=== PATIENT | male | born 1940 | race Hispanic/Latino ===

== ENCOUNTER 2017-11-06 16:53 | Inpatient (IN) | payer MEDICARE ==
[2017-11-06 16:53] VITALS: BMI 19.8
--- NOTE | 2017-11-06 17:52 | ED PDOC ---
Arrival/HPI - General Chief Complaint: Abnormal Labs Time Seen by Provider: 11/06/17 17:22 Historian: Patient - History of Present Illness Narrative History of Present Illness (Text): 11/06/17 17:43 77yo male with PMHx of hypertension referred to ED by Dr. Thomas for admission. Patient had elevated Cr today during a pre testing lab. Per Dr. thomas he discussed case with both Dr. Holder and Dr. Pedraza and pt will be admitted for the new finding. In ED patient complained of his right great toe pain x months. He was scheduled for angiogram secondary to the foot pain/ discoloration. Denies chest pain, fever, any other complaint. Past Medical History - Provider Review Nursing Documentation Reviewed: Yes - Cardiac Hx Pacemaker: No - Neurological Hx Paralysis: No - Hematological/Oncological Hx Blood Transfusions: No - Musculoskeletal/Rheumatological Hx Musculoskeletal Disorders: No - Psychiatric Hx Emotional Abuse: No Hx Physical Abuse: No Hx Substance Use: No - Past Surgical History Past Surgical History: No Previous - Anesthesia Hx Anesthesia Reactions: No Hx Malignant Hyperthermia: No - Suicidal Assessment Feels Threatened In Home Enviroment: No Family/Social History - Physician Review Nursing Documentation Reviewed: Yes Family/Social History: Unknown Family HX Smoking Status: Current Some Days Smoker Hx Alcohol Use: No Hx Substance Use: No Hx Substance Use Treatment: No Allergies/Home Meds Allergies/Adverse Reactions: Allergies No Known Allergies Allergy (Verified 01/06/13 13:45) Home Medications: Home Meds Medication Instructions Recorded Confirmed Ciprofloxacin [Cipro] 500 mg PO BID 11/05/17 11/06/17 Lisinopril/Hydrochlorothiazide 1 tab PO DAILY 11/05/17 11/06/17 [Lisinopril-Hctz 20-25 mg Tab] Oxycodone HCl/Acetaminophen 1 tab PO Q8H PRN 11/05/17 11/06/17 [Endocet 5-325 Tablet] amLODIPine [Norvasc] 5 mg PO DAILY 11/05/17 11/06/17 Review of Systems - Physician Review All systems were reviewed & negative as marked: Yes - Review of Systems Constitutional: Normal Eyes: Normal ENT: Normal Respiratory: Normal Cardiovascular: Normal Gastrointestinal: Normal Genitourinary Male: Normal Musculoskeletal: Arthralgias (Right great toe pain/redness) Skin: Normal Neurological: Normal Endocrine: Normal Hemo/Lymphatic: Normal Psychiatric: Normal Physical Exam Vital Signs Reviewed: Yes Vital Signs Temp Pulse Resp BP Pulse Ox 11/06/17 21:52 78 18 147/81 100 11/06/17 19:50 61 12 127/64 100 11/06/17 16:59 97.6 F 60 18 131/71 100 Temperature: Afebrile Blood Pressure: Normal Pulse: Regular Respiratory Rate: Normal Appearance: Positive for: Well-Appearing, Non-Toxic, Comfortable Pain Distress: None Mental Status: Positive for: Alert and Oriented X 3 - Systems Exam Head: Present: Atraumatic, Normocephalic Pupils: Present: PERRL Extroacular Muscles: Present: EOMI Conjunctiva: Present: Normal Mouth: Present: Moist Mucous Membranes Neck: Present: Normal Range of Motion Respiratory/Chest: Present: Clear to Auscultation, Good Air Exchange. No: Respiratory Distress, Accessory Muscle Use Cardiovascular: Present: Regular Rate and Rhythm, Normal S1, S2. No: Murmurs Abdomen: Present: Normal Bowel Sounds. No: Tenderness, Distention, Peritoneal Signs Back: Present: Normal Inspection Upper Extremity: Present: Normal Inspection. No: Cyanosis, Edema Lower Extremity: Present: NORMAL PULSES (Decreased right pedis pulse), Erythema (Right great toe). No: Edema, CALF TENDERNESS, Tenderness, Swelling Neurological: Present: GCS=15, CN II-XII Intact, Speech Normal Skin: Present: Warm, Dry, Normal Color. No: Rashes Psychiatric: Present: Alert, Oriented x 3, Normal Insight, Normal Concentration Medical Decision Making ED Course and Treatment: 11/06/17 23:46 Pt referred to ED by Dr. Thomas for admission into Dr. Pedraza service. He DC with Dr. Olivera. Pt was seen in ED and admitted to Dr. Pedraza's service. He was treated for Hyperkalemeia. He had no EKG changes. - Medication Orders Current Medication Orders: Discontinued Medications Calcium Gluconate (Calcium Gluconate Iv) 1,000 mg IVP STAT STA Stop: 11/06/17 20:04 Last Admin: 11/06/17 21:02 Dose: 1,000 mg IVP Administration Document 11/06/17 21:02 YP (Rec: 11/06/17 21:03 YP [id number]) Charges for Administration # of IVP Administrations 1 Dextrose (Dextrose 50% Inj) 50 ml IVP STAT STA Stop: 11/06/17 20:04 Last Admin: 11/06/17 21:03 Dose: 50 ml IVP Administration Document 11/06/17 21:03 YP (Rec: 11/06/17 21:03 YP [id number]) Charges for Administration # of IVP Administrations 1 Insulin Human Regular (Humulin R) 8 units IV STAT STA Stop: 11/06/17 20:04 Last Admin: 11/06/17 21:03 Dose: 8 units eMAR Start Stop Document 11/06/17 21:03 YP (Rec: 11/06/17 21:03 YP [id number]) Intravenous Solution Start Date 11/06/17 Start Time 21:03 MAR Blood Glucose Document 11/06/17 21:03 YP (Rec: 11/06/17 21:03 YP [id number]) Blood Glucose Finger Stick Blood Glucose (70-120) 105 Sodium Bicarbonate (Sodium Bicarbonate 8.4% (50 Meq) Syringe) 50 meq IVP STAT STA Stop: 11/06/17 20:06 Last Admin: 11/06/17 21:03 Dose: 50 meq IVP Administration Document 11/06/17 21:03 YP (Rec: 11/06/17 21:03 YP [id number]) Charges for Administration # of IVP Administrations 1 Disposition/Present on Arrival - Present on Arrival Any Indicators Present on Arrival: No History of DVT/PE: No History of Uncontrolled Diabetes: No Urinary Catheter: No History of Decub. Ulcer: No History Surgical Site Infection Following: None - Disposition Have Diagnosis and Disposition been Completed?: Yes Diagnosis: Renal failure, Hyperkalemia Disposition: HOSPITALIZED Disposition Time: 17:55 Patient Plan: Admission Patient Problems: Current Active Problems Problem Status Onset Renal failure Acute Condition: FAIR
[2017-11-06 19:32] LABS: BASO # 0.04 K/mm3 (0.0-2.0); BASO % 0.3 % (0.0-3.0); EOS # 0.6 (0.0-0.7); EOS % 4.7 % (1.5-5.0); GRAN # 7.54 (1.4-6.5); HEMOGLOBIN 10.8 g/dL (14.0-18.0); LYMPH # 1.9 (1.2-3.4); LYMPH % 15.8 % (22.0-35.0); MEAN CELL VOLUME 94.4 fl (80.0-105.0); MEAN CORPUSCULAR HEMOGLOBIN 30.5 pg (25.0-35.0); MEAN CORPUSCULAR HGB CONC 32.3 g/dl (31.0-37.0); MEAN PLATELET VOLUME 9.6 fl (7.0-11.0); MONO # 1.8 (0.1-0.6); MONO % 15.2 % (1.0-6.0); RBC 3.54 10^6/uL (3.5-6.1); RED CELL DISTRIBUTION WIDTH 14.2 % (11.5-14.5); WHITE BLOOD COUNT 11.8 10^3/ul (4.5-11.0)
[2017-11-06 19:53] LABS: INR 0.9 (0.93-1.08); PROTHROMBIN TIME 10.2 SECONDS (9.4-12.5)
[2017-11-06 19:54] LABS: PARTIAL THROMBOPLASTIN TIME 28.9 Seconds (25.1-36.5)
[2017-11-06 19:56] LABS: ALB/GLOB RATIO 1.1 (1.1-1.8); ALBUMIN 3.9 g/dL (3.0-4.8); CALCIUM 9.2 mg/dL (8.4-10.5)
[2017-11-06 20:02] LABS: TROPONIN I 0.05 ng/mL
[2017-11-06] MEDS ORDERED: Dextrose 50% SYRINGE Inj (50 ml) IVP STA (20:03)
[2017-11-06] MEDS ORDERED: Insulin Regular 1 UNITS/0.01 ML ML IV STA (20:03)
[2017-11-06] MEDS ORDERED: Sodium Bicarbonate (8.4%) 50 Meq Syringe IVP STA (20:05)
[2017-11-07 07:04] LABS: BASO # 0.05 K/mm3 (0.0-2.0); BASO % 0.4 % (0.0-3.0); EOS # 0.4 (0.0-0.7); EOS % 3.2 % (1.5-5.0); GRAN # 8.03 (1.4-6.5); GRAN % 66.9 % (50.0-68.0); HEMOGLOBIN 10.7 g/dL (14.0-18.0); LYMPH # 1.8 (1.2-3.4); LYMPH % 15.3 % (22.0-35.0); MEAN CELL VOLUME 93.6 fl (80.0-105.0); MEAN CORPUSCULAR HEMOGLOBIN 29.9 pg (25.0-35.0); MEAN CORPUSCULAR HGB CONC 31.9 g/dl (31.0-37.0); MEAN PLATELET VOLUME 9.8 fl (7.0-11.0); MONO # 1.7 (0.1-0.6); MONO % 14.2 % (1.0-6.0); RBC 3.58 10^6/uL (3.5-6.1); RED CELL DISTRIBUTION WIDTH 14.1 % (11.5-14.5)
[2017-11-07 07:22] LABS: ALBUMIN 3.7 g/dL (3.0-4.8); CALCIUM 9.3 mg/dL (8.4-10.5)
[2017-11-07] MEDS ORDERED: Dextrose 5%/0.45% NS 1,000 ML IV SCH (10:15)
--- NOTE | 2017-11-07 12:19 | HP ---
LOCATION: The patient currently in room 363, bed 3. HISTORY OF PRESENT ILLNESS: The patient is a 77-year-old male with a previous history of hypertension, was referred by Dr. Rolle to the emergency room for admission. The patient has cyanosis with a small area of dry gangrene on the left great toe. It was noted that the patient had elevated BUN and creatinine and other abnormal labs and was therefore sent to the emergency room. As previously noted, the patient had complaints of pain of his right great toe for a number of months. He was scheduled for an angiogram, but was sent to the emergency room due to the noted irregularities in his lab work. PAST MEDICAL HISTORY: As per HPI. HOME MEDICATIONS: Oxycodone 5/325, lisinopril/hydrochlorothiazide 20/25 and ciprofloxacin 500 p.o. twice a day as well as Norvasc 5 mg p.o. daily. SOCIAL HISTORY: The patient is a smoker for 60 years, who quit 3 weeks ago. He does not use alcohol beverages. PHYSICAL EXAMINATION: VITAL SIGNS: Temperature of 97.8, pulse of 66, blood pressure of 117/78, respiratory rate of 20, O2 saturation of 98. HEENT: Unremarkable. NECK: Supple with a full range of motion. There are no bruits or adenopathy present. LUNGS: Clear to auscultation and percussion. HEART: Regular rate and rhythm. No murmurs, rubs or gallops. ABDOMEN: Soft. It is nontender. There is no organomegaly. EXTREMITIES: Show cyanosis with a small area of dry gangrene at the lateral tip of the right great toe. NEUROLOGICAL: There are no focal motor deficits. LABORATORY DATA: Lab values are a white blood count of 12.0, hemoglobin and hematocrit of 10.7 and 33.5. PTT and INR are normal. Chemistry shows a potassium of 5.1, BUN of 69 with a creatinine of 6.3 with the rest being normal. CURRENT DIAGNOSES: 1. Cellulitis with gangrene of the right great toe. 2. Renal failure. 3. Hypertension. PLAN: We will consult Dr. Irvin. Give the patient IV fluids. Continue treatment based on the outcome of the above. Ruddy Pedraza MD [facility] # [id number]
--- NOTE | 2017-11-07 14:39 | US ---
PROCEDURE: Ultrasound of the Kidneys HISTORY: RENAL ARTERY STENOSIS COMPARISON: None available. TECHNIQUE: Sonogram of the kidneys. FINDINGS: RIGHT KIDNEY: Measures: 9.4 x 4.3 x 4.2 cm. Right kidney appears normal in size and contour and there is no perinephric fluid collection related, urolithiasis or obstructive uropathy identified. No definitive parenchymal cyst or mass is appreciable. However, the cortical echogenicity is increased as well as there being cortical atrophy. Consider potential intrinsic medical renal disease. LEFT KIDNEY: Measures: 9.4 x 4.8 x 3.9 cm. Left kidney appears normal in size and contour and there is no perinephric fluid collection related, urolithiasis or obstructive uropathy identified. No definitive parenchymal cyst or mass is appreciable. However, the cortical echogenicity is increased as well as there being cortical atrophy. Consider potential intrinsic medical renal disease. OTHER FINDINGS: None. IMPRESSION: No obstructive uropathy is identified bilaterally. Increased cortical echogenicity suggests possible intrinsic medical renal disease. Bilateral renal cortical atrophy is appreciated.
--- NOTE | 2017-11-07 18:34 | US ---
PROCEDURE: Bilateral renal artery duplex ultrasound. CLINICAL HISTORY: Renal artery stenosis. End-stage renal disease. Evaluate for ischemic nephropathy PHYSICIAN(S): Renaldo Rolle M.D. TECHNIQUE: Duplex sonography with color-flow Doppler was used to evaluate the visualized segments of the main renal arteries. The patient was evaluated in a fasting state. Imaging in a supine and decubitus position was performed. Limited evaluation of the arcuate waveforms and resistive indices were performed. FINDINGS: The exam is somewhat limited The kidneys are normal in size, shape, and location. Renal parenchyma is somewhat echogenic. The right kidney measures 9.4cm in length and the left kidney measures 9.6cm in length. No solid renal masses, abnormal calcifications, or hydronephrosis is seen. The main right renal artery is fairly well visualized. The peak systolic velocity in the right main renal artery is 206 cm/sec. This is consistent with a 0 to 49% stenosis in the main right renal artery. The arcuate waveforms are normal. The resistive index is slightly elevated The main left renal artery is only seen in segments.. The peak systolic velocity in the main left renal artery is 244cm/sec. This is borderline elevated. IMPRESSION: 1. The main renal arteries are not well seen.. 2. Borderline elevation in the proximal left renal artery is noted. 3. The kidneys are relatively normal in size. However, the renal parenchyma is somewhat echogenic, more noticeable on the left than the right. No solid renal masses or hydronephrosis is seen.
--- NOTE | 2017-11-07 23:49 | CARD ---
APPROVED REPORT EKG Measurement Heart [id number] <Conclusion> Sinus rhythm with marked sinus arrhythmia with 1st degree AV block Left axis deviation Right bundle branch block Abnormal ECG
--- NOTE | 2017-11-08 00:57 | CON ---
DATE: 11/07/2017 REASON FOR CONSULTATION: Acute kidney injury, hyperkalemia, cold right foot. HISTORY OF PRESENTING ILLNESS: This is a 77-year-old male previously unknown to me, was sent to the emergency room by Dr. Renaldo Rolle. Patient had presented to Dr. Rolle with complaints of pain and discoloration of his right great toe and multiple toes. Patient was found to have no pulses. Patient was scheduled for an angiogram. Preadmission blood showed creatinine of 7. Hence, procedure was canceled and patient was sent to the emergency room. Patient denies any knowledge of any kidney disease. He denies any history of any diabetes. He does report that he has hypertension. He denies any heart disease. Patient is a poor historian. He admits to smoking at least two packs per day. He denies any chest tightness, palpitations. He denies any urinary complaints. He admits to some weight loss. He reports that his appetite is poor. PAST MEDICAL AND SURGICAL HISTORY: Patient is a poor historian, he gives a history of hypertension. FAMILY HISTORY: Noncontributory. SOCIAL HISTORY: Smokes two packs per day, no alcohol use, no IV drug abuse. ALLERGIES: NO KNOWN DRUG ALLERGIES. MEDICATIONS AT HOME: Amlodipine 5 mg daily, Percocet, lisinopril and hydrochlorothiazide 20/25. REVIEW OF SYSTEMS: Patient denies any chest pain, palpitations. He denies any shortness of breath. He denies any abdominal pain. He denies any nausea, vomiting. All other symptoms are reviewed and unremarkable except for pain in his right foot and right lower leg. PHYSICAL EXAMINATION: GENERAL: Thinly built elderly male lying in bed. VITAL SIGNS: Blood pressure 117/78, heart rate 66, respiratory rate 20, temperature 97.8. HEENT: Normocephalic, atraumatic, positive pallor. NECK: Supple, no JVD. LUNGS: Bilateral equal air entry, bilateral equal expansion, no rales. CARDIAC: S1 and S2, regular rate and rhythm, no murmur, no rub. ABDOMEN: Soft, nondistended, nontender, bowel sounds present. EXTREMITIES: No lower extremity edema, cyanosis of the right great toe, purple discoloration of multiple tips of all toes. Peripheral pulses not palpable. LABORATORY DATA AND IMAGING: WBC 12, hemoglobin 10.7, hematocrit 34, platelets 305. Sodium 144, potassium 5.1, chloride 107, CO2 of 24, BUN 69, creatinine 6.3, glucose 110, calcium 9.3. AST 34, ALT 32, albumin 3.7. INR 0.9. Renal ultrasound: Right kidney 9 cm, increased cortical echogenicity; left kidney 9.4 cm, no obstructive uropathy. ASSESSMENT: 1. Acute kidney injury superimposed on chronic kidney disease, stage IV, although patient denies any knowledge of any chronic kidney disease. Review of records from PMD's office shows that his creatinine was 2.8 in 04/2017. 2. Hypertension. 3. Peripheral vascular disease. 4. Heavy smoking. PLAN: 1. Etiology of his acute kidney injury could be atheroembolic disease, it could be ischemic nephropathy, prerenal azotemia. It appears that the patient is prerenal. He has not been eating very well, plus he was on ELOY inhibitor, plus diuretic. 2. Check urine eosinophils. 3. Check C3, C4. 4. Follow up renal artery Dopplers. 5. Avoid nephrotoxins. 6. Monitor urine output. Thank you for the courtesy of this consultation. We will follow this patient closely with you. Latrice Holder MD
[2017-11-08] MEDS: Dextrose 5%/0.9% NS 1,000 ML IV SCH ×2 (04:00→18:02)
[2017-11-08 04:44] LABS: URINE APPEARANCE SLIGHT-CLOUDY (CLEAR); URINE BILIRUBIN NEGATIVE (NEGATIVE); URINE BLOOD TRACE-LYSED (NEGATIVE); URINE COLOR YELLOW (YELLOW); URINE GLUCOSE (UA) NEGATIVE (NEGATIVE); URINE LEUKOCYTE ESTERASE NEGATIVE Leu/uL (NEGATIVE); URINE NITRATE NEGATIVE (NEGATIVE); URINE PROTEIN 30 mg/dL (<30 mg/dL); URINE UROBILINOGEN 0.2 E.U./dL (<1 E.U./dL)
[2017-11-08 04:48] LABS: URINE AMORPHOUS SEDIMENT SMALL; URINE BACTERIA TRACE (NEG)
[2017-11-08 09:05] LABS: BASO # 0.05 K/mm3 (0.0-2.0); BASO % 0.5 % (0.0-3.0); EOS # 0.8 (0.0-0.7); EOS % 7.8 % (1.5-5.0); GRAN # 5.82 (1.4-6.5); HEMOGLOBIN 10.2 g/dL (14.0-18.0); LYMPH % 19.4 % (22.0-35.0); MEAN CELL VOLUME 94.1 fl (80.0-105.0); MEAN CORPUSCULAR HGB CONC 31.9 g/dl (31.0-37.0); MEAN PLATELET VOLUME 9.9 fl (7.0-11.0); MONO # 1.4 (0.1-0.6); MONO % 14.3 % (1.0-6.0); RBC 3.4 10^6/uL (3.5-6.1); RED CELL DISTRIBUTION WIDTH 14.1 % (11.5-14.5)
[2017-11-08 09:42] LABS: ALB/GLOB RATIO 1.1 (1.1-1.8); ALBUMIN 3.6 g/dL (3.0-4.8); CALCIUM 9.2 mg/dL (8.4-10.5)
--- NOTE | 2017-11-08 10:11 | PN ---
DATE: SUBJECTIVE: The patient is currently seen sitting up in bed, eating breakfast. IV fluids are infusing. Creatinine has dropped from 7.4 down to 6.3. His previous baseline was 2.8 back in 2017. The patient continues to complain of pain in his right big toe secondary to what appears to be peripheral vascular disease, possibly embolic in nature. MEDICATIONS: Medication list reviewed. The patient is currently on IV fluid hydration alone. Lisinopril/hydrochlorothiazide had been discontinued. OBJECTIVE: INTAKE/OUTPUT: Intake 1620, output 400. VITAL SIGNS: Off blood pressure medications, systolic blood pressure 133, diastolic 84. Pulse 59, temperature 98.8, respiratory rate 18 with a pulse ox of 100%. HEENT: Shows him to be normocephalic, atraumatic. Conjunctivae are pink. Sclerae are nonicteric. NECK: Supple. No neck vein distention. CHEST: Clear to auscultation and percussion. No rales. No rhonchi or wheezing. CARDIOVASCULAR: Shows a regular rate and rhythm with no murmurs, rubs or gallops noted. ABDOMEN: Soft. Bowel sounds normal. No rebound. No guarding or masses. EXTREMITIES: Show a painful to touch right big toe, cyanotic at the tip with purple discoloration. Significantly reduced peripheral pulses in his lower extremity. There is no edema of the lower extremity. NEURO: Shows him to be alert, oriented with no gross focal motor or sensory deficits. No asterixis. LABORATORY DATA AND IMAGING: CBC: White blood cell count 12.0, hemoglobin 10.7 with a platelet count of 305,000. Coags are normal. Chemistry showed a potassium, which is now down to 5.1. Sodium 144. BUN 69 with a creatinine of 6.3, down from a BUN of 74. Creatinine is down from a high of 7.4. These were yesterday's chemistries. Glucose is 110. Calcium is 9.3. Phosphorus level is pending. Albumin level was 3.7. Urine showed trace protein. 5-10 red blood cells and 2-5 white blood cells and trace bacteria. Urine eosinophil stain was negative. Urine random creatinine was 127 with a urine sodium of 66. Fractional secretion of sodium is greater than 1%. Ultrasound studies: The patient's renal ultrasound study showed right and left kidneys 9.4 cm. He had bilateral cortical thinning on the formal renal ultrasound. No evidence for hydronephrosis. Increased echogenicity. The renal artery Doppler study was limited. No evidence for significant renal artery stenosis noted. ASSESSMENT: Acute renal failure superimposed on chronic kidney disease stage IV. The patient has been a heavy cigarette smoker. He likely has significant peripheral vascular disease. Whether or not this is embolic in nature is unclear. The patient does not appear to be in atrial fibrillation. He appears to be in a normal sinus rhythm. The patient is mildly symptomatic. He had a.m. nausea. Otherwise, no gonzález uremic symptoms. I am concerned if with discontinuation of the angiotensin-converting enzyme inhibitor, diuretic and continued intravenous fluid hydration, he creatinine does not return back to his baseline range. I did discuss with the patient the possibility of him requiring renal replacement therapy. I will obtain a 24-hour urine for creatinine clearance and protein. It is unlikely that a renal biopsy would be helpful in this setting as he appears to have increased echogenicity and cortical scarring, likely consistent with longstanding chronic kidney disease. There is no evidence for acute interstitial nephritis. 1. Hypertension. The patient can receive calcium channel gi therapy. Avoid angiotensin-converting enzyme inhibitor and diuretic therapy. 2. History of significant peripheral vascular disease, likely secondary to years of cigarette smoking. Unclear whether there is any component of atheroembolic disease, though discoloration of the big toe of the right foot and diminished pulses would suggest severe peripheral vascular disease. 3. Rule out secondary hyperparathyroidism. Obtain a phosphorus level. Start the patient on binder therapy and the patient should be on a renal diet. PLAN: 1. Lengthy discussion with the patient about the possibility of the need to consider renal replacement therapy. This will be entertained if there is no reversal in his chronic kidney disease and his clearances are indeed going to be low. 2. Calcium channel gi therapy for blood pressure control. 3. Renal diet. 4. Continue IV fluid hydration. 5. Discussed with the patient that in all likelihood his history of heavy cigarette smoking had got him to this point in time. 6. We will order an echocardiogram to evaluate LV function. 7. Continue the evaluation by [facility] for peripheral vascular disease. 8. Continue pain medication for his painful right toe. 9. ID consult requested. This is pending at this time. Mendez Mack MD
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
[2017-11-08 11:41] LABS: COMPLEMENT C4 38.1 mg/dL (14.0-44.0)
--- NOTE | 2017-11-08 12:22 | PN ---
SUBJECTIVE: The patient was seen and examined at bedside on the general medical henson. No acute events overnight. He remains afebrile and hemodynamically stable. This morning he complains of pain to his right first toe but otherwise offers no complaints. OBJECTIVE: VITAL SIGNS: temperature 98.8, pulse 59, blood pressure 133/84, respiratory rate 18, oxygen saturation 100% on room air. GENERAL: No apparent distress. HEENT: PERRL. EOMI. No scleral icterus. Mild conjunctival pallor is noted. NECK: No JVD. LUNGS: Clear to auscultation. CARDIOVASCULAR: Regular rate and rhythm. Normal S1 and S2. ABDOMEN: Normoactive bowel sounds. Soft, nontender, nondistended. EXTREMITIES: No edema. Multiple toes with purple discoloration and cool to touch. Distal pulses nonpalpable. NEUROLOGIC: Awake, alert and oriented x3. No focal motor deficits. LABORATORY DATA: WBC 12 with 67% neutrophils, hemoglobin 10.7, hematocrit 33, platelets 305. Sodium 144, potassium 5.1, chloride 107, bicarb 24, BUN 69, creatinine 6.3, glucose 110. IMAGING STUDIES: 1. Renal artery ultrasound demonstrated echogenic parenchyma with no solid masses or hydronephrosis. 2. Renal ultrasound demonstrated no obstructive uropathy and increased cortical echogenicity bilaterally suggestive of intrinsic medical renal disease. 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 RADHA on CKD, stage IV. Input from Dr. Holder noted and greatly appreciated. Etiology of acute kidney injury may be secondary to atheroembolic disease versus prerenal azotemia superimposed on underlying CKD. Continue with care per Dr. Holder. 2. PVD Input from Dr. Renaldo Rolle noted and appreciated. We will check a lipid panel prior to initiating statin therapy. We will start Aspirin 81 mg p.o. daily. 3. Cellulitis of the right first toe. Patient had an x-ray performed approximately 3 weeks ago that was negative for osteomyelitis. We will consult Dr. Pollard of Podiatry for continued local wound care and defer further imaging studies to Dr. Pollard. We will also consult Dr. Barber of Infectious Disease for antimicrobial recommendations. 4. Hypertension. Blood pressure remains stable, off antihypertensives. We will continue to monitor and initiate antihypertensives as needed. 5. Prophylaxis. GI prophylaxis not indicated as patient is eating. DVT prophylaxis not indicated as patient is ambulatory. CODE STATUS: Full code. Tommie Pedraza MD MTDD
[2017-11-09] MEDS: Dextrose 5%/0.9% NS 1,000 ML IV SCH ×2 (04:57)
[2017-11-09 06:35] LABS: BASO # 0.06 K/mm3 (0.0-2.0); BASO % 0.6 % (0.0-3.0); EOS % 10.3 % (1.5-5.0); GRAN # 5.32 (1.4-6.5); GRAN % 56.3 % (50.0-68.0); HEMOGLOBIN 10.2 g/dL (14.0-18.0); LYMPH % 20.9 % (22.0-35.0); MEAN CELL VOLUME 94.2 fl (80.0-105.0); MEAN CORPUSCULAR HEMOGLOBIN 29.7 pg (25.0-35.0); MEAN CORPUSCULAR HGB CONC 31.6 g/dl (31.0-37.0); MEAN PLATELET VOLUME 9.8 fl (7.0-11.0); MONO # 1.1 (0.1-0.6); MONO % 11.9 % (1.0-6.0); RBC 3.43 10^6/uL (3.5-6.1); WHITE BLOOD COUNT 9.5 10^3/ul (4.5-11.0)
[2017-11-09 06:45] LABS: ALB/GLOB RATIO 0.9 (1.1-1.8); ALBUMIN 3.3 g/dL (3.0-4.8); CALCIUM 8.8 mg/dL (8.4-10.5); MAGNESIUM 1.8 mg/dL (1.7-2.2); URIC ACID 9.4 mg/dL (3.5-8.5)
[2017-11-09] MEDS: Dextrose 5%/0.45% NS 1,000 ML IV SCH (10:37)
--- NOTE | 2017-11-09 11:11 | PN ---
DATE: SUBJECTIVE: The patient is currently seen lying in bed. He is complaining of pain in his right big toe. He is awaiting pain medication. With IV fluid hydration and positive fluid balance, his BUN and creatinine have fallen to 41 and 3.4. Of note, his creatinine was in the upper 2 range back in 2017 on outpatient blood work. MEDICATIONS: Medication list reviewed. The patient is on D5 normal saline 80 mL an hour and aspirin. OBJECTIVE INTAKE/OUTPUT: Intake 2640, output only charted at 100 mL, which is not accurate as the patient states he has been using the toilet. VITAL SIGNS: Blood pressure 157/57, pulse 58, temperature 98.1, respiratory rate 18. HEENT: Exam shows him to be normocephalic, atraumatic. Conjunctivae are pink. Sclerae nonicteric. NECK: Supple. No neck vein distention. CHEST: Clear to auscultation and percussion. No rales. No rhonchi or wheezing. CARDIOVASCULAR: Regular rate and rhythm without murmurs, rubs, or gallops. ABDOMEN: Soft. Bowel sounds normal. No rebound, no guarding. No masses. EXTREMITIES: Now, has a dressing over his right lower foot. His toes were not examined. Previously, he had a painful to touch cyanotic right big toe with purple discoloration of the toes of the right foot. There is no lower extremity edema. LABORATORY DATA AND IMAGING: CBC: White blood cell count today 9.5, hemoglobin 10.2 and stable. Platelet count is 318,000. Chemistries showed a sodium of 144, potassium 4.5, chloride 111. CO2 was 24. BUN is down to 41 from a high of 74. Creatinine is down to 3.4 from a high of 6.8. Again, his outpatient creatinine levels have been in the upper 2 range in 2017. Glucose is 109. Uric acid is elevated at 9.4. Calcium, phosphorus, magnesium levels are all normal. Liver enzymes are normal. Albumin level is stable at 3.5. C3 and C4 levels are normal. His renal ultrasound done at the time of admission showed right and left kidneys are 9.4 cm. He had bilateral cortical thinning and increased echogenicity consistent with chronic medical renal disease. His renal artery Dopplers were nondiagnostic, but showed no evidence for significant renal artery stenosis. ASSESSMENT 1. Acute renal failure superimposed on chronic kidney disease stage IV. The patient has what appears to be significant peripheral vascular disease, perhaps atheroembolic disease. As evidenced by his cyanotic right big toe, he also could quite possibly have had atheroembolic disease to the kidney. Echocardiogram is pending. Renal ultrasounds are as noted above. No evidence for acute interstitial nephritis. Complement levels are normal, which would be against embolic disease to the kidney. It is encouraging to see improvement in his BUN and creatinine. The patient will be doing a 24-hour urine today. He needs to have a accurate Is and Os monitored. The patient will continue on IV fluid hydration. 2. History of hypertension. Blood pressure is trending higher. The patient will be started back on amlodipine. 3. History of significant peripheral vascular disease with cigarette smoking. 4. Possible secondary hyperparathyroidism. Phosphorus levels remained normal. Vitamin D level, PTH level are pending. PLAN 1. Discussed with the patient, I am encouraged by the improvement in his renal parameters as he appears to be returning back to baseline levels. 2. Start calcium channel gi therapy for hypertension. 3. Continue renal diet. 4. Continue IV fluid hydration as long as a BUN and creatinine continue to drop. I will switch the patient over to D5 half-normal saline in light of his sodium level of 145 and chloride level of 111, which are at the upper range of normal to mildly elevated. 5. Continued followup by Vascular Surgery for his peripheral vascular disease. 6. The patient will request pain medication for his painful right big toe. 7. Close monitoring of his daily labs and accurate Is and Os. 8. Discussed with staff on 3R. Mendez Mack MD
--- NOTE | 2017-11-09 12:09 | CP.PCM.PN ---
<Kentrell Hadley - Last Filed: 11/09/17 12:04> Subjective - Date & Time of Evaluation Date of Evaluation: 11/09/17 Time of Evaluation: 12:04 - Subjective Subjective: Podiatry Progress Note- Dr. Pollard 77 y.o male with PMH of HTN seen and examined for right foot ischemic changes with severe pain. Patient is seen resting comfortably in bed, in NAD, and AA0x3. Patient reports that he has pain to the RLE at the big toe and now as well as the 5th toe. He reports color changes noted to his big toe for a couple of weeks now. He denies n/v/sob/cp/chills or fever. No calf tenderness Objective - Vital Signs/Intake and Output Vital Signs (last 24 hours): Temp Pulse Resp BP Pulse Ox 98.1 F 71 18 133/80 100 11/09/17 07:50 11/09/17 10:33 11/09/17 07:50 11/09/17 10:33 11/09/17 07:50 Intake and Output: 11/09/17 11/09/17 06:59 18:59 Intake Total 1920 Balance 1920 - Medications Medications: Current Medications Amlodipine Besylate (Norvasc) 5 mg PO DAILY [facility] Last Admin: 11/09/17 10:33 Dose: 5 mg Aspirin (Aspirin Chewable) 81 mg PO DAILY [facility] Last Admin: 11/09/17 09:30 Dose: 81 mg Dextrose/Sodium Chloride (Dextrose 5%/0.45% Ns 1000 Ml) 1,000 mls @ 80 mls/hr IV .[id number] [facility] Last Admin: 11/09/17 10:37 Dose: 80 mls/hr Ceftaroline Fosamil 200 mg/ (Sodium Chloride) 100 mls @ 100 mls/hr IVPB Q12 [facility] PRN Reason: Protocol Stop: 11/18/17 22:01 Tramadol HCl (Ultram) 50 mg PO Q6H [facility] Last Admin: 11/09/17 10:32 Dose: 50 mg - Labs Labs: 11/09/17 05:00 11/09/17 05:00 PT 10.2 SECONDS (9.4-12.5) 11/06/17 17:50 INR 0.90 (0.93-1.08) L 11/06/17 17:50 APTT 28.9 Seconds (25.1-36.5) 11/06/17 17:50 - Constitutional Appears: Well, Non-toxic, No Acute Distress - Extremities Exam Extremities Exam: absent: Calf Tenderness Additional comments: Vasc: DP and PT nonpalpable, temperature gradient cool to cool, no edema noted to the LE, CFT delayed to the digits Ortho: severe pain noted with light palpation to the right hallux and and 5th digit, moderate pain with palpation to the forefoot starting at the level of MPJ and distally. Neuro: gross and protective sensation intact Derm: ischemic changes noted to the digits, most ischemic changes noted to the hallux and 5th digit: blue-shawnee erythematous discoloration; superficial skin breakdown noted to the medial aspect of the hallux, no calor, no erythema, no fluctanance, no abscess, no clinical signs of infection - Neurological Exam Neurological Exam: Alert, Awake, Oriented x3 - Psychiatric Exam Psychiatric exam: Normal Affect, Normal Mood Assessment and Plan - Assessment and Plan (Free Text) Assessment: 77 y.o male with PMH of HTN with 1) ischemic pain 2) ischemic changes to the forefoot, most prominent hallux and 5th digit 3) superficial skin breakdown to medial hallux all on RIGHT foot Plan: Patient examined and evaluated Discussed plan in detail with attending Dr. Pollard Labs, vitals, chart reviewed (afebrile, absent leukocytosis) Right hallux cleansed with saline solution and dressed with xeroform, dsd, and kerlix No surgical intervention by podiatry at this time Will continue to monitor while in house <Jason Pollard - Last Filed: 11/11/17 10:59> Objective - Vital Signs/Intake and Output Vital Signs (last 24 hours): Temp Pulse Resp BP Pulse Ox 97.9 F 72 20 136/83 99 11/11/17 08:36 11/11/17 10:49 11/11/17 08:36 11/11/17 10:49 11/11/17 08:36 Intake and Output: 11/11/17 11/11/17 06:59 18:59 Intake Total 300 240 Output Total 500 500 Balance -200 -260 - Medications Medications: Current Medications Amlodipine Besylate (Norvasc) 5 mg PO DAILY [facility] Last Admin: 11/11/17 10:49 Dose: 5 mg Aspirin (Aspirin Chewable) 81 mg PO DAILY [facility] Last Admin: 11/11/17 10:47 Dose: 81 mg Atorvastatin Calcium (Lipitor) 20 mg PO DIN [facility] Last Admin: 11/10/17 18:23 Dose: 20 mg Enoxaparin Sodium (Lovenox) 30 mg SC DAILY [facility] PRN Reason: Protocol Last Admin: 11/11/17 10:48 Dose: 30 mg Dextrose/Sodium Chloride (Dextrose 5%/0.45% Ns 1000 Ml) 1,000 mls @ 80 mls/hr IV .[id number] [facility] Last Admin: 11/11/17 10:49 Dose: 80 mls/hr Ceftaroline Fosamil 200 mg/ (Sodium Chloride) 100 mls @ 100 mls/hr IVPB Q12 [facility] PRN Reason: Protocol Stop: 11/18/17 22:01 Last Admin: 11/11/17 10:48 Dose: 100 mls/hr Ondansetron HCl (Zofran Inj) 4 mg IVP Q6H [facility]N PRN Reason: Nausea/Vomiting Last Admin: 11/11/17 08:06 Dose: 4 mg Tramadol HCl (Ultram) 50 mg PO Q6H [facility] Last Admin: 11/11/17 10:47 Dose: 50 mg - Labs Labs: 11/11/17 05:30 11/11/17 05:30 PT 10.2 SECONDS (9.4-12.5) 11/06/17 17:50 INR 0.90 (0.93-1.08) L 11/06/17 17:50 APTT 28.9 Seconds (25.1-36.5) 11/06/17 17:50 Attending/Attestation - Attestation I have personally seen and examined this patient.: Yes I have fully participated in the care of the patient.: Yes I have reviewed all pertinent clinical information, including history, physical exam and plan: Yes
--- NOTE | 2017-11-09 18:37 | PN ---
SUBJECTIVE: The patient was seen and examined at bedside on the remote telemetry henson. Overnight he was noted to complain of persistent pain to his right first toe which has responded nicely to Tramadol. Otherwise he states he feels well and offers no complaints. OBJECTIVE: VITAL SIGNS: Temperature 98.1, pulse 71, blood pressure 133/80, respiratory rate 20, oxygen saturation 100% on room air. GENERAL: No apparent distress. HEENT: PERRL. EOMI. No scleral icterus. Mild conjunctival pallor is noted. NECK: No JVD. LUNGS: Clear to auscultation. CARDIOVASCULAR: Regular rate and rhythm. Normal S1 and S2. ABDOMEN: Normoactive bowel sounds. Soft, nontender, nondistended. EXTREMITIES: No edema. Multiple toes with purple discoloration (improving) and slightly cool to touch. Distal pulses nonpalpable. NEUROLOGIC: Awake, alert and oriented x3. No focal motor deficits. LABORATORY DATA: WBC 9.5 with 56% neutrophils, hemoglobin 10, hematocrit 32, platelets 318. Sodium 144, potassium 4.7, chloride 111, bicarb 24, BUN 41, creatinine 3.4, glucose 109. Cholesterol 147, triglycerides 190, HDL 33, LDL 73. ASSESSMENT: The patient is a 77 year old man with a past medical history of hypertension who was sent to the ED for evaluation acute kidney injury on chronic kidney disease and management of chronic right foot first digit cellulitis/gangrene secondary to peripheral vascular disease. PLAN: 1. RADHA on CKD. Input for Dr. Mack noted and greatly appreciated. Labs demonstrate a favorably trending renal function. Continue with care as per Dr. Mack. Continue to renally dose medications and avoid nephrotoxins. 2. PVD. Input from Dr. Rolle noted and appreciated. Lipid panel reviewed. Continue aspirin 81 mg p.o. daily and we will start Lipitor 20 mg p.o. daily. 3. Cellulitis of the right first toe. Continue with local care as per Dr. Pollard of Podiatry. Input from Dr. Barber noted and appreciated, and the patient has been started on Ceftaroline 200 mg IV q. 12 hours. We will continue to monitor for fever and leukocytosis. 4. Hypertension. Blood pressure remains stable. Continue with Amlodipine 5 mg p.o. daily. 5. Prophylaxis. GI prophylaxis not indicated as patient is eating. Start Lovenox 30 mg subcutaneously daily for DVT prophylaxis. CODE STATUS: Full code. Tommie Pedraza MD MTDCecilia
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
[2017-11-10 06:41] LABS: BASO # 0.05 K/mm3 (0.0-2.0); BASO % 0.6 % (0.0-3.0); EOS % 10.8 % (1.5-5.0); GRAN # 5.39 (1.4-6.5); HEMOGLOBIN 9.5 g/dL (14.0-18.0); LYMPH # 1.5 (1.2-3.4); LYMPH % 16.4 % (22.0-35.0); MEAN CELL VOLUME 93.8 fl (80.0-105.0); MEAN CORPUSCULAR HEMOGLOBIN 29.6 pg (25.0-35.0); MEAN CORPUSCULAR HGB CONC 31.6 g/dl (31.0-37.0); MEAN PLATELET VOLUME 9.8 fl (7.0-11.0); MONO # 1.1 (0.1-0.6); MONO % 12.2 % (1.0-6.0); RBC 3.21 10^6/uL (3.5-6.1); RED CELL DISTRIBUTION WIDTH 13.9 % (11.5-14.5)
[2017-11-10 06:58] LABS: ALBUMIN 3.1 g/dL (3.0-4.8); CALCIUM 8.7 mg/dL (8.4-10.5); MAGNESIUM 1.5 mg/dL (1.7-2.2)
[2017-11-10] MEDS: Enoxaparin 30 mg Syringe SC SCH (09:45)
[2017-11-10 10:59] LABS: URINE CREATININE 51.6 mg/dL
[2017-11-10 11:10] LABS: URINE 24 HOUR TOTAL PROTEIN 389 mg/24HR (42-225); URINE COLLECTION TIME 24 HOURS; URINE TOTAL VOLUME 1050 mL (800-1400)
--- NOTE | 2017-11-10 12:11 | MRI ---
PROCEDURE: MRI Right Foot HISTORY: Pain. COMPARISON: 10/20/2017 TECHNIQUE: Multiecho multiplanar sequences were performed through the right foot without the use of intravenous contrast. FINDINGS: BONES: No fracture. Normal marrow signal. Susceptibility artifact is noted along the dorsal aspect of the 2nd DIP joint and medial soft tissues of the 1st distal phalanx. MUSCLES: Normal. SOFT TISSUES: Normal. LISFRANC LIGAMENT: Normal. PLANTAR PLATE: Normal. EXTENSOR TENDONS: Normal. FLEXOR TENDONS: Normal. OTHER FINDINGS: None. IMPRESSION: Susceptibility artifact is noted along the dorsal aspect of the 2nd DIP joint and medial soft tissues of the 1st distal phalanx. This could be secondary to metallic foreign body though previous x-ray is unremarkable. No evidence of osteomyelitis.
--- NOTE | 2017-11-10 12:23 | PN ---
SUBJECTIVE: The patient was seen and examined at bedside on the remote telemetry henson. No acute events overnight. He remains afebrile and hemodynamically stable. He states that his pain at his right foot is adequately controlled with his tramadol and overall offers no complaints. OBJECTIVE: VITAL SIGNS: Temperature 98.8, pulse 66, blood pressure 123/80, respiratory rate 20, oxygen saturation 98% on room air. GENERAL: No apparent distress. HEENT: PERRL. EOMI. No scleral icterus. Mild conjunctival pallor is noted. NECK: No JVD. LUNGS: Clear to auscultation. CARDIOVASCULAR: Regular rate and rhythm. Normal S1 and S2. ABDOMEN: Normoactive bowel sounds, soft, nontender, and nondistended. EXTREMITIES: No edema. Multiple toes with purple discoloration (improving) and slightly cool to touch. Distal pulses nonpalpable. NEUROLOGIC: Awake, alert, and oriented x3. No focal or motor deficits. LABORATORY DATA: WBC 9 with 60% neutrophils, hemoglobin 9.5, hematocrit 30, and platelets 317. Sodium 140, potassium 4.5, chloride 109, bicarb 23, BUN 29, creatinine 3. Glucose 92. ASSESSMENT: The patient is a 77 year old man with a past medical history of hypertension who was sent to the ED for evaluation of acute kidney injury on chronic kidney disease and management of chronic right foot first digit cellulitis/gangrene secondary to peripheral vascular disease. PLAN: 1. RADHA on CKD. Input from Dr. Mack noted and greatly appreciated. Labs demonstrate a favorably trending renal function. Continue with care as per Dr. Mack. Continue to renally dose medications and avoid nephrotoxins. 2. PVD. Input from Dr. Rolle noted and appreciated. Continue Lipitor 20 mg p.o. daily and Aspirin 81 mg p.o. daily. 3. Cellulitis of the right first toe. Input from Dr. Barber greatly appreciated and the patient has been started on Ceftaroline 200 mg IV q. 12 hours. Continue with local wound care as per Dr. Pollard in the podiatry team. We will obtain an MRI to rule out osteomyelitis. 4. Hypertension. Blood pressure remains stable. Continue Amlodipine 5 mg p.o. daily. 5. Normocytic anemia. Lab demonstrates stable H/H. We will arrange for outpatient workup of this anemia with GI evaluation. 6. Prophylaxis. GI prophylaxis not indicated as patient is eating. Continue Lovenox for DVT prophylaxis. CODE STATUS: Full code. Tommie Pedraza MD MTDD
--- NOTE | 2017-11-10 13:56 | CP.PCM.PN ---
<Harinder Ocasio - Last Filed: 11/10/17 13:52> Subjective - Date & Time of Evaluation Date of Evaluation: 11/10/17 Time of Evaluation: 13:52 - Subjective Subjective: Podiatry Progress Note- Dr. Irvin 77 year old0 male patient with PMHx of HTN seen and examined for right foot ischemic changes with severe pain. Patient is seen resting comfortably in bed, in NAD, and AA0x3. Patient reports that he has severe pain to the RLE at the big toe. Patient reports that he has a little bruise on the 5th toe but does not have a lot of pain. He denies n/v/sob/cp/chills or fever. No calf tenderness Objective - Vital Signs/Intake and Output Vital Signs (last 24 hours): Temp Pulse Resp BP Pulse Ox 98.8 F 66 20 123/80 98 11/10/17 08:50 11/10/17 09:45 11/10/17 08:50 11/10/17 09:45 11/10/17 08:50 Intake and Output: 11/10/17 11/10/17 06:59 18:59 Intake Total 1840 360 Output Total 550 1650 Balance 1290 -1290 - Medications Medications: Current Medications Amlodipine Besylate (Norvasc) 5 mg PO DAILY [facility] Last Admin: 11/10/17 09:45 Dose: 5 mg Aspirin (Aspirin Chewable) 81 mg PO DAILY [facility] Last Admin: 11/10/17 09:45 Dose: 81 mg Atorvastatin Calcium (Lipitor) 20 mg PO DIN [facility] Last Admin: 11/09/17 16:19 Dose: 20 mg Enoxaparin Sodium (Lovenox) 30 mg SC DAILY [facility] PRN Reason: Protocol Last Admin: 11/10/17 09:45 Dose: 30 mg Dextrose/Sodium Chloride (Dextrose 5%/0.45% Ns 1000 Ml) 1,000 mls @ 80 mls/hr IV .[id number] [facility] Last Admin: 11/09/17 10:37 Dose: 80 mls/hr Ceftaroline Fosamil 200 mg/ (Sodium Chloride) 100 mls @ 100 mls/hr IVPB Q12 [facility] PRN Reason: Protocol Stop: 11/18/17 22:01 Last Admin: 11/10/17 09:46 Dose: 100 mls/hr Tramadol HCl (Ultram) 50 mg PO Q6H [facility] Last Admin: 11/10/17 05:33 Dose: 50 mg - Labs Labs: 11/10/17 06:00 11/10/17 10:20 PT 10.2 SECONDS (9.4-12.5) 11/06/17 17:50 INR 0.90 (0.93-1.08) L 11/06/17 17:50 APTT 28.9 Seconds (25.1-36.5) 11/06/17 17:50 - Constitutional Appears: Well, Non-toxic, No Acute Distress - Extremities Exam Additional comments: Vasc: DP/PT pulses are nonpalpable, temperature gradient cool to cool, no edema noted to the LE, CFT delayed to the digits Derm: ischemic changes noted to the digits, most ischemic changes noted to the hallux and 5th digit: blue-shawnee erythematous discoloration; superficial skin breakdown noted to the medial aspect of the hallux, no calor, no erythema, no fluctanance, no abscess, no clinical signs of infection Neuro: Protective sensation grossly intact Ortho: severe pain noted with light palpation to the right hallux and and 5th digit, moderate pain with palpation to the forefoot starting at the level of MPJ and distally. - Neurological Exam Neurological Exam: Alert, Awake, Oriented x3 - Psychiatric Exam Psychiatric exam: Normal Affect, Normal Mood Assessment and Plan - Assessment and Plan (Free Text) Assessment: 77 y.o male with PMHx of HTN with 1) ischemic pain 2) ischemic changes to the forefoot, most prominent hallux and 5th digit 3) superficial skin breakdown to medial hallux all on RIGHT foot Plan: Patient examined and evaluated with attending Dr. Irvin Labs, vitals, chart reviewed (afebrile, absent leukocytosis) Right hallux cleansed with saline solution and dressed with betadine, DSD X-rays and MRI reviewed of the right foot - no acute pathology noted on the x-ray. Suspicious artifact on the medial aspect of the right hallux Pain possibly secondary to ingrowing hallux nail on the medial border and ischemic changes - due to poor blood flow, will wait on performing partial nail avulsion and treat conservatively No surgical intervention by podiatry at this time Will continue to monitor while in house <Sylwia Irvin - Last Filed: 11/10/17 15:00> Objective - Vital Signs/Intake and Output Vital Signs (last 24 hours): Temp Pulse Resp BP Pulse Ox 98.8 F 66 20 123/80 98 11/10/17 08:50 11/10/17 09:45 11/10/17 08:50 11/10/17 09:45 11/10/17 08:50 Intake and Output: 11/10/17 11/10/17 06:59 18:59 Intake Total 1840 360 Output Total 550 1650 Balance 1290 -1290 - Medications Medications: Current Medications Amlodipine Besylate (Norvasc) 5 mg PO DAILY [facility] Last Admin: 11/10/17 09:45 Dose: 5 mg Aspirin (Aspirin Chewable) 81 mg PO DAILY [facility] Last Admin: 11/10/17 09:45 Dose: 81 mg Atorvastatin Calcium (Lipitor) 20 mg PO DIN [facility] Last Admin: 11/09/17 16:19 Dose: 20 mg Enoxaparin Sodium (Lovenox) 30 mg SC DAILY [facility] PRN Reason: Protocol Last Admin: 11/10/17 09:45 Dose: 30 mg Dextrose/Sodium Chloride (Dextrose 5%/0.45% Ns 1000 Ml) 1,000 mls @ 80 mls/hr IV .[id number] [facility] Last Admin: 11/09/17 10:37 Dose: 80 mls/hr Ceftaroline Fosamil 200 mg/ (Sodium Chloride) 100 mls @ 100 mls/hr IVPB Q12 [facility] PRN Reason: Protocol Stop: 11/18/17 22:01 Last Admin: 11/10/17 09:46 Dose: 100 mls/hr Tramadol HCl (Ultram) 50 mg PO Q6H [facility] Last Admin: 11/10/17 13:50 Dose: 50 mg - Labs Labs: 11/10/17 06:00 11/10/17 10:20 PT 10.2 SECONDS (9.4-12.5) 11/06/17 17:50 INR 0.90 (0.93-1.08) L 11/06/17 17:50 APTT 28.9 Seconds (25.1-36.5) 11/06/17 17:50 Attending/Attestation - Attestation I have personally seen and examined this patient.: Yes I have fully participated in the care of the patient.: Yes I have reviewed all pertinent clinical information, including history, physical exam and plan: Yes
--- NOTE | 2017-11-10 16:42 | CP.PCM.PN ---
Subjective - Date & Time of Evaluation Date of Evaluation: 11/10/17 Time of Evaluation: 09:40 - Subjective Subjective: Comfortable, no fevers. Objective - Vital Signs/Intake and Output Vital Signs (last 24 hours): Temp Pulse Resp BP Pulse Ox 98.8 F 66 20 123/80 98 11/10/17 08:50 11/10/17 09:45 11/10/17 08:50 11/10/17 09:45 11/10/17 08:50 Intake and Output: 11/10/17 11/10/17 06:59 18:59 Intake Total 1840 900 Output Total 550 1750 Balance 1290 -850 - Medications Medications: Current Medications Amlodipine Besylate (Norvasc) 5 mg PO DAILY [facility] Last Admin: 11/10/17 09:45 Dose: 5 mg Aspirin (Aspirin Chewable) 81 mg PO DAILY [facility] Last Admin: 11/10/17 09:45 Dose: 81 mg Atorvastatin Calcium (Lipitor) 20 mg PO DIN [facility] Last Admin: 11/09/17 16:19 Dose: 20 mg Enoxaparin Sodium (Lovenox) 30 mg SC DAILY [facility] PRN Reason: Protocol Last Admin: 11/10/17 09:45 Dose: 30 mg Dextrose/Sodium Chloride (Dextrose 5%/0.45% Ns 1000 Ml) 1,000 mls @ 80 mls/hr IV .[id number] [facility] Last Admin: 11/09/17 10:37 Dose: 80 mls/hr Ceftaroline Fosamil 200 mg/ (Sodium Chloride) 100 mls @ 100 mls/hr IVPB Q12 [facility] PRN Reason: Protocol Stop: 11/18/17 22:01 Last Admin: 11/10/17 09:46 Dose: 100 mls/hr Tramadol HCl (Ultram) 50 mg PO Q6H [facility] Last Admin: 11/10/17 13:50 Dose: 50 mg - Labs Labs: 11/10/17 06:00 11/10/17 10:20 PT 10.2 SECONDS (9.4-12.5) 11/06/17 17:50 INR 0.90 (0.93-1.08) L 11/06/17 17:50 APTT 28.9 Seconds (25.1-36.5) 11/06/17 17:50 - Constitutional Appears: Non-toxic - Head Exam Head Exam: NORMAL INSPECTION - Respiratory Exam Respiratory Exam: Decreased Breath Sounds - Cardiovascular Exam Cardiovascular Exam: +S1, +S2 - GI/Abdominal Exam GI & Abdominal Exam: Soft. absent: Tenderness - Extremities Exam Additional comments: right foot with dressings in place Assessment and Plan - Assessment and Plan (Free Text) Plan: Assessment Right foot cellulitis with right hallux gangrene R/O osteomyelitis Peripheral vascular disease HTN Plan Continue Teflaro day 2 pending wound cx; follow up MRI results and vascular work up will monitor clinically
[2017-11-11 06:35] LABS: BASO # 0.08 K/mm3 (0.0-2.0); EOS # 0.6 (0.0-0.7); EOS % 7.7 % (1.5-5.0); GRAN # 4.45 (1.4-6.5); GRAN % 54.8 % (50.0-68.0); HEMOGLOBIN 9.8 g/dL (14.0-18.0); LYMPH # 1.6 (1.2-3.4); MEAN CELL VOLUME 93.1 fl (80.0-105.0); MEAN CORPUSCULAR HEMOGLOBIN 29.6 pg (25.0-35.0); MEAN CORPUSCULAR HGB CONC 31.8 g/dl (31.0-37.0); MEAN PLATELET VOLUME 9.7 fl (7.0-11.0); MONO # 1.3 (0.1-0.6); MONO % 16.5 % (1.0-6.0); RBC 3.31 10^6/uL (3.5-6.1); RED CELL DISTRIBUTION WIDTH 13.5 % (11.5-14.5); WHITE BLOOD COUNT 8.1 10^3/ul (4.5-11.0)
[2017-11-11 07:19] LABS: ALBUMIN 3.1 g/dL (3.0-4.8); CALCIUM 8.4 mg/dL (8.4-10.5)
--- NOTE | 2017-11-11 08:24 | PN ---
DATE: 11/10/2017 SUBJECTIVE: The patient is seen lying in bed. He is awake, he is alert, he is complaining of pain in his right foot. PHYSICAL EXAMINATION: GENERAL: Thinly built elderly male lying in bed. VITAL SIGNS: Blood pressure 123/80, heart rate 66, respiratory rate 20, temperature 98.8. HEENT: Normocephalic, atraumatic. NECK: Supple, no JVD. LUNGS: Bilateral equal entry, no rales. CARDIAC: S1 and S2, regular rate and rhythm, no murmur, no rub. ABDOMEN: Soft, nondistended, nontender, bowel sounds present. EXTREMITIES: No lower extremity edema, improved cyanosis of the right four toes, dressing of the right great toe. INTAKE AND OUTPUT: 900/1750. LABORATORY DATA: WBC 9, hemoglobin 9.5, hematocrit 30, platelets 317. Sodium 40, potassium 4.5, chloride 109, CO2 of 23, BUN 29, creatinine 3.0, glucose 92, calcium 8.7, phosphorus 3.1, magnesium 1.5, albumin 3.1. A 24-hour urine creatinine clearance 12. Urine protein 389, complements normal. Rheumatoid factor less than 14. Urine eosinophils negative. CURRENT MEDICATIONS: Aspirin, ceftaroline, D5 half-normal saline at 80, Lipitor, Lovenox, amlodipine, and Ultram. Latrice Holder MD
--- NOTE | 2017-11-11 08:24 | PN ---
DATE: 11/10/2017 ADDENDUM MRI of the foot, no evidence of osteomyelitis. ASSESSMENT: 1. Acute kidney injury superimposed on chronic kidney disease, stage IV, baseline creatinine 2.18 in 04/2017. 2. Hypertension. 3. 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 4. Peripheral vascular disease. 5. Pre-gangrene of the right great toe. PLAN: 1. Continue IV fluids. 2. Avoid nephrotoxins. 3. Blood pressure is well controlled on amlodipine. 4. Plan for MRA with gadolinium as per Dr. Renaldo Rolle. Latrice Holder MD
[2017-11-11] MEDS ORDERED: Gadodiamide 287 MG/ML VIAL (20ML) IV ONE (09:47)
--- NOTE | 2017-11-11 09:49 | CARD ---
APPROVED REPORT EXAM: Two-dimensional and M-mode echocardiogram with Doppler and color Doppler. Other Information Quality : AverageRhythm : INDICATION HTN,CKD,ARF, ATHEROEMBLIC PVD,R/O THROMBUS 2D DIMENSIONS Left Atrium (2D)3.8 (1.6-4.0cm)IVSd1.1 (0.7-1.1cm) LVDd4.2 (3.9-5.9cm)PWd0.9 (0.7-1.1cm) LVDs2.9 (2.5-4.0cm)FS (%) 32.2 % LVEF (%)61.0 (>50%) M-Mode DIMENSIONS Aortic Root3.60 (2.2-3.7cm)Aortic Cusp Exc.1.80 (1.5-2.0cm) Aortic Valve AoV Peak Taxwulep795.0cm/s Mitral Valve MV E Nwpprghi94.3cm/sMV A Vwvvfeli97.2cm/sE/A ratio0.8 TDI Lateral E' Peak V8.87cm/sMedial E' Peak V7.12cm/sE/Lateral E'7.0 E/Medial E'8.8 Pulmonary Valve PV Peak Tjutbqyn19.9cm/sPV Peak Grad.2mmHg Tricuspid Valve TR Peak Bzsungwc300jq/sRAP TAFKOHIC00soGcWJ Peak Gr.40mmHg EWVJ42icEn LEFT VENTRICLE The left ventricle is normal size. There is normal left ventricular wall thickness. The left ventricular function is normal. The left ventricular ejection fraction is within the normal range. There is normal LV segmental wall motion. RIGHT VENTRICLE The right ventricle is normal size. ATRIA The left atrium size is normal. The right atrium size is normal. The interatrial septum is intact with no evidence for an atrial septal defect. AORTIC VALVE The aortic valve is normal in structure. MITRAL VALVE The mitral valve is normal in structure. Mitral regurgitation is trace to mild. TRICUSPID VALVE The tricuspid valve is normal in structure. There is mild tricuspid regurgitation. There is moderate pulmonary hypertension. PULMONIC VALVE The pulmonic valve is not well visualized. GREAT VESSELS The aortic root is normal in size. PERICARDIAL EFFUSION There is no pericardial effusion. <Conclusion> The left ventricle is normal size. There is normal left ventricular wall thickness. The left ventricular function is normal. Mitral regurgitation is trace to mild. There is mild tricuspid regurgitation. There is moderate pulmonary hypertension.
[2017-11-11] MEDS: Enoxaparin 30 mg Syringe SC SCH (10:48)
[2017-11-11] MEDS: Dextrose 5%/0.45% NS 1,000 ML IV SCH (10:49)
--- NOTE | 2017-11-11 12:06 | CP.PCM.PN ---
<Ceferino Ocasiogiusepperandall - Last Filed: 11/11/17 12:01> Subjective - Date & Time of Evaluation Date of Evaluation: 11/11/17 Time of Evaluation: 12:01 - Subjective Subjective: Podiatry Progress Note- Dr. Pollard 77 year old0 male patient with PMHx of HTN seen and examined for right foot ischemic changes with severe pain. Patient is seen resting comfortably in bed, in NAD, and AA0x3. Patient reports that he has severe pain to the RLE at the big toe and now to the 4th and 5th digit.He denies n/v/sob/cp/chills or fever. No calf tenderness. Patient reports that he had the LE MRA done yesterday. Objective - Vital Signs/Intake and Output Vital Signs (last 24 hours): Temp Pulse Resp BP Pulse Ox 97.9 F 72 20 136/83 99 11/11/17 08:36 11/11/17 10:49 11/11/17 08:36 11/11/17 10:49 11/11/17 08:36 Intake and Output: 11/11/17 11/11/17 06:59 18:59 Intake Total 300 240 Output Total 500 500 Balance -200 -260 - Medications Medications: Current Medications Amlodipine Besylate (Norvasc) 5 mg PO DAILY [facility] Last Admin: 11/11/17 10:49 Dose: 5 mg Aspirin (Aspirin Chewable) 81 mg PO DAILY [facility] Last Admin: 11/11/17 10:47 Dose: 81 mg Atorvastatin Calcium (Lipitor) 20 mg PO DIN [facility] Last Admin: 11/10/17 18:23 Dose: 20 mg Enoxaparin Sodium (Lovenox) 30 mg SC DAILY [facility] PRN Reason: Protocol Last Admin: 11/11/17 10:48 Dose: 30 mg Dextrose/Sodium Chloride (Dextrose 5%/0.45% Ns 1000 Ml) 1,000 mls @ 80 mls/hr IV .[id number] [facility] Last Admin: 11/11/17 10:49 Dose: 80 mls/hr Ceftaroline Fosamil 200 mg/ (Sodium Chloride) 100 mls @ 100 mls/hr IVPB Q12 [facility] PRN Reason: Protocol Stop: 11/18/17 22:01 Last Admin: 11/11/17 10:48 Dose: 100 mls/hr Ondansetron HCl (Zofran Inj) 4 mg IVP Q6H PRN PRN Reason: Nausea/Vomiting Last Admin: 11/11/17 08:06 Dose: 4 mg Tramadol HCl (Ultram) 50 mg PO Q6H [facility] Last Admin: 11/11/17 10:47 Dose: 50 mg - Labs Labs: 11/11/17 05:30 11/11/17 05:30 PT 10.2 SECONDS (9.4-12.5) 11/06/17 17:50 INR 0.90 (0.93-1.08) L 11/06/17 17:50 APTT 28.9 Seconds (25.1-36.5) 11/06/17 17:50 - Constitutional Appears: Well, Non-toxic, No Acute Distress - Extremities Exam Additional comments: Vasc: DP/PT pulses are nonpalpable, temperature gradient cool to cool, no edema noted to the LE, CFT delayed to the digits Derm: ischemic changes noted to the 4th and the 5th digits at the distal aspect , most ischemic changes noted to the hallux on the medial aspect: blue-shawnee erythematous discoloration; superficial skin breakdown noted to the medial aspect of the hallux, no calor, no erythema, no fluctanance, no abscess, no clinical signs of infection Neuro: Protective sensation grossly intact Ortho: severe pain noted with light palpation to the right hallux and and 4th and 5th digit, moderate pain with palpation to the forefoot starting at the level of MPJ and distally. - Neurological Exam Neurological Exam: Alert, Awake, Oriented x3 - Psychiatric Exam Psychiatric exam: Normal Affect, Normal Mood Assessment and Plan - Assessment and Plan (Free Text) Assessment: 77 y.o male with PMHx of HTN with 1) ischemic pain 2) ischemic changes to the forefoot, most prominent hallux, 4th and 5th digit 3) superficial skin breakdown to medial hallux all on RIGHT foot Plan: Patient examined and evaluated with attending Dr. Pollard Labs, vitals, chart reviewed (afebrile, absent leukocytosis) Right hallux cleansed with saline solution and dressed with betadine, DSD X-rays and MRI reviewed of the right foot - no acute pathology noted on the x-ray. Suspicious artifact on the medial aspect of the right hallux Pain possibly secondary to ingrowing hallux nail on the medial border and ischemic changes to the hallux as well as 4th and 5th digit - due to poor blood flow, will wait on performing partial nail avulsion and treat conservatively Possible emboli occlusion to the distal foot circulation Vascular team on board - await recommendation No surgical intervention by podiatry at this time Will continue to monitor while in house <Jason Pollard - Last Filed: 11/11/17 14:18> Objective - Vital Signs/Intake and Output Vital Signs (last 24 hours): Temp Pulse Resp BP Pulse Ox 97.9 F 72 20 136/83 99 11/11/17 08:36 11/11/17 10:49 11/11/17 08:36 11/11/17 10:49 11/11/17 08:36 Intake and Output: 11/11/17 11/11/17 06:59 18:59 Intake Total 300 480 Output Total 500 1000 Balance -200 -520 - Medications Medications: Current Medications Amlodipine Besylate (Norvasc) 5 mg PO DAILY [facility] Last Admin: 11/11/17 10:49 Dose: 5 mg Aspirin (Aspirin Chewable) 81 mg PO DAILY [facility] Last Admin: 11/11/17 10:47 Dose: 81 mg Atorvastatin Calcium (Lipitor) 20 mg PO DIN [facility] Last Admin: 11/10/17 18:23 Dose: 20 mg Enoxaparin Sodium (Lovenox) 30 mg SC DAILY [facility] PRN Reason: Protocol Last Admin: 11/11/17 10:48 Dose: 30 mg Ergocalciferol (Drisdol 50,000 Intl Units Cap) 1 cap PO Q7D [facility] Dextrose/Sodium Chloride (Dextrose 5%/0.45% Ns 1000 Ml) 1,000 mls @ 80 mls/hr IV .[id number] [facility] Last Admin: 11/11/17 10:49 Dose: 80 mls/hr Ceftaroline Fosamil 200 mg/ (Sodium Chloride) 100 mls @ 100 mls/hr IVPB Q12 [facility] PRN Reason: Protocol Stop: 11/18/17 22:01 Last Admin: 11/11/17 10:48 Dose: 100 mls/hr Magnesium Oxide (Mag-Ox) 400 mg PO BID [facility] Stop: 11/13/17 10:01 Ondansetron HCl (Zofran Inj) 4 mg IVP Q6H PRN PRN Reason: Nausea/Vomiting Last Admin: 11/11/17 08:06 Dose: 4 mg Tramadol HCl (Ultram) 50 mg PO Q6H [facility] Last Admin: 11/11/17 10:47 Dose: 50 mg - Labs Labs: 11/11/17 05:30 11/11/17 05:30 PT 10.2 SECONDS (9.4-12.5) 11/06/17 17:50 INR 0.90 (0.93-1.08) L 11/06/17 17:50 APTT 28.9 Seconds (25.1-36.5) 11/06/17 17:50 Attending/Attestation - Attestation I have personally seen and examined this patient.: Yes I have fully participated in the care of the patient.: Yes I have reviewed all pertinent clinical information, including history, physical exam and plan: Yes
--- NOTE | 2017-11-11 13:25 | PN ---
SUBJECTIVE: The patient was seen and examined at bedside on the remote telemetry henson. No acute events overnight. He remains afebrile and hemodynamically stable. He reports his pain is adequately controlled with his current analgesic regimen and his sole complaint is that of mild nausea and two episodes of nonbloody, nonbilious vomiting. PHYSICAL EXAMINATION: VITAL SIGNS: Temperature 97.6, pulse 65, blood pressure 124/73, respiratory rate 19, oxygen saturation 99% on room air. GENERAL: No apparent distress. HEENT: PERRL. EOMI. No scleral icterus. Mild conjunctival pallor is noted. NECK: No JVD. LUNGS: Clear to auscultation. CARDIOVASCULAR: Regular rate and rhythm. Normal S1 and S2. ABDOMEN: Normoactive bowel sounds, soft, nontender, and nondistended. EXTREMITIES: No edema. Right foot with wrapping in place. Distal pulses nonpalpable. NEUROLOGIC: Awake, alert, and oriented x3. No focal or motor deficits. LABORATORY DATA: WBC 8.1 with 55% neutrophils, hemoglobin 9.8, hematocrit 31, platelets 300. Sodium 139, potassium pending, chloride 106, bicarb 24, BUN 23, creatinine 2.9, and glucose 96. IMAGING STUDIES: MRI of the right foot without contrast demonstrates no evidence of osteomyelitis. ASSESSMENT: The patient is a 77 year old man with a past medical history of hypertension who was sent to the ED for evaluation of acute kidney injury on chronic kidney disease and management of chronic right foot first digit cellulitis/gangrene secondary to severe peripheral vascular disease. PLAN: 1. RADHA on CKD. Input from Dr. Mack noted and greatly appreciated. Labs continue to demonstrate a favorably trending renal function towards the patient' s baseline. Continue with care as per Dr. Mack. Continue to renally dose medications and avoid nephrotoxins. 2. PVD. Input from Dr. Rolle noted and appreciated. Continue Lipitor 20 mg p.o. daily and Aspirin 81 mg p.o. daily. The patient is pending an MRA of the bilateral lower extremities. 3. Cellulitis of the right first toe. MRI reviewed and demonstrates no evidence of osteomyelitis. Continue with local wound care as per Dr. Irvin and the Podiatry team. Continue with Ceftaroline 200 mg IV q. [address] Barber and Dr. Perkins. Today is day #3 of antibiotics. 4. Hypertension, blood pressure remains stable. Continue Amlodipine 5 mg p.o. daily. 5. Normocytic anemia. Labs demonstrates stable H/H. We will arrange for outpatient workup of this anemia with a GI evaluation. 6. Prophylaxis. GI prophylaxis not indicated as the patient is eating. Continue Lovenox for DVT prophylaxis. CODE STATUS: Full code. Tommie Pedraza MD MTDD
[2017-11-11] MEDS ORDERED: Ergocalciferol 50,000 Intl Units Cap PO SCH (14:00)
[2017-11-11] MEDS: Magnesium Oxide 400 mg Tab UD PO SCH (17:02)
--- NOTE | 2017-11-11 19:36 | PN ---
DATE: SUBJECTIVE: The patient is currently seen lying in bed. He still continues to complain of significant pain upon any touch or pressure of his right great toe. The patient is status post an MRA of his lower extremity. Results are pending. He had an MRI yesterday, which showed no evidence for osteomyelitis. The patient's creatinine continues to trend downward. He is at or near his baseline levels. MEDICATIONS: Medication list reviewed. The patient is currently on aspirin, ceftaroline, D5 half-normal saline 80 an hour, Lipitor, Lovenox, Norvasc, Ultram, and Zofran p.r.n. OBJECTIVE: INTAKE/OUTPUT: Intake 1250, output 2250. VITAL SIGNS: Blood pressure 136/83, pulse of 72, temperature 97.9, respiratory rate 20. HEENT: Normocephalic, atraumatic. Conjunctivae are pink. Sclerae nonicteric. NECK: Supple. No neck vein distention. CHEST: Clear to auscultation and percussion. No rales, rhonchi or wheezing. CARDIOVASCULAR: Shows a regular rate and rhythm. Mitral regurgitation, tricuspid regurgitation, moderate pulmonary hypertension. Left ventricle is normal in size. Left atria is normal in size. No evidence for thrombus. ABDOMEN: Soft. Bowel Sounds normal. No rebound, no guarding or masses. EXTREMITIES: Dressing over his right big toe. Right toes 2 through 5 show areas of purplish discoloration and cyanosis. No lower extremity edema. The right big toe was tender to touch. LABORATORY DATA AND IMAGING: CBC: White blood cell count 8.1, hemoglobin 9.8, platelet count is 300,000. Chemistries are normal. BUN down to 23 from a high of 74 with hydration. Creatinine down from a high of 6.8 to 2.9, approaching his baseline range, again with IV fluid hydration. Vitamin D level was low at less than 12.8. PTH level is mildly elevated at 84, consistent with secondary hyperparathyroidism. The patient to be started on ergocalciferol 50,000 units a week. ASSESSMENT: 1. 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 The patient appears to have significant peripheral vascular disease, perhaps atheroembolic in nature. He has cyanosis and purplish discoloration of toes of the right lower extremity. Echocardiogram showed no evidence for thrombus. Renal ultrasounds as noted above showed bilateral cortical thinning, increased echogenicity consistent with chronic medical renal disease. Renal artery Doppler studies were not diagnostic for renal artery stenosis. No evidence for acute interstitial nephritis. A 24-hour urine was done, which showed a creatinine clearance of 12 mL per minute with 389 mg of protein in the urine. Perhaps this is a slight under collection of urine. 2. History of hypertension. Blood pressure control is acceptable on calcium channel gi therapy. No plans for ELOY inhibition or angiotensin receptor gi therapy. 3. History of significant peripheral vascular disease with history of cigarette smoking. 4. Secondary hyperparathyroidism and vitamin D deficiency. The patient will be started on ergocalciferol. PLAN: 1. For right now, continue IV fluid hydration as BUN and creatinine are slowly trending back to his baseline. 2. Continue calcium channel gi therapy for hypertension. 3. Start vitamin D therapy as noted above. 4. Await results of vascular evaluation and MRA of his lower extremity. 5. IV antibiotic therapy as per Infectious Disease. 6. Continue pain medications for his painful right big toe. 7. Discussed with patient in detail. I did explain to him that he has advanced chronic kidney disease and will need close renal followup in the outpatient setting. We did not discuss the possible need for dialysis in the near future. Mendez Mack MD
--- NOTE | 2017-11-11 22:35 | MRI ---
EXAM: MR Angiography Left Extremity Lower With/Without Without And With Intravenous Contrast MR Angiography Right Extremity Lower With/Without Without And With Intravenous Contrast CLINICAL HISTORY: The patient age is 77 years old and is male; Pain; Foot pain; Bilateral; Additional info: Pvd. Ischemic rt great toe/pain Facility exam id and description: Mri mra loexbe mra low ext abd w/wo bi bundle TECHNIQUE: Magnetic resonance angiography images of the left extremity lower with/without without and with intravenous contrast. MIP reconstructed images were created and reviewed. CONTRAST: 20 mL of omni scan administered intravenously. COMPARISON: No relevant prior studies available. FINDINGS: Stenoses are visualized of the left common iliac artery, the degree of stenosis being approximately 50%. There is decreased signal intensity within the proximal right common iliac artery, and stenosis cannot be excluded. The bilateral internal iliac arteries are incompletely visualized, and patency of these vessels cannot be confirmed. There is a segment of the mid left femoral artery which is not visualized, consistent with occlusion. There is reconstitution of flow with collateral vessels. Additional stenoses are identified of the bilateral femoral arteries. The bilateral popliteal arteries are patent, without significant stenosis or occlusion. There is significant decreased flow within the right posterior tibial artery on the noncontrast images. Hemodynamically significant stenoses are visualized on the postcontrast MRA. This vessel is poorly visualized distally, consistent with severe stenosis or occlusion. Stenoses are visualized of the anterior tibial and peroneal arteries on the right side. There is significant decreased flow within the left posterior tibial and peroneal arteries. Focal flow voids are identified within these vessels on the postcontrast MRA, consistent with severe stenoses or occlusions with reconstitution. The left peroneal artery is patent. IMPRESSION: 1. Stenoses are visualized of the left common iliac artery, the degree of stenosis being approximately 50%. There is decreased signal intensity within the proximal right common iliac artery, and stenosis cannot be excluded. The bilateral internal iliac arteries are incompletely visualized, and patency of these vessels cannot be confirmed. 2. There is a segment of the mid left femoral artery which is not visualized, consistent with occlusion. There is reconstitution of flow with collateral vessels. Additional stenoses are identified of the bilateral femoral arteries. 3. There is significant decreased flow within the right posterior tibial artery on the noncontrast images. Hemodynamically significant stenoses are visualized on the postcontrast MRA. This vessel is poorly visualized distally, consistent with severe stenosis or occlusion. 4. Stenoses are visualized of the anterior tibial and peroneal arteries on the right side. 5. There is significant decreased flow within the left posterior tibial and peroneal arteries. Focal flow voids are identified within these vessels on the postcontrast MRA, consistent with severe stenoses or occlusions with reconstitution. EXAM: MR Angiography Abdomen With Intravenous Contrast EXAM DATE/TIME: 11/11/2017 8:00 AM CLINICAL HISTORY: The patient age is 77 years old and is male; Pain; Foot pain; Bilateral; Additional info: Pvd. Ischemic rt great toe/pain Facility exam id and description: Mri mra loexbe mra low ext abd w/wo bi bundle TECHNIQUE: Magnetic resonance angiography images of the abdomen with intravenous contrast. MIP reconstructed images were created and reviewed. CONTRAST: 20 mL of omni scan administered intravenously. COMPARISON: MR - FOOT W/O CONTRAST RIGHT 2017-11-10 10:44 FINDINGS: A flow void is visualized within the proximal right renal artery, consistent with severe stenosis or occlusion with reconstitution. There is stenosis of the proximal left renal artery. There is a limited evaluation/visualization of the bilateral distal renal arteries. There is stenosis of the infrarenal abdominal aorta. The degree of stenosis is approximately 62%. Irregularity of the abdominal aorta is visualized, consistent with atherosclerosis. Additional areas of mild stenoses are seen within the aorta. There is mild stenosis of the proximal superior mesenteric artery. The celiac artery is incompletely visualized, consistent with severe stenoses or occlusion. The inferior mesenteric artery is identified with a focal flow void consistent with severe stenosis or occlusion with reconstitution. For discussion of findings involving the iliac arteries, refer to the lower extremity MRA from the same day. This evaluation is limited by the absence of source images. IMPRESSION: 1. A flow void is visualized within the proximal right renal artery, consistent with severe stenosis or occlusion with reconstitution. There is stenosis of the proximal left renal artery. There is a limited evaluation/visualization of the bilateral distal renal arteries. 2. There is stenosis of the infrarenal abdominal aorta. The degree of stenosis is approximately 62%. 3. There is mild stenosis of the proximal superior mesenteric artery. The celiac artery is incompletely visualized, consistent with severe stenoses or occlusion. The inferior mesenteric artery is identified, with a focal flow void consistent with severe stenosis or occlusion with reconstitution. 4. Additional findings described above.
[2017-11-12] MEDS: Dextrose 5%/0.45% NS 1,000 ML IV SCH ×2 (01:19→09:28)
--- NOTE | 2017-11-12 04:42 | PN ---
DATE: SUBJECTIVE: The patient was seen earlier this morning, in room 363, bed 2. No fevers and chills. PHYSICAL EXAMINATION: VITAL SIGNS: On exam, temperature is 97, blood pressure is 140/80, respiratory rate of 20, heart rate of 53. HEENT: Unremarkable. NECK: Supple. LUNGS: Have decreased breath sounds. HEART: Normal S1 and S2. ABDOMEN: Soft, nontender. LABORATORY DATA: Reveals a white count of 8100, hemoglobin of 9, platelets of 300. Chemistries reveals a BUN of 23, creatinine of 2.9. Urinalysis is noted, and microbiology is noted. ASSESSMENT AND PLAN: This is a 77-year-old with right foot cellulitis and right hallux gangrene, peripheral vascular disease, on Teflaro day #3, with patient having foot MRI which has no evidence of osteomyelitis. We will discuss with Dr. Pollard. The patient also had an MRA, which is noted and reviewed. Microbiology is not available. Review of orders reveals the patient to be on ceftaroline. We will follow with you. Popeye Barber MD
[2017-11-12 07:30] LABS: BASO # 0.05 K/mm3 (0.0-2.0); BASO % 0.6 % (0.0-3.0); EOS # 0.6 (0.0-0.7); EOS % 7.4 % (1.5-5.0); GRAN # 4.48 (1.4-6.5); GRAN % 56.3 % (50.0-68.0); HEMOGLOBIN 9.5 g/dL (14.0-18.0); LYMPH # 1.7 (1.2-3.4); LYMPH % 21.9 % (22.0-35.0); MEAN CELL VOLUME 92.7 fl (80.0-105.0); MEAN CORPUSCULAR HGB CONC 32.3 g/dl (31.0-37.0); MEAN PLATELET VOLUME 9.4 fl (7.0-11.0); MONO # 1.1 (0.1-0.6); MONO % 13.8 % (1.0-6.0); RBC 3.17 10^6/uL (3.5-6.1); RED CELL DISTRIBUTION WIDTH 13.4 % (11.5-14.5)
[2017-11-12 07:52] LABS: ALBUMIN 3.1 g/dL (3.0-4.8); CALCIUM 8.3 mg/dL (8.4-10.5); MAGNESIUM 1.4 mg/dL (1.7-2.2)
[2017-11-12] MEDS: Magnesium Oxide 400 mg Tab UD PO SCH ×2 (09:27→17:06)
[2017-11-12] MEDS: Enoxaparin 30 mg Syringe SC SCH (09:29)
--- NOTE | 2017-11-12 10:14 | CP.PCM.PN ---
<Harinder Ocasio - Last Filed: 11/12/17 10:09> Subjective - Date & Time of Evaluation Date of Evaluation: 11/12/17 Time of Evaluation: 10:09 - Subjective Subjective: Podiatry Progress Note- Dr. Irvin 77 year old0 male patient with PMHx of HTN seen and examined for right foot ischemic changes with severe pain. Patient is seen resting comfortably in bed, in NAD, and AA0x3. Patient reports that he has severe pain to the RLE at the big toe and now to the 4th and 5th digit.He denies of having F/N/V/C/SOB/CP. No calf tenderness. Objective - Vital Signs/Intake and Output Vital Signs (last 24 hours): Temp Pulse Resp BP Pulse Ox 97 F L 64 20 130/68 99 11/11/17 16:54 11/12/17 09:27 11/11/17 16:54 11/12/17 09:27 11/11/17 16:54 Intake and Output: 11/12/17 11/12/17 06:59 18:59 Intake Total 0 Output Total 325 Balance -325 - Medications Medications: Current Medications Amlodipine Besylate (Norvasc) 5 mg PO DAILY [facility] Last Admin: 11/12/17 09:27 Dose: 5 mg Aspirin (Aspirin Chewable) 81 mg PO DAILY [facility] Last Admin: 11/12/17 09:28 Dose: 81 mg Atorvastatin Calcium (Lipitor) 20 mg PO DIN [facility] Last Admin: 11/11/17 17:02 Dose: 20 mg Enoxaparin Sodium (Lovenox) 30 mg SC DAILY [facility] PRN Reason: Protocol Last Admin: 11/12/17 09:29 Dose: 30 mg Ergocalciferol (Drisdol 50,000 Intl Units Cap) 1 cap PO Q7D [facility] Last Admin: 11/11/17 14:43 Dose: 1 cap Dextrose/Sodium Chloride (Dextrose 5%/0.45% Ns 1000 Ml) 1,000 mls @ 80 mls/hr IV .[id number] [facility] Last Admin: 11/12/17 09:28 Dose: 80 mls/hr Ceftaroline Fosamil 200 mg/ (Sodium Chloride) 100 mls @ 100 mls/hr IVPB Q12 [facility] PRN Reason: Protocol Stop: 11/18/17 22:01 Last Admin: 11/12/17 09:22 Dose: 100 mls/hr Magnesium Oxide (Mag-Ox) 400 mg PO BID [facility] Stop: 11/13/17 10:01 Last Admin: 11/12/17 09:27 Dose: 400 mg Ondansetron HCl (Zofran Inj) 4 mg IVP Q6H PRN PRN Reason: Nausea/Vomiting Last Admin: 11/11/17 16:54 Dose: 4 mg Tramadol HCl (Ultram) 50 mg PO Q6H [facility] Last Admin: 11/12/17 09:25 Dose: 50 mg - Labs Labs: 11/12/17 07:00 11/12/17 07:00 PT 10.2 SECONDS (9.4-12.5) 11/06/17 17:50 INR 0.90 (0.93-1.08) L 11/06/17 17:50 APTT 28.9 Seconds (25.1-36.5) 11/06/17 17:50 - Constitutional Appears: Well, Non-toxic, No Acute Distress - Extremities Exam Additional comments: Vasc: DP/PT pulses are nonpalpable, Cap refill time: > 3 sec to all digits, Temperature gradient cool to cool from proximal to distal no pitting or non- pitting edema noted to the LE Derm: ischemic changes noted to the 4th and the 5th digits at the distal aspect , most ischemic changes noted to the hallux on the medial aspect: blue-shawnee erythematous discoloration; superficial skin breakdown noted to the medial aspect of the hallux, no calor, no erythema, no fluctanance, no abscess, no clinical signs of infection Neuro: Protective sensation grossly intact Ortho: severe pain noted with light palpation to the right hallux and and 4th and 5th digit, moderate pain with palpation to the forefoot starting at the level of MPJ and distally. - Neurological Exam Neurological Exam: Alert, Awake, Oriented x3 - Psychiatric Exam Psychiatric exam: Normal Affect, Normal Mood Assessment and Plan - Assessment and Plan (Free Text) Assessment: 77 y.o male with PMHx of HTN with 1) ischemic pain 2) ischemic changes to the forefoot, most prominent hallux, 4th and 5th digit 3) superficial skin breakdown to medial hallux all on RIGHT foot Plan: Patient examined and evaluated with attending Dr. Irvin Labs, vitals, chart reviewed (afebrile, absent leukocytosis) Right hallux cleansed with saline solution and dressed with betadine, DSD X-rays and MRI reviewed of the right foot - no acute pathology noted on the x-ray. Suspicious artifact on the medial aspect of the right hallux Pain possibly secondary to ingrowing hallux nail on the medial border and ischemic changes to the hallux as well as 4th and 5th digit - due to poor blood flow, will wait on performing partial nail avulsion and will treat conservatively Possible emboli occlusion to the distal foot circulation MRA of the bilateral LE reviewed Vascular team on board - await recommendation No surgical intervention by podiatry at this time Will continue to monitor while in house <Sylwia Irvin - Last Filed: 11/16/17 15:27> Objective - Vital Signs/Intake and Output Vital Signs (last 24 hours): Temp Pulse Resp BP Pulse Ox 98.5 F 62 20 140/78 99 11/16/17 06:00 11/16/17 09:46 11/16/17 06:00 11/16/17 09:46 11/16/17 06:00 Intake and Output: 11/16/17 11/16/17 06:59 18:59 Intake Total 240 Balance 240 - Medications Medications: Current Medications Amlodipine Besylate (Norvasc) 5 mg PO DAILY [facility] Last Admin: 11/16/17 09:46 Dose: 5 mg Amoxicillin/Clavulanate Potassium (Augmentin 875 Mg-125 Mg Tab) 1 tab PO Q12 [facility] PRN Reason: Protocol Stop: 11/18/17 22:01 Last Admin: 11/16/17 09:46 Dose: 1 tab Aspirin (Aspirin Chewable) 81 mg PO DAILY [facility] Last Admin: 11/16/17 09:46 Dose: 81 mg Atorvastatin Calcium (Lipitor) 20 mg PO DIN [facility] Last Admin: 11/15/17 16:18 Dose: 20 mg Doxycycline Hyclate (Doryx) 100 mg PO Q12 [facility] PRN Reason: Protocol Stop: 11/18/17 22:01 Last Admin: 11/16/17 09:45 Dose: 100 mg Enoxaparin Sodium (Lovenox) 30 mg SC DAILY [facility] PRN Reason: Protocol Last Admin: 11/16/17 09:47 Dose: 30 mg Ergocalciferol (Drisdol 50,000 Intl Units Cap) 1 cap PO Q7D [facility] Last Admin: 11/11/17 14:43 Dose: 1 cap Dextrose/Sodium Chloride (Dextrose 5%/0.45% Ns 1000 Ml) 1,000 mls @ 80 mls/hr IV .[id number] [facility] Last Admin: 11/16/17 04:18 Dose: 80 mls/hr Iron Sucrose 200 mg/ Sodium (Chloride) 110 mls @ 110 mls/hr IVPB DAILY [facility] Stop: 11/19/17 10:59 Last Admin: 11/16/17 09:47 Dose: 110 mls/hr Ondansetron HCl (Zofran Inj) 4 mg IVP Q6H PRN PRN Reason: Nausea/Vomiting Last Admin: 11/16/17 05:16 Dose: 4 mg Tramadol HCl (Ultram) 50 mg PO Q6H [facility] Last Admin: 11/16/17 09:46 Dose: 50 mg - Labs Labs: 11/16/17 07:00 11/16/17 07:00 PT 10.2 SECONDS (9.4-12.5) 11/06/17 17:50 INR 0.90 (0.93-1.08) L 11/06/17 17:50 APTT 28.9 Seconds (25.1-36.5) 11/06/17 17:50 Attending/Attestation - Attestation I have personally seen and examined this patient.: Yes I have fully participated in the care of the patient.: Yes I have reviewed all pertinent clinical information, including history, physical exam and plan: Yes
[2017-11-12] MEDS: Acetylcysteine 20% Inhal Soln (4ml) PO SCH ×2 (12:39→17:07)
--- NOTE | 2017-11-12 12:48 | PN ---
SUBJECTIVE: The patient was seen and examined at the bedside on the remote telemetry henson. No acute events overnight. He remains afebrile and hemodynamically stable. This morning he feels okay but is frustrated that he remains in the hospital and just wants to go home. Otherwise he reports resolution of his nausea and vomiting with Zofran and offers no complaints. PHYSICAL EXAMINATION: VITAL SIGNS: Temperature 97, pulse 53, blood pressure 148/82, respiratory rate 20, oxygen saturation 99% on room air. GENERAL: No apparent distress. HEENT: PERRL. EOMI. No scleral icterus. Mild conjunctival pallor is noted. NECK: No JVD. LUNGS: Clear to auscultation. CARDIOVASCULAR: Regular rate and rhythm. Normal S1 and S2. ABDOMEN: Normoactive bowel sounds, soft, nontender, and nondistended. EXTREMITIES: No edema. Right foot with surgical dressing in place. Distal pulses nonpalpable. NEUROLOGIC: Awake, alert, and oriented x3. No focal or motor deficits. LABORATORY DATA: WBC 8, hemoglobin 9.5, hematocrit 29, platelets 296. Sodium 137, potassium 4.2, chloride 105, bicarb 25, BUN 29, creatinine 2.8, glucose 93, magnesium 1.4. IMAGING STUDIES: MRA of the abdomen and lower extremities bilaterally demonstrates multiple abnormalities suggestive of occlusion to the mid left femoral artery with reconstitution of flow with collateral vessels and multiple stenoses to the anterior tibial and peroneal arteries bilaterally. ASSESSMENT: The patient is a 77 year old man with past medical history of hypertension who was sent to the ED for the evaluation of RADHA on CKD and management of chronic right foot first digit cellulitis/gangrene with workup demonstrating significant PVD. PLAN: 1. RADHA on CKD. Input from Dr. Mack noted and greatly appreciated. Labs demonstrate a renal function trending towards baseline. Continue with care as per Dr. Mack. Continue to renally dose medications and avoid nephrotoxins. 2. PVD, severe. MRA reviewed and demonstrates significant underlying PVD. Continue Lipitor 20 mg p.o. daily and ASA 81 mg p.o. daily. We will discuss with Dr. Renaldo Rolle the optimal approach to address the patient's underlying PVD and possible need for vascular surgery evaluation. 3. Cellulitis of the right first toe. MRI demonstrates no evidence of osteomyelitis. Continue with local wound care as per Dr. Irvin and the Podiatry team. Continue with Ceftaroline 200 mg IV q. [address] Barber. Today is day #4 of antibiotics. 4. Hypertension, blood pressure remains stable. Continue Amlodipine 5 mg p.o. daily. 5. Normocytic anemia. Labs demonstrates stable H/H. We will arrange for outpatient workup of his anemia. 6. Prophylaxis. GI prophylaxis is not indicated as the patient is eating. Continue Lovenox for DVT prophylaxis. CODE STATUS: Full code. Tommie Pedraza MD MTDD
--- NOTE | 2017-11-12 16:36 | PN ---
DATE: 11/12/2017 SUBJECTIVE: The patient is seen lying in bed. is at bedside. He is awake. He is alert. He is complaining of pain in his right foot. He denies any chest pain. He denies any shortness of breath. Past medical and surgical history/family history/social history/review of systems all reviewed and unchanged unless documented. PHYSICAL EXAMINATION: GENERAL: Thinly built elderly male lying in bed. VITAL SIGNS: Blood pressure 130/68, heart rate 64, respiratory rate 18, temperature 98.2. HEENT: Normocephalic, atraumatic, positive pallor. NECK: Supple. No JVD. LUNGS: Bilateral equal air entry, bilateral equal expansion, no rales. CARDIAC: S1 and S2, regular rate and rhythm, no murmur, no rub. ABDOMEN: Soft, nondistended, nontender, bowel sounds present. EXTREMITIES: Dressing of the right great toe. No edema. INTAKE AND OUTPUT: 480/1325? LABORATORY DATA: WBC 8, hemoglobin 9.5, hematocrit 29, platelets 296. Sodium 137, potassium 4.2, chloride 105, CO2 of 25, BUN 19, creatinine 2.8, glucose 93, calcium 8.3, phosphorus 3.2, magnesium 1.4, albumin 3.1. CURRENT MEDICATIONS: Mucomyst, aspirin, ceftaroline, D5 half-normal saline at 80, Drisdol, Lipitor, Lovenox, mag oxide, amlodipine 5, tramadol, Zofran. ASSESSMENT: 1. Resolved acute kidney injury, creatinine is at baseline. 2. Hypertension. 3. Peripheral arterial disease. 4. Pre gangrene of right great toe. 5. Chronic anemia. PLAN: 1. Case is discussed at length with Dr. Renaldo Rolle and the patient and . The patient has stenosis of the left common iliac artery, segment of the left mid femoral artery is also occluded. He has high-grade stenosis of the right renal artery. Plan is for limited angiogram and possible left iliac stent placement. 2. The patient will continue to be an IV fluids. 3. Agree with Mucomyst. 4. I have discussed with the patient even with all the measures, there is a possibility of worsening renal function/acute kidney injury with dye exposure. Latrice Holder MD [facility] # [id number]
--- NOTE | 2017-11-12 22:18 | PN ---
DATE: SUBJECTIVE: The patient was seen in room 363, bed 2. Patient is in no acute distress, nontoxic. PHYSICAL EXAMINATION: VITAL SIGNS: On exam, temperature is 97, blood pressure is 120/70, respiratory rate of 16. HEENT: Unremarkable. NECK: Supple. LUNGS: Have decreased breath sounds. HEART: Normal S1 and S2. ABDOMEN: Soft, nontender. LABORATORY EXAMINATION: Reveals a white count of 8000, hemoglobin of 9, platelets of 296. Chemistries reveal a BUN of 19, creatinine of 2.9. Urinalysis is noted reviewed, and microbiology is reviewed. Review of orders reveals the patient to be on ceftaroline. Dr. Tommie Pedraza's note is reviewed. ASSESSMENT AND PLAN: This is a 77-year-old male, with right foot cellulitis and right hallux gangrene, peripheral vascular disease, on day #4 of Teflaro; negative MRI for osteomyelitis; significant peripheral vascular disease; acute kidney injury which appears to be on top of chronic kidney injury and appears to be improving. Upon discharge, maybe able to switch to p.o. antibiotics, maybe able to use p.o. doxycycline 100 mg p.o. b.i.d. and p.o. Augmentin 875 mg p.o. b.i.d. for a total of 5 to 7 days, since the MRI is negative for osteomyelitis. Popeye Barber MD
[2017-11-13] MEDS: Dextrose 5%/0.45% NS 1,000 ML IV SCH ×2 (05:32→17:35)
[2017-11-13] MEDS: Acetylcysteine 20% Inhal Soln (4ml) PO SCH ×3 (06:47→21:47)
[2017-11-13] MEDS ORDERED: Iodixanol 320 mg/ml 150 ml Bottle IV ONE (06:49)
[2017-11-13] MEDS ORDERED: Iodixanol 320 MG/ML 200 ML BOTTLE IV ONE (06:49)
[2017-11-13] MEDS ORDERED: Lidocaine 2% Inj (20ml) ONE (07:12)
[2017-11-13] MEDS ORDERED: Nitroglycerin 50mg in D5W 50 MG/250 ML BOTTLE IV ONE (07:13)
[2017-11-13] MEDS ORDERED: Iodixanol 320 MG/ML 100 ML BOTTLE IV ONE (07:13)
[2017-11-13] MEDS ORDERED: Iohexol 350mgl/ml 50 ML ONE (07:13)
[2017-11-13] MEDS ORDERED: HEPARIN SODIUM/NS 2,000 ML IV ONE (07:13)
[2017-11-13] MEDS ORDERED: Midazolam 2 MG/2 ML VIAL ONE ×2 (07:49→08:37)
[2017-11-13] MEDS ORDERED: HEPARIN SODIUM/NS 1,000 ML IV ONE (08:29)
--- NOTE | 2017-11-13 09:38 | PN ---
SUBJECTIVE: The patient was seen and examined at bedside on the remote telemetry henson. No acute events overnight. He remains afebrile and hemodynamically stable. This morning he is pending attempted IR revascularization with Dr. Renaldo Rolle given his extensive underlying PVD. The patient has been pretreated with Mucomyst so as to minimize the risk of contrast nephropathy in the setting of underlying CKD. OBJECTIVE: VITAL SIGNS: Temperature 97.7, pulse 61, blood pressure 130/68, respiratory rate 18, oxygen saturation 98% on room air. GENERAL: No apparent distress. HEENT: PERRL, EOMI. No scleral icterus. Mild conjunctival pallor is noted. NECK: No JVD. LUNGS: Clear to auscultation. CARDIOVASCULAR: Regular rate and rhythm. Normal S1 and S2. ABDOMEN: Normoactive bowel sounds. Soft, nontender and nondistended. EXTREMITIES: No edema. Right foot with dressing in place. Distal pulses nonpalpable. NEUROLOGIC: Awake, alert and oriented x 3. No focal motor deficits. LABORATORY DATA: Morning labs are pending. ASSESSMENT: The patient is a 77 year old man with past medical history of hypertension who was sent to the ED for evaluation of RADHA on CKD and management of chronic right foot first digit cellulitis with workup demonstrating significant underlying PVD. PLAN: 1. RADHA on CKD, resolved. Labs demonstrate renal function at the patient's baseline. Input from Dr. Mack and Dr. Holder greatly appreciated. Continue with care as per the Nephrology team. Continue to renally dose medications and avoid nephrotoxins. 2. PVD, severe. Continue Lipitor 20 mg p.o. daily and ASA 81 mg p.o. daily. The patient is being taken to the IR suite with Dr. Renaldo Rolle for attempted revascularization. He has been pretreated with Mucomyst so as to minimize the risk of contrast nephropathy. We will need to monitor his renal function closely for any signs of deterioration after his procedure. 3. Cellulitis of the right first toe. MRI demonstrates no evidence of osteomyelitis. Continue with local care as per Dr. Irvin and the Podiatric team. Input from Dr. Barber greatly appreciated and the patient remains on Ceftaroline 200 mg IV q. 12 hours (today is day #5 of antibiotics). Recommendations have been made for oral antibiotics consisting of Doxycycline 100 mg p.o. b.i.d. and Augmentin 875 mg p.o. b.i.d. for a total of 5-7 days. 4. Hypertension. Blood pressure remained stable. Continue Amlodipine 5 mg p.o. daily. 5. Normocytic anemia. Labs demonstrate stable H/H. We will arrange for outpatient workup of his anemia. 6. Prophylaxis. GI prophylaxis is not indicated as the patient is eating. Continue Lovenox for DVT prophylaxis. CODE STATUS: Full code. Tommie Pedraza MD [facility]
[2017-11-13] MEDS: Magnesium Oxide 400 mg Tab UD PO SCH (11:02)
--- NOTE | 2017-11-13 16:53 | VASCULAR ---
PROCEDURE: 1. Abdominal aortogram with selective right lower extremity angiogram 2. Right SFA drug-eluting balloon angioplasty 3. Right external iliac artery angioplasty and stent placement 4. Selective right renal arteriogram with pressure measurement HISTORY: Severe peripheral vascular disease. Right rest pain with digital gangrene. Acute on chronic renal failure. Renal artery stenosis by MRA PHYSICIAN(S): Renaldo Rolle M.D. TECHNIQUE: The relative risks and indications of the procedure were explained to the patient and consent obtained. The patient was hydrated prior to the procedure and the appropriate labs drawn. The patient was placed supine on the arteriogram table and the left groin prepped and draped in the usual sterile fashion. Conscious sedation and monitoring were provided throughout the procedure by a nurse. Via a left common femoral artery approach, a 5 Nigerian sheath was placed in the left groin. Through the sheath and over a guidewire, a 5 Nigerian flush catheter was placed in the abdominal aorta at the level of the bifurcation and bilateral oblique DSA pelvic arteriograms performed. The catheter was advanced over the bifurcation and placed in the proximal right SFA. An overlapping DSA right lower extremity arteriogram was performed. The multi focal disease in the right SFA was crossed with a 5 Nigerian catheter and angled Glidewire. A 0.035 Santana wire was placed in the right popliteal artery. Initially the right SFA was dilated with a 5 mm x 250 mm balloon. In addition the mid right SFA was dilated with a 6 mm x 150 mm drug-eluting balloon. A much improved angiographic result was obtained. No stent was placed. Pull-back pressures were obtained across the right iliac system. This revealed 50 mm gradient across the right external iliac artery and a borderline 7-10 mm gradient across the right common iliac artery. The right external iliac artery was dilated with a 7 mm balloon. An 8 mm by 60 self expanding stent was placed the right external iliac artery. A 7 mm x 40 mm self expanding stent extended to the inguinal ligament. These were dilated with an 8 mm balloon. An excellent angiographic result was obtained. Some difficulty the right renal artery was cannulated. This revealed 60-70 percent proximal right renal artery stenosis. However pull-back pressures demonstrated only a 10 mm systolic gradient. Subsequently no intervention was performed. The sheath was removed hemostasis obtained with a Mynx device. A Gaming catheter was placed. The patient urine output and renal function will be carefully monitored. FINDINGS: There is diffuse atherosclerotic disease and tortuosity the infrarenal abdominal aorta. Aortic bifurcation demonstrates tortuous and patent common iliac arteries bilaterally. Bilateral significant multi focal external iliac artery disease is seen. This is a high-grade stenosis of the left internal iliac artery. There is a moderate severe stenosis of the proximal right internal iliac artery. Right lower extremity: The right common femoral artery is patent. The right profunda femoral artery origin has a 60 percent stenosis. The right SFA is patent with multi focal moderate severe stenoses, most notable in its proximal to mid 3rd. The right popliteal artery is patent and continuous. There is 2 vessel runoff via the dominant right peroneal artery and a smaller right posterior tibial artery. There is a significant focal stenosis of the right tibioperoneal trunk and proximal right posterior tibial artery. There is poor filling of the pedal vessels. The plantar arch is eventually opacified. The right dorsalis pedis artery is not opacified. There is a 60-70 percent stenosis of the proximal right renal artery. As mentioned previously, there is only a 7-10 mm gradient. No intervention was performed. IMPRESSION: 1.Successful diffuse right SFA drug-eluting balloon angioplasty. 2. Right external iliac artery angioplasty and stent placement. 3. 60-70 percent proximal right renal artery stenosis. A borderline gradient was demonstrated and no intervention was performed.
[2017-11-13 16:55] LABS: IRON 33 ug/dL (45-180)
[2017-11-13 17:05] LABS: % IRON SATURATION 19 % (20-55); TOTAL IRON BINDING CAPACITY 172 ug/dL (261-462)
--- NOTE | 2017-11-14 03:26 | PN ---
DATE: 11/13/2017 SUBJECTIVE: The patient is in bed, in no acute distress, was seen early this morning in room 363, bed 2. PHYSICAL EXAMINATION: VITAL SIGNS: Temperature is 98, blood pressure is 120/60, respiratory rate 18. HEENT: Unremarkable. NECK: Supple. LUNGS: Have decreased breath sounds. HEART: Normal S1 and S2. ABDOMEN: Soft, nontender. LABORATORY EXAMINATION: Reveals a white count of 8000, hemoglobin of 9, platelets of 296. Chemistries reveal a BUN of 19, creatinine of 2.8. Urinalysis is noted. Immunology is noted. ASSESSMENT AND PLAN: This is a 77-year-old male with right foot cellulitis and right hallux gangrene, peripheral vascular disease, day #5 of Teflaro. MRI is negative for osteomyelitis. May be able to switch to p.o. Augmentin and p.o. doxycycline to complete therapy when the patient is ready for discharge. Popeye Barber MD
[2017-11-14] MEDS: Dextrose 5%/0.45% NS 1,000 ML IV SCH (05:07)
--- NOTE | 2017-11-14 09:20 | PN ---
DATE: 11/13/2017 SUBJECTIVE: The patient is seen lying in bed. He is awake. He is alert. He is comfortable. He denies any chest pain, shortness of breath. PHYSICAL EXAMINATION: GENERAL: Elderly male lying in bed. VITAL SIGNS: Blood pressure 122/64, heart rate 66, respiratory rate 18, temperature 98. HEENT: Normocephalic, atraumatic, positive pallor. NECK: Supple, no JVD. LUNGS: Bilateral equal air entry, rales. EXTREMITIES: Dressing of the great toe. INTAKE AND OUTPUT: 1175/900. LABORATORY DATA: WBC 8, hemoglobin 9.5, hematocrit 29.4, platelets 296. Sodium 137, potassium 4.2, chloride 105, CO2 25, BUN 19, creatinine 2.8, glucose 93, calcium 8.3, phosphorus 3.2, magnesium 1.4, albumin 3.1. CURRENT MEDICATIONS: Mucomyst, D5 half-normal saline at 80, Zofran, tramadol, amlodipine 5, Lovenox 30 subcu, Lipitor, vitamin D, aspirin. ASSESSMENT: 1. Coronary artery disease, status post angiogram, right iliac stent, angioplasty of right superficial femoral artery. 2. Resolved acute kidney injury. 3. Chronic kidney disease, stage IV. 5. Hypertension. 6. Anemia of chronic kidney disease. PLAN 1. Continue IV fluids. 2. Continue Mucomyst. 3. Monitor urine output. 4. Monitor labs tomorrow. 5. Check iron TIBC, ferritin with next blood work, check intact PTH, phosphorus. 6. Continue current antihypertensives. Latrice Holder MD
[2017-11-14 13:12] LABS: HEMOGLOBIN 9.2 g/dL (14.0-18.0); MEAN CELL VOLUME 90.2 fl (80.0-105.0); MEAN CORPUSCULAR HEMOGLOBIN 30.1 pg (25.0-35.0); MEAN CORPUSCULAR HGB CONC 33.3 g/dl (31.0-37.0); MEAN PLATELET VOLUME 9.7 fl (7.0-11.0); RBC 3.06 10^6/uL (3.5-6.1); RED CELL DISTRIBUTION WIDTH 13.4 % (11.5-14.5); WHITE BLOOD COUNT 12.1 10^3/ul (4.5-11.0)
[2017-11-14 13:25] LABS: CALCIUM 8.1 mg/dL (8.4-10.5)
--- NOTE | 2017-11-14 15:51 | PN ---
DATE: 11/14/2017 LOCATION: Patient is in room 363, bed 2. SUBJECTIVE: The patient has no complaints at this time. There have been no acute events overnight. PHYSICAL EXAMINATION: VITAL SIGNS: Temperature of 98.5, pulse rate 62, blood pressure 119/73, respiratory rate of 20 with an O2 saturation of 97% on room air. HEENT: Unremarkable. NECK: Supple with a full range of motion. No jugular venous distention present. LUNGS: Clear bilaterally. HEART: Regular rate and rhythm. No murmurs, rubs or gallops. ABDOMEN: Benign. EXTREMITIES: The right great toe is less cyanotic. NEUROLOGICAL: No focal motor deficits are present. LABORATORY DATA: Hemoglobin and hematocrit of 9.5 and 29.4, which is maintaining. Chemistry: BUN is 19, creatinine is 2.8. IMPRESSION: At this time, the patient underwent an arteriogram with angioplasty of the leg. DIAGNOSES: At this time are cellulitis with gangrene of the right great toe, peripheral vascular disease, renal failure and hypertension. We will continue to monitor patient's renal function. Ruddy Pedraza MD
--- NOTE | 2017-11-14 15:51 | PN ---
DATE: 11/14/2017 SUBJECTIVE: This is a 77-year-old male seen at bedside for ischemic ulcerations to his right foot. The patient is status post interventional vascular procedure, which he has successful balloon angioplasty and right iliac angioplasty with stent. He also has proximal right renal artery stenosis with no intervention. The patient states that his groin is swollen. His foot feels a little better although it still hurts. The patient's vital signs were noted. His temperature is 98.5, his pulse is 62, the blood pressure is 119/73, his respiratory rate is 20. LABORATORY DATA: Show white blood cell count of 8, the H and H are 9.5 and 29.4 and the platelets are 296. The patient's chemistry was noted to have a BUN and creatinine of 19 and 2.8 and the glucose is 93. The patient's lower extremity was examined. His right foot is slightly improved. I did not feel the pulse, although there is an on the foot where Doppler signals were taken. The patient's 4th and 5th toes on the right foot had ischemic cyanosis. They do appear a little better today. Instead of cyanosis, there is some petechiae in the toe, but no longer the purple cyanosis that he had pre-procedure. The hallux wound is stabilized. There is a small wound on the medial aspect of the nail plate, it does not involve the nail groove. It measures approximately 4 cm x 3 cm x 0.1 cm. It is relatively dry with no cellulitis and no signs of infection. ASSESSMENT: Ischemia, status post angioplasty with ischemic lesions to the right foot. PLAN OF TREATMENT: The hallux was dressed today with Xeroform and a dry sterile dressing and the toes were left open to air. We are going to order him a wedge shoe to help him walk on his heel so that his digital wounds can go on to heal. Sylwia Irvin DPM
--- NOTE | 2017-11-14 16:55 | PN ---
DATE: 11/14/2017 SUBJECTIVE: The patient is seen lying in bed. He is awake. He is alert. He reports the pain in his right foot is a little bit better. He denies any nausea or vomiting. He denies any shortness of breath. PHYSICAL EXAMINATION: GENERAL: Thinly built elderly male, lying in bed. VITAL SIGNS: Blood pressure 119/73, heart rate 62, respiratory rate 20, temperature 98.5. HEENT: Normocephalic, atraumatic, positive pallor. NECK: Supple, no JVD. LUNGS: Bilateral equal air entry, bilateral rhonchi, bilateral equal expansion. CARDIAC: S1 and S2, regular rate and rhythm, no murmur, no rub. ABDOMEN: Soft, nondistended, nontender, bowel sounds present. EXTREMITIES: No lower extremity edema, dressing of the right great toe, no palpable pulse. INTAKE AND OUTPUT: 300/1100. LABORATORY DATA: WBC is 12, hemoglobin is 9, hematocrit 27.6, platelets 230. Sodium 136, potassium 3.7, chloride 98, CO2 of 24, BUN 20, creatinine 3.4, glucose 106, calcium 8.1, AST 63, ALT 32. CURRENT MEDICATIONS: Mucomyst discontinued, aspirin, ceftaroline, D5 half-normal saline at 80, Drisdol, Lipitor, Lovenox, amlodipine, tramadol, Zofran, Lasix 40 mg given this morning. ASSESSMENT: 1. Acute kidney injury superimposed on chronic kidney disease stage 4. 2. Suspect contrast acute tubular necrosis. 3. Need to consider atheroembolic disease. 4. Peripheral artery disease, status post angiogram, status post right iliac stent, right superficial femoral artery angioplasty, postoperative day #1. PLAN: 1. Continue IV fluids. 2. Check urinalysis and urine eosinophils. 3. Monitor urine output closely. 4. Monitor daily labs. 5. Avoid nephrotoxins. 6. Check pulses in foot. Latrice Holder MD
--- NOTE | 2017-11-14 21:42 | PN ---
DATE: SUBJECTIVE: The patient is in bed, in no acute distress, nontoxic. PHYSICAL EXAMINATION: VITAL SIGNS: Temperature is 98, blood pressure is 119/70, respiratory rate of 18, heart rate of 66. HEENT: Unremarkable. NECK: Supple. LUNGS: Have decreased breath sounds. HEART: Normal S1 and S2. ABDOMEN: Soft, nontender, no organomegaly, no rebound, no guarding, no masses. LABORATORY DATA: Reveals a white count of 12,100, hemoglobin of 9, platelets of 230. BUN of 20, creatinine of 3.4. ASSESSMENT AND PLAN: This is a 77-year-old male with a right foot cellulitis, right hallux gangrene, peripheral vascular disease. Day #6 of Teflaro. MRI is negative for osteomyelitis. Dr. Ruddy Pedraza's note is reviewed. Upon discharge, maybe able to switch to p.o. antibiotics. Popeye Barber MD
[2017-11-15] MEDS: Dextrose 5%/0.45% NS 1,000 ML IV SCH ×3 (03:40→16:18)
--- NOTE | 2017-11-15 10:36 | PN ---
SUBJECTIVE: The patient was seen and examined at bedside on the remote telemetry henson. No acute events overnight. He remains afebrile and hemodynamically stable. The patient is doing well s/p IR revascularization of his right lower extremity secondary to severe underlying PVD and remains hospitalized for close monitoring of renal function given concern for contrast nephropathy in the setting of underlying CKD. This morning he feels well overall and offers no complaints. OBJECTIVE VITAL SIGNS: Temperature 98.2, pulse 60, blood pressure 103/59, respiratory rate 18, oxygen saturation 98% on room air. GENERAL: No apparent distress. HEENT: PERRL, EOMI. No scleral icterus. Mild conjunctival pallor is noted. NECK: No JVD. LUNGS: Clear to auscultation. CARDIOVASCULAR: Regular rate and rhythm. Normal S1 and S2. ABDOMEN: Normoactive bowel sounds. Soft, nontender, nondistended. EXTREMITIES: No edema. Right foot with dressing in place. DP/PT pulse palpable to the right lower extremity. NEUROLOGIC: Awake, alert and oriented x 3. No focal motor deficits. LABORATORY DATA: Morning labs are pending. ASSESSMENT: The patient is a 77 year old man with a past medical history of hypertension who was sent to the ED for evaluation of RADHA on CKD and management of chronic right foot first digit cellulitis with subsequent workup demonstrating significant underlying PVD who is now s/p IR revascularization. PLAN 1. PVD s/p IR revascularization. Input from Dr. Rolle appreciated. Continue Lipitor 20 mg p.o. daily and ASA 81 mg p.o. daily. 2. RADHA on CKD. Labs demonstrated an increase in the patient's creatinine after his IR procedure likely secondary to contrast nephropathy. Input from Dr. Holder and Dr. Mack is noted and greatly appreciated. Continue with IV fluids. Continue to monitor renal function daily. Continue with care as per the Nephrology team. 3. Cellulitis of the right first toe. MRI demonstrated no evidence of osteomyelitis. Input from Dr. Barber is noted and greatly appreciated. The patient remains on Ceftaroline 200 mg IV q. 12 hours (today is day #7 of antibiotics) and recommendations have been made for oral antibiotics consisting of Doxycycline 100 mg p.o. b.i.d. and Augmentin 875 mg p.o. b.i.d. for a total of 7 days. 4. Hypertension, blood pressure remained stable. Continue Amlodipine 5 mg p.o. daily. 5. Normocytic anemia. Morning labs are pending to reassess H/H. We will arrange for outpatient workup of the patient's anemia. 6. Prophylaxis. GI prophylaxis is not indicated as the patient is eating. Continue Lovenox for DVT prophylaxis. CODE STATUS: Full code. Tommie Pedraza MD [facility]
--- NOTE | 2017-11-15 11:10 | CP.PCM.PN ---
<Brigido Villa - Last Filed: 11/15/17 11:31> Subjective - Date & Time of Evaluation Date of Evaluation: 11/15/17 Time of Evaluation: 11:10 - Subjective Subjective: 77 year old male patient seen and evaluated at bedside for right foor ischemic ulceration great toe and ischemic changes to 4th and 5th digits. Patient hemodynamically stable and NAD. No acute events overnight. Patient reports continued pain to his right foot, however slightly improved s/p interventional vascular procedure. No other pedal complaints. Denies N/V/F/D/C/SOB. Objective - Vital Signs/Intake and Output Vital Signs (last 24 hours): Temp Pulse Resp BP Pulse Ox 98.2 F 61 98 H 103/59 L 97 11/14/17 16:00 11/14/17 16:00 11/14/17 16:00 11/14/17 16:00 11/14/17 06:00 Intake and Output: 11/15/17 11/15/17 06:59 18:59 Intake Total 500 Output Total 550 Balance -50 - Medications Medications: Current Medications Amlodipine Besylate (Norvasc) 5 mg PO DAILY [facility] Last Admin: 11/14/17 10:32 Dose: Not Given Aspirin (Aspirin Chewable) 81 mg PO DAILY [facility] Last Admin: 11/14/17 10:31 Dose: 81 mg Atorvastatin Calcium (Lipitor) 20 mg PO DIN [facility] Last Admin: 11/14/17 17:51 Dose: 20 mg Enoxaparin Sodium (Lovenox) 30 mg SC DAILY [facility] PRN Reason: Protocol Last Admin: 11/12/17 09:29 Dose: 30 mg Ergocalciferol (Drisdol 50,000 Intl Units Cap) 1 cap PO Q7D [facility] Last Admin: 11/11/17 14:43 Dose: 1 cap Dextrose/Sodium Chloride (Dextrose 5%/0.45% Ns 1000 Ml) 1,000 mls @ 80 mls/hr IV .[id number] [facility] Last Admin: 11/15/17 05:24 Dose: 80 mls/hr Ceftaroline Fosamil 200 mg/ (Sodium Chloride) 100 mls @ 100 mls/hr IVPB Q12 [facility] PRN Reason: Protocol Stop: 11/18/17 22:01 Last Admin: 11/14/17 22:30 Dose: 100 mls/hr Iron Sucrose 200 mg/ Sodium (Chloride) 110 mls @ 110 mls/hr IVPB DAILY [facility] Stop: 11/19/17 10:59 Ondansetron HCl (Zofran Inj) 4 mg IVP Q6H PRN PRN Reason: Nausea/Vomiting Last Admin: 11/11/17 16:54 Dose: 4 mg Tramadol HCl (Ultram) 50 mg PO Q6H [facility] Last Admin: 11/15/17 04:30 Dose: 50 mg - Labs Labs: 11/14/17 13:00 11/14/17 12:00 PT 10.2 SECONDS (9.4-12.5) 11/06/17 17:50 INR 0.90 (0.93-1.08) L 11/06/17 17:50 APTT 28.9 Seconds (25.1-36.5) 11/06/17 17:50 - Constitutional Appears: Well, Non-toxic, No Acute Distress - Extremities Exam Additional comments: RLE focused physical exam: Vasc: DP/PT pulses are nonpalpable however noted to have markings on foot where Doppler signals were taken, Cap refill time: > 3 sec to all digits, Temperature gradient cool to cool from proximal to distal no edema noted to the LE. Derm: Ischemic cyanosis noted to distal 4th and 5th digits, improving with cyanosis resolving. Wound noted to medial aspect of hallucal nail plate measuring approximately 4 x 3 x 0.1cm, no involvement with nail groove; periwound erythema noted. No calor, malodor, drainage, purlence, ascending cellulitis, or clinical signs of infection noted. Neuro: Protective sensation grossly intact Ortho: severe pain noted with light palpation to the right hallux and and 4th and 5th digit, moderate pain with palpation to the forefoot starting at the level of MPJ and distally. - Neurological Exam Neurological Exam: Alert, Awake, Oriented x3 Assessment and Plan - Assessment and Plan (Free Text) Assessment: 77 year old male with ischemia s/p angioplasty with ischemic lesions to right foot 1st/4th/5th digits Plan: Patient seen and evaluated Discussed with attending, Dr. Irvin Afebrile, WBC increasing 12.1 X-rays and MRI reviewed of the right foot -No acute pathology noted on the x-ray. Suspicious artifact on the medial aspect of the right hallux MRA of the bilateral LE reviewed S/p vascular intervention -Right SFA drug-eluting balloon angioplasty -Right external iliac a. angioplasty and stent placement -60-70% proximal right renal a. stenosis; borderline gradient was demonstrated and no intervention was performed Continue QD wound care - xeroform, DSD to hallux F/u forefoot wedge shoe Pain control - Tramadol 50mg PO q6 Podiatry will continue to follow patient while in house <Sylwia Irvin - Last Filed: 11/16/17 15:36> Objective - Vital Signs/Intake and Output Vital Signs (last 24 hours): Temp Pulse Resp BP Pulse Ox 98.5 F 62 20 140/78 99 11/16/17 06:00 11/16/17 09:46 11/16/17 06:00 11/16/17 09:46 11/16/17 06:00 Intake and Output: 11/16/17 11/16/17 06:59 18:59 Intake Total 240 Balance 240 - Medications Medications: Current Medications Amlodipine Besylate (Norvasc) 5 mg PO DAILY [facility] Last Admin: 11/16/17 09:46 Dose: 5 mg Amoxicillin/Clavulanate Potassium (Augmentin 875 Mg-125 Mg Tab) 1 tab PO Q12 [facility] PRN Reason: Protocol Stop: 11/18/17 22:01 Last Admin: 11/16/17 09:46 Dose: 1 tab Aspirin (Aspirin Chewable) 81 mg PO DAILY [facility] Last Admin: 11/16/17 09:46 Dose: 81 mg Atorvastatin Calcium (Lipitor) 20 mg PO DIN [facility] Last Admin: 11/15/17 16:18 Dose: 20 mg Doxycycline Hyclate (Doryx) 100 mg PO Q12 [facility] PRN Reason: Protocol Stop: 11/18/17 22:01 Last Admin: 11/16/17 09:45 Dose: 100 mg Enoxaparin Sodium (Lovenox) 30 mg SC DAILY [facility] PRN Reason: Protocol Last Admin: 11/16/17 09:47 Dose: 30 mg Ergocalciferol (Drisdol 50,000 Intl Units Cap) 1 cap PO Q7D [facility] Last Admin: 11/11/17 14:43 Dose: 1 cap Dextrose/Sodium Chloride (Dextrose 5%/0.45% Ns 1000 Ml) 1,000 mls @ 80 mls/hr IV .[id number] [facility] Last Admin: 11/16/17 04:18 Dose: 80 mls/hr Iron Sucrose 200 mg/ Sodium (Chloride) 110 mls @ 110 mls/hr IVPB DAILY [facility] Stop: 11/19/17 10:59 Last Admin: 11/16/17 09:47 Dose: 110 mls/hr Ondansetron HCl (Zofran Inj) 4 mg IVP Q6H PRN PRN Reason: Nausea/Vomiting Last Admin: 11/16/17 05:16 Dose: 4 mg Tramadol HCl (Ultram) 50 mg PO Q6H [facility] Last Admin: 11/16/17 09:46 Dose: 50 mg - Labs Labs: 11/16/17 07:00 11/16/17 07:00 PT 10.2 SECONDS (9.4-12.5) 11/06/17 17:50 INR 0.90 (0.93-1.08) L 11/06/17 17:50 APTT 28.9 Seconds (25.1-36.5) 11/06/17 17:50 Attending/Attestation - Attestation I have personally seen and examined this patient.: Yes I have fully participated in the care of the patient.: Yes I have reviewed all pertinent clinical information, including history, physical exam and plan: Yes
[2017-11-15] MEDS: Enoxaparin 30 mg Syringe SC SCH (11:43)
[2017-11-15 11:53] LABS: BASO # 0.04 K/mm3 (0.0-2.0); BASO % 0.3 % (0.0-3.0); EOS # 0.7 (0.0-0.7); EOS % 4.8 % (1.5-5.0); GRAN # 8.42 (1.4-6.5); GRAN % 62.6 % (50.0-68.0); LYMPH # 2.2 (1.2-3.4); LYMPH % 16.6 % (22.0-35.0); MEAN CELL VOLUME 91.7 fl (80.0-105.0); MEAN CORPUSCULAR HEMOGLOBIN 29.8 pg (25.0-35.0); MEAN CORPUSCULAR HGB CONC 32.5 g/dl (31.0-37.0); MEAN PLATELET VOLUME 10.1 fl (7.0-11.0); MONO # 2.1 (0.1-0.6); MONO % 15.7 % (1.0-6.0); RBC 3.02 10^6/uL (3.5-6.1); RED CELL DISTRIBUTION WIDTH 13.5 % (11.5-14.5); WHITE BLOOD COUNT 13.5 10^3/ul (4.5-11.0)
[2017-11-15 11:54] LABS: CALCIUM 8.1 mg/dL (8.4-10.5)
--- NOTE | 2017-11-15 13:06 | PN ---
DATE: 11/15/2017 SUBJECTIVE: The patient is seen lying in bed. He is awake, he is alert. He is complaining of pain in his foot. He did refuse to blood work this morning. PHYSICAL EXAMINATION GENERAL: Elderly male lying in bed. VITAL SIGNS: Blood pressure 103/59, heart rate 61, respiratory rate 18, temperature 98.2. HEENT: Normocephalic, atraumatic, positive pallor. NECK: Supple, no JVD. LUNGS: Bilateral equal air entry, bilateral equal expansion. CARDIAC: S1 and S2, regular rate and rhythm, no murmur, no rub. ABDOMEN: Soft, nondistended, nontender, bowel sounds present. EXTREMITIES: No lower extremity edema, dressing of the right great toe, no dorsalis pedis pulse palpable, positive PT pulse. INTAKE AND OUTPUT: 1117/1700. LABORATORY DATA: No new labs. MEDICATIONS: List reviewed. ASSESSMENT: 1. Acute kidney injury, superimposed on chronic kidney disease, stage IV. 2. Contrast acute tubular necrosis. 3. Hypertension. 4. Peripheral arterial disease, status post right iliac stent, right superficial femoral artery angioplasty. 5. Anemia of chronic kidney disease. PLAN: 1. The patient is counseled that he needs to have blood work done because he has acute kidney injury, we will need to see progression. 2. Continue IV fluids. 3. Avoid nephrotoxins. 4. Venofer 200 mg IV piggyback daily x5 doses. Latrice Holder MD
[2017-11-15 15:33] VITALS: RESP 20
--- NOTE | 2017-11-15 21:33 | PN ---
DATE: 11/15/2017 SUBJECTIVE: Patient is in bed, in room 363, bed 2. Patient has no fevers and chills, doing well. PHYSICAL EXAMINATION: VITAL SIGNS: Temperature is 98, blood pressure is 113/60, respiratory rate of 20, heart rate of 54. HEENT: Unremarkable. NECK: Supple. LUNGS: Have decreased breath sounds. HEART: Normal S1, S2. ABDOMEN: Soft, nontender. LABORATORY EXAMINATION: Reveals a white count of 13,500, hemoglobin of 9. Chemistries revel a BUN of 22, creatinine of 3.7. Urinalysis is noted. Dr. Tommie Pedraza's note is reviewed. ASSESSMENT AND PLAN: This is a 77-year-old male who was seen earlier this morning in room 363, bed 2, with right foot cellulitis and right hallux gangrene, peripheral vascular disease, day number of Teflaro. MRI is negative. May be able to complete with p.o. doxycycline and p.o. Augmentin upon discharge. We will discontinue the Teflaro and complete with doxycycline 100 mg p.o. and Augmentin 875 mg p.o., both b.i.d. x3 days. Popeye Barber MD
[2017-11-15] MEDS: Amoxicillin-Clav 875-125 mg Tab PO SCH (22:44)
[2017-11-16] MEDS: Dextrose 5%/0.45% NS 1,000 ML IV SCH ×2 (04:18→16:24)
[2017-11-16 07:55] LABS: BASO # 0.03 K/mm3 (0.0-2.0); BASO % 0.2 % (0.0-3.0); EOS # 0.4 (0.0-0.7); EOS % 2.8 % (1.5-5.0); GRAN # 9.72 (1.4-6.5); GRAN % 70.1 % (50.0-68.0); HEMOGLOBIN 8.7 g/dL (14.0-18.0); LYMPH # 1.5 (1.2-3.4); MEAN CELL VOLUME 91.1 fl (80.0-105.0); MEAN CORPUSCULAR HEMOGLOBIN 29.7 pg (25.0-35.0); MEAN CORPUSCULAR HGB CONC 32.6 g/dl (31.0-37.0); MEAN PLATELET VOLUME 10.4 fl (7.0-11.0); MONO # 2.2 (0.1-0.6); MONO % 15.9 % (1.0-6.0); RBC 2.93 10^6/uL (3.5-6.1); RED CELL DISTRIBUTION WIDTH 13.5 % (11.5-14.5); WHITE BLOOD COUNT 13.9 10^3/ul (4.5-11.0)
[2017-11-16 08:23] LABS: ALBUMIN 2.9 g/dL (3.0-4.8); CALCIUM 8.5 mg/dL (8.4-10.5)
[2017-11-16] MEDS: Amoxicillin-Clav 875-125 mg Tab PO SCH ×2 (09:46→22:32)
[2017-11-16] MEDS: Enoxaparin 30 mg Syringe SC SCH (09:47)
--- NOTE | 2017-11-16 11:11 | CP.PCM.PN ---
Subjective - Date & Time of Evaluation Date of Evaluation: 11/16/17 Time of Evaluation: 11:11 - Subjective Subjective: Podiatry Progress Note - Dr. Irvin 77 year old male patient seen and evaluated at bedside for right foot ischemic ulceration great toe and ischemic changes to 4th and 5th digits. Patient hemodynamically stable and NAD. No acute events overnight. Patient endorses that his pain to his digits is slowly starting to decrease, but they are still sensitive to touch. No other pedal complaints. Denies N/V/F/D/C/SOB. Objective - Vital Signs/Intake and Output Vital Signs (last 24 hours): Temp Pulse Resp BP Pulse Ox 98.5 F 62 20 140/78 99 11/16/17 06:00 11/16/17 09:46 11/16/17 06:00 11/16/17 09:46 11/16/17 06:00 Intake and Output: 11/16/17 11/16/17 06:59 18:59 Intake Total 240 Balance 240 - Medications Medications: Current Medications Amlodipine Besylate (Norvasc) 5 mg PO DAILY [facility] Last Admin: 11/16/17 09:46 Dose: 5 mg Amoxicillin/Clavulanate Potassium (Augmentin 875 Mg-125 Mg Tab) 1 tab PO Q12 [facility] PRN Reason: Protocol Stop: 11/18/17 22:01 Last Admin: 11/16/17 09:46 Dose: 1 tab Aspirin (Aspirin Chewable) 81 mg PO DAILY [facility] Last Admin: 11/16/17 09:46 Dose: 81 mg Atorvastatin Calcium (Lipitor) 20 mg PO DIN [facility] Last Admin: 11/15/17 16:18 Dose: 20 mg Doxycycline Hyclate (Doryx) 100 mg PO Q12 [facility] PRN Reason: Protocol Stop: 11/18/17 22:01 Last Admin: 11/16/17 09:45 Dose: 100 mg Enoxaparin Sodium (Lovenox) 30 mg SC DAILY [facility] PRN Reason: Protocol Last Admin: 11/16/17 09:47 Dose: 30 mg Ergocalciferol (Drisdol 50,000 Intl Units Cap) 1 cap PO Q7D [facility] Last Admin: 11/11/17 14:43 Dose: 1 cap Dextrose/Sodium Chloride (Dextrose 5%/0.45% Ns 1000 Ml) 1,000 mls @ 80 mls/hr IV .[id number] [facility] Last Admin: 11/16/17 04:18 Dose: 80 mls/hr Iron Sucrose 200 mg/ Sodium (Chloride) 110 mls @ 110 mls/hr IVPB DAILY [facility] Stop: 11/19/17 10:59 Last Admin: 11/16/17 09:47 Dose: 110 mls/hr Ondansetron HCl (Zofran Inj) 4 mg IVP Q6H PRN PRN Reason: Nausea/Vomiting Last Admin: 11/16/17 05:16 Dose: 4 mg Tramadol HCl (Ultram) 50 mg PO Q6H [facility] Last Admin: 11/16/17 09:46 Dose: 50 mg - Labs Labs: 11/16/17 07:00 11/16/17 07:00 PT 10.2 SECONDS (9.4-12.5) 11/06/17 17:50 INR 0.90 (0.93-1.08) L 11/06/17 17:50 APTT 28.9 Seconds (25.1-36.5) 11/06/17 17:50 - Constitutional Appears: Well, Non-toxic, No Acute Distress - Extremities Exam Additional comments: RLE focused physical exam: Vasc: DP pulse nonpalpable however noted to have markings on foot where Doppler signals were taken. PT pulse 1/4. Cap refill time: > 3 sec to all digits, Temperature gradient cool to cool from proximal to distal no edema noted to the LE. Derm: Ischemic cyanosis noted to distal 4th and 5th digits, improving. Wound noted to medial aspect of hallucal nail plate measuring approximately 4 x 3 x 0.1cm no involvement with nail groove; periwound erythema noted. No calor, malodor, drainage, purlence, ascending cellulitis, or clinical signs of infection noted. Neuro: Protective sensation grossly intact Ortho: Severe pain noted with light palpation to the right hallux and and 4th and 5th digit. No pain on palpation proximal to digits. - Neurological Exam Neurological Exam: Alert, Awake, Oriented x3 - Psychiatric Exam Psychiatric exam: Normal Affect, Normal Mood Assessment and Plan - Assessment and Plan (Free Text) Assessment: 77 year old male PMHx severe PVD s/p interventional radiology revascularization with ischemic lesions to right foot 1st/4th/5th digits Plan: Patient seen and evaluated Discussed with attending, Dr. Irvin Afebrile, WBC increasing 13.9 X-rays and MRI reviewed of the right foot -No acute pathology noted on the x-ray. Suspicious artifact on the medial aspect of the right hallux MRA of the bilateral LE reviewed S/p vascular intervention -Right SFA drug-eluting balloon angioplasty -Right external iliac a. angioplasty and stent placement -60-70% proximal right renal a. stenosis; borderline gradient was demonstrated and no intervention was performed Continue QD wound care - xeroform, DSD to hallux F/u forefoot wedge shoe Pain control - Tramadol 50mg PO q6 Podiatry will continue to follow patient while in house
--- NOTE | 2017-11-16 12:54 | CP.PCM.PN ---
Subjective - Date & Time of Evaluation Date of Evaluation: 11/16/17 Time of Evaluation: 08:00 - Subjective Subjective: Subjective: Patient seen and examined at bedside on the remote telemetry henson. No acute events. Doing well s/p IR revascularization of RLE. Antibiotics changed to oral Doxycycline and Augmentin. Renal function elevated from baseline s/p contrast but remains stable. Objective: VS: T 97.8, P 78, BP 110/66, RR 18, O2 98% RA Gen: NAD HEENT: PERRL, EOMI, no scleral icterus Neck: no JVD Lungs: CTA CV: RRR, normal S1, S2 Abd: benign Ext: RLE with dressing in place, cellulitis improving Neuro: no deficits Labs: CBC reviewed, CMP with Cr 3.5 Assessment: The patient is a 77 yo man with HTN and CKD who presented for evaluation of non- healing RLE 1st digit cellulitis and subsequently found to have severe PVD who is now s/p IR revascularization and remains hospitalized for close monitoring of renal function given concern for contrast nephropathy in the setting of CKD. Plan: 1. PVD s/p IR revascularization. Continue ASA and Lipitor. 2. RADHA on CKD, resolving. Labs previously demonstrated return of renal function to baseline however s/p his IR procedure the patient had a slight deterioration in renal function which is now again trending favorably. Continue with care as per the Nephrology team. Continue to monitor renal function daily, avoid nephrotoxins and renally dose medications. 3. Cellulitis of right 1st toe, resolving. Teflaro has been changed to oral Doxycycline and Augmentin to complete 3 more days of therapy. 4. HTN. BP remains controlled, continue Norvasc 5mg PO daily. 5. Normocytic anemia. Patient has been ordered Venofer. Will arrange for outpatient workup of anemia with GI eval. Code Status: Full Code Objective - Vital Signs/Intake and Output Vital Signs (last 24 hours): Temp Pulse Resp BP Pulse Ox 98.5 F 62 20 140/78 99 11/16/17 06:00 11/16/17 09:46 11/16/17 06:00 11/16/17 09:46 11/16/17 06:00 Intake and Output: 11/16/17 11/16/17 06:59 18:59 Intake Total 240 Balance 240 - Medications Medications: Current Medications Amlodipine Besylate (Norvasc) 5 mg PO DAILY [facility] Last Admin: 11/16/17 09:46 Dose: 5 mg Amoxicillin/Clavulanate Potassium (Augmentin 875 Mg-125 Mg Tab) 1 tab PO Q12 [facility] PRN Reason: Protocol Stop: 11/18/17 22:01 Last Admin: 11/16/17 09:46 Dose: 1 tab Aspirin (Aspirin Chewable) 81 mg PO DAILY [facility] Last Admin: 11/16/17 09:46 Dose: 81 mg Atorvastatin Calcium (Lipitor) 20 mg PO DIN [facility] Last Admin: 11/15/17 16:18 Dose: 20 mg Doxycycline Hyclate (Doryx) 100 mg PO Q12 [facility] PRN Reason: Protocol Stop: 11/18/17 22:01 Last Admin: 11/16/17 09:45 Dose: 100 mg Enoxaparin Sodium (Lovenox) 30 mg SC DAILY [facility] PRN Reason: Protocol Last Admin: 11/16/17 09:47 Dose: 30 mg Ergocalciferol (Drisdol 50,000 Intl Units Cap) 1 cap PO Q7D [facility] Last Admin: 11/11/17 14:43 Dose: 1 cap Dextrose/Sodium Chloride (Dextrose 5%/0.45% Ns 1000 Ml) 1,000 mls @ 80 mls/hr IV .[id number] [facility] Last Admin: 11/16/17 04:18 Dose: 80 mls/hr Iron Sucrose 200 mg/ Sodium (Chloride) 110 mls @ 110 mls/hr IVPB DAILY [facility] Stop: 11/19/17 10:59 Last Admin: 11/16/17 09:47 Dose: 110 mls/hr Ondansetron HCl (Zofran Inj) 4 mg IVP Q6H [facility] PRN Reason: Nausea/Vomiting Last Admin: 11/16/17 05:16 Dose: 4 mg Tramadol HCl (Ultram) 50 mg PO Q6H [facility] Last Admin: 11/16/17 09:46 Dose: 50 mg - Labs Labs: 11/16/17 07:00 11/16/17 07:00 PT 10.2 SECONDS (9.4-12.5) 11/06/17 17:50 INR 0.90 (0.93-1.08) L 11/06/17 17:50 APTT 28.9 Seconds (25.1-36.5) 11/06/17 17:50
[2017-11-16 16:32] VITALS: O2SAT 100
--- NOTE | 2017-11-16 19:08 | PN ---
DATE: 11/16/2017 SUBJECTIVE: Patient is in bed, in no acute distress, nontoxic. PHYSICAL EXAMINATION: VITAL SIGNS: Temperature is 98, blood pressure is 140/70, respiratory rate of 20, heart rate of 65. HEENT: Unremarkable. NECK: Supple. LUNGS: Have decreased breath sounds. HEART: Normal S1, S2. ABDOMEN: Soft, nontender. LABORATORY EXAMINATION: Reveals a white count of 13,900, hemoglobin of 8, platelets of 257. Coagulation is noted. Chemistries reveal a BUN of 21, creatinine of 3.5, and urinalysis is noted. Immunology is reviewed. Microbiology is reviewed. REVIEW OF ORDERS: Reveals the patient to be on p.o. Augmentin and p.o. doxycycline. Dr. Tommie Pedraza's progress note is noted today. ASSESSMENT AND PLAN: This is a 77-year-old male who was seen earlier today with a right foot cellulitis and a right helix gangrene and peripheral vascular disease and completed therapy with Teflaro. MRI is negative for osteomyelitis. Currently on p.o. Augmentin and p.o. doxycycline for two more days with renal function improving. We will follow with you. Popeye Barber MD
[2017-11-17] MEDS: Dextrose 5%/0.45% NS 1,000 ML IV SCH (06:25)
[2017-11-17 06:49] LABS: BASO # 0.03 K/mm3 (0.0-2.0); BASO % 0.2 % (0.0-3.0); EOS # 0.5 (0.0-0.7); EOS % 3.8 % (1.5-5.0); GRAN # 8.76 (1.4-6.5); GRAN % 64.3 % (50.0-68.0); HEMOGLOBIN 8.2 g/dL (14.0-18.0); LYMPH # 1.9 (1.2-3.4); LYMPH % 13.7 % (22.0-35.0); MEAN CELL VOLUME 91.3 fl (80.0-105.0); MEAN CORPUSCULAR HEMOGLOBIN 29.7 pg (25.0-35.0); MEAN CORPUSCULAR HGB CONC 32.5 g/dl (31.0-37.0); MEAN PLATELET VOLUME 10.3 fl (7.0-11.0); MONO # 2.5 (0.1-0.6); RBC 2.76 10^6/uL (3.5-6.1); RED CELL DISTRIBUTION WIDTH 13.7 % (11.5-14.5); WHITE BLOOD COUNT 13.6 10^3/ul (4.5-11.0)
[2017-11-17 09:12] VITALS: BP 130/70; PULSE 60; TEMP 97.6
--- NOTE | 2017-11-17 09:26 | PN ---
SUBJECTIVE: The patient was seen and examined at bedside on the remote telemetry henson. No acute events overnight. He remains afebrile and hemodynamically stable and continues to do well s/p IR revascularization of the RLE secondary to severe PVD. OBJECTIVE VITAL SIGNS: Temperature 98.2, pulse 56, blood pressure 111/66, respiratory rate 20, oxygen saturation 100% on room air. GENERAL: No apparent distress. HEENT: PERRL, EOMI. No scleral icterus. Conjunctival pallor is noted. NECK: No JVD. LUNGS: Clear to auscultation. CARDIOVASCULAR: Regular rate and rhythm. Normal S1 and S2. ABDOMEN: Normoactive bowel sounds. Soft, nontender, nondistended. EXTREMITIES: No edema. Right foot with dressing in place. Distal pulse is palpable in right lower extremity. NEUROLOGIC: Awake, alert and oriented x 3. No focal motor deficits. LABORATORY DATA: Morning labs are pending. ASSESSMENT: The patient is a 77 year old man with a past medical history of hypertension who was sent to the ED for evaluation of RADHA on CKD and management of chronic right foot first digit cellulitis with subsequent workup demonstrating significant underlying PVD who is now s/p IR revascularization. PLAN 1. PVD s/p IR revascularization. Input from Dr. Rolle appreciated. Continue Lipitor 20 mg p.o. daily and Aspirin 81 mg p.o. daily. 2. RADHA on CKD. Labs initially demonstrated a slight deterioration of the patient's renal function s/p IR procedure likely secondary to IV contrast however are now trending favorably with IV fluids. Input from Dr. Holder and Dr. Mack appreciated. Continue to monitor renal function daily. 3. Cellulitis of the right first toe. MRI negative for osteomyelitis. Antibiotics have been changed to oral Doxycycline and Augmentin as per Dr. Barber with recommendations to complete a 3 day course. 4. Hypertension. Blood pressure remains stable. Continue Amlodipine 5 mg p.o. daily. 5. Normocytic anemia. The patient is s/p Venofer infusion. Continue to monitor CBC daily. We will arrange for an outpatient workup of the patient's anemia. 6. Prophylaxis. GI prophylaxis is not indicated as the patient is eating. Continue Lovenox for DVT prophylaxis. 7. Disposition. The patient may possibly be discharged to [facility] today as per PT recommendations. CODE STATUS: Full code. Tommie Pedraza MD [facility] # [id number] [facility]
[2017-11-17] MEDS: Amoxicillin-Clav 875-125 mg Tab PO SCH (10:09)
[2017-11-17] MEDS: Enoxaparin 30 mg Syringe SC SCH (10:10)
[2017-11-17 10:19] LABS: ALB/GLOB RATIO 0.9 (1.1-1.8); CALCIUM 8.4 mg/dL (8.4-10.5)
--- NOTE | 2017-11-17 12:25 | CP.PCM.PN ---
Subjective - Date & Time of Evaluation Date of Evaluation: 11/17/17 Time of Evaluation: 12:25 - Subjective Subjective: Podiatry Progress Note - Dr. Irvin 77 year old male patient seen and evaluated at bedside for right foot ischemic ulceration great toe and ischemic changes to 4th and 5th digits. Patient hemodynamically stable and NAD. No acute events overnight. Patient reports continued improvement in pain to digits on right foot. No other pedal complaints. Patient is aware he is to follow up with Dr. Irvin in the wound care center this upon discharge. Denies N/V/F/D/C/SOB. Objective - Vital Signs/Intake and Output Vital Signs (last 24 hours): Temp Pulse Resp BP Pulse Ox 97.6 F 60 20 130/70 100 11/17/17 09:11 11/17/17 10:09 11/17/17 09:11 11/17/17 10:09 11/17/17 09:11 Intake and Output: 11/17/17 11/17/17 06:59 18:59 Intake Total 360 Output Total 600 Balance -240 - Medications Medications: Current Medications Amlodipine Besylate (Norvasc) 5 mg PO DAILY [facility] Last Admin: 11/17/17 10:09 Dose: 5 mg Amoxicillin/Clavulanate Potassium (Augmentin 875 Mg-125 Mg Tab) 1 tab PO Q12 [facility] PRN Reason: Protocol Stop: 11/18/17 22:01 Last Admin: 11/17/17 10:09 Dose: 1 tab Aspirin (Aspirin Chewable) 81 mg PO DAILY [facility] Last Admin: 11/17/17 10:09 Dose: 81 mg Atorvastatin Calcium (Lipitor) 20 mg PO DIN [facility] Last Admin: 11/16/17 16:28 Dose: 20 mg Darbepoetin Matt (Aranesp) 60 mcg SC ONCE ONE Stop: 11/18/17 05:01 Doxycycline Hyclate (Doryx) 100 mg PO Q12 [facility] PRN Reason: Protocol Stop: 11/18/17 22:01 Last Admin: 11/17/17 10:09 Dose: 100 mg Enoxaparin Sodium (Lovenox) 30 mg SC DAILY [facility] PRN Reason: Protocol Last Admin: 11/17/17 10:10 Dose: 30 mg Ergocalciferol (Drisdol 50,000 Intl Units Cap) 1 cap PO Q7D [facility] Last Admin: 11/11/17 14:43 Dose: 1 cap Dextrose/Sodium Chloride (Dextrose 5%/0.45% Ns 1000 Ml) 1,000 mls @ 80 mls/hr IV .[id number] [facility] Last Admin: 11/17/17 06:25 Dose: 80 mls/hr Iron Sucrose 200 mg/ Sodium (Chloride) 110 mls @ 110 mls/hr IVPB DAILY [facility] Stop: 11/19/17 10:59 Last Admin: 11/17/17 10:10 Dose: 110 mls/hr Ondansetron HCl (Zofran Inj) 4 mg IVP Q6H PRN PRN Reason: Nausea/Vomiting Last Admin: 11/16/17 05:16 Dose: 4 mg Tramadol HCl (Ultram) 50 mg PO Q6H [facility] Last Admin: 11/17/17 10:08 Dose: 50 mg - Labs Labs: 11/17/17 05:40 11/17/17 07:30 PT 10.2 SECONDS (9.4-12.5) 11/06/17 17:50 INR 0.90 (0.93-1.08) L 11/06/17 17:50 APTT 28.9 Seconds (25.1-36.5) 11/06/17 17:50 - Constitutional Appears: Well, Non-toxic, No Acute Distress - Extremities Exam Additional comments: RLE focused physical exam: Vasc: DP pulse nonpalpable however noted to have markings on foot where Doppler signals were taken. PT pulse palpable 2/4. Cap refill time: > 3 sec to all digits, Temperature gradient cool to cool from proximal to distal. No edema noted. Derm: Ischemic cyanosis noted to distal 4th and 5th digits, improving. Wound noted to medial aspect of hallucal nail plate measuring approximately 4 x 3 x 0.1cm no involvement with nail groove; periwound erythema noted. No calor, malodor, drainage, purlence, ascending cellulitis, or clinical signs of infection noted. Neuro: Protective sensation grossly intact Ortho: Severe pain noted with light palpation to the right hallux and and 4th and 5th digit. No pain on palpation proximal to digits. - Neurological Exam Neurological Exam: Alert, Awake, Oriented x3 - Psychiatric Exam Psychiatric exam: Normal Affect, Normal Mood Assessment and Plan - Assessment and Plan (Free Text) Assessment: 77 year old male PMHx severe PVD s/p interventional radiology revascularization with ischemic lesions to right foot 1st/4th/5th digits Plan: Patient seen and evaluated Discussed with attending, Dr. Irvin Afebrile, WBC 13.6 X-rays and MRI reviewed of the right foot -No acute pathology noted on the x-ray. Suspicious artifact on the medial aspect of the right hallux MRA of the bilateral LE reviewed S/p vascular intervention -Right SFA drug-eluting balloon angioplasty -Right external iliac a. angioplasty and stent placement -60-70% proximal right renal a. stenosis; borderline gradient was demonstrated and no intervention was performed Right hallux dressed wit RAOUL Mendoza. Patient to keep dressing clean/dry/ intact until wound care appointment this Pain control - Tramadol 50mg PO q6 Patient to follow up with Dr. Irvin in the wound care center this , @ 8:45 Podiatry will continue to follow patient while in house
[2017-11-17] MEDS ORDERED: Darbepoetin Alfa 60 mcg/ml Inj SC ONE (13:03)
--- NOTE | 2017-11-17 14:20 | PN ---
DATE: SUBJECTIVE: The patient is currently seen with some nausea and vomiting. He is receiving IV Venofer. The patient had a successful angioplasty and stent placement of his right lower extremity. He still continues to complain of pain in his right big toe and less pain in the remainder of the toes on the right foot. The patient was also noted to have right renal artery stenosis. No intervention was done for that. MEDICATIONS: Medication list reviewed. The patient is currently on aspirin, Augmentin, D5 half-normal saline 80 mL/hour, doxycycline, ergocalciferol, IV iron, Lipitor, Lovenox, Norvasc, Ultram, and Zofran p.r.n. OBJECTIVE: INTAKE/OUTPUT: Intake 480, output 1475. VITAL SIGNS: Blood pressure 130/70, temperature 97.6, respiratory rate is 20 with a pulse of 60. HEENT: Shows him to be normocephalic, atraumatic. Conjunctivae are pale. Sclerae are nonicteric. NECK: Supple. No neck vein distention. CHEST: Clear to auscultation and percussion. No rales, rhonchi, or wheezing. CARDIOVASCULAR: Shows a regular rate and rhythm with MR/TR/pulmonary hypertension. ABDOMEN: Soft. Bowel sounds are normal. No rebound, guarding, or masses. EXTREMITIES: Show a sock over his right big toe. He asked me to please not remove the sock. His toes are tender to touch, especially the right big toe. He did have purplish discoloration and cyanosis. No lower extremity edema. LABORATORY DATA AND IMAGING: CBC: White blood cell count today is 13.6, hemoglobin down to 8.2 with a platelet count of 257,000. Chemistry showed normal electrolytes. Potassium is now normal at 3.6. BUN is down to 18, creatinine remains elevated at 3.3. Glucose is 86. Calcium is 8.4. Liver enzymes are normal. ASSESSMENT: 1. Acute renal failure superimposed on chronic kidney disease stage 4 likely. The patient's BUN has returned to normal with IV fluid hydration. Creatinine remains in the mid 3 range. The patient is noted to have right-sided renal artery stenosis. Perhaps the patient had atheroembolic disease to the kidneys as well. Complement values were normal. Renal ultrasounds did show bilateral cortical thinning and increased echogenicity consistent with chronic medical renal disease. His renal artery Doppler studies were not diagnostic for renal artery stenosis. However, the angiogram did show right-sided renal artery stenosis, 60% 70% narrowing. A 24-hour urine done earlier during the hospitalization showed a creatinine clearance of 12 mL/min with 369 mg of protein. This is felt to possibly be an under collection of urine. 2. History of hypertension. Blood pressure remains controlled on present medical therapy. No change in current medication. We will not use ELOY inhibitors, angiotensin receptor blockers in light of his renal artery stenosis. 3. History of significant peripheral vascular disease as noted on his lower extremity angiogram. He is status post angioplasty of the right SFA and status post angioplasty and stent of the right external iliac artery. 4. History of secondary hyperparathyroidism with vitamin D deficiency. Patient is continuing on ergocalciferol. We will recheck his phosphorus levels. 5. History of anemia in part secondary to chronic kidney disease. Patient continues on iron therapy and patient will be dosed with Aranesp. PLAN: 1. Continue IV fluid hydration until his BUN and creatinine fall back to normal. He did have a slight bump in his creatinine likely secondary to contrast from the angioplasty. 2. Continue vitamin D therapy, continue renal diet. 3. Continue calcium channel gi therapy. 4. Continue oral antibiotic therapy as per Infectious Disease. Discussed with the patient in detail. He will likely need outpatient renal followup in light of the fact that his kidney clearances are 25% to 30% of normal. Mendez Mack MD
--- NOTE | 2017-11-17 16:39 | CP.PCM.PN ---
Subjective - Date & Time of Evaluation Date of Evaluation: 11/17/17 Time of Evaluation: 10:55 - Subjective Subjective: Comfortable, foot feels better, no fevers. Objective - Vital Signs/Intake and Output Vital Signs (last 24 hours): Temp Pulse Resp BP Pulse Ox 97.6 F 60 20 130/70 100 11/17/17 09:11 11/17/17 10:09 11/17/17 09:11 11/17/17 10:09 11/17/17 09:11 Intake and Output: 11/17/17 11/17/17 06:59 18:59 Intake Total 360 720 Output Total 600 Balance -240 720 - Medications Medications: Current Medications Amlodipine Besylate (Norvasc) 5 mg PO DAILY [facility] Last Admin: 11/17/17 10:09 Dose: 5 mg Amoxicillin/Clavulanate Potassium (Augmentin 875 Mg-125 Mg Tab) 1 tab PO Q12 [facility] PRN Reason: Protocol Stop: 11/18/17 22:01 Last Admin: 11/17/17 10:09 Dose: 1 tab Aspirin (Aspirin Chewable) 81 mg PO DAILY [facility] Last Admin: 11/17/17 10:09 Dose: 81 mg Atorvastatin Calcium (Lipitor) 20 mg PO DIN [facility] Last Admin: 11/16/17 16:28 Dose: 20 mg Doxycycline Hyclate (Doryx) 100 mg PO Q12 [facility] PRN Reason: Protocol Stop: 11/18/17 22:01 Last Admin: 11/17/17 10:09 Dose: 100 mg Enoxaparin Sodium (Lovenox) 30 mg SC DAILY [facility] PRN Reason: Protocol Last Admin: 11/17/17 10:10 Dose: 30 mg Ergocalciferol (Drisdol 50,000 Intl Units Cap) 1 cap PO Q7D [facility] Last Admin: 11/11/17 14:43 Dose: 1 cap Dextrose/Sodium Chloride (Dextrose 5%/0.45% Ns 1000 Ml) 1,000 mls @ 80 mls/hr IV .[id number] [facility] Last Admin: 11/17/17 06:25 Dose: 80 mls/hr Iron Sucrose 200 mg/ Sodium (Chloride) 110 mls @ 110 mls/hr IVPB DAILY [facility] Stop: 11/19/17 10:59 Last Admin: 11/17/17 10:10 Dose: 110 mls/hr Ondansetron HCl (Zofran Inj) 4 mg IVP Q6H PRN PRN Reason: Nausea/Vomiting Last Admin: 11/17/17 15:12 Dose: 4 mg Oseltamivir Phosphate (Tamiflu Susp) 30 mg PO 1800 [facility] PRN Reason: Protocol Stop: 11/21/17 18:01 Last Admin: 11/17/17 16:12 Dose: 30 mg Tramadol HCl (Ultram) 50 mg PO Q6H [facility] Last Admin: 11/17/17 16:31 Dose: 50 mg - Labs Labs: 11/17/17 05:40 11/17/17 07:30 PT 10.2 SECONDS (9.4-12.5) 11/06/17 17:50 INR 0.90 (0.93-1.08) L 11/06/17 17:50 APTT 28.9 Seconds (25.1-36.5) 11/06/17 17:50 - Constitutional Appears: Chronically Ill - Head Exam Head Exam: NORMAL INSPECTION - ENT Exam ENT Exam: Mucous Membranes Moist - Neck Exam Neck Exam: absent: Meningismus - Respiratory Exam Respiratory Exam: Decreased Breath Sounds - Cardiovascular Exam Cardiovascular Exam: +S1, +S2 - GI/Abdominal Exam GI & Abdominal Exam: Soft. 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
[2017-11-17] MEDS ORDERED: Oseltamivir 6 MG/ML PO SCH (18:00)
[2017-11-18] MEDS ORDERED: Darbepoetin Alfa 60 mcg/ml Inj SC ONE (05:00)
--- NOTE | 2017-11-19 06:40 | DS ---
ADMITTING DIAGNOSES: Cellulitis of the right first toe, RADHA on CKD stage IV. DISCHARGE DIAGNOSES: Cellulitis of the right first toe (resolved), severe PVD s/p IR revascularization, CKD stage IV. SECONDARY DIAGNOSES: Hypertension, normocytic anemia, COPD and tobacco dependence. CONSULTATIONS: Dr. Pollard (Podiatry), Dr. Barber (Infectious Disease), Dr. Mack ( Nephrology), Dr. Rolle (Interventional Radiology). IMAGING STUDIES: 1. Renal artery ultrasound demonstrated mildly echogenic renal parenchyma with no evidence of hydronephrosis or solid masses. 2. MRI of the right foot without contrast demonstrated no evidence of osteomyelitis. 3. MRA of the lower extremities and abdomen with and without contrast demonstrated bilateral stenoses to the iliac arteries and mid femoral arteries with occlusion of the right posterior tibial artery and left posterior tibial and peroneal arteries. DIAGNOSTIC STUDIES: TTE demonstrated normal LV size and function with mild mitral regurgitation, mild tricuspid regurgitation, and moderate pulmonary hypertension. PROCEDURES: Abdominal aortogram with placement of drug-eluting stent to the right SFA and right external iliac artery. HISTORY OF PRESENT ILLNESS: The patient is a 77 year old man with a past medical history of extensive tobacco dependence and hypertension who was sent to [facility] ED for evaluation of RADHA on CKD and continued management of chronic right foot first digit cellulitis. The patient was closely followed by Dr. Pollard of Podiatry on an outpatient basis for chronic right foot first digit cellulitis. Given multiple attempts to treat with antibiotic therapy and local wound care with no improvement, the patient was sent to Dr. Renaldo Rolle to evaluate for underlying PVD. The patient underwent ABIs which were grossly abnormal and as such was scheduled for an arteriogram. Prior to performing the planned arteriogram, the patient had preoperative labs which demonstrated a creatinine of 7 (baseline 2.5-3). He was then sent to the ED for further workup and management of RADHA on CKD stage IV and chronic right foot first digit cellulitis. Upon arrival to the ED, he was noted to be afebrile and hemodynamically stable. Laboratory studies confirmed RADHA on CKD with a creatinine of 6.8. The patient was started on IV fluids, IV antibiotics, and admitted to the remote telemetry [facility] for continued management. HOSPITAL COURSE: Upon admission to the remote telemetry [facility] the patient was evaluated by Dr. Mack of Nephrology. An extensive workup of the patient's underlying acute kidney injury and found that the etiology was likely secondary to prerenal azotemia secondary to poor p.o. intake in the setting of concurrent diuretic use consisting of Lisinopril and HCTZ for blood pressure control. The patient was started on IV fluids and sodium bicarbonate and over the next several days was noted to have a gradual return in his creatine towards the baseline. Regarding his chronic right foot first digit cellulitis, he was continued to be followed Dr. Pollard and the Podiatry Team during his hospital stay and underwent daily local wound care. An outpatient x-ray performed approximately 10 days prior to admission was negative for osteomyelitis and an MRI performed in the hospital demonstrated no evidence of osteomyelitis. He was followed since admission by Dr. Barber of Infectious Disease and was maintained on Ceftaroline 200 mg IV q. 12 hours. The patient progressed nicely during his hospital stay and when his renal function returned to his baseline, he was taken to the IR suite with Dr. Renaldo Rolle for attempted IR revascularization which was performed successfully. Given his CKD, there was certainly concern for contrast nephropathy and the patient was premedicated with Mucomyst. Post- procedure he was maintained on IV fluids and his renal function was closely monitored for contrast nephropathy. He did have an elevation in his creatinine from his baseline of 2.8 to 3.4 postprocedure but over the following 72 hours his renal function was trending favorably. On the day of discharge it was down to 3.3. His antimicrobials were adjusted by Dr. Barber to Doxycycline 100 mg p.o. b.i.d. and Augmentin 875 mg p.o. b.i.d. Due to his prolonged bedrest during his lengthy hospital stay, PT had recommended subacute rehab and by hospital day #10 he was accepted to [facility] for subacute rehab. After discussion with the Infectious Disease Team, the Nephrology team and the Podiatry team, the patient was cleared for discharge to subacute rehab on hospital day #10. CONDITION: Fair, improved. DISPOSITION: [facility]. DISCHARGE MEDICATIONS: Aspirin 81 mg p.o. daily, Lipitor 20 mg p.o. daily, Norvasc 5 mg p.o. daily, Doxycycline 100 mg p.o. b.i.d. (for an additional 3 days) and Augmentin 875 mg p.o. b.i.d. (for an additional 3 days). DISCHARGE INSTRUCTIONS: The patient was advised that if he develops any significant right lower extremity pain, claudication, paresthesias, anesthesia, cyanosis or coolness to touch to notify the staff at the rehab facility immediately. FOLLOWUP: The patient to follow up with his PMD within 1 week of discharge from subacute rehab. The patient to follow up with Dr. Pollard as scheduled. The patient to follow up with Dr. Mack as scheduled. The patient to follow up with Dr. Renaldo Rolle as scheduled. Tommie Pedraza MD MTDD
== END 2017-11-17 22:07 | DRG 674 ==
LOC: ED 16:53 → ERH 17:42 → 3RNO 22:24 → 2RSO 11-13 11:58 → 2RNO 11-13 14:44 → 3RNO 11-13 17:00
PROVIDERS: ADMIT Student in an Organized Health Care Education/Training Program; ATTEND Student in an Organized Health Care Education/Training Program
PROC: 047K34Z Dilation of Right Femoral Artery with Drug-eluting Intraluminal Device, Percutaneous Approach (ICD-10-PCS; principal; 2017-11-13)
PROC: 047H3DZ Dilation of Right External Iliac Artery with Intraluminal Device, Percutaneous Approach (ICD-10-PCS; 2017-11-13)
PROC: B41DYZZ Fluoroscopy of Aorta and Bilateral Lower Extremity Arteries using Other Contrast (ICD-10-PCS; 2017-11-13)
PROC: B416YZZ Fluoroscopy of Right Renal Artery using Other Contrast (ICD-10-PCS; 2017-11-13)
DX: N17.9 Acute kidney failure, unspecified (principal); I70.261 Atherosclerosis of native arteries of extremities with gangrene, right leg; L03.115 Cellulitis of right lower limb; L03.031 Cellulitis of right toe; E87.5 Hyperkalemia; L97.519 Non-pressure chronic ulcer of other part of right foot with unspecified severity; I70.1 Atherosclerosis of renal artery; N17.0 Acute kidney failure with tubular necrosis; N14.1 Nephropathy induced by other drugs, medicaments and biological substances; T50.8X5A Adverse effect of diagnostic agents, initial encounter; N18.4 Chronic kidney disease, stage 4 (severe); N25.81 Secondary hyperparathyroidism of renal origin; D63.1 Anemia in chronic kidney disease; I12.9 Hypertensive chronic kidney disease with stage 1 through stage 4 chronic kidney disease, or unspecified chronic kidney disease; I25.10 Atherosclerotic heart disease of native coronary artery without angina pectoris; F17.210 Nicotine dependence, cigarettes, uncomplicated; E55.9 Vitamin D deficiency, unspecified

== ENCOUNTER 2017-12-25 19:10 | Inpatient (IN) | payer MEDICARE ==
[2017-12-25 19:38] VITALS: BMI 19.2
--- NOTE | 2017-12-25 20:05 | ED PDOC ---
Arrival/HPI - General Chief Complaint: Lower Extremity Problem/Injury Time Seen by Provider: 12/25/17 19:29 Historian: Patient - History of Present Illness Narrative History of Present Illness (Text): 12/25/17 19:53 A 77 year old male presents to the emergency department complaining of right foot pain. Patient recently had a vascular procedure done to place in a shunt in his groin, with no improvement of circulation to foot. Patient has not been compliant with his medications due to difficulty ambulating on his own. Patient denies any fever, chills, nausea, vomiting, abdominal pain, chest pain, shortness of breath or any other complaints. PMD: Dr. Davenport Past Medical History - Provider Review Nursing Documentation Reviewed: Yes - Infectious Disease Hx of Infectious Diseases: None - Cardiac Hx Hypertension: Yes - Neurological Hx Paralysis: No - Hematological/Oncological Hx Blood Transfusions: No - Musculoskeletal/Rheumatological Hx Musculoskeletal Disorders: No - Psychiatric Hx Emotional Abuse: No Hx Physical Abuse: No Hx Substance Use: No - Past Surgical History Past Surgical History: No Previous - Anesthesia Hx Anesthesia Reactions: No Hx Malignant Hyperthermia: No - Suicidal Assessment Feels Threatened In Home Enviroment: No Family/Social History - Physician Review Nursing Documentation Reviewed: Yes Family/Social History: No Known Family HX Smoking Status: Former Smoker Hx Alcohol Use: No Hx Substance Use: No Hx Substance Use Treatment: No Allergies/Home Meds Allergies/Adverse Reactions: Allergies No Known Allergies Allergy (Verified 12/25/17 21:36) Home Medications: Home Meds Medication Instructions Recorded Confirmed Lisinopril/Hydrochlorothiazide 1 tab PO DAILY 11/05/17 12/25/17 [Lisinopril-Hctz 20-25 mg Tab] Oxycodone HCl/Acetaminophen 1 tab PO Q8H PRN 11/05/17 12/25/17 [Endocet 5-325 Tablet] Review of Systems - Physician Review All systems were reviewed & negative as marked: Yes - Review of Systems Constitutional: absent: Fevers, Night Sweats Respiratory: absent: SOB Cardiovascular: absent: Chest Pain Gastrointestinal: absent: Abdominal Pain, Nausea, Vomiting Musculoskeletal: Other (right foot pain) Physical Exam Vital Signs Reviewed: Yes Vital Signs Temp Pulse Resp BP Pulse Ox 12/25/17 22:04 98.1 F 97 H 18 176/114 H 98 12/25/17 21:21 97 H 144/111 H 03/29/18 20:00 196/128 H 12/25/17 19:53 98 F 96 H 18 196/125 H 98 Temperature: Afebrile Blood Pressure: Hypertensive Pulse: Tachycardic Respiratory Rate: Normal Appearance: Positive for: Non-Toxic, Comfortable, Cachectic Pain Distress: None Mental Status: Positive for: Alert and Oriented X 3 - Systems Exam Head: Present: Atraumatic, Normocephalic Pupils: Present: PERRL Extroacular Muscles: Present: EOMI Conjunctiva: Present: Normal Mouth: Present: Moist Mucous Membranes Neck: Present: Normal Range of Motion Respiratory/Chest: Present: Clear to Auscultation, Good Air Exchange. No: Respiratory Distress, Accessory Muscle Use Cardiovascular: Present: Regular Rate and Rhythm, Normal S1, S2. No: Murmurs Abdomen: Present: Normal Bowel Sounds. No: Tenderness, Distention, Peritoneal Signs Back: Present: Normal Inspection Upper Extremity: Present: Normal Inspection. No: Cyanosis, Edema Lower Extremity: Present: Normal Inspection, Other (Necrotic tissue noted to 2nd , 3rd and 5th toes of right foot). No: Edema Neurological: Present: GCS=15, CN II-XII Intact, Speech Normal Skin: Present: Warm, Dry, Normal Color. No: Rashes Psychiatric: Present: Alert, Oriented x 3, Normal Insight, Normal Concentration Medical Decision Making ED Course and Treatment: 12/25/17 19:53 Impression: A 77 year old male with right foot pain Plan: -- Right foot xray -- Chest xray -- EKG -- Labs -- Blood culture -- Reassess and disposition Progress Notes: 12/25/17 21:[address] Pedraza, states to admit patient to regular floor for retirement placement since patient is unable to care for himself. Request Dr. Irvin for consult. 12/25/17 22:16 EKG: Ordered, reviewed, and independently interpreted the EKG. Rate : 97 BPM Rhythm : NSR Interpretation : RBBB, Left anterior fasicular block, bifasicular block, voltage criteria for left ventricular hypertrophy. - Lab Interpretations Lab Results: 12/25/17 21:05 12/25/17 21:05 Lab Results 12/25/17 21:05: Sodium 137, Chloride 98, Potassium 3.2 L, Carbon Dioxide 23, Anion Gap 19, BUN 59 H, Creatinine 4.5 H, Est GFR ( Amer) 15, Est GFR ( Non-Af Amer) 13, Random Glucose 134 H, Calcium 9.7, Total Bilirubin 1.0, AST 17 D, ALT 9, Alkaline Phosphatase 142 H D, Total Protein 7.8, Albumin 3.8, Globulin 4.0, Albumin/Globulin Ratio 1.0 L 12/25/17 21:05: pO2 37, VBG pH 7.40, VBG pCO2 39.0 L, VBG HCO3 24.2, VBG Total CO2 25.4, VBG O2 Sat (Calc) 76.1 H, VBG Base Excess -0.5 L, VBG Potassium 3.2 L , Sodium 136.0, Chloride 102.0, Glucose 136 H, Lactate 2.0, FiO2 21.0, Venous Blood Potassium 3.2 L 12/25/17 21:05: PT 11.4, INR 1.00 12/25/17 21:05: WBC 15.7 H, RBC 2.92 L, Hgb 8.6 L, Hct 25.6 L, MCV 87.7 D, MCH 29.5, MCHC 33.6, RDW 14.3, Plt Count 289, MPV 9.6, Gran % 84.8 H, Lymph % (Auto ) 8.2 L, [place] % (Auto) 7.0 H, Eos % (Auto) 0.0 L, Baso % (Auto) 0.0, Gran # 13.32 H, Lymph # (Auto) 1.3, [place] # (Auto) 1.1 H, Eos # (Auto) 0.0, Baso # (Auto ) 0.00, ESR Pending I have reviewed the lab results: Yes - RAD Interpretation Radiology Orders: 12/25/17 19:48 FOOT RIGHT 3 VIEWS ROUTINE [RAD] Stat 12/25/17 19:54 CXR [CHEST ONE VIEW] [RAD] Stat - Medication Orders Current Medication Orders: Hydralazine HCl (Apresoline) 10 mg IVP STAT [facility] Last Admin: 12/25/17 21:04 Dose: 10 mg IVP Administration Document 12/25/17 21:04 (Rec: 12/25/17 21:[id number] Charges for Administration # of IVP Administrations 1 Hydralazine HCl (Apresoline) 10 mg IVP STAT [facility] Last Admin: 12/25/17 21:21 Dose: 10 mg IVP Administration Document 12/25/17 21:21 RG (Rec: 12/25/17 21:41 RG [id number]) Charges for Administration # of IVP Administrations 1 MAR Pulse and Blood Pressure Document 12/25/17 21:21 RG (Rec: 12/25/17 21:41 RG [id number]) Pulse Pulse Rate (60-90) 97 Blood Pressure Blood Pressure (100/60-150/90) 144/111 - PA / MANAGER ETHICS / Resident Statement MD/DO has reviewed & agrees with the documentation as recorded. Disposition/Present on Arrival - Present on Arrival Any Indicators Present on Arrival: No History of DVT/PE: No History of Uncontrolled Diabetes: No Urinary Catheter: No History of Decub. Ulcer: No History Surgical Site Infection Following: None - Disposition Have Diagnosis and Disposition been Completed?: Yes Diagnosis: Necrotic toes, Unable to ambulate, Uncontrolled hypertension, Requires daily assistance for activities of daily living (ADL) and comfort needs Disposition: HOSPITALIZED Disposition Time: 21:37 Patient Plan: Admission Patient Problems: Current Active Problems Problem Status Onset Necrotic toes Acute Unable to ambulate Acute Uncontrolled hypertension Acute Requires daily assistance for activities of daily living (ADL) and comfort needs Acute Condition: FAIR
[2017-12-25 21:09] LABS: VENOUS BLOOD GAS BASE EXCESS -0.5 mmol/L (0.0-2.0); VENOUS BLOOD GAS PO2 37 mm/Hg (30-55)
[2017-12-25 21:12] LABS: GRAN # 13.32 (1.4-6.5); GRAN % 84.8 % (50.0-68.0); HEMOGLOBIN 8.6 g/dL (14.0-18.0); LYMPH # 1.3 (1.2-3.4); LYMPH % 8.2 % (22.0-35.0); MEAN CELL VOLUME 87.7 fl (80.0-105.0); MEAN CORPUSCULAR HEMOGLOBIN 29.5 pg (25.0-35.0); MEAN CORPUSCULAR HGB CONC 33.6 g/dl (31.0-37.0); MEAN PLATELET VOLUME 9.6 fl (7.0-11.0); MONO # 1.1 (0.1-0.6); RBC 2.92 10^6/uL (3.5-6.1); RED CELL DISTRIBUTION WIDTH 14.3 % (11.5-14.5); WHITE BLOOD COUNT 15.7 10^3/ul (4.5-11.0)
[2017-12-25 21:17] LABS: PROTHROMBIN TIME 11.4 SECONDS (9.4-12.5)
[2017-12-25 21:18] LABS: ALBUMIN 3.8 g/dL (3.0-4.8); CALCIUM 9.7 mg/dL (8.4-10.5)
[2017-12-25] MEDS ORDERED: Morphine 4 mg/ml ISec IVP STA (22:51)
[2017-12-26 01:41] LABS: VENOUS BLOOD GAS BASE EXCESS -1.3 mmol/L (0.0-2.0); VENOUS BLOOD GAS PO2 68 mm/Hg (30-55); VENOUS BLOOD PH 7.42 (7.32-7.43)
--- NOTE | 2017-12-26 05:28 | CP.PCM.PN ---
Subjective - Date & Time of Evaluation Date of Evaluation: 12/26/17 Time of Evaluation: 05:20 - Subjective Subjective: Nurse calls and tells that his BP was 168/126-->157/99 @ about 2:30 am. Lisinopril 20 mg PO and Norvasc 10 mg PO were ordered. Patient seen(5:20AM) He is asleep. Medical record was reviewed. This 77 year old male was admitted with increasing right foot pain,hypokalemia. Has PMH of HTN, PVD, intermittent claudication, right great toe gangrene, non compliance. Objective - Vital Signs/Intake and Output Vital Signs (last 24 hours): Temp Pulse Resp BP Pulse Ox 97.8 F 86 18 157/99 H 97 12/26/17 00:01 12/26/17 01:42 12/26/17 00:01 12/26/17 01:42 12/25/17 22:46 Intake and Output: 12/25/17 12/26/17 18:59 06:59 Intake Total 180 Output Total 0 Balance 180 - Medications Medications: Current Medications Amlodipine Besylate (Norvasc) 5 mg PO DAILY [facility] Aspirin (Aspirin Chewable) 81 mg PO DAILY [facility] Atorvastatin Calcium (Lipitor) 20 mg PO DIN [facility] Hydralazine HCl (Apresoline) 10 mg IVP STAT [facility] Last Admin: 12/25/17 21:04 Dose: 10 mg Hydralazine HCl (Apresoline) 10 mg IVP STAT [facility] Last Admin: 12/25/17 21:21 Dose: 10 mg Lisinopril (Zestril) 10 mg PO DAILY [facility] - Labs Labs: PT 11.4 SECONDS (9.4-12.5) 12/25/17 21:05 INR 1.00 (0.93-1.08) 12/25/17 21:05 - Constitutional Appears: Well, No Acute Distress - Head Exam Head Exam: ATRAUMATIC, NORMAL INSPECTION, NORMOCEPHALIC Additional comments: Asleep. - Eye Exam Eye Exam: Normal appearance - ENT Exam ENT Exam: Normal External Ear Exam - Neck Exam Neck Exam: Normal Inspection - Respiratory Exam Respiratory Exam: NORMAL BREATHING PATTERN - Cardiovascular Exam Cardiovascular Exam: absent: JVD - GI/Abdominal Exam GI & Abdominal Exam: absent: Distended - Rectal Exam Rectal Exam: Deferred - Exam Additional comments: Deferred. - Extremities Exam Extremities Exam: Normal Inspection - Back Exam Back Exam: NORMAL INSPECTION - Neurological Exam Additional comments: Asleep. - Psychiatric Exam Additional comments: Asleep. - Skin Skin Exam: Normal Color Assessment and Plan - Assessment and Plan (Free Text) Assessment: Elevated blood pressure reading. PVD. Intermittent claudication. Right foot pain. Plan: Lisinopril 20 mg PO x1. Norvasc 10 mg PO x 1. At 6am ,BP was 113/78. Continue present management as per PMD.
--- NOTE | 2017-12-26 08:19 | RAD ---
PROCEDURE: CHEST RADIOGRAPH, 1 VIEW HISTORY: pre-op COMPARISON: 01/06/2013 FINDINGS: LUNGS: Clear. PLEURA: No pneumothorax or pleural fluid seen. CARDIOVASCULAR: No radiographic findings to suggest acute or significant cardiovascular disease. OSSEOUS STRUCTURES: No significant abnormalities. VISUALIZED UPPER ABDOMEN: Normal. OTHER FINDINGS: None. IMPRESSION: No active disease. No acute/significant interval changes.
--- NOTE | 2017-12-26 08:34 | RAD ---
PROCEDURE: Right Foot Radiographs. HISTORY: necrotic toes COMPARISON: None. FINDINGS: BONES: No evidence of osteomyelitis or acute pathologic process. Juxta-articular osteopenia. JOINTS: Degenerative changes interphalangeal joint distribution. SOFT TISSUES: Normal. OTHER FINDINGS: None. IMPRESSION: No acute findings related to/accounting for the clinical presentation.
[2017-12-26] MEDS: Sodium Chloride 0.45% 1,000 ML IV SCH (13:55)
[2017-12-26] MEDS: Morphine 4 mg/ml ISec IVP PRN (14:08)
[2017-12-26] MEDS: Piperacillin/Tazobact 2.25gm 2.25 GM/100 ML BAG IVPB SCH (17:14)
[2017-12-26] MEDS: Oxycodone/Acetaminophen 5/325 mg Tab PO PRN ×2 (17:15→22:07)
--- NOTE | 2017-12-26 20:12 | CON ---
DATE: HISTORY OF PRESENT ILLNESS: A 77-year-old male known to the [facility] wound care team, seen at bedside for consultation, evaluation and management of painful right foot secondary to acute to ischemic changes. The patient is also complaining pain in the left foot, however, is not as severe as the right foot. The patient had angioplasty done with stent placement on 11/13/[address] Rolle and upon discharge from the hospital never followed up at the wound center for his right toe ulceration. He is seen today with impending ischemia of the right foot with arterial ulcerations on the fourth and fifth digits as well as on the hallux. His left foot also presents with discoloration consistent with impending ischemia. The patient's medical history is significant for peripheral arterial disease, essential hypertension and osteoarthritis. PAST SURGICAL HISTORY: Includes angioplasty on 11/13/2017. ALLERGIES: THE PATIENT HAS NO KNOWN DRUG ALLERGIES. MEDICATIONS: All medications are noted in MAR. SOCIAL HISTORY The patient was a lifetime smoker, stopped approximately 2-3 months ago when he developed foot ulcerations. Denies illicit drug use. Denies alcohol abuse. FAMILY HISTORY: Unremarkable. Foot x-rays taken on 12/25/2017 revealed no radiographic evidence to suggest osteomyelitis or other acute pathological process occurring. There is no arterial Dopplers taken since his last admission in October. PHYSICAL EXAMINATION: VITAL SIGNS: Reveal a temperature of 99, pulse rate of 79, blood pressure of 113/78, respiratory rate of 18. EXTREMITIES: Nonpalpable pedal pulses noted bilaterally. Nonpalpable popliteal pulse noted bilaterally. Both lower extremity present with bluish purplish discoloration of the forefoot indicative of impending ischemia. Reverse temperature gradient noted bilaterally. Absent pedal hair growth noted bilaterally. There is noted to be no lower extremity edema. There are superficial arterial ulcerations located on the dorsal aspect of the right great toe as well as on the plantar aspects of the right fourth and fifth digits. The ulcerations measure approximately 0.5 x 0.5 x 0.2 cm. They present with a fibrotic necrotic gangrenous base. There is no purulence, there is no drainage, and the ulcers probe to tendon or bone and there is no signs of abscess formation. Laboratory findings reveal a white count of 15.7, hemoglobin of 8.6, hematocrit of 25.6, platelet count of 289 and his ESR is elevated at 123. There is no microbiology report noted. ASSESSMENT: Arterial ulcerations to the right first, fourth and fifth toes secondary to severe peripheral arterial disease. Clinical signs of impending ischemia present. PLAN The patient's foot was cleansed as it was filthy since he states he was not able to walk and has not showered in many weeks. The wounds were covered with Xeroform and a dry sterile dressing. We will order arterial Dopplers to ascertain lower extremity perfusion since last admission consult for Dr. Renaldo Rolle advised to review arterial Doppler results. Infectious disease consult recommended as his white count is 15.7. However, the etiology does not appear to be from his feet. The patient will be seen and followed daily. We will order foam multi-podus boots to offload both heels. We will await vascular input. Jason Pollard DPM ELL[facility]
--- NOTE | 2017-12-26 20:28 | CARD ---
APPROVED REPORT EKG Measurement Heart [id number] NE 146P [id number] <Conclusion> Normal sinus rhythm Right bundle branch block Left anterior fascicular block Bifascicular block Voltage criteria for left ventricular hypertrophy T wave abnormality, consider inferior ischemia Abnormal ECG
[2017-12-26] MEDS: Linezolid 600 mg in D5W 300 ml 600 MG/300 ML BAG IVPB SCH (22:06)
[2017-12-27] MEDS: Piperacillin/Tazobact 2.25gm 2.25 GM/100 ML BAG IVPB SCH ×5 (00:19→23:14)
[2017-12-27 08:02] LABS: BASO # 0.03 K/mm3 (0.0-2.0); BASO % 0.2 % (0.0-3.0); EOS # 0.7 (0.0-0.7); EOS % 5.7 % (1.5-5.0); GRAN # 8.47 (1.4-6.5); HEMOGLOBIN 7.4 g/dL (14.0-18.0); LYMPH # 1.8 (1.2-3.4); LYMPH % 14.5 % (22.0-35.0); MEAN CELL VOLUME 90.3 fl (80.0-105.0); MEAN CORPUSCULAR HEMOGLOBIN 28.8 pg (25.0-35.0); MEAN CORPUSCULAR HGB CONC 31.9 g/dl (31.0-37.0); MEAN PLATELET VOLUME 9.2 fl (7.0-11.0); MONO # 1.4 (0.1-0.6); MONO % 11.6 % (1.0-6.0); RBC 2.57 10^6/uL (3.5-6.1); RED CELL DISTRIBUTION WIDTH 14.5 % (11.5-14.5); WHITE BLOOD COUNT 12.5 10^3/ul (4.5-11.0)
[2017-12-27 08:11] LABS: ALB/GLOB RATIO 0.9 (1.1-1.8); ALBUMIN 2.8 g/dL (3.0-4.8); CALCIUM 8.1 mg/dL (8.4-10.5)
[2017-12-27] MEDS: Sodium Chloride 0.45% 1,000 ML IV SCH (08:13)
[2017-12-27] MEDS ORDERED: Potassium Chloride 20 mEq ER Tab PO ONE (08:23)
[2017-12-27] MEDS: Linezolid 600 mg in D5W 300 ml 600 MG/300 ML BAG IVPB SCH ×2 (10:00→21:15)
[2017-12-27] MEDS: Potassium Chloride 10 mEq ER Tab PO SCH (10:00)
--- NOTE | 2017-12-27 12:15 | PN ---
SUBJECTIVE: The patient was seen and examined at the bedside on the general medical henson. No acute events overnight. He remains afebrile and hemodynamically stable. This morning he complains of persistent pain to his right foot but states that it is adequately controlled with his current analgesic regimen and otherwise offers no complaints. OBJECTIVE: VITAL SIGNS: Temperature 97.4, pulse 72, blood pressure 91/61, respiratory rate 18, oxygen saturation 97% on room air. GENERAL: No apparent distress. HEENT: PERRL. EOMI. No scleral icterus. Conjunctival pallor is noted. NECK: No JVD. LUNGS: Clear to auscultation. CARDIOVASCULAR: Regular rate and rhythm. Normal S1 and S2. ABDOMEN: Normoactive bowel sounds. Soft, nontender and nondistended. EXTREMITIES: No edema. Lower extremities with cyanotic appearance and absent distal pulses. Ulcerations are noted to the right first digit with necrosis and surrounding erythema. NEUROLOGIC: Awake, alert and oriented x3. No focal motor deficits. LABORATORY DATA: WBC 12.5 with 68% neutrophils, hemoglobin 7.4, hematocrit 23, platelets 289. Sodium 133, potassium 3.2, chloride 99, bicarbonate 25, BUN 68, creatinine 5.1, glucose 90. Blood cultures with no growth to date. ASSESSMENT: The patient is a 77 year old man with a past medical history of hypertension, severe PVD s/p IR revascularization, CKD stage IV and anemia of chronic disease who was recently discharged from [facility] after admission for cellulitis of the right first toe who presented for increasing pain at the right first toe and was admitted for continued management of cellulitis and dry gangrene. PLAN: 1. Cellulitis with dry gangrene of the right first toe. Input from Dr. Pollard noted and greatly appreciated. Continue with local wound care as per the Podiatric team. Input from Dr. Perkins also greatly appreciated and the patient remains on Zosyn 2.25 g IV every 6 hours and Linezolid 600 mg IV every [address]. [address] Rolle also greatly appreciated and vascular imaging studies have been obtained to assess for patency of prior stents. We will await results. 2. Severe PVD s/p IR revascularization. As above input from Dr. Rolle noted and appreciated and repeat vascular studies are pending. Continue Lipitor 20 mg p.o. daily and aspirin 81 mg p.o. daily. 3. RADHA on CKD stage IV. Lab demonstrates slight increase in patient's renal function and this may be secondary to contrast nephropathy. Continue with IV fluid hydration consisting of half NS at 100 mL per hour. Continue to monitor renal function daily. Avoid nephrotoxins and renally dose medications. Continue to monitor strict I & O's. 4. Hypertension. Continue Amlodipine 5 mg p.o. daily. 5. Anemia of chronic disease. Baseline Hb 8-9. We will transfuse 1 unit of PRBCs in the setting of severe PVD in an attempt to augment perfusion of his lower extremities. 6. Prophylaxis. GI prophylaxis is not indicated as the patient is eating. Continue SCDs for DVT prophylaxis. CODE STATUS: Full code. Tommie Pedraza MD [facility]
--- NOTE | 2017-12-27 13:51 | PN ---
SUBJECTIVE: A 77-year-old male seen at bedside for continued evaluation and management of ischemic changes to the right foot with accompanying right foot pain. The patient states that his pain has decreased considerably in both lower extremities. The patient had angioplasty with placement on 11/[address] Rolle and upon discharge from the hospital, he never followed up for his right foot in ulcerations. OBJECTIVE VITAL SIGNS: The patient has temperature of 97.4, pulse rate of 72, blood pressure of 91/61, respiratory rate of 16. EXTREMITIES: Nonpalpable pedal pulses noted bilaterally. Nonpalpable popliteal pulses noted bilaterally. There is a more normal return to skin color as the purplish discoloration of impending forefoot ischemia has decreased considerably. However, there is still ischemic changes noted to the distal digits on the right foot. There are noted to be superficial ulcerations located on the dorsal aspect of the right hallux as well as on the plantar aspects of the distal right fourth and fifth digits. The ulcerations measure approximately 0.5 x 0.5 x 0.2 cm. The base of the ulcerations have fibrotic, , gangrenous bases. There is no drainage. There is no purulence. None of the wounds probe to tendon or bone. There is no abscess formation noted. Left foot presents with no ulcerations and temperature gradient is within normal limits at this time. DATA: Laboratory findings reveal a white count of 12.5 down from 15.7 yesterday. Hemoglobin of 7.4, hematocrit of 23.2, platelet count of 289,000 and ESR of 123. X-ray reports reveal no radiographic evidence of cortical destruction to suggest osteomyelitis. Duplex scanning and ultrasound testing was done yesterday, results are pending. ASSESSMENT: Arterial ulcerations to the right first, fourth and fifth toes secondary to severe peripheral arterial disease. PLAN: The patient was examined. His feet have returned to a more normal baseline today. However, he still has ischemic changes noted to the distal aspects of the digits on the right foot. The ulcers were cleansed with normal sterile saline and we will apply Xeroform gauze and a dry sterile dressing daily. We are waiting Duplex scanning results as well as ultrasound results. Spoke with Dr. Rolle yesterday and possibly spoke with Dr. Rolle yesterday. After much discussion, it was agreed that the patient would not benefit from any additional vascular intervention at this time and we will continue with local aggressive wound care. Spoke with Geovanan today about the need for followup once he is discharged; however, it appears the patient is unable to care for himself and would benefit going to a long-term facility. He states he is unable to walk and has trouble feeding and bathing himself. The patient will be seen and followed while in-house and we will await vascular testing results. However, there is no podiatric surgical intervention needed at this time. Jason Pollard DPM
[2017-12-27] MEDS: Oxycodone/Acetaminophen 5/325 mg Tab PO PRN (21:16)
[2017-12-27] MEDS: Morphine 4 mg/ml ISec IVP PRN (22:44)
--- NOTE | 2017-12-27 23:34 | US ---
PROCEDURE: Lower extremity CAMILA exam HISTORY: Peripheral vascular disease with right digital ischemia. Recent right iliac FLORICULTURIST/stent and rt SFA FLORICULTURIST. PHYSICIAN(S): Renaldo Rolle MD. FINDINGS: The right CAMILA is borderline normal, 0.89. The left CAMILA is moderately abnormal 0.67 The brachial systolic pressures are symmetric. The high thigh pressures and waveforms are relatively normal. There is a 40 mm gradient across the right knee. This is consistent with right popliteal, trifurcation and/or tibial disease. There is left SFA and tibial disease. IMPRESSION: 1. Borderline abnormal right CAMILA. Improved from previous study 2. Left SFA and tibial disease.
--- NOTE | 2017-12-27 23:38 | US ---
PROCEDURE: Duplex RLE arterial US HISTORY: PVD. 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 TECHNIQUE: FINDINGS: The right external iliac stent is patent. Normal velocities are noted in the right SFA. No significant stenoses were noted. IMPRESSION: Patent right external iliac stent and SFA.
[2017-12-28] MEDS: Sodium Chloride 0.45% 1,000 ML IV SCH ×2 (04:00→23:04)
[2017-12-28] MEDS: Piperacillin/Tazobact 2.25gm 2.25 GM/100 ML BAG IVPB SCH ×4 (05:37→23:05)
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
[2017-12-28 08:10] LABS: BASO # 0.02 K/mm3 (0.0-2.0); BASO % 0.1 % (0.0-3.0); EOS # 1.1 (0.0-0.7); EOS % 7.9 % (1.5-5.0); GRAN # 9.44 (1.4-6.5); GRAN % 69.3 % (50.0-68.0); HEMOGLOBIN 8.8 g/dL (14.0-18.0); LYMPH # 1.9 (1.2-3.4); LYMPH % 13.9 % (22.0-35.0); MEAN CELL VOLUME 88.6 fl (80.0-105.0); MEAN CORPUSCULAR HEMOGLOBIN 29.4 pg (25.0-35.0); MEAN CORPUSCULAR HGB CONC 33.2 g/dl (31.0-37.0); MEAN PLATELET VOLUME 9.9 fl (7.0-11.0); MONO # 1.2 (0.1-0.6); MONO % 8.8 % (1.0-6.0); RBC 2.99 10^6/uL (3.5-6.1); RED CELL DISTRIBUTION WIDTH 14.1 % (11.5-14.5); WHITE BLOOD COUNT 13.6 10^3/ul (4.5-11.0)
[2017-12-28] MEDS: Potassium Chloride 10 mEq ER Tab PO SCH (08:10)
[2017-12-28 08:32] LABS: ALB/GLOB RATIO 0.9 (1.1-1.8); ALBUMIN 2.7 g/dL (3.0-4.8); CALCIUM 8.1 mg/dL (8.4-10.5)
[2017-12-28] MEDS: Linezolid 600 mg in D5W 300 ml 600 MG/300 ML BAG IVPB SCH ×2 (10:32→21:32)
--- NOTE | 2017-12-28 13:53 | CP.PCM.PN ---
<Kentrell Hadley - Last Filed: 12/28/17 13:50> Subjective - Date & Time of Evaluation Date of Evaluation: 12/28/17 Time of Evaluation: 13:50 - Subjective Subjective: odiatry Progress Note - Dr. Irvin 77 year old male patient seen and evaluated at bedside for bilateral ischemic changes R foot > L foot. Patient is seen resting and enjoying breakfast during bedside visitation. Patient reports that he does not feel well. Reports constant pain to the right lower extremity while in bed and pain to touch to right and left foot. Reports no acute events overnight. Denies N/V/F/D/C/SOB. Objective - Vital Signs/Intake and Output Vital Signs (last 24 hours): Temp Pulse Resp BP Pulse Ox 97.5 F L 71 18 121/76 98 12/27/17 22:00 12/27/17 22:00 12/27/17 22:00 12/27/17 22:00 12/27/17 22:00 Intake and Output: 12/28/17 12/28/17 06:59 18:59 Intake Total 3125 Output Total 475 Balance 2650 - Medications Medications: Current Medications Amlodipine Besylate (Norvasc) 5 mg PO DAILY [facility] Last Admin: 12/28/17 10:32 Dose: 5 mg Aspirin (Aspirin Chewable) 81 mg PO DAILY [facility] Last Admin: 12/28/17 10:32 Dose: 81 mg Atorvastatin Calcium (Lipitor) 20 mg PO DIN [facility] Last Admin: 12/27/17 18:35 Dose: 20 mg Sodium Chloride (Sodium Chloride 0.45%) 1,000 mls @ 100 mls/hr IV .Q10H [facility] Last Admin: 12/28/17 04:00 Dose: 100 mls/hr Piperacillin Sod/Tazobactam Sod (Zosyn 2.25 Gm In 0.9% 100 Ml) 2.25 gm in 100 mls @ 100 mls/hr IVPB Q6 [facility] PRN Reason: Protocol Stop: 01/02/18 18:01 Last Admin: 12/28/17 12:58 Dose: 100 mls/hr Linezolid (Zyvox 600mg/300ml D5w) 600 mg in 300 mls @ 200 mls/hr IVPB Q12 [facility] PRN Reason: Protocol Stop: 04/06/18 22:01 Last Admin: 12/28/17 10:32 Dose: 200 mls/hr Morphine Sulfate (Morphine) 2 mg IVP Q6H PRN PRN Reason: Pain, severe (8-10) Last Admin: 12/27/17 22:44 Dose: 2 mg Oxycodone/Acetaminophen (Percocet 5/325 Mg Tab) 1 tab PO Q6H PRN PRN Reason: Pain, moderate (4-7) Stop: 12/29/17 13:55 Last Admin: 12/27/17 21:16 Dose: 1 tab Potassium Chloride (Klor-Con 10) 10 meq PO BRK [facility] Last Admin: 12/28/17 08:10 Dose: 10 meq - Labs Labs: 12/28/17 07:00 12/28/17 07:00 PT 11.4 SECONDS (9.4-12.5) 12/25/17 21:05 INR 1.00 (0.93-1.08) 12/25/17 21:05 - Constitutional Appears: Well, Non-toxic, No Acute Distress - Extremities Exam Extremities Exam: absent: Calf Tenderness Additional comments: RLE focused physical exam: Vasc: DP and PT nonpalpable. Cap refill time: > 3 sec to all digits, Temperature gradient cool to cool from proximal to distal. No edema noted. Derm: Ischemic cyanosis noted to right distal 1st, 4th, and 5th digits. Superficial ulceration noted to the dorsum of the right hallux and plantar aspect of digits 4th and 5th digits. The ulcerations measures approximately .5 x .5 x 0.1cm each; periwound erythema noted. Wound bas is mixture of fibrotic and gangrenous bases. No calor, malodor, drainage, purlence, ascending cellulitis, or clinical signs of infection noted. No probe to bone, no abscess. Left foot with no ulcerations with appearance of ischemic, blueish changes noted to distal digits 3,4,5 Neuro: Protective sensation grossly intact Ortho: Severe pain noted with light palpation to digits of the right foot > left foot. No calf pain or tenderness with palpation - Neurological Exam Neurological Exam: Alert, Awake, Oriented x3 Assessment and Plan - Assessment and Plan (Free Text) Assessment: 77 year old male patient with bilateral ischemic changes R foot > L foot and right foot superficial ulcerations. Plan: Patient examined and evaluated Discussed plan in detail with attending Dr. Irvin Leukocytosis WBC=13.6, afebrile Duplex RLE arterial US- Normal velocities are noted in the right SFA. No significant stenoses were noted IMPRESSION: Patent right external iliac stent and SFA R CAMILA IMPRESSION: 1. Borderline abnormal right CAMILA. Improved from previous study 2. Left SFA and tibial disease Vascular- no additional vascular intervention during this time No podiatric surgical intervention at this time Podiatry will provide aggressive local wound care Multipodus boots must be worn at all times while in bed. Patient will benefit to a long-term facility Podiatry will continue to follow in house <Sylwia Irvin - Last Filed: 12/29/17 13:06> Objective - Vital Signs/Intake and Output Vital Signs (last 24 hours): Temp Pulse Resp BP Pulse Ox 97.8 F 73 18 155/99 H 96 12/29/17 08:47 12/29/17 10:49 12/29/17 08:47 12/29/17 10:49 12/29/17 08:47 Intake and Output: 12/29/17 12/29/17 06:59 18:59 Intake Total 2640 Output Total 400 Balance 2240 - Medications Medications: Current Medications Amlodipine Besylate (Norvasc) 5 mg PO DAILY [facility] Last Admin: 12/29/17 10:49 Dose: 5 mg Aspirin (Aspirin Chewable) 81 mg PO DAILY [facility] Last Admin: 12/29/17 10:49 Dose: 81 mg Atorvastatin Calcium (Lipitor) 20 mg PO DIN [facility] Last Admin: 12/28/17 18:23 Dose: 20 mg Sodium Chloride (Sodium Chloride 0.45%) 1,000 mls @ 100 mls/hr IV .Q10H [facility] Last Admin: 12/28/17 23:04 Dose: 100 mls/hr Piperacillin Sod/Tazobactam Sod (Zosyn 2.25 Gm In 0.9% 100 Ml) 2.25 gm in 100 mls @ 100 mls/hr IVPB Q6 [facility] PRN Reason: Protocol Stop: 01/02/18 18:01 Last Admin: 12/29/17 05:43 Dose: 100 mls/hr Linezolid (Zyvox 600mg/300ml D5w) 600 mg in 300 mls @ 200 mls/hr IVPB Q12 [facility] PRN Reason: Protocol Stop: 01/02/18 22:01 Last Admin: 12/29/17 10:47 Dose: 200 mls/hr Morphine Sulfate (Morphine) 2 mg IVP Q6H PRN PRN Reason: Pain, severe (8-10) Oxycodone/Acetaminophen (Percocet 5/325 Mg Tab) 1 tab PO Q6H PRN PRN Reason: Pain, moderate (4-7) Stop: 12/29/17 13:55 Last Admin: 12/29/17 05:44 Dose: 1 tab Potassium Chloride (Klor-Con 10) 10 meq PO BRK [facility] Last Admin: 12/29/17 08:22 Dose: 10 meq - Labs Labs: 12/29/17 06:30 12/29/17 06:30 PT 11.4 SECONDS (9.4-12.5) 12/25/17 21:05 INR 1.00 (0.93-1.08) 12/25/17 21:05 Attending/Attestation - Attestation I have personally seen and examined this patient.: Yes I have fully participated in the care of the patient.: Yes I have reviewed all pertinent clinical information, including history, physical exam and plan: Yes
--- NOTE | 2017-12-28 14:08 | PN ---
DATE: 12/28/2017 SUBJECTIVE: The patient is in bed, in no acute distress, nontoxic on. PHYSICAL EXAMINATION: VITAL SIGNS: Temperature is 97, blood pressure is 120/70, respiratory rate of 18, heart rate of 71. HEENT: Unremarkable. NECK: Supple. LUNGS: Decreased breath sounds. HEART: Normal S1, S2. ABDOMEN: Soft, nontender. LABORATORY EXAMINATION: Reveals a white count of 13,600, hemoglobin of 8, and platelets of 296. Chemistries are noted. BUN of 63, creatinine of 4.9. Procalcitonin is 1. Microbiology reveals the blood cultures are no growth. Review of orders reveals the patient is on Zyvox and Zosyn. ASSESSMENT AND PLAN: This is a 77-year-old male who was seen early this morning in 576, bed 2, with peripheral vascular disease, hypertension, long-term tobacco use, kidney disease stage 4, admitted with tachycardia, leukocytosis, foot pain with #1 sepsis with a right foot gangrene, cellulitis, and end-stage peripheral vascular disease with poor pulses. Vascular Surgery, Podiatry, and Vascular involvement. On Zyvox and Zosyn. Awaiting for cultures and definitive plan. Popeye Barber MD
--- NOTE | 2017-12-28 16:50 | PN ---
SUBJECTIVE: The patient was seen and examined at bedside on the general medical henson. No acute events overnight. He is s/p transfusion of 1 unit of PRBC's with no complications noted and an appropriate response in hemoglobin. This morning he feels well and states his pain is adequately controlled with his current analgesic regimen and overall offers no complaints. OBJECTIVE: VITAL SIGNS: Temperature 97.5, pulse 71, blood pressure 121/76, respiratory rate 18, oxygen saturation 98% on room air. GENERAL: No apparent distress. HEENT: No icterus. Conjunctival pallor is noted. NECK: No JVD. LUNGS: Clear to auscultation. CARDIOVASCULAR: Regular rate and rhythm. Normal S1 and S2. ABDOMEN: Normoactive bowel sounds. Soft, nontender, nondistended. EXTREMITIES: No edema. Lower extremities with cyanotic/mottled appearance and ulcerations to the right first digit with necrosis and surrounding erythema. NEUROLOGIC: Awake, alert, and oriented x3. No focal motor deficits. LABORATORY DATA: WBC 13.6 with 69% neutrophils, hemoglobin 8.8, hematocrit 26, and platelets 296. Sodium 133, potassium 3.9, chloride 101, bicarbonate 22, BUN 63, creatinine 4.9 , glucose 83. ASSESSMENT: The patient is a 77 year old man with a past medical history of hypertension, severe PVD s/p IR revascularization, CKD stage IV and anemia of chronic disease who was recently discharged from [facility] after admission for cellulitis of the right first toe who presented for increasing pain at the right first toe and was admitted for continued management of cellulitis and dry gangrene. PLAN: 1. Cellulitis with dry gangrene of the right first toe. Input from Dr. Pollard noted and appreciated and no plans for surgical intervention at present. Continue with local wound care. Input from Dr. Barber noted, continue Linezolid 600 mg IV q. 12 hours and Zosyn 2.25 g IV q. [address] Rolle appreciated and vascular studies reviewed and demonstrate patent stents. As above there are no plans for acute, invasive intervention. 2. Severe PVD s/p IR revascularization. As above, vascular studies demonstrate patent stents. Continue with medical therapy consisting of Lipitor 20 mg p.o. daily and Aspirin 81 mg p.o. daily. 3. RADHA on CKD stage 4. Labs demonstrate favorably trending renal function towards baseline. Continue with gentle IV fluid hydration consisting of normal saline at 100 mL per hour. 4. Hypertension. Continue Amlodipine 5 mg p.o. daily. 5. Anemia of chronic disease s/p transfusion of 1 unit PRBCs. Hb at baseline of 8-9. Monitor CBC daily. 6. Prophylaxis. GI prophylaxis is not indicated as the patient is eating. Continue SCDs for DVT prophylaxis. CODE STATUS: Full code. Tommie Pedraza MD [facility]
[2017-12-28] MEDS: Oxycodone/Acetaminophen 5/325 mg Tab PO PRN (21:36)
[2017-12-29] MEDS: Piperacillin/Tazobact 2.25gm 2.25 GM/100 ML BAG IVPB SCH ×4 (05:43→23:28)
[2017-12-29] MEDS: Oxycodone/Acetaminophen 5/325 mg Tab PO PRN (05:44)
[2017-12-29 07:08] LABS: BASO # 0.03 K/mm3 (0.0-2.0); BASO % 0.2 % (0.0-3.0); EOS # 1.4 (0.0-0.7); EOS % 8.6 % (1.5-5.0); GRAN # 11.8 (1.4-6.5); GRAN % 72.1 % (50.0-68.0); HEMOGLOBIN 8.9 g/dL (14.0-18.0); LYMPH # 1.8 (1.2-3.4); LYMPH % 11.2 % (22.0-35.0); MEAN CELL VOLUME 88.5 fl (80.0-105.0); MEAN CORPUSCULAR HEMOGLOBIN 29.2 pg (25.0-35.0); MEAN PLATELET VOLUME 9.5 fl (7.0-11.0); MONO # 1.3 (0.1-0.6); MONO % 7.9 % (1.0-6.0); RBC 3.05 10^6/uL (3.5-6.1); RED CELL DISTRIBUTION WIDTH 14.6 % (11.5-14.5); WHITE BLOOD COUNT 16.4 10^3/ul (4.5-11.0)
[2017-12-29 07:21] LABS: ALB/GLOB RATIO 0.8 (1.1-1.8); ALBUMIN 2.7 g/dL (3.0-4.8)
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
[2017-12-29] MEDS: Potassium Chloride 10 mEq ER Tab PO SCH (08:22)
[2017-12-29] MEDS: Morphine 4 mg/ml ISec IVP PRN (08:26)
[2017-12-29] MEDS: Linezolid 600 mg in D5W 300 ml 600 MG/300 ML BAG IVPB SCH ×2 (10:47→21:10)
--- NOTE | 2017-12-29 13:02 | PN ---
SUBJECTIVE: The patient was seen and examined at bedside on the general medical henson. No acute events overnight. He remains afebrile and hemodynamically stable. The patient was evaluated by PT yesterday and participated with them to the best of his ability. This morning he reports persistent right foot discomfort but does endorse slight improvement and overall offers no complaints. PHYSICAL EXAMINATION VITAL SIGNS: Temperature is 97.7, pulse 71, blood pressure 150/80, respiratory rate 20, oxygen saturation 97% on room air. GENERAL: No apparent distress. HEENT: PERRL. EOMI. No scleral icterus. Conjunctival pallor is noted. NECK: No JVD. LUNGS: Clear to auscultation. CARDIOVASCULAR: Regular rate and rhythm. Normal S1 and S2. ABDOMEN: Normoactive bowel sounds. Soft, nontender, nondistended. EXTREMITIES: No edema. Lower extremities with cyanotic/mottled appearance and ulcerations to the right first digit with necrosis and surrounding erythema. NEUROLOGIC: Awake, alert, and oriented x3. No focal motor deficits. LABORATORY DATA: WBC 16 with 72% neutrophils, hemoglobin 8.9, hematocrit 27, platelets 317. Sodium 135, potassium 4.1, chloride 105, bicarb 19, BUN 56, creatinine 4.9, glucose 89. Blood cultures with no growth to date. ASSESSMENT: The patient is a 77 year old man with a past medical history of hypertension, severe PVD s/p IR revascularization, CKD stage IV and anemia of chronic disease who presented for evaluation of increasing pain at the right first toe and who was admitted for continued management of cellulitis and dry gangrene of the right first toe. PLAN: 1. Cellulitis with dry gangrene of the right first toe. Input from Dr. Pollard were noted and appreciated. No plans for surgery. Continue with local wound care. Input from Dr. Barber noted. Continue Linezolid 600 mg IV every 12 hours and Zosyn 2.25 g IV every 6 hours. 2. Severe PVD s/p IR revascularization. Vascular studies reviewed and demonstrated patent stents. Continue medical therapy consisting of Lipitor 20 mg p.o. daily and Aspirin 81 mg p.o. daily. 3. RADHA on CKD stage IV, resolved. Labs demonstrated renal function at the patient's baseline. Continue to encourage p.o. intake. We will continue with gentle IV fluid hydration for an additional 24 hours. 4. Hypertension. Continue Amlodipine 5 mg p.o. daily. 5. Anemia of chronic disease s/p transfusion of 1 unit PRBC. Hb at baseline of 8-9. Monitor CBC daily. 6. Prophylaxis. GI prophylaxis is not indicated as the patient is eating. Continue SCDs for DVT prophylaxis. CODE STATUS: Full code. Tommie Pedraza MD [facility]
--- NOTE | 2017-12-29 16:10 | CP.PCM.PN ---
<Brigido Villa - Last Filed: 12/29/17 16:05> Subjective - Date & Time of Evaluation Date of Evaluation: 12/29/17 Time of Evaluation: 16:05 - Subjective Subjective: Podiatry Progress Note - Dr. Irvin 77 year old male patient seen and evaluated at bedside for bilateral ischemic changes R foot > L foot. Patient sleeping at time of visit, states he feels "lousy" and has no appetite. Patient reports continued pain to both feet, R>L. Multipodus boots not present to bilateral LE, states they cause him too much discomfort and continues to refuse to wear them. Offers no other pedal complaints. Denies N/V/F/D/C/SOB/calf pain. Objective - Vital Signs/Intake and Output Vital Signs (last 24 hours): Temp Pulse Resp BP Pulse Ox 97.8 F 73 18 155/99 H 96 12/29/17 08:47 12/29/17 10:49 12/29/17 08:47 12/29/17 10:49 12/29/17 08:47 Intake and Output: 12/29/17 12/29/17 06:59 18:59 Intake Total 2640 240 Output Total 400 200 Balance 2240 40 - Medications Medications: Current Medications Amlodipine Besylate (Norvasc) 5 mg PO DAILY [facility] Last Admin: 12/29/17 10:49 Dose: 5 mg Aspirin (Aspirin Chewable) 81 mg PO DAILY [facility] Last Admin: 12/29/17 10:49 Dose: 81 mg Atorvastatin Calcium (Lipitor) 20 mg PO DIN [facility] Last Admin: 12/28/17 18:23 Dose: 20 mg Piperacillin Sod/Tazobactam Sod (Zosyn 2.25 Gm In 0.9% 100 Ml) 2.25 gm in 100 mls @ 100 mls/hr IVPB Q6 [facility] PRN Reason: Protocol Stop: 01/02/18 18:01 Last Admin: 12/29/17 05:43 Dose: 100 mls/hr Linezolid (Zyvox 600mg/300ml D5w) 600 mg in 300 mls @ 200 mls/hr IVPB Q12 [facility] PRN Reason: Protocol Stop: 01/02/18 22:01 Last Admin: 12/29/17 10:47 Dose: 200 mls/hr Morphine Sulfate (Morphine) 2 mg IVP Q6H PRN PRN Reason: Pain, severe (8-10) Potassium Chloride (Klor-Con 10) 10 meq PO BRK [facility] Last Admin: 12/29/17 08:22 Dose: 10 meq - Labs Labs: 12/29/17 06:30 12/29/17 06:30 PT 11.4 SECONDS (9.4-12.5) 12/25/17 21:05 INR 1.00 (0.93-1.08) 12/25/17 21:05 - Constitutional Appears: Well, Non-toxic, No Acute Distress - Extremities Exam Additional comments: RLE focused physical exam: Vasc: DP and PT nonpalpable. Cap refill time: > 3 sec to all digits, Temperature gradient cool to cool from proximal to distal. No edema noted. Derm: Ischemic cyanosis noted to right distal 1st, 4th, and 5th digits. Superficial ulceration noted to the dorsum of the right hallux and plantar aspect of digits 4th and 5th digits. The ulcerations measures approximately .5 x .5 x 0.1cm each; periwound erythema noted. Wound base is mixture of fibrotic and necrotic. No calor, malodor, drainage, purlence, ascending cellulitis, or clinical signs of infection noted. No probe to bone, no abscess. Left foot noted to have appearance of ischemic, blueish changes noted to distal digits 3,4 ,5 Neuro: Protective sensation grossly intact Ortho: Severe pain noted with light palpation to digits of the right foot > left foot. No calf pain or tenderness with palpation - Neurological Exam Neurological Exam: Alert, Awake, Oriented x3 - Psychiatric Exam Psychiatric exam: Normal Affect, Normal Mood Assessment and Plan - Assessment and Plan (Free Text) Assessment: 77 year old male patient with bilateral ischemic changes R foot > L foot and right foot superficial ulcerations. Plan: Patient examined and evaluated alongside attending, Dr. Irvin WBC increasing @ 16.4, afebrile Duplex RLE arterial US- Normal velocities are noted in the right SFA. No significant stenoses were noted IMPRESSION: Patent right external iliac stent and SFA R CAMILA IMPRESSION: 1. Borderline abnormal right CAMILA. Improved from previous study 2. Left SFA and tibial disease Vascular- no additional vascular intervention during this time No podiatric surgical intervention at this time Continue local wound care - hydrocolloid dressing to right hallux to remove eschar to medial hallux Multipodus boots must be worn at all times while in bed to prevent decubitus ulcer formation - patient continues to refuse AMA despite maximal education and encouragement Patient will benefit to a long-term facility Podiatry will continue to follow in house <Sylwia Irvin - Last Filed: 12/31/17 07:51> Objective - Vital Signs/Intake and Output Vital Signs (last 24 hours): Temp Pulse Resp BP Pulse Ox 97.6 F 65 18 153/88 H 97 12/30/17 22:00 12/30/17 22:00 12/30/17 22:00 12/30/17 22:00 12/30/17 22:00 Intake and Output: 12/31/17 12/31/17 06:59 18:59 Intake Total 760 Output Total 400 Balance 360 - Medications Medications: Current Medications Amlodipine Besylate (Norvasc) 10 mg PO DAILY [facility] Last Admin: 12/30/17 09:26 Dose: 10 mg Aspirin (Aspirin Chewable) 81 mg PO DAILY [facility] Last Admin: 12/30/17 09:19 Dose: 81 mg Atorvastatin Calcium (Lipitor) 20 mg PO DIN [facility] Last Admin: 12/30/17 17:15 Dose: 20 mg Piperacillin Sod/Tazobactam Sod (Zosyn 2.25 Gm In 0.9% 100 Ml) 2.25 gm in 100 mls @ 100 mls/hr IVPB Q6 [facility] PRN Reason: Protocol Stop: 01/02/18 18:01 Last Admin: 12/31/17 05:54 Dose: 100 mls/hr Linezolid (Zyvox 600mg/300ml D5w) 600 mg in 300 mls @ 200 mls/hr IVPB Q12 [facility] PRN Reason: Protocol Stop: 01/02/18 22:01 Last Admin: 12/30/17 21:18 Dose: 200 mls/hr Morphine Sulfate (Morphine) 2 mg IVP Q6H PRN PRN Reason: Pain, severe (8-10) Last Admin: 12/30/17 12:57 Dose: 2 mg Oxycodone/Acetaminophen (Percocet 5/325 Mg Tab) 1 tab PO Q4H PRN PRN Reason: Pain, moderate (4-7) Stop: 01/02/18 07:28 Last Admin: 12/30/17 17:16 Dose: 1 tab - Labs Labs: 12/31/17 06:40 12/31/17 06:40 PT 11.4 SECONDS (9.4-12.5) 12/25/17 21:05 INR 1.00 (0.93-1.08) 12/25/17 21:05 Attending/Attestation - Attestation I have personally seen and examined this patient.: Yes I have fully participated in the care of the patient.: Yes I have reviewed all pertinent clinical information, including history, physical exam and plan: Yes Notes (Text): 12/31/17 07:50 I have seen and evaluated this patient -- pt with historyof gangrene to the right foot with some denentia; pt had revascularization at last visit; the ischemic changes on the feet are present but less than previously; reorder CAMILA to assess recent revascularization
--- NOTE | 2017-12-29 16:19 | CP.PCM.PN ---
Subjective - Date & Time of Evaluation Date of Evaluation: 12/29/17 Time of Evaluation: 10:15 - Subjective Subjective: No fevers, not in distress. Objective - Vital Signs/Intake and Output Vital Signs (last 24 hours): Temp Pulse Resp BP Pulse Ox 97.8 F 73 18 155/99 H 96 12/29/17 08:47 12/29/17 10:49 12/29/17 08:47 12/29/17 10:49 12/29/17 08:47 Intake and Output: 12/29/17 12/29/17 06:59 18:59 Intake Total 2640 240 Output Total 400 200 Balance 2240 40 - Medications Medications: Current Medications Amlodipine Besylate (Norvasc) 5 mg PO DAILY [facility] Last Admin: 12/29/17 10:49 Dose: 5 mg Aspirin (Aspirin Chewable) 81 mg PO DAILY [facility] Last Admin: 12/29/17 10:49 Dose: 81 mg Atorvastatin Calcium (Lipitor) 20 mg PO DIN [facility] Last Admin: 12/28/17 18:23 Dose: 20 mg Piperacillin Sod/Tazobactam Sod (Zosyn 2.25 Gm In 0.9% 100 Ml) 2.25 gm in 100 mls @ 100 mls/hr IVPB Q6 [facility] PRN Reason: Protocol Stop: 01/02/18 18:01 Last Admin: 12/29/17 05:43 Dose: 100 mls/hr Linezolid (Zyvox 600mg/300ml D5w) 600 mg in 300 mls @ 200 mls/hr IVPB Q12 [facility] PRN Reason: Protocol Stop: 01/02/18 22:01 Last Admin: 12/29/17 10:47 Dose: 200 mls/hr Morphine Sulfate (Morphine) 2 mg IVP Q6H PRN PRN Reason: Pain, severe (8-10) Potassium Chloride (Klor-Con 10) 10 meq PO BRK [facility] Last Admin: 12/29/17 08:22 Dose: 10 meq - Labs Labs: 12/29/17 06:30 12/29/17 06:30 PT 11.4 SECONDS (9.4-12.5) 12/25/17 21:05 INR 1.00 (0.93-1.08) 12/25/17 21:05 - Constitutional Appears: Chronically Ill - Neck Exam Neck Exam: absent: Meningismus - Respiratory Exam Respiratory Exam: Decreased Breath Sounds - Cardiovascular Exam Cardiovascular Exam: +S1, +S2 - GI/Abdominal Exam GI & Abdominal Exam: Soft. absent: Tenderness - Extremities Exam Additional comments: both feet with dressings in place Assessment and Plan - Assessment and Plan (Free Text) Plan: Assessment peripheral vascular disease with necrotic toes and ulceration bilaterally history of Right foot cellulitis with right hallux gangrene Peripheral vascular disease HTN Plancycline continue Zyvox and Zosyn pending further plans of Podiatry will monitor clinically
[2017-12-29] MEDS: Morphine 2 mg/2 mL syringe IVP PRN (17:12)
[2017-12-30] MEDS: Morphine 2 mg/2 mL syringe IVP PRN ×3 (00:42→12:57)
[2017-12-30] MEDS: Piperacillin/Tazobact 2.25gm 2.25 GM/100 ML BAG IVPB SCH ×5 (05:36→23:37)
[2017-12-30 07:26] LABS: BASO # 0.01 K/mm3 (0.0-2.0); BASO % 0.1 % (0.0-3.0); EOS # 1.7 (0.0-0.7); GRAN # 13.58 (1.4-6.5); GRAN % 73.9 % (50.0-68.0); HEMOGLOBIN 9.1 g/dL (14.0-18.0); LYMPH # 1.6 (1.2-3.4); LYMPH % 8.4 % (22.0-35.0); MEAN CELL VOLUME 88.8 fl (80.0-105.0); MEAN CORPUSCULAR HEMOGLOBIN 29.1 pg (25.0-35.0); MEAN CORPUSCULAR HGB CONC 32.7 g/dl (31.0-37.0); MEAN PLATELET VOLUME 9.4 fl (7.0-11.0); MONO # 1.6 (0.1-0.6); MONO % 8.6 % (1.0-6.0); RBC 3.13 10^6/uL (3.5-6.1); RED CELL DISTRIBUTION WIDTH 14.7 % (11.5-14.5); WHITE BLOOD COUNT 18.4 10^3/ul (4.5-11.0)
[2017-12-30 07:35] LABS: ALB/GLOB RATIO 0.9 (1.1-1.8); ALBUMIN 2.8 g/dL (3.0-4.8); CALCIUM 8.4 mg/dL (8.4-10.5)
[2017-12-30] MEDS: Potassium Chloride 10 mEq ER Tab PO SCH (08:04)
[2017-12-30] MEDS: Oxycodone/Acetaminophen 5/325 mg Tab PO PRN ×2 (09:24→17:16)
[2017-12-30] MEDS: Linezolid 600 mg in D5W 300 ml 600 MG/300 ML BAG IVPB SCH ×2 (09:27→21:18)
--- NOTE | 2017-12-30 11:12 | PN ---
SUBJECTIVE: The patient was seen and examined at bedside on the general medical henson. No acute events overnight. He remains afebrile and hemodynamically stable. This morning he offers no complaints and reports that his pain is adequately controlled with his current analgesic regimen. He is pending placement to subacute rehab. OBJECTIVE VITAL SIGNS: Temperature 97.6, pulse 74, blood pressure 167/99, respiratory rate 18, oxygen saturation 95% on room air. GENERAL: No apparent distress. HEENT: PERRL. EOMI. No scleral icterus. Conjunctival pallor is noted. NECK: No JVD. LUNGS: Clear to auscultation. CARDIOVASCULAR: Regular rate and rhythm. Normal S1 and S2. ABDOMEN: Normoactive bowel sounds. Soft, nontender, and nondistended. EXTREMITIES: No edema. Lower extremities with cyanotic/mottled appearance with ulcerations to the right first digit with necrosis and surrounding erythema. NEUROLOGIC: Awake, alert and oriented x3. No focal or motor deficits. LABORATORY DATA: WBC 18.4 with 74% neutrophils, hemoglobin 9, hematocrit 28, platelets 314. Sodium 138, potassium 4.3, chloride 107, bicarbonate 21, BUN 49, creatinine 4.5 and glucose 87. Blood cultures with no growth to date. ASSESSMENT: The patient is a 77 year old man with a past medical history of hypertension, severe PVD s/p IR revascularization, CKD stage IV and anemia of chronic disease who presented for evaluation of increasing pain at the right first toe and was admitted for management of cellulitis and dry gangrene of the right first toe. PLAN 1. Cellulitis with dry gangrene of the right first toe. Input from Dr. Irvin appreciated. No plans for surgery. Continue with local wound care. Input from Dr. Perkins appreciated. Continue with current antimicrobials. 2. Severe PVD s/p IR revascularization. Vascular studies reviewed and demonstrated patent stents. Continue medical therapy consisting of Lipitor 20 mg p.o. daily and Aspirin 81 mg p.o. daily. 3. RADHA on CKD stage IV, resolved. Renal function at the patient's baseline. Continue to monitor CMP daily. 4. Hypertension. BP uncontrolled, will increase Amlodipine to 10 mg p.o. daily. 5. Anemia of chronic disease. Hb at baseline of 8-9. Continue to monitor CBC daily. 6. Prophylaxis. GI prophylaxis is not indicated as the patient is eating. Continue SCDs for DVT prophylaxis. CODE STATUS: Full code. Tommie Pedraza MD [facility]
--- NOTE | 2017-12-30 12:49 | CP.PCM.PN ---
Subjective - Date & Time of Evaluation Date of Evaluation: 12/30/17 Time of Evaluation: 11:45 - Subjective Subjective: No fevers, not in distress, pain in his feet controlled with medications. Objective - Vital Signs/Intake and Output Vital Signs (last 24 hours): Temp Pulse Resp BP Pulse Ox 97.6 F 74 18 140/80 95 12/30/17 07:58 12/30/17 07:58 12/30/17 07:58 12/30/17 09:26 12/30/17 07:58 Intake and Output: 12/30/17 12/30/17 06:59 18:59 Intake Total 480 Output Total 750 Balance -270 - Medications Medications: Current Medications Amlodipine Besylate (Norvasc) 10 mg PO DAILY [facility] Last Admin: 12/30/17 09:26 Dose: 10 mg Aspirin (Aspirin Chewable) 81 mg PO DAILY [facility] Last Admin: 12/30/17 09:19 Dose: 81 mg Atorvastatin Calcium (Lipitor) 20 mg PO DIN [facility] Last Admin: 12/29/17 17:08 Dose: 20 mg Piperacillin Sod/Tazobactam Sod (Zosyn 2.25 Gm In 0.9% 100 Ml) 2.25 gm in 100 mls @ 100 mls/hr IVPB Q6 [facility] PRN Reason: Protocol Stop: 01/02/18 18:01 Last Admin: 12/30/17 05:36 Dose: 100 mls/hr Linezolid (Zyvox 600mg/300ml D5w) 600 mg in 300 mls @ 200 mls/hr IVPB Q12 [facility] PRN Reason: Protocol Stop: 01/02/18 22:01 Last Admin: 12/30/17 09:27 Dose: 200 mls/hr Morphine Sulfate (Morphine) 2 mg IVP Q6H PRN PRN Reason: Pain, severe (8-10) Last Admin: 12/30/17 06:27 Dose: 2 mg Oxycodone/Acetaminophen (Percocet 5/325 Mg Tab) 1 tab PO Q4H PRN PRN Reason: Pain, moderate (4-7) Stop: 01/02/18 07:28 Last Admin: 12/30/17 09:24 Dose: 1 tab Potassium Chloride (Klor-Con 10) 10 meq PO BRK [facility] Last Admin: 12/30/17 08:04 Dose: 10 meq - Labs Labs: 12/30/17 07:22 12/30/17 07:22 PT 11.4 SECONDS (9.4-12.5) 12/25/17 21:05 INR 1.00 (0.93-1.08) 12/25/17 21:05 - Constitutional Appears: Chronically Ill - Head Exam Head Exam: NORMAL INSPECTION - ENT Exam ENT Exam: Mucous Membranes Moist - Neck Exam Neck Exam: absent: Meningismus - Respiratory Exam Respiratory Exam: Decreased Breath Sounds - Cardiovascular Exam Cardiovascular Exam: +S1, +S2 - GI/Abdominal Exam GI & Abdominal Exam: Soft. absent: Tenderness - Extremities Exam Additional comments: both feet with dressings in place Assessment and Plan - Assessment and Plan (Free Text) Plan: Assessment peripheral vascular disease with necrotic toes and ulceration bilaterally, S/P revascularization history of Right foot cellulitis with right hallux gangrene Peripheral vascular disease HTN Plancycline continue Zyvox and Zosyn (day 5); as per Podiatry, no plans for surgery; would recommend 10-14 days of antibiotics will continue to monitor clinically
--- NOTE | 2017-12-30 16:01 | CP.PCM.PN ---
<Brigido Villa - Last Filed: 12/30/17 15:56> Subjective - Date & Time of Evaluation Date of Evaluation: 12/30/17 Time of Evaluation: 15:56 - Subjective Subjective: Podiatry Progress Note - Dr. Irvin/Atul 77 year old male patient seen and evaluated at bedside for bilateral ischemic changes R foot > L foot. Patient more awake and alert today, NAD. States appetite is improving. Multipodus boot present to LLE, absent to RLE. Reports continued pain to both feet, R>L. Offers no other complaints. Denies N/V/F/D/C/ SOB/calf pain. Objective - Vital Signs/Intake and Output Vital Signs (last 24 hours): Temp Pulse Resp BP Pulse Ox 97.6 F 74 18 140/80 95 12/30/17 07:58 12/30/17 07:58 12/30/17 07:58 12/30/17 09:26 12/30/17 07:58 Intake and Output: 12/30/17 12/30/17 06:59 18:59 Intake Total 480 120 Output Total 750 150 Balance -270 -30 - Medications Medications: Current Medications Amlodipine Besylate (Norvasc) 10 mg PO DAILY [facility] Last Admin: 12/30/17 09:26 Dose: 10 mg Aspirin (Aspirin Chewable) 81 mg PO DAILY [facility] Last Admin: 12/30/17 09:19 Dose: 81 mg Atorvastatin Calcium (Lipitor) 20 mg PO DIN [facility] Last Admin: 12/29/17 17:08 Dose: 20 mg Piperacillin Sod/Tazobactam Sod (Zosyn 2.25 Gm In 0.9% 100 Ml) 2.25 gm in 100 mls @ 100 mls/hr IVPB Q6 MARGOTH PRN Reason: Protocol Stop: 01/02/18 18:01 Last Admin: 12/30/17 12:57 Dose: 100 mls/hr Linezolid (Zyvox 600mg/300ml D5w) 600 mg in 300 mls @ 200 mls/hr IVPB Q12 MARGOTH PRN Reason: Protocol Stop: 01/02/18 22:01 Last Admin: 12/30/17 09:27 Dose: 200 mls/hr Morphine Sulfate (Morphine) 2 mg IVP Q6H PRN PRN Reason: Pain, severe (8-10) Last Admin: 12/30/17 12:57 Dose: 2 mg Oxycodone/Acetaminophen (Percocet 5/325 Mg Tab) 1 tab PO Q4H PRN PRN Reason: Pain, moderate (4-7) Stop: 01/02/18 07:28 Last Admin: 12/30/17 09:24 Dose: 1 tab - Labs Labs: 12/30/17 07:22 12/30/17 07:22 PT 11.4 SECONDS (9.4-12.5) 12/25/17 21:05 INR 1.00 (0.93-1.08) 12/25/17 21:05 - Constitutional Appears: Well, Non-toxic, No Acute Distress - Extremities Exam Additional comments: RLE focused physical exam: Vasc: DP and PT nonpalpable. Cap refill time: > 3 sec to all digits, Temperature gradient cool to cool from proximal to distal. No edema noted. Derm: Ischemic cyanosis noted to right distal 1st, 4th, and 5th digits. Superficial ulceration noted to the dorsum of the right hallux and plantar aspect of digits 4th and 5th digits. The ulcerations measures approximately .5 x .5 x 0.1cm each; periwound erythema noted. Wound base is mixture of fibrotic and necrotic. No calor, malodor, drainage, purlence, ascending cellulitis, or clinical signs of infection noted. No probe to bone, no abscess. Left foot noted to have appearance of ischemic, blueish changes noted to distal digits 3,4 ,5 Neuro: Protective sensation grossly intact Ortho: Severe pain noted with light palpation to digits of the right foot > left foot. No calf pain or tenderness with palpation - Neurological Exam Neurological Exam: Alert, Awake, Oriented x3 - Psychiatric Exam Psychiatric exam: Normal Affect, Normal Mood Assessment and Plan - Assessment and Plan (Free Text) Assessment: 77 year old male patient with bilateral ischemic changes R foot > L foot and right foot superficial ulcerations. Plan: Patient examined and evaluated alongside attending, Dr. Pollard WBC increasing @ 18.4, afebrile Duplex RLE arterial US- Normal velocities are noted in the right SFA. No significant stenoses were noted IMPRESSION: Patent right external iliac stent and SFA R CAMILA IMPRESSION: 1. Borderline abnormal right CAMILA. Improved from previous study 2. Left SFA and tibial disease Vascular- no additional vascular intervention during this time No podiatric surgical intervention at this time Continue local wound care - eschar removed to medial hallux, and dressed with xeroform, DSD Multipodus boots must be worn at all times while in bed to prevent decubitus ulcer formation - patient continues to refuse AMA despite maximal education and encouragement Patient will benefit to a long-term facility Podiatry will continue to follow in house <Jason Pollard - Last Filed: 12/30/17 16:20> Objective - Vital Signs/Intake and Output Vital Signs (last 24 hours): Temp Pulse Resp BP Pulse Ox 97.6 F 74 18 140/80 95 12/30/17 07:58 12/30/17 07:58 12/30/17 07:58 12/30/17 09:26 12/30/17 07:58 Intake and Output: 12/30/17 12/30/17 06:59 18:59 Intake Total 480 120 Output Total 750 150 Balance -270 -30 - Medications Medications: Current Medications Amlodipine Besylate (Norvasc) 10 mg PO DAILY [facility] Last Admin: 12/30/17 09:26 Dose: 10 mg Aspirin (Aspirin Chewable) 81 mg PO DAILY [facility] Last Admin: 12/30/17 09:19 Dose: 81 mg Atorvastatin Calcium (Lipitor) 20 mg PO DIN [facility] Last Admin: 12/29/17 17:08 Dose: 20 mg Piperacillin Sod/Tazobactam Sod (Zosyn 2.25 Gm In 0.9% 100 Ml) 2.25 gm in 100 mls @ 100 mls/hr IVPB Q6 MARGOTH PRN Reason: Protocol Stop: 01/02/18 18:01 Last Admin: 12/30/17 12:57 Dose: 100 mls/hr Linezolid (Zyvox 600mg/300ml D5w) 600 mg in 300 mls @ 200 mls/hr IVPB Q12 MARGOTH PRN Reason: Protocol Stop: 01/02/18 22:01 Last Admin: 12/30/17 09:27 Dose: 200 mls/hr Morphine Sulfate (Morphine) 2 mg IVP Q6H PRN PRN Reason: Pain, severe (8-10) Last Admin: 12/30/17 12:57 Dose: 2 mg Oxycodone/Acetaminophen (Percocet 5/325 Mg Tab) 1 tab PO Q4H PRN PRN Reason: Pain, moderate (4-7) Stop: 01/02/18 07:28 Last Admin: 12/30/17 09:24 Dose: 1 tab - Labs Labs: 12/30/17 07:22 12/30/17 07:22 PT 11.4 SECONDS (9.4-12.5) 12/25/17 21:05 INR 1.00 (0.93-1.08) 12/25/17 21:05 Attending/Attestation - Attestation I have personally seen and examined this patient.: Yes I have fully participated in the care of the patient.: Yes I have reviewed all pertinent clinical information, including history, physical exam and plan: Yes
[2017-12-31] MEDS: Piperacillin/Tazobact 2.25gm 2.25 GM/100 ML BAG IVPB SCH ×3 (05:54→18:33)
[2017-12-31 07:12] LABS: BASO # 0.03 K/mm3 (0.0-2.0); BASO % 0.2 % (0.0-3.0); EOS # 1.6 (0.0-0.7); GRAN # 11.21 (1.4-6.5); GRAN % 70.4 % (50.0-68.0); HEMOGLOBIN 9.1 g/dL (14.0-18.0); LYMPH # 1.8 (1.2-3.4); LYMPH % 11.4 % (22.0-35.0); MEAN CELL VOLUME 89.2 fl (80.0-105.0); MEAN CORPUSCULAR HEMOGLOBIN 28.9 pg (25.0-35.0); MEAN CORPUSCULAR HGB CONC 32.4 g/dl (31.0-37.0); MEAN PLATELET VOLUME 9.5 fl (7.0-11.0); MONO # 1.3 (0.1-0.6); RBC 3.15 10^6/uL (3.5-6.1); WHITE BLOOD COUNT 15.9 10^3/ul (4.5-11.0)
[2017-12-31 07:25] LABS: ALB/GLOB RATIO 0.8 (1.1-1.8); ALBUMIN 2.8 g/dL (3.0-4.8); CALCIUM 8.3 mg/dL (8.4-10.5)
--- NOTE | 2017-12-31 09:50 | PN ---
SUBJECTIVE: The patient was seen and examined at bedside on the general medical henson. No acute events overnight. He remains afebrile and hemodynamically stable and is pending placement to subacute rehab. This morning he states he feels well and offers no complaints. OBJECTIVE VITAL SIGNS: Temperature 98.2, pulse 75, blood pressure 163/96, respiratory rate 20, oxygen saturation 98% on room air. GENERAL: No apparent distress. HEENT: PERRL. EOMI. No scleral icterus. Conjunctival pallor is noted. NECK: No JVD. LUNGS: Clear to auscultation. CARDIOVASCULAR: Regular rate and rhythm. Normal S1 and S2. ABDOMEN: Normoactive bowel sounds. Soft, nontender, nondistended. EXTREMITIES: No edema. Lower extremities with ulcerations to the right first digit with necrosis and surrounding erythema. NEUROLOGIC: Awake, alert, and oriented x3. No focal motor deficits. LABORATORY DATA: WBC 15.9 with 70% neutrophils, hemoglobin 9, hematocrit 28, platelets 315. Sodium 139, potassium 4.6, chloride 108, bicarbonate 22, BUN 44, creatinine 4.5 , glucose 85. Blood cultures with no growth to date. ASSESSMENT: The patient is a 77 year old man with a past medical history of HTN, severe PVD s/p IR revascularization, CKD stage IV and anemia of chronic disease who presented for evaluation of increasing pain at the right first toe and was admitted for management of cellulitis and dry gangrene of the right first toe who is pending placement to subacute rehab. PLAN 1. Cellulitis with dry gangrene of the right first toe. Input from Dr. Irvin appreciated. No plans for surgery. Continue with local wound care. Input from Dr. Perkins appreciated. Continue with current antimicrobials. 2. Severe PVD s/p IR revascularization. Vascular studies reviewed and demonstrate patent stents. Continue medical therapy consisting of Lipitor 20 mg p.o. daily and Aspirin 81 mg p.o. daily. 3. CKD stage IV. Renal function remains at the patient's baseline. 4. Hypertension. Blood pressure is slightly elevated however his Amlodipine was just increased yesterday. We will continue to monitor hemodynamics and adjust antihypertensives as needed. 5. Anemia of chronic disease. Hb at baseline of 8-9. Continue to monitor CBC daily. 6. Prophylaxis. GI prophylaxis is not indicated as the patient is eating. DVT prophylaxis is not indicated as this patient is ambulatory. 7. Disposition. The patient pending placement to subacute rehab and is medically cleared for transfer. CODE STATUS: Full code. Tommie Pedraza MD ELLEN
[2017-12-31] MEDS: Linezolid 600 mg in D5W 300 ml 600 MG/300 ML BAG IVPB SCH (10:26)
--- NOTE | 2017-12-31 16:56 | CP.PCM.PN ---
Subjective - Date & Time of Evaluation Date of Evaluation: 12/31/17 Time of Evaluation: 11:30 - Subjective Subjective: Comfortable, no fevers, not in distress. Objective - Vital Signs/Intake and Output Vital Signs (last 24 hours): Temp Pulse Resp BP Pulse Ox 98.2 F 75 20 163/96 H 98 12/31/17 08:02 12/31/17 08:02 12/31/17 08:02 12/31/17 08:02 12/31/17 08:02 Intake and Output: 12/31/17 12/31/17 06:59 18:59 Intake Total 760 Output Total 400 Balance 360 - Medications Medications: Current Medications Amlodipine Besylate (Norvasc) 10 mg PO DAILY [facility] Last Admin: 12/30/17 09:26 Dose: 10 mg Aspirin (Aspirin Chewable) 81 mg PO DAILY [facility] Last Admin: 12/30/17 09:19 Dose: 81 mg Atorvastatin Calcium (Lipitor) 20 mg PO DIN [facility] Last Admin: 12/30/17 17:15 Dose: 20 mg Piperacillin Sod/Tazobactam Sod (Zosyn 2.25 Gm In 0.9% 100 Ml) 2.25 gm in 100 mls @ 100 mls/hr IVPB Q6 MARGOTH PRN Reason: Protocol Stop: 01/02/18 18:01 Last Admin: 12/31/17 05:54 Dose: 100 mls/hr Linezolid (Zyvox 600mg/300ml D5w) 600 mg in 300 mls @ 200 mls/hr IVPB Q12 MARGOTH PRN Reason: Protocol Stop: 01/02/18 22:01 Last Admin: 12/30/17 21:18 Dose: 200 mls/hr Morphine Sulfate (Morphine) 2 mg IVP Q6H PRN PRN Reason: Pain, severe (8-10) Last Admin: 12/30/17 12:57 Dose: 2 mg Oxycodone/Acetaminophen (Percocet 5/325 Mg Tab) 1 tab PO Q4H PRN PRN Reason: Pain, moderate (4-7) Stop: 01/02/18 07:28 Last Admin: 12/30/17 17:16 Dose: 1 tab - Labs Labs: 12/31/17 06:40 12/31/17 06:40 PT 11.4 SECONDS (9.4-12.5) 12/25/17 21:05 INR 1.00 (0.93-1.08) 12/25/17 21:05 - Constitutional Appears: Chronically Ill - Head Exam Head Exam: NORMAL INSPECTION - Respiratory Exam Respiratory Exam: Decreased Breath Sounds - Cardiovascular Exam Cardiovascular Exam: +S1, +S2 - GI/Abdominal Exam GI & Abdominal Exam: Soft. absent: Tenderness Assessment and Plan - Assessment and Plan (Free Text) Plan: Assessment peripheral vascular disease with necrotic toes and ulceration bilaterally, S/P revascularization history of Right foot cellulitis with right hallux gangrene Peripheral vascular disease HTN Plancycline continue Zyvox and Zosyn (day 6); as per Podiatry, no plans for surgery; would recommend 10-14 days of antibiotics - can use Doxycycline IV instead of Zyvox will continue to monitor clinically while the patient is in the hospital
[2017-12-31] MEDS: Morphine 2 mg/2 mL syringe IVP PRN (21:06)
--- NOTE | 2017-12-31 22:21 | PN ---
DATE: 12/31/2017 SUBJECTIVE: This is a 77-year-old male seen for ischemic feet and pain, right greater than left. Patient is seen at bedside. Patient is much more alert than previously seen. He states he feels better, but his feet do bother him. He states that he signed out at [facility] when he was sent there on his last hospital admission because they were not doing anything for him. He did state that he was walking while he was in [facility]; however, since he has been in home, he has not walked. OBJECTIVE: VITAL SIGNS: Reviewed. His temperature is 97.7, blood pressure is 147/89, respiratory rate 20, and the oxygen sat was 98%. LABORATORY DATA: Reviewed. His white blood cell count is 15.9, his H and H 9.1 and 28.1, and his platelets are 315. His chemistry shows BUN and creatinine of 44 and 4.5. Patient's lower extremities were evaluated. He does have resolving gangrene to the toe when he was first admitted. The toes on the right foot were gangrenous and necrotic. He now has on the fourth and fifth toes resolving gangrene that you could see some pink tissue underneath some of the overlying skin. However, patient is still painful that you cannot touch the toes without causing him pain. His hallux has a small ulcer at the distal medial portion. Because of this ulceration, I am going to order an MRI to rule out osteo, but clinically the foot does not present infected. There is no ascending cellulitis. There is no color noted to the foot and besides the small amount of drainage coming from the hallux wound, there is no fluctuance noted. His left foot is relatively asymptomatic. He states he does get some pain, but this is nothing like the right foot. I did repeat the extremity ultrasound and the flow to the right foot is much improved since his revascularization of the iliac arteries with Dr. Rolle on his last admission and he has good flow to the ankle and the foot. His left foot, however, is the foot where the waveforms are fairly flat, but with patient being asymptomatic at this time. I am not going to suggest any treatment and I will have Dr. Rolle take a look at him again. In the meantime, MRI will be ordered to rule out osteo as a portion of the white blood cell count and we will continue with local care. I did discuss with patient about going into a subacute rehab. Since he is not walking, he cannot go home alone, he cannot get out of bed. He is home alone, his is in rehab because she is not walking. He did agree to go to [facility] where his is. I did speak to social media specialist about the same. Sylwia Irvin DPM
[2018-01-01] MEDS: Piperacillin/Tazobact 2.25gm 2.25 GM/100 ML BAG IVPB SCH ×5 (00:09→23:25)
[2018-01-01] MEDS: Oxycodone/Acetaminophen 5/325 mg Tab PO PRN ×2 (01:09→05:40)
[2018-01-01] MEDS: Morphine 2 mg/2 mL syringe IVP PRN (03:38)
[2018-01-01 07:12] LABS: BASO # 0.04 K/mm3 (0.0-2.0); BASO % 0.3 % (0.0-3.0); EOS # 1.5 (0.0-0.7); EOS % 10.8 % (1.5-5.0); GRAN # 8.77 (1.4-6.5); GRAN % 64.8 % (50.0-68.0); HEMOGLOBIN 9.4 g/dL (14.0-18.0); LYMPH # 2.1 (1.2-3.4); LYMPH % 15.7 % (22.0-35.0); MEAN CELL VOLUME 89.4 fl (80.0-105.0); MEAN CORPUSCULAR HEMOGLOBIN 28.6 pg (25.0-35.0); MEAN PLATELET VOLUME 9.8 fl (7.0-11.0); MONO # 1.1 (0.1-0.6); MONO % 8.4 % (1.0-6.0); RBC 3.29 10^6/uL (3.5-6.1); RED CELL DISTRIBUTION WIDTH 14.8 % (11.5-14.5); WHITE BLOOD COUNT 13.5 10^3/ul (4.5-11.0)
[2018-01-01 07:13] LABS: ALB/GLOB RATIO 0.8 (1.1-1.8); ALBUMIN 2.8 g/dL (3.0-4.8); CALCIUM 8.5 mg/dL (8.4-10.5)
--- NOTE | 2018-01-01 08:17 | PCM.RRT ---
NAIL WELTER Nurse Assessment - Situation Date: 01/01/18 Time NAIL WELTER was called: 08:05 NAIL WELTER Responder Arrival Time: 08:05 NAIL WELTER Location:: [facility] NAIL WELTER Called By: RN - IV IV Inserted during NAIL WELTER?: No - Respiratory Received Nebulizer Treatments:: No Was the Patient Ventilated with Bag/Mask 100% O2?: No Secretions Suctioned?: No Was the Patient Intubated?: No Was the Patient Placed on a Ventilator?: No - Diagnostic Test Ordered EKG: No Chest X-Ray: No CT Scan: No CPR started during NAIL WELTER?: No - Vital Signs Vital Sign: HR: 77 BP: 159/77 RR: 18 T: 98.7 97% O2 - [place] Coma Scale Coma Scale Eye Opening: Spontaneous Coma Scale Motor: Obeys Commands Movement - Time NAIL WELTER Ended Time NAIL WELTER Ended: 08:11 - Recommendations 5) NAIL WELTER Level of Care Recommendations: Remain in current setting Notifications: Attending Physician I.Reason for NAIL WELTER - A) Acute Change in Patient: Subjective: Patient was in the restroom, tripped on feces and fell on one knee. Patient denies dizziness before falling, denies any head trauma, and denies any loss of consciousness, biting his tongue, or loss of bowel bladder. - Neurological Status (Select all that apply): Alert, Responsive, Oriented, Verbal, Follows Commands - Respiratory Oxygen Delivery Method: Room Air - Constitutional Appears: Non-toxic, No Acute Distress, Chronically Ill - Head Head Exam: ATRAUMATIC, NORMAL INSPECTION, NORMOCEPHALIC - Eyes Eye Exam: EOMI, Normal appearance, PERRL - Respiratory Exam Respiratory Exam: Clear to Ausculation Bilateral, NORMAL BREATHING PATTERN - Cardiovascular Exam Cardiovascular Exam: REGULAR RHYTHM, +S1, +S2. absent: Gallop - GI/Abdominal Exam GI & Abdominal Exam: Soft, Normal Bowel Sounds - Neurological Exam Neurological Exam: Alert, Awake, CN II-XII Intact, Normal Gait, Oriented x3 - Extremities Exam Extremities Exam: Full ROM, Normal Capillary Refill, Normal Inspection Plan - Assessment of Findings&Treatment Plan 77 year old male presenting status post fall to one knee. No subjective or witnessed head trauma. No evidence of seizure activity or syncope. Plan: - Bacitracin cream - PMD at bedside, no xray necessary
--- NOTE | 2018-01-01 09:14 | MRI ---
PROCEDURE: MRI of the right foot without contrast HISTORY: infection, right big toe COMPARISON: TECHNIQUE: MRI of the right foot was performed in multiple planes using multiple pulse sequences. FINDINGS: There is subcutaneous edema over the dorsum of the foot consistent with cellulitis versus passive edema. There is no marrow edema to suggest osteomyelitis. There is no evidence of a focal abscess. IMPRESSION: No evidence of osteomyelitis
--- NOTE | 2018-01-01 12:16 | PN ---
SUBJECTIVE: The patient seen and examined at bedside on the general medical henson. No acute events overnight. He remains afebrile, hemodynamically stable and clinically unchanged. This morning the patient was found on the ground in the bathroom after he attempted to ambulate without assistance despite being asked multiple times to call for assistance with ambulation due to his underlying right foot issues. There was no major trauma noted and the patient denies loss of consciousness stating it was strictly a mechanical fall. OBJECTIVE: VITAL SIGNS: Temperature 97.9, pulse 69, blood pressure 153/87, respiratory rate 18, oxygen saturation 97% on room air. GENERAL: No apparent distress. HEENT: PERRL. EOMI. No scleral icterus. Conjunctival pallor is noted. NECK: No JVD. LUNGS: Clear to auscultation. CARDIOVASCULAR: Regular rate and rhythm. Normal S1 and S2. ABDOMEN: Normoactive bowel sounds. Soft, nontender and nondistended. EXTREMITIES: No edema. Lower extremity with ulceration to the right first digit with necrosis and surrounding erythema. NEUROLOGIC: Awake, alert and oriented x3. No focal motor deficits. LABORATORY DATA: WBC 13.5 with 65% neutrophils, hemoglobin 9, hematocrit 29, platelets 337. Sodium 140, potassium 4.3, chloride 108, bicarbonate 22, BUN 39, creatinine 4.3 , glucose 90. Blood cultures negative. ASSESSMENT: The patient is a 77 year old man with a past medical history of hypertension, severe PVD s/p IR revascularization, CKD stage IV and anemia of chronic disease who presented for evaluation of increasing pain at the right first toe and was admitted for management of cellulitis and dry gangrene of the right first toe and who is presently pending placement to subacute rehab. PLAN: 1. Cellulitis with dry gangrene of the right first toe. Input from Dr. Irvin greatly appreciated. No plans for surgery. Continue with local wound care. Input from Dr. Perkins appreciated and antimicrobials have been adjusted. MRI negative for osteomyelitis. 2. Severe PVD s/p IR revascularization. Vascular studies reviewed and demonstrate patent stents. Continue medical therapy consisting of Lipitor 20 mg p.o. daily and Aspirin 81 mg p.o. daily. 3. CKD stage IV. Renal function remains at the patient's baseline. 4. Hypertension. Continue Amlodipine 10 mg p.o. daily. 5. Anemia of chronic disease. Hb at baseline of 8-9. 6. Prophylaxis. GI prophylaxis is not indicated as the patient is eating. DVT prophylaxis is not indicated as this patient is ambulatory. 7. Disposition. The patient is pending placement to subacute rehab and is medically cleared for transfer. CODE STATUS: Full code. Tommie Pedraza MD MTDD
--- NOTE | 2018-01-01 12:40 | CP.PCM.PN ---
Subjective - Date & Time of Evaluation Date of Evaluation: 01/01/18 Time of Evaluation: 11:50 - Subjective Subjective: Comfortable in bed, no fevers. Objective - Vital Signs/Intake and Output Vital Signs (last 24 hours): Temp Pulse Resp BP Pulse Ox 97.9 F 69 18 157/79 H 97 01/01/18 06:00 01/01/18 06:00 01/01/18 06:00 01/01/18 10:10 01/01/18 06:00 Intake and Output: 01/01/18 01/01/18 06:59 18:59 Intake Total 240 Output Total 700 Balance -460 - Medications Medications: Current Medications Amlodipine Besylate (Norvasc) 10 mg PO DAILY [facility] Last Admin: 01/01/18 10:10 Dose: 10 mg Aspirin (Aspirin Chewable) 81 mg PO DAILY [facility] Last Admin: 01/01/18 10:10 Dose: 81 mg Atorvastatin Calcium (Lipitor) 20 mg PO DIN [facility] Last Admin: 12/31/17 18:33 Dose: 20 mg Doxycycline Hyclate (Doryx) 100 mg PO Q12 [facility] PRN Reason: Protocol Last Admin: 01/01/18 10:10 Dose: 100 mg Piperacillin Sod/Tazobactam Sod (Zosyn 2.25 Gm In 0.9% 100 Ml) 2.25 gm in 100 mls @ 100 mls/hr IVPB Q6 [facility] PRN Reason: Protocol Stop: 01/02/18 18:01 Last Admin: 01/01/18 05:41 Dose: 100 mls/hr Morphine Sulfate (Morphine) 2 mg IVP Q6H PRN PRN Reason: Pain, severe (8-10) Last Admin: 01/01/18 03:38 Dose: 2 mg Oxycodone/Acetaminophen (Percocet 5/325 Mg Tab) 1 tab PO Q4H PRN PRN Reason: Pain, moderate (4-7) Stop: 01/02/18 07:28 Last Admin: 01/01/18 05:40 Dose: 1 tab - Labs Labs: 01/01/18 06:30 01/01/18 06:30 PT 11.4 SECONDS (9.4-12.5) 12/25/17 21:05 INR 1.00 (0.93-1.08) 12/25/17 21:05 - Constitutional Appears: Chronically Ill - Head Exam Head Exam: NORMAL INSPECTION - ENT Exam ENT Exam: Mucous Membranes Moist - Neck Exam Neck Exam: absent: Meningismus - Respiratory Exam Respiratory Exam: Decreased Breath Sounds - Cardiovascular Exam Cardiovascular Exam: +S1, +S2 - GI/Abdominal Exam GI & Abdominal Exam: Soft. absent: Tenderness - Extremities Exam Additional comments: left foot with dressings in place Assessment and Plan - Assessment and Plan (Free Text) Plan: Assessment peripheral vascular disease with necrotic toes and ulceration bilaterally, S/P revascularization history of Right foot cellulitis with right hallux gangrene Peripheral vascular disease HTN Plancycline continue Zyvox and Zosyn (day 8); as per Podiatry, no plans for surgery; would recommend 10-14 days of antibiotics - can use Doxycycline IV instead of Zyvox discussed with Dr. Pedraza will continue to monitor clinically while the patient is in the hospital
--- NOTE | 2018-01-01 14:22 | CT ---
PROCEDURE: CT HEAD WITHOUT CONTRAST. HISTORY: ams COMPARISON: None available. TECHNIQUE: Axial computed tomography images were obtained through the head/brain without intravenous contrast. Radiation dose: Total exam DLP = 853 mGy-cm. This CT exam was performed using one or more of the following dose reduction techniques: Automated exposure control, adjustment of the mA and/or kV according to patient size, and/or use of iterative reconstruction technique. FINDINGS: HEMORRHAGE: No intracranial hemorrhage. BRAIN: No mass effect or edema. Chronic microvascular changes in the periventricular white matter and basal ganglia VENTRICLES: Unremarkable. No hydrocephalus. CALVARIUM: Unremarkable. PARANASAL SINUSES: Unremarkable as visualized. No significant inflammatory changes. MASTOID AIR CELLS: Unremarkable as visualized. No inflammatory changes. OTHER FINDINGS: None. IMPRESSION: No acute findings
[2018-01-01] MEDS ORDERED: Naloxone 0.4 mg/ml Inj (Adult) IVP ONE ×2 (15:03→20:39)
[2018-01-01] MEDS ORDERED: Sodium Chloride 0.9% 1,000 ML IV STA (17:34)
--- NOTE | 2018-01-01 18:59 | CT ---
PROCEDURE: CT HEAD WITHOUT CONTRAST. HISTORY: unwitnessed fall COMPARISON: January 01, 2018. CT head study performed 13:50. TECHNIQUE: Axial computed tomography images were obtained through the head/brain without intravenous contrast. Radiation dose: Total exam DLP = 1139.78 mGy-cm. This CT exam was performed using one or more of the following dose reduction techniques: Automated exposure control, adjustment of the mA and/or kV according to patient size, and/or use of iterative reconstruction technique. FINDINGS: HEMORRHAGE: No intracranial hemorrhage. BRAIN: No mass effect or edema. Cortical atrophy, periventricular small vessel disease. VENTRICLES: Unremarkable. No hydrocephalus. CALVARIUM: Unremarkable. PARANASAL SINUSES: Unremarkable as visualized. No significant inflammatory changes. MASTOID AIR CELLS: Unremarkable as visualized. No inflammatory changes. OTHER FINDINGS: None. IMPRESSION: No acute intracranial abnormalities. No significant findings to account for the clinical presentation. No significant interval change compared to the prior examination(s).
--- NOTE | 2018-01-01 19:00 | CARD ---
APPROVED REPORT EKG Measurement Heart [id number] <Conclusion> Normal sinus rhythm with sinus arrhythmia Right bundle branch block Left anterior fascicular block Bifascicular block T wave abnormality, consider inferolateral ischemia Abnormal ECG
--- NOTE | 2018-01-01 20:39 | CP.PCM.PN ---
Subjective - Date & Time of Evaluation Date of Evaluation: 01/01/18 Time of Evaluation: 09:00 - Subjective Subjective: pt seen at bedside for f/u ischemic digits - pt had a fall in bathroom today; pt is in no acute distress Objective - Vital Signs/Intake and Output Vital Signs (last 24 hours): Temp Pulse Resp BP Pulse Ox 98.4 F 93 H 18 193/103 H 99 01/01/18 14:00 01/01/18 14:00 01/01/18 14:00 01/01/18 14:00 01/01/18 14:00 Intake and Output: 01/01/18 01/02/18 18:59 06:59 Intake Total 360 Output Total 300 Balance 60 - Medications Medications: Current Medications Amlodipine Besylate (Norvasc) 10 mg PO DAILY [facility] Last Admin: 01/01/18 10:10 Dose: 10 mg Aspirin (Aspirin Chewable) 81 mg PO DAILY [facility] Last Admin: 01/01/18 10:10 Dose: 81 mg Atorvastatin Calcium (Lipitor) 20 mg PO DIN [facility] Last Admin: 01/01/18 18:00 Dose: Not Given Doxycycline Hyclate (Doryx) 100 mg PO Q12 [facility] PRN Reason: Protocol Last Admin: 01/01/18 10:10 Dose: 100 mg Hydralazine HCl (Apresoline) 50 mg PO BID [facility] Last Admin: 01/01/18 18:00 Dose: Not Given Piperacillin Sod/Tazobactam Sod (Zosyn 2.25 Gm In 0.9% 100 Ml) 2.25 gm in 100 mls @ 100 mls/hr IVPB Q6 [facility] PRN Reason: Protocol Stop: 01/02/18 18:01 Last Admin: 01/01/18 18:00 Dose: Not Given Oxycodone/Acetaminophen (Percocet 5/325 Mg Tab) 1 tab PO Q4H PRN PRN Reason: Pain, moderate (4-7) Stop: 01/02/18 07:28 Last Admin: 01/01/18 05:40 Dose: 1 tab - Labs Labs: 01/01/18 06:30 01/01/18 06:30 PT 11.4 SECONDS (9.4-12.5) 12/25/17 21:05 INR 1.00 (0.93-1.08) 12/25/17 21:05 - Constitutional Appears: No Acute Distress - Extremities Exam Additional comments: right foot is warm decreased capillary refill - wound on hallux small with no sinus tract or undermining; minimal drainage; 4th and 5th toes with resolving gangrene the remainder of the toes have some discoloration of toes but no gonzález gangrene is noted; the left foot is cool but less painful than the right no open wounds noted on the left Assessment and Plan - Assessment and Plan (Free Text) Assessment: PVD s/p successful vascular intervention Plan: A&D ointment to feet bilateral daily pt to go to subacute for PT to start ambulation
--- NOTE | 2018-01-01 20:44 | PCM.RRT ---
REFINING ENGINEER Nurse Assessment - Situation Date: 01/01/18 Time REFINING ENGINEER was called: 08:05 REFINING ENGINEER Responder Arrival Time: 08:05 REFINING ENGINEER Location:: [facility] REFINING ENGINEER Called By: RN - IV IV Inserted during REFINING ENGINEER?: No - Respiratory Oxygen Delivery Method: Room Air Received Nebulizer Treatments:: No Was the Patient Ventilated with Bag/Mask 100% O2?: No Secretions Suctioned?: No Was the Patient Intubated?: No Was the Patient Placed on a Ventilator?: No - Diagnostic Test Ordered EKG: No Chest X-Ray: No CT Scan: No CPR started during REFINING ENGINEER?: No - [place] Coma Scale Coma Scale Eye Opening: Spontaneous Coma Scale Motor: Obeys Commands Movement - Time REFINING ENGINEER Ended Time REFINING ENGINEER Ended: 08:11 - Recommendations 5) REFINING ENGINEER Level of Care Recommendations: Remain in current setting Notifications: Attending Physician I.Reason for REFINING ENGINEER - A) Acute Change in Patient: Subjective: Patient was standing, had an unwitnessed fall. Feces was on the floor and in the bed Patient denies dizziness before falling, denies any head trauma, and denies any loss of consciousness, biting his tongue, or loss of bladder. Sputum was found in his weiner - Neurological Status (Select all that apply): Alert, Responsive, Verbal, Follows Commands, Disoriented, Confused - Respiratory Oxygen Delivery Method: Room Air - Constitutional Appears: Unkempt, Confused, Chronically Ill - Head Head Exam: ATRAUMATIC, NORMAL INSPECTION, NORMOCEPHALIC - Eyes Eye Exam: EOMI, Normal appearance, PERRL - Respiratory Exam Respiratory Exam: Clear to Ausculation Bilateral, NORMAL BREATHING PATTERN - Cardiovascular Exam Cardiovascular Exam: REGULAR RHYTHM - GI/Abdominal Exam GI & Abdominal Exam: Normal Bowel Sounds - Neurological Exam Neurological Exam: Alert, Altered, Awake, CN II-XII Intact - Extremities Exam Extremities Exam: Full ROM, Normal Capillary Refill, Normal Inspection Plan - Assessment of Findings&Treatment Plan 77 year old male s/p second fall. Plan: EKG, Chest Xray to rule out aspiration, Head CT, Blood glucose (normal), Fluid bolus, Orthostatics.
[2018-01-01 20:56] LABS: HEPATITIS B SURFACE AG Negative (NEGATIVE)
[2018-01-01 20:58] LABS: ARTERIAL BLOOD GAS HCO3 19.2 mmol/L (21-28); ARTERIAL BLOOD GAS HEMOGLOBIN 10.1 g/dL (11.7-17.4); ARTERIAL BLOOD GAS O2 CONTENT 13.9 ML/dl (15-23); ARTERIAL BLOOD GAS O2 SAT 99.6 % (95-98); ARTERIAL BLOOD GAS PCO2 31 mm/Hg (35-45); ARTERIAL BLOOD GAS TCO2 20.2 mmol.L (22-28)
[2018-01-01 21:02] LABS: HEPATITIS A IGM NEGATIVE (NEGATIVE); HEPATITIS B CORE AB NEGATIVE (NEGATIVE)
--- NOTE | 2018-01-01 21:05 | PCM.RRT ---
PREPARATION OPERATOR Nurse Assessment - Situation Date: 01/01/18 Time PREPARATION OPERATOR was called: 08:05 PREPARATION OPERATOR Responder Arrival Time: 08:05 PREPARATION OPERATOR Location:: [facility] PREPARATION OPERATOR Called By: RN - IV IV Inserted during PREPARATION OPERATOR?: No - Respiratory Oxygen Delivery Method: Room Air Received Nebulizer Treatments:: No Was the Patient Ventilated with Bag/Mask 100% O2?: No Secretions Suctioned?: No Was the Patient Intubated?: No Was the Patient Placed on a Ventilator?: No - Diagnostic Test Ordered EKG: No Chest X-Ray: No CT Scan: No CPR started during PREPARATION OPERATOR?: No - Ch[place]ita Coma Scale Coma Scale Eye Opening: Spontaneous Coma Scale Motor: Obeys Commands Movement - Time PREPARATION OPERATOR Ended Time PREPARATION OPERATOR Ended: 08:11 - Recommendations 5) PREPARATION OPERATOR Level of Care Recommendations: Remain in current setting Notifications: Attending Physician I.Reason for PREPARATION OPERATOR - A) Acute Change in Patient: Subjective: Pt is a 77 yo M was found unresponsive by nurse. PREPARATION OPERATOR was called at 8:05 pm. Earlier today, 2 code stars were called. Work up afterwards was negative. Pt was given Morphine around 3 am. During, code star, patient was given Narcan around 3 pm. No contributing medications have been administered since. Pt BP was slightly hypertensive. Blood glucose was in the 130s. On my exam, patient was found to be only arousable through pain stimuli. Eyes closed and would not open to command. Pt only makes moaning sounds and does not respond to verbal commands. - Neurological Status (Select all that apply): Disoriented, Confused, Lethargic. absent: Alert, Responsive, Oriented, Verbal, Follows Commands, Aggressive, Weakness - Respiratory Oxygen Delivery Method: Room Air - Constitutional Appears: In Acute Distress, Cachectic - Head Head Exam: NORMAL INSPECTION - Eyes Additional Comments: B/l miosis 2-3 mm - Respiratory Exam Respiratory Exam: Clear to Ausculation Bilateral. absent: Rales, Rhonchi, Wheezes - Cardiovascular Exam Cardiovascular Exam: RRR, +S1, +S2. absent: Gallop, Rubs, Murmur - GI/Abdominal Exam GI & Abdominal Exam: Soft. absent: Distended, Guarding, Tenderness, Rebound - Neurological Exam Neurological Exam: Altered. absent: Alert, Awake, Oriented x3 Plan - Assessment of Findings&Treatment Plan 77 yo M found unresponsive. - CT head from earlier in the day were reviewed and showed no active process. - CBC - CMP - ABG shock panel - EKG - Troponin - Narcan 0.8 mg
[2018-01-01 21:09] LABS: BASO # 0.01 K/mm3 (0.0-2.0); BASO % 0.1 % (0.0-3.0); EOS % 0.1 % (1.5-5.0); GRAN # 15.42 (1.4-6.5); GRAN % 87.5 % (50.0-68.0); HEMOGLOBIN 11.1 g/dL (14.0-18.0); LYMPH # 1.2 (1.2-3.4); LYMPH % 6.5 % (22.0-35.0); MEAN CELL VOLUME 89.8 fl (80.0-105.0); MEAN CORPUSCULAR HEMOGLOBIN 29.1 pg (25.0-35.0); MEAN CORPUSCULAR HGB CONC 32.5 g/dl (31.0-37.0); MEAN PLATELET VOLUME 9.5 fl (7.0-11.0); MONO % 5.8 % (1.0-6.0); RBC 3.81 10^6/uL (3.5-6.1); WHITE BLOOD COUNT 17.6 10^3/ul (4.5-11.0)
[2018-01-01 21:14] LABS: HEPATITIS C ANTIBODY NEGATIVE (NEGATIVE)
[2018-01-01 21:17] LABS: VENOUS BLOOD GAS BASE EXCESS -4.9 mmol/L (0.0-2.0); VENOUS BLOOD GAS PO2 40 mm/Hg (30-55); VENOUS BLOOD PH 7.36 (7.32-7.43)
[2018-01-01 21:30] LABS: TROPONIN I 0.03 ng/mL
[2018-01-01 21:32] LABS: ALB/GLOB RATIO 0.9 (1.1-1.8); ALBUMIN 3.5 g/dL (3.0-4.8); CALCIUM 9.1 mg/dL (8.4-10.5)
[2018-01-01] MEDS ORDERED: Vitamin A/D oint 60G TP SCH (22:00)
[2018-01-01] MEDS: Vitamins A & D Oint UD Foilpak TOP SCH (22:54)
[2018-01-02 00:32] LABS: VENOUS BLOOD GAS BASE EXCESS -5.1 mmol/L (0.0-2.0); VENOUS BLOOD GAS PO2 50 mm/Hg (30-55); VENOUS BLOOD PH 7.35 (7.32-7.43)
--- NOTE | 2018-01-02 01:06 | CT ---
EXAM: CT Chest Without Intravenous Contrast EXAM DATE/TIME: 01/01/2018 10:38 PM CLINICAL HISTORY: 77 years old, male; Signs and symptoms; Shortness of breath; Additional info: SOB TECHNIQUE: Axial computed tomography images of the chest without intravenous contrast. All CT scans at this facility use one or more dose reduction techniques, viz.: automated exposure control; ma/kV adjustment per patient size (including targeted exams where dose is matched to indication; i.e. head); or iterative reconstruction technique. Coronal and sagittal reformatted images were created and reviewed. COMPARISON: Recent chest radiographs. FINDINGS: LIMITATIONS: Moderate streak/motion artifact. Streak artifact from the patient's arms. LUNGS: Multiple scattered nodular densities with ill-defined margins and adjacent hazy groundglass density are seen in the lungs bilaterally, varying in size. These are greatest in the superior segment of the left lower lobe, where multiple clustered nodules are seen. Patchy areas of consolidation in the superior segment of the left lower lobe. Scarring in the lung apices bilaterally. No evidence of diffuse pulmonary vascular congestion. High resolution images do not demonstrate any definite evidence of chronic interstitial lung disease, but evaluation is limited by the bilateral pleural effusions PLEURAL SPACE: Moderate bilateral pleural effusions. No pneumothorax is seen. HEART: Coronary artery calcification. No evidence of significant pericardial effusion. BONES/JOINTS: No acute fractures or other acute bony abnormality noted. SOFT TISSUES: No acute abnormality of the visualized soft tissues is seen. VASCULATURE: Ascending thoracic aorta is ectatic, without gonzález aneurysmal dilatation, measuring 4 cm (greater than 5 cm is considered aneurysmal dilatation). Exam is nondiagnostic for the detection of aortic dissection because of suboptimal enhancement of the aorta. LYMPH NODES: No evidence of diffuse lymphadenopathy. GALLBLADDER AND BILE DUCTS: Small gallstones. No CT evidence of acute cholecystitis. IMPRESSION: - Multiple nodular densities with ill-defined margins in the lungs bilaterally, greatest in the left lower lobe. Findings are suspicious for a multinodular type pneumonia/infectious process. Followup is recommended to document clearing, however. There is also patchy consolidation in the left lower lobe. - Moderate bilateral pleural effusions. - See above for remaining findings.
[2018-01-02] MEDS ORDERED: Sodium Chloride 0.45% 500 ML IV SCH (01:15)
[2018-01-02] MEDS: Levalbuterol 0.63 MG/3 ML Inhal Soln UD IH SCH ×4 (01:40→21:53)
[2018-01-02] MEDS ORDERED: Azithromycin 500MG/NS 250ml 500 MG/250 ML BAG IVPB STA (02:28)
[2018-01-02] MEDS ORDERED: Vancomycin 1gm in NS 250ml 1 GM/250 ML BAG IVPB STA (02:29)
[2018-01-02] MEDS: Piperacillin/Tazobact 2.25gm 2.25 GM/100 ML BAG IVPB SCH ×3 (05:32→17:18)
[2018-01-02] MEDS: Vitamins A & D Oint UD Foilpak TOP SCH ×3 (05:32→22:00)
[2018-01-02 06:22] LABS: BASO # 0.03 K/mm3 (0.0-2.0); BASO % 0.2 % (0.0-3.0); EOS # 0.1 (0.0-0.7); EOS % 0.5 % (1.5-5.0); GRAN # 10.55 (1.4-6.5); HEMOGLOBIN 10.1 g/dL (14.0-18.0); LYMPH # 1.6 (1.2-3.4); LYMPH % 12.3 % (22.0-35.0); MEAN CORPUSCULAR HEMOGLOBIN 28.8 pg (25.0-35.0); MEAN PLATELET VOLUME 9.8 fl (7.0-11.0); MONO # 0.9 (0.1-0.6); RBC 3.51 10^6/uL (3.5-6.1); RED CELL DISTRIBUTION WIDTH 15.1 % (11.5-14.5); WHITE BLOOD COUNT 13.2 10^3/ul (4.5-11.0)
[2018-01-02 07:17] LABS: ALB/GLOB RATIO 0.8 (1.1-1.8); ALBUMIN 2.9 g/dL (3.0-4.8); CALCIUM 8.6 mg/dL (8.4-10.5)
--- NOTE | 2018-01-02 09:27 | CP.PCM.PN ---
<Brigido Villa - Last Filed: 01/02/18 09:22> Subjective - Date & Time of Evaluation Date of Evaluation: 01/02/18 Time of Evaluation: 09:22 - Subjective Subjective: Podiatry Progress Note - Dr. Irvin/Atul 77 year old male patient seen and evaluated at bedside for bilateral ischemic changes R foot > L foot. Patient lethargic, not communicative today, only making moaning sounds. Two communication spec called yesterday. Multipodus boot present to bilateral LE. Unable to obtain HPI this visit however is withdrawing from pain when both feet are touched. Objective - Vital Signs/Intake and Output Vital Signs (last 24 hours): Temp Pulse Resp BP Pulse Ox 97.2 F L 84 20 163/91 H 98 01/02/18 06:00 01/02/18 06:00 01/02/18 06:00 01/02/18 06:00 01/02/18 06:00 Intake and Output: 01/02/18 01/02/18 06:59 18:59 Intake Total 120 Output Total 0 Balance 120 - Medications Medications: Current Medications Amlodipine Besylate (Norvasc) 10 mg PO DAILY [facility] Last Admin: 01/01/18 10:10 Dose: 10 mg Aspirin (Aspirin Chewable) 81 mg PO DAILY [facility] Last Admin: 01/01/18 10:10 Dose: 81 mg Atorvastatin Calcium (Lipitor) 20 mg PO DIN [facility] Last Admin: 01/01/18 18:00 Dose: Not Given Doxycycline Hyclate (Doryx) 100 mg PO Q12 [facility] PRN Reason: Protocol Last Admin: 01/01/18 22:54 Dose: Not Given Hydralazine HCl (Apresoline) 50 mg PO BID [facility] Last Admin: 01/01/18 18:00 Dose: Not Given Hydralazine HCl (Apresoline) 10 mg IVP Q6 [facility] Last Admin: 01/02/18 05:36 Dose: 10 mg Piperacillin Sod/Tazobactam Sod (Zosyn 2.25 Gm In 0.9% 100 Ml) 2.25 gm in 100 mls @ 100 mls/hr IVPB Q6 [facility] PRN Reason: Protocol Stop: 01/02/18 18:01 Last Admin: 01/02/18 05:32 Dose: 100 mls/hr Levalbuterol HCl (Xopenex) 0.63 mg IH [id number] [facility] Last Admin: 01/02/18 07:30 Dose: 0.63 mg Ondansetron HCl (Zofran Inj) 4 mg IVP Q6H PRN PRN Reason: Nausea/Vomiting Last Admin: 01/01/18 23:25 Dose: 4 mg Vitamin A (Vitamin A & D Oint Ud Foilpak) 1 ea TOP Q8H [facility] Last Admin: 01/02/18 05:32 Dose: 1 ea - Labs Labs: 01/02/18 05:30 01/02/18 05:30 PT 11.4 SECONDS (9.4-12.5) 12/25/17 21:05 INR 1.00 (0.93-1.08) 12/25/17 21:05 - Constitutional Appears: No Acute Distress - Extremities Exam Additional comments: right foot is warm decreased capillary refill - wound on hallux small with no sinus tract or undermining; minimal drainage; 4th and 5th toes with resolving gangrene the remainder of the toes have some discoloration of toes but no gonzález gangrene is noted; the left foot is cool but less painful than the right no open wounds noted on the left - Neurological Exam Neurological Exam: Awake Assessment and Plan - Assessment and Plan (Free Text) Assessment: 77 year old male with PVD s/p successful vascular intervention Plan: Patient examined and evaluated alongside attending, Dr. Pollard Afebrile, WBC 13.2 Duplex RLE arterial US- Normal velocities are noted in the right SFA. No significant stenoses were noted IMPRESSION: Patent right external iliac stent and SFA R CAMILA IMPRESSION: 1. Borderline abnormal right CAMILA. Improved from previous study 2. Left SFA and tibial disease Vascular- no additional vascular intervention during this time No podiatric surgical intervention at this time Continue local wound care - xeroform, DSD; A&D ointment to feet daily Multipodus boots must be worn at all times while in bed Patient will benefit to a long-term facility for physical therapy Podiatry will continue to follow in house <Jason Pollard - Last Filed: 01/03/18 07:15> Objective - Vital Signs/Intake and Output Vital Signs (last 24 hours): Temp Pulse Resp BP Pulse Ox 98.0 F 99 H 20 164/86 H 97 01/03/18 00:00 01/03/18 02:00 01/03/18 00:00 01/03/18 06:45 01/03/18 00:00 Intake and Output: 01/03/18 01/03/18 06:59 18:59 Intake Total 120 Output Total 800 Balance -680 - Medications Medications: Current Medications Amlodipine Besylate (Norvasc) 10 mg PO DAILY [facility] Last Admin: 01/02/18 10:53 Dose: Not Given Aspirin (Aspirin Chewable) 81 mg PO DAILY [facility] Last Admin: 01/02/18 10:53 Dose: Not Given Atorvastatin Calcium (Lipitor) 20 mg PO DIN [facility] Last Admin: 01/02/18 16:14 Dose: Not Given Doxycycline Hyclate (Doryx) 100 mg PO Q12 [facility] PRN Reason: Protocol Last Admin: 01/02/18 22:00 Dose: Not Given Hydralazine HCl (Apresoline) 50 mg PO BID [facility] Last Admin: 01/02/18 17:23 Dose: Not Given Hydralazine HCl (Apresoline) 10 mg IVP Q6 [facility] Last Admin: 01/03/18 06:45 Dose: 10 mg Levalbuterol HCl (Xopenex) 0.63 mg IH [id number] [facility] Last Admin: 01/03/18 03:15 Dose: 0.63 mg Ondansetron HCl (Zofran Inj) 4 mg IVP Q6H PRN PRN Reason: Nausea/Vomiting Last Admin: 01/01/18 23:25 Dose: 4 mg Vitamin A (Vitamin A & D Oint Ud Foilpak) 1 ea TOP Q8H [facility] Last Admin: 01/03/18 06:45 Dose: 1 ea - Labs Labs: 01/02/18 05:30 01/02/18 05:30 PT 11.4 SECONDS (9.4-12.5) 12/25/17 21:05 INR 1.00 (0.93-1.08) 12/25/17 21:05 Attending/Attestation - Attestation I have personally seen and examined this patient.: Yes I have fully participated in the care of the patient.: Yes I have reviewed all pertinent clinical information, including history, physical exam and plan: Yes
--- NOTE | 2018-01-02 09:51 | RAD ---
PROCEDURE: CHEST RADIOGRAPH, 1 VIEW HISTORY: unwitnessed fall COMPARISON: 12/25/2017 FINDINGS: LUNGS: Clear. PLEURA: No pneumothorax or pleural fluid seen. CARDIOVASCULAR: Normal. OSSEOUS STRUCTURES: No significant abnormalities. VISUALIZED UPPER ABDOMEN: Normal. OTHER FINDINGS: None. IMPRESSION: No active disease.
--- NOTE | 2018-01-02 10:03 | PN ---
DATE: LOCATION: The patient is in room 362, bed 1. SUBJECTIVE: The patient had 2 falls yesterday evening. CAT scans were done at that point. They were negative. Blood gases were also unremarkable. He then had a second CAT scan performed yesterday, which was also read as normal. He responds to verbal stimuli. PHYSICAL EXAMINATION: VITAL SIGNS: Showed a temperature of 97.2, pulse rate of 84, blood pressure 163/91, respiratory rate of 20 with an O2 saturation of 98% on room air. HEENT: PEERLA, EOMI. NECK: Supple with no bruits are present. LUNGS: Clear bilaterally with some few rhonchi in the right lung field. HEART: Shows a regular rate and rhythm. ABDOMEN: Benign. EXTREMITIES: He has a Unna boots on both feet. NEUROLOGIC: There is a left-sided weakness, otherwise there are no focal deficits. I will reorder a CAT scan this morning and we will have Dr. Wright see the patient. LABORATORY DATA: Lab values today are a WBC of 13.2, which is down from 17.6; hemoglobin and hematocrit of 10.1 and 31.6 with 80% granulocytes. Chemistry: The abnormals are chloride of 111; carbon dioxide of 19, which is up from 18 yesterday evening; BUN of 39; creatinine of 4.0. ASSESSMENT AND PLAN: At this time, the impression is that the patient may have had a stroke yesterday, which provoked the falls. Further management as per Dr. Wright. Rudyd Pedraza MD
--- NOTE | 2018-01-02 10:15 | CT ---
PROCEDURE: CT HEAD WITHOUT CONTRAST. HISTORY: Cva COMPARISON: 01/01/2018 CT TECHNIQUE: Axial computed tomography images were obtained through the head/brain without intravenous contrast. Radiation dose: Total exam DLP = 01/01/2018 mGy-cm. This CT exam was performed using one or more of the following dose reduction techniques: Automated exposure control, adjustment of the mA and/or kV according to patient size, and/or use of iterative reconstruction technique. FINDINGS: HEMORRHAGE: No intracranial hemorrhage. BRAIN: No mass effect or edema. Severe chronic microvascular changes are seen in the periventricular white matter and basal ganglia VENTRICLES: Unremarkable. No hydrocephalus. CALVARIUM: Unremarkable. PARANASAL SINUSES: Unremarkable as visualized. No significant inflammatory changes. MASTOID AIR CELLS: Unremarkable as visualized. No inflammatory changes. OTHER FINDINGS: None. IMPRESSION: No acute findings
--- NOTE | 2018-01-02 10:34 | MRI ---
PROCEDURE: MRI BRAIN WITHOUT CONTRAST HISTORY: r/o CVA COMPARISON: None. TECHNIQUE: Multiplanar, multisequence MR images of the brain were obtained without intravenous contrast enhancement. FINDINGS: HEMORRHAGE: None DWI: No evidence of an acute or early subacute infarction. BRAIN PARENCHYMA: No mass effect or edema. Severe chronic microvascular changes are seen in the periventricular white matter. VENTRICLES: Unremarkable. No hydrocephalus. CRANIUM: Unremarkable. ORBITS: Grossly unremarkable. PARANASAL SINUSES/MASTOIDS: Clear VASCULAR SYSTEM: Skull base flow voids intact. OTHER FINDINGS: None. IMPRESSION: No acute findings
--- NOTE | 2018-01-02 10:41 | CP.PCM.PCO ---
NIHSS Scale ([place]) Time Performed: 10:50 - How Severe is the Stoke Baseline Level of Consciousness: 1=Drowsy LOC to Questions: 2=Neither correct LOC to commands: 1=Obeys one correctly Best Gaze: 0=Normal Visual: 0=No visual loss Facial: 0=Normal Motor Arm - Left: 2=Falls before 10 sec Motor Arm - Right: 2=Falls before 10 sec Motor Leg - Left: 3=No effort against gravity (falls immediately) Motor Leg - Right: 3=No effort against gravity (falls immediately) Limb Ataxia: 0=Absent Sensory: 1=Mild to moderate loss Best Language: 1=Mild to moderate aphasia Dysarthia: 1=Mild to moderate slurring Extinction & Inattention (Neglect): 0=Normal, no object Score: 17 Risk Level: Mod/Sev Stroke Risk - Notes Notes: House Doc Evaluation For initial NIHSS stroke scale Patient lethargic on examination so full exam difficult to obtain. Head CT and MRI of brain noted to be negative. Asif Lam PGY2
--- NOTE | 2018-01-02 10:48 | CP.PCM.PN ---
Subjective - Date & Time of Evaluation Date of Evaluation: 01/02/18 Time of Evaluation: 08:30 - Subjective Subjective: Noted events overnight, where the patient was noted to have fallen on the floor of his room, currently patient is lethargic, arousable but only grunts, localizes to pain, no fevers noted. Objective - Vital Signs/Intake and Output Vital Signs (last 24 hours): Temp Pulse Resp BP Pulse Ox 97.9 F 84 20 163/91 H 99 01/02/18 00:00 01/02/18 05:36 01/02/18 01:33 01/02/18 05:36 01/01/18 14:00 Intake and Output: 01/01/18 01/02/18 18:59 06:59 Intake Total 360 120 Output Total 300 0 Balance 60 120 - Medications Medications: Current Medications Amlodipine Besylate (Norvasc) 10 mg PO DAILY [facility] Last Admin: 01/01/18 10:10 Dose: 10 mg Aspirin (Aspirin Chewable) 81 mg PO DAILY [facility] Last Admin: 01/01/18 10:10 Dose: 81 mg Atorvastatin Calcium (Lipitor) 20 mg PO DIN [facility] Last Admin: 01/01/18 18:00 Dose: Not Given Doxycycline Hyclate (Doryx) 100 mg PO Q12 [facility] PRN Reason: Protocol Last Admin: 01/01/18 22:54 Dose: Not Given Hydralazine HCl (Apresoline) 50 mg PO BID [facility] Last Admin: 01/01/18 18:00 Dose: Not Given Hydralazine HCl (Apresoline) 10 mg IVP Q6 [facility] Last Admin: 01/02/18 05:36 Dose: 10 mg Piperacillin Sod/Tazobactam Sod (Zosyn 2.25 Gm In 0.9% 100 Ml) 2.25 gm in 100 mls @ 100 mls/hr IVPB Q6 [facility] PRN Reason: Protocol Stop: 01/02/18 18:01 Last Admin: 01/02/18 05:32 Dose: 100 mls/hr Levalbuterol HCl (Xopenex) 0.63 mg IH [id number] [facility] Last Admin: 01/02/18 01:40 Dose: 0.63 mg Ondansetron HCl (Zofran Inj) 4 mg IVP Q6H PRN PRN Reason: Nausea/Vomiting Last Admin: 01/01/18 23:25 Dose: 4 mg Oxycodone/Acetaminophen (Percocet 5/325 Mg Tab) 1 tab PO Q4H PRN PRN Reason: Pain, moderate (4-7) Stop: 01/02/18 07:28 Last Admin: 01/01/18 05:40 Dose: 1 tab Vitamin A (Vitamin A & D Oint Ud Foilpak) 1 ea TOP Q8H [facility] Last Admin: 01/02/18 05:32 Dose: 1 ea - Labs Labs: 01/01/18 21:06 01/01/18 21:06 PT 11.4 SECONDS (9.4-12.5) 12/25/17 21:05 INR 1.00 (0.93-1.08) 12/25/17 21:05 - Constitutional Appears: Chronically Ill, Other (lethargic) - Head Exam Head Exam: NORMAL INSPECTION - Neck Exam Neck Exam: absent: Lymphadenopathy, Meningismus - Respiratory Exam Respiratory Exam: Decreased Breath Sounds - Cardiovascular Exam Cardiovascular Exam: +S1, +S2 - GI/Abdominal Exam GI & Abdominal Exam: Soft. absent: Tenderness Assessment and Plan - Assessment and Plan (Free Text) Plan: Assessment peripheral vascular disease with necrotic toes and ulceration bilaterally, S/P revascularization acute encephalopathy, etiology to be determined history of Right foot cellulitis with right hallux gangrene Peripheral vascular disease HTN Plancycline continue doxycycline and Zosyn (day 9); as per Podiatry, no plans for surgery; would recommend 10-14 days of antibiotics reviewed CT chest which is suggesting pneumonia - current antibiotics should be covering it and patient has not developed fevers reviewed brain MRI which is not showing acute CVA - follow up Neurology evaluation follow up repeat blood cx, will check urine cx and urinalysis will continue to monitor clinically
[2018-01-02 11:57] LABS: ARTERIAL BLOOD GAS HCO3 15.3 mmol/L (21-28); ARTERIAL BLOOD GAS O2 CAPACITY 13.7 mL/dl (16-24); ARTERIAL BLOOD GAS O2 CONTENT 13.6 ML/dl (15-23); ARTERIAL BLOOD GAS O2 SAT 99.5 % (95-98); ARTERIAL BLOOD GAS PCO2 27 mm/Hg (35-45); ARTERIAL BLOOD GAS PH 7.36 (7.35-7.45); ARTERIAL BLOOD GAS TCO2 16.1 mmol.L (22-28)
--- NOTE | 2018-01-02 14:15 | CON ---
DATE: 01/02/2018 NEUROLOGY CONSULT CHIEF COMPLAINT: Altered mental status. HISTORY OF PRESENT ILLNESS: This is a 77-year-old man with history of hypertension; severe peripheral vascular disease, status post IR revascularization; chronic kidney disease stage 4; anemia of chronic disease; who presented for increasing pain of his first toe, was admitted for management of cellulitis and dry gangrene of his right first toe and was consulted for change in mental status. He was currently given also morphine and his systolic and diastolic blood pressure was also elevated in that particular time of change in his mental status. In addition, he had frequent falls, unable to ambulate without assistance. His MRI of the brain showed no acute intracranial abnormalities, chronic ischemic changes. His ABG is unremarkable. His CT scan of his chest shows some features of multinodular densities consistent with possible multinodular type of pneumonia in the left lower lobe. He is very deconditioned. He follow simple commands, but he is very drowsy and lethargic. PAST MEDICAL HISTORY: History of hypertension; severe peripheral vascular disease, status post revascularization; chronic kidney disease stage 4 and anemia of chronic disease. REVIEW OF SYSTEMS: Fourteen-point review of systems negative except as per the HPI. ALLERGIES: NO KNOWN DRUG ALLERGIES. FAMILY HISTORY: Noncontributory. SOCIAL HISTORY: No illicit drug use, smoking or EtOH abuse at this time. PHYSICAL EXAMINATION: VITAL SIGNS: Temperature 97.2, pulse rate of 84, blood pressure 163/91, respiratory rate of 20, oxygen saturation 98% by room air. GENERAL: The patient is lethargic, in no acute distress. HEENT: Atraumatic, normocephalic. PERRLA. Extraocular muscles intact. NECK: Supple. No JVD. No adenopathy noted. LUNGS: Clear to auscultation. No adventitious sounds. HEART: S1 and S2. Normal rate and rhythm. No murmurs, rubs or gallops. ABDOMEN: Soft, nontender and nondistended. Bowel sounds are present. EXTREMITIES: No edema. Lower extremity with ulceration to the right first digit with necrosis and surrounding erythema. NEUROLOGIC: The patient is alert and oriented to person, but not place. Recall after 5 minutes 0/3. He is very lethargic. Poor attention span. Slow thought process. Cranial nerves II through XII are intact. Motor exam: Slight increased tone throughout. No pronator drift seen. Sensory exam: Withdraws on localized and noxious stimulus. Decreased light touch in his lower extremities. DTRs are 2+ throughout and 1 and both knees and ankles. Coordination and gait deferred for now since he is lethargic. LABORATORY DATA: Sodium 143, potassium 4.1, chloride 111, carbon dioxide of 19, BUN of 39, creatinine of 4, random glucose of 104. ASSESSMENT AND PLAN: This is a 77-year-old man with past medical history of hypertension, severe peripheral vascular disease, status post IR revascularization, chronic kidney disease stage 4, anemia of chronic disease, presented initially to the hospital with increasing pain of the right first toe and was admitted for management of cellulitis and dry gangrene of the right first toe, who has had multiple falls as well as found to be lethargic. He has history of morphine use while in the hospital for pain control, hypertensive urgency with elevated systolic and diastolic blood pressures. In addition, became very lethargic. His MRI of the brain showed no acute intracranial abnormalities. His altered mental status could be secondary to underlying toxic metabolic and medication effect in addition to hypertensive urgency. At this time, I recommend, 1. Thiamine 100 mg IV q. 12 for neuronal activation. 2. Avoid sedative medications. 3. 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 4. Avoid nighttime interruptions and delirium precautions. 5. Physical therapy, occupational therapy once stable and continue with current present medical management. Thank you for this consult. Roshan Wright MD
[2018-01-03] MEDS: Levalbuterol 0.63 MG/3 ML Inhal Soln UD IH SCH ×4 (03:15→19:19)
[2018-01-03] MEDS: Vitamins A & D Oint UD Foilpak TOP SCH ×3 (06:45→21:35)
[2018-01-03 07:34] LABS: BASO # 0.02 K/mm3 (0.0-2.0); BASO % 0.2 % (0.0-3.0); EOS % 0.2 % (1.5-5.0); GRAN # 10.2 (1.4-6.5); GRAN % 79.8 % (50.0-68.0); HEMOGLOBIN 9.7 g/dL (14.0-18.0); LYMPH # 1.4 (1.2-3.4); LYMPH % 10.7 % (22.0-35.0); MEAN CELL VOLUME 90.8 fl (80.0-105.0); MEAN CORPUSCULAR HEMOGLOBIN 28.8 pg (25.0-35.0); MEAN CORPUSCULAR HGB CONC 31.7 g/dl (31.0-37.0); MEAN PLATELET VOLUME 9.4 fl (7.0-11.0); MONO # 1.2 (0.1-0.6); MONO % 9.1 % (1.0-6.0); RBC 3.37 10^6/uL (3.5-6.1); RED CELL DISTRIBUTION WIDTH 15.7 % (11.5-14.5); WHITE BLOOD COUNT 12.8 10^3/ul (4.5-11.0)
[2018-01-03 08:00] LABS: ALB/GLOB RATIO 0.9 (1.1-1.8)
--- NOTE | 2018-01-03 08:41 | CP.PCM.PN ---
<Harinder Ocasio - Last Filed: 01/03/18 08:38> Subjective - Date & Time of Evaluation Date of Evaluation: 01/03/18 Time of Evaluation: 08:38 - Subjective Subjective: Podiatry Progress Note - Dr. Irvin/Atul 77 year old male patient seen and evaluated at bedside for bilateral ischemic changes R foot > L foot. Patient appears to be resting comfortably in his bed. Multipodus boot present to bilateral LE. Complains of pain when right foot is touched. Objective - Vital Signs/Intake and Output Vital Signs (last 24 hours): Temp Pulse Resp BP Pulse Ox 98.5 F 101 H 20 164/86 H 96 01/03/18 07:57 01/03/18 07:57 01/03/18 07:57 01/03/18 07:57 01/03/18 07:57 Intake and Output: 01/03/18 01/03/18 06:59 18:59 Intake Total 120 Output Total 800 Balance -680 - Medications Medications: Current Medications Amlodipine Besylate (Norvasc) 10 mg PO DAILY [facility] Last Admin: 01/02/18 10:53 Dose: Not Given Aspirin (Aspirin Chewable) 81 mg PO DAILY [facility] Last Admin: 01/02/18 10:53 Dose: Not Given Atorvastatin Calcium (Lipitor) 20 mg PO DIN [facility] Last Admin: 01/02/18 16:14 Dose: Not Given Doxycycline Hyclate (Doryx) 100 mg PO Q12 [facility] PRN Reason: Protocol Last Admin: 01/02/18 22:00 Dose: Not Given Hydralazine HCl (Apresoline) 50 mg PO BID [facility] Last Admin: 01/02/18 17:23 Dose: Not Given Hydralazine HCl (Apresoline) 10 mg IVP Q6 [facility] Last Admin: 01/03/18 06:45 Dose: 10 mg Meropenem 500 mg/ Sodium (Chloride) 50 mls @ 100 mls/hr IVPB Q12 [facility] PRN Reason: Protocol Stop: 01/10/18 10:01 Linezolid (Zyvox 600mg/300ml D5w) 600 mg in 300 mls @ 200 mls/hr IVPB Q12 [facility] PRN Reason: Protocol Stop: 01/10/18 10:01 Levalbuterol HCl (Xopenex) 0.63 mg IH [id number] [facility] Last Admin: 01/03/18 08:07 Dose: 0.63 mg Ondansetron HCl (Zofran Inj) 4 mg IVP Q6H PRN PRN Reason: Nausea/Vomiting Last Admin: 01/01/18 23:25 Dose: 4 mg Vitamin A (Vitamin A & D Oint Ud Foilpak) 1 ea TOP Q8H [facility] Last Admin: 01/03/18 06:45 Dose: 1 ea - Labs Labs: 01/03/18 07:00 01/03/18 07:00 PT 11.4 SECONDS (9.4-12.5) 12/25/17 21:05 INR 1.00 (0.93-1.08) 12/25/17 21:05 - Constitutional Appears: Well, Non-toxic, No Acute Distress - Extremities Exam Additional comments: right foot is warm decreased capillary refill - wound on hallux small with no sinus tract or undermining; minimal drainage; 4th and 5th toes with resolving gangrene the remainder of the toes have some discoloration of toes but no gonzález gangrene is noted; the left foot is cool but less painful than the right no open wounds noted on the left - Neurological Exam Neurological Exam: Alert, Awake - Psychiatric Exam Psychiatric exam: Normal Affect, Normal Mood Assessment and Plan - Assessment and Plan (Free Text) Assessment: 77 year old male with PVD s/p successful vascular intervention Plan: Patient examined and evaluated alongside attending, Dr. Pollard Afebrile, WBC 12.8 Duplex RLE arterial US- Normal velocities are noted in the right SFA. No significant stenoses were noted IMPRESSION: Patent right external iliac stent and SFA R CAMILA IMPRESSION: 1. Borderline abnormal right CAMILA. Improved from previous study 2. Left SFA and tibial disease Vascular- no additional vascular intervention during this time No podiatric surgical intervention at this time Continue local wound care - xeroform, DSD; A&D ointment to feet daily Multipodus boots must be worn at all times while in bed Patient will benefit to a long-term facility for physical therapy Podiatry will continue to follow in house <Jason Pollard - Last Filed: 01/04/18 08:21> Objective - Vital Signs/Intake and Output Vital Signs (last 24 hours): Temp Pulse Resp BP Pulse Ox 98.2 F 90 20 162/94 H 97 01/04/18 07:24 01/04/18 07:24 01/04/18 07:24 01/04/18 07:24 01/04/18 07:24 Intake and Output: 01/04/18 01/04/18 06:59 18:59 Intake Total 840 Balance 840 - Medications Medications: Current Medications Amlodipine Besylate (Norvasc) 10 mg PO DAILY [facility] Last Admin: 01/03/18 09:24 Dose: 10 mg Aspirin (Aspirin Chewable) 81 mg PO DAILY [facility] Last Admin: 01/03/18 09:24 Dose: 81 mg Atorvastatin Calcium (Lipitor) 20 mg PO DIN [facility] Last Admin: 01/03/18 18:00 Dose: 20 mg Doxycycline Hyclate (Doryx) 100 mg PO Q12 [facility] PRN Reason: Protocol Last Admin: 01/03/18 21:34 Dose: 100 mg Heparin Sodium (Porcine) (Heparin) 5,000 units SC Q8 [facility] PRN Reason: Protocol Last Admin: 01/04/18 06:01 Dose: 5,000 units Hydralazine HCl (Apresoline) 50 mg PO BID [facility] Last Admin: 01/03/18 18:00 Dose: 50 mg Hydralazine HCl (Apresoline) 10 mg IVP Q6 [facility] Last Admin: 01/04/18 06:39 Dose: 10 mg Meropenem 500 mg/ Sodium (Chloride) 50 mls @ 100 mls/hr IVPB Q12 [facility] PRN Reason: Protocol Stop: 01/10/18 10:01 Last Admin: 01/03/18 21:34 Dose: 100 mls/hr Linezolid (Zyvox 600mg/300ml D5w) 600 mg in 300 mls @ 200 mls/hr IVPB Q12 [facility] PRN Reason: Protocol Stop: 01/10/18 10:01 Last Admin: 01/03/18 21:34 Dose: 200 mls/hr Sodium Chloride (Sodium Chloride 0.9%) 1,000 mls @ 60 mls/hr IV .[id number] [facility] Last Admin: 01/03/18 10:05 Dose: 60 mls/hr Levalbuterol HCl (Xopenex) 0.63 mg IH [id number] [facility] Last Admin: 01/04/18 08:15 Dose: 0.63 mg Ondansetron HCl (Zofran Inj) 4 mg IVP Q6H PRN PRN Reason: Nausea/Vomiting Last Admin: 01/01/18 23:25 Dose: 4 mg Vitamin A (Vitamin A & D Oint Ud Foilpak) 1 ea TOP Q8H [facility] Last Admin: 01/04/18 06:40 Dose: 1 ea - Labs Labs: 01/04/18 06:00 01/04/18 06:00 PT 11.4 SECONDS (9.4-12.5) 12/25/17 21:05 INR 1.00 (0.93-1.08) 12/25/17 21:05 Attending/Attestation - Attestation I have personally seen and examined this patient.: Yes I have fully participated in the care of the patient.: Yes I have reviewed all pertinent clinical information, including history, physical exam and plan: Yes
[2018-01-03] MEDS: Meropenem 500 MG in Sodium Chloride 0.9% 50 ML IVPB SCH ×2 (09:26→21:34)
[2018-01-03] MEDS ORDERED: Sodium Chloride 0.9% 1,000 ML IV SCH (09:45)
[2018-01-03] MEDS: Linezolid 600 mg in D5W 300 ml 600 MG/300 ML BAG IVPB SCH ×2 (10:05→21:34)
--- NOTE | 2018-01-03 12:16 | CP.PCM.PN ---
Subjective - Date & Time of Evaluation Date of Evaluation: 01/03/18 Time of Evaluation: 10:35 - Subjective Subjective: Patient is now more awake, no fevers, not in distress. Comfortable in bed. Objective - Vital Signs/Intake and Output Vital Signs (last 24 hours): Temp Pulse Resp BP Pulse Ox 98.0 F 99 H 20 164/86 H 97 01/03/18 00:00 01/03/18 02:00 01/03/18 00:00 01/03/18 06:45 01/03/18 00:00 Intake and Output: 01/03/18 01/03/18 06:59 18:59 Intake Total 120 Output Total 800 Balance -680 - Medications Medications: Current Medications Amlodipine Besylate (Norvasc) 10 mg PO DAILY [facility] Last Admin: 01/02/18 10:53 Dose: Not Given Aspirin (Aspirin Chewable) 81 mg PO DAILY [facility] Last Admin: 01/02/18 10:53 Dose: Not Given Atorvastatin Calcium (Lipitor) 20 mg PO DIN [facility] Last Admin: 01/02/18 16:14 Dose: Not Given Doxycycline Hyclate (Doryx) 100 mg PO Q12 [facility] PRN Reason: Protocol Last Admin: 01/02/18 22:00 Dose: Not Given Hydralazine HCl (Apresoline) 50 mg PO BID [facility] Last Admin: 01/02/18 17:23 Dose: Not Given Hydralazine HCl (Apresoline) 10 mg IVP Q6 [facility] Last Admin: 01/03/18 06:45 Dose: 10 mg Levalbuterol HCl (Xopenex) 0.63 mg IH [id number] [facility] Last Admin: 01/03/18 03:15 Dose: 0.63 mg Ondansetron HCl (Zofran Inj) 4 mg IVP Q6H PRN PRN Reason: Nausea/Vomiting Last Admin: 01/01/18 23:25 Dose: 4 mg Vitamin A (Vitamin A & D Oint Ud Foilpak) 1 ea TOP Q8H [facility] Last Admin: 01/03/18 06:45 Dose: 1 ea - Labs Labs: 01/03/18 07:00 01/02/18 05:30 PT 11.4 SECONDS (9.4-12.5) 12/25/17 21:05 INR 1.00 (0.93-1.08) 12/25/17 21:05 - Constitutional Appears: Chronically Ill - Head Exam Head Exam: NORMAL INSPECTION - ENT Exam ENT Exam: Mucous Membranes Moist - Neck Exam Neck Exam: absent: Meningismus - Respiratory Exam Respiratory Exam: Decreased Breath Sounds - Cardiovascular Exam Cardiovascular Exam: +S1, +S2 - GI/Abdominal Exam GI & Abdominal Exam: Soft. absent: Tenderness Assessment and Plan - Assessment and Plan (Free Text) Plan: Assessment peripheral vascular disease with necrotic toes and ulceration bilaterally, S/P revascularization acute encephalopathy, etiology to be determined, now resolved history of Right foot cellulitis with right hallux gangrene Peripheral vascular disease HTN Plancycline continue doxycycline and changed Zosyn to Merrem and added Zyvox (day 10); as per Podiatry, no plans for surgery; would recommend 10-14 days of antibiotics for the foot, 5-7 days of antibiotics for the pneumonia (day 2 today) reviewed CT chest which is suggesting pneumonia - current antibiotics should be covering it and patient has not developed fevers reviewed brain MRI which is not showing acute CVA - follow up Neurology evaluation repeat blood cx are negative will continue to monitor clinically
--- NOTE | 2018-01-03 12:44 | PN ---
SUBJECTIVE: The patient was seen and examined at bedside on the remote telemetry henson. No acute events overnight. The patient remains afebrile and hemodynamically stable. He has been evaluated by Dr. Wright and Neurology team for his altered mentation and underwent an MRI of the brain which was unremarkable. This morning he is awake and alert but still somewhat confused and denies any complaints when asked. PHYSICAL EXAMINATION VITAL SIGNS: Temperature 98.5, pulse 101, blood pressure 164/86, respiratory rate 20, oxygen saturation 96% on room air. GENERAL: Frail elderly man, appearing stated age, lying in bed, in no apparent distress. HEENT: PERRL. EOMI. No scleral icterus. Conjunctival pallor is noted. NECK: No JVD. LUNGS: Scattered wheeze with few rhonchi. CARDIOVASCULAR: Regular rate and rhythm. Normal S1 and S2. ABDOMEN: Normoactive bowel sounds. Soft, nontender, nondistended. EXTREMITIES: No edema. NEUROLOGIC: Awake and alert, oriented to person and place. Able to move all extremities. LABORATORY DATA: WBC 12.8 with 79% neutrophils, hemoglobin 9.7, hematocrit 31, platelets 283. Sodium of 145, potassium of 3.8, chloride 113, bicarb 19, BUN 39, creatinine 4.2 , glucose 110. ASSESSMENT: The patient is a 77 year old man with a past medical history of hypertension, severe PVD s/p IR revascularization, CKD stage IV and anemia of chronic disease who was admitted for management of cellulitis and dry gangrene of the right first toe and whose hospital course was complicated by aspiration pneumonia and altered mental status likely secondary to toxic metabolic encephalopathy. PLAN: 1. Altered mental status, etiology likely secondary to toxic metabolic encephalopathy. Neuroimaging imaging studies reviewed and demonstrated no acute pathology. Input from Dr. Wright noted and greatly appreciated. Continue with frequent neuro checks. Continue with therapy to optimize underlying medical conditions. 2. Aspiration pneumonia. The patient remains n.p.o. pending repeat speech and swallow evaluation. Input from Dr. Perkins appreciated. Antimicrobials have been adjusted to Meropenem 500 mg IV every 12 hours and linezolid 600 mg IV every 12 hours. Continue to monitor for fever and leukocytosis. Continue with supplemental oxygen and bronchodilators as needed. 3. Cellulitis with dry gangrene of the right first toe. Continue care as per the Podiatry team. Continue with antimicrobials as above. 4. Severe PVD s/p IR revascularization. Vascular studies demonstrate patent stents. Continue medical therapy consisting of Lipitor 20 mg p.o. daily and Aspirin 81 mg p.o. daily. 5. CKD stage IV. Renal function remains at the patient's baseline. 6. Hypertension. Continue Amlodipine 10 mg p.o. daily and Hydralazine 50 mg p.o. b.i.d. 7. Anemia of chronic disease. Hemoglobin at baseline of 8-9. 8. Prophylaxis. GI prophylaxis is not indicated as the patient is eating. We will start heparin 5000 units SC every 8 hours for DVT prophylaxis. CODE STATUS: Full code. Tommie Pedraza MD [facility]
[2018-01-04] MEDS: Levalbuterol 0.63 MG/3 ML Inhal Soln UD IH SCH ×4 (01:26→19:37)
[2018-01-04] MEDS: Vitamins A & D Oint UD Foilpak TOP SCH ×3 (06:40→21:51)
[2018-01-04 06:53] LABS: BASO # 0.03 K/mm3 (0.0-2.0); BASO % 0.2 % (0.0-3.0); EOS # 0.1 (0.0-0.7); EOS % 0.5 % (1.5-5.0); GRAN # 11.1 (1.4-6.5); GRAN % 78.2 % (50.0-68.0); HEMOGLOBIN 9.7 g/dL (14.0-18.0); LYMPH # 1.5 (1.2-3.4); LYMPH % 10.5 % (22.0-35.0); MEAN CELL VOLUME 90.4 fl (80.0-105.0); MEAN CORPUSCULAR HEMOGLOBIN 28.4 pg (25.0-35.0); MEAN CORPUSCULAR HGB CONC 31.4 g/dl (31.0-37.0); MEAN PLATELET VOLUME 9.6 fl (7.0-11.0); MONO # 1.5 (0.1-0.6); MONO % 10.6 % (1.0-6.0); RBC 3.42 10^6/uL (3.5-6.1); RED CELL DISTRIBUTION WIDTH 15.6 % (11.5-14.5); WHITE BLOOD COUNT 14.2 10^3/ul (4.5-11.0)
[2018-01-04 07:38] LABS: ALB/GLOB RATIO 0.9 (1.1-1.8)
[2018-01-04] MEDS: Meropenem 500 MG in Sodium Chloride 0.9% 50 ML IVPB SCH ×2 (09:43→21:49)
[2018-01-04] MEDS: Linezolid 600 mg in D5W 300 ml 600 MG/300 ML BAG IVPB SCH ×2 (10:14→22:49)
--- NOTE | 2018-01-04 12:04 | CP.PCM.PN ---
Subjective - Date & Time of Evaluation Date of Evaluation: 01/04/18 Time of Evaluation: 10:10 - Subjective Subjective: Patient is much more awake, no fevers, not in distress, less pain in the feet. No diarrhea. Objective - Vital Signs/Intake and Output Vital Signs (last 24 hours): Temp Pulse Resp BP Pulse Ox 98.2 F 90 20 162/94 H 97 01/04/18 07:24 01/04/18 07:24 01/04/18 07:24 01/04/18 07:24 01/04/18 07:24 Intake and Output: 01/04/18 01/04/18 06:59 18:59 Intake Total 840 Balance 840 - Medications Medications: Current Medications Amlodipine Besylate (Norvasc) 10 mg PO DAILY [facility] Last Admin: 01/03/18 09:24 Dose: 10 mg Aspirin (Aspirin Chewable) 81 mg PO DAILY [facility] Last Admin: 01/03/18 09:24 Dose: 81 mg Atorvastatin Calcium (Lipitor) 20 mg PO DIN [facility] Last Admin: 01/03/18 18:00 Dose: 20 mg Doxycycline Hyclate (Doryx) 100 mg PO Q12 [facility] PRN Reason: Protocol Last Admin: 01/03/18 21:34 Dose: 100 mg Heparin Sodium (Porcine) (Heparin) 5,000 units SC Q8 [facility] PRN Reason: Protocol Last Admin: 01/04/18 06:01 Dose: 5,000 units Hydralazine HCl (Apresoline) 50 mg PO BID [facility] Last Admin: 01/03/18 18:00 Dose: 50 mg Hydralazine HCl (Apresoline) 10 mg IVP Q6 [facility] Last Admin: 01/04/18 06:39 Dose: 10 mg Meropenem 500 mg/ Sodium (Chloride) 50 mls @ 100 mls/hr IVPB Q12 [facility] PRN Reason: Protocol Stop: 01/10/18 10:01 Last Admin: 01/03/18 21:34 Dose: 100 mls/hr Linezolid (Zyvox 600mg/300ml D5w) 600 mg in 300 mls @ 200 mls/hr IVPB Q12 [facility] PRN Reason: Protocol Stop: 01/10/18 10:01 Last Admin: 01/03/18 21:34 Dose: 200 mls/hr Sodium Chloride (Sodium Chloride 0.9%) 1,000 mls @ 60 mls/hr IV .[id number] [facility] Last Admin: 01/03/18 10:05 Dose: 60 mls/hr Levalbuterol HCl (Xopenex) 0.63 mg IH [id number] [facility] Last Admin: 01/04/18 01:26 Dose: 0.63 mg Ondansetron HCl (Zofran Inj) 4 mg IVP Q6H PRN PRN Reason: Nausea/Vomiting Last Admin: 01/01/18 23:25 Dose: 4 mg Vitamin A (Vitamin A & D Oint Ud Foilpak) 1 ea TOP Q8H [facility] Last Admin: 01/04/18 06:40 Dose: 1 ea - Labs Labs: 01/04/18 06:00 01/04/18 06:00 PT 11.4 SECONDS (9.4-12.5) 12/25/17 21:05 INR 1.00 (0.93-1.08) 12/25/17 21:05 - Constitutional Appears: Chronically Ill - Head Exam Head Exam: NORMAL INSPECTION - ENT Exam ENT Exam: Mucous Membranes Moist - Neck Exam Neck Exam: absent: Lymphadenopathy, Meningismus - Respiratory Exam Respiratory Exam: Decreased Breath Sounds - Cardiovascular Exam Cardiovascular Exam: +S1, +S2 - GI/Abdominal Exam GI & Abdominal Exam: Soft. absent: Tenderness - Extremities Exam Additional comments: right foot with dressings in place Assessment and Plan - Assessment and Plan (Free Text) Plan: Assessment peripheral vascular disease with necrotic toes and ulceration bilaterally, S/P revascularization R/O HCAP acute encephalopathy, etiology to be determined, now resolved history of Right foot cellulitis with right hallux gangrene Peripheral vascular disease HTN Plan continue doxycycline and changed Zosyn to Merrem and added Zyvox (day 11); as per Podiatry, no plans for surgery; would recommend 10-14 days of antibiotics for the foot, 5-7 days of antibiotics for the pneumonia (day 3 today) reviewed CT chest which is suggesting pneumonia - current antibiotics should be covering it and patient has not developed fevers reviewed brain MRI which is not showing acute CVA - reviewed Neurology evaluation repeat blood cx are negative will continue to monitor clinically
--- NOTE | 2018-01-04 12:25 | CP.PCM.PN ---
<Harinder Ocasio - Last Filed: 01/04/18 12:22> Subjective - Date & Time of Evaluation Date of Evaluation: 01/04/18 Time of Evaluation: 12:22 - Subjective Subjective: Podiatry Progress Note - Dr. Irvin/Atul 77 year old male patient seen and evaluated at bedside for bilateral ischemic changes R foot > L foot. Patient appears to be resting comfortably in his bed. Multipodus boot present to bilateral LE. Complains of pain when right foot is touched. No new complains Objective - Vital Signs/Intake and Output Vital Signs (last 24 hours): Temp Pulse Resp BP Pulse Ox 98.2 F 79 20 149/79 97 01/04/18 07:24 01/04/18 12:04 01/04/18 07:24 01/04/18 12:04 01/04/18 07:24 Intake and Output: 01/04/18 01/04/18 06:59 18:59 Intake Total 840 Balance 840 - Medications Medications: Current Medications Amlodipine Besylate (Norvasc) 10 mg PO DAILY [facility] Last Admin: 01/04/18 09:42 Dose: 10 mg Aspirin (Aspirin Chewable) 81 mg PO DAILY [facility] Last Admin: 01/04/18 09:42 Dose: 81 mg Atorvastatin Calcium (Lipitor) 20 mg PO DIN [facility] Last Admin: 01/03/18 18:00 Dose: 20 mg Doxycycline Hyclate (Doryx) 100 mg PO Q12 [facility] PRN Reason: Protocol Last Admin: 01/04/18 09:41 Dose: 100 mg Heparin Sodium (Porcine) (Heparin) 5,000 units SC Q8 [facility] PRN Reason: Protocol Last Admin: 01/04/18 06:01 Dose: 5,000 units Hydralazine HCl (Apresoline) 10 mg IVP Q6 [facility] Last Admin: 01/04/18 12:04 Dose: 10 mg Hydralazine HCl (Apresoline) 100 mg PO BID [facility] Last Admin: 01/04/18 09:41 Dose: 100 mg Meropenem 500 mg/ Sodium (Chloride) 50 mls @ 100 mls/hr IVPB Q12 [facility] PRN Reason: Protocol Stop: 01/10/18 10:01 Last Admin: 01/04/18 09:43 Dose: 100 mls/hr Linezolid (Zyvox 600mg/300ml D5w) 600 mg in 300 mls @ 200 mls/hr IVPB Q12 [facility] PRN Reason: Protocol Stop: 01/10/18 10:01 Last Admin: 01/04/18 10:14 Dose: 200 mls/hr Potassium Chloride (Potassium Chloride 10 Meq/100 Ml) 10 meq in 100 mls @ 50 mls/hr IVPB Q2H [facility] Stop: 01/04/18 13:29 Last Admin: 01/04/18 11:53 Dose: 50 mls/hr Levalbuterol HCl (Xopenex) 0.63 mg IH [id number] [facility] Last Admin: 01/04/18 08:15 Dose: 0.63 mg Ondansetron HCl (Zofran Inj) 4 mg IVP Q6H PRN PRN Reason: Nausea/Vomiting Last Admin: 01/01/18 23:25 Dose: 4 mg Vitamin A (Vitamin A & D Oint Ud Foilpak) 1 ea TOP Q8H [facility] Last Admin: 01/04/18 06:40 Dose: 1 ea - Labs Labs: 01/04/18 06:00 01/04/18 06:00 PT 11.4 SECONDS (9.4-12.5) 12/25/17 21:05 INR 1.00 (0.93-1.08) 12/25/17 21:05 - Constitutional Appears: Well, Non-toxic, No Acute Distress - Extremities Exam Additional comments: right foot is warm decreased capillary refill - wound on hallux small with no sinus tract or undermining; minimal drainage; 4th and 5th toes with resolving gangrene the remainder of the toes have some discoloration of toes but no gonzález gangrene is noted; the left foot is cool but less painful than the right no open wounds noted on the left - Neurological Exam Neurological Exam: Alert, Awake, Oriented x3 - Psychiatric Exam Psychiatric exam: Normal Affect, Normal Mood Assessment and Plan - Assessment and Plan (Free Text) Assessment: 77 year old male with PVD s/p successful vascular intervention Plan: Patient examined and evaluated Discussed in details with attending Dr. Irvin Afebrile, WBC 14.2 Duplex RLE arterial US- Normal velocities are noted in the right SFA. No significant stenoses were noted IMPRESSION: Patent right external iliac stent and SFA R CAMILA IMPRESSION: 1. Borderline abnormal right CAMILA. Improved from previous study 2. Left SFA and tibial disease Vascular- no additional vascular intervention during this time No podiatric surgical intervention at this time Continue local wound care - xeroform, DSD; A&D ointment to feet daily Multipodus boots must be worn at all times while in bed Patient will benefit to a long-term facility for physical therapy Podiatry will continue to follow in house <Sylwia Irvin - Last Filed: 01/05/18 13:46> Objective - Vital Signs/Intake and Output Vital Signs (last 24 hours): Temp Pulse Resp BP Pulse Ox 97.5 F L 69 20 147/87 97 01/05/18 07:46 01/05/18 07:46 01/05/18 07:46 01/05/18 11:27 01/05/18 07:46 Intake and Output: 01/05/18 01/05/18 06:59 18:59 Intake Total 1500 Balance 1500 - Medications Medications: Current Medications Amlodipine Besylate (Norvasc) 10 mg PO DAILY [facility] Last Admin: 01/05/18 09:46 Dose: 10 mg Aspirin (Aspirin Chewable) 81 mg PO DAILY [facility] Last Admin: 01/05/18 09:46 Dose: 81 mg Atorvastatin Calcium (Lipitor) 20 mg PO DIN [facility] Last Admin: 01/04/18 17:21 Dose: 20 mg Doxycycline Hyclate (Doryx) 100 mg PO Q12 [facility] PRN Reason: Protocol Last Admin: 01/05/18 09:46 Dose: 100 mg Heparin Sodium (Porcine) (Heparin) 5,000 units SC Q8 [facility] PRN Reason: Protocol Last Admin: 01/05/18 05:13 Dose: 5,000 units Hydralazine HCl (Apresoline) 10 mg IVP Q6 [facility] Last Admin: 01/05/18 11:27 Dose: Not Given Hydralazine HCl (Apresoline) 100 mg PO BID [facility] Last Admin: 01/04/18 17:24 Dose: 100 mg Meropenem 500 mg/ Sodium (Chloride) 50 mls @ 100 mls/hr IVPB Q12 [facility] PRN Reason: Protocol Stop: 01/10/18 10:01 Last Admin: 01/05/18 09:47 Dose: 100 mls/hr Linezolid (Zyvox 600mg/300ml D5w) 600 mg in 300 mls @ 200 mls/hr IVPB Q12 [facility] PRN Reason: Protocol Stop: 01/10/18 10:01 Last Admin: 01/05/18 09:45 Dose: 200 mls/hr Levalbuterol HCl (Xopenex) 0.63 mg IH [id number] [facility] Last Admin: 01/05/18 07:53 Dose: Not Given Ondansetron HCl (Zofran Inj) 4 mg IVP Q6H PRN PRN Reason: Nausea/Vomiting Last Admin: 01/01/18 23:25 Dose: 4 mg Vitamin A (Vitamin A & D Oint Ud Foilpak) 1 ea TOP Q8H [facility] Last Admin: 01/04/18 21:51 Dose: 1 ea - Labs Labs: 01/05/18 05:45 01/05/18 05:45 PT 11.4 SECONDS (9.4-12.5) 12/25/17 21:05 INR 1.00 (0.93-1.08) 12/25/17 21:05 Attending/Attestation - Attestation I have personally seen and examined this patient.: Yes I have fully participated in the care of the patient.: Yes I have reviewed all pertinent clinical information, including history, physical exam and plan: Yes
--- NOTE | 2018-01-04 12:55 | PN ---
SUBJECTIVE: The patient was seen and examined at bedside on the remote telemetry henson. Overnight he was noted to have 7 beats of nonsustained VTach during which time he was completely asymptomatic. A troponin level was obtained which was negative. This morning he feels ok and appears much more awake and alert and offers no complaints. OBJECTIVE VITAL SIGNS: T 98.2, P 90, BP 141/90, RR 20, oxygen saturation 97% on 2 liters of nasal cannula. GENERAL: Frail elderly man, appearing his stated age, lying in bed in no apparent distress. HEENT: PERRL. EOMI. No scleral icterus. Conjunctival pallor is noted. NECK: No JVD. LUNGS: Decreased breath sounds at the bases with a few scattered rhonchi. CARDIOVASCULAR: Regular rate and rhythm. Normal S1 and S2. ABDOMEN: Normoactive bowel sounds. Soft, nontender, nondistended. EXTREMITIES: No edema. NEUROLOGIC: Awake and alert, oriented to person and place. Moving all extremities. LABORATORY DATA: WBC 14.2, hemoglobin 9.7, hematocrit 31, platelets 249. Sodium of 146, potassium of 3.3, chloride 112, bicarb 21, BUN 38, creatinine 3.8 , glucose 120. ASSESSMENT: The patient is a 77 year old man with a past medical history of hypertension, severe PVD s/p IR revascularization, CKD stage IV and anemia of chronic disease who was admitted for management of cellulitis and dry gangrene of the right first toe and whose hospital course was complicated by aspiration pneumonia and altered mental status secondary to toxic metabolic encephalopathy. PLAN 1. Altered mental status, etiology likely secondary to toxic metabolic encephalopathy, resolving. Neuroimaging studies demonstrate no acute pathology. Input from Dr. Wright noted and appreciated. Continue with frequent neuro checks. Continue with therapy to optimize underlying medical conditions. 2. Aspiration pneumonia. Input from Speech/Swallow therapist appreciated and patient started on a pureed diet. Input from Dr. Perkins appreciated. Continue with current antimicrobials. Continue with supplemental oxygen and bronchodilators as needed. 3. Cellulitis with dry gangrene of the right first toe. Continue care as per Podiatry team. Continue with antimicrobials as above. 4. Severe PVD s/p IR revascularization. Vascular studies demonstrate patent stents. Continue medical therapy consisting of Lipitor 20 mg p.o. daily and Aspirin 81 mg p.o. daily. 5. CKD stage IV. Renal function remains at baseline. 6. Hypertension. Continue Amlodipine 10 mg p.o. daily and increase Hydralazine to Hydralazine 100 mg p.o. b.i.d. 7. Anemia of chronic disease. Hemoglobin at baseline of 8-9. 8. Prophylaxis. GI prophylaxis is not indicated as the patient is eating. Continue with heparin for DVT prophylaxis. CODE STATUS: Full code. Tommie Pedraza MD [facility]
[2018-01-05] MEDS ORDERED: Pneumococcal 23-Valent Vaccine IM ONE (00:39)
[2018-01-05] MEDS: Levalbuterol 0.63 MG/3 ML Inhal Soln UD IH SCH ×5 (02:24→19:24)
[2018-01-05 06:42] LABS: BASO # 0.02 K/mm3 (0.0-2.0); BASO % 0.1 % (0.0-3.0); EOS # 0.2 (0.0-0.7); EOS % 1.2 % (1.5-5.0); GRAN # 10.34 (1.4-6.5); GRAN % 73.5 % (50.0-68.0); HEMOGLOBIN 9.1 g/dL (14.0-18.0); LYMPH % 14.4 % (22.0-35.0); MEAN CORPUSCULAR HEMOGLOBIN 28.5 pg (25.0-35.0); MEAN CORPUSCULAR HGB CONC 31.7 g/dl (31.0-37.0); MEAN PLATELET VOLUME 9.7 fl (7.0-11.0); MONO # 1.5 (0.1-0.6); MONO % 10.8 % (1.0-6.0); RBC 3.19 10^6/uL (3.5-6.1); RED CELL DISTRIBUTION WIDTH 15.5 % (11.5-14.5); WHITE BLOOD COUNT 14.1 10^3/ul (4.5-11.0)
[2018-01-05 07:34] LABS: ALB/GLOB RATIO 0.8 (1.1-1.8); ALBUMIN 2.9 g/dL (3.0-4.8)
--- NOTE | 2018-01-05 09:00 | PN ---
SUBJECTIVE: The patient was seen and examined at bedside on the remote telemetry henson. No acute events overnight. He remains afebrile and hemodynamically stable. The patient has been reevaluated by Speech/Swallow therapist and new dietary recommendations have been made. Otherwise he is demonstrating gradual improvement in his mentation and offers no complaints. PHYSICAL EXAMINATION VITAL SIGNS: Temperature 97.5, pulse 69, blood pressure 161/86, respiratory rate 20, oxygen saturation 97% on room air. GENERAL: Frail elderly man, appearing his stated age, lying in bed in no apparent distress. HEENT: PERRL. EOMI. No scleral icterus. Conjunctival pallor is noted. NECK: No JVD. LUNGS: Decreased breath sounds at the bases with few scattered rhonchi. CARDIOVASCULAR: Regular rate and rhythm. Normal S1 and S2. ABDOMEN: Normoactive bowel sounds. Soft, nontender, nondistended. EXTREMITIES: No edema. NEUROLOGIC: Awake and alert, oriented to person and place. Moving all extremities. LABORATORY DATA: WBC 14 with 74% neutrophils, hemoglobin 9, hematocrit 28, platelets 229. Sodium of 142, potassium of 3.6, chloride 110, bicarbonate 23, BUN 34, creatinine 3.2, glucose 105. ASSESSMENT: The patient is a 77 year old man with a past medical history of hypertension, severe PVD s/p IR revascularization, CKD stage IV and anemia of chronic disease who was admitted for management of cellulitis and dry gangrene of the right first toe and whose hospital course was complicated by aspiration pneumonia and altered mental status secondary to toxic metabolic encephalopathy. PLAN: 1. Altered mental status, etiology likely secondary to toxic metabolic encephalopathy, resolving. Neuroimaging studies demonstrated no acute pathology. Input from Dr. Wright noted and appreciated. Continue to optimize underlying medical conditions. 2. Aspiration pneumonia. Input from speech/swallow therapist appreciated and diet has been changed as per recommendations. Input from Dr. Perkins appreciated. Continue with current antimicrobials. Continue with supplemental oxygen and bronchodilators as needed. Continue with aspiration precautions. 3. Cellulitis with dry gangrene of the right first toe, improving. Input from the Podiatric team greatly appreciated. Continue with local wound care and antimicrobials. 4. Severe PVD s/p IR revascularization. Vascular studies demonstrate patent stents. Continue medical therapy consisting of Lipitor 20 mg p.o. daily and Aspirin 81 mg p.o. daily. 5. CKD, stage IV. Renal function remains at baseline. 6. Hypertension. Continue Amlodipine 10 mg p.o. daily and Hydralazine 100 mg p.o. b.i.d. 7. Anemia of chronic disease. Hemoglobin at baseline of 8-9. 8. Prophylaxis. GI prophylaxis is not indicated as the patient is eating. Continue with heparin for DVT prophylaxis. CODE STATUS: Full code. Tommie Pedraza MD [facility]
[2018-01-05] MEDS: Linezolid 600 mg in D5W 300 ml 600 MG/300 ML BAG IVPB SCH ×2 (09:45→21:56)
[2018-01-05] MEDS: Meropenem 500 MG in Sodium Chloride 0.9% 50 ML IVPB SCH ×2 (09:47→21:57)
--- NOTE | 2018-01-05 11:10 | CP.PCM.PN ---
Subjective - Date & Time of Evaluation Date of Evaluation: 01/05/18 Time of Evaluation: 08:55 - Subjective Subjective: Comfortable, breathing well at rest, no fevers, no diarrhea, pain in the feet is improving. Objective - Vital Signs/Intake and Output Vital Signs (last 24 hours): Temp Pulse Resp BP Pulse Ox 97.5 F L 69 20 161/86 H 97 01/05/18 07:46 01/05/18 07:46 01/05/18 07:46 01/05/18 07:46 01/05/18 07:46 Intake and Output: 01/05/18 01/05/18 06:59 18:59 Intake Total 1500 Balance 1500 - Medications Medications: Current Medications Amlodipine Besylate (Norvasc) 10 mg PO DAILY [facility] Last Admin: 01/04/18 09:42 Dose: 10 mg Aspirin (Aspirin Chewable) 81 mg PO DAILY [facility] Last Admin: 01/04/18 09:42 Dose: 81 mg Atorvastatin Calcium (Lipitor) 20 mg PO DIN [facility] Last Admin: 01/04/18 17:21 Dose: 20 mg Doxycycline Hyclate (Doryx) 100 mg PO Q12 [facility] PRN Reason: Protocol Last Admin: 01/04/18 21:49 Dose: 100 mg Heparin Sodium (Porcine) (Heparin) 5,000 units SC Q8 [facility] PRN Reason: Protocol Last Admin: 01/05/18 05:13 Dose: 5,000 units Hydralazine HCl (Apresoline) 10 mg IVP Q6 [facility] Last Admin: 01/05/18 05:12 Dose: 10 mg Hydralazine HCl (Apresoline) 100 mg PO BID [facility] Last Admin: 01/04/18 17:24 Dose: 100 mg Meropenem 500 mg/ Sodium (Chloride) 50 mls @ 100 mls/hr IVPB Q12 [facility] PRN Reason: Protocol Stop: 01/10/18 10:01 Last Admin: 01/04/18 21:49 Dose: 100 mls/hr Linezolid (Zyvox 600mg/300ml D5w) 600 mg in 300 mls @ 200 mls/hr IVPB Q12 [facility] PRN Reason: Protocol Stop: 01/10/18 10:01 Last Admin: 01/04/18 22:49 Dose: 200 mls/hr Levalbuterol HCl (Xopenex) 0.63 mg IH [id number] [facility] Last Admin: 01/05/18 07:53 Dose: Not Given Ondansetron HCl (Zofran Inj) 4 mg IVP Q6H [facility] PRN Reason: Nausea/Vomiting Last Admin: 01/01/18 23:25 Dose: 4 mg Vitamin A (Vitamin A & D Oint Ud Foilpak) 1 ea TOP Q8H [facility] Last Admin: 01/04/18 21:51 Dose: 1 ea - Labs Labs: 01/05/18 05:45 01/05/18 05:45 PT 11.4 SECONDS (9.4-12.5) 12/25/17 21:05 INR 1.00 (0.93-1.08) 12/25/17 21:05 - Constitutional Appears: Chronically Ill - Head Exam Head Exam: NORMAL INSPECTION - ENT Exam ENT Exam: Mucous Membranes Moist - Neck Exam Neck Exam: absent: Meningismus - Respiratory Exam Respiratory Exam: Decreased Breath Sounds - Cardiovascular Exam Cardiovascular Exam: +S1, +S2 - GI/Abdominal Exam GI & Abdominal Exam: Soft. absent: Tenderness - Extremities Exam Additional comments: right foot with dressings in place Assessment and Plan - Assessment and Plan (Free Text) Plan: Assessment peripheral vascular disease with necrotic toes and ulceration bilaterally, S/P revascularization R/O HCAP acute encephalopathy, etiology to be determined, now resolved history of Right foot cellulitis with right hallux gangrene Peripheral vascular disease HTN Plan continue doxycycline and changed Zosyn to Merrem and added Zyvox (day 12); as per Podiatry, no plans for surgery; would recommend 10-14 days of antibiotics for the foot, 5-7 days of antibiotics for the pneumonia (day 4 today) reviewed CT chest which is suggesting pneumonia - current antibiotics should be covering it and patient has not developed fevers reviewed brain MRI which is not showing acute CVA - reviewed Neurology evaluation repeat blood cx are negative will continue to monitor clinically
[2018-01-05] MEDS: Vitamins A & D Oint UD Foilpak TOP SCH ×2 (14:22→21:56)
[2018-01-05] MEDS ORDERED: Vitamin A/D oint 60G TP PRN (14:27)
--- NOTE | 2018-01-05 14:29 | CP.PCM.PN ---
Subjective - Date & Time of Evaluation Date of Evaluation: 01/05/18 Time of Evaluation: 14:24 - Subjective Subjective: Podiatry Progress Note - Dr. Irvin/Atul 77 year old male patient seen and evaluated at bedside for bilateral ischemic changes R foot > L foot. Patient sleeping at time of visit. Multipodus boots present to bilateral LE with dressing to right hallux clean/dry/intact. Patient reports continued moderate ischemic pain to his digits. On aspiration precautions. Offers no other complaints. Objective - Vital Signs/Intake and Output Vital Signs (last 24 hours): Temp Pulse Resp BP Pulse Ox 97.5 F L 69 20 147/87 97 01/05/18 07:46 01/05/18 07:46 01/05/18 07:46 01/05/18 11:27 01/05/18 07:46 Intake and Output: 01/05/18 01/05/18 06:59 18:59 Intake Total 1500 Balance 1500 - Medications Medications: Current Medications Amlodipine Besylate (Norvasc) 10 mg PO DAILY [facility] Last Admin: 01/05/18 09:46 Dose: 10 mg Aspirin (Aspirin Chewable) 81 mg PO DAILY [facility] Last Admin: 01/05/18 09:46 Dose: 81 mg Atorvastatin Calcium (Lipitor) 20 mg PO DIN [facility] Last Admin: 01/04/18 17:21 Dose: 20 mg Doxycycline Hyclate (Doryx) 100 mg PO Q12 [facility] PRN Reason: Protocol Last Admin: 01/05/18 09:46 Dose: 100 mg Heparin Sodium (Porcine) (Heparin) 5,000 units SC Q8 [facility] PRN Reason: Protocol Last Admin: 01/05/18 05:13 Dose: 5,000 units Hydralazine HCl (Apresoline) 10 mg IVP Q6 [facility] Last Admin: 01/05/18 11:27 Dose: Not Given Hydralazine HCl (Apresoline) 100 mg PO BID [facility] Last Admin: 01/04/18 17:24 Dose: 100 mg Meropenem 500 mg/ Sodium (Chloride) 50 mls @ 100 mls/hr IVPB Q12 [facility] PRN Reason: Protocol Stop: 01/10/18 10:01 Last Admin: 01/05/18 09:47 Dose: 100 mls/hr Linezolid (Zyvox 600mg/300ml D5w) 600 mg in 300 mls @ 200 mls/hr IVPB Q12 [facility] PRN Reason: Protocol Stop: 01/10/18 10:01 Last Admin: 01/05/18 09:45 Dose: 200 mls/hr Levalbuterol HCl (Xopenex) 0.63 mg IH [id number] [facility] Last Admin: 01/05/18 13:51 Dose: Not Given Ondansetron HCl (Zofran Inj) 4 mg IVP Q6H [facility] PRN Reason: Nausea/Vomiting Last Admin: 01/01/18 23:25 Dose: 4 mg Vitamin A (Vitamin A & D Oint Ud Foilpak) 1 ea TOP Q8H [facility] Last Admin: 01/04/18 21:51 Dose: 1 ea - Labs Labs: 01/05/18 05:45 01/05/18 05:45 PT 11.4 SECONDS (9.4-12.5) 12/25/17 21:05 INR 1.00 (0.93-1.08) 12/25/17 21:05 - Constitutional Appears: Well, Non-toxic, No Acute Distress - Extremities Exam Additional comments: right foot is warm decreased capillary refill - wound on hallux small with no sinus tract or undermining with overlying eschar; minimal drainage; 4th and 5th toes with resolving gangrene the remainder of the toes have some discoloration of toes but no gonzález gangrene is noted, eschar noted to distal aspect of 4th digit loosened but unable to remove secondary to pain; the left foot is cool but less painful than the right no open wounds noted on the left - Neurological Exam Neurological Exam: Alert, Awake, Oriented x3 - Psychiatric Exam Psychiatric exam: Normal Affect, Normal Mood Assessment and Plan - Assessment and Plan (Free Text) Assessment: 77 year old male with PVD s/p successful vascular intervention Plan: Patient examined and evaluated alongside attending Dr. Irvin Afebrile, WBC 14.1 Duplex RLE arterial US- Normal velocities are noted in the right SFA. No significant stenoses were noted IMPRESSION: Patent right external iliac stent and SFA R CAMILA IMPRESSION: 1. Borderline abnormal right CAMILA. Improved from previous study 2. Left SFA and tibial disease Vascular- no additional vascular intervention during this time No podiatric surgical intervention at this time Continue local wound care - xeroform, DSD to hallux; A&D ointment to feet daily -Attempted to remove eschar noted at distal lesser digits of right foot however pt refusing secondary to pain; will continue to monitor Multipodus boots must be worn at all times while in bed Patient will benefit to a long-term facility for physical therapy Podiatry will follow
[2018-01-05] MEDS ORDERED: Vitamins A & D Oint UD Foilpak TOP PRN (14:33)
[2018-01-06] MEDS: Levalbuterol 0.63 MG/3 ML Inhal Soln UD IH SCH ×4 (01:55→19:40)
[2018-01-06] MEDS: Vitamins A & D Oint UD Foilpak TOP SCH ×3 (06:34→22:33)
[2018-01-06 08:16] LABS: BASO # 0.02 K/mm3 (0.0-2.0); BASO % 0.1 % (0.0-3.0); EOS # 0.3 (0.0-0.7); EOS % 2.1 % (1.5-5.0); GRAN # 9.86 (1.4-6.5); GRAN % 72.3 % (50.0-68.0); HEMOGLOBIN 9.4 g/dL (14.0-18.0); LYMPH # 1.8 (1.2-3.4); LYMPH % 13.3 % (22.0-35.0); MEAN CELL VOLUME 87.7 fl (80.0-105.0); MEAN CORPUSCULAR HEMOGLOBIN 28.9 pg (25.0-35.0); MEAN PLATELET VOLUME 9.5 fl (7.0-11.0); MONO # 1.7 (0.1-0.6); MONO % 12.2 % (1.0-6.0); RBC 3.25 10^6/uL (3.5-6.1); RED CELL DISTRIBUTION WIDTH 14.9 % (11.5-14.5); WHITE BLOOD COUNT 13.7 10^3/ul (4.5-11.0)
[2018-01-06 08:32] LABS: ALB/GLOB RATIO 0.9 (1.1-1.8); ALBUMIN 2.7 g/dL (3.0-4.8); CALCIUM 8.3 mg/dL (8.4-10.5)
[2018-01-06] MEDS: Linezolid 600 mg in D5W 300 ml 600 MG/300 ML BAG IVPB SCH ×2 (09:11→22:54)
[2018-01-06] MEDS: Meropenem 500 MG in Sodium Chloride 0.9% 50 ML IVPB SCH ×2 (09:12→22:34)
--- NOTE | 2018-01-06 10:21 | PN ---
SUBJECTIVE: The patient was seen and examined on the remote telemetry henson. No acute events overnight. He remains afebrile and hemodynamically stable. The patient has again been reevaluated by Speech/Swallow therapist and his diet has been adjusted as per recommendations. He is continuing to demonstrate improvement in his neurological status and appears to be at his baseline mentation. There have been no further episodes of confusion overnight. At present we are awaiting completion of his IV antibiotics prior to transfer to a subacute rehab facility. OBJECTIVE VITAL SIGNS: Temperature 97.7, pulse 83, blood pressure 165/87, respiratory rate 19, oxygen saturation 97% on room air. GENERAL: Frail elderly man, appearing his stated age, lying in bed in no apparent distress. HEENT: PERRL. EOMI. No scleral icterus. Conjunctival pallor is noted. NECK: No JVD. LUNGS: Decreased breath sounds at the bases with a few scattered rhonchi. CARDIOVASCULAR: Regular rate and rhythm. Normal S1 and S2. ABDOMEN: Normoactive bowel sounds. Soft, nontender, and nondistended. EXTREMITIES: No edema. Right foot with dressing in place. NEUROLOGIC: Awake, alert and oriented x3. No focal motor deficits. LABORATORY DATA: WBC 13.7 with 72% neutrophils, hemoglobin 9.4, hematocrit 28, platelets 195. Chemistry pending. ASSESSMENT: The patient is a 77 year old man with a past medical history of hypertension, severe PVD s/p IR revascularization, CKD stage IV and anemia of chronic disease who was admitted for management of cellulitis and dry gangrene of the right first toe and whose hospital course was complicated by aspiration pneumonia and altered mental status secondary to toxic metabolic encephalopathy. PLAN 1. Altered mental status, etiology likely secondary to toxic metabolic encephalopathy, resolving. Input from Dr. Wright greatly appreciated and neuroimaging studies demonstrate no acute pathology. Continue with current management. 2. Aspiration pneumonia, resolving. Input from Dr. Perkins greatly appreciated. Continue with current antimicrobials. Continue with supplemental oxygen and bronchodilators as needed. Continue with aspiration precautions. 3. Cellulitis with dry gangrene of the right first toe, improving. MRI negative for osteomyelitis. Continue with care as per the Podiatric team. Continue with local wound care and antimicrobials. 4. Severe PVD s/p IR revascularization. Vascular studies demonstrate patent stents. Continue with medical therapy consisting of Lipitor 20 mg p.o. daily and Aspirin 81 mg p.o. daily. 5. CKD, stage IV. Renal function remains at the patient's baseline. 6. Hypertension. Continue Amlodipine 10 mg p.o. daily and increase Hydralazine to Hydralazine to 100 mg p.o. t.i.d. 7. Anemia of chronic disease. Hemoglobin remains at baseline of 8-9. 8. Prophylaxis. GI prophylaxis is not indicated as the patient is eating. Continue with heparin for DVT prophylaxis. 9. Disposition. Patient remains on IV Linezolid which was cost prohibitive for transfer to [facility]. After completion of this course of antibiotics the patient will be medically stable for transfer. CODE STATUS: Full code. Tommie Pedraza MD [facility]
--- NOTE | 2018-01-06 11:53 | CP.PCM.PN ---
Subjective - Date & Time of Evaluation Date of Evaluation: 01/06/18 Time of Evaluation: 10:05 - Subjective Subjective: Comfortable in bed, no fevers, not in distress, no diarrhea. Objective - Vital Signs/Intake and Output Vital Signs (last 24 hours): Temp Pulse Resp BP Pulse Ox 96.4 F L 72 19 165/87 H 97 01/05/18 16:00 01/05/18 16:00 01/05/18 16:00 01/06/18 05:43 01/05/18 16:00 Intake and Output: 01/05/18 01/06/18 18:59 06:59 Output Total 475 Balance -475 - Medications Medications: Current Medications Amlodipine Besylate (Norvasc) 10 mg PO DAILY [facility] Last Admin: 01/05/18 09:46 Dose: 10 mg Aspirin (Aspirin Chewable) 81 mg PO DAILY [facility] Last Admin: 01/05/18 09:46 Dose: 81 mg Atorvastatin Calcium (Lipitor) 20 mg PO DIN [facility] Last Admin: 01/05/18 17:27 Dose: 20 mg Doxycycline Hyclate (Doryx) 100 mg PO Q12 [facility] PRN Reason: Protocol Last Admin: 01/05/18 21:56 Dose: 100 mg Heparin Sodium (Porcine) (Heparin) 5,000 units SC Q8 [facility] PRN Reason: Protocol Last Admin: 01/06/18 05:44 Dose: 5,000 units Hydralazine HCl (Apresoline) 10 mg IVP Q6 [facility] Last Admin: 01/06/18 05:43 Dose: 10 mg Hydralazine HCl (Apresoline) 100 mg PO BID [facility] Last Admin: 01/05/18 18:11 Dose: 100 mg Meropenem 500 mg/ Sodium (Chloride) 50 mls @ 100 mls/hr IVPB Q12 [facility] PRN Reason: Protocol Stop: 01/10/18 10:01 Last Admin: 01/05/18 21:57 Dose: 100 mls/hr Linezolid (Zyvox 600mg/300ml D5w) 600 mg in 300 mls @ 200 mls/hr IVPB Q12 [facility] PRN Reason: Protocol Stop: 01/10/18 10:01 Last Admin: 01/05/18 21:56 Dose: 200 mls/hr Levalbuterol HCl (Xopenex) 0.63 mg IH [id number] [facility] Last Admin: 01/06/18 01:55 Dose: Not Given Ondansetron HCl (Zofran Inj) 4 mg IVP Q6H PRN PRN Reason: Nausea/Vomiting Last Admin: 01/01/18 23:25 Dose: 4 mg Vitamin A (Vitamin A & D Oint Ud Foilpak) 1 ea TOP Q8H [facility] Last Admin: 01/05/18 21:56 Dose: 1 ea Vitamin A (Vitamin A & D Oint Ud Foilpak) 1 ea TOP Q8 PRN PRN Reason: DRY SKIN - Labs Labs: 01/05/18 05:45 01/05/18 05:45 PT 11.4 SECONDS (9.4-12.5) 12/25/17 21:05 INR 1.00 (0.93-1.08) 12/25/17 21:05 - Constitutional Appears: Chronically Ill - Head Exam Head Exam: NORMAL INSPECTION - ENT Exam ENT Exam: Mucous Membranes Moist - Neck Exam Neck Exam: absent: Lymphadenopathy, Meningismus - Respiratory Exam Respiratory Exam: Decreased Breath Sounds - Cardiovascular Exam Cardiovascular Exam: +S1, +S2 - GI/Abdominal Exam GI & Abdominal Exam: Soft. absent: Tenderness Assessment and Plan - Assessment and Plan (Free Text) Plan: Assessment peripheral vascular disease with necrotic toes and ulceration bilaterally, S/P revascularization consider HCAP, bilateral, clinically improving acute encephalopathy, etiology to be determined, now resolved history of Right foot cellulitis with right hallux gangrene Peripheral vascular disease HTN Plan continue doxycycline and changed Zosyn to Merrem and added Zyvox (day 13); as per Podiatry, no plans for surgery; would recommend 10-14 days of antibiotics for the foot, 5-7 days of antibiotics for the pneumonia (day 4 today) reviewed CT chest which is suggesting pneumonia - current antibiotics should be covering it and patient has not developed fevers reviewed brain MRI which is not showing acute CVA - reviewed Neurology evaluation repeat blood cx are negative will continue to follow clinically
[2018-01-07] MEDS: Levalbuterol 0.63 MG/3 ML Inhal Soln UD IH SCH ×3 (01:33→13:18)
[2018-01-07] MEDS: Vitamins A & D Oint UD Foilpak TOP SCH ×3 (05:28→13:45)
[2018-01-07 07:20] LABS: BASO # 0.02 K/mm3 (0.0-2.0); BASO % 0.2 % (0.0-3.0); EOS # 0.2 (0.0-0.7); EOS % 1.4 % (1.5-5.0); GRAN # 9.64 (1.4-6.5); GRAN % 76.9 % (50.0-68.0); HEMOGLOBIN 9.3 g/dL (14.0-18.0); LYMPH # 1.6 (1.2-3.4); MEAN CELL VOLUME 87.7 fl (80.0-105.0); MEAN CORPUSCULAR HEMOGLOBIN 28.7 pg (25.0-35.0); MEAN CORPUSCULAR HGB CONC 32.7 g/dl (31.0-37.0); MEAN PLATELET VOLUME 9.8 fl (7.0-11.0); MONO # 1.1 (0.1-0.6); MONO % 8.5 % (1.0-6.0); RBC 3.24 10^6/uL (3.5-6.1); RED CELL DISTRIBUTION WIDTH 14.9 % (11.5-14.5); WHITE BLOOD COUNT 12.5 10^3/ul (4.5-11.0)
[2018-01-07 07:53] VITALS: RESP 20; TEMP 97.7; O2SAT 97
[2018-01-07 08:08] LABS: ALB/GLOB RATIO 0.9 (1.1-1.8); ALBUMIN 2.9 g/dL (3.0-4.8); CALCIUM 8.5 mg/dL (8.4-10.5)
[2018-01-07] MEDS: Linezolid 600 mg in D5W 300 ml 600 MG/300 ML BAG IVPB SCH (09:34)
[2018-01-07] MEDS: Meropenem 500 MG in Sodium Chloride 0.9% 50 ML IVPB SCH (09:36)
[2018-01-07 09:38] VITALS: BP 132/70
--- NOTE | 2018-01-07 11:58 | PN ---
SUBJECTIVE: The patient was seen and examined at bedside on the remote telemetry [facility]. No acute events overnight. He remains afebrile and hemodynamically stable. The patient has been accepted to subacute rehab and today is his last day of IV antibiotics. The patient is medically cleared for transfer and is eager for discharge so that he may aggressively participate in physical therapy. Otherwise, he feels okay and offers no complaints. PHYSICAL EXAMINATION VITAL SIGNS: Temperature 97.7, pulse 75, blood pressure 169/76, respiratory rate 20, oxygen saturation 97% on room air. GENERAL: Frail elderly man, appearing his stated age, lying in bed in no apparent distress. HEENT: PERRL. EOMI. No scleral icterus. Conjunctival pallor is noted. NECK: No JVD. LUNGS: Decreased breath sounds at the bases with few scattered rhonchi. CARDIOVASCULAR: Regular rate and rhythm. Normal S1 and S2. ABDOMEN: Normoactive bowel sounds. Soft, nontender, and nondistended. EXTREMITIES: No edema. Right foot with dressing in place. NEUROLOGIC: Awake, alert and oriented x3. No focal motor deficits. LABORATORY DATA: WBC 12.5 with 77% neutrophils, hemoglobin 9, hematocrit 28, platelets 183. Sodium 138, potassium 3.6, chloride 107, bicarb 21, BUN 33, creatinine 3, glucose 96. ASSESSMENT: The patient is a 77 year old man with a past medical history of hypertension, severe PVD s/p IR revascularization, CKD stage IV and anemia of chronic disease who was admitted for management of cellulitis and dry gangrene of the right first toe and whose hospital course was complicated by aspiration pneumonia and altered mental status secondary to toxic metabolic encephalopathy. PLAN: 1. Altered mental status, etiology likely secondary to toxic metabolic encephalopathy, resolving. Input from Dr. Wright greatly appreciated and neuroimaging studies demonstrate no acute pathology. Continue current management. 2. Aspiration pneumonia, resolving. Input from Dr. Perkins greatly appreciated. Continue with current antimicrobials to complete a 5 day course today. Continue with supplemental oxygen and bronchodilators as needed. Continue with aspiration precautions. 3. Cellulitis with dry gangrene of the right first toe, improving. MRI negative for osteomyelitis. Continue with care as per the Podiatric team. The patient to complete a 14 day course of antimicrobials today. 4. Severe PVD s/p IR revascularization. Vascular studies demonstrate patent stents. Continue with medical therapy consisting of Lipitor 20 mg p.o. daily and Aspirin 81 mg p.o. daily. 5. CKD, stage IV. Renal function remains at the patient's baseline. 6. Hypertension. Continue Amlodipine 10 mg p.o. daily and Hydralazine 100 mg p.o. t.i.d. 7. Anemia of chronic disease. Hemoglobin remains at the baseline of 8-9. 8. Prophylaxis. GI prophylaxis is not indicated as the patient is eating. Continue with heparin for DVT prophylaxis. 9. Disposition. The patient medically cleared for discharge to subacute rehab as he is completing his course of antimicrobials today. CODE STATUS: Full code. Tommie Pedraza MD MTDD
--- NOTE | 2018-01-07 12:01 | CP.PCM.PN ---
Subjective - Date & Time of Evaluation Date of Evaluation: 01/07/18 Time of Evaluation: 09:10 - Subjective Subjective: Comfortable in bed, no fevers, no cough currently, no diarrhea. Objective - Vital Signs/Intake and Output Vital Signs (last 24 hours): Temp Pulse Resp BP Pulse Ox 98.6 F 84 19 141/77 98 01/06/18 16:00 01/07/18 05:58 01/06/18 16:00 01/06/18 18:22 01/06/18 16:00 Intake and Output: 01/06/18 01/07/18 18:59 06:59 Intake Total 120 Output Total 300 Balance -180 - Medications Medications: Current Medications Amlodipine Besylate (Norvasc) 10 mg PO DAILY [facility] Last Admin: 01/06/18 09:08 Dose: 10 mg Aspirin (Aspirin Chewable) 81 mg PO DAILY [facility] Last Admin: 01/06/18 09:08 Dose: 81 mg Atorvastatin Calcium (Lipitor) 20 mg PO DIN [facility] Last Admin: 01/06/18 18:22 Dose: 20 mg Doxycycline Hyclate (Doryx) 100 mg PO Q12 [facility] PRN Reason: Protocol Last Admin: 01/06/18 09:08 Dose: 100 mg Heparin Sodium (Porcine) (Heparin) 5,000 units SC Q8 [facility] PRN Reason: Protocol Last Admin: 01/07/18 05:30 Dose: 5,000 units Hydralazine HCl (Apresoline) 100 mg PO TID [facility] Last Admin: 01/06/18 18:22 Dose: 100 mg Meropenem 500 mg/ Sodium (Chloride) 50 mls @ 100 mls/hr IVPB Q12 [facility] PRN Reason: Protocol Stop: 01/10/18 10:01 Last Admin: 01/06/18 22:34 Dose: 100 mls/hr Linezolid (Zyvox 600mg/300ml D5w) 600 mg in 300 mls @ 200 mls/hr IVPB Q12 [facility] PRN Reason: Protocol Stop: 01/10/18 10:01 Last Admin: 01/06/18 22:54 Dose: 200 mls/hr Levalbuterol HCl (Xopenex) 0.63 mg IH [id number] [facility] Last Admin: 01/07/18 01:33 Dose: Not Given Ondansetron HCl (Zofran Inj) 4 mg IVP Q6H PRN PRN Reason: Nausea/Vomiting Last Admin: 01/01/18 23:25 Dose: 4 mg Vitamin A (Vitamin A & D Oint Ud Foilpak) 1 ea TOP Q8H [facility] Last Admin: 01/07/18 05:29 Dose: 1 ea Vitamin A (Vitamin A & D Oint Ud Foilpak) 1 ea TOP Q8 PRN PRN Reason: DRY SKIN Last Admin: 01/06/18 22:35 Dose: 1 ea - Labs Labs: 01/06/18 07:45 01/06/18 07:45 PT 11.4 SECONDS (9.4-12.5) 12/25/17 21:05 INR 1.00 (0.93-1.08) 12/25/17 21:05 - Constitutional Appears: Chronically Ill - Head Exam Head Exam: NORMAL INSPECTION - ENT Exam ENT Exam: Mucous Membranes Moist - Neck Exam Neck Exam: absent: Lymphadenopathy, Meningismus - Respiratory Exam Respiratory Exam: Decreased Breath Sounds - Cardiovascular Exam Cardiovascular Exam: +S1, +S2 - GI/Abdominal Exam GI & Abdominal Exam: Soft. absent: Tenderness Assessment and Plan - Assessment and Plan (Free Text) Plan: Assessment peripheral vascular disease with necrotic toes and ulceration bilaterally, S/P revascularization consider HCAP, bilateral, clinically improving acute encephalopathy, etiology to be determined, now resolved history of Right foot cellulitis with right hallux gangrene Peripheral vascular disease HTN Plan continue doxycycline, Merrem and Zyvox (day 14 of 14); as per Podiatry, no plans for surgery; would recommend 10-14 days of antibiotics for the foot, 5-7 days of antibiotics for the pneumonia (day 5 today) reviewed CT chest which is suggesting pneumonia - current antibiotics should be covering it and patient has not developed fevers reviewed brain MRI which is not showing acute CVA - reviewed Neurology evaluation repeat blood cx are negative will continue to follow clinically
--- NOTE | 2018-01-07 14:09 | CP.PCM.PN ---
Subjective - Date & Time of Evaluation Date of Evaluation: 01/07/18 Time of Evaluation: 14:02 - Subjective Subjective: Podiatry Progress Note - Dr. Irvin/Atul 77 year old male patient seen and evaluated at bedside for bilateral ischemic changes R foot > L foot. Patient resting comfortably, NAD. No acute events overnight. Reports pain in his digits is decreasing. Right hallux dressing clean /dry/intact. Multipodus boots present bilaterally. Offers no other complaints. Objective - Vital Signs/Intake and Output Vital Signs (last 24 hours): Temp Pulse Resp BP Pulse Ox 97.7 F 75 20 132/70 97 01/07/18 06:00 01/07/18 10:00 01/07/18 06:00 01/07/18 09:35 01/07/18 06:00 Intake and Output: 01/07/18 01/07/18 06:59 18:59 Intake Total 240 Output Total 600 Balance -360 - Medications Medications: Current Medications Amlodipine Besylate (Norvasc) 10 mg PO DAILY [facility] Last Admin: 01/07/18 09:35 Dose: 10 mg Aspirin (Aspirin Chewable) 81 mg PO DAILY [facility] Last Admin: 01/07/18 09:35 Dose: 81 mg Atorvastatin Calcium (Lipitor) 20 mg PO DIN [facility] Last Admin: 01/06/18 18:22 Dose: 20 mg Heparin Sodium (Porcine) (Heparin) 5,000 units SC Q8 [facility] PRN Reason: Protocol Last Admin: 01/07/18 13:44 Dose: 5,000 units Hydralazine HCl (Apresoline) 100 mg PO TID [facility] Last Admin: 01/07/18 13:44 Dose: 100 mg Meropenem 500 mg/ Sodium (Chloride) 50 mls @ 100 mls/hr IVPB Q12 [facility] PRN Reason: Protocol Stop: 01/10/18 10:01 Last Admin: 01/07/18 09:36 Dose: 100 mls/hr Linezolid (Zyvox 600mg/300ml D5w) 600 mg in 300 mls @ 200 mls/hr IVPB Q12 [facility] PRN Reason: Protocol Stop: 01/10/18 10:01 Last Admin: 01/07/18 09:34 Dose: 200 mls/hr Levalbuterol HCl (Xopenex) 0.63 mg IH [id number] [facility] Last Admin: 01/07/18 13:18 Dose: Not Given Ondansetron HCl (Zofran Inj) 4 mg IVP Q6H PRN PRN Reason: Nausea/Vomiting Last Admin: 01/01/18 23:25 Dose: 4 mg Vitamin A (Vitamin A & D Oint Ud Foilpak) 1 ea TOP Q8H [facility] Last Admin: 01/07/18 13:45 Dose: 1 ea Vitamin A (Vitamin A & D Oint Ud Foilpak) 1 ea TOP Q8 PRN PRN Reason: DRY SKIN Last Admin: 01/06/18 22:35 Dose: 1 ea - Labs Labs: 01/07/18 07:10 01/07/18 07:10 PT 11.4 SECONDS (9.4-12.5) 12/25/17 21:05 INR 1.00 (0.93-1.08) 12/25/17 21:05 - Constitutional Appears: Well, Non-toxic, No Acute Distress - Extremities Exam Additional comments: right foot is warm decreased capillary refill - wound on hallux small with no sinus tract or undermining with overlying eschar; minimal drainage; 4th and 5th toes with resolving gangrene with loosening of gangrenous eschars at distal rojelio, 5th digit noted to have underlying superficial ulceration with removal of eschar; the left foot is cool but less painful than the right no open wounds noted on the left - Neurological Exam Neurological Exam: Alert, Awake, Oriented x3 - Psychiatric Exam Psychiatric exam: Normal Affect, Normal Mood Assessment and Plan - Assessment and Plan (Free Text) Assessment: 77 year old male with PVD s/p successful vascular intervention Plan: Patient examined and evaluated alongside attending Dr. Irvin Afebrile, WBC trending downward 12.5 Duplex RLE arterial US- Normal velocities are noted in the right SFA. No significant stenoses were noted IMPRESSION: Patent right external iliac stent and SFA R CAMILA IMPRESSION: 1. Borderline abnormal right CAMILA. Improved from previous study 2. Left SFA and tibial disease Vascular- no additional vascular intervention during this time No podiatric surgical intervention at this time Continue local wound care - xeroform, DSD to right hallux and 5th digit; A&D ointment to bilateral LE BID -Eschars to 4th and 5th digit removed without incident Multipodus boots must be worn at all times while in bed Patient will benefit to a long-term facility for physical therapy Podiatry will continue to follow
[2018-01-07 15:03] VITALS: PULSE 72
--- NOTE | 2018-01-09 03:23 | DS ---
ADMITTING DIAGNOSES: Cellulitis of the right first toe with dry gangrene. DISCHARGE DIAGNOSES: Cellulitis of the right first toe with dry gangrene. SECONDARY DIAGNOSES: Severe peripheral vascular disease, status post Interventional Radiology revascularization, chronic kidney disease stage IV, hypertension, anemia of chronic disease, aspiration pneumonia (resolved) and altered mental status secondary to toxic metabolic encephalopathy (resolved). CONSULTATIONS: Dr. Pollard (Podiatry), Dr. Barber (Infectious Disease) and Dr. Wright (Neurology). IMAGING STUDIES: 1. X-ray of the right foot, which demonstrated degenerative changes to the interphalangeal joint with otherwise no acute pathology. 2. MRI of the right foot, which demonstrated no evidence of osteomyelitis. 3. CT of the head without contrast demonstrated no acute pathology. 4. MRI of the brain without contrast demonstrated no acute pathology. HISTORY OF PRESENT ILLNESS: The patient is a 77-year-old man with a past medical history of severe PVD, status post IR revascularization, CKD stage IV and anemia of chronic disease who presented to [facility] for evaluation of increasing pain and erythema at his right first toe. The patient was recently discharged from [facility] after an admission for cellulitis with dry gangrene to the aforementioned area. He was doing well at home until his sustained a hip fracture and was placed to [facility], given that she was his primary caregiver. He was unable to care for himself and thus his local wound care was not being performed as advised. He was found to have increasing pain and erythema at his affected toe, which prompted him for his visit to the emergency department. Upon arrival to ED, he was noted to be afebrile, hemodynamically stable. However, physical examination disclosed significant discoloration to the affected toe. Laboratory studies also disclosed leukocytosis with the WBC of 16,000. He was started on IV fluids and IV antibiotics before being admitted to the general medical [facility] for continued management of cellulitis with dry gangrene. HOSPITAL COURSE: Upon admission to the general medical [facility], he was evaluated by Dr. Pollard of the podiatry team. He underwent daily aggressive local wound care and MRI was obtained, which was negative for osteomyelitis. Dr. Barber, Infectious Disease was also consulted for antimicrobial recommendations. The patient was initially progressing nicely during his hospital stay. However, on hospital day #5, he was noted to become markedly confused and lethargic. The work, which was performed found the patient to have aspiration pneumonia. He was evaluated by Neurology and underwent neuroimaging studies, which were unremarkable and was felt that the cause of his altered mentation was likely secondary to his aspiration pneumonia. His antimicrobials were expanded and he was placed on supplemental oxygen and bronchodilators. He demonstrated gradual improvement over the following 36 hours and after reevaluation by the speech/swallow pathologist, his diet was advanced as per recommendations. The remainder of his hospital stay was largely unremarkable and after demonstrating resolution of his acute issues and return to his baseline clinical status, he was deemed stable for discharge to [facility]. CONDITION: Fair, improved. DISPOSITION: [facility] at [facility] rehab facility. DISCHARGE MEDICATIONS: Amlodipine 10 mg p.o. daily, hydralazine 100 mg p.o. t.i.d., Lipitor 20 mg p.o. daily and aspirin 81 mg p.o. daily. DISCHARGE INSTRUCTIONS: The patient was advised to adhere to wound care instructions as advised by the podiatric team. FOLLOWUP: The patient will follow up with his PMD within 1 week of discharge from rehab. The patient will follow up with Dr. Pollard as scheduled. Tommie Pedraza MD
== END 2018-01-07 15:55 | DRG 871 ==
LOC: ED 19:10 → ERH 21:21 → 5RSO 23:41 → 3RNO 01-01 21:53
PROVIDERS: ADMIT Internal Medicine; ATTEND Internal Medicine
PROC: 30233N1 Transfusion of Nonautologous Red Blood Cells into Peripheral Vein, Percutaneous Approach (ICD-10-PCS; 2017-12-27)
PROC: 0HBMXZZ Excision of Right Foot Skin, External Approach (ICD-10-PCS; principal; 2017-12-30)
DX: A41.9 Sepsis, unspecified organism (principal); J69.0 Pneumonitis due to inhalation of food and vomit; G92 Toxic encephalopathy; I96 Gangrene, not elsewhere classified; L03.115 Cellulitis of right lower limb; N17.9 Acute kidney failure, unspecified; N18.4 Chronic kidney disease, stage 4 (severe); I47.2 Ventricular tachycardia; I73.9 Peripheral vascular disease, unspecified; D63.8 Anemia in other chronic diseases classified elsewhere; E87.6 Hypokalemia; I12.9 Hypertensive chronic kidney disease with stage 1 through stage 4 chronic kidney disease, or unspecified chronic kidney disease; L03.031 Cellulitis of right toe; I16.0 Hypertensive urgency; L97.519 Non-pressure chronic ulcer of other part of right foot with unspecified severity; L97.529 Non-pressure chronic ulcer of other part of left foot with unspecified severity; M19.90 Unspecified osteoarthritis, unspecified site; Z95.820 Peripheral vascular angioplasty status with implants and grafts; Z87.891 Personal history of nicotine dependence

== ENCOUNTER 2018-01-12 20:00 | Inpatient (IN) | payer MEDICARE ==
[2018-01-12 20:01] VITALS: BMI 19.2
[2018-01-12 22:14] LABS: BASO # 0.04 K/mm3 (0.0-2.0); BASO % 0.2 % (0.0-3.0); EOS # 0.8 (0.0-0.7); EOS % 4.9 % (1.5-5.0); GRAN # 11.29 (1.4-6.5); GRAN % 66.4 % (50.0-68.0); LYMPH # 2.6 (1.2-3.4); LYMPH % 15.3 % (22.0-35.0); MEAN CELL VOLUME 87.8 fl (80.0-105.0); MEAN CORPUSCULAR HEMOGLOBIN 28.4 pg (25.0-35.0); MEAN CORPUSCULAR HGB CONC 32.3 g/dl (31.0-37.0); MONO # 2.2 (0.1-0.6); MONO % 13.2 % (1.0-6.0); RBC 2.29 10^6/uL (3.5-6.1); RED CELL DISTRIBUTION WIDTH 14.6 % (11.5-14.5)
[2018-01-12 22:19] LABS: HEMOGLOBIN 6.5 g/dL (14.0-18.0)
[2018-01-12 22:29] LABS: ALB/GLOB RATIO 1.1 (1.1-1.8); ALBUMIN 3.3 g/dL (3.0-4.8); CALCIUM 8.1 mg/dL (8.4-10.5)
[2018-01-13] MEDS ORDERED: Oxycodone/Acetaminophen 5/325 mg Tab PO STA (00:04)
[2018-01-13 00:53] LABS: INR 0.94 (0.93-1.08); PARTIAL THROMBOPLASTIN TIME 29.8 Seconds (25.1-36.5); PROTHROMBIN TIME 10.7 SECONDS (9.4-12.5)
[2018-01-13 01:40] LABS: PH,URINE 6.5 (4.7-8.0); URINE BILIRUBIN NEGATIVE (NEGATIVE); URINE BLOOD SMALL (NEGATIVE); URINE GLUCOSE (UA) NEGATIVE (NEGATIVE); URINE LEUKOCYTE ESTERASE NEGATIVE Leu/uL (NEGATIVE); URINE PROTEIN 100 mg/dL (<30 mg/dL); URINE UROBILINOGEN 0.2 E.U./dL (<1 E.U./dL)
[2018-01-13 01:50] LABS: URINE APPEARANCE CLEAR (CLEAR); URINE COLOR YELLOW (YELLOW)
[2018-01-13 01:52] LABS: URINE EPITHELIAL CELLS 0 - 2 /hpf (0-5); URINE RBC 0 - 2 /hpf (0-2)
[2018-01-13 01:53] LABS: URINE BACTERIA RARE (NEG)
--- NOTE | 2018-01-13 02:39 | ED PDOC ---
Arrival/HPI - General Chief Complaint: Abnormal Labs Time Seen by Provider: 01/12/18 20:43 Historian: Patient, Retirement - History of Present Illness Narrative History of Present Illness (Text): 01/13/18 02:36 77yr old male [facility] for low hemoglobin. Patient denies any current complaints besides chronic right foot pain. Patient states he has had right foot pain since August. Patient denies chest pain or shortness of breath. Denies fevers or chills. Denies abdominal pain. Denies chest pain. Denies rectal bleeding. Patient is requesting pain medication for his chronic foot pain. Past Medical History - Provider Review Nursing Documentation Reviewed: Yes - Travel History Have you recently traveled outside [place] w/in the past 3 mons?: No - Infectious Disease Hx of Infectious Diseases: None - Cardiac Hx Hypertension: Yes - Neurological Hx Paralysis: No - Hematological/Oncological Hx Blood Transfusions: No - Musculoskeletal/Rheumatological Hx Musculoskeletal Disorders: No Hx Falls: Yes - Psychiatric Hx Emotional Abuse: No Hx Physical Abuse: No Hx Substance Use: No - Past Surgical History Past Surgical History: No Previous - Anesthesia Hx Anesthesia Reactions: No Hx Malignant Hyperthermia: No - Suicidal Assessment Feels Threatened In Home Enviroment: No Family/Social History - Physician Review Nursing Documentation Reviewed: Yes Family/Social History: Unknown Family HX Smoking Status: Former Smoker Hx Alcohol Use: No Hx Substance Use: No Hx Substance Use Treatment: No Allergies/Home Meds Allergies/Adverse Reactions: Allergies No Known Allergies Allergy (Verified 12/25/17 21:36) Home Medications: Home Meds Medication Instructions Recorded Confirmed Lisinopril/Hydrochlorothiazide 1 tab PO DAILY 11/05/17 01/12/18 [Lisinopril-Hctz 20-25 mg Tab] Oxycodone HCl/Acetaminophen 1 tab PO Q8H PRN 11/05/17 01/12/18 [Endocet 5-325 Tablet] Review of Systems - Review of Systems Constitutional: absent: Fatigue, Fevers Respiratory: absent: SOB, Cough Cardiovascular: absent: Chest Pain, Palpitations Gastrointestinal: absent: Abdominal Pain, Constipation, Diarrhea, Nausea, Vomiting, Hematochezia, Hematemesis Genitourinary Male: absent: Dysuria, Frequency, Hematuria Musculoskeletal: Arthralgias Skin: absent: Rash, Pruritis Neurological: absent: Headache, Dizziness Psychiatric: absent: Anxiety, Depression Physical Exam Vital Signs Reviewed: Yes Vital Signs Temp Pulse Resp BP Pulse Ox 01/13/18 02:24 98.1 F 84 18 136/84 01/12/18 20:01 98.1 F 76 18 140/76 100 Temperature: Afebrile Blood Pressure: Normal Pulse: Regular Respiratory Rate: Normal Appearance: Positive for: Well-Appearing, Non-Toxic, Comfortable Pain Distress: None Mental Status: Positive for: Alert and Oriented X 3 - Systems Exam Head: Present: Atraumatic Mouth: Present: Moist Mucous Membranes Neck: Present: Normal Range of Motion Respiratory/Chest: Present: Clear to Auscultation, Good Air Exchange. No: Respiratory Distress, Accessory Muscle Use Cardiovascular: Present: Regular Rate and Rhythm, Normal S1, S2. No: Murmurs Abdomen: No: Tenderness, Distention, Rebound, Guarding Rectal: Present: Occult Blood, Normal Rectal Tone, Other (chaparoned by CODY OWUSU RN). No: Rectal Tenderness, Gross Blood, Melena, Hemorrhoids, Fissures Back: Present: Decubitus Ulcer (sacral decubitus ulcer) Upper Extremity: Present: Normal ROM Lower Extremity: Present: Normal ROM, Other (+ necrosis noted to right great toe , rigth 4th, 5th toes. minimally tender; no surrounding erythema. ) Neurological: Present: GCS=15, Speech Normal Skin: Present: Warm, Dry, Normal Color Psychiatric: Present: Alert, Oriented x 3 Medical Decision Making ED Course and Treatment: 01/13/18 02:49 77-year-old male sent in from jail for low hemoglobin. CBC: Hemoglobin 6.5, WBC; 17 CMP BUNs and 37 creatinine 3.2 EKG normal sinus rhythm at 78 bpm with a right bundle branch block normal axis normal intervals no ST elevations cxr; no infiltrate or effusion UA; no leukocytes. consent for blood transfusion obtained. pt typed and crossed for 2 units. blood cultures added. no current source for leukocytosis; pt with heme positive stools. with HGB of 9.3 --> 6.5 in 4 days. case discussed with dr. medina; accepts admission for anemia and rectal bleeding. impression; rectal bleeding, anemia, leukocytosis admit tele Reassessment Condition: Re-examined, Unchanged - Lab Interpretations Lab Results: 01/12/18 22:04 01/12/18 22:04 Lab Results 01/12/18 22:31: PT 10.7, INR 0.94, APTT 29.8 01/12/18 22:30: Urine Color Yellow, Urine Appearance Clear, Urine pH 6.5, Ur Specific [place] 1.015, Urine Protein 100 H, Urine Glucose (UA) Negative, Urine Ketones Negative, Urine Blood Small H, Urine Nitrate Negative, Urine Bilirubin Negative, Urine Urobilinogen 0.2, Ur Leukocyte Esterase Negative, Urine RBC 0 - 2, Urine WBC 1 - 3, Ur Epithelial Cells 0 - 2, Urine Bacteria Rare 01/12/18 22:04: WBC 17.0 H D, RBC 2.29 L, Hgb 6.5 L* D, Hct 20.1 L*, MCV 87.8, MCH 28.4, MCHC 32.3, RDW 14.6 H, Plt Count 186, MPV 10.0, Gran % 66.4, Lymph % ( Auto) 15.3 L, Lynn % (Auto) 13.2 H, Eos % (Auto) 4.9, Baso % (Auto) 0.2, Gran # 11.29 H, Lymph # (Auto) 2.6, Lynn # (Auto) 2.2 H, Eos # (Auto) 0.8 H, Baso # ( Auto) 0.04 01/12/18 22:04: Sodium 139, Potassium 3.9, Chloride 101, Carbon Dioxide 26, Anion Gap 16, BUN 37 H, Creatinine 3.2 H, Est GFR ( Amer) 23, Est GFR ( Non-Af Amer) 19, Random Glucose 99, Calcium 8.1 L, Total Bilirubin 0.3, AST 48, ALT 36, Alkaline Phosphatase 135 H D, Total Protein 6.4, Albumin 3.3, Globulin 3.1, Albumin/Globulin Ratio 1.1 01/12/18 21:56: Blood Type B POSITIVE, Antibody Screen Negative, Crossmatch See Detail, BBK History Checked Patient has bt - RAD Interpretation Radiology Orders: 01/12/18 20:43 CHEST PORTABLE [RAD] Stat - Medication Orders Current Medication Orders: Discontinued Medications Oxycodone/Acetaminophen (Percocet 5/325 Mg Tab) 1 tab PO STAT STA Stop: 01/13/18 00:05 Last Admin: 01/13/18 02:08 Dose: 1 tab MAR Pain Assessment Document 01/13/18 02:08 TERA (Rec: 01/13/18 02:08 TERA [id number]) Pain Reassessment Is this a pain reassessment? No Disposition/Present on Arrival - Present on Arrival Any Indicators Present on Arrival: No History of DVT/PE: No History of Uncontrolled Diabetes: No Urinary Catheter: No History of Decub. Ulcer: No History Surgical Site Infection Following: None - Disposition Have Diagnosis and Disposition been Completed?: Yes Diagnosis: Rectal bleeding, Anemia, Leukocytosis Disposition: HOSPITALIZED Disposition Time: 02:53 Patient Plan: Admission Patient Problems: Current Active Problems Problem Status Onset Anemia Acute Leukocytosis Acute Rectal bleeding Acute Condition: FAIR Referrals: Shivani Walters MD [Primary Care Provider] - Follow up with primary Forms: [employer] ([place])
[2018-01-13 08:06] LABS: BASO # 0.06 K/mm3 (0.0-2.0); BASO % 0.4 % (0.0-3.0); EOS # 0.9 (0.0-0.7); EOS % 6.1 % (1.5-5.0); GRAN # 9.41 (1.4-6.5); GRAN % 60.9 % (50.0-68.0); HEMOGLOBIN 7.8 g/dL (14.0-18.0); LYMPH # 3.1 (1.2-3.4); LYMPH % 19.9 % (22.0-35.0); MEAN CELL VOLUME 85.5 fl (80.0-105.0); MEAN CORPUSCULAR HGB CONC 33.9 g/dl (31.0-37.0); MEAN PLATELET VOLUME 10.1 fl (7.0-11.0); MONO % 12.7 % (1.0-6.0); RBC 2.69 10^6/uL (3.5-6.1); RED CELL DISTRIBUTION WIDTH 15.2 % (11.5-14.5); WHITE BLOOD COUNT 15.4 10^3/ul (4.5-11.0)
[2018-01-13 08:18] LABS: ALB/GLOB RATIO 1.1 (1.1-1.8); ALBUMIN 3.1 g/dL (3.0-4.8)
--- NOTE | 2018-01-13 08:32 | RAD ---
HISTORY: anemia COMPARISON: 01/01/2018. FINDINGS: LUNGS: The lungs are well inflated and clear. PLEURA: No significant pleural effusion identified, no pneumothorax apparent. CARDIOVASCULAR: Normal. OSSEOUS STRUCTURES: No significant abnormalities. VISUALIZED UPPER ABDOMEN: Normal. OTHER FINDINGS: None. IMPRESSION: No active pulmonary disease.
--- NOTE | 2018-01-13 09:49 | HP ---
HISTORY OF PRESENT ILLNESS: The patient is a 77 year old man with multiple medical comorbidities including CKD stage 4 and anemia of chronic disease who was recently discharged from [facility] after an admission for management of right foot cellulitis who was sent from [facility] for evaluation of a Hb of 6.5. The patient has reportedly been doing well at the subacute rehab facility and routine morning laboratory studies demonstrated a Hb of 6.5. Of note, the patient has a baseline Hb of 8-9. He denies any overt blood loss and further denies nausea, vomiting, diarrhea, fevers, chills, rigors or hematuria. Given his acute drop in hemoglobin, he was sent to the ED for further evaluation. Upon arrival to the ED he was found to be afebrile and hemodynamically stable. Routine laboratory studies confirmed a Hb of 6.5 and he was typed and crossmatched for 1 unit of PRBCs and was subsequently transferred to the telemetry [facility] for management of anemia. 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 PAST SURGICAL HISTORY: As per HPI, also right hip arthroplasty. ALLERGIES: NKDA. MEDICATIONS: Amlodipine 10 mg p.o. daily, Hydralazine 100 mg p.o. t.i.d., Lipitor 20 mg p.o. daily and Aspirin 81 mg p.o. daily. FAMILY HISTORY: Noncontributory. SOCIAL HISTORY: The patient reports a [id number] smoking history but denies alcohol use or illicit drug abuse. REVIEW OF SYSTEMS: A 14-point review of systems is negative except as per HPI. PHYSICAL EXAMINATION: VITAL SIGNS: Temperature 98.3, pulse 83, blood pressure 144/81, respiratory rate 18, oxygen saturation 100% on room air. GENERAL: A frail, elderly man appearing his stated age, lying in bed in no apparent distress. HEENT: PERRL, EOMI. No scleral icterus. Conjunctival pallor is noted. NECK: No JVD. LUNGS: Decreased breath sounds at the bases. CARDIOVASCULAR: Regular rate and rhythm. Normal S1 and S2. ABDOMEN: Normoactive bowel sounds. Soft, nontender and nondistended. EXTREMITIES: No edema. Right foot with dressing in place. NEUROLOGIC: Awake, alert and oriented x 3. No focal motor deficits. LABORATORY DATA: WBC 15.4, hemoglobin 7.8, hematocrit 23, platelets 186. Sodium 138, potassium 3.6, chloride 104, bicarb 25, BUN 34, creatinine 3.1, glucose 86. Stool occult blood is reportedly positive from the ED. ASSESSMENT: The patient is a 77 year old man with a past medical history of hypertension, severe PVD s/p IR revascularization, CKD stage 4 and anemia of chronic disease who was sent from a subacute rehabilitation facility for evaluation of the hemoglobin of 6.5. PLAN: 1. ?GI bleed superimposed on anemia of chronic disease. Laboratory studies confirmed an acute drop in hemoglobin and the patient reportedly had a positive stool occult blood in the ED. He is s/p transfusion of 1 unit PRBCs with an appropriate response in the hemoglobin from 6.[address] Araya GI has been consulted for further evaluation. We will start Protonix 40 mg p.o. b.i.d and hold the patient's Aspirin 81 mg p.o. daily. Continue to monitor CBC daily and transfuse as needed. 2. Cellulitis with dry gangrene of the right first toe, improving. MRI was negative for osteomyelitis from his most recent admission. We will reconsult the Podiatric team for continued local wound care during this hospitalization. 3. Severe PVD s/p IR revascularization. Continue Lipitor 20 mg p.o. daily and as above we will hold Aspirin 81 mg p.o. daily in the setting of possible GI bleed. 4. CKD stage 4. Renal function remains at baseline. 5. Hypertension. Resume amlodipine 10 mg p.o. daily. 6. Prophylaxis. Continue Protonix for GI prophylaxis. We will hold chemical anticoagulation in the setting of possible GI bleed. CODE STATUS: Full code. Tommie Pedraza MD MTDD
--- NOTE | 2018-01-13 15:08 | CP.PCM.CON ---
<Harinder Ocasio - Last Filed: 01/13/18 15:03> History of Present Illness - History of Present Illness History of Present Illness: Podiatry Consult note: Dr. Irvin/Dr. Pollard 77 year old male patient with PMH of HTN was seen and evaluated for ischemic changes to the right big toe. Patient is known to the podiatry service. Patient reports of pain in bilateral feet R > L. Patient reports that the pain in his feet is about the same as it was before he left the hospital last week. Patient reports that [facility] because his blood level was dropping. Denies of having any recent F/N/V/C/SOB/CP/headache/ diarrhea. No new pedal complains at this time. Review of Systems - Constitutional Constitutional: As Per HPI Past Patient History - Infectious Disease Hx of Infectious Diseases: None - Past Social History Smoking Status: Current Some Days Smoker - CARDIAC Hx Cardiac Disorders: Yes Hx Congestive Heart Failure: Yes Hx Hypertension: Yes - PULMONARY Hx Respiratory Disorders: No - NEUROLOGICAL Hx Neurological Disorder: No - HEENT Hx HEENT Problems: No - RENAL Hx Chronic Kidney Disease: Yes - ENDOCRINE/METABOLIC Hx Endocrine Disorders: No - HEMATOLOGICAL/ONCOLOGICAL Hx Blood Disorders: Yes Hx Anemia: Yes - INTEGUMENTARY Hx Dermatological Problems: No - MUSCULOSKELETAL/RHEUMATOLOGICAL Hx Musculoskeletal Disorders: No Hx Falls: No - GASTROINTESTINAL Hx Gastrointestinal Disorders: No - GENITOURINARY/GYNECOLOGICAL Hx Genitourinary Disorders: No - PSYCHIATRIC Hx Psychophysiologic Disorder: No Hx Substance Use: No - SURGICAL HISTORY Hx Surgeries: Yes - ANESTHESIA Hx Anesthesia Reactions: No Hx Malignant Hyperthermia: No Meds Allergies/Adverse Reactions: Allergies Allergy/AdvReac Type Severity Reaction Status Date / Time No Known Allergies Allergy Verified 12/25/17 21:36 - Medications Medications: Current Medications Amlodipine Besylate (Norvasc) 10 mg PO DAILY [facility] Last Admin: 01/13/18 09:58 Dose: 10 mg Atorvastatin Calcium (Lipitor) 20 mg PO DIN MARGOTH Pantoprazole Sodium (Protonix Ec Tab) 40 mg PO 0600,1600 [facility] Physical Exam - Constitutional Appears: Well, Non-toxic, No Acute Distress - Extremities Exam Additional comments: Vasc: DP and PT faintly palpable, temperature gradient cool to cool, no edema noted to the LE, CFT delayed to the digits Derm: right hallux wound with ischemic changes, wound is small with no sinus tract or undermining with overlying eschar; minimal drainage noted: blue-shawnee erythematous discoloration to the hallux; 4th and 5th toes with resolving gangrene with loosening of gangrenous eschars at distal rojelio, 5th digit noted to have underlying superficial ulceration with removal of eschar, no open lesions noted to the RLE, no fluctanance, no abscess, no clinical signs of infection, left foot digit 3 and 4 appear hyperpigmented with no open lesions, no clinical suspicion of active infection Neuro: gross and protective sensation intact Ortho: severe pain noted with light palpation to the right hallux and generalized forefoot, mild pain on the left forefoot, patient unable to MM secondary to guarding. - Neurological Exam Neurological exam: Alert, Oriented x3 - Psychiatric Exam Psychiatric exam: Normal Affect, Normal Mood Results - Vital Signs Recent Vital Signs: Last Vital Signs Temp 97.8 F 01/13/18 12:00 Pulse 70 01/13/18 12:00 Resp 18 01/13/18 12:00 BP 125/76 01/13/18 12:00 Pulse Ox 100 01/13/18 06:00 - Labs Result Diagrams: 01/13/18 07:45 01/13/18 07:45 Labs: Laboratory Results - last 24 hr 01/13/18 01/13/18 07:45 07:45 WBC 15.4 H RBC 2.69 L Hgb 7.8 L Hct 23.0 L MCV 85.5 MCH 29.0 MCHC 33.9 RDW 15.2 H Plt Count 186 MPV 10.1 Gran % 60.9 Lymph % (Auto) 19.9 L [place] % (Auto) 12.7 H Eos % (Auto) 6.1 H Baso % (Auto) 0.4 Gran # 9.41 H Lymph # (Auto) 3.1 [place] # (Auto) 2.0 H Eos # (Auto) 0.9 H Baso # (Auto) 0.06 Sodium 138 Potassium 3.6 Chloride 104 Carbon Dioxide 25 Anion Gap 13 BUN 34 H Creatinine 3.1 H Est GFR ( Amer) 24 Est GFR (Non-Af Amer) 20 Random Glucose 86 Calcium 8.0 L Total Bilirubin 0.6 AST 36 ALT 41 Alkaline Phosphatase 104 Total Protein 6.0 Albumin 3.1 Globulin 2.9 Albumin/Globulin Ratio 1.1 Assessment & Plan - Assessment and Plan (Free Text) Assessment: 77 year old male with PVD s/p successful vascular intervention Plan: Patient examined and evaluated Discussed in details with attending Dr. Pollard Afebrile, WBC @ 15.4 From previous admission: Vascular- no additional vascular intervention during this time Duplex RLE arterial US- Normal velocities are noted in the right SFA. No significant stenoses were noted IMPRESSION: Patent right external iliac stent and SFA R CAMILA IMPRESSION: 1. Borderline abnormal right CAMILA. Improved from previous study 2. Left SFA and tibial disease No podiatric surgical intervention at this time Continue local wound care - xeroform, DSD to right hallux and 5th digit; A&D ointment to bilateral LE BID Multipodus boots must be worn at all times while in bed Patient will benefit to a long-term facility for physical therapy Podiatry will continue to follow - Date & Time Date: 01/13/18 Time: 15:15 <Jason Pollard - Last Filed: 01/14/18 08:13> Meds - Medications Medications: Current Medications Amlodipine Besylate (Norvasc) 10 mg PO DAILY [facility] Last Admin: 01/13/18 09:58 Dose: 10 mg Atorvastatin Calcium (Lipitor) 20 mg PO DIN [facility] Last Admin: 01/13/18 16:28 Dose: 20 mg Oxycodone/Acetaminophen (Percocet 5/325 Mg Tab) 1 tab PO BID PRN PRN Reason: Pain, moderate (4-7) Stop: 01/16/18 21:33 Last Admin: 01/13/18 22:00 Dose: 1 tab Pantoprazole Sodium (Protonix Ec Tab) 40 mg PO 0600,1600 [facility] Last Admin: 01/14/18 06:09 Dose: 40 mg Results - Vital Signs Recent Vital Signs: Last Vital Signs Temp 98.1 F 01/14/18 06:00 Pulse 71 01/14/18 06:00 Resp 20 01/14/18 06:00 BP 125/73 01/14/18 06:00 Pulse Ox 97 01/14/18 06:00 - Labs Result Diagrams: 01/14/18 06:30 01/14/18 06:30 Labs: Laboratory Results - last 24 hr 01/13/18 01/14/18 01/14/18 07:45 06:30 06:30 WBC 15.7 H RBC 3.32 L Hgb 9.4 L Hct 28.2 L MCV 84.9 MCH 28.3 MCHC 33.3 RDW 16.2 H Plt Count 226 MPV 9.9 Gran % 62.4 Lymph % (Auto) 17.9 L [place] % (Auto) 14.1 H Eos % (Auto) 5.5 H Baso % (Auto) 0.1 Gran # 9.80 H Lymph # (Auto) 2.8 [place] # (Auto) 2.2 H Eos # (Auto) 0.9 H Baso # (Auto) 0.02 Sodium 138 136 Potassium 3.6 3.7 Chloride 104 103 Carbon Dioxide 25 25 Anion Gap 13 12 BUN 34 H 35 H Creatinine 3.1 H 3.0 H Est GFR ( Amer) 24 25 Est GFR (Non-Af Amer) 20 20 Random Glucose 86 86 Calcium 8.0 L 8.0 L Iron TIBC % Saturation Total Bilirubin 0.6 0.6 AST 36 36 ALT 41 41 Alkaline Phosphatase 104 108 Total Protein 6.0 6.0 Albumin 3.1 3.0 Globulin 2.9 3.0 Albumin/Globulin Ratio 1.1 1.0 L Triglycerides Cholesterol LDL Cholesterol Direct HDL Cholesterol 01/14/18 01/14/18 06:30 06:30 WBC RBC Hgb Hct MCV MCH MCHC RDW Plt Count MPV Gran % Lymph % (Auto) [place] % (Auto) Eos % (Auto) Baso % (Auto) Gran # Lymph # (Auto) [place] # (Auto) Eos # (Auto) Baso # (Auto) Sodium Potassium Chloride Carbon Dioxide Anion Gap BUN Creatinine Est GFR ( Amer) Est GFR (Non-Af Amer) Random Glucose Calcium Iron 22 L TIBC 159 L % Saturation 14 L Total Bilirubin AST ALT Alkaline Phosphatase Total Protein Albumin Globulin Albumin/Globulin Ratio Triglycerides 114 Cholesterol 128 L LDL Cholesterol Direct 49 HDL Cholesterol 42 Attending/Attestation - Attestation I have personally seen and examined this patient.: Yes I have fully participated in the care of the patient.: Yes I have reviewed all pertinent clinical information: Yes
[2018-01-13] MEDS: Pantoprazole 40 mg EC Tab PO SCH (16:28)
--- NOTE | 2018-01-13 21:38 | CARD ---
APPROVED REPORT EKG Measurement Heart [id number] <Conclusion> Normal sinus rhythm Right bundle branch block T wave abnormality, consider lateral ischemia Abnormal ECG
[2018-01-13] MEDS: Oxycodone/Acetaminophen 5/325 mg Tab PO PRN (22:00)
[2018-01-14] MEDS: Pantoprazole 40 mg EC Tab PO SCH ×2 (06:09→16:27)
[2018-01-14 06:52] LABS: BASO # 0.02 K/mm3 (0.0-2.0); BASO % 0.1 % (0.0-3.0); EOS # 0.9 (0.0-0.7); EOS % 5.5 % (1.5-5.0); GRAN # 9.8 (1.4-6.5); GRAN % 62.4 % (50.0-68.0); HEMOGLOBIN 9.4 g/dL (14.0-18.0); LYMPH # 2.8 (1.2-3.4); LYMPH % 17.9 % (22.0-35.0); MEAN CELL VOLUME 84.9 fl (80.0-105.0); MEAN CORPUSCULAR HEMOGLOBIN 28.3 pg (25.0-35.0); MEAN CORPUSCULAR HGB CONC 33.3 g/dl (31.0-37.0); MEAN PLATELET VOLUME 9.9 fl (7.0-11.0); MONO # 2.2 (0.1-0.6); MONO % 14.1 % (1.0-6.0); RBC 3.32 10^6/uL (3.5-6.1); RED CELL DISTRIBUTION WIDTH 16.2 % (11.5-14.5); WHITE BLOOD COUNT 15.7 10^3/ul (4.5-11.0)
[2018-01-14 07:04] LABS: IRON 22 ug/dL (45-180)
[2018-01-14 07:13] LABS: % IRON SATURATION 14 % (20-55); TOTAL IRON BINDING CAPACITY 159 ug/dL (261-462)
--- NOTE | 2018-01-14 07:21 | CON ---
DATE: 01/13/2018 REASON FOR CONSULTATION: Anemia, rule out GI source of blood loss. HISTORY OF PRESENT ILLNESS: This is a 77-year-old patient with past medical history of chronic kidney disease, who was recently discharged from the hospital, was in [facility]. He had a routine blood work done, was found to have a hemoglobin of 6.6. He was transferred to [facility] for further evaluation. No obvious bleeding per rectum or melena. No abdominal pain, no vomiting blood. The patient denies having had an endoscopy or colonoscopy done in the past. 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 PAST SURGICAL HISTORY: Significant for right hip arthroplasty. ALLERGIES: NO KNOWN DRUG ALLERGY. FAMILY HISTORY: Noncontributory. SOCIAL HISTORY: Positive for smoking, [id number]. Denies alcohol use. REVIEW OF SYSTEMS: Positive as above. Other systems reviewed. A 14-point review of systems done, negative. PHYSICAL EXAMINATION: GENERAL: The patient is lying on the bed, not in acute distress. VITAL SIGNS: Temperature 98.9, pulse 89, blood pressure is 138/81, respiration 16. HEENT: Atraumatic, anicteric. NECK: Supple. HEART: S1, S2 heard. LUNGS: Bilateral air entry present. ABDOMEN: Soft. No mass palpable. No tenderness. EXTREMITIES: Right foot dressing in place. NEUROLOGIC: Alert, oriented, moves all the extremities. LABORATORY DATA: Hemoglobin was 6.5. The patient received a unit of packed RBC. Repeat hemoglobin after 1 unit was 7.8. The patient subsequently had another unit of transfusion. BUN 34, creatinine 3.1. IMPRESSION: This 77-year-old patient with peripheral vascular disease, on aspirin, status post IR intervention before, admitted with severe anemia with a hemoglobin of 6.5, received one unit by the time of examination in the morning. The patient subsequently had another unit. The differential diagnoses should include occult gastrointestinal bleeding; history of melena to be considered. Other differential diagnoses should include peptic ulcer disease, neoplasia, diverticulosis, arteriovenous malformation. The patient did receive soft cardiac diet in the morning. RECOMMENDATIONS: We would recommend: 1. Close followup of the hemoglobin and hematocrit. 2. PPI. 3. The patient is scheduled for an EGD in a.m. 4. Would probably need a colonoscopy, which we will consider after the upper GI endoscopic evaluation. Thank you very much for allowing us to participate in the care of the patient. Bright Bernard MD
--- NOTE | 2018-01-14 11:55 | CP.PCM.PN ---
Subjective - Date & Time of Evaluation Date of Evaluation: 01/14/18 Time of Evaluation: 11:51 - Subjective Subjective: Podiatry progress note: Dr. Irvin/Dr. Pollard 77 year old male patient with PMH of HTN was seen and evaluated for ischemic changes to the right big toe. Patient is AAOx3 and is in NAD. Reports that he has the same level of pain as before. Denies of having any acute overnight events. Denies of any recent F/N/V/C/SOB/CP. Denies of any other pedal complains now. Objective - Vital Signs/Intake and Output Vital Signs (last 24 hours): Temp Pulse Resp BP Pulse Ox 98.1 F 71 20 125/73 97 01/14/18 06:00 01/14/18 06:00 01/14/18 06:00 01/14/18 09:27 01/14/18 06:00 Intake and Output: 01/14/18 01/14/18 06:59 18:59 Intake Total 1125 Output Total 600 Balance 525 - Medications Medications: Current Medications Amlodipine Besylate (Norvasc) 10 mg PO DAILY [facility] Last Admin: 01/14/18 09:27 Dose: 10 mg Atorvastatin Calcium (Lipitor) 20 mg PO DIN [facility] Last Admin: 01/13/18 16:28 Dose: 20 mg Oxycodone/Acetaminophen (Percocet 5/325 Mg Tab) 1 tab PO BID PRN PRN Reason: Pain, moderate (4-7) Stop: 01/16/18 21:33 Last Admin: 01/13/18 22:00 Dose: 1 tab Pantoprazole Sodium (Protonix Ec Tab) 40 mg PO 0600,1600 [facility] Last Admin: 01/14/18 06:09 Dose: 40 mg - Labs Labs: 01/14/18 06:30 01/14/18 06:30 PT 10.7 SECONDS (9.4-12.5) 01/12/18 22:31 INR 0.94 (0.93-1.08) 01/12/18 22:31 APTT 29.8 Seconds (25.1-36.5) 01/12/18 22:31 - Constitutional Appears: Well, Non-toxic, No Acute Distress - Extremities Exam Additional comments: Bilateral LE focused exam Vasc: DP and PT faintly palpable, temperature gradient cool to cool, no edema noted to the LE, CFT delayed to the digits Derm: right hallux wound with ischemic changes, wound is small with no sinus tract or undermining with overlying eschar; minimal drainage noted: blue-shawnee erythematous discoloration to the hallux; 4th and 5th toes with resolving gangrene with loosening of gangrenous eschars at distal rojelio, 5th digit noted to have underlying superficial ulceration with removal of eschar, no open lesions noted to the RLE, no fluctanance, no abscess, no clinical signs of infection, left foot digit 3 and 4 appear hyperpigmented with no open lesions, no clinical suspicion of active infection Neuro: gross and protective sensation intact Ortho: severe pain noted with light palpation to the right hallux and generalized forefoot, mild pain on the left forefoot, patient unable to MM secondary to guarding. - Neurological Exam Neurological Exam: Alert, Awake, Oriented x3 - Psychiatric Exam Psychiatric exam: Normal Affect, Normal Mood Assessment and Plan - Assessment and Plan (Free Text) Assessment: 77 year old male with ischemic digits secondary to PVD s/p successful vascular intervention Plan: Patient examined and evaluated Discussed in details with attending Dr. Irvin Labs, vitals and charts reviewed - afebrile, WBC @ 15.7 From previous admission: Vascular- no additional vascular intervention during this time Duplex RLE arterial US- Normal velocities are noted in the right SFA. No significant stenoses were noted IMPRESSION: Patent right external iliac stent and SFA R CAMILA IMPRESSION: 1. Borderline abnormal right CAMILA. Improved from previous study 2. Left SFA and tibial disease No podiatric surgical intervention at this time Continue local wound care - xeroform, DSD to right hallux and 5th digit; A&D ointment to bilateral LE BID Multipodus boots must be worn at all times while in bed Patient will benefit to a long-term facility for physical therapy Podiatry will continue to follow
--- NOTE | 2018-01-14 12:56 | CP.PCM.PN ---
Subjective - Date & Time of Evaluation Date of Evaluation: 01/14/18 Time of Evaluation: 09:00 - Subjective Subjective: PGY-2 progress note Patient seen and examined at bedside. No acute distress. Nurse reports no acute events overnight, no reports of bloody bowel movements. Patient states that he is doing well. He denies any headache, dizziness, chest pain, sob, abd pain, n/ v. He is tolerating diet. He states he had BM last night, does not know if it was blood, denies hematura. Objective - Vital Signs/Intake and Output Vital Signs (last 24 hours): Temp Pulse Resp BP Pulse Ox 98 F 82 18 126/76 97 01/14/18 12:00 01/14/18 12:00 01/14/18 12:00 01/14/18 12:00 01/14/18 06:00 Intake and Output: 01/14/18 01/14/18 06:59 18:59 Intake Total 1125 Output Total 600 Balance 525 - Medications Medications: Current Medications Amlodipine Besylate (Norvasc) 10 mg PO DAILY [facility] Last Admin: 01/14/18 09:27 Dose: 10 mg Atorvastatin Calcium (Lipitor) 20 mg PO DIN [facility] Last Admin: 01/13/18 16:28 Dose: 20 mg Oxycodone/Acetaminophen (Percocet 5/325 Mg Tab) 1 tab PO BID PRN PRN Reason: Pain, moderate (4-7) Stop: 01/16/18 21:33 Last Admin: 01/13/18 22:00 Dose: 1 tab Pantoprazole Sodium (Protonix Ec Tab) 40 mg PO 0600,1600 [facility] Last Admin: 01/14/18 06:09 Dose: 40 mg - Labs Labs: 01/14/18 06:30 01/14/18 06:30 PT 10.7 SECONDS (9.4-12.5) 01/12/18 22:31 INR 0.94 (0.93-1.08) 01/12/18 22:31 APTT 29.8 Seconds (25.1-36.5) 01/12/18 22:31 - Constitutional Appears: No Acute Distress - Head Exam Head Exam: ATRAUMATIC, NORMAL INSPECTION, NORMOCEPHALIC - Eye Exam Eye Exam: Normal appearance Additional comments: conjunctiva pallor - ENT Exam ENT Exam: Mucous Membranes Moist - Respiratory Exam Respiratory Exam: Clear to Ausculation Bilateral, NORMAL BREATHING PATTERN. absent: Rhonchi, Wheezes, Respiratory Distress - Cardiovascular Exam Cardiovascular Exam: REGULAR RHYTHM, +S1, +S2. absent: Tachycardia, Diastolic murmur, Murmur - GI/Abdominal Exam GI & Abdominal Exam: Soft, Normal Bowel Sounds. absent: Distended, Firm, Guarding, Tenderness - Extremities Exam Additional comments: right foot dressing clean, dry and intact - Neurological Exam Neurological Exam: Alert, Awake, Oriented x3 - Skin Skin Exam: Dry, Normal Color, Warm Assessment and Plan - Assessment and Plan (Free Text) Assessment: 77 yo male with PMH of CKD stage 4, anemia of chronic disease present with anemia s/p transfusion of 2 units pRBC. Anemia most likely multifactorial. Plan: - possible GI bleed superimposed on anemia of chronic disease - s/p transfusion 2 units of pRBC - GI consulted will go for EGD - will order iron studies and start iron supplementation if needed - will also order epo level due to patient's CKD, may require aranesp - podiatry consulted for right foot ulcer - GI consulted
[2018-01-14 13:43] LABS: FOLATE 3.3 ng/mL
[2018-01-14] MEDS ORDERED: Sodium Chloride 0.9% 1,000 ML IV SCH (14:00)
[2018-01-14] MEDS ORDERED: Propofol 10 mg/ml Inj (20 ML) ONE (14:48)
[2018-01-14] MEDS: Oxycodone/Acetaminophen 5/325 mg Tab PO PRN (15:42)
[2018-01-15] MEDS: Pantoprazole 40 mg EC Tab PO SCH ×2 (05:11→16:48)
[2018-01-15 07:14] LABS: BASO # 0.04 K/mm3 (0.0-2.0); BASO % 0.3 % (0.0-3.0); EOS # 0.7 (0.0-0.7); GRAN # 9.43 (1.4-6.5); GRAN % 67.7 % (50.0-68.0); HEMOGLOBIN 9.2 g/dL (14.0-18.0); LYMPH % 14.5 % (22.0-35.0); MEAN CELL VOLUME 85.9 fl (80.0-105.0); MEAN CORPUSCULAR HEMOGLOBIN 28.2 pg (25.0-35.0); MEAN CORPUSCULAR HGB CONC 32.9 g/dl (31.0-37.0); MEAN PLATELET VOLUME 9.8 fl (7.0-11.0); MONO # 1.7 (0.1-0.6); MONO % 12.5 % (1.0-6.0); RBC 3.26 10^6/uL (3.5-6.1); WHITE BLOOD COUNT 13.9 10^3/ul (4.5-11.0)
[2018-01-15 07:29] LABS: CALCIUM 8.2 mg/dL (8.4-10.5)
--- NOTE | 2018-01-15 08:30 | CP.PCM.PN ---
Subjective - Date & Time of Evaluation Date of Evaluation: 01/15/18 Time of Evaluation: 07:30 - Subjective Subjective: PGY-[address] Knight Patient seen and examined at bedside. No acute distress. Patient reports pain in his right foot. He denies chest pain, sob, n/v, abd pain, headache, dizziness , fever, chills, hematuria, dysuria. He denies any bloody BM, or melenia. Patient states that he would like to go home soon. He is tolerating his diet. He went for EGD yesterday. Patient has not other complaints at this time. Objective - Vital Signs/Intake and Output Vital Signs (last 24 hours): Temp Pulse Resp BP Pulse Ox 98.3 F 74 20 144/87 98 01/15/18 05:40 01/15/18 05:40 01/15/18 05:40 01/15/18 05:40 01/15/18 05:40 Intake and Output: 01/15/18 01/15/18 06:59 18:59 Intake Total 600 Output Total 400 Balance 200 - Medications Medications: Current Medications Amlodipine Besylate (Norvasc) 10 mg PO DAILY [facility] Last Admin: 01/14/18 09:27 Dose: 10 mg Atorvastatin Calcium (Lipitor) 20 mg PO DIN [facility] Last Admin: 01/14/18 17:26 Dose: 20 mg Oxycodone/Acetaminophen (Percocet 5/325 Mg Tab) 1 tab PO BID PRN PRN Reason: Pain, moderate (4-7) Stop: 01/16/18 21:33 Last Admin: 01/14/18 15:42 Dose: 1 tab Pantoprazole Sodium (Protonix Ec Tab) 40 mg PO 0600,1600 [facility] Last Admin: 01/15/18 05:11 Dose: 40 mg - Labs Labs: 01/15/18 06:30 01/15/18 06:30 PT 10.7 SECONDS (9.4-12.5) 01/12/18 22:31 INR 0.94 (0.93-1.08) 01/12/18 22:31 APTT 29.8 Seconds (25.1-36.5) 01/12/18 22:31 - Constitutional Appears: Well, No Acute Distress - Head Exam Head Exam: ATRAUMATIC, NORMOCEPHALIC - Eye Exam Eye Exam: EOMI, Normal appearance - ENT Exam ENT Exam: Mucous Membranes Moist - Respiratory Exam Respiratory Exam: Clear to Ausculation Bilateral, NORMAL BREATHING PATTERN. absent: Decreased Breath Sounds, Rhonchi, Wheezes, Respiratory Distress - Cardiovascular Exam Cardiovascular Exam: REGULAR RHYTHM, +S1, +S2. absent: Bradycardia, Tachycardia , Murmur - GI/Abdominal Exam GI & Abdominal Exam: Soft, Normal Bowel Sounds. absent: Distended, Firm, Guarding, Tenderness - Extremities Exam Extremities Exam: Tenderness Additional comments: left foot dressing clean, dry and intact - Neurological Exam Neurological Exam: Alert, Awake, Oriented x3 - Psychiatric Exam Psychiatric exam: Normal Affect, Normal Mood - Skin Skin Exam: Dry, Normal Color, Warm Assessment and Plan - Assessment and Plan (Free Text) Assessment: 77 yo male with PMH of CKD stage 4, anemia of chronic disease present with anemia s/p transfusion of 2 units pRBC. Anemia most likely multifactorial. Plan: - possible GI bleed superimposed on anemia of chronic disease - s/p transfusion 2 units of pRBC - EGD yesterday showed esogeal, antral and duodenal ulcers - GI consulted, will follow up recommendations - iron studies showed low iron, will start IV iron while inpatient - will also order epo level due to patient's CKD, may require aranesp - podiatry consulted for right foot ulcer - GI consulted case reviewed and discussed with Dr. Knight
--- NOTE | 2018-01-15 08:58 | PN ---
DATE: 01/14/2018 SUBJECTIVE: Patient is a 77-year-old male. Patient seen and examined on the bedside, looking comfortable. Complaining of pain in the right foot. No nausea, vomiting, or diarrhea. No hematuria or hematochezia. Right foot has dressing. Patient is awake and alert. No fever. No chills. No shortness of breath. PHYSICAL EXAMINATION: VITAL SIGNS: Temperature 98.1, pulse 71, respiratory rate 20, blood pressure 125/73, pulse oximetry 97. HEENT: Head: Normocephalic, atraumatic. Eyes, PERRLA. Extraocular muscles intact. Conjunctivae clear. Nose patent. Mucous membrane moist. NECK: Supple. No carotid bruit. No JVD or thyromegaly. CHEST: Bilaterally symmetrical. HEART: S1 and S2 positive. LUNGS: Clear to auscultation. ABDOMEN: Soft. Bowel sounds present. No organomegaly. EXTREMITIES: No edema, no cyanosis except the right foot has dressing. MEDICATIONS: Norvasc, Lipitor, Percocet, and Protonix. LABORATORY DATA: White blood cells 15.7, hemoglobin 9.4, hematocrit 28.2, platelets 226. Sodium 136, potassium 3.7, BUN 35, creatinine 3.0, glucose 86. ASSESSMENT AND PLAN: The patient is a 77-year-old male with leukocytosis, anemia, renal insufficiency, came with severe anemia, status post blood transfusion, had ischemic disease, secondary to severe peripheral vascular disease, status post successful vascular intervention. Metallurgical Laboratory Assistant is on the case. Patient iliac stent and ankle-brachial index, has borderline abnormal right ankle-brachial index, improved from previous study, left small saphenous vein and tibial disease. 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 Patient was seen by endless track vehicle supervisor because of severe anemia. 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 On admission, hemoglobin was 6.5, received one unit of packed red blood cells and will get another unit. Rule out occult gastrointestinal bleeding, history of melena to be considered; rule out peptic ulcer disease, neoplasia, diverticulosis, and arteriovenous malformation. Patient was on soft cardiac diet. Needs close followup. Patient went for esophagogastroduodenoscopy today. May need colonoscopy tomorrow. Has pain of limb, getting Percocet. Dr. Bernard did esophagogastroduodenoscopy with biopsy. It showed esophageal ulcers, antral ulcers, duodenal ulcers, waiting for colonoscopy result. We will repeat labs. PGY2. Patient has chronic kidney disease stage IV. Anemia looks like mostly multifunctional, possibly gastrointestinal bleed superimposed on anemia of chronic disease. Status post transfusion of 2 units of packed red blood cells. GI is on the case. Repeat labs. We will follow up. Shivani Walters MD : 01/14/2018 22:03:12 [email or web address]
--- NOTE | 2018-01-15 10:33 | CP.PCM.PN ---
<AmarjitCeferinojose - Last Filed: 01/15/18 10:26> Subjective - Date & Time of Evaluation Date of Evaluation: 01/15/18 Time of Evaluation: 10:26 - Subjective Subjective: Podiatry progress note: Dr. Irvin/Dr. Pollard 77 year old male patient with PMH of HTN was seen and evaluated for ischemic changes to the right big toe. Patient is seen sitting in a chair working with PT. Patient is AAOx3 and is in NAD. Reports that he has the same level of pain as before. Denies of having any acute overnight events. Denies of any recent F/N /V/C/SOB/CP. Denies of any other pedal complains now. Objective - Vital Signs/Intake and Output Vital Signs (last 24 hours): Temp Pulse Resp BP Pulse Ox 99.2 F 86 16 131/80 98 01/15/18 09:00 01/15/18 09:00 01/15/18 09:00 01/15/18 09:17 01/15/18 09:00 Intake and Output: 01/15/18 01/15/18 06:59 18:59 Intake Total 600 Output Total 400 Balance 200 - Medications Medications: Current Medications Amlodipine Besylate (Norvasc) 10 mg PO DAILY [facility] Last Admin: 01/15/18 09:17 Dose: 10 mg Atorvastatin Calcium (Lipitor) 20 mg PO DIN [facility] Last Admin: 01/14/18 17:26 Dose: 20 mg Iron Sucrose 100 mg/ Sodium (Chloride) 105 mls @ 210 mls/hr IVPB ONCE ONE Stop: 01/15/18 10:28 Oxycodone/Acetaminophen (Percocet 5/325 Mg Tab) 1 tab PO BID PRN PRN Reason: Pain, moderate (4-7) Stop: 01/16/18 21:33 Last Admin: 01/14/18 15:42 Dose: 1 tab Pantoprazole Sodium (Protonix Ec Tab) 40 mg PO 0600,1600 [facility] Last Admin: 01/15/18 05:11 Dose: 40 mg - Labs Labs: 01/15/18 06:30 01/15/18 06:30 PT 10.7 SECONDS (9.4-12.5) 01/12/18 22:31 INR 0.94 (0.93-1.08) 01/12/18 22:31 APTT 29.8 Seconds (25.1-36.5) 01/12/18 22:31 - Constitutional Appears: Well, Non-toxic, No Acute Distress - Extremities Exam Additional comments: Bilateral LE focused exam Vasc: DP and PT faintly palpable, temperature gradient cool to cool, no edema noted to the LE, CFT delayed to the digits Derm: right hallux wound with ischemic changes, wound is small with no sinus tract or undermining with overlying eschar; minimal drainage noted: blue-shawnee erythematous discoloration to the hallux; 4th and 5th toes with resolving gangrene with loosening of gangrenous eschars at distal rojelio, 5th digit noted to have underlying superficial ulceration with removal of eschar, no open lesions noted to the RLE, no fluctanance, no abscess, no clinical signs of infection, left foot digit 3 and 4 appear hyperpigmented with no open lesions, no clinical suspicion of active infection Neuro: gross and protective sensation intact Ortho: severe pain noted with light palpation to the right hallux and generalized forefoot, mild pain on the left forefoot, patient unable to MM secondary to guarding. - Neurological Exam Neurological Exam: Alert, Awake, Oriented x3 - Psychiatric Exam Psychiatric exam: Normal Affect, Normal Mood Assessment and Plan - Assessment and Plan (Free Text) Assessment: 77 year old male with ischemic digits secondary to PVD s/p successful vascular intervention Plan: Patient examined and evaluated Discussed in details with attending Dr. Irvin Labs, vitals and charts reviewed - afebrile, WBC @ 13.9 From previous admission: Vascular- no additional vascular intervention during this time Duplex RLE arterial US- Normal velocities are noted in the right SFA. No significant stenoses were noted IMPRESSION: Patent right external iliac stent and SFA R CAMILA IMPRESSION: 1. Borderline abnormal right CAMILA. Improved from previous study 2. Left SFA and tibial disease No podiatric surgical intervention at this time Continue local wound care - xeroform, DSD to right hallux and 5th digit; A&D ointment to bilateral LE BID Multipodus boots must be worn at all times while in bed Patient will benefit to a long-term facility for physical therapy Podiatry will continue to follow <Sylwia Irvin - Last Filed: 01/18/18 13:40> Objective - Vital Signs/Intake and Output Vital Signs (last 24 hours): Temp Pulse Resp BP Pulse Ox 97.6 F 60 16 139/79 98 01/18/18 12:15 01/18/18 12:15 01/18/18 12:15 01/18/18 12:15 01/18/18 06:01 Intake and Output: 01/18/18 01/18/18 06:59 18:59 Intake Total 1080 Output Total 550 Balance 530 - Medications Medications: Current Medications Amlodipine Besylate (Norvasc) 10 mg PO DAILY [facility] Last Admin: 01/18/18 09:09 Dose: 10 mg Atorvastatin Calcium (Lipitor) 20 mg PO DIN [facility] Last Admin: 01/17/18 17:36 Dose: 20 mg Darbepoetin Matt (Aranesp) 100 mcg SC QWK [facility] Iron Sucrose 100 mg/ Sodium (Chloride) 105 mls @ 210 mls/hr IVPB DAILY [facility] Last Admin: 01/18/18 09:44 Dose: 210 mls/hr Metoprolol Tartrate (Lopressor) 25 mg PO BID [facility] Last Admin: 01/18/18 09:09 Dose: 25 mg Pantoprazole Sodium (Protonix Ec Tab) 40 mg PO 0600,1600 [facility] Last Admin: 01/18/18 05:30 Dose: 40 mg - Labs Labs: 01/18/18 06:30 01/18/18 06:30 PT 10.7 SECONDS (9.4-12.5) 01/12/18 22:31 INR 0.94 (0.93-1.08) 01/12/18 22:31 APTT 29.8 Seconds (25.1-36.5) 01/12/18 22:31 Attending/Attestation - Attestation I have personally seen and examined this patient.: Yes I have fully participated in the care of the patient.: Yes I have reviewed all pertinent clinical information, including history, physical exam and plan: Yes
[2018-01-15] MEDS ORDERED: Peg-Electrolyte Oral Soln 4L (Golytely) PO ONE (14:00)
[2018-01-15] MEDS: Oxycodone/Acetaminophen 5/325 mg Tab PO PRN ×2 (16:51→23:11)
[2018-01-15] MEDS ORDERED: Magnesium Citrate Oral SOL (300 ml) PO STA (21:54)
[2018-01-15] MEDS ORDERED: Bisacodyl 5mg EC Tab PO ONE (21:59)
--- NOTE | 2018-01-15 23:34 | PN ---
DATE: SUBJECTIVE: The patient is a 77-year-old male. The patient seen and examined at the bedside. Looking comfortable. No nausea, vomiting or diarrhea. No hematuria or hematochezia. No swelling of the legs. No chest pain. No palpitation. No headache. No dizziness. No fever. No chills. No dysuria. Denies any blood in the bowel movement or melena. He is tolerating his diet. Went for EGD yesterday. PHYSICAL EXAMINATION: VITAL SIGNS: Temperature 98.3, pulse 74, respiratory rate 20, blood pressure 144/87, pulse oximetry of 98. HEENT: Head: Normocephalic atraumatic. Eyes: PERRLA. Extraocular muscles intact. Conjunctivae clear. Nose patent. Mucous membrane moist. NECK: Supple. No carotid bruit. No JVD or thyromegaly. CHEST: Bilaterally symmetrical. HEART: S1 and S2 positive. LUNGS: Clear to auscultation. ABDOMEN: Soft. Bowel sounds present. No organomegaly. EXTREMITIES: No edema. No cyanosis. NEUROLOGIC: The patient awake, alert. Moving all 4 extremities. No focal deficit. MEDICATIONS: Norvasc, Lipitor, Percocet, pantoprazole. LABORATORY DATA: White blood cells 13.9, hemoglobin 9.2, hematocrit 28, platelets 287. Sodium 138, potassium 4, BUN 31, creatinine 3.2, glucose 93. ASSESSMENT AND PLAN: Mr. Geovanna Guerra is 77-year-old male with leukocytosis, anemia, renal insufficiency. He had a chronic kidney disease stage IV, anemia of chronic disease, came with hemoglobin 6.5, status post packed RBC transfusion 2 units. Anemia looks like multifactorial, rule out gastrointestinal bleeding, superimposed on chronic disease. EGD showed antral and duodenal ulcers. Iron studies shows iron deficiency, started IV iron while inpatient. Due to chronic kidney disease, the patient will get EPO. Podiatry consult for the right foot ulcers. Hematology input appreciated. Seen by the Podiatry also. We will continue present treatment. Gastrointestinal and deep venous thrombosis prophylaxis. Repeat labs. We will follow up. Shivani Walters MD [facility] # [phone]
[2018-01-16] MEDS: Pantoprazole 40 mg EC Tab PO SCH ×2 (05:28→16:57)
[2018-01-16] MEDS ORDERED: Bisacodyl 5mg EC Tab PO ONE (06:00)
[2018-01-16 06:33] LABS: BASO # 0.04 K/mm3 (0.0-2.0); BASO % 0.3 % (0.0-3.0); EOS # 0.9 (0.0-0.7); EOS % 6.8 % (1.5-5.0); GRAN # 7.9 (1.4-6.5); GRAN % 63.2 % (50.0-68.0); HEMOGLOBIN 9.8 g/dL (14.0-18.0); LYMPH # 2.2 (1.2-3.4); LYMPH % 17.3 % (22.0-35.0); MEAN CELL VOLUME 86.8 fl (80.0-105.0); MEAN CORPUSCULAR HEMOGLOBIN 28.1 pg (25.0-35.0); MEAN CORPUSCULAR HGB CONC 32.3 g/dl (31.0-37.0); MONO # 1.6 (0.1-0.6); MONO % 12.4 % (1.0-6.0); RBC 3.49 10^6/uL (3.5-6.1); RED CELL DISTRIBUTION WIDTH 15.9 % (11.5-14.5); WHITE BLOOD COUNT 12.5 10^3/ul (4.5-11.0)
[2018-01-16 06:46] LABS: ALBUMIN 3.2 g/dL (3.0-4.8); CALCIUM 8.7 mg/dL (8.4-10.5)
[2018-01-16] MEDS: Oxycodone/Acetaminophen 5/325 mg Tab PO PRN (09:53)
--- NOTE | 2018-01-16 12:07 | CP.PCM.PN ---
Subjective - Date & Time of Evaluation Date of Evaluation: 01/16/18 Time of Evaluation: 08:00 - Subjective Subjective: PGY-[address] Knight Patient seen and examined at bedside. No acute distress. Patient reports pain in his right foot. He denies chest pain, sob, n/v, abd pain, headache, dizziness , fever, chills, hematuria, dysuria. He denies any bloody BM, or melenia. Patient states that he would like to go home soon. Patient is on clear liquid diet, he is tolerating. He went for EGD, scheduled for colonoscopy. Patient has not other complaints at this time. Objective - Vital Signs/Intake and Output Vital Signs (last 24 hours): Temp Pulse Resp BP Pulse Ox 98.0 F 68 19 115/63 98 01/16/18 05:59 01/16/18 05:59 01/16/18 05:59 01/16/18 09:28 01/16/18 05:59 Intake and Output: 01/16/18 01/16/18 06:59 18:59 Intake Total 540 Output Total 2 Balance 538 - Medications Medications: Current Medications Amlodipine Besylate (Norvasc) 10 mg PO DAILY [facility] Last Admin: 01/16/18 09:28 Dose: 10 mg Atorvastatin Calcium (Lipitor) 20 mg PO DIN [facility] Last Admin: 01/15/18 16:48 Dose: 20 mg Darbepoetin Matt (Aranesp) 100 mcg SC QWK [facility] Iron Sucrose 100 mg/ Sodium (Chloride) 105 mls @ 210 mls/hr IVPB DAILY [facility] Last Admin: 01/16/18 09:28 Dose: 210 mls/hr Oxycodone/Acetaminophen (Percocet 5/325 Mg Tab) 1 tab PO BID PRN PRN Reason: Pain, moderate (4-7) Stop: 01/16/18 21:33 Last Admin: 01/16/18 09:53 Dose: 1 tab Pantoprazole Sodium (Protonix Ec Tab) 40 mg PO 0600,1600 [facility] Last Admin: 01/16/18 05:28 Dose: 40 mg - Labs Labs: 01/16/18 05:30 01/16/18 05:30 PT 10.7 SECONDS (9.4-12.5) 01/12/18 22:31 INR 0.94 (0.93-1.08) 01/12/18 22:31 APTT 29.8 Seconds (25.1-36.5) 01/12/18 22:31 - Constitutional Appears: No Acute Distress - Head Exam Head Exam: ATRAUMATIC, NORMOCEPHALIC - Eye Exam Eye Exam: Normal appearance - ENT Exam ENT Exam: Mucous Membranes Moist - Respiratory Exam Respiratory Exam: Clear to Ausculation Bilateral. absent: Rhonchi, Wheezes, Respiratory Distress - Cardiovascular Exam Cardiovascular Exam: REGULAR RHYTHM, +S1, +S2. absent: Bradycardia, Tachycardia , Murmur - GI/Abdominal Exam GI & Abdominal Exam: Soft, Normal Bowel Sounds. absent: Distended, Firm, Tenderness - Neurological Exam Neurological Exam: Alert, Awake, Oriented x3 - Skin Skin Exam: Dry, Intact (right foot dressed, clean dry and intact), Normal Color , Warm Assessment and Plan - Assessment and Plan (Free Text) Assessment: 77 yo male with PMH of CKD stage 4, anemia of chronic disease present with anemia s/p transfusion of 2 units pRBC. Anemia most likely multifactorial. iron deficiency CKD stage 4 esophageal, antral and duodenal ulcers Plan: - possible GI bleed superimposed on anemia of chronic disease - s/p showed esophageal, antral and duodenal ulcers - colonoscopy scheduled for today - GI consulted, will follow up recommendations - iron studies showed low iron, will start IV iron while inpatient - epo level low due to patient's CKD - will start aranesp 100mcg weekly - podiatry consulted for right foot ulcer case reviewed and discussed with Dr. Knight
--- NOTE | 2018-01-16 13:04 | CP.PCM.PN ---
<Harinder Ocasio - Last Filed: 01/16/18 13:01> Subjective - Date & Time of Evaluation Date of Evaluation: 01/16/18 Time of Evaluation: 13:01 - Subjective Subjective: Podiatry progress note: Dr. Irvin/Dr. Pollard 77 year old male patient with PMH of HTN was seen and evaluated for ischemic changes to bilateral foot digits. Patient is AAOx3 and is in NAD. Reports that he has the same level of pain as before. Denies of having any acute overnight events. Denies of any recent F/N/V/C/SOB/CP. Denies of any other pedal complains now. Objective - Vital Signs/Intake and Output Vital Signs (last 24 hours): Temp Pulse Resp BP Pulse Ox 98 F 65 18 129/69 98 01/16/18 12:08 01/16/18 12:08 01/16/18 12:08 01/16/18 12:08 01/16/18 05:59 Intake and Output: 01/16/18 01/16/18 06:59 18:59 Intake Total 540 Output Total 2 Balance 538 - Medications Medications: Current Medications Amlodipine Besylate (Norvasc) 10 mg PO DAILY [facility] Last Admin: 01/16/18 09:28 Dose: 10 mg Atorvastatin Calcium (Lipitor) 20 mg PO DIN [facility] Last Admin: 01/15/18 16:48 Dose: 20 mg Darbepoetin Matt (Aranesp) 100 mcg SC QWK [facility] Iron Sucrose 100 mg/ Sodium (Chloride) 105 mls @ 210 mls/hr IVPB DAILY [facility] Last Admin: 01/16/18 09:28 Dose: 210 mls/hr Oxycodone/Acetaminophen (Percocet 5/325 Mg Tab) 1 tab PO BID PRN PRN Reason: Pain, moderate (4-7) Stop: 01/16/18 21:33 Last Admin: 01/16/18 09:53 Dose: 1 tab Pantoprazole Sodium (Protonix Ec Tab) 40 mg PO 0600,1600 [facility] Last Admin: 01/16/18 05:28 Dose: 40 mg - Labs Labs: 01/16/18 05:30 01/16/18 05:30 PT 10.7 SECONDS (9.4-12.5) 01/12/18 22:31 INR 0.94 (0.93-1.08) 01/12/18 22:31 APTT 29.8 Seconds (25.1-36.5) 01/12/18 22:31 - Constitutional Appears: Well, Non-toxic, No Acute Distress - Extremities Exam Additional comments: Bilateral LE focused exam Vasc: DP and PT faintly palpable, temperature gradient cool to cool, no edema noted to the LE, CFT delayed to the digits Derm: right hallux wound with ischemic changes, wound is small with no sinus tract or undermining with overlying eschar; minimal drainage noted: blue-shawnee erythematous discoloration to the hallux; 4th and 5th toes with resolving gangrene with loosening of gangrenous eschars at distal rojelio, 5th digit noted to have underlying superficial ulceration with removal of eschar, no open lesions noted to the RLE, no fluctanance, no abscess, no clinical signs of infection, left foot digit 3 and 4 appear hyperpigmented with no open lesions, no clinical suspicion of active infection Neuro: gross and protective sensation intact Ortho: severe pain noted with light palpation to the right hallux and generalized forefoot, mild pain on the left forefoot, patient unable to MM secondary to guarding. - Neurological Exam Neurological Exam: Alert, Awake, Oriented x3 - Psychiatric Exam Psychiatric exam: Normal Affect, Normal Mood Assessment and Plan - Assessment and Plan (Free Text) Assessment: 77 year old male with ischemic digits secondary to PVD s/p successful vascular intervention Plan: Patient examined and evaluated Discussed in details with attending Dr. Pollard Labs, vitals and charts reviewed - afebrile, WBC @ 12.5 From previous admission: Vascular- no additional vascular intervention during this time Duplex RLE arterial US- Normal velocities are noted in the right SFA. No significant stenoses were noted IMPRESSION: Patent right external iliac stent and SFA R CAMILA IMPRESSION: 1. Borderline abnormal right CAMILA. Improved from previous study 2. Left SFA and tibial disease No podiatric surgical intervention at this time Continue local wound care - xeroform, DSD to right hallux and 5th digit; A&D ointment to bilateral LE Multipodus boots must be worn at all times while in bed Patient will benefit to a long-term facility for physical therapy Podiatry will continue to follow <Jason Pollard - Last Filed: 04/21/18 08:40> Objective - Vital Signs/Intake and Output Vital Signs (last 24 hours): Temp Pulse Resp BP Pulse Ox 97.8 F 62 20 132/75 98 01/16/18 18:25 01/17/18 06:00 01/16/18 18:25 01/16/18 19:06 01/16/18 05:59 Intake and Output: 01/17/18 01/17/18 06:59 18:59 Intake Total 480 Output Total 200 Balance 280 - Medications Medications: Current Medications Amlodipine Besylate (Norvasc) 10 mg PO DAILY [facility] Last Admin: 01/16/18 09:28 Dose: 10 mg Atorvastatin Calcium (Lipitor) 20 mg PO DIN [facility] Last Admin: 01/16/18 16:57 Dose: 20 mg Darbepoetin Matt (Aranesp) 100 mcg SC QWK [facility] Iron Sucrose 100 mg/ Sodium (Chloride) 105 mls @ 210 mls/hr IVPB DAILY [facility] Last Admin: 01/16/18 09:28 Dose: 210 mls/hr Metoprolol Tartrate (Lopressor) 25 mg PO BID [facility] Pantoprazole Sodium (Protonix Ec Tab) 40 mg PO 0600,1600 [facility] Last Admin: 01/17/18 06:02 Dose: 40 mg - Labs Labs: 01/16/18 05:30 01/17/18 07:00 PT 10.7 SECONDS (9.4-12.5) 01/12/18 22:31 INR 0.94 (0.93-1.08) 01/12/18 22:31 APTT 29.8 Seconds (25.1-36.5) 01/12/18 22:31 Attending/Attestation - Attestation I have personally seen and examined this patient.: Yes I have fully participated in the care of the patient.: Yes I have reviewed all pertinent clinical information, including history, physical exam and plan: Yes
[2018-01-17] MEDS ORDERED: Oxycodone/Acetaminophen 5/325 mg Tab PO STA ×3 (01:48→21:50)
[2018-01-17] MEDS: Pantoprazole 40 mg EC Tab PO SCH ×2 (06:02→17:37)
[2018-01-17 08:26] LABS: ALBUMIN 3.3 g/dL (3.0-4.8); CALCIUM 8.6 mg/dL (8.4-10.5)
[2018-01-17 09:06] LABS: BASO # 0.03 K/mm3 (0.0-2.0); BASO % 0.2 % (0.0-3.0); EOS # 0.8 (0.0-0.7); EOS % 5.4 % (1.5-5.0); GRAN # 10.27 (1.4-6.5); GRAN % 70.8 % (50.0-68.0); HEMOGLOBIN 9.9 g/dL (14.0-18.0); LYMPH # 1.7 (1.2-3.4); LYMPH % 11.7 % (22.0-35.0); MEAN CELL VOLUME 87.4 fl (80.0-105.0); MEAN CORPUSCULAR HEMOGLOBIN 28.4 pg (25.0-35.0); MEAN CORPUSCULAR HGB CONC 32.5 g/dl (31.0-37.0); MEAN PLATELET VOLUME 9.8 fl (7.0-11.0); MONO # 1.7 (0.1-0.6); MONO % 11.9 % (1.0-6.0); RBC 3.49 10^6/uL (3.5-6.1); RED CELL DISTRIBUTION WIDTH 15.7 % (11.5-14.5); WHITE BLOOD COUNT 14.5 10^3/ul (4.5-11.0)
--- NOTE | 2018-01-17 09:53 | CP.PCM.PN ---
<Brigido Villa - Last Filed: 01/17/18 09:49> Subjective - Date & Time of Evaluation Date of Evaluation: 01/17/18 Time of Evaluation: 09:50 - Subjective Subjective: Podiatry progress note: Dr. Irvin/Dr. Pollard 77 year old male patient with PMHx of HTN was seen and evaluated for ischemic changes to bilateral foot digits. Patient resting comfortably, NAD. NAEON. Reports continued pain to right foot, apprehensive to have dressing changed today. Multipodus boots absent to both feet; refusing to wear them due to pain. Denies F/N/V/C/SOB/CP. Offers no other pedal complaints at this time. Objective - Vital Signs/Intake and Output Vital Signs (last 24 hours): Temp Pulse Resp BP Pulse Ox 97.8 F 77 20 138/96 H 98 01/16/18 18:25 01/17/18 09:18 01/16/18 18:25 01/17/18 09:19 01/16/18 05:59 Intake and Output: 01/17/18 01/17/18 06:59 18:59 Intake Total 480 Output Total 200 Balance 280 - Medications Medications: Current Medications Amlodipine Besylate (Norvasc) 10 mg PO DAILY [facility] Last Admin: 01/17/18 09:19 Dose: 10 mg Atorvastatin Calcium (Lipitor) 20 mg PO DIN [facility] Last Admin: 01/16/18 16:57 Dose: 20 mg Darbepoetin Matt (Aranesp) 100 mcg SC QWK [facility] Iron Sucrose 100 mg/ Sodium (Chloride) 105 mls @ 210 mls/hr IVPB DAILY [facility] Last Admin: 01/17/18 09:22 Dose: 210 mls/hr Metoprolol Tartrate (Lopressor) 25 mg PO BID [facility] Last Admin: 01/17/18 09:18 Dose: 25 mg Pantoprazole Sodium (Protonix Ec Tab) 40 mg PO 0600,1600 [facility] Last Admin: 01/17/18 06:02 Dose: 40 mg - Labs Labs: 01/17/18 07:00 01/17/18 07:00 PT 10.7 SECONDS (9.4-12.5) 01/12/18 22:31 INR 0.94 (0.93-1.08) 04/16/18 22:31 APTT 29.8 Seconds (25.1-36.5) 01/12/18 22:31 - Constitutional Appears: Well, Non-toxic, No Acute Distress - Extremities Exam Additional comments: Bilateral LE focused exam Vasc: DP and PT faintly palpable, temperature gradient cool to cool, no edema noted to the LE, CFT delayed to the digits Derm: right hallux wound with demarcated dry eschar at distal medial tuft; 4th and 5th toes with resolving gangrene with loosening of gangrenous eschars at distal rojelio, 5th digit noted to have underlying superficial ulceration with removal of eschar, no open lesions noted to the RLE, no fluctanance, no abscess , no clinical signs of infection, left foot digit 3 and 4 appear hyperpigmented with no open lesions, no clinical suspicion of active infection Neuro: gross and protective sensation intact Ortho: severe pain noted with light palpation to the right hallux and generalized forefoot, mild pain on the left forefoot, patient unable to MM secondary to guarding. - Neurological Exam Neurological Exam: Alert, Awake, Oriented x3 - Psychiatric Exam Psychiatric exam: Normal Affect, Normal Mood Assessment and Plan - Assessment and Plan (Free Text) Assessment: 77 year old male with right foot ischemia and gangrenous changes to 1st, 4th, 5th digits secondary to PVD Plan: Patient examined and evaluated with attending Dr. Pollard WBC increasing 14.5 (yesterday 01/16 @ 12.5) From previous admission: Vascular- no additional vascular intervention during this time Duplex RLE arterial US- Normal velocities are noted in the right SFA. No significant stenoses were noted IMPRESSION: Patent right external iliac stent and SFA R CAMILA IMPRESSION: 1. Borderline abnormal right CAMILA. Improved from previous study 2. Left SFA and tibial disease No podiatric surgical intervention at this time Continue local wound care - xeroform, DSD to right hallux and 5th digit; A&D ointment to bilateral LE Multipodus boots must be worn at all times while in bed; patient refusing despite education Patient will benefit to a long-term facility for physical therapy Podiatry will continue to follow <Jason Pollard - Last Filed: 01/17/18 10:35> Objective - Vital Signs/Intake and Output Vital Signs (last 24 hours): Temp Pulse Resp BP Pulse Ox 97.8 F 77 20 138/96 H 98 04/20/18 18:25 01/17/18 09:18 01/16/18 18:25 01/17/18 09:19 01/16/18 05:59 Intake and Output: 01/17/18 01/17/18 06:59 18:59 Intake Total 480 Output Total 200 Balance 280 - Medications Medications: Current Medications Amlodipine Besylate (Norvasc) 10 mg PO DAILY [facility] Last Admin: 01/17/18 09:19 Dose: 10 mg Atorvastatin Calcium (Lipitor) 20 mg PO DIN [facility] Last Admin: 01/16/18 16:57 Dose: 20 mg Darbepoetin Matt (Aranesp) 100 mcg SC QWK [facility] Iron Sucrose 100 mg/ Sodium (Chloride) 105 mls @ 210 mls/hr IVPB DAILY [facility] Last Admin: 01/17/18 09:22 Dose: 210 mls/hr Metoprolol Tartrate (Lopressor) 25 mg PO BID [facility] Last Admin: 01/17/18 09:18 Dose: 25 mg Pantoprazole Sodium (Protonix Ec Tab) 40 mg PO 0600,1600 [facility] Last Admin: 01/17/18 06:02 Dose: 40 mg - Labs Labs: 01/17/18 07:00 01/17/18 07:00 PT 10.7 SECONDS (9.4-12.5) 01/12/18 22:31 INR 0.94 (0.93-1.08) 01/12/18 22:31 APTT 29.8 Seconds (25.1-36.5) 01/12/18 22:31 Attending/Attestation - Attestation I have personally seen and examined this patient.: Yes I have fully participated in the care of the patient.: Yes I have reviewed all pertinent clinical information, including history, physical exam and plan: Yes
--- NOTE | 2018-01-17 19:05 | PN ---
DATE: SUBJECTIVE: The patient is 77-year-old male. The patient is seen and examined on the bedside. Looking comfortable. No nausea, vomiting, or diarrhea. No hematuria or hematochezia. No swelling of the leg. No chest pain. No palpitation. No headache. No dizziness. Complaining about foot pain. Has dressing. Seen by Dr. Jason Pollard, junior accountant bookkeeper. The patient has ischemic changes to bilateral foot digits. Resting comfortably. Reports continued pain in the right foot. Apprehensive to have dressing change today. Multi Podus boots absent to both feet. Refusing to wear them due to pain. No fever. No chills. PHYSICAL EXAMINATION: VITAL SIGNS: Temperature 97.8, pulse 77, respiratory rate 20, blood pressure 138/96, pulse oximetry 98. HEENT: Head normocephalic, atraumatic. Eyes PERRLA. Extraocular muscles intact. Conjunctivae clear. Nose patent. Mucous membrane moist. NECK: Supple. No carotid bruit. No JVD or thyromegaly. CHEST: Bilaterally symmetrical. HEART: S1 and S2 positive. LUNGS: Clear to auscultation. ABDOMEN: Soft. Bowel sounds positive. No organomegaly. EXTREMITIES: No edema. No cyanosis. NEUROLOGICAL: The patient is awake and alert. Moving all 4 extremities. No focal deficits. LABORATORY DATA: White blood cells 14.5, hemoglobin 9.9, hematocrit 30.5, platelets 389. Sodium 139, potassium 3.8, BUN 30, creatinine 3.9, glucose 89. MEDICATIONS: Norvasc, Lipitor, Aranesp, iron, metoprolol, and pantoprazole. ASSESSMENT AND PLAN: Mr. Geovanna Guerra is a 77-year-old male with leukocytosis, anemia, renal insufficiency. Has ischemic changes in both toes, especially right. Getting dressing change from Podiatry. Advised to have Podus, but the patient is refusing. The patient has leukocytosis. Infectious disease consult called to rule out the patient does not have infectious process. Duplex of extremities was done on last admission, No significant stenoses were noted. The patient has a right external iliac stent , superficial femoral artery. Borderline abnormal right ankle-brachial index, improved from the previous study. Left superficial femoral artery and tibial disease. Severe anemia, status post blood transfusion. Gastroenterology is on the case to know the cause of anemia. Chronic kidney disease stage IV. Anemia is multifactorial. Got 2 units of packed RBC and getting iron infusion. Esophageal, antral, and duodenal ulcers as by Dr. Bernard. I appreciated GI and podiatry input. Discussion done with the patient's and the patient himself. Needs colonoscopy, getting prepared over the weekend. Out of bed. Physical therapy. Repeat labs. Pain management. We will follow up. Shivani Walters MD MTDD
--- NOTE | 2018-01-17 20:06 | CON ---
DATE: 01/17/2018 LOCATION: Patient is in bed, was seen early this morning in room 268, bed 1. CHIEF COMPLAINT: Foot pain times several days. HISTORY OF PRESENT ILLNESS: This is a 77-year-old male who appears much, much older than his stated age, who was seen early this morning in 268, bed 1, with past medical history of peripheral vascular disease, hypertension, long-time smoker, kidney disease which is stage 4, recent hospitalization with a right foot cellulitis, had endoscopy on the 01/14/2018 which showed anemia and esophageal ulcers. Infectious Disease consultation was requested because of foot pain. REVIEW OF SYSTEMS: Reveal there has been no fevers and no chills. No nausea or vomiting or chest pain and no headaches or blurred vision. Twelve-point review of systems has been performed. PAST MEDICAL HISTORY: Significant for stage 4 kidney disease, recent hospitalization for right foot cellulitis, long-term tobacco use, hypertension, peripheral vascular disease in the past. PAST SURGICAL HISTORY: Significant for angioplasty with both lower extremities. Right hip surgery. ALLERGIES: PATIENT HAS NO KNOWN ALLERGIES. MEDICATIONS: At home include amlodipine, Norvasc, oxycodone. PHYSICAL EXAMINATION: VITAL SIGNS: Patient is in bed with a temperature of 98, blood pressure is 130/70, respiratory rate of 20, and heart rate of 86. HEENT: Unremarkable. NECK: Supple. LUNGS: Have decreased breath sounds. HEART: Normal S1, S2. ABDOMEN: Soft, nontender. LABORATORY EXAMINATION: Reveals a white count of 12,500, hemoglobin of 9, platelets of 321. Chemistries reveal a BUN of 30, creatinine of 3.9. Urinalysis is noted. Examination of the right foot reveals a dry gangrene of the big toe, not foul odorous, no erythema, no evidence of infection. ASSESSMENT AND PLAN: This is a 77-year-old male with peripheral vascular disease, hypertension, long-time smoker, stage 4 kidney disease, status post endoscopy. 1. Right foot first toe dry gangrene. No evidence of an active infection in a patient with esophageal, antral, and duodenal ulcer, status post endoscopy. Currently off of antibiotics. We will continue to keep the patient off antibiotics. 2. Vascular and podiatric consultation. No antibiotics are indicated for this dry gangrene at this point. We will discuss with Vascular Surgery regarding blood supply and Podiatry. Overall, prognosis is poor for this patient who appears much, much older than his stated age. Popeye Barber, MD : 01/17/2018 8:34:49 [facility] # [id number]
--- NOTE | 2018-01-17 21:50 | CP.PCM.PN ---
Subjective - Date & Time of Evaluation Date of Evaluation: 01/17/18 Time of Evaluation: 22:02 - Subjective Subjective: Patient was seen at bedside. He is asking for pain medicine. He has pain in right foot . Has no other complaints now. Received percocet for same pain in the morning, which helped him. No other complaints now. Medical record was reviewed. This 77 year old male was admitted for hemoglobin of 6.5. Has PMH of CKD IV, anemia,HTN, PVD, chronic cellulitis/gangrene of right foot, smoker. Objective - Vital Signs/Intake and Output Vital Signs (last 24 hours): Temp Pulse Resp BP Pulse Ox 98.2 F 65 20 134/81 98 01/17/18 18:00 01/17/18 18:00 01/17/18 18:00 01/17/18 18:00 01/16/18 05:59 - Medications Medications: Current Medications Amlodipine Besylate (Norvasc) 10 mg PO DAILY [facility] Last Admin: 01/17/18 09:19 Dose: 10 mg Atorvastatin Calcium (Lipitor) 20 mg PO DIN [facility] Last Admin: 01/17/18 17:36 Dose: 20 mg Darbepoetin Matt (Aranesp) 100 mcg SC QWK [facility] Iron Sucrose 100 mg/ Sodium (Chloride) 105 mls @ 210 mls/hr IVPB DAILY [facility] Last Admin: 01/17/18 09:22 Dose: 210 mls/hr Metoprolol Tartrate (Lopressor) 25 mg PO BID [facility] Last Admin: 01/17/18 17:36 Dose: 25 mg Pantoprazole Sodium (Protonix Ec Tab) 40 mg PO 0600,1600 [facility] Last Admin: 01/17/18 17:37 Dose: 40 mg - Labs Labs: 01/17/18 07:00 01/17/18 07:00 PT 10.7 SECONDS (9.4-12.5) 01/12/18 22:31 INR 0.94 (0.93-1.08) 01/12/18 22:31 APTT 29.8 Seconds (25.1-36.5) 01/12/18 22:31 Micro Results 01/13/18 08:00 Blood Blood Culture - Preliminary NO GROWTH AFTER 4 DAYS 01/13/18 07:45 Blood Blood Culture - Preliminary NO GROWTH AFTER 4 DAYS Most Recent Lab Values WBC 14.5 10^3/ul (4.5-11.0) H 01/17/18 07:00 RBC 3.49 10^6/uL (3.5-6.1) L 01/17/18 07:00 Hgb 9.9 g/dL (14.0-18.0) L 01/17/18 07:00 Hct 30.5 % (42.0-52.0) L 01/17/18 07:00 MCV 87.4 fl (80.0-105.0) 01/17/18 07:00 MCH 28.4 pg (25.0-35.0) 01/17/18 07:00 MCHC 32.5 g/dl (31.0-37.0) 01/17/18 07:00 RDW 15.7 % (11.5-14.5) H 01/17/18 07:00 Plt Count 389 10^3/uL (120.0-450.0) 01/17/18 07:00 MPV 9.8 fl (7.0-11.0) 01/17/18 07:00 Gran % 70.8 % (50.0-68.0) H 01/17/18 07:00 Lymph % (Auto) 11.7 % (22.0-35.0) L 01/17/18 07:00 Gilchrist % (Auto) 11.9 % (1.0-6.0) H 01/17/18 07:00 Eos % (Auto) 5.4 % (1.5-5.0) H 01/17/18 07:00 Baso % (Auto) 0.2 % (0.0-3.0) 01/17/18 07:00 Gran # 10.27 (1.4-6.5) H 01/17/18 07:00 Lymph # (Auto) 1.7 (1.2-3.4) 01/17/18 07:00 Gilchrist # (Auto) 1.7 (0.1-0.6) H 01/17/18 07:00 Eos # (Auto) 0.8 (0.0-0.7) H 01/17/18 07:00 Baso # (Auto) 0.03 K/mm3 (0.0-2.0) 01/17/18 07:00 ESR 85 mm/hr (0.00-15.0) H 01/17/18 07:00 PT 10.7 SECONDS (9.4-12.5) 01/12/18 22:31 INR 0.94 (0.93-1.08) 01/12/18 22:31 APTT 29.8 Seconds (25.1-36.5) 01/12/18 22:31 Sodium 139 mmol/L (132-148) 01/17/18 07:00 Potassium 3.8 mmol/L (3.6-5.0) 01/17/18 07:00 Chloride 101 mmol/L (98-107) 01/17/18 07:00 Carbon Dioxide 26 mmol/L (21-33) 01/17/18 07:00 Anion Gap 15 (10-20) 01/17/18 07:00 BUN 30 mg/dL (7-21) H 01/17/18 07:00 Creatinine 3.9 mg/dl (0.8-1.5) H 01/17/18 07:00 Est GFR ( Amer) 18 01/17/18 07:00 Est GFR (Non-Af Amer) 15 01/17/18 07:00 POC Glucose (mg/dL) 112 mg/dL (65-110) H 01/16/18 21:54 Random Glucose 89 mg/dL (70-110) 01/17/18 07:00 Hemoglobin A1c 5.9 % (4.2-6.5) 01/14/18 06:30 Calcium 8.6 mg/dL (8.4-10.5) 01/17/18 07:00 Iron 22 ug/dL (45-180) L 01/14/18 06:30 TIBC 159 ug/dL (261-462) L 01/14/18 06:30 % Saturation 14 % (20-55) L 01/14/18 06:30 Erythropoietin 2.8 mIU/mL (2.6-18.5) 01/14/18 06:30 Total Bilirubin 0.4 mg/dL (0.2-1.3) 01/17/18 07:00 AST 30 U/L (17-59) 01/17/18 07:00 ALT 36 U/L (7-56) 01/17/18 07:00 Alkaline Phosphatase 127 U/L (38-126) H 01/17/18 07:00 C-Reactive Protein 41.50 mg/L (0.0-9.9) H 01/17/18 07:00 Total Protein 6.6 g/dL (5.8-8.3) 01/17/18 07:00 Albumin 3.3 g/dL (3.0-4.8) 01/17/18 07:00 Globulin 3.3 gm/dL 01/17/18 07:00 Albumin/Globulin Ratio 1.0 (1.1-1.8) L 01/17/18 07:00 Triglycerides 114 mg/dL (35-160) 01/14/18 06:30 Cholesterol 128 mg/dL (130-200) L 01/14/18 06:30 LDL Cholesterol Direct 49 mg/dL (0-129) 01/14/18 06:30 HDL Cholesterol 42 mg/dL (29-60) 01/14/18 06:30 Vitamin B12 262 pg/mL (239-931) 01/14/18 06:30 Folate 3.3 ng/mL 01/14/18 06:30 TSH 3rd Generation 4.61 mIU/mL (0.46-4.68) 01/15/18 06:30 Urine Color Yellow (YELLOW) 01/12/18 22:30 Urine Appearance Clear (CLEAR) 01/12/18 22:30 Urine pH 6.5 (4.7-8.0) 01/12/18 22:30 Ur Specific Paradox 1.015 (1.005-1.035) 01/12/18 22:30 Urine Protein 100 mg/dL (<30 mg/dL) H 01/12/18 22:30 Urine Glucose (UA) Negative mg/dL (NEGATIVE) 01/12/18 22:30 Urine Ketones Negative mg/dL (NEGATIVE) 01/12/18 22:30 Urine Blood Small (NEGATIVE) H 01/12/18 22:30 Urine Nitrate Negative (NEGATIVE) 01/12/18 22:30 Urine Bilirubin Negative (NEGATIVE) 01/12/18 22:30 Urine Urobilinogen 0.2 E.U./dL (<1 E.U./dL) 01/12/18 22:30 Ur Leukocyte Esterase Negative Tiffany/uL (NEGATIVE) 01/12/18 22:30 Urine RBC 0 - 2 /hpf (0-2) 01/12/18 22:30 Urine WBC 1 - 3 /hpf (0-6) 01/12/18 22:30 Ur Epithelial Cells 0 - 2 /hpf (0-5) 01/12/18 22:30 Urine Bacteria Rare (NEG) 01/12/18 22:30 Blood Type B POSITIVE 01/12/18 21:56 Antibody Screen Negative 01/12/18 21:56 Crossmatch See Detail 01/12/18 21:56 BBK History Checked Patient has bt 01/12/18 21:56 - Constitutional Appears: Well, No Acute Distress - Head Exam Head Exam: ATRAUMATIC, NORMAL INSPECTION, NORMOCEPHALIC - Eye Exam Eye Exam: Normal appearance - ENT Exam ENT Exam: Normal External Ear Exam - Neck Exam Neck Exam: Normal Inspection - Respiratory Exam Respiratory Exam: NORMAL BREATHING PATTERN - Cardiovascular Exam Cardiovascular Exam: absent: JVD - GI/Abdominal Exam GI & Abdominal Exam: absent: Distended - Rectal Exam Rectal Exam: Deferred - Exam Additional comments: Deferred. - Extremities Exam Additional comments: Right foot dressing clean and dry. - Back Exam Back Exam: NORMAL INSPECTION - Neurological Exam Neurological Exam: Alert, Awake, Oriented x3 - Psychiatric Exam Psychiatric exam: Normal Affect, Normal Mood - Skin Skin Exam: Normal Color Assessment and Plan - Assessment and Plan (Free Text) Assessment: Right foot pain. CKD IV. Anemia. HTN. PVD. Right foot cellulitis/gangrene. Smoker. Plan: Percocet 5/325 i PO x1. Continue present management.
[2018-01-18] MEDS ORDERED: Oxycodone/Acetaminophen 5/325 mg Tab PO STA (03:49)
[2018-01-18] MEDS: Pantoprazole 40 mg EC Tab PO SCH ×2 (05:30→17:42)
[2018-01-18 07:25] LABS: BASO # 0.04 K/mm3 (0.0-2.0); BASO % 0.2 % (0.0-3.0); EOS # 0.9 (0.0-0.7); EOS % 5.5 % (1.5-5.0); GRAN # 11.48 (1.4-6.5); GRAN % 68.3 % (50.0-68.0); HEMOGLOBIN 9.6 g/dL (14.0-18.0); LYMPH % 11.8 % (22.0-35.0); MEAN CELL VOLUME 88.2 fl (80.0-105.0); MEAN CORPUSCULAR HEMOGLOBIN 28.2 pg (25.0-35.0); MEAN PLATELET VOLUME 9.4 fl (7.0-11.0); MONO # 2.4 (0.1-0.6); MONO % 14.2 % (1.0-6.0); RBC 3.4 10^6/uL (3.5-6.1); RED CELL DISTRIBUTION WIDTH 15.4 % (11.5-14.5); WHITE BLOOD COUNT 16.8 10^3/ul (4.5-11.0)
[2018-01-18 07:36] LABS: ALB/GLOB RATIO 0.9 (1.1-1.8); ALBUMIN 3.3 g/dL (3.0-4.8); CALCIUM 8.6 mg/dL (8.4-10.5)
--- NOTE | 2018-01-18 18:09 | CP.PCM.PN ---
<Brigido Villa - Last Filed: 01/18/18 18:06> Subjective - Date & Time of Evaluation Date of Evaluation: 01/18/18 Time of Evaluation: 18:06 - Subjective Subjective: Podiatry progress note: Dr. Irvin/Dr. Pollard 77M seen and evaluated for bilateral foot ischemia with right 1st, 4th, and 5th digit gangrene. Patient resting comfortably at time of visit, NAD. BELLAMY. Patient complains of pain to his right foot today; no complaints to LLE. Dressings to right foot clean/dry/intact; multipodus boots absent b/l. Denies N/ V/F/D/C/SOB/CP/ARANDA/dizziness. Offers no other complaints. Objective - Vital Signs/Intake and Output Vital Signs (last 24 hours): Temp Pulse Resp BP Pulse Ox 97.6 F 60 16 139/79 98 01/18/18 12:15 01/18/18 14:00 01/18/18 12:15 01/18/18 12:15 01/18/18 06:01 Intake and Output: 01/18/18 01/18/18 06:59 18:59 Intake Total 1080 Output Total 550 Balance 530 - Medications Medications: Current Medications Amlodipine Besylate (Norvasc) 10 mg PO DAILY [facility] Last Admin: 01/18/18 09:09 Dose: 10 mg Atorvastatin Calcium (Lipitor) 20 mg PO DIN [facility] Last Admin: 01/18/18 17:42 Dose: 20 mg Darbepoetin Matt (Aranesp) 100 mcg SC QWK [facility] Iron Sucrose 100 mg/ Sodium (Chloride) 105 mls @ 210 mls/hr IVPB DAILY [facility] Last Admin: 01/18/18 09:44 Dose: 210 mls/hr Metoprolol Tartrate (Lopressor) 25 mg PO BID [facility] Last Admin: 01/18/18 17:43 Dose: Not Given Pantoprazole Sodium (Protonix Ec Tab) 40 mg PO 0600,1600 [facility] Last Admin: 01/18/18 17:42 Dose: 40 mg - Labs Labs: 01/18/18 06:30 01/18/18 06:30 PT 10.7 SECONDS (9.4-12.5) 01/12/18 22:31 INR 0.94 (0.93-1.08) 01/12/18 22:31 APTT 29.8 Seconds (25.1-36.5) 01/12/18 22:31 - Constitutional Appears: Well, Non-toxic, No Acute Distress - Extremities Exam Additional comments: Bilateral LE focused exam Vasc: DP and PT faintly palpable, temperature gradient cool to cool, no edema noted to the LE, CFT delayed to the digits Derm: right hallux wound with demarcated dry eschar at distal medial tuft; 4th and 5th toes with dry demarcated eschars at distal rojelio, no fluctanance, no abscess, no clinical signs of infection, left foot digit 3 and 4 appear hyperpigmented with no open lesions, no clinical suspicion of active infection Neuro: gross and protective sensation intact Ortho: severe pain noted with light palpation to the right hallux and generalized forefoot, mild pain on the left forefoot, patient unable to MM secondary to guarding. - Neurological Exam Neurological Exam: Alert, Awake, Oriented x3 - Psychiatric Exam Psychiatric exam: Normal Affect, Normal Mood Assessment and Plan - Assessment and Plan (Free Text) Assessment: 77 year old male with right foot ischemia and gangrenous changes to 1st, 4th, 5th digits secondary to PVD Plan: Patient examined and evaluated with attending Dr. Pollard WBC increasing 16.8 (yesterday 01/17 @ 14.5) From previous admission: Vascular- no additional vascular intervention during this time Duplex RLE arterial US- Normal velocities are noted in the right SFA. No significant stenoses were noted IMPRESSION: Patent right external iliac stent and SFA R CAMILA IMPRESSION: 1. Borderline abnormal right CAMILA. Improved from previous study 2. Left SFA and tibial disease No podiatric surgical intervention at this time Continue local wound care - xeroform, DSD to right hallux and 5th digit; A&D ointment to bilateral LE Multipodus boots must be worn at all times while in bed; patient refusing despite education Patient will benefit to a long-term facility for physical therapy Podiatry will continue to follow <Sylwia Irvin - Last Filed: 02/01/18 17:30> Objective - Vital Signs/Intake and Output Vital Signs (last 24 hours): Temp Pulse Resp BP Pulse Ox 97.9 F 85 18 154/88 H 98 01/23/18 06:00 01/23/18 09:51 01/23/18 06:00 01/23/18 09:51 01/23/18 06:00 - Labs Labs: 01/23/18 06:00 01/23/18 06:00 PT 10.7 SECONDS (9.4-12.5) 01/12/18 22:31 INR 0.94 (0.93-1.08) 01/12/18 22:31 APTT 29.8 Seconds (25.1-36.5) 01/12/18 22:31 Attending/Attestation - Attestation I have personally seen and examined this patient.: Yes I have fully participated in the care of the patient.: Yes I have reviewed all pertinent clinical information, including history, physical exam and plan: Yes Notes (Text): 02/01/18 17:30 I formulated the careplan for this patient and evaluated and seen pt with resident
[2018-01-18] MEDS ORDERED: POLYETHYLENE GLYCOL 3350 17 GM/Dose PACKET PO ONE (21:05)
[2018-01-18] MEDS ORDERED: Bisacodyl 5mg EC Tab PO ONE (22:00)
--- NOTE | 2018-01-18 23:38 | CP.PCM.PN ---
Subjective - Date & Time of Evaluation Date of Evaluation: 01/18/18 Time of Evaluation: 23:37 - Subjective Subjective: Patient was seen at bedside for right leg pain. Has no other complaints. Denies chest pain, sob, headache. Medical record was reviewed. 77 year old male was admitted for hemoglobin of 6.5. PMH of HTN, PVD,CKD IV, anemia, chronic cellulitis/gangrene of right foot, smoker. Objective - Vital Signs/Intake and Output Vital Signs (last 24 hours): Temp Pulse Resp BP Pulse Ox 97.6 F 64 16 139/79 98 01/18/18 12:15 01/18/18 22:00 01/18/18 12:15 01/18/18 12:15 01/18/18 06:01 - Medications Medications: Current Medications Amlodipine Besylate (Norvasc) 10 mg PO DAILY [facility] Last Admin: 01/18/18 09:09 Dose: 10 mg Atorvastatin Calcium (Lipitor) 20 mg PO DIN [facility] Last Admin: 01/18/18 17:42 Dose: 20 mg Bisacodyl (Dulcolax) 10 mg PO ONCE ONE Stop: 01/19/18 10:01 Darbepoetin Matt (Aranesp) 100 mcg SC QWK [facility] Iron Sucrose 100 mg/ Sodium (Chloride) 105 mls @ 210 mls/hr IVPB DAILY [facility] Last Admin: 01/18/18 09:44 Dose: 210 mls/hr Metoprolol Tartrate (Lopressor) 25 mg PO BID [facility] Last Admin: 01/18/18 17:43 Dose: Not Given Pantoprazole Sodium (Protonix Ec Tab) 40 mg PO 0600,1600 [facility] Last Admin: 01/18/18 17:42 Dose: 40 mg Tramadol HCl (Ultram) 50 mg PO Q6H PRN PRN Reason: Pain, moderate (4-7) Last Admin: 01/18/18 22:40 Dose: 50 mg - Labs Labs: 01/18/18 06:30 01/18/18 06:30 PT 10.7 SECONDS (9.4-12.5) 01/12/18 22:31 INR 0.94 (0.93-1.08) 01/12/18 22:31 APTT 29.8 Seconds (25.1-36.5) 01/12/18 22:31 Micro Results 01/13/18 08:00 Blood Blood Culture - Final NO GROWTH AFTER 5 DAYS 01/13/18 08:00 Blood Gram Stain - Final TEST NOT PERFORMED 01/13/18 07:45 Blood Blood Culture - Final NO GROWTH AFTER 5 DAYS 01/13/18 07:45 Blood Gram Stain - Final TEST NOT PERFORMED Most Recent Lab Values WBC 16.8 10^3/ul (4.5-11.0) H 01/18/18 06:30 RBC 3.40 10^6/uL (3.5-6.1) L 01/18/18 06:30 Hgb 9.6 g/dL (14.0-18.0) L 01/18/18 06:30 Hct 30.0 % (42.0-52.0) L 01/18/18 06:30 MCV 88.2 fl (80.0-105.0) 01/18/18 06:30 MCH 28.2 pg (25.0-35.0) 01/18/18 06:30 MCHC 32.0 g/dl (31.0-37.0) 01/18/18 06:30 RDW 15.4 % (11.5-14.5) H 01/18/18 06:30 Plt Count 391 10^3/uL (120.0-450.0) 01/18/18 06:30 MPV 9.4 fl (7.0-11.0) 01/18/18 06:30 Gran % 68.3 % (50.0-68.0) H 01/18/18 06:30 Lymph % (Auto) 11.8 % (22.0-35.0) L 01/18/18 06:30 [place] % (Auto) 14.2 % (1.0-6.0) H 01/18/18 06:30 Eos % (Auto) 5.5 % (1.5-5.0) H 01/18/18 06:30 Baso % (Auto) 0.2 % (0.0-3.0) 01/18/18 06:30 Gran # 11.48 (1.4-6.5) H 01/18/18 06:30 Lymph # (Auto) 2.0 (1.2-3.4) 01/18/18 06:30 [place] # (Auto) 2.4 (0.1-0.6) H 01/18/18 06:30 Eos # (Auto) 0.9 (0.0-0.7) H 01/18/18 06:30 Baso # (Auto) 0.04 K/mm3 (0.0-2.0) 01/18/18 06:30 ESR 85 mm/hr (0.00-15.0) H 01/17/18 07:00 PT 10.7 SECONDS (9.4-12.5) 01/12/18 22:31 INR 0.94 (0.93-1.08) 01/12/18 22:31 APTT 29.8 Seconds (25.1-36.5) 01/12/18 22:31 Sodium 137 mmol/L (132-148) 01/18/18 06:30 Potassium 4.3 mmol/L (3.6-5.0) 01/18/18 06:30 Chloride 100 mmol/L (98-107) 01/18/18 06:30 Carbon Dioxide 27 mmol/L (21-33) 01/18/18 06:30 Anion Gap 14 (10-20) 01/18/18 06:30 BUN 31 mg/dL (7-21) H 01/18/18 06:30 Creatinine 4.1 mg/dl (0.8-1.5) H 01/18/18 06:30 Est GFR ( Amer) 17 01/18/18 06:30 Est GFR (Non-Af Amer) 14 01/18/18 06:30 POC Glucose (mg/dL) 112 mg/dL (65-110) H 01/16/18 21:54 Random Glucose 100 mg/dL (70-110) 01/18/18 06:30 Hemoglobin A1c 5.9 % (4.2-6.5) 01/14/18 06:30 Calcium 8.6 mg/dL (8.4-10.5) 01/18/18 06:30 Iron 22 ug/dL (45-180) L 01/14/18 06:30 TIBC 159 ug/dL (261-462) L 01/14/18 06:30 % Saturation 14 % (20-55) L 01/14/18 06:30 Erythropoietin 2.8 mIU/mL (2.6-18.5) 01/14/18 06:30 Total Bilirubin 0.5 mg/dL (0.2-1.3) 01/18/18 06:30 AST 24 U/L (17-59) 01/18/18 06:30 ALT 32 U/L (7-56) 01/18/18 06:30 Alkaline Phosphatase 138 U/L (38-126) H 01/18/18 06:30 C-Reactive Protein 41.50 mg/L (0.0-9.9) H 01/17/18 07:00 Total Protein 6.8 g/dL (5.8-8.3) 01/18/18 06:30 Albumin 3.3 g/dL (3.0-4.8) 01/18/18 06:30 Globulin 3.5 gm/dL 01/18/18 06:30 Albumin/Globulin Ratio 0.9 (1.1-1.8) L 01/18/18 06:30 Triglycerides 114 mg/dL (35-160) 01/14/18 06:30 Cholesterol 128 mg/dL (130-200) L 01/14/18 06:30 LDL Cholesterol Direct 49 mg/dL (0-129) 01/14/18 06:30 HDL Cholesterol 42 mg/dL (29-60) 01/14/18 06:30 Vitamin B12 262 pg/mL (239-931) 01/14/18 06:30 Folate 3.3 ng/mL 01/14/18 06:30 TSH 3rd Generation 4.61 mIU/mL (0.46-4.68) 01/15/18 06:30 Urine Color Yellow (YELLOW) 01/12/18 22:30 Urine Appearance Clear (CLEAR) 01/12/18 22:30 Urine pH 6.5 (4.7-8.0) 01/12/18 22:30 Ur Specific [place] 1.015 (1.005-1.035) 01/12/18 22:30 Urine Protein 100 mg/dL (<30 mg/dL) H 01/12/18 22:30 Urine Glucose (UA) Negative mg/dL (NEGATIVE) 01/12/18 22:30 Urine Ketones Negative mg/dL (NEGATIVE) 01/12/18 22:30 Urine Blood Small (NEGATIVE) H 01/12/18 22:30 Urine Nitrate Negative (NEGATIVE) 01/12/18 22:30 Urine Bilirubin Negative (NEGATIVE) 01/12/18 22:30 Urine Urobilinogen 0.2 E.U./dL (<1 E.U./dL) 01/12/18 22:30 Ur Leukocyte Esterase Negative Tiffany/uL (NEGATIVE) 01/12/18 22:30 Urine RBC 0 - 2 /hpf (0-2) 01/12/18 22:30 Urine WBC 1 - 3 /hpf (0-6) 01/12/18 22:30 Ur Epithelial Cells 0 - 2 /hpf (0-5) 01/12/18 22:30 Urine Bacteria Rare (NEG) 01/12/18 22:30 Blood Type B POSITIVE 01/12/18 21:56 Antibody Screen Negative 01/12/18 21:56 Crossmatch See Detail 01/12/18 21:56 BBK History Checked Patient has bt 01/12/18 21:56 - Constitutional Appears: Well, No Acute Distress - Head Exam Head Exam: ATRAUMATIC, NORMAL INSPECTION, NORMOCEPHALIC - Eye Exam Eye Exam: Normal appearance - ENT Exam ENT Exam: Normal External Ear Exam - Neck Exam Neck Exam: Normal Inspection - Respiratory Exam Respiratory Exam: NORMAL BREATHING PATTERN - Cardiovascular Exam Cardiovascular Exam: absent: JVD - GI/Abdominal Exam GI & Abdominal Exam: absent: Distended - Rectal Exam Rectal Exam: Deferred - Exam Additional comments: Deferred. - Extremities Exam Extremities Exam: Normal Inspection - Back Exam Back Exam: NORMAL INSPECTION - Neurological Exam Neurological Exam: Alert, Oriented x3 - Psychiatric Exam Psychiatric exam: Normal Affect, Normal Mood - Skin Skin Exam: Pallor Assessment and Plan - Assessment and Plan (Free Text) Assessment: Right foot pain. Chronic cellulitis right foot. Anemia. HTN. PVD. CKD IV. Smoker.
--- NOTE | 2018-01-19 02:13 | PN ---
DATE: 01/18/2018 SUBJECTIVE: The patient was seen early this morning in room 268, bed 1. No fevers and no chills. Patient is in bed, in no acute distress, nontoxic. Tolerating his medications well. PHYSICAL EXAMINATION: VITAL SIGNS: Temperature is 97, blood pressure is 130/70, respiratory rate of 18, heart rate of 60. HEENT: Unremarkable. NECK: Supple. LUNGS: Have decreased breath sounds. HEART: Normal S1 and S2. ABDOMEN: Soft, nontender. LABORATORY DATA: Reveals a white count of 16,800, hemoglobin of 9, platelets of 391. Coagulation is noted. Chemistries reveal a BUN of 31, creatinine of 4.1. C-reactive protein is 41. Urinalysis is noted. Microbiology reveals the blood cultures are negative. ASSESSMENT AND PLAN: This is a 77-year-old male with a right first toe dry gangrene with no evidence of active infection. Patient with esophageal, antral, and duodenal ulcer, status post endoscopy. Currently off of antibiotics. Vascular consultation and workup in progress. Blood cultures are negative. We will follow with you. Popeye Barber MD
[2018-01-19] MEDS: Pantoprazole 40 mg EC Tab PO SCH ×2 (05:24→16:12)
[2018-01-19 06:54] LABS: BASO # 0.02 K/mm3 (0.0-2.0); BASO % 0.1 % (0.0-3.0); EOS % 6.5 % (1.5-5.0); GRAN # 10.11 (1.4-6.5); GRAN % 66.1 % (50.0-68.0); HEMOGLOBIN 9.6 g/dL (14.0-18.0); LYMPH # 2.2 (1.2-3.4); LYMPH % 14.7 % (22.0-35.0); MEAN CELL VOLUME 89.5 fl (80.0-105.0); MEAN CORPUSCULAR HEMOGLOBIN 28.1 pg (25.0-35.0); MEAN CORPUSCULAR HGB CONC 31.4 g/dl (31.0-37.0); MEAN PLATELET VOLUME 9.5 fl (7.0-11.0); MONO # 1.9 (0.1-0.6); MONO % 12.6 % (1.0-6.0); RBC 3.42 10^6/uL (3.5-6.1); RED CELL DISTRIBUTION WIDTH 15.4 % (11.5-14.5); WHITE BLOOD COUNT 15.3 10^3/ul (4.5-11.0)
[2018-01-19 07:40] LABS: ALBUMIN 3.4 g/dL (3.0-4.8); CALCIUM 8.6 mg/dL (8.4-10.5)
--- NOTE | 2018-01-19 09:15 | CP.PCM.PN ---
<Harinder Ocasio - Last Filed: 01/19/18 09:09> Subjective - Date & Time of Evaluation Date of Evaluation: 01/19/18 Time of Evaluation: 09:09 - Subjective Subjective: Podiatry progress note: Dr. Irvin/Dr. Pollard 77M seen and evaluated for bilateral foot ischemia with right 1st, 4th, and 5th digit gangrene. Patient resting comfortably at time of visit, NAD. Patient complains of pain to his right foot today. Dressings to right foot clean/dry/ intact. Patient does not like to wear the multipodus boots. Denies N/V/F/D/C/SOB /CP/ARANDA/dizziness. Offers no other complaints. Objective - Vital Signs/Intake and Output Vital Signs (last 24 hours): Temp Pulse Resp BP Pulse Ox 98.1 F 70 19 132/93 H 97 01/19/18 06:30 01/19/18 06:30 01/19/18 06:30 01/19/18 06:30 01/19/18 06:30 Intake and Output: 01/19/18 01/19/18 06:59 18:59 Intake Total 300 Output Total 200 Balance 100 - Medications Medications: Current Medications Amlodipine Besylate (Norvasc) 10 mg PO DAILY [facility] Last Admin: 01/18/18 09:09 Dose: 10 mg Atorvastatin Calcium (Lipitor) 20 mg PO DIN [facility] Last Admin: 01/18/18 17:42 Dose: 20 mg Bisacodyl (Dulcolax) 10 mg PO ONCE ONE Stop: 01/19/18 10:01 Darbepoetin Matt (Aranesp) 100 mcg SC QWK [facility] Iron Sucrose 100 mg/ Sodium (Chloride) 105 mls @ 210 mls/hr IVPB DAILY [facility] Last Admin: 01/18/18 09:44 Dose: 210 mls/hr Metoprolol Tartrate (Lopressor) 25 mg PO BID [facility] Last Admin: 01/18/18 17:43 Dose: Not Given Pantoprazole Sodium (Protonix Ec Tab) 40 mg PO 0600,1600 [facility] Last Admin: 01/19/18 05:24 Dose: 40 mg - Labs Labs: 01/19/18 05:45 01/19/18 05:45 PT 10.7 SECONDS (9.4-12.5) 01/12/18 22:31 INR 0.94 (0.93-1.08) 01/12/18 22:31 APTT 29.8 Seconds (25.1-36.5) 01/12/18 22:31 - Constitutional Appears: Well, Non-toxic, No Acute Distress - Extremities Exam Additional comments: Bilateral LE focused exam Vasc: DP and PT faintly palpable, temperature gradient cool to cool, no edema noted to the LE, CFT delayed to the digits Derm: right hallux wound with demarcated dry eschar at distal medial tuft; 4th and 5th toes with dry demarcated eschars at distal rojelio, no fluctanance, no abscess, no clinical signs of infection, left foot digit 3 and 4 appear hyperpigmented with no open lesions, no clinical suspicion of active infection Neuro: gross and protective sensation intact Ortho: severe pain noted with light palpation to the right hallux and generalized forefoot, mild pain on the left forefoot, patient unable to MM secondary to guarding. - Neurological Exam Neurological Exam: Alert, Awake, Oriented x3 - Psychiatric Exam Psychiatric exam: Normal Affect, Normal Mood Assessment and Plan - Assessment and Plan (Free Text) Assessment: 77 year old male with right foot ischemia and gangrenous changes to 1st, 4th, 5th digits secondary to PVD Plan: Patient examined and evaluated Discussed plan with Dr. Irvin Afebrile; WBC 15.3 From previous admission: Vascular- no additional vascular intervention during this time Duplex RLE arterial US- Normal velocities are noted in the right SFA. No significant stenoses were noted IMPRESSION: Patent right external iliac stent and SFA R CAMILA IMPRESSION: 1. Borderline abnormal right CAMILA. Improved from previous study 2. Left SFA and tibial disease No podiatric surgical intervention at this time Continue local wound care - xeroform, DSD to right hallux and 5th digit; A&D ointment to bilateral LE Multipodus boots must be worn at all times while in bed; patient refusing despite education Patient will benefit to a long-term facility for physical therapy Podiatry will continue to follow <Sylwia Irvin - Last Filed: 02/01/18 17:35> Objective - Vital Signs/Intake and Output Vital Signs (last 24 hours): Temp Pulse Resp BP Pulse Ox 97.9 F 85 18 154/88 H 98 01/23/18 06:00 01/23/18 09:51 01/23/18 06:00 01/23/18 09:51 01/23/18 06:00 - Labs Labs: 01/23/18 06:00 01/23/18 06:00 PT 10.7 SECONDS (9.4-12.5) 01/12/18 22:31 INR 0.94 (0.93-1.08) 01/12/18 22:31 APTT 29.8 Seconds (25.1-36.5) 01/12/18 22:31 Attending/Attestation - Attestation I have personally seen and examined this patient.: Yes I have fully participated in the care of the patient.: Yes I have reviewed all pertinent clinical information, including history, physical exam and plan: Yes
[2018-01-19] MEDS ORDERED: Magnesium Citrate Oral SOL (300 ml) PO ONE (09:18)
--- NOTE | 2018-01-19 09:20 | CON ---
DATE: 01/16/2018 REASON FOR THE CONSULTATION: Sixteen beats of ventricular tachycardia, cardiac evaluation, preop evaluation, risk stratification, colonoscopy. BRIEF CLINICAL HISTORY: This is a 77-year-old male, active tobacco abuse. He used to smoke 2 packs a day, cut down to half to quater pack, a resident [facility], sent here for right foot cellulitis, found to be severely anemic, history of stage IV CKD disease, had endoscopy done and is scheduled for colonoscopy. 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 Cardiac evaluation requested. Carefully looking, it is an ischemic QRS complex, same direction beat to beat variation, most likely AFib with evident conduction, then VT. Patient denies chest pain, shortness of breath or any palpitation. PAST MEDICAL HISTORY: Significant for severe PAD status post revascularization by Interventional Radiology, chronic cellulitis, and gangrene of the right big toe and history of hypertension. PAST SURGICAL HISTORY: Significant for right hip arthroplasty. ALLERGIES: NO KNOWN DRUG ALLERGY. CURRENT MEDICATIONS: Patient at home was taking amlodipine 5 mg daily, oxycodone, lisinopril and hydrochlorothiazide combination. Currently patient is on atorvastatin 20 mg daily, amlodipine 10 mg daily, oxycodone, Aranesp and iron preparation. Previous cardiac workup as follows. Patient had echocardiography on 11/10/2017 that shows a normal LV function, mitral regurgitation is [id number], mild tricuspid regurgitation, RV systolic pressure of 50, ejection fraction calculated 61%. Patient had peripheral intervention done by Dr. Rolle on 11/13/2017. An abdominal aortogram, selective right lower extremity angiogram, right SFA drug-eluting balloon angioplasty, right external iliac angioplasty and a stent placement, selective right renal arteriogram with pressure measurement done. REVIEW OF SYSTEMS: As per HPI. PHYSICAL EXAMINATION: As follows: VITAL SIGNS: Temperature afebrile, heart rate 77, blood pressure 139/88. HEENT: PERRLA. Extraocular muscles intact. NECK: Supple. No carotid bruit or thyromegaly. CHEST: Clear to auscultation. HEART: S1 and S2, regular. ABDOMEN: Soft. EXTREMITIES: Clubbing and cyanosis, negative. LABORATORY DATA: Blood workup as follows: WBC 12.5, hemoglobin 9.8, hematocrit 30.3, platelet count 321. Chemistry shows sodium 141, potassium 4, chloride 104, carbon dioxide , anion gap of 31, BUN 15, creatinine 3.4. IMPRESSION: Acute kidney injury and chronic renal insufficiency. Patient admitted with creatinine of 4.5, now it is trending down to 3.4 status post renal angiogram, status post peripheral intervention of right superficial femoral artery and common iliac, right toe gangrene, 16 beats of ventricular tachycardia with more likely atrial fibrillation with aberrant conduction. Echo showed preserved left ventricular function. He has peripheral arterial disease. RECOMMENDATION: Patient is admitted with very low hemoglobin, admitting with 6.5, status post RBC transfusion, now hemoglobin is 9.8. Recommendation is to start low-dose beta gi. We will clear the patient to go for endoscopy, colonoscopy, further risk stratification. We will consider a stress test as outpatient. Discussed with the patient. We will clear the patient for endoscopy. No evidence of acute DC. No evidence of ischemia on EKG. Baseline patient's EKG showed normal sinus, right bundle-branch block. An echo of patient on 11/10/2017 that showed preserved LV function, mild MR, mild TR, RV systolic pressure of 50. Calculated ejection fraction of 60%. We will follow with you. Thank you, Dr. Walters, for providing us the opportunity in taking care of the patient, Geovanna Guerra. Jt Figueroa MD
--- NOTE | 2018-01-19 09:29 | PN ---
DATE: 01/16/2018 SUBJECTIVE: Patient is seen and examined at the bedside, looking comfortable, complaining about right foot pain. Denies chest pain, shortness of breath, nausea, vomiting, diarrhea. No hematuria or hematochezia. No headache, no dizziness. No dysuria. Denies any bloody bowel movement. No melena. Patient is on clear liquid diet. He is tolerating this. Scheduled a colonoscopy. Getting prepared for that. PHYSICAL EXAMINATION: VITAL SIGNS: Temperature 98, pulse 68, respiratory rate 19, blood pressure 150/62, pulse oximetry 98. HEENT: Head: Normocephalic, atraumatic. Eyes: PERRLA. Extraocular muscles intact. Conjunctivae clear. Nose: Patent. Mucous membrane moist. NECK: Supple. No carotid bruit. No JVD or thyromegaly. CHEST: Bilaterally symmetrical. HEART: S1 and S2 positive. LUNGS: Clear to auscultation. ABDOMEN: Soft. Bowel sounds positive. No organomegaly. EXTREMITIES: No edema. No cyanosis. NEUROLOGICAL: Patient is awake and alert. Moving all 4 extremities. No focal deficits. MEDICATIONS: Norvasc, Lipitor, Percocet, Protonix. LABORATORY DATA: White blood cells 12.5, hemoglobin 9.8, hematocrit 30.6, platelets 321. Sodium 141, potassium 4.1, BUN 31, creatinine 3.4, glucose 82. ASSESSMENT AND PLAN: Mr. Geovanna Guerra is a 77-year-old male with leukocytosis, anemia, renal insufficiency with past medical history of chronic kidney disease, stage IV; anemia of chronic disease; came with anemia, hemoglobin 6.5, after the transfusion of two units of packed red blood cells, anemia looks like multifactorial, iron deficiency, chronic kidney disease stage IV, esophageal and duodenal ulcers, possible gastrointestinal bleeding, endoscopy shows esophageal and duodenal ulcers. Patient will go for colonoscopy, getting prepared. Discussion done with Dr. Figueroa. Getting iron infusions. We will start iron . Podiatry is on the case. Seen by Dr. Ocasio . Repeat labs. We will follow up. Shivani Walters MD MTDD
[2018-01-19] MEDS ORDERED: Bisacodyl 5mg EC Tab PO ONE ×2 (10:00→19:31)
--- NOTE | 2018-01-19 10:34 | PN ---
DATE: 01/18/2018 The patient is a 77-year-old male. SUBJECTIVE: The patient was seen and examined at the bedside, looking comfortable. No nausea, vomiting, or diarrhea. No hematuria or hematochezia. No swelling of the leg. No chest pain. No palpitations. No headache. No dizziness. No fever. No chills. The patient was seen by Dr. Owens for pain medications. Pain is especially in the right foot. PHYSICAL EXAMINATION: VITAL SIGNS: Temperature 97.6, pulse 60, respiratory rate 16, blood pressure 139/79, pulse oximetry 98. HEENT: Head normocephalic and atraumatic. Eyes; PERRLA. Extraocular muscles are intact. Conjunctivae are clear. Nose is patent. Mucous membranes are moist. NECK: Supple. No carotid bruits. No JVD or thyromegaly. CHEST: Bilaterally symmetrical. HEART: S1 and S2 positive. LUNGS: Clear to auscultation. ABDOMEN: Soft. Bowel sounds positive. No organomegaly. EXTREMITIES: No edema. No cyanosis. NEUROLOGIC: The patient is awake and alert. Moving all four extremities. No focal deficits. MEDICATIONS: Lipitor, Aranesp, Lopressor, Protonix. LABORATORY DATA: White blood cells 16.8, hemoglobin 9.6, hematocrit 30.3, and platelets 91. Sodium 137, potassium 4.3, BUN 31, creatinine 4.1, glucose 100. ASSESSMENT AND PLAN: a 77-year-old male with leukocytosis, anemia, renal insufficiency, has right foot ischemia with greenish tinges to the first, fourth, and fifth digits secondary to peripheral vascular disease. The patient was seen and examined by Dr. Pollard. The patient has a history of stage IV kidney disease, right foot cellulitis, long-term tobacco use, peripheral vascular disease in the past, history of coronary artery disease. The patient has right foot first toe dry gangrene, no evidence of active infection in the past with esophageal, antral and duodenal ulcers. Status post endoscopy, currently on antibiotics, came with severe anemia, now plans to do colonoscopy to make sure the source of the bleeding, because upper endoscopy could not show source of this big drop of hemoglobin. Vascular and Podiatry are on the case. According to Dr. Barber, we will discuss with the Vascular Surgery regarding the blood supply, and Podiatry. Deep venous thrombosis and gastrointestinal prophylaxis. Repeat labs. We will follow. Shivani Walters MD MTDCecilia
--- NOTE | 2018-01-19 10:51 | CP.PCM.PN ---
Subjective - Date & Time of Evaluation Date of Evaluation: 01/19/18 Time of Evaluation: 09:00 - Subjective Subjective: PGY-[address] Knight Patient seen and examined at bedside. No acute distress. Patient reports pain in his right foot. He denies chest pain, sob, n/v, abd pain, headache, dizziness , fever, chills, hematuria, dysuria. Patient states that he would like to go home soon. Patient was scheduled for colonscopy today, however patient eat regualr breakfast, colonoscopy will be postponed until tomorrow. Patient is tolerating diet well. Patient has not other complaints at this time. Objective - Vital Signs/Intake and Output Vital Signs (last 24 hours): Temp Pulse Resp BP Pulse Ox 98.1 F 77 19 115/67 97 01/19/18 06:30 01/19/18 09:58 01/19/18 06:30 01/19/18 09:58 01/19/18 06:30 Intake and Output: 01/19/18 01/19/18 06:59 18:59 Intake Total 300 Output Total 200 Balance 100 - Medications Medications: Current Medications Amlodipine Besylate (Norvasc) 10 mg PO DAILY [facility] Last Admin: 01/19/18 09:58 Dose: 10 mg Atorvastatin Calcium (Lipitor) 20 mg PO DIN [facility] Last Admin: 01/18/18 17:42 Dose: 20 mg Darbepoetin Matt (Aranesp) 100 mcg SC QWK [facility] Iron Sucrose 100 mg/ Sodium (Chloride) 105 mls @ 210 mls/hr IVPB DAILY [facility] Last Admin: 01/19/18 10:18 Dose: 210 mls/hr Metoprolol Tartrate (Lopressor) 25 mg PO BID [facility] Last Admin: 01/19/18 09:58 Dose: 25 mg Pantoprazole Sodium (Protonix Ec Tab) 40 mg PO 0600,1600 [facility] Last Admin: 01/19/18 05:24 Dose: 40 mg Polyethylene Glycol/Electrolytes (Golytely) 4,000 ml PO ONCE ONE Stop: 01/19/18 13:01 - Labs Labs: 01/19/18 05:45 01/19/18 05:45 PT 10.7 SECONDS (9.4-12.5) 01/12/18 22:31 INR 0.94 (0.93-1.08) 01/12/18 22:31 APTT 29.8 Seconds (25.1-36.5) 01/12/18 22:31 - Constitutional Appears: No Acute Distress, Chronically Ill - Head Exam Head Exam: ATRAUMATIC, NORMOCEPHALIC - Eye Exam Eye Exam: EOMI, Normal appearance - ENT Exam ENT Exam: Mucous Membranes Moist - Respiratory Exam Respiratory Exam: Clear to Ausculation Bilateral, NORMAL BREATHING PATTERN. absent: Rhonchi, Wheezes, Respiratory Distress - Cardiovascular Exam Cardiovascular Exam: REGULAR RHYTHM, +S1, +S2. absent: Tachycardia, Murmur - GI/Abdominal Exam GI & Abdominal Exam: Soft, Normal Bowel Sounds. absent: Distended, Firm, Tenderness - Extremities Exam Additional comments: right foot dressed, clean, dry and intact - Neurological Exam Neurological Exam: Alert, Awake, Oriented x3 - Skin Skin Exam: Dry, Normal Color, Warm Assessment and Plan - Assessment and Plan (Free Text) Assessment: 77 yo male with PMH of CKD stage 4, anemia of chronic disease present with anemia s/p transfusion of 2 units pRBC. Anemia most likely multifactorial. iron deficiency CKD stage 4 esophageal, antral and duodenal ulcers Plan: - possible GI bleed superimposed on anemia of chronic disease - s/p showed esophageal, antral and duodenal ulcers - colonoscopy scheduled for tomorrow - GI consulted, will follow up recommendations - iron studies showed low iron, will start IV iron while inpatient - epo level low due to patient's CKD - patient received aranesp 100mcg weekly once - podiatry consulted for right foot ulcer case reviewed and discussed with Dr. Knight
[2018-01-19] MEDS ORDERED: Peg-Electrolyte Oral Soln 4L (Golytely) PO ONE (13:00)
--- NOTE | 2018-01-19 13:05 | CP.PCM.PN ---
<DereckCem aquino - Last Filed: 01/19/18 13:02> Subjective - Date & Time of Evaluation Date of Evaluation: 01/19/18 Time of Evaluation: 08:50 - Subjective Subjective: GI Progress note. Dr. Bernard Pt seen and examined at bedside. Resting comfortably in bed. Denies any new complaints. No N/V/D. No Abd pain, no headache, no dizziness. No F/C. Ate breakfast today. Objective - Vital Signs/Intake and Output Vital Signs (last 24 hours): Temp Pulse Resp BP Pulse Ox 98.1 F 77 19 115/67 97 01/19/18 06:30 01/19/18 09:58 01/19/18 06:30 01/19/18 09:58 01/19/18 06:30 Intake and Output: 01/19/18 01/19/18 06:59 18:59 Intake Total 300 Output Total 200 Balance 100 - Medications Medications: Current Medications Amlodipine Besylate (Norvasc) 10 mg PO DAILY [facility] Last Admin: 01/19/18 09:58 Dose: 10 mg Atorvastatin Calcium (Lipitor) 20 mg PO DIN [facility] Last Admin: 01/18/18 17:42 Dose: 20 mg Darbepoetin Matt (Aranesp) 100 mcg SC QWK [facility] Iron Sucrose 100 mg/ Sodium (Chloride) 105 mls @ 210 mls/hr IVPB DAILY [facility] Last Admin: 01/19/18 10:18 Dose: 210 mls/hr Metoprolol Tartrate (Lopressor) 25 mg PO BID [facility] Last Admin: 01/19/18 09:58 Dose: 25 mg Pantoprazole Sodium (Protonix Ec Tab) 40 mg PO 0600,1600 [facility] Last Admin: 01/19/18 05:24 Dose: 40 mg - Labs Labs: 01/19/18 05:45 01/19/18 05:45 PT 10.7 SECONDS (9.4-12.5) 01/12/18 22:31 INR 0.94 (0.93-1.08) 01/12/18 22:31 APTT 29.8 Seconds (25.1-36.5) 01/12/18 22:31 - Constitutional Appears: Well, Non-toxic, No Acute Distress - Head Exam Head Exam: ATRAUMATIC, NORMAL INSPECTION, NORMOCEPHALIC - Eye Exam Eye Exam: EOMI, Normal appearance - ENT Exam ENT Exam: Mucous Membranes Moist - Respiratory Exam Respiratory Exam: NORMAL BREATHING PATTERN. absent: Accessory Muscle Use - Cardiovascular Exam Cardiovascular Exam: RRR. absent: JVD - GI/Abdominal Exam GI & Abdominal Exam: Soft. absent: Distended, Guarding, Rigid, Tenderness - Neurological Exam Neurological Exam: Alert, Awake, Oriented x3 Assessment and Plan - Assessment and Plan (Free Text) Assessment: 77yo M with anemia of chronic disease. Possible GIB. - s/p EGD on 01/15: Esophageal ulcers, Antral Ulcers, Duodenal Ulcers. No active bleeding noted. Plan: - To Endo for Colonoscopy tomorrow morning. - Continue CLD. NPO after breakfast tomorrow, 01/20. - Bowel prep: Golytely and Mag Citrate today - f/u AM labs Further recs as per Dr. Jonaa Harden PGY1 <Bright Bernard V - Last Filed: 01/19/18 23:53> Objective - Vital Signs/Intake and Output Vital Signs (last 24 hours): Temp Pulse Resp BP Pulse Ox 97.7 F 64 16 104/60 97 01/19/18 17:28 01/19/18 18:51 01/19/18 17:28 01/19/18 18:51 01/19/18 06:30 - Medications Medications: Current Medications Acetaminophen (Tylenol 325mg Tab) 650 mg PO Q6H PRN PRN Reason: Pain, severe (8-10) Last Admin: 01/19/18 16:12 Dose: 650 mg Amlodipine Besylate (Norvasc) 10 mg PO DAILY [facility] Last Admin: 01/19/18 09:58 Dose: 10 mg Atorvastatin Calcium (Lipitor) 20 mg PO DIN [facility] Last Admin: 01/19/18 18:51 Dose: 20 mg Bisacodyl (Dulcolax) 10 mg PO ONCE ONE Stop: 01/20/18 06:01 Darbepoetin Matt (Aranesp) 100 mcg SC QWK [facility] Iron Sucrose 100 mg/ Sodium (Chloride) 105 mls @ 210 mls/hr IVPB DAILY [facility] Last Admin: 01/19/18 10:18 Dose: 210 mls/hr Magnesium Citrate (Citrate Of Mag) 300 ml PO ONCE ONE Stop: 01/20/18 06:01 Metoprolol Tartrate (Lopressor) 25 mg PO BID [facility] Last Admin: 01/19/18 18:51 Dose: 25 mg Pantoprazole Sodium (Protonix Ec Tab) 40 mg PO 0600,1600 [facility] Last Admin: 01/19/18 16:12 Dose: 40 mg - Labs Labs: 01/19/18 05:45 01/19/18 05:45 PT 10.7 SECONDS (9.4-12.5) 01/12/18 22:31 INR 0.94 (0.93-1.08) 01/12/18 22:31 APTT 29.8 Seconds (25.1-36.5) 01/12/18 22:31 Attending/Attestation - Attestation I have personally seen and examined this patient.: Yes I have fully participated in the care of the patient.: Yes I have reviewed all pertinent clinical information, including history, physical exam and plan: Yes Notes (Text): This is an addendum to GI progress report dictated by the Biomedical Manager.The patient was seen and examined earlier. Medical records, lab studies, imagings were reviewed. Last 24 hours events reviewed. Agreed with the above treatment plan as outlined in Biomedical Manager 's notes the with the addition of the following 01/19/18 23:53
--- NOTE | 2018-01-19 19:38 | CP.PCM.PN ---
Subjective - Date & Time of Evaluation Date of Evaluation: 01/19/18 Time of Evaluation: 10:00 - Subjective Subjective: No fevers, not in distress ,afebrile. Objective - Vital Signs/Intake and Output Vital Signs (last 24 hours): Temp Pulse Resp BP Pulse Ox 97.7 F 64 16 104/60 97 01/19/18 17:28 01/19/18 18:51 01/19/18 17:28 01/19/18 18:51 01/19/18 06:30 - Medications Medications: Current Medications Acetaminophen (Tylenol 325mg Tab) 650 mg PO Q6H PRN PRN Reason: Pain, severe (8-10) Last Admin: 01/19/18 16:12 Dose: 650 mg Amlodipine Besylate (Norvasc) 10 mg PO DAILY [facility] Last Admin: 01/19/18 09:58 Dose: 10 mg Atorvastatin Calcium (Lipitor) 20 mg PO DIN [facility] Last Admin: 01/19/18 18:51 Dose: 20 mg Bisacodyl (Dulcolax) 10 mg PO ONCE ONE Stop: 01/20/18 06:01 Darbepoetin Matt (Aranesp) 100 mcg SC QWK [facility] Iron Sucrose 100 mg/ Sodium (Chloride) 105 mls @ 210 mls/hr IVPB DAILY [facility] Last Admin: 01/19/18 10:18 Dose: 210 mls/hr Magnesium Citrate (Citrate Of Mag) 300 ml PO ONCE ONE Stop: 01/20/18 06:01 Metoprolol Tartrate (Lopressor) 25 mg PO BID [facility] Last Admin: 01/19/18 18:51 Dose: 25 mg Pantoprazole Sodium (Protonix Ec Tab) 40 mg PO 0600,1600 [facility] Last Admin: 01/19/18 16:12 Dose: 40 mg - Labs Labs: 01/19/18 05:45 01/19/18 05:45 PT 10.7 SECONDS (9.4-12.5) 01/12/18 22:31 INR 0.94 (0.93-1.08) 01/12/18 22:31 APTT 29.8 Seconds (25.1-36.5) 01/12/18 22:31 - Constitutional Appears: Chronically Ill - Head Exam Head Exam: NORMAL INSPECTION - Respiratory Exam Respiratory Exam: Decreased Breath Sounds - Cardiovascular Exam Cardiovascular Exam: +S1, +S2 - GI/Abdominal Exam GI & Abdominal Exam: Soft. absent: Tenderness Assessment and Plan - Assessment and Plan (Free Text) Plan: Assessment right 1st toe gangrene with no evidence of active infection peripheral vascular disease with necrotic toes and ulceration bilaterally, S/P revascularization consider HCAP, bilateral, clinically improving acute encephalopathy, etiology to be determined, now resolved history of Right foot cellulitis with right hallux gangrene Peripheral vascular disease HTN Plan continue to monitor off antibiotics since he is at risk for nosocomial infections
--- NOTE | 2018-01-19 19:44 | PN ---
DATE: REASON FOR CONSULTATION AND FOLLOWUP: Cardiac evaluation, preop evaluation for colonoscopy . SUBJECTIVE: The patient denies any chest pain, shortness of breath, or any palpitation. OBJECTIVE: GENERAL: Not in any apparent distress. VITAL SIGNS: Temperature afebrile, heart rate 77, blood pressure 115/67. HEENT: PERRLA. Extraocular muscles intact. NECK: Supple. No carotid bruit. No thyromegaly. CHEST: Clear to auscultation. HEART: S1 and S2, regular. ABDOMEN: Soft. EXTREMITIES: Clubbing and cyanosis negative. LABORATORY DATA: Blood workup as follows: WBC 15.3, hemoglobin 9.6, hematocrit 30.6, and platelet count 431. Chemistry shows sodium 130, potassium 4.6, chloride 100, carbon dioxide 28, anion gap of 15. BUN 35, creatinine 4.5. IMPRESSION: Acute kidney injury on chronic renal insufficiency, anemia, gastrointestinal bleed, going for colonoscopy, hypertension history. The patient had an echo on 11/10/2017, that shows normal left ventricular function, mitral regurgitation is [id number], mild tricuspid regurgitation, right ventricular systolic pressure of 50, ejection fraction 61%. The patient had peripheral intervention done by Dr. Rolle on 11/13/2017, and abdominal aortogram, selective right lower extremity angiogram, right superficial femoral artery drug-eluting stent balloon angioplasty, right external iliac angioplasty and stent placement selectively on the right, selective renal arteriogram with pressure measurement done. The patient was admitted with low hemoglobin averaging 6.5 status post transfusion, now it is 9.8. Patient as mentioned, last echo normal LV function. RECOMMENDATIONS: Continue to monitor electrolytes. Continue atorvastatin. Continue low dose beta gi. CVS status is stable. We will discontinue telemetry. Continue GI workup. We will follow with you. Thank you Dr. Walters for providing us the opportunity in taking care of patient, Geovanna Guerra. Jt Figueroa MD
--- NOTE | 2018-01-20 01:41 | PN ---
DATE: SUBJECTIVE: The patient is a 77-year-old male. The patient is seen and examined on the bedside, looking comfortable. No nausea, vomiting or diarrhea. No hematuria or hematochezia. No swelling of the leg. No chest pain, no palpitations. No headache, no dizziness. [facility] PHYSICAL EXAMINATION: VITAL SIGNS: Temperature 97.7, pulse 64, respiratory rate 16, blood pressure 104/60, pulse oximetry 97. HEENT: Head: Normocephalic, atraumatic. Eyes: PERRLA. Extraocular muscles intact. Conjunctivae clear. Nose patent. Mucous membrane moist. NECK: Supple. No carotid bruit. No JVD or thyromegaly. CHEST: Bilaterally symmetrical. HEART: S1 and S2 positive. LUNGS: Clear to auscultation. ABDOMEN: Soft, bowel sounds positive. No organomegaly. EXTREMITIES: No edema, no cyanosis. NEUROLOGICAL: The patient is awake, alert, moving all 4 extremities. No focal deficit. MEDICATIONS: Tylenol, Norvasc, Lipitor, Dulcolax, Aricept, magnesium citrate, Lopressor, Protonix. LABORATORY DATA: White blood cells 15.3, hemoglobin 9.6, hematocrit 30.6, platelets 431. Sodium 138, potassium 4.6, BUN 35, creatinine 4.5, glucose 88. ASSESSMENT AND PLAN: Mr. Mari Austin is a 77-year-old male with leukocytosis, anemia, renal insufficiency, has right first toe gangrene with no evidence of active infection as per Dr. Wade Gomez, peripheral vascular disease with necrotic toes and ulceration bilaterally, status post revascularization, consider HCAT bilaterally. Actually clinically the patient is improving, acute encephalopathy now is resolved, history of right foot cellulitis with right hallux gangrene, hypertension. Continue monitoring the patient off the antibiotics since he has nosocomial infection. The patient has a history of anemia. GI is on the case. Getting ready for colonoscopy tomorrow. Seen by lithographic proofer, Dr. Figueroa. Podiatry, Dr. Pollard, is on the case. Repeat labs. We will follow up. Shivani Walters MD MTDD
[2018-01-20] MEDS: Pantoprazole 40 mg EC Tab PO SCH ×2 (05:10→15:30)
[2018-01-20] MEDS ORDERED: Magnesium Citrate Oral SOL (300 ml) PO ONE (06:00)
[2018-01-20] MEDS ORDERED: Bisacodyl 5mg EC Tab PO ONE ×2 (06:00→07:45)
[2018-01-20 07:22] LABS: BASO # 0.07 K/mm3 (0.0-2.0); BASO % 0.5 % (0.0-3.0); EOS # 0.6 (0.0-0.7); EOS % 3.9 % (1.5-5.0); GRAN # 10.45 (1.4-6.5); GRAN % 70.4 % (50.0-68.0); HEMOGLOBIN 10.5 g/dL (14.0-18.0); LYMPH % 13.5 % (22.0-35.0); MEAN CELL VOLUME 89.6 fl (80.0-105.0); MEAN CORPUSCULAR HEMOGLOBIN 28.6 pg (25.0-35.0); MEAN CORPUSCULAR HGB CONC 31.9 g/dl (31.0-37.0); MEAN PLATELET VOLUME 9.6 fl (7.0-11.0); MONO # 1.7 (0.1-0.6); MONO % 11.7 % (1.0-6.0); RBC 3.67 10^6/uL (3.5-6.1); RED CELL DISTRIBUTION WIDTH 15.3 % (11.5-14.5); WHITE BLOOD COUNT 14.8 10^3/ul (4.5-11.0)
[2018-01-20 07:49] LABS: ALBUMIN 3.5 g/dL (3.0-4.8); CALCIUM 8.8 mg/dL (8.4-10.5)
--- NOTE | 2018-01-20 13:15 | CP.PCM.PN ---
<Harinder Ocasio - Last Filed: 01/20/18 13:11> Subjective - Date & Time of Evaluation Date of Evaluation: 01/20/18 Time of Evaluation: 13:11 - Subjective Subjective: Podiatry progress note: Dr. Irvin/Dr. Pollard 77M seen and evaluated for bilateral foot ischemia with right 1st, 4th, and 5th digit gangrene. Patient resting comfortably at time of visit, NAD. Patient complains of pain to his right foot today. Reports that he will be going home tomorrow. Dressings to right foot clean/dry/intact. Patient does not like to wear the multipodus boots. Denies N/V/F/D/C/SOB/CP/ARANDA/dizziness. Offers no other complaints. Objective - Vital Signs/Intake and Output Vital Signs (last 24 hours): Temp Pulse Resp BP Pulse Ox 97.5 F L 60 18 128/76 99 01/20/18 07:56 01/20/18 07:56 01/20/18 07:56 01/20/18 09:39 01/20/18 07:56 Intake and Output: 01/20/18 01/20/18 06:59 18:59 Intake Total 270 Balance 270 - Medications Medications: Current Medications Acetaminophen (Tylenol 325mg Tab) 650 mg PO Q6H PRN PRN Reason: Pain, severe (8-10) Last Admin: 01/19/18 16:12 Dose: 650 mg Amlodipine Besylate (Norvasc) 10 mg PO DAILY [facility] Last Admin: 01/20/18 09:39 Dose: 10 mg Atorvastatin Calcium (Lipitor) 20 mg PO DIN [facility] Last Admin: 01/19/18 18:51 Dose: 20 mg Darbepoetin Matt (Aranesp) 100 mcg SC QWK [facility] Iron Sucrose 100 mg/ Sodium (Chloride) 105 mls @ 210 mls/hr IVPB DAILY [facility] Last Admin: 01/20/18 09:38 Dose: 210 mls/hr Metoprolol Tartrate (Lopressor) 25 mg PO BID [facility] Last Admin: 01/20/18 09:39 Dose: 25 mg Pantoprazole Sodium (Protonix Ec Tab) 40 mg PO 0600,1600 [facility] Last Admin: 01/20/18 05:10 Dose: 40 mg - Labs Labs: 01/20/18 07:00 01/20/18 07:00 PT 10.7 SECONDS (9.4-12.5) 01/12/18 22:31 INR 0.94 (0.93-1.08) 01/12/18 22:31 APTT 29.8 Seconds (25.1-36.5) 01/12/18 22:31 - Constitutional Appears: Well, Non-toxic, No Acute Distress - Extremities Exam Additional comments: Bilateral LE focused exam Vasc: DP and PT faintly palpable, temperature gradient cool to cool, no edema noted to the LE, CFT delayed to the digits Derm: right hallux wound with demarcated dry eschar at distal medial tuft; 4th and 5th toes with dry demarcated eschars at distal rojelio, no fluctanance, no abscess, no clinical signs of infection, left foot digit 3 and 4 appear hyperpigmented with no open lesions, no clinical suspicion of active infection Neuro: gross and protective sensation intact Ortho: severe pain noted with light palpation to the right hallux and generalized forefoot, mild pain on the left forefoot, patient unable to MM secondary to guarding. - Neurological Exam Neurological Exam: Alert, Awake, Oriented x3 - Psychiatric Exam Psychiatric exam: Normal Affect, Normal Mood Assessment and Plan - Assessment and Plan (Free Text) Assessment: 77 year old male with right foot ischemia and gangrenous changes to 1st, 4th, 5th digits secondary to PVD Plan: Patient examined and evaluated Discussed plan with Dr. Pollard Afebrile; WBC 14.8 From previous admission: Vascular- no additional vascular intervention during this time Duplex RLE arterial US- Normal velocities are noted in the right SFA. No significant stenoses were noted IMPRESSION: Patent right external iliac stent and SFA R CAMILA IMPRESSION: 1. Borderline abnormal right CAMILA. Improved from previous study 2. Left SFA and tibial disease No podiatric surgical intervention at this time Continue local wound care - xeroform, DSD to right hallux and 5th digit; A&D ointment to bilateral LE Multipodus boots must be worn at all times while in bed; patient refusing despite education Patient will benefit to a long-term facility for physical therapy Podiatry will continue to follow <Jason Pollard - Last Filed: 01/20/18 14:13> Objective - Vital Signs/Intake and Output Vital Signs (last 24 hours): Temp Pulse Resp BP Pulse Ox 97.5 F L 60 18 128/76 99 01/20/18 07:56 01/20/18 07:56 01/20/18 07:56 01/20/18 09:39 01/20/18 07:56 Intake and Output: 01/20/18 01/20/18 06:59 18:59 Intake Total 270 Balance 270 - Medications Medications: Current Medications Acetaminophen (Tylenol 325mg Tab) 650 mg PO Q6H PRN PRN Reason: Pain, severe (8-10) Last Admin: 01/19/18 16:12 Dose: 650 mg Amlodipine Besylate (Norvasc) 10 mg PO DAILY [facility] Last Admin: 01/20/18 09:39 Dose: 10 mg Atorvastatin Calcium (Lipitor) 20 mg PO DIN [facility] Last Admin: 01/19/18 18:51 Dose: 20 mg Darbepoetin Matt (Aranesp) 100 mcg SC QWK [facility] Iron Sucrose 100 mg/ Sodium (Chloride) 105 mls @ 210 mls/hr IVPB DAILY [facility] Last Admin: 01/20/18 09:38 Dose: 210 mls/hr Metoprolol Tartrate (Lopressor) 25 mg PO BID [facility] Last Admin: 01/20/18 09:39 Dose: 25 mg Pantoprazole Sodium (Protonix Ec Tab) 40 mg PO 0600,1600 [facility] Last Admin: 01/20/18 05:10 Dose: 40 mg - Labs Labs: 01/20/18 07:00 01/20/18 07:00 PT 10.7 SECONDS (9.4-12.5) 01/12/18 22:31 INR 0.94 (0.93-1.08) 01/12/18 22:31 APTT 29.8 Seconds (25.1-36.5) 01/12/18 22:31 Attending/Attestation - Attestation I have personally seen and examined this patient.: Yes I have fully participated in the care of the patient.: Yes I have reviewed all pertinent clinical information, including history, physical exam and plan: Yes
--- NOTE | 2018-01-20 15:44 | PN ---
DATE: 01/20/2018 REASON FOR THE CONSULTATION AND FOLLOWUP: Cardiac evaluation, preop evaluation for colonoscopy. SUBJECTIVE: The patient denies any chest pain, shortness of breath, or any palpitation. OBJECTIVE: GENERAL: Not in apparent distress. VITAL SIGNS: Temperature afebrile, heart rate 60, blood pressure 120/76. HEENT: PERRLA. Extraocular muscles intact. NECK: Supple. No carotid bruit. No thyromegaly. CHEST: Clear to auscultation. HEART: S1 and S2, regular. ABDOMEN: Soft. EXTREMITIES: Clubbing and cyanosis negative. LABORATORY DATA: Blood workup as follows; WBC 14.8, hemoglobin 10.9, hematocrit 32.9, platelet count 484. Chemistry shows sodium 141, potassium 4.6, chloride 90, carbon dioxide 23, anion gap of 20. BUN 41, creatinine 5. IMPRESSION: Acute kidney injury on chronic renal insufficiency, getting worse, baseline creatinine 3.2; anemia; severe peripheral arterial disease, status post peripheral intervention in 11/13/2017 due to possibly contrast induced nephropathy; drug eluting stent and balloon, right external iliac and stent, drug eluting, placed on right superficial femoral artery. The patient had echocardiogram on 11/10/2017, which shows a normal left ventricular function, mitral regurgitation trace to mild, mild tricuspid regurgitation, right ventricular systolic pressure 50, ejection fraction 61%; anemia; going for colonoscopy, also taking GoLYTELY, awaiting the bowel to be cleaned to have colonoscopy done. No cardiac symptoms at this time. No anginal symptoms. No arrhythmia or heart failure. RECOMMENDATIONS: Continue atorvastatin. Continue to supplement electrolytes. Continue bowel preparation for colonoscopy. The patient is cleared from cardiac point of view to have colonoscopy done. No absolute contraindication. We will follow with you. Monitor electrolytes closely. Monitor renal function. Thank you, Dr. Walters for providing us the opportunity in taking care of the patient, Geovanna Guerra. Jt Figueroa MD
[2018-01-20] MEDS ORDERED: Propofol 10 mg/ml Inj (20 ML) ONE (15:53)
[2018-01-20] MEDS ORDERED: Etomidate 20 mg/10ml Inj IV ONE (16:21)
[2018-01-20] MEDS: Sodium Chloride 0.9% 1,000 ML IV SCH (17:10)
--- NOTE | 2018-01-21 00:40 | PN ---
DATE: SUBJECTIVE: Patient is in bed, in no acute distress, nontoxic. No fevers and no chills. PHYSICAL EXAMINATION: VITAL SIGNS: Temperature is 98, blood pressure is 130/70, respiratory rate 16. HEENT: Unremarkable. NECK: Supple. LUNGS: Have decreased breath sounds. HEART: Normal S1 and S2. ABDOMEN: Soft, nontedner. LABORATORY EXAMINATION: Reveals white count 14,800, hemoglobin at 10, platelets of 484. Chemistries reveal a BUN of 41, creatinine of 5. ASSESSMENT AND PLAN: He is 77 years old with the right first toe gangrene. No evidence of an active infection. Peripheral vascular disease, necrotic toes and ulcerations, status post revascularization and acute encephalopathy and currently off of antibiotics. Patient is at risk for developing of nosocomial infection. Review of orders reveals the patient to be off of antibiotics. We will follow with you. Popeye Barber MD
[2018-01-21] MEDS: Pantoprazole 40 mg EC Tab PO SCH ×2 (06:55→18:29)
[2018-01-21 07:34] LABS: BASO # 0.03 K/mm3 (0.0-2.0); BASO % 0.2 % (0.0-3.0); EOS # 0.7 (0.0-0.7); EOS % 4.9 % (1.5-5.0); GRAN # 8.87 (1.4-6.5); GRAN % 65.3 % (50.0-68.0); HEMOGLOBIN 9.2 g/dL (14.0-18.0); LYMPH # 2.1 (1.2-3.4); LYMPH % 15.2 % (22.0-35.0); MEAN CELL VOLUME 89.1 fl (80.0-105.0); MEAN CORPUSCULAR HGB CONC 31.4 g/dl (31.0-37.0); MEAN PLATELET VOLUME 9.4 fl (7.0-11.0); MONO % 14.4 % (1.0-6.0); RBC 3.29 10^6/uL (3.5-6.1); RED CELL DISTRIBUTION WIDTH 15.2 % (11.5-14.5); WHITE BLOOD COUNT 13.6 10^3/ul (4.5-11.0)
[2018-01-21 08:03] LABS: ALB/GLOB RATIO 0.9 (1.1-1.8); ALBUMIN 3.1 g/dL (3.0-4.8); CALCIUM 7.8 mg/dL (8.4-10.5)
--- NOTE | 2018-01-21 08:22 | CP.PCM.PN ---
Subjective - Date & Time of Evaluation Date of Evaluation: 01/21/18 Time of Evaluation: 08:00 - Subjective Subjective: PGY-[address] Knight Patient seen and examined at bedside. No acute distress. Patient reports continuing pain in his right foot. He denies chest pain, sob, n/v, abd pain, headache, dizziness, fever, chills, hematuria, dysuria. Patient went to colonscopy yesterday which showed sigmoid polyp and diverticulosis. Patient is tolerating diet well. Patient has not other complaints at this time. Objective - Vital Signs/Intake and Output Vital Signs (last 24 hours): Temp Pulse Resp BP Pulse Ox 97.8 F 54 L 18 131/78 98 01/20/18 18:03 01/20/18 18:03 01/20/18 18:03 01/20/18 18:03 01/20/18 18:03 Intake and Output: 01/21/18 01/21/18 06:59 18:59 Intake Total 940 Output Total 200 Balance 740 - Medications Medications: Current Medications Acetaminophen (Tylenol 325mg Tab) 650 mg PO Q6H PRN PRN Reason: Pain, severe (8-10) Last Admin: 01/19/18 16:12 Dose: 650 mg Amlodipine Besylate (Norvasc) 10 mg PO DAILY [facility] Last Admin: 01/20/18 09:39 Dose: 10 mg Atorvastatin Calcium (Lipitor) 20 mg PO DIN [facility] Last Admin: 01/20/18 17:05 Dose: 20 mg Darbepoetin Matt (Aranesp) 100 mcg SC QWK [facility] Iron Sucrose 100 mg/ Sodium (Chloride) 105 mls @ 210 mls/hr IVPB DAILY [facility] Last Admin: 01/20/18 09:38 Dose: 210 mls/hr Sodium Chloride (Sodium Chloride 0.9%) 1,000 mls @ 100 mls/hr IV .Q10H [facility] Last Admin: 01/20/18 17:10 Dose: 100 mls/hr Metoprolol Tartrate (Lopressor) 25 mg PO BID [facility] Last Admin: 01/20/18 17:05 Dose: Not Given Pantoprazole Sodium (Protonix Ec Tab) 40 mg PO 0600,1600 [facility] Last Admin: 01/21/18 06:55 Dose: Not Given - Labs Labs: 01/21/18 07:10 01/21/18 07:10 PT 10.7 SECONDS (9.4-12.5) 01/12/18 22:31 INR 0.94 (0.93-1.08) 01/12/18 22:31 APTT 29.8 Seconds (25.1-36.5) 01/12/18 22:31 - Constitutional Appears: Well, No Acute Distress - Head Exam Head Exam: ATRAUMATIC, NORMOCEPHALIC - Eye Exam Eye Exam: EOMI, Normal appearance - ENT Exam ENT Exam: Mucous Membranes Moist - Respiratory Exam Respiratory Exam: Clear to Ausculation Bilateral, NORMAL BREATHING PATTERN. absent: Rhonchi, Wheezes, Respiratory Distress - Cardiovascular Exam Cardiovascular Exam: REGULAR RHYTHM. absent: Tachycardia, Murmur - GI/Abdominal Exam GI & Abdominal Exam: Soft, Normal Bowel Sounds. absent: Distended, Firm, Tenderness - Extremities Exam Extremities Exam: Normal Inspection - Neurological Exam Neurological Exam: Alert, Awake, Oriented x3 - Skin Skin Exam: Dry, Intact, Normal Color, Warm Assessment and Plan - Assessment and Plan (Free Text) Assessment: 77 yo male with PMH of CKD stage 4, anemia of chronic disease present with anemia s/p transfusion of 2 units pRBC. Anemia most likely multifactorial. iron deficiency CKD stage 4 esophageal, antral and duodenal ulcers Plan: - possible GI bleed superimposed on anemia of chronic disease - EGD showed esophageal, antral and duodenal ulcers - colonoscopy showed sigmoid polyp and diverticulosis - GI consulted, will follow up recommendations - iron studies showed low iron, will start IV iron while inpatient - epo level low due to patient's CKD - patient received aranesp 100mcg weekly once - hgb level has improved - podiatry consulted for right foot ulcer case reviewed and discussed with Dr. Knight
--- NOTE | 2018-01-21 08:54 | PN ---
DATE: 01/20/2018 SUBJECTIVE: Patient is a 77-year-old male. Patient is seen and examined in the bedside, looking comfortable, complaining about pain in the legs and in the feet, went for colonoscopy. Discussion done with Dr. Bernard. According to him the colon was clear. In the stomach there were polyps. One of the polyps was dangerous looking, which he sent for Pathology. The patient denies any chest pain, shortness of breath or any palpitation. PHYSICAL EXAMINATION: HEENT: Head normocephalic, atraumatic. Eyes, PERRLA. Extraocular muscles intact. Conjunctivae clear. Nose patent. NECK: Supple, no carotid bruit. No JVD or thyromegaly. CHEST: Bilaterally symmetrical. HEART: S1, S2 positive. LUNGS: Clear to auscultation. ABDOMEN: Soft, bowel sounds present. No organomegaly. EXTREMITIES: No edema. No cyanosis. NEUROLOGIC: Patient is awake, alert, moving all 4 extremities. No focal deficit. LABORATORY DATA: White blood cells 14.8, hemoglobin 10.9, hematocrit 32.9, platelet 484. Sodium 141, potassium 4.6, BUN 41, creatinine 5. ASSESSMENT AND PLAN: 77 year-old male patient with acute kidney injury on chronic renal failure, getting worse; baseline creatinine of 3.2, anemia, severe peripheral arterial disease, maybe neuropathy, drug-eluting stents and balloons were inserted. Patient came with a history of hemoglobin of 6.5. Type and crossmatch were done. Colonoscopy and endoscopy done by Dr. Bernard. According to him, the patient's stomach is filled with adenomas, most of them looked benign, but some he sent for Pathology. 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 The whole day, he was sitting on that bed. Gastrointestinal and deep venous thrombosis prophylaxis. Repeat labs. Shivani Walters MD [facility]
--- NOTE | 2018-01-21 10:04 | CP.PCM.PN ---
<Harinder Ocasio - Last Filed: 01/21/18 10:01> Subjective - Date & Time of Evaluation Date of Evaluation: 01/21/18 Time of Evaluation: 10:01 - Subjective Subjective: Podiatry progress note: Dr. Irvin/Dr. Pollard 77M seen and evaluated for bilateral foot ischemia with right 1st, 4th, and 5th digit gangrene. Patient resting comfortably at time of visit, NAD. Patient complains of pain to his right foot today. Reports that the left foot only hurts if someone touches his toes. Dressings to right foot clean/dry/intact. Patient does not like to wear the multipodus boots. Denies N/V/F/D/C/SOB/CP/ARANDA/ dizziness. Offers no other complaints. Objective - Vital Signs/Intake and Output Vital Signs (last 24 hours): Temp Pulse Resp BP Pulse Ox 98.2 F 67 18 139/75 97 01/21/18 06:00 01/21/18 06:00 01/21/18 06:00 01/21/18 06:00 01/21/18 06:00 Intake and Output: 01/21/18 01/21/18 06:59 18:59 Intake Total 940 Output Total 200 Balance 740 - Medications Medications: Current Medications Acetaminophen (Tylenol 325mg Tab) 650 mg PO Q6H PRN PRN Reason: Pain, severe (8-10) Last Admin: 01/19/18 16:12 Dose: 650 mg Amlodipine Besylate (Norvasc) 10 mg PO DAILY [facility] Last Admin: 01/20/18 09:39 Dose: 10 mg Atorvastatin Calcium (Lipitor) 20 mg PO DIN [facility] Last Admin: 01/20/18 17:05 Dose: 20 mg Darbepoetin Matt (Aranesp) 100 mcg SC QWK [facility] Iron Sucrose 100 mg/ Sodium (Chloride) 105 mls @ 210 mls/hr IVPB DAILY [facility] Last Admin: 01/20/18 09:38 Dose: 210 mls/hr Sodium Chloride (Sodium Chloride 0.9%) 1,000 mls @ 100 mls/hr IV .Q10H [facility] Last Admin: 01/20/18 17:10 Dose: 100 mls/hr Metoprolol Tartrate (Lopressor) 25 mg PO BID [facility] Last Admin: 01/20/18 17:05 Dose: Not Given Pantoprazole Sodium (Protonix Ec Tab) 40 mg PO 0600,1600 [facility] Last Admin: 01/21/18 06:55 Dose: Not Given - Labs Labs: 01/21/18 07:10 01/21/18 07:10 PT 10.7 SECONDS (9.4-12.5) 01/12/18 22:31 INR 0.94 (0.93-1.08) 01/12/18 22:31 APTT 29.8 Seconds (25.1-36.5) 01/12/18 22:31 - Constitutional Appears: Well, Non-toxic, No Acute Distress - Extremities Exam Additional comments: Bilateral LE focused exam Vasc: DP and PT faintly palpable, temperature gradient cool to cool, no edema noted to the LE, CFT delayed to the digits Derm: right hallux wound with demarcated dry eschar at distal medial tuft; 4th and 5th toes with dry demarcated eschars at distal rojelio, no fluctanance, no abscess, no clinical signs of infection, left foot digit 3 and 4 appear hyperpigmented with no open lesions, no clinical suspicion of active infection Neuro: gross and protective sensation intact Ortho: severe pain noted with light palpation to the right hallux and generalized forefoot, mild pain on the left forefoot, patient unable to MM secondary to guarding. - Neurological Exam Neurological Exam: Alert, Awake, Oriented x3 - Psychiatric Exam Psychiatric exam: Normal Affect, Normal Mood Assessment and Plan - Assessment and Plan (Free Text) Assessment: 77 year old male with right foot ischemia and gangrenous changes to 1st, 4th, 5th digits secondary to PVD Plan: Patient examined and evaluated with attending Dr. Pollard Afebrile; WBC 13.6 From previous admission: Vascular- no additional vascular intervention during this time Duplex RLE arterial US- Normal velocities are noted in the right SFA. No significant stenoses were noted IMPRESSION: Patent right external iliac stent and SFA R CAMILA IMPRESSION: 1. Borderline abnormal right CAMILA. Improved from previous study 2. Left SFA and tibial disease No podiatric surgical intervention at this time Continue local wound care - xeroform, DSD to right hallux and 5th digit; A&D ointment to bilateral LE Multipodus boots must be worn at all times while in bed; patient refusing despite education Patient will benefit to a long-term facility for physical therapy Podiatry will continue to follow <Jason Pollard - Last Filed: 01/21/18 15:18> Objective - Vital Signs/Intake and Output Vital Signs (last 24 hours): Temp Pulse Resp BP Pulse Ox 98.2 F 67 18 140/76 97 01/21/18 06:00 01/21/18 06:00 01/21/18 06:00 01/21/18 11:27 01/21/18 06:00 Intake and Output: 01/21/18 01/21/18 06:59 18:59 Intake Total 940 360 Output Total 200 150 Balance 740 210 - Medications Medications: Current Medications Acetaminophen (Tylenol 325mg Tab) 650 mg PO Q6H PRN PRN Reason: Pain, severe (8-10) Last Admin: 01/19/18 16:12 Dose: 650 mg Amlodipine Besylate (Norvasc) 10 mg PO DAILY [facility] Last Admin: 01/21/18 11:23 Dose: 10 mg Atorvastatin Calcium (Lipitor) 20 mg PO DIN [facility] Last Admin: 01/20/18 17:05 Dose: 20 mg Darbepoetin Matt (Aranesp) 100 mcg SC QWK [facility] Iron Sucrose 100 mg/ Sodium (Chloride) 105 mls @ 210 mls/hr IVPB DAILY [facility] Last Admin: 01/21/18 11:28 Dose: 210 mls/hr Sodium Chloride (Sodium Chloride 0.9%) 1,000 mls @ 100 mls/hr IV .Q10H [facility] 234 [facility] Last Admin: 01/21/18 11:23 Dose: 100 mls/hr Metoprolol Tartrate (Lopressor) 25 mg PO BID [facility] Last Admin: 01/21/18 11:27 Dose: 25 mg Pantoprazole Sodium (Protonix Ec Tab) 40 mg PO 0600,1600 [facility] Last Admin: 01/21/18 06:55 Dose: Not Given - Labs Labs: 01/21/18 07:10 01/21/18 07:10 PT 10.7 SECONDS (9.4-12.5) 01/12/18 22:31 INR 0.94 (0.93-1.08) 01/12/18 22:31 APTT 29.8 Seconds (25.1-36.5) 01/12/18 22:31 Attending/Attestation - Attestation I have personally seen and examined this patient.: Yes I have fully participated in the care of the patient.: Yes I have reviewed all pertinent clinical information, including history, physical exam and plan: Yes
[2018-01-21] MEDS: Sodium Chloride 0.9% 1,000 ML IV SCH (11:23)
--- NOTE | 2018-01-21 14:02 | CP.PCM.PN ---
Subjective - Date & Time of Evaluation Date of Evaluation: 01/21/18 Time of Evaluation: 09:30 - Subjective Subjective: GI progress note. Dr. Bernard Pt seen and examined at bedside. No acute events overnight. No N/V/D. Reports a decreased appetite, denies wanting to eat food. No rectal bleeding reported. No new complaints. Objective - Vital Signs/Intake and Output Vital Signs (last 24 hours): Temp Pulse Resp BP Pulse Ox 98.2 F 67 18 140/76 97 01/21/18 06:00 01/21/18 06:00 01/21/18 06:00 01/21/18 11:27 01/21/18 06:00 Intake and Output: 01/21/18 01/21/18 06:59 18:59 Intake Total 940 Output Total 200 Balance 740 - Medications Medications: Current Medications Acetaminophen (Tylenol 325mg Tab) 650 mg PO Q6H PRN PRN Reason: Pain, severe (8-10) Last Admin: 01/19/18 16:12 Dose: 650 mg Amlodipine Besylate (Norvasc) 10 mg PO DAILY [facility] Last Admin: 01/21/18 11:23 Dose: 10 mg Atorvastatin Calcium (Lipitor) 20 mg PO DIN [facility] Last Admin: 01/20/18 17:05 Dose: 20 mg Darbepoetin Matt (Aranesp) 100 mcg SC QWK [facility] Iron Sucrose 100 mg/ Sodium (Chloride) 105 mls @ 210 mls/hr IVPB DAILY [facility] Last Admin: 01/21/18 11:28 Dose: 210 mls/hr Sodium Chloride (Sodium Chloride 0.9%) 1,000 mls @ 100 mls/hr IV .Q10H [facility] Last Admin: 01/21/18 11:23 Dose: 100 mls/hr Metoprolol Tartrate (Lopressor) 25 mg PO BID [facility] Last Admin: 01/21/18 11:27 Dose: 25 mg Pantoprazole Sodium (Protonix Ec Tab) 40 mg PO 0600,1600 [facility] Last Admin: 01/21/18 06:55 Dose: Not Given - Labs Labs: 01/21/18 07:10 01/21/18 07:10 PT 10.7 SECONDS (9.4-12.5) 01/12/18 22:31 INR 0.94 (0.93-1.08) 01/12/18 22:31 APTT 29.8 Seconds (25.1-36.5) 01/12/18 22:31 - Constitutional Appears: Non-toxic, No Acute Distress, Older Than Stated Age - Head Exam Head Exam: ATRAUMATIC, NORMAL INSPECTION, NORMOCEPHALIC - Eye Exam Eye Exam: EOMI, Normal appearance - ENT Exam ENT Exam: Mucous Membranes Moist - Cardiovascular Exam Cardiovascular Exam: RRR. absent: JVD - GI/Abdominal Exam GI & Abdominal Exam: Soft. absent: Distended, Firm, Guarding, Rigid, Tenderness , Rebound - Extremities Exam Extremities Exam: Normal Inspection. absent: Calf Tenderness - Neurological Exam Neurological Exam: Alert, Awake, Oriented x3 - Skin Skin Exam: Dry, Intact, Normal Color, Warm Assessment and Plan - Assessment and Plan (Free Text) Assessment: 77yo M with anemia of chronic disease. Possible GIB. - s/p EGD on 01/15: Esophageal ulcers, Antral Ulcers, Duodenal Ulcers. No active bleeding noted. - s/p Colonoscopy on 01/20: Sigmoid colon polyp, diverticulosis. no signs of active bleeding noted. Plan: - Diet as tolerated. Encourage increased PO intake. - f/u renal work-up of RADHA - may continue PPI - on iron supplements Further recs as per Dr. Joana Harden PGY1
--- NOTE | 2018-01-21 14:27 | PN ---
DATE: 01/21/2018 LOCATION: The patient in room 564, bed 1. REASON FOR CONSULTATION AND FOLLOWUP: Cardiac evaluation, preop evaluation for colonoscopy. SUBJECTIVE: The patient denies any chest pain, shortness of breath, or palpitation. The patient is lying flat in bed without any cardiac symptoms. PHYSICAL EXAMINATION: VITAL SIGNS: Blood pressure 140/76, respiration 18, pulse 67, temperature 98.2. HEENT: Head is normocephalic. Eyes: Pupils normal. Conjunctivae slightly pale. NECK: JVP low. Carotids equal. THORAX: AP diameter normal. LUNGS: Clear. CARDIOVASCULAR: S1 and S2. ABDOMEN: Soft. Bowel sounds normal. EXTREMITIES: No clubbing. No cyanosis. LABORATORY DATA: WBC 13.6, hemoglobin 9.2, hematocrit 29.3, platelet 450. Sodium 139, potassium 3.6, BUN 36, creatinine 4.6. AST and ALT normal. Total protein and albumin normal. The patient had colonoscopy yesterday; showed sigmoid colon polyp and diverticulosis, status post polypectomy. DIAGNOSES: Acute kidney injury, [id number] renal insufficiency, anemia, gastrointestinal bleeding. The patient had colonoscopy, found to have sigmoid colon polyp, has status post polypectomy and also on colonoscopy, found to have diverticulosis. Echo on 11/10/2017 showed normal left ventricular function, [id number] mitral regurgitation, mild tricuspid regurgitation, right ventricular systolic pressure 50 mmHg, ejection fraction of hardly 61%. The patient also had peripheral intervention done by Dr. Rolle on 11/13/2017 and abdominal aortogram, selective right lower extremity angiogram, right superficial femoral artery, drug-eluting stent, balloon angioplasty was done. Right external iliac angioplasty and stent placement, selective renal angiogram with pressure measurement done. The patient was admitted with low hemoglobin averaging 6.5, status post transfusion. Hemoglobin improved to 9.2. PLAN: Clinically, the patient is stable at this point from cardiovascular status, point of view. The patient already had colonoscopy and we recommended to continue GI workup and the patient is already on iron sucrose, Lipitor 20 mg daily, metoprolol 25 b.i.d., amlodipine 10 mg daily, Protonix 40 b.i.d. The patient is also getting IV fluid 100 mL an hour. We will follow with you. Jt Sharpe MD
--- NOTE | 2018-01-21 21:12 | CP.PCM.PN ---
Subjective - Date & Time of Evaluation Date of Evaluation: 01/21/18 Time of Evaluation: 13:05 - Subjective Subjective: Afebrile, not in distress. Objective - Vital Signs/Intake and Output Vital Signs (last 24 hours): Temp Pulse Resp BP Pulse Ox 98.3 F 62 20 130/71 98 01/21/18 14:00 01/21/18 18:30 01/21/18 14:00 01/21/18 18:30 01/21/18 14:00 Intake and Output: 01/21/18 01/22/18 18:59 06:59 Intake Total 360 Output Total 150 Balance 210 - Medications Medications: Current Medications Acetaminophen (Tylenol 325mg Tab) 650 mg PO Q6H PRN PRN Reason: Pain, severe (8-10) Last Admin: 01/19/18 16:12 Dose: 650 mg Amlodipine Besylate (Norvasc) 10 mg PO DAILY [facility] Last Admin: 01/21/18 11:23 Dose: 10 mg Atorvastatin Calcium (Lipitor) 20 mg PO DIN [facility] Last Admin: 01/21/18 18:29 Dose: 20 mg Darbepoetin Matt (Aranesp) 100 mcg SC QWK [facility] Iron Sucrose 100 mg/ Sodium (Chloride) 105 mls @ 210 mls/hr IVPB DAILY [facility] Last Admin: 01/21/18 11:28 Dose: 210 mls/hr Sodium Chloride (Sodium Chloride 0.9%) 1,000 mls @ 100 mls/hr IV .Q10H [facility] Last Admin: 01/21/18 11:23 Dose: 100 mls/hr Metoprolol Tartrate (Lopressor) 25 mg PO BID [facility] Last Admin: 01/21/18 18:30 Dose: 25 mg Pantoprazole Sodium (Protonix Ec Tab) 40 mg PO 0600,1600 [facility] Last Admin: 01/21/18 18:29 Dose: 40 mg - Labs Labs: 01/21/18 07:10 01/21/18 07:10 PT 10.7 SECONDS (9.4-12.5) 01/12/18 22:31 INR 0.94 (0.93-1.08) 01/12/18 22:31 APTT 29.8 Seconds (25.1-36.5) 01/12/18 22:31 - Constitutional Appears: Chronically Ill - Head Exam Head Exam: NORMAL INSPECTION - Respiratory Exam Respiratory Exam: Decreased Breath Sounds - Cardiovascular Exam Cardiovascular Exam: +S1, +S2 - GI/Abdominal Exam GI & Abdominal Exam: Soft. absent: Tenderness Assessment and Plan - Assessment and Plan (Free Text) Plan: Assessment right 1st toe gangrene with no evidence of active infection peripheral vascular disease with necrotic toes and ulceration bilaterally, S/P revascularization consider HCAP, bilateral, clinically improving acute encephalopathy, etiology to be determined, now resolved history of Right foot cellulitis with right hallux gangrene Peripheral vascular disease HTN Plan continue to monitor off antibiotics since he is at risk for hospital-acquired infections
[2018-01-22] MEDS: Pantoprazole 40 mg EC Tab PO SCH ×2 (05:32→18:48)
[2018-01-22 07:03] LABS: BASO # 0.03 K/mm3 (0.0-2.0); BASO % 0.2 % (0.0-3.0); EOS # 0.6 (0.0-0.7); EOS % 4.7 % (1.5-5.0); GRAN # 7.39 (1.4-6.5); GRAN % 61.5 % (50.0-68.0); HEMOGLOBIN 9.4 g/dL (14.0-18.0); LYMPH # 2.4 (1.2-3.4); LYMPH % 19.6 % (22.0-35.0); MEAN CORPUSCULAR HEMOGLOBIN 27.6 pg (25.0-35.0); MEAN CORPUSCULAR HGB CONC 31.3 g/dl (31.0-37.0); MEAN PLATELET VOLUME 9.6 fl (7.0-11.0); MONO # 1.7 (0.1-0.6); RBC 3.41 10^6/uL (3.5-6.1)
[2018-01-22 07:38] LABS: ALB/GLOB RATIO 0.9 (1.1-1.8); CALCIUM 7.9 mg/dL (8.4-10.5)
[2018-01-22] MEDS ORDERED: Sodium Chloride 0.9% 1,000 ML IV SCH (08:56)
--- NOTE | 2018-01-22 09:58 | CP.PCM.PN ---
<Harinder Ocasio - Last Filed: 01/22/18 09:56> Subjective - Date & Time of Evaluation Date of Evaluation: 01/22/18 Time of Evaluation: 09:56 - Subjective Subjective: Podiatry progress note: Dr. Irvin/Dr. Pollard 77M seen and evaluated for bilateral foot ischemia with right 1st, 4th, and 5th digit gangrene. Patient resting comfortably at time of visit, NAD. Dressings to right foot clean/dry/intact. Patient is AAOx3. Reports he has pain when someone touches the feet. Patient does not like to wear the multipodus boots. Denies N/V /F/D/C/SOB/CP/ARANDA/dizziness. Offers no other complaints. Objective - Vital Signs/Intake and Output Vital Signs (last 24 hours): Temp Pulse Resp BP Pulse Ox 98 F 66 18 133/65 98 01/22/18 08:02 01/22/18 08:02 01/22/18 08:02 01/22/18 08:02 01/22/18 08:02 Intake and Output: 01/22/18 01/22/18 06:59 18:59 Intake Total 1200 Output Total 200 Balance 1000 - Medications Medications: Current Medications Acetaminophen (Tylenol 325mg Tab) 650 mg PO Q6H PRN PRN Reason: Pain, severe (8-10) Last Admin: 01/22/18 05:32 Dose: 650 mg Amlodipine Besylate (Norvasc) 10 mg PO DAILY [facility] Last Admin: 01/21/18 11:23 Dose: 10 mg Atorvastatin Calcium (Lipitor) 20 mg PO DIN [facility] Last Admin: 01/21/18 18:29 Dose: 20 mg Darbepoetin Matt (Aranesp) 100 mcg SC QWK [facility] Iron Sucrose 100 mg/ Sodium (Chloride) 105 mls @ 210 mls/hr IVPB DAILY [facility] Last Admin: 01/21/18 11:28 Dose: 210 mls/hr Sodium Chloride (Sodium Chloride 0.9%) 1,000 mls @ 75 mls/hr IV .[id number] [facility] Metoprolol Tartrate (Lopressor) 25 mg PO BID [facility] Last Admin: 01/21/18 18:30 Dose: 25 mg Pantoprazole Sodium (Protonix Ec Tab) 40 mg PO 0600,1600 [facility] Last Admin: 01/22/18 05:32 Dose: 40 mg - Labs Labs: 01/22/18 06:20 01/22/18 06:20 PT 10.7 SECONDS (9.4-12.5) 01/12/18 22:31 INR 0.94 (0.93-1.08) 01/12/18 22:31 APTT 29.8 Seconds (25.1-36.5) 01/12/18 22:31 - Constitutional Appears: Well, Non-toxic, No Acute Distress - Extremities Exam Additional comments: Bilateral LE focused exam Vasc: DP and PT faintly palpable, temperature gradient cool to cool, no edema noted to the LE, CFT delayed to the digits Derm: right hallux wound with demarcated dry eschar at distal medial tuft; 4th and 5th toes with dry demarcated eschars at distal rojelio, no fluctanance, no abscess, no clinical signs of infection, left foot digit 3 and 4 appear hyperpigmented with no open lesions, no clinical suspicion of active infection Neuro: gross and protective sensation intact Ortho: severe pain noted with light palpation to the right hallux and generalized forefoot, mild pain on the left forefoot, patient unable to MM secondary to guarding. - Neurological Exam Neurological Exam: Alert, Awake, Oriented x3 - Psychiatric Exam Psychiatric exam: Normal Affect, Normal Mood Assessment and Plan - Assessment and Plan (Free Text) Assessment: 77 year old male with right foot ischemia and gangrenous changes to 1st, 4th, 5th digits secondary to PVD Plan: Patient examined and evaluated with attending Dr. Pollard Afebrile; WBC 12.0 From previous admission: Vascular- no additional vascular intervention during this time Duplex RLE arterial US- Normal velocities are noted in the right SFA. No significant stenoses were noted IMPRESSION: Patent right external iliac stent and SFA R CAMILA IMPRESSION: 1. Borderline abnormal right CAMILA. Improved from previous study 2. Left SFA and tibial disease No podiatric surgical intervention at this time Continue local wound care - xeroform, DSD to right hallux and 5th digit; A&D ointment to bilateral LE Multipodus boots must be worn at all times while in bed; patient refusing despite education Patient will benefit to a long-term facility for physical therapy Podiatry will continue to follow <Jason Pollard - Last Filed: 01/22/18 11:30> Objective - Vital Signs/Intake and Output Vital Signs (last 24 hours): Temp Pulse Resp BP Pulse Ox 98 F 88 18 135/66 98 01/22/18 08:02 01/22/18 10:24 01/22/18 08:02 01/22/18 10:25 01/22/18 08:02 Intake and Output: 01/22/18 01/22/18 06:59 18:59 Intake Total 1200 Output Total 200 Balance 1000 - Medications Medications: Current Medications Acetaminophen (Tylenol 325mg Tab) 650 mg PO Q6H PRN PRN Reason: Pain, severe (8-10) Last Admin: 01/22/18 05:32 Dose: 650 mg Amlodipine Besylate (Norvasc) 10 mg PO DAILY [facility] Last Admin: 01/22/18 10:25 Dose: 10 mg Atorvastatin Calcium (Lipitor) 20 mg PO DIN [facility] Last Admin: 01/21/18 18:29 Dose: 20 mg Cyanocobalamin (Vitamin B12 1000 Mcg/Ml Inj) 1,000 mcg IM DAILY [facility] Darbepoetin Matt (Aranesp) 100 mcg SC DAILY [facility] Iron Sucrose 100 mg/ Sodium (Chloride) 105 mls @ 210 mls/hr IVPB DAILY [facility] Last Admin: 01/22/18 10:25 Dose: 210 mls/hr Sodium Chloride (Sodium Chloride 0.9%) 1,000 mls @ 75 mls/hr IV .[id number] [facility] Last Admin: 01/22/18 10:24 Dose: 75 mls/hr Metoprolol Tartrate (Lopressor) 25 mg PO BID [facility] Last Admin: 01/22/18 10:24 Dose: 25 mg Pantoprazole Sodium (Protonix Ec Tab) 40 mg PO 0600,1600 [facility] Last Admin: 01/22/18 05:32 Dose: 40 mg - Labs Labs: 01/22/18 06:20 01/22/18 06:20 PT 10.7 SECONDS (9.4-12.5) 01/12/18 22:31 INR 0.94 (0.93-1.08) 01/12/18 22:31 APTT 29.8 Seconds (25.1-36.5) 01/12/18 22:31 Attending/Attestation - Attestation I have personally seen and examined this patient.: Yes I have fully participated in the care of the patient.: Yes I have reviewed all pertinent clinical information, including history, physical exam and plan: Yes
--- NOTE | 2018-01-22 10:04 | CP.PCM.PN ---
Subjective - Date & Time of Evaluation Date of Evaluation: 01/22/18 Time of Evaluation: 09:00 - Subjective Subjective: PGY-[address] Knight Patient seen and examined at bedside. No acute distress. Patient reports continuing pain in his right foot. He denies chest pain, sob, n/v, abd pain, headache, dizziness, fever, chills, hematuria, dysuria. Patient is tolerating diet well. He would like to go home soon. Patient has not other complaints at this time. Objective - Vital Signs/Intake and Output Vital Signs (last 24 hours): Temp Pulse Resp BP Pulse Ox 98 F 66 18 133/65 98 01/22/18 08:02 01/22/18 08:02 01/22/18 08:02 01/22/18 08:02 01/22/18 08:02 Intake and Output: 01/22/18 01/22/18 06:59 18:59 Intake Total 1200 Output Total 200 Balance 1000 - Medications Medications: Current Medications Acetaminophen (Tylenol 325mg Tab) 650 mg PO Q6H PRN PRN Reason: Pain, severe (8-10) Last Admin: 01/22/18 05:32 Dose: 650 mg Amlodipine Besylate (Norvasc) 10 mg PO DAILY [facility] Last Admin: 01/21/18 11:23 Dose: 10 mg Atorvastatin Calcium (Lipitor) 20 mg PO DIN [facility] Last Admin: 01/21/18 18:29 Dose: 20 mg Darbepoetin Matt (Aranesp) 100 mcg SC QWK [facility] Iron Sucrose 100 mg/ Sodium (Chloride) 105 mls @ 210 mls/hr IVPB DAILY [facility] Last Admin: 01/21/18 11:28 Dose: 210 mls/hr Sodium Chloride (Sodium Chloride 0.9%) 1,000 mls @ 75 mls/hr IV .[id number] [facility] Metoprolol Tartrate (Lopressor) 25 mg PO BID [facility] Last Admin: 01/21/18 18:30 Dose: 25 mg Pantoprazole Sodium (Protonix Ec Tab) 40 mg PO 0600,1600 [facility] Last Admin: 01/22/18 05:32 Dose: 40 mg - Labs Labs: 01/22/18 06:20 01/22/18 06:20 PT 10.7 SECONDS (9.4-12.5) 01/12/18 22:31 INR 0.94 (0.93-1.08) 01/12/18 22:31 APTT 29.8 Seconds (25.1-36.5) 01/12/18 22:31 - Constitutional Appears: No Acute Distress - Head Exam Head Exam: ATRAUMATIC, NORMOCEPHALIC - Eye Exam Eye Exam: Normal appearance - ENT Exam ENT Exam: Mucous Membranes Moist - Respiratory Exam Respiratory Exam: Clear to Ausculation Bilateral, NORMAL BREATHING PATTERN. absent: Rhonchi, Wheezes, Respiratory Distress - Cardiovascular Exam Cardiovascular Exam: REGULAR RHYTHM, +S1, +S2. absent: Tachycardia, Murmur - GI/Abdominal Exam GI & Abdominal Exam: Soft, Tenderness, Normal Bowel Sounds. absent: Distended, Firm - Extremities Exam Extremities Exam: Normal Inspection. absent: Pedal Edema, Tenderness - Neurological Exam Neurological Exam: Alert, Awake, Oriented x3 - Psychiatric Exam Psychiatric exam: Normal Affect, Normal Mood - Skin Skin Exam: Dry, Intact, Normal Color, Warm Assessment and Plan - Assessment and Plan (Free Text) Assessment: 77 yo male with PMH of CKD stage 4, anemia of chronic disease present with anemia s/p transfusion of 2 units pRBC. Anemia most likely multifactorial. iron deficiency CKD stage 4 esophageal, antral and duodenal ulcers diverticulosis - possible GI bleed superimposed on anemia of chronic disease - EGD showed esophageal, antral and duodenal ulcers - colonoscopy showed sigmoid polyp and diverticulosis - pending biopsy of sigmiod polyp - GI consulted, will follow up recommendations - iron studies showed low iron, continue IV iron while inpatient - epo level low due to patient's CKD - patient received aranesp 100mcg weekly - hgb level has improved - podiatry consulted for right foot ulcer case reviewed and discussed with Dr. Knight
--- NOTE | 2018-01-22 14:19 | CON ---
REFERRING PHYSICIAN: Shivani Walters MD. REASON FOR CONSULTATION: Acute kidney injury with chronic kidney disease. CHIEF COMPLAINT AND HISTORY OF PRESENT ILLNESS: This is a 77-year-old male, who had come into the hospital because of right foot gangrene. The patient has a history of peripheral vascular disease, hypertension. He has CKD stage 4. His creatinine baseline is 3 to 3.2. The patient's creatinine worsened over the last few days and the creatinine was 5 two days ago, it is started to improve. The patient has multiple comorbidities, most of the information was taken from the medical records that I reviewed as well as speaking with the patient. The patient is a resident at [facility]. He came in because of right foot cellulitis and anemia. The patient was also having episodes of V-tach on telemetry monitoring. The patient denies any chest pain, no shortness of breath, no headaches, no dizziness, no fevers or chills. Previously, the patient had creatinine that was elevated to 7, it is not clear what the patient's underlying chronic kidney disease is. He is not a good historian and was not even aware that he has kidney disease. He feels weak. He has a difficult time ambulating. He says his right foot is feeling better. He has not been eating well. REVIEW OF SYSTEMS: All other review of symptoms are within normal limits except as mentioned. PAST MEDICAL HISTORY: Peripheral arterial disease, hypertension. PAST SURGICAL HISTORY: Right hip arthroplasty. HOME MEDICATIONS: Amlodipine, hydralazine, Lipitor and aspirin. Medications on the hospital has been reviewed. SOCIAL HISTORY: He is a smoker of 45 pack a year. He denies alcohol and drug use. PHYSICAL EXAMINATION: VITAL SIGNS: Temperature is 98, pulse is 66, blood pressure 133/65, respirations 18, O2 saturations 98%. Height is 5 feet 5, weight is 98 pounds. GENERAL: The patient is well nourished, but not in any pain. HEENT: Atraumatic and normocephalic. Anicteric sclerae. Moist mucosa. [place] conjunctivae. No oral lesions. NECK: No JVD, anterior and posterior adenopathy, thyromegaly, or bruits. CARDIOVASCULAR: S1 and S2 regular. No murmur, rubs, or gallop. LUNGS: Clear to auscultation bilaterally. No wheezes, rales, or rhonchi. ABDOMEN: Bowel sounds are positive. Soft, nontender and nondistended. No hepatosplenomegaly. No rebound and no guarding EXTREMITIES: No cyanosis, clubbing, or edema. The right foot is covered with a dressing. 1+ pulses in the left foot. NEUROLOGIC: No facial asymmetry. Tongue is midline. No uvula deviation. Power is 5/5 upper extremity and lower extremity. Sensation intact in upper extremity and lower extremity. PSYCHIATRIC: He is awake, alert and oriented x3. No anxiety or depression. He has normal affect. GENITOURINARY: No CVA tenderness. VASCULAR: 2+ pulses in the carotid pulses and pedal pulses. SKIN: No erythema or nodules SPINE: Shows normal curvature. LABORATORY DATA: Has been reviewed. Potassium is 3.5, white count of 12, hemoglobin 9.4. Creatinine is 4, iron saturation is 40%. Chest x-ray done on 01/12/2018, he has no active pulmonary disease. ASSESSMENT: 1. Acute kidney injury with chronic kidney disease, stage 4. 2. Peripheral arterial disease. 3. Hypertension. 4. History of esophageal ulcers and duodenal ulcers. 5. Anemia, chronic, iron deficiency. PLAN: The patient is currently comfortable. He has advanced kidney disease. The patient has been on IV fluids. I will decrease the patient's IV fluids to 75 an hour. The patient is on IV iron by Hematology. The patient is on Lipitor for dyslipidemia. He is going to be Norvasc for hypotension. The patient is on Tylenol as needed. He is on a heart-healthy diet. The acute kidney injury is most likely prerenal in origin. The patient has had 24-hour urine collection done in 10/2017 and had 389 mg of proteinuria. The patient may benefit from an ELOY inhibitor to help with the mild proteinuria and the chronic kidney disease. I will put the patient on ramipril low dose. The patient's potassium will need to be monitored. Once the creatinine stabilized to it's baseline, should consider ELOY inhibitors as an outpatient. Thank you for allowing me to participate in the care of your patient. Erickson Alcaraz MD [facility] # [id number]
--- NOTE | 2018-01-22 15:00 | PN ---
DATE: 01/22/2018 LOCATION: The patient is in room 564, bed 1. REASON FOR CONSULTATION AND FOLLOWUP: Cardiac evaluation; preop evaluation for colonoscopy; renal failure; mild tricuspid regurgitation; moderate pulmonary hypertension with RVSP 50 mmHg; peripheral vascular disease, status post drug-eluting stent insertion by Dr. Rolle; anemia. SUBJECTIVE: The patient is sitting in chair without any cardiac symptoms like chest pain, shortness of breath, or palpitation. OBJECTIVE: VITAL SIGNS: Blood pressure 135/56, respirations 18, pulse 88, temperature 98. HEENT: Head is normocephalic. Eyes: Pupils normal. Conjunctivae slightly pale. NECK: JVP low. Carotids equal. THORAX: AP diameter normal. LUNGS: Clear. CARDIOVASCULAR: S1 and S2. ABDOMEN: Soft, nontender. No organomegaly. Bowel sounds normal. EXTREMITIES: No clubbing. No cyanosis. LABORATORY DATA: WBC 12, hemoglobin 9.4, hematocrit 30, and platelets 440. Sodium 138, potassium 3.5. BUN 29, creatinine 4. AST 24, ALT 24. Total protein and albumin normal. The patient had colonoscopy which showed sigmoid colon polyp, diverticulosis. The patient had polypectomy. DIAGNOSES: Acute on chronic kidney injury; gastrointestinal bleeding; colon polyp, status post polypectomy; diverticulosis; anemia; minimal hypokalemia; obesity. PLAN: Echo on 11/10/2017, showed normal LV ejection function of 61%. The patient also had peripheral intervention done by Dr. Rolle on 11/13/2017, with abdominal aortogram, selective right lower extremity angiography, right superficial femoral artery drug-eluting stent, balloon angioplasty was also done, right external iliac angioplasty and stent placement, selective renal angiogram with pressure measurement was done. The patient's hemoglobin on admission was 6.5 and patient is patient status post transfusion, now the hemoglobin is 9.4. Patient is getting iron sucrose, Lipitor 20 mg daily, metoprolol 25 b.i.d., amlodipine 10 mg daily, Protonix 40 mg p.o. b.i.d. We will follow with you. We will continue present therapy at this moment. Jt Sharpe MD [facility] # [id number]
--- NOTE | 2018-01-22 16:33 | PN ---
DATE: 01/21/2018 SUBJECTIVE: Patient is a 77-year-old male. Patient was seen and examined on the bedside on 01/21/2018, looking comfortable except pain in his right foot. No nausea, vomiting, diarrhea. No hematuria or hematochezia. No headache or dizziness. No chest pain or palpitation. Status post colonoscopy. PHYSICAL EXAMINATION: VITAL SIGNS: Temperature 97.8, pulse 54, respiratory rate 18, blood pressure 131/78, pulse oximetry 98%. HEENT: Head: Normocephalic, atraumatic. Eyes: PERRLA. Extraocular muscles intact. Conjunctivae clear. Nose patent. Mucous membranes moist. NECK: Supple. No carotid bruit. No JVD or thyromegaly. CHEST: Bilaterally symmetrical. HEART: S1, S2 positive. LUNGS: Clear to auscultation. ABDOMEN: Soft. Bowel sounds present. No organomegaly. EXTREMITIES: No edema. No cyanosis. NEUROLOGICAL: Patient is awake and alert. Moving all 4 extremities. No focal deficit. MEDICATIONS: Tylenol, Norvasc, Lipitor, Aranesp, NS, Lopressor, Protonix. LABORATORY DATA: White blood cells 13.6, hemoglobin 9.2, hematocrit 29.6, platelet 450. Sodium 139, potassium 3.6, BUN 36, creatinine 4.6, glucose 92. ASSESSMENT AND PLAN: Mr. Geovanna Guerra is a 77-year-old male with leukocytosis, anemia, renal insufficiency, anemia looks like anemia of chronic disease. The patient went for colonoscopy shows polyp and diverticulosis. No source of active bleeding, chronic kidney disease stage IV, status post blood transfusion with 2 units. Anemia looks like multifactorial, iron deficiency. Esophageal, antral and duodenal ulcers. According to GI, there is no gastrointestinal bleeding. Anemia looks like, chronic disease and kidney disease. Discussion done with Dr. Bernard. The patient is getting IV iron infusions. [employer] is on the case. Gastrointestinal and deep venous thrombosis prophylaxis. Repeat labs. We will follow up. Shivani Walters MD [facility]
--- NOTE | 2018-01-22 17:52 | CP.PCM.PN ---
Subjective - Date & Time of Evaluation Date of Evaluation: 01/22/18 Time of Evaluation: 11:10 - Subjective Subjective: Seen and examined at the bedside earlier today, chart review. No new complaints or acute overnight events reported. Patient reports that he will be eating pizza for lunch, as per nursing staff, family to bring in food. Patient expressed he dislikes the hospital food. No reports of bleeding. Objective - Vital Signs/Intake and Output Vital Signs (last 24 hours): Temp Pulse Resp BP Pulse Ox 98.2 F 63 18 130/80 98 01/22/18 14:00 01/22/18 14:00 01/22/18 14:00 01/22/18 14:00 01/22/18 14:00 Intake and Output: 01/22/18 01/22/18 06:59 18:59 Intake Total 1200 480 Output Total 200 200 Balance 1000 280 - Medications Medications: Current Medications Acetaminophen (Tylenol 325mg Tab) 650 mg PO Q6H PRN PRN Reason: Pain, severe (8-10) Last Admin: 01/22/18 05:32 Dose: 650 mg Amlodipine Besylate (Norvasc) 10 mg PO DAILY [facility] Last Admin: 01/22/18 10:25 Dose: 10 mg Atorvastatin Calcium (Lipitor) 20 mg PO DIN [facility] Last Admin: 01/21/18 18:29 Dose: 20 mg Cyanocobalamin (Vitamin B12 1000 Mcg/Ml Inj) 1,000 mcg IM DAILY [facility] Last Admin: 01/22/18 13:26 Dose: Not Given Darbepoetin Matt (Aranesp) 100 mcg SC DAILY [facility] Stop: 01/25/18 10:01 Iron Sucrose 100 mg/ Sodium (Chloride) 105 mls @ 210 mls/hr IVPB DAILY [facility] Last Admin: 01/22/18 10:25 Dose: 210 mls/hr Sodium Chloride (Sodium Chloride 0.9%) 1,000 mls @ 75 mls/hr IV .[id number] [facility] Last Admin: 01/22/18 10:24 Dose: 75 mls/hr Metoprolol Tartrate (Lopressor) 25 mg PO BID [facility] Last Admin: 01/22/18 10:24 Dose: 25 mg Pantoprazole Sodium (Protonix Ec Tab) 40 mg PO 0600,1600 [facility] Last Admin: 01/22/18 05:32 Dose: 40 mg - Labs Labs: 04/26/18 06:20 01/22/18 06:20 PT 10.7 SECONDS (9.4-12.5) 01/12/18 22:31 INR 0.94 (0.93-1.08) 01/12/18 22:31 APTT 29.8 Seconds (25.1-36.5) 01/12/18 22:31 - Constitutional Appears: No Acute Distress - Head Exam Head Exam: NORMOCEPHALIC - Eye Exam Eye Exam: Normal appearance. absent: Scleral icterus - ENT Exam ENT Exam: Mucous Membranes Moist (rectal) - Neck Exam Neck Exam: Normal Inspection - Respiratory Exam Respiratory Exam: NORMAL BREATHING PATTERN. absent: Respiratory Distress - Cardiovascular Exam Cardiovascular Exam: +S1, +S2 - GI/Abdominal Exam GI & Abdominal Exam: Soft, Normal Bowel Sounds. absent: Guarding, Tenderness, Rebound - Extremities Exam Extremities Exam: absent: Calf Tenderness - Neurological Exam Neurological Exam: Alert, Awake, Oriented x3 (the) - Skin Skin Exam: Dry, Warm Assessment and Plan - Assessment and Plan (Free Text) Assessment: Assessment: Anemia of chronic disease Status post endoscopy, found to have esophageal ulcers/antral ulcers/duodenal ulcers no active bleeding Status post colonoscopy found to have colon polyp/diverticulosis and no signs of active bleeding Poor appetite ARF on CRF Elevated alkaline phosphatase, hepatitis panel done on 12/31 was negative/patient had also MRI of lower extremity on negative for osteomyelitis PAD Plan: Diet as tolerated, encourage oral intake/on dietary supplement Continue PPI On iron supplements request for abdominal ultrasound Trend LFTs Seen and discussed with Dr. Nguyễn.
--- NOTE | 2018-01-22 20:57 | PN ---
DATE: 01/22/2018 SUBJECTIVE: The patient is in bed, in no acute distress, nontoxic. The patient was seen earlier. PHYSICAL EXAMINATION: VITAL SIGNS: Temperature is 98, blood pressure is 120/70, respiratory rate 16. HEENT: Unremarkable. NECK: Supple. LUNGS: Have decreased breath sounds. HEART: Normal S1, S2. ABDOMEN: Soft. LABORATORY EXAMINATION: Reveals a white count of 12,000, hemoglobin of 9, platelets of 440 and white count of 12,000. Chemistries reveals the BUN of 29, creatinine of 4. Urinalysis is noted and microbiology reveals the blood cultures are no growth. Review of the orders reveals the patient to be off of antibiotics. ASSESSMENT AND PLAN: A 77-year-old male who was seen early this morning in room 564, bed 1 with a right first toe gangrene. No evidence of active infection. The patient with peripheral vascular disease, necrotic toes and ulcerative bilaterally, revascularization, healthcare-associated pneumonia bilaterally. Clinically improving acute encephalopathy, etiology unknown and hypertensive, currently off of antibiotics. The patient is at risk for developing nosocomial infections. Popeye Barber MD
[2018-01-23] MEDS: Pantoprazole 40 mg EC Tab PO SCH (05:15)
--- NOTE | 2018-01-23 05:42 | PN ---
DATE: 01/22/2018 SUBJECTIVE: The patient was seen and examined at the bedside. Was hungry, waiting for the food. Food was in the bedside, but cannot eat because he was going for ultrasound. Otherwise no new complaints overnight. It hard for the patient to walk, anxious to go home. No nausea or vomiting. No headache or dizziness. No chest pain or palpitations. PHYSICAL EXAMINATION: VITAL SIGNS: Temperature 98.2, pulse 83, respiratory rate 18, blood pressure 130/80, pulse oximetry 98. HEENT: Head is normocephalic and atraumatic. Eyes; PERRLA. Extraocular muscles are intact. Conjunctivae are clear. Nose is patent. Mucous membranes are moist. NECK: Supple. No carotid bruit. No JVD or thyromegaly. CHEST: Bilaterally symmetrical. HEART: S1 and S2 positive. LUNGS: Clear to auscultation. ABDOMEN: Soft. Bowel sounds present. No organomegaly. EXTREMITIES: No edema. No cyanosis. NEUROLOGICAL: The patient is awake and alert. Moving all four extremities. No focal deficits. MEDICATIONS: Tylenol, Norvasc, Lipitor, vitamin B12, Aranesp, iron, NS, Lopressor, and Protonix. LABORATORY DATA: White blood cells 12, hemoglobin 9.4, hematocrit 30, and platelets 440. Sodium 138, potassium 3.5, BUN 29, creatinine 4.0, glucose 102. ASSESSMENT AND PLAN: Mr. Geovanna Guerra is a 77-year-old male with leukocytosis, anemia, hypokalemia, renal insufficiency, has anemia of chronic disease, 2 units of packed RBCs, status post endoscopy, found to have esophageal ulcers, antral ulcers, and duodenal ulcers. No active bleeding. Status post colonoscopy found to have colon polyp, diverticulosis, but no sign of active bleeding. Poor appetite, acute renal failure on chronic renal failure. I think the patient's anemia is due to renal insufficiency, multifactorial. Hepatitis panel done on 12/31/2017 was negative. The patient had also MRI of the lower extremity on 01/14/2018, negative of osteomyelitis. cholelithiasis. Diet as tolerated. Encourage oral intake and dietary supplement. Continue PPI, iron supplement. Liver function test is trending down. The patient went for abdominal ultrasound, results are pending. Seen by Dr. Sharpe, bicycle i assembler; Dr. Barber, Infectious Disease; and Dr. Alcaraz, aluminum siding installer. Gastrointestinal and deep venous thrombosis prophylaxis. Repeat labs. Appreciate aluminum siding installer input. We will follow up. Shivani Walters MD [facility]
[2018-01-23 06:48] LABS: BASO # 0.05 K/mm3 (0.0-2.0); BASO % 0.4 % (0.0-3.0); EOS # 0.7 (0.0-0.7); EOS % 5.5 % (1.5-5.0); GRAN # 7.65 (1.4-6.5); HEMOGLOBIN 9.8 g/dL (14.0-18.0); LYMPH # 2.2 (1.2-3.4); LYMPH % 18.4 % (22.0-35.0); MEAN CELL VOLUME 88.4 fl (80.0-105.0); MEAN CORPUSCULAR HEMOGLOBIN 28.3 pg (25.0-35.0); MEAN PLATELET VOLUME 9.6 fl (7.0-11.0); MONO # 1.5 (0.1-0.6); MONO % 12.7 % (1.0-6.0); RBC 3.46 10^6/uL (3.5-6.1); RED CELL DISTRIBUTION WIDTH 14.7 % (11.5-14.5); WHITE BLOOD COUNT 12.1 10^3/ul (4.5-11.0)
[2018-01-23 07:27] LABS: ALB/GLOB RATIO 0.9 (1.1-1.8); ALBUMIN 3.1 g/dL (3.0-4.8)
[2018-01-23 09:04] VITALS: RESP 18; TEMP 97.9; O2SAT 98
--- NOTE | 2018-01-23 09:30 | US ---
HISTORY: elevated alk phos COMPARISON: None. TECHNIQUE: Sonographic evaluation of the abdomen. FINDINGS: LIVER: Measures 13.1 cm. Hepatopedal blood flow. Fatty infiltration manifest ultrasonographically as increased echogenicity of the liver parenchyma. No mass. No intrahepatic bile duct dilatation. GALLBLADDER: Unremarkable. No gallstones. COMMON BILE DUCT: Measures 7.4 mm. No stones. No dilatation. PANCREAS: Unremarkable as visualized. No mass. No ductal dilatation. Portions of the pancreatic body and adjacent talar obscured by overlying bowel gas RIGHT KIDNEY: Measures 4.1 x 9.2cm. Normal echogenicity. No calculus, mass, or hydronephrosis. LEFT KIDNEY: Measures 4.7 x 9.0cm. Normal echogenicity. No calculus, mass, or hydronephrosis. SPLEEN: Normal in size and contour. No mass. AORTA: No aneurysmal dilatation. IVC: Unremarkable. OTHER FINDINGS: Trace ascites identified interposed between the liver and diaphragm. IMPRESSION: Mild hepatic steatosis, otherwise unremarkable study.
[2018-01-23] MEDS ORDERED: Darbepoetin Alfa 100 mcg/ml Inj SC SCH ×2 (10:00)
[2018-01-23 10:06] VITALS: BP 154/88; PULSE 85
--- NOTE | 2018-01-23 11:21 | CP.PCM.PN ---
Subjective - Date & Time of Evaluation Date of Evaluation: 01/23/18 Time of Evaluation: 09:00 - Subjective Subjective: GI Progress note. Dr. Bernard Pt seen and examined at bedside. No acute events overnight. Tolerating diet. Denies N/V/D. No abd pain. Denies any episodes of bleeding. No new complaints. Objective - Vital Signs/Intake and Output Vital Signs (last 24 hours): Temp Pulse Resp BP Pulse Ox 97.9 F 85 18 154/88 H 98 01/23/18 06:00 01/23/18 09:51 01/23/18 06:00 01/23/18 09:51 01/23/18 06:00 Intake and Output: 01/23/18 01/23/18 06:59 18:59 Intake Total 960 Output Total 700 Balance 260 - Medications Medications: Current Medications Acetaminophen (Tylenol 325mg Tab) 650 mg PO Q6H PRN PRN Reason: Pain, severe (8-10) Last Admin: 01/23/18 05:15 Dose: 650 mg Amlodipine Besylate (Norvasc) 10 mg PO DAILY [facility] Last Admin: 01/23/18 09:51 Dose: 10 mg Atorvastatin Calcium (Lipitor) 20 mg PO DIN [facility] Last Admin: 01/22/18 18:46 Dose: 20 mg Cyanocobalamin (Vitamin B12 1000 Mcg/Ml Inj) 1,000 mcg IM DAILY [facility] Last Admin: 01/23/18 09:54 Dose: 1,000 mcg Darbepoetin Matt (Aranesp) 100 mcg SC DAILY [facility] Stop: 01/25/18 10:01 Last Admin: 01/23/18 09:53 Dose: 100 mcg Iron Sucrose 100 mg/ Sodium (Chloride) 105 mls @ 210 mls/hr IVPB DAILY [facility] Last Admin: 01/23/18 09:50 Dose: 210 mls/hr Metoprolol Tartrate (Lopressor) 25 mg PO BID [facility] Last Admin: 01/23/18 09:51 Dose: 25 mg Pantoprazole Sodium (Protonix Ec Tab) 40 mg PO 0600,1600 [facility] Last Admin: 01/23/18 05:15 Dose: 40 mg - Labs Labs: 01/23/18 06:00 01/23/18 06:00 PT 10.7 SECONDS (9.4-12.5) 04/16/18 22:31 INR 0.94 (0.93-1.08) 01/12/18 22:31 APTT 29.8 Seconds (25.1-36.5) 01/12/18 22:31 - Constitutional Appears: Well, Non-toxic, No Acute Distress - Head Exam Head Exam: ATRAUMATIC, NORMAL INSPECTION, NORMOCEPHALIC - Eye Exam Eye Exam: EOMI - ENT Exam ENT Exam: Mucous Membranes Moist - Respiratory Exam Respiratory Exam: NORMAL BREATHING PATTERN. absent: Accessory Muscle Use, Respiratory Distress - Cardiovascular Exam Cardiovascular Exam: absent: JVD - GI/Abdominal Exam GI & Abdominal Exam: Soft. absent: Distended, Firm, Guarding, Tenderness, Rebound - Extremities Exam Extremities Exam: absent: Calf Tenderness - Neurological Exam Neurological Exam: Alert, Awake, Oriented x3 Assessment and Plan - Assessment and Plan (Free Text) Assessment: 77yo M with Anemia of Chronic Disease, osteomyelitis. - s/p EGD: Esophageal Ulcers/Antral Ulcers/Duodenal Ulcers; no active bleeding - s/p Colonoscopy: Diverticulosis, colonic polyp; No active bleeding - Abd US - no acute biliary disease Plan: - Diet as tolerated - Cont PPI - Trend LFTs Further recs as per Dr. Joana Harden PGY1
--- NOTE | 2018-01-23 11:57 | PN ---
DATE: 01/23/2018 SUBJECTIVE: The patient has no complaints of any chest pain or shortness of breath. No headaches or dizziness. PHYSICAL EXAMINATION VITAL SIGNS: Temperature is 98.2, pulse is 58, blood pressure is 118/73, respirations 20. GENERAL: The patient is lying in bed, flat, comfortable. HEENT: No oral lesion. Anicteric sclerae. Moist mucosa. NECK: No JVD, adenopathy, or thyromegaly. CARDIOVASCULAR: S1 and S2, regular. No murmurs, rubs, or gallops. LUNGS: Clear to auscultation bilaterally. No wheeze, rales, or rhonchi. ABDOMEN: Bowel sounds are positive, soft, nontender and nondistended. EXTREMITIES: no cyanosis, clubbing or edema. LABORATORY DATA: White count of 12.1, hemoglobin 9.8, creatinine is 3.7. ASSESSMENT: 1. Acute kidney injury with chronic kidney disease stage IV, improving. 2. Peripheral arterial disease. 3. Hypertension. 4. History of esophageal ulcers and duodenal ulcers. 5. Anemia of chronic iron deficiency. PLAN: The patient's creatinine continues to improve. The patient's creatinine is 3.7 at this point. The patient is getting close to his baseline, which is about 3.2 to 3.4. He is currently on IV fluids. I will discontinue the patient's IV fluids at this time, so he does not become volume overloaded. He is receiving iron sucrose for his iron deficiency. He is on Lipitor for dyslipidemia. He is on Norvasc for his hypertension. The patient's iron saturation is 14%. I will also add Ferritin. He is on Protonix daily. He is on heart-healthy diet. Erickson Alcaraz MD
--- NOTE | 2018-01-23 13:08 | CP.PCM.PN ---
<Ceferino Ocasiogiusepperandall - Last Filed: 01/23/18 13:05> Subjective - Date & Time of Evaluation Date of Evaluation: 01/23/18 Time of Evaluation: 13:05 - Subjective Subjective: Podiatry progress note: Dr. Irvin/Dr. Pollard 77 year old male patient seen and evaluated for bilateral foot ischemia with right 1st, 4th, and 5th digit gangrene. Patient resting comfortably at time of visit, NAD. Patient is AAOx3. Reports that he maybe going to the [facility] today. Reports of constant pain to his right foot but gets worst when someone touches it. Patient does not like to wear the multipodus boots. Denies N/V/F/D/C/SOB/CP/ ARANDA/dizziness. Offers no other complaints. Objective - Vital Signs/Intake and Output Vital Signs (last 24 hours): Temp Pulse Resp BP Pulse Ox 97.9 F 85 18 154/88 H 98 01/23/18 06:00 01/23/18 09:51 01/23/18 06:00 01/23/18 09:51 01/23/18 06:00 Intake and Output: 01/23/18 01/23/18 06:59 18:59 Intake Total 960 Output Total 700 Balance 260 - Medications Medications: Current Medications Acetaminophen (Tylenol 325mg Tab) 650 mg PO Q6H PRN PRN Reason: Pain, severe (8-10) Last Admin: 01/23/18 05:15 Dose: 650 mg Amlodipine Besylate (Norvasc) 10 mg PO DAILY [facility] Last Admin: 01/23/18 09:51 Dose: 10 mg Atorvastatin Calcium (Lipitor) 20 mg PO DIN [facility] Last Admin: 01/22/18 18:46 Dose: 20 mg Cyanocobalamin (Vitamin B12 1000 Mcg/Ml Inj) 1,000 mcg IM DAILY [facility] Last Admin: 01/23/18 09:54 Dose: 1,000 mcg Darbepoetin Matt (Aranesp) 100 mcg SC DAILY [facility] Stop: 01/25/18 10:01 Last Admin: 01/23/18 09:53 Dose: 100 mcg Iron Sucrose 100 mg/ Sodium (Chloride) 105 mls @ 210 mls/hr IVPB DAILY [facility] Last Admin: 01/23/18 09:50 Dose: 210 mls/hr Metoprolol Tartrate (Lopressor) 25 mg PO BID [facility] Last Admin: 01/23/18 09:51 Dose: 25 mg Pantoprazole Sodium (Protonix Ec Tab) 40 mg PO 0600,1600 [facility] Last Admin: 01/23/18 05:15 Dose: 40 mg - Labs Labs: 01/23/18 06:00 01/23/18 06:00 PT 10.7 SECONDS (9.4-12.5) 01/12/18 22:31 INR 0.94 (0.93-1.08) 01/12/18 22:31 APTT 29.8 Seconds (25.1-36.5) 01/12/18 22:31 - Constitutional Appears: Well, Non-toxic, No Acute Distress - Extremities Exam Additional comments: Bilateral LE focused exam Vasc: DP and PT faintly palpable, temperature gradient cool to cool, no edema noted to the LE, CFT delayed to the digits Derm: right hallux wound with demarcated dry eschar at distal medial tuft; 4th and 5th toes with dry demarcated eschars at distal rojelio, no fluctanance, no abscess, no clinical signs of infection, left foot digit 3 and 4 appear hyperpigmented with no open lesions, no clinical suspicion of active infection Neuro: gross and protective sensation intact Ortho: severe pain noted with light palpation to the right hallux and generalized forefoot, mild pain on the left forefoot, patient unable to MM secondary to guarding. - Neurological Exam Neurological Exam: Alert, Awake, Oriented x3 - Psychiatric Exam Psychiatric exam: Normal Affect, Normal Mood Assessment and Plan - Assessment and Plan (Free Text) Assessment: 77 year old male with right foot ischemia and gangrenous changes to 1st, 4th, 5th digits secondary to PVD Plan: Patient examined and evaluated Discussed plan with attending Dr. Pollard Afebrile; WBC 12.1 From previous admission: Vascular- no additional vascular intervention during this time Duplex RLE arterial US- Normal velocities are noted in the right SFA. No significant stenoses were noted IMPRESSION: Patent right external iliac stent and SFA R CAMILA IMPRESSION: 1. Borderline abnormal right CAMILA. Improved from previous study 2. Left SFA and tibial disease No podiatric surgical intervention at this time Continue local wound care - xeroform, DSD to right hallux and 5th digit; A&D ointment to bilateral LE Multipodus boots must be worn at all times while in bed; patient refusing despite education Patient will benefit to a long-term facility for physical therapy Podiatry will continue to follow <Jason Pollard - Last Filed: 01/23/18 14:44> Objective - Vital Signs/Intake and Output Vital Signs (last 24 hours): Temp Pulse Resp BP Pulse Ox 97.9 F 85 18 154/88 H 98 01/23/18 06:00 01/23/18 09:51 01/23/18 06:00 01/23/18 09:51 01/23/18 06:00 Intake and Output: 01/23/18 01/23/18 06:59 18:59 Intake Total 960 Output Total 700 Balance 260 - Medications Medications: Current Medications Acetaminophen (Tylenol 325mg Tab) 650 mg PO Q6H PRN PRN Reason: Pain, severe (8-10) Last Admin: 01/23/18 05:15 Dose: 650 mg Amlodipine Besylate (Norvasc) 10 mg PO DAILY [facility] Last Admin: 01/23/18 09:51 Dose: 10 mg Atorvastatin Calcium (Lipitor) 20 mg PO DIN [facility] Last Admin: 01/22/18 18:46 Dose: 20 mg Cyanocobalamin (Vitamin B12 1000 Mcg/Ml Inj) 1,000 mcg IM DAILY [facility] Last Admin: 01/23/18 09:54 Dose: 1,000 mcg Darbepoetin Matt (Aranesp) 100 mcg SC DAILY [facility] Stop: 01/25/18 10:01 Last Admin: 01/23/18 09:53 Dose: 100 mcg Iron Sucrose 100 mg/ Sodium (Chloride) 105 mls @ 210 mls/hr IVPB DAILY [facility] Last Admin: 01/23/18 09:50 Dose: 210 mls/hr Metoprolol Tartrate (Lopressor) 25 mg PO BID [facility] Last Admin: 01/23/18 09:51 Dose: 25 mg Pantoprazole Sodium (Protonix Ec Tab) 40 mg PO 0600,1600 [facility] Last Admin: 01/23/18 05:15 Dose: 40 mg - Labs Labs: 01/23/18 06:00 01/23/18 06:00 PT 10.7 SECONDS (9.4-12.5) 01/12/18 22:31 INR 0.94 (0.93-1.08) 01/12/18 22:31 APTT 29.8 Seconds (25.1-36.5) 01/12/18 22:31 Attending/Attestation - Attestation I have personally seen and examined this patient.: Yes I have fully participated in the care of the patient.: Yes I have reviewed all pertinent clinical information, including history, physical exam and plan: Yes
[2018-01-23] MEDS ORDERED: Potassium Chloride 20 mEq ER Tab PO ONE (14:35)
--- NOTE | 2018-01-23 15:59 | PN ---
DATE: 01/23/2018 LOCATION: Patient is in room 564, bed 1. REASON FOR CONSULTATION AND FOLLOWUP: Cardiac evaluation, preop evaluation for colonoscopy, renal failure, mild tricuspid regurgitation, moderate pulmonary hypertension, RVSP 50 mmHg, peripheral vascular disease status post drug-eluting stent insertion by Dr. Rolle, anemia. SUBJECTIVE: The patient lying in bed flat without any chest pain, shortness of breath, or palpitations. PHYSICAL EXAMINATION: VITAL SIGNS: Blood pressure 151/92, yesterday blood pressure was 118/73; respirations 18; pulse 67; and temperature 97.9. HEENT: Head is normocephalic. Eyes: Pupils normal. Conjunctivae slightly pale. NECK: JVP low. Carotids equal. THORAX: AP diameter normal. LUNGS: No significant rales. CARDIOVASCULAR: S1 and S2. ABDOMEN: Soft. Bowel sounds normal. EXTREMITIES: No clubbing. No cyanosis. No edema on legs. LABORATORY DATA: WBC 12.1, hemoglobin 9.8, hematocrit 30.6, and platelets 441. Sodium 139, potassium 3.5. BUN 23, creatinine 3.7. Glucose 105. AST 33, ALT 18. Total protein 6.4, albumin 3.1. DIAGNOSES: Acute on chronic kidney disease, gastrointestinal bleeding, colon polyps, status post polypectomy, diverticulosis, anemia, hypokalemia, obesity. The patient had colonoscopy, in which sigmoid colon polyp was removed. The patient also showed diverticulosis. Echo on 11/10/2017, showed normal LV ejection fraction of 61%. The patient's hemoglobin on admission was 6.5, now it is 9.8. PLAN: The patient getting atorvastatin 20 daily, metoprolol 25 b.i.d., amlodipine 10 mg daily, iron sucrose 100 mg IV daily. We will continue present therapy. We will follow. Jt Sharpe MD
--- NOTE | 2018-01-23 17:19 | PN ---
DATE: 01/23/2018 This is [facility]'s hospital visit on the medical floor. For Dr. Knight. SUBJECTIVE: The patient is a 77-year-old male, seen sitting up in bed, reportedly to be transferred to rehab later today with the patient now reporting that he has little discomfort of the right foot, right mid abdomen off and on, otherwise without complaint today. It should be noted that the patient was admitted with a hemoglobin of 6.5. After 2 units of packed red blood cells, the hemoglobin is now at 9.8 with the patient known to have had testing done with his esophageal and duodenal ulcers probably responsible for his bleed. GI bleed suspected. He also has a right foot ulcer, which is being followed by Podiatry. Otherwise, he is in no acute distress. OBJECTIVE PHYSICAL EXAMINATION: VITAL SIGNS: Temperature 97.9, pulse 85, respirations 18, blood pressure 154/88, pulse ox 98%. HEENT: Unremarkable. NECK: Supple. HEART: Regular rate. LUNGS: Clear. ABDOMEN: Soft, nontender. EXTREMITIES: With right foot ischemia with first, fourth and fifth digits noted to be gangrenous. Being followed by Podiatry. NEUROLOGIC: Awake and alert with discomfort to the right foot. SKIN: Otherwise warm, dry and clear except as above. LABORATORY DATA: The patient's labs were done today. White blood cell count of 12.1, hemoglobin 9.8, hematocrit 30.6, platelet count of 441,000. The chem metabolic panel showing a potassium of 3.5, BUN of 23, creatinine of 3.7 with a alk phos 133, otherwise normal chem metabolic panel. The patient did have an abdominal ultrasound done yesterday. It showed mild hepatic steatosis, otherwise unremarkable study. ASSESSMENT: The assessment for this patient is that of gastrointestinal bleed with anemia, status post transfusion of 2 units of packed cells; peptic ulcer disease with renal insufficiency; chronic kidney disease?; gangrene of the toes; hepatic steatosis; hypertension. PLAN: The plan for this patient after conversation with Dr. Knight is to continue his present medical regimen with followup as an outpatient after discharge from [facility] as indicated. This is a complex patient with a comprehensive medically necessary and appropriate visit carried out in excess of 20 minutes [id number] time with the patient. Johnson MD [facility] # [id number]
== END 2018-01-23 17:25 | DRG 377 ==
LOC: ED 20:00 → ERH 01-13 02:36 → 2RNO 01-13 04:58 → 5RNO 01-19 23:15
PROVIDERS: ADMIT Student in an Organized Health Care Education/Training Program; ATTEND Internal Medicine
PROC: 30233N1 Transfusion of Nonautologous Red Blood Cells into Peripheral Vein, Percutaneous Approach (ICD-10-PCS; 2018-01-13)
PROC: 0DB68ZX Excision of Stomach, Via Natural or Artificial Opening Endoscopic, Diagnostic (ICD-10-PCS; principal; 2018-01-14 13:00)
PROC: 0DBN8ZX Excision of Sigmoid Colon, Via Natural or Artificial Opening Endoscopic, Diagnostic (ICD-10-PCS; 2018-01-20)
DX: K26.4 Chronic or unspecified duodenal ulcer with hemorrhage (principal); G93.40 Encephalopathy, unspecified; K22.10 Ulcer of esophagus without bleeding; N17.9 Acute kidney failure, unspecified; N18.4 Chronic kidney disease, stage 4 (severe); I13.0 Hypertensive heart and chronic kidney disease with heart failure and stage 1 through stage 4 chronic kidney disease, or unspecified chronic kidney disease; L03.115 Cellulitis of right lower limb; K25.9 Gastric ulcer, unspecified as acute or chronic, without hemorrhage or perforation; D12.5 Benign neoplasm of sigmoid colon; I73.9 Peripheral vascular disease, unspecified; I50.9 Heart failure, unspecified; E87.6 Hypokalemia; D50.9 Iron deficiency anemia, unspecified; L97.519 Non-pressure chronic ulcer of other part of right foot with unspecified severity; E78.5 Hyperlipidemia, unspecified; L03.031 Cellulitis of right toe; D63.8 Anemia in other chronic diseases classified elsewhere; K57.30 Diverticulosis of large intestine without perforation or abscess without bleeding; I25.10 Atherosclerotic heart disease of native coronary artery without angina pectoris; K64.8 Other hemorrhoids; F17.210 Nicotine dependence, cigarettes, uncomplicated; I08.1 Rheumatic disorders of both mitral and tricuspid valves; K76.0 Fatty (change of) liver, not elsewhere classified; Z96.641 Presence of right artificial hip joint; Z95.820 Peripheral vascular angioplasty status with implants and grafts

== ENCOUNTER 2018-02-21 03:08 | Inpatient (IN) | payer MEDICARE, OTHER ==
--- NOTE | 2018-02-21 03:51 | ED PDOC ---
Arrival/HPI - General Chief Complaint: Abnormal Labs Time Seen by Provider: 02/21/18 03:15 Historian: Patient, [facility] - History of Present Illness Narrative History of Present Illness (Text): 02/21/18 04:01 77 year old male, whose past medical history includes Hypertension, CKD stage 4 and anemia, presents to the emergency department sent by snf for abnormal lab results. Patient's lab work resulted in low hemoglobin and elevated creatinine. Patient reports feeling weak, but denies any fever, chills , chest pain, shortness of breath, abdominal pain, nausea, vomiting, diarrhea, blood in stool, dark stool, urinary symptoms, back pain, neck pain, headache, dizziness, or any other complaints. PMD: Dr. Walters Symptom Onset: Gradual Symptom Course: Unchanged Activities at Onset: Light Context: Home ([facility]) Past Medical History - Provider Review Nursing Documentation Reviewed: Yes - Infectious Disease Hx of Infectious Diseases: None - Cardiac Hx Hypertension: Yes - Pulmonary Hx Respiratory Disorders: No - Neurological Hx Neurological Disorder: No - HEENT Hx HEENT Disorder: No - Renal Hx Renal Disorder: Yes - Endocrine/Metabolic Hx Endocrine Disorders: No - Hematological/Oncological Hx Blood Transfusions: Yes Hx Blood Transfusion Reaction: No - Integumentary Hx Dermatological Disorder: No - Musculoskeletal/Rheumatological Hx Musculoskeletal Disorders: No Hx Falls: No - Gastrointestinal Hx Gastrointestinal Disorders: No - Genitourinary/Gynecological Hx Genitourinary Disorders: No - Psychiatric Hx Psychophysiologic Disorder: No Hx Substance Use: No - Past Surgical History Past Surgical History: No Previous - Anesthesia Hx Anesthesia Reactions: No Hx Malignant Hyperthermia: No - Suicidal Assessment Feels Threatened In Home Enviroment: No Family/Social History - Physician Review Nursing Documentation Reviewed: Yes Family/Social History: No Known Family HX Smoking Status: Current Some Days Smoker Hx Alcohol Use: No Hx Substance Use: No Hx Substance Use Treatment: No Allergies/Home Meds Allergies/Adverse Reactions: Allergies No Known Allergies Allergy (Verified 12/25/17 21:36) Home Medications: Home Meds Medication Instructions Recorded Confirmed Iron Sucrose [Venofer] 100 mg IV QWK 02/21/18 02/21/18 Review of Systems - Physician Review All systems were reviewed & negative as marked: Yes - Review of Systems Constitutional: absent: Fevers, Other (Chills) Respiratory: absent: SOB Cardiovascular: absent: Chest Pain Gastrointestinal: absent: Abdominal Pain, Diarrhea, Nausea, Vomiting, Hematochezia, Other (Melena) Genitourinary Male: absent: Dysuria, Frequency, Hematuria Musculoskeletal: absent: Back Pain, Neck Pain Neurological: Other (Feeling weak). absent: Headache, Dizziness Physical Exam Vital Signs Reviewed: Yes Vital Signs Temp Pulse Resp BP Pulse Ox 02/21/18 05:20 79 14 149/69 99 02/21/18 03:19 97.5 F L 79 18 171/95 H 99 Temperature: Afebrile Blood Pressure: Hypertensive Pulse: Regular Respiratory Rate: Normal Appearance: Positive for: Well-Appearing, Non-Toxic, Other (Thin) Pain Distress: None Mental Status: Positive for: Alert and Oriented X 3 - Systems Exam Head: Present: Atraumatic, Normocephalic Pupils: Present: PERRL Extroacular Muscles: Present: EOMI Conjunctiva: Present: Normal Mouth: Present: Moist Mucous Membranes Neck: Present: Normal Range of Motion Respiratory/Chest: Present: Clear to Auscultation, Good Air Exchange. No: Respiratory Distress, Accessory Muscle Use Cardiovascular: Present: Regular Rate and Rhythm, Normal S1, S2. No: Murmurs Abdomen: No: Tenderness, Distention, Peritoneal Signs Back: Present: Normal Inspection Upper Extremity: Present: Normal Inspection. No: Cyanosis, Edema Lower Extremity: Present: Normal Inspection. No: Edema Neurological: Present: GCS=15, CN II-XII Intact, Speech Normal Skin: Present: Warm, Dry, Pale. No: Rashes Psychiatric: Present: Alert, Oriented x 3, Normal Insight, Normal Concentration Medical Decision Making ED Course and Treatment: 02/21/18 04:01 Impression: 77 year old male presents for elevated creatinine and low hemoglobin. Patient is complaining of feeling weak. Plan: -- Labs -- EKG -- Reassess and disposition Prior Visits: Notes and results from previous visits were reviewed. On 01/13/18 patient came in complaining of low hemoglobin and chronic right foot pain.. Patient was admitted. Progress Notes: EKG: Ordered, reviewed, and independently interpreted the EKG. Rate : 74 BPM Rhythm : NSR Interpretation : LAD, PACs and PVCs. Bifascicular block. Comparison : No previous EKG for comparison. 02/21/18 05:[address] Walters who is aware and agrees with the plan. Accepts patient into her service. Request 1 unit of blood to be transfused. Also request Dr. Holder for consult. - Lab Interpretations Lab Results: 02/21/18 03:38 02/21/18 03:38 Lab Results 02/21/18 04:30: Blood Type B POSITIVE, Antibody Screen Negative, Crossmatch See Detail, BBK History Checked Patient has bt 02/21/18 03:38: Sodium 136, Potassium 3.2 L, Chloride 99, Carbon Dioxide 20 L, Anion Gap 20, BUN 107 H, Creatinine 5.5 H, Est GFR ( Amer) 12, Est GFR ( Non-Af Amer) 10, Random Glucose 101, Calcium 7.7 L, Total Bilirubin 0.6, AST 17 D, ALT 27, Alkaline Phosphatase 161 H D, Troponin I 0.10, Total Protein 6.6, Albumin 3.2, Globulin 3.4, Albumin/Globulin Ratio 1.0 L 02/21/18 03:38: WBC 12.4 H, RBC 2.85 L, Hgb 7.9 L, Hct 24.0 L, MCV 84.2 D, MCH 27.7, MCHC 32.9, RDW 15.8 H, Plt Count 327, MPV 10.1, Gran % 72.0 H, Lymph % ( Auto) 11.9 L, Wilson % (Auto) 14.8 H, Eos % (Auto) 1.1 L, Baso % (Auto) 0.2, Gran # 8.92 H, Lymph # (Auto) 1.5, Wilson # (Auto) 1.8 H, Eos # (Auto) 0.1, Baso # ( Auto) 0.03 I have reviewed the lab results: Yes - EKG Interpretation Interpreted by ED Physician: Yes Type: 12 lead EKG - Medication Orders Current Medication Orders: Discontinued Medications Potassium Chloride (K-Dur 20 Meq Er Tab) 20 meq PO STAT STA Stop: 02/21/18 05:32 Last Admin: 02/21/18 05:47 Dose: 20 meq - Scribe Statement The provider has reviewed the documentation as recorded by the Willian Acosta Provider Scribe Attestation: All medical record entries made by the Shakilaiblex were at my direction and personally dictated by me. I have reviewed the chart and agree that the record accurately reflects my personal performance of the history, physical exam, medical decision making, and the department course for this patient. I have also personally directed, reviewed, and agree with the discharge instructions and disposition. Disposition/Present on Arrival - Present on Arrival Any Indicators Present on Arrival: No History of DVT/PE: No History of Uncontrolled Diabetes: No Urinary Catheter: No History of Decub. Ulcer: No History Surgical Site Infection Following: None - Disposition Have Diagnosis and Disposition been Completed?: Yes Diagnosis: Renal failure, Anemia Disposition: HOSPITALIZED Disposition Time: 05:10 Condition: FAIR
[2018-02-21 04:03] LABS: BASO # 0.03 K/mm3 (0.0-2.0); BASO % 0.2 % (0.0-3.0); EOS # 0.1 (0.0-0.7); EOS % 1.1 % (1.5-5.0); GRAN # 8.92 (1.4-6.5); LYMPH # 1.5 (1.2-3.4); LYMPH % 11.9 % (22.0-35.0); MEAN CELL VOLUME 84.2 fl (80.0-105.0); MEAN CORPUSCULAR HEMOGLOBIN 27.7 pg (25.0-35.0); MEAN CORPUSCULAR HGB CONC 32.9 g/dl (31.0-37.0); MEAN PLATELET VOLUME 10.1 fl (7.0-11.0); MONO # 1.8 (0.1-0.6); MONO % 14.8 % (1.0-6.0); RBC 2.85 10^6/uL (3.5-6.1); RED CELL DISTRIBUTION WIDTH 15.8 % (11.5-14.5); WHITE BLOOD COUNT 12.4 10^3/ul (4.5-11.0)
[2018-02-21 04:08] LABS: HEMOGLOBIN 7.9 g/dL (14.0-18.0)
[2018-02-21 04:11] LABS: TROPONIN I 0.1 ng/mL
[2018-02-21 05:02] LABS: ALBUMIN 3.2 g/dL (3.0-4.8); CALCIUM 7.7 mg/dL (8.4-10.5)
[2018-02-21] MEDS ORDERED: Potassium Chloride 20 mEq ER Tab PO STA (05:31)
[2018-02-21 09:48] VITALS: BMI 14.9
[2018-02-21] MEDS: Potassium Chloride 20 MEQ in Sodium Chloride 0.45% 1,000 ML IV SCH (10:57)
--- NOTE | 2018-02-21 12:31 | CARD ---
APPROVED REPORT EKG Measurement Heart [id number] 136P [id number] <Conclusion> Sinus rhythm with occasional premature ventricular complexes and premature atrial complexes Right bundle branch block Left anterior fascicular block Bifascicular block T wave abnormality, consider inferolateral ischemia LVH.
--- NOTE | 2018-02-21 12:41 | US ---
PROCEDURE: Ultrasound of the Kidneys HISTORY: ARF CKD 4, R SANNA, R/O hydro, Check for CMRD COMPARISON: Comparison made with prior abdominal ultrasound 01/22/2018 TECHNIQUE: Sonogram of the kidneys. FINDINGS: RIGHT KIDNEY: Measures: 8.1 x 4.0 x 4.9 cm. Diffusely echogenic kidneys consistent chronic renal disease No stone, solid mass lesion or hydronephrosis visualized. There is a cyst seen lower pole right kidney measuring approximately 2 cm in greatest dimension LEFT KIDNEY: Measures: 9.0 x 4.8 x 4.2 cm. Diffusely echogenic kidneys consistent with chronic renal disease No stone, solid mass lesion or hydronephrosis visualized. There is a cyst seen upper pole right kidney measuring approximate 1.6 cm in greatest dimension OTHER FINDINGS: None. IMPRESSION: The right kidney parenchyma is echogenic consistent with chronic renal disease. Bilateral renal cysts.
--- NOTE | 2018-02-21 18:30 | CON ---
DATE: 02/21/[address] Walters. REFERRING PHYSICIAN: Shivani Walters MD REASON FOR CONSULTATION: Evaluation of a patient known to me from previous evaluations, who presents with acute renal failure superimposed on chronic kidney disease and severe anemia. HISTORY OF PRESENT ILLNESS: Patient is a 77-year-old white male, long history of cigarette smoking, stopped in 09/2017; history of chronic kidney disease stage IV with a baseline creatinine in the low 3 range; history of right renal artery stenosis seen on a CT scan earlier this year. Patient has extensive peripheral vascular disease of his lower extremity status post angioplasty and stent placement, right lower extremity; history of hypertension; history of secondary hyperparathyroidism with low vitamin D levels; history of anemia in part secondary to chronic kidney disease; history of pulmonary hypertension; history of MR/TR; history of ejection fraction of 61%. Patient states he spent a large part of this year at [facility]. He presents to the emergency room with increased weakness, worsening anemia, and an elevated BUN and creatinine. Patient was seen together with his at bedside. PAST MEDICAL HISTORY: Significant for that of chronic kidney disease stage IV, history of right renal artery stenosis, history of severe peripheral vascular disease in part secondary to cigarette smoking, hypertension, secondary hyperparathyroidism, low vitamin D levels, anemia, pulmonary hypertension, and hyperlipidemia. MEDICATIONS AT HOME: Include that of Norvasc, Protonix, Lopressor, Venofer, Lipitor, and Tylenol p.r.n. ALLERGIES: NO KNOWN ALLERGIES TO MEDICATIONS. PRESENT MEDICATIONS IN HOSPITAL: Have not been started yet. SOCIAL HISTORY: Past history of cigarette smoking greater than 60 years. Patient and his state that he stopped smoking back in September prior to his last admission to the hospital at the time that we saw him back in October. No history of alcohol use. Patient is a vegetarian. It is not known whether he complies with the renal diet. FAMILY HISTORY: Negative and noncontributory. REVIEW OF SYSTEMS: GENERAL: Patient and his state that he has had continued weight loss secondary to decreased appetite. ENT: Denies any hearing or visual problems. PULMONARY: No shortness of breath, but patient is not active. No known history of COPD or asthma. No history of CHF. CARDIAC: History of mild valvular heart disease with ejection fraction of 61%. GI: No nausea, vomiting, diarrhea, constipation, or abdominal pain. : History of chronic kidney disease stage IV with a baseline creatinine in the low 3 range. ENDOCRINE: No history of diabetes, history of secondary hyperparathyroidism. MUSCULOSKELETAL: No complaints. NEURO: No past history of CVA, TIA, seizures, or syncope. HEME/ONC: Positive for anemia likely secondary to chronic kidney disease. No history of malignancy. PSYCHIATRIC: History is negative. PHYSICAL EXAMINATION: GENERAL: Patient is currently seen on 2R. He is lying comfortable supine in bed. His is at the bedside. VITAL SIGNS: Blood pressure 158/96, temperature 98.1, pulse of 67 with a respiratory rate of 18. HEENT: Show him to be normocephalic, atraumatic. Conjunctivae are pale. Sclerae are nonicteric. Pupils are equal and reactive to light and accommodation. Extraocular muscles are intact. Posterior pharynx is normal. NECK: Supple without neck vein distention or thyromegaly. No lymphadenopathy. No audible bruits. CHEST: Clear to auscultation and percussion with no rales, rhonchi, or wheezing. CARDIOVASCULAR: Shows a regular rate and rhythm with MR/TR. No S3, no S4, no rub. ABDOMEN: Soft. Bowel sounds normal. No rebound, guarding, or masses. EXTREMITIES: Show feet that are warm to touch. Significantly diminished lower extremity pulses bilaterally. No lower extremity edema. NEURO: Shows him to be alert and oriented x3 with no gross focal motor or sensory deficits noted. No asterixis noted. LABORATORY DATA AND IMAGING: Previous abdominal ultrasounds have shown smallish kidneys with cortical thinning and chronic medical renal disease. Renal artery Doppler study was unremarkable. A CT scan of the kidneys back in October showed a right renal artery stenosis. EKG on admission showed a normal sinus rhythm. Chest x-ray on admission had not been read as of present dictation. Labs: CBC: White blood cell count 12.4 with a hemoglobin of 7.9, his baseline hemoglobin has been in the 10 range. Platelet count is 327,000. Chemistries show a low potassium of 3.2, sodium 136. BUN elevated at 107, baseline BUN has been in the 30 range; creatinine is up to 5.5, baseline creatinine has been in the low 3 range. Calcium is 7.7. Last iron saturations in December were 14%. Hence, patient is receiving Venofer. Liver enzymes are normal, albumin level is 3.2. Vitamin D level back in October was nondetectable. PTH was elevated consistent with his diagnosis of secondary hyperparathyroidism. ASSESSMENT: 1. Acute renal failure superimposed on chronic kidney disease stage IV. This is likely in part volume related. It is also not clear to me whether patient is having any internal bleeding. We will obtain stool coags. We will obtain iron TIBC saturations and ferritin levels. Patient should be transfused up to a hemoglobin of 10. I will repeat a renal ultrasound to rule out any obstructive uropathy, but this is unlikely. Patient has known chronic medical renal disease, likely secondary to years of hypertension with perhaps a component from right renal artery stenosis. 2. History of hypertension. Blood pressure medication should be restarted. Patient will remain on beta-gi therapy and calcium channel gi therapy. There is no role here for ELOY inhibition or angiotensin receptor blockers in light of his renal artery stenosis. 3. History of severe peripheral vascular disease. This is likely secondary to years of cigarette smoking. This appears to be stable. 4. History of secondary hyperparathyroidism with vitamin D deficiency. We will repeat vitamin D levels. Patient should be started on binder therapy if phosphorus levels are elevated. He should continue a renal diet. Of note, patient is a vegetarian. 5. History of pulmonary hypertension. This appears to be stable. 6. Mitral regurgitation/tricuspid regurgitation. This appears to be stable. 7. Ejection fraction 61% which is adequate. 8. Mild hypokalemia. Check magnesium level and supplement potassium levels. PLAN: 1. Plan as outlined above. 2. No discussion with family about the possibility of renal replacement therapy should his kidney function continues to worsen. 3. Agree with transfusions. 4. Obtain iron levels, although this might be confusing to interpret in light of the fact that he had one blood transfusion. 5. Resume blood pressure medications. 6. Continue all dietary restrictions and decide on binder therapy. 7. Continue to monitor the patient on telemetry. 8. I expect his BUN and creatinine to drift back down to his baseline levels, baseline BUN is in the 30s with baseline creatinine in the low 3 range. Thank you for letting me partake and share in the care of your patient. Mendez Mack MD [facility] # [id number]
[2018-02-22] MEDS: Potassium Chloride 20 MEQ in Sodium Chloride 0.45% 1,000 ML IV SCH ×2 (00:15→03:26)
--- NOTE | 2018-02-22 01:40 | HP ---
CHIEF COMPLAINT: Fatigue, not feeling very well, abnormal labs. HISTORY OF PRESENT ILLNESS: Mr. Geovanna Guerra, 77-year-old male with multiple medical problems including hypertension, CKD stage IV, anemia. Came to the emergency department. The patient was actually getting rehab in [facility] and I received a call that his hemoglobin is very low. BUN and creatinine are very high and the patient is not eating well. Feeling very fatigued and tired, so we called the patient to [facility] emergency room. The patient reports feeling weak, but denies any fever, chills, chest pain, shortness of breath, abdominal pain, nausea, vomiting, diarrhea, blood in the stool, urinary symptoms, back pain, neck pain, headache, dizziness or any other complaints. PAST MEDICAL HISTORY: Hypertension, anemia, history of blood transfusion, renal insufficiency. FAMILY HISTORY: Father and mother noncontributory. HABITS: No alcohol. No substance abuse. Smoking, current some days smoker. ALLERGIES: THE PATIENT IS NOT ALLERGIC WITH ANY MEDICATIONS. MEDICATIONS: The patient do not remember exactly. REVIEW OF SYSTEMS: The patient is seen and examined at bedside in his room, getting monitoring on telemetry. Has no shortness of breath. No nausea or vomiting. Feeling fatigued and tired. No chest pain. No abdominal pain. No diarrhea. No hematuria or hematochezia. No dysuria, frequency. No back pain, neck pain. No headache. No dizziness. PHYSICAL EXAMINATION: VITAL SIGNS: Temperature 97.5, pulse 79, respiratory rate 18, blood pressure 149/69, pulse oximetry 99. HEENT: Head normocephalic, atraumatic. Eyes PERRLA. Extraocular muscles intact. Conjunctivae clear. Nose patent. Mucous membrane moist. NECK: Supple. No carotid bruit. No JVD or thyromegaly. CHEST: Bilaterally symmetrical. HEART: S1 and S2 positive. LUNGS: Clear to auscultation. ABDOMEN: Soft. Bowel sounds positive. No organomegaly. EXTREMITIES: No edema. No cyanosis. NEUROLOGICAL: The patient is awake and alert. Moving all 4 extremities. No focal deficits. LABORATORY DATA: White blood cells 12.4, hemoglobin 7.9, hematocrit 24, platelets 327. Sodium 136, potassium 3.2, BUN 107, creatinine 5.5, glucose 101. ASSESSMENT AND PLAN: Mr. Geovanna Guerra, 77-year-old male with leukocytosis; anemia, acute on chronic; hypokalemia; renal insufficiency. Now, admitted for renal failure. Renal ultrasound is done. Has right kidney parenchyma is echogenic consistent with chronic renal disease, bilateral renal cyst. We admitted the patient and labs ordered. Consult pumper gager, Dr. Holder and insurance healthcare representative. Gastrointestinal and deep venous thrombosis prophylaxis. Repeat labs. Discussion done with the patient. We will follow up. Shivani Walters MD
[2018-02-22] MEDS: Pantoprazole 40 mg EC Tab PO SCH ×2 (05:48→19:08)
[2018-02-22 06:41] LABS: HEMOGLOBIN 8.2 g/dL (14.0-18.0); MEAN CELL VOLUME 83.2 fl (80.0-105.0); MEAN CORPUSCULAR HEMOGLOBIN 27.5 pg (25.0-35.0); MEAN CORPUSCULAR HGB CONC 33.1 g/dl (31.0-37.0); MEAN PLATELET VOLUME 10.2 fl (7.0-11.0); RBC 2.98 10^6/uL (3.5-6.1); RED CELL DISTRIBUTION WIDTH 15.5 % (11.5-14.5); WHITE BLOOD COUNT 12.1 10^3/ul (4.5-11.0)
[2018-02-22 07:01] LABS: IRON 142 ug/dL (45-180)
[2018-02-22 07:11] LABS: % IRON SATURATION 79 % (20-55); TOTAL IRON BINDING CAPACITY 180 ug/dL (261-462)
[2018-02-22 07:18] LABS: ALB/GLOB RATIO 0.9 (1.1-1.8); ALBUMIN 2.7 g/dL (3.0-4.8); CALCIUM 7.3 mg/dL (8.4-10.5)
[2018-02-22] MEDS ORDERED: Potassium Chloride 40 mEq/30 ml LIQ UD PO ONE (11:10)
[2018-02-22 11:58] LABS: PH,URINE 5.5 (4.7-8.0); URINE BILIRUBIN NEGATIVE (NEGATIVE); URINE BLOOD SMALL (NEGATIVE); URINE COLOR YELLOW (YELLOW); URINE GLUCOSE (UA) NEGATIVE (NEGATIVE); URINE LEUKOCYTE ESTERASE NEGATIVE Leu/uL (NEGATIVE); URINE PROTEIN 100 mg/dL (<30 mg/dL); URINE UROBILINOGEN 0.2 E.U./dL (<1 E.U./dL)
[2018-02-22 11:59] LABS: URINE APPEARANCE CLEAR (CLEAR)
[2018-02-22 12:12] LABS: CREATININE,RANDOM URINE 61 mg/dL
[2018-02-22 12:24] LABS: URINE BACTERIA SMALL (NEG); URINE EPITHELIAL CELLS 0 - 2 /hpf (0-5); URINE RBC 0 - 2 /hpf (0-2); URINE WBC 0 - 2 /hpf (0-6)
[2018-02-22 13:22] LABS: FOLATE 3.7 ng/mL
--- NOTE | 2018-02-22 16:04 | PN ---
DATE: 02/22/2018 SUBJECTIVE: The patient is currently seen lying on Telemetry supine in bed. He is noncommunicative. His is not present at this time to answer any questions. MEDICATIONS: Medication list reviewed. The patient is on Lipitor, Lopressor, Norvasc, IV fluids with potassium, Protonix, IV iron and Tylenol. OBJECTIVE: INTAKE/OUTPUT: Intake is 2090, output is 200. VITAL SIGNS: Blood pressure 142/92, temperature 98, respiratory rate is 20 with a pulse of 66. HEENT: Exam shows him to be normocephalic, atraumatic. Eyes are closed. NECK: Supple. No neck vein distention. CHEST: Clear to auscultation and percussion. No rales, rhonchi or wheezing. CARDIOVASCULAR: Shows a regular rate and rhythm with MR/TR. No S3. No S4. No rub. ABDOMEN: Soft. Bowel sounds normal. EXTREMITIES: Show no lower extremity edema. LABORATORY DATA AND IMAGING DATA: CBC: White blood cell count is 12.1, slightly lower; hemoglobin has improved today at 8.2, platelet count is 333,000. The patient is status post 1 unit of packed red blood cells. Chemistry show a sodium of 132, potassium remains low at 3.2 and the patient will receive extra potassium supplements. CO2 was 19, stable. BUN is down to 93 from a high of 107. Creatinine is down to 4.9 from a high of 5.5. His baseline BUN is in the 30 to 40 range with a baseline creatinine in the 3 range. Calcium is 7.3, corrects to normal with an albumin of 2.7. Magnesium level 1.9. Iron saturations with the patient receiving IV Venofer on a regular basis is 79%. Microbiology, no cultures available. Urinalysis is still pending. ASSESSMENT: 1. Acute renal failure superimposed on chronic kidney disease stage IV. This is felt to be in part related to volume. The patient was anemic. Stool guaiacs are pending. Iron saturations are excellent as the patient remains on iron therapy. Renal ultrasound was done, which showed no evidence of obstructive uropathy. He does have borderline small kidneys with scarring consistent with chronic medical renal disease. He has years of history of hypertension, perhaps uncontrolled. He also has a component from a renal artery stenosis. 2. History of hypertension. Blood pressure is controlled on present medical therapy. We will continued beta-gi therapy, calcium channel gi therapy. No ELOY inhibitors, angiotensin receptor blockers. History of peripheral vascular disease secondary to cigarette smoking, stable. 3. History of secondary hyperparathyroidism, vitamin D deficiency. Levels are pending. 4. History of pulmonary hypertension, appears to be stable. 5. History of mitral regurgitation/tricuspid regurgitation, stable. Ejection fraction 61%, adequate. 6. Mild hypokalemia. We will continue potassium supplements. He is receiving IV potassium chloride in his IV fluids and we will give him extra oral potassium supplements. PLAN: 1. Oral potassium supplements as noted above. 2. Transfuse as necessary. 3. Obtain urinalysis, urine sodium, urine creatinine and urine Cedrick stain. 4. Continue blood pressure medications. 5. Continue renal diet. 6. Continue to monitor daily labs, so hopefully his BUN and creatinine back to baseline levels. Mendez Mack MD MTDD
[2018-02-22] MEDS: Vancomycin 25 MG/ML PO SCH ×2 (19:08→23:57)
--- NOTE | 2018-02-22 23:28 | PN ---
DATE: 02/22/2018 SUBJECTIVE: Patient is a 77-year-old male. Patient is seen and examined on the bedside. Easily arousable. Patient is not communicative too much, but arousable during conversation. No fever, no chills. No nausea, vomiting, diarrhea. PHYSICAL EXAMINATION: VITAL SIGNS: Blood pressure 142/92, temperature 98, respiratory rate 20, pulse is 66. HEENT: Head: Normocephalic, atraumatic. Eyes: PERRLA. Extraocular muscles intact. Conjunctivae clear. Nose: Patent. Mucous membrane moist. NECK: Supple. No carotid bruit. No JVD or thyromegaly. CHEST: Bilaterally symmetrical. HEART: S1 and S2 positive. LUNGS: Clear to auscultation. ABDOMEN: Soft. Bowel sounds present. No organomegaly. EXTREMITIES: No edema. No cyanosis. NEUROLOGICAL: Patient is sleepy, arousable. MEDICATIONS: Lipitor, Lopressor, Norvasc, IV fluid, Protonix, iron, Tylenol. LABORATORY DATA: White blood cell is 12.1, hemoglobin 8.2, platelets 333,000; status post 1 unit of packed RBCs. Sodium 132, potassium 3.2, BUN 93, creatinine 4.9. Calcium is 7.9. ASSESSMENT AND PLAN: Mr. Geovanna Guerra is a 77-year-old male with acute renal failure superimposed on chronic kidney disease, stage IV; history of hypertension; secondary hyperparathyroidism; vitamin D deficiency; history of pulmonary hypertension; mitral regurgitation; mild hypokalemia; oral potassium supplement is given; Clostridium difficile toxin colitis positive, antigen positive. Started on Flagyl. We will collect two more samples and ID consult called. Continue blood pressure medications. Encouraged to eat. Patient is very cachectic. Dr. Mendez Mack's notes appreciated. We will follow up. Shivani Walters MD MTDD
[2018-02-23] MEDS: Potassium Chloride 20 MEQ in Sodium Chloride 0.45% 1,000 ML IV SCH (05:14)
[2018-02-23] MEDS: Vancomycin 25 MG/ML PO SCH ×4 (05:16→23:20)
[2018-02-23] MEDS: Pantoprazole 40 mg EC Tab PO SCH ×2 (05:18→17:51)
[2018-02-23 07:08] LABS: HEMOGLOBIN 7.9 g/dL (14.0-18.0); MEAN CELL VOLUME 83.6 fl (80.0-105.0); MEAN CORPUSCULAR HEMOGLOBIN 28.1 pg (25.0-35.0); MEAN CORPUSCULAR HGB CONC 33.6 g/dl (31.0-37.0); RBC 2.81 10^6/uL (3.5-6.1); RED CELL DISTRIBUTION WIDTH 15.5 % (11.5-14.5); WHITE BLOOD COUNT 13.3 10^3/ul (4.5-11.0)
[2018-02-23 07:22] LABS: ALB/GLOB RATIO 0.9 (1.1-1.8); ALBUMIN 2.6 g/dL (3.0-4.8); CALCIUM 7.2 mg/dL (8.4-10.5)
[2018-02-23] MEDS: Ergocalciferol 50,000 Intl Units Cap PO SCH (14:51)
[2018-02-23] MEDS: [UNRECOGNIZED DRUG - OTHER] IV SCH (14:51)
[2018-02-23] MEDS: SODIUM BICARBONATE IV SCH (14:51)
[2018-02-23] MEDS: POTASSIUM CHLORIDE IV SCH (14:51)
--- NOTE | 2018-02-23 15:30 | PN ---
DATE: 02/23/2018 SUBJECTIVE: The patient is currently seen lying supine in bed, IV fluids are being infused. The patient continues to have diarrhea. Of note, stool for C. Diff is positive. Of note, stools are positive for blood. MEDICATIONS: Medication list reviewed. The patient is currently on Lipitor, Lopressor, Norvasc, IV fluid hydration, Protonix, Tylenol, p.o. vancomycin and Venofer weekly. OBJECTIVE: VITAL SIGNS: Blood pressure 150/93, temperature 97.4, pulse of 66 with a respiratory rate of 18. INTAKE/OUTPUT: Intake is 1440, output is 300. HEENT: Exam shows him to be normocephalic, atraumatic. Conjunctivae are pale. Sclerae nonicteric. NECK: Supple. No neck vein distention. CHEST: Clear to auscultation and percussion. No rales, rhonchi or wheezing. CARDIOVASCULAR: Shows a regular rate and rhythm with MR/TR. No S3. No S4 and no rub. ABDOMEN: Soft. Bowel sounds normal. No rebound, guarding or masses. EXTREMITIES: Shows gangrenous changes of his toes. Significantly diminished lower extremity pulses. No lower extremity edema. LABORATORY DATA AND IMAGING DATA: CBC today: White blood cell count up to 13.3, hemoglobin down to 7.9 again, platelet count is 340,000. Chemistry show normal electrolytes. CO2 was 16. BUN is 83 with a creatinine of 4.5. This continued improvement in these numbers. BUN is down from a high of 107 down to 83. Baseline BUN is in the 30-40 range. Creatinine is down from 5.5 to 4.5, baseline creatinine is in the mid 3 range. Calcium is 7.2. Phosphorus level is normal at 3.2. Magnesium is 1.8. Albumin is 2.6. His vitamin D level is nondetectable. Stools are positive for blood. Microbiology, as noted above stools are positive for C. diff. Urinalysis essentially negative with 2+ protein. Urine sodium 16 with a urine creatinine of 61. Urine Cedrick stain for eosinophils was negative. ASSESSMENT: 1. Acute renal failure superimposed on chronic kidney disease stage IV. This is in the setting of C. difficile colitis. Stools are positive for blood. Renal ultrasound was done, which showed no evidence for obstructive uropathy. He does have chronic medical renal disease. He also has a past history of right renal artery stenosis. 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 2. History of hypertension. Blood pressure is presently controlled with systolics in the 140-150 range, diastolics in the 90 range. He cannot receive angiotensin receptor blockers or ELOY inhibitors. We will continue beta-gi therapy and calcium channel gi therapy. 3. History of significant peripheral vascular disease with gangrenous changes of his toes. This is secondary to long history of cigarette smoking. 4. History of secondary hyperparathyroidism with vitamin D deficiency. Vitamin D levels are nondetectable. The patient will continue to receive vitamin D supplements. Phosphorus level is 3.2. 5. History of pulmonary hypertension, stable. 6. History of mitral regurgitation/tricuspid regurgitation, currently stable. Ejection fraction is 61%. 7. Status post mild hypokalemia. This is resolved with IV fluid hydration with potassium. The patient is developing a metabolic acidosis and will receive sodium bicarbonate and IV fluids. PLAN: 1. GI evaluation for C. diff colitis and stool is positive for blood. 2. Continue hydration with sodium bicarbonate and potassium supplements. 3. Expect his BUN and creatinine to gradually fall to baseline levels. 4. Perhaps vascular evaluation for his worsening ischemic changes of his lower extremity with gangrenous changes in his toes. 5. Continue renal diet. 6. Adjust blood pressure medication accordingly. 7. Agree with use of oral vancomycin. Mendez aMck MD
--- NOTE | 2018-02-23 16:02 | CON ---
DATE: 02/23/2018 CHIEF COMPLAINT: Diarrhea times several days. HISTORY OF PRESENT ILLNESS: This is a 77-year-old male with past medical history of peripheral vascular disease, hypertension, long-time smoker, stage IV kidney disease, history of right foot cellulitis, esophageal ulcers who is admitted through the emergency room, seen by Dr. Alcantar . The patient was admitted because of abnormal labs, low hemoglobin, and elevated creatinine and the patient had complained of weakness in the emergency room and is written that the patient did not have any diarrhea and denied any diarrhea in the emergency room and denied any blood in the stool, was admitted with diagnosis of elevated creatinine, low hemoglobin and feeling weak. Dr. Mack's consultation is noted and the patient states that he is not having any abdominal pain. He did have episode of loose bowels, probably anywhere between three and four loose bowels in one day and he has not had any fever and chills. There is no chest pain. No abdominal pain. REVIEW OF SYSTEMS: The 12-point review of systems is performed. PAST MEDICAL HISTORY: Significant for pulmonary hypertension, severe peripheral artery disease, systemic hypertension, stage IV kidney disease, esophageal ulcers, secondary hyperparathyroidism with low vitamin D, mitral regurgitation and tricuspid regurgitation, anemia, diastolic congestive heart failure. PAST SURGICAL HISTORY: Significant for angioplasty of the lower extremities and right hip surgery. ALLERGIES: THE PATIENT HAS NO KNOWN ALLERGIES. MEDICATIONS AT HOME: Include the patient to have Venofer, Tylenol, Lipitor, Lopressor, Norvasc, Protonix. PHYSICAL EXAMINATION: GENERAL: On exam, he is in bed, in no acute distress, nontoxic, appearing much older than stated age. He appears chronically , cachectic appearing. VITAL SIGNS: Temperature of 97, blood pressure is 150/80, respiratory rate of 18, heart rate of 63 with a BMI of only 14. HEENT: Reveals temporal wasting. NECK: Supple. LUNGS: Have decreased breath sounds. HEART: Normal S1, S2. ABDOMEN: Soft, nontender. No rebound or guarding. DATA: Laboratory examination reveals the patient's white count of 13,000, hemoglobin of 7, platelets of 340. Stool for C. diff antigen is positive. C. diff toxin is negative. The patient had a renal ultrasound, which is reviewed. Dr. Walters's history and physical examination is reviewed. Dr. Aguayo's note from yesterday is reviewed. Dr. Walters's progress note from yesterday is reviewed. ASSESSMENT AND PLAN: He is a 77-year-old male who was admitted, had antibiotics recently in the last time hospital admission, now has loose bowel movements and stool for C. Diff is positive with leukocytosis and renal failure, stage IV kidney disease and peripheral arterial disease, hypertension, pulmonary hypertension, diastolic congestive heart failure with the patient having severe pseudomembranous colitis with leukocytosis. We will treat the patient with p.o. vancomycin, discontinue the Flagyl. Would recommend 10-14 days of p.o. vancomycin. Once the patient does not have any loose bowel movements, defined as less than three a day, and the leukocytosis is improving, may discontinue the isolation once the patient has no diarrhea for 48 to 72 hours. No repeat testing is indicated. Popeye Barber MD
[2018-02-23] MEDS ORDERED: Acetaminophen 650mg/20.3ml solution UD PO PRN (17:22)
--- NOTE | 2018-02-24 00:17 | PN ---
DATE: 02/23/2018 SUBJECTIVE: Patient is seen and examined on the bedside, looking comfortable. No nausea, vomiting or diarrhea. No hematuria or hematochezia. The patient looks like very, very malnourished. Complaining about pain in the foot. Having diarrhea, but little bit better after starting p.o. vancomycin by Dr. Barber. Stool for C. difficile toxin stool sample is positive, waiting for the third one. PHYSICAL EXAMINATION: VITAL SIGNS: Blood pressure 150/93, temperature 97.4, pulse 56, respiratory rate 18. HEENT: Head normocephalic, atraumatic. Eyes PERRLA. Extraocular muscles intact. Conjunctivae clear. Nose patent. Mucous membrane moist. NECK: Supple. No carotid bruit. No JVD or thyromegaly. CHEST: Bilaterally symmetrical. HEART: S1 and S2 positive. LUNGS: Clear to auscultation. ABDOMEN: Soft. Bowel sounds present. No organomegaly. EXTREMITIES: No edema. No cyanosis. Some gangrenous changes in his toes. Still he has diminished lower extremity pulses. No lower extremity edema. MEDICATIONS: Lipitor, Lopressor, Norvasc, IV fluid, Protonix, iron, Tylenol. LABORATORY DATA: White blood cell is 13.3, hemoglobin 7.9, platelets 340. BUN 83, creatinine 4.5, calcium is 7.2, magnesium 1.8. ASSESSMENT AND PLAN: Mr. Geovanna Guerra is a 77-year-old male with multiple medical problems, acute renal failure superimposed on chronic kidney disease stage IV; has Clostridium difficile toxin colitis, stools are positive for blood also. Infectious Disease is on the case, Dr. Barber started p.o. vancomycin. History of hypertension. 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 History of significant peripheral vascular disease with gangrenous changes of his toes, this is secondary to long history of cigarettes smoking. History of secondary hyperparathyroidism with vitamin D deficiency. The patient is getting vitamin D supplement and phosphorus level is 3.2. History of pulmonary hypertension, stable. History of mitral regurgitation and currently stable. mild hypokalemia. Continue hydration with sodium bicarbonate and potassium supplements as per Nephrology. BUN and creatinine is trending down. Podiatry consult called. Continue renal diet. Adjust blood pressure medications accordingly. Agrees with Dr. Barber's input of vancomycin. Appreciated Dr. Mendez Mack's and Dr. Barber's input. Gastrointestinal and deep vein thrombosis prophylaxis. Repeat labs. We will follow up. Shivani Walters MD ELLEN
[2018-02-24] MEDS: [UNRECOGNIZED DRUG - OTHER] IV SCH ×2 (01:52→16:20)
[2018-02-24] MEDS: SODIUM BICARBONATE IV SCH ×2 (01:52→16:20)
[2018-02-24] MEDS: POTASSIUM CHLORIDE IV SCH ×2 (01:52→16:20)
[2018-02-24] MEDS: Pantoprazole 40 mg EC Tab PO SCH ×2 (06:01→15:31)
[2018-02-24] MEDS: Vancomycin 25 MG/ML PO SCH ×3 (06:01→17:24)
[2018-02-24 07:23] LABS: HEMOGLOBIN 8.1 g/dL (14.0-18.0); MEAN CELL VOLUME 82.8 fl (80.0-105.0); MEAN CORPUSCULAR HEMOGLOBIN 27.8 pg (25.0-35.0); MEAN CORPUSCULAR HGB CONC 33.6 g/dl (31.0-37.0); MEAN PLATELET VOLUME 9.5 fl (7.0-11.0); RBC 2.91 10^6/uL (3.5-6.1); RED CELL DISTRIBUTION WIDTH 15.4 % (11.5-14.5); WHITE BLOOD COUNT 14.6 10^3/ul (4.5-11.0)
[2018-02-24 07:32] LABS: ALB/GLOB RATIO 0.9 (1.1-1.8); ALBUMIN 2.7 g/dL (3.0-4.8); CALCIUM 7.5 mg/dL (8.4-10.5)
--- NOTE | 2018-02-24 08:27 | PQF MALNUT ---
This form is a permanent part of the medical record Clarification of your documentation is requested to better reflect the severity of illness and intensity of treatment of your patient. Indicators present Pt presented w/ wt loss, poor appetite, cachexic, Alb 2.7 , BMI 14.6, w/ level 3 - high risk nutritional assessment requiring Ensure supplement 2xd. Please document TYPE & ACUITY of malnutrition POA [x] Cachexia (due to severe malnutrition) [x] Albumin < 2.8 [] Decreased Pre-albumin [x] Dietary Consult [x] Provider documentation reflects BMI of: []_14.6 [] Low serum proteins [] Documented weight loss [x] Inability to consume adequate caloric intake [x] Anorexic [] Other: [] Location in the medical record that reflects the above clinical findings: [x] Dietary assessment Treatment Provided: [x]Ensure 2 x d PHYSICIAN'S RESPONSE Based on your medical judgment of the clinical indicators outlined above, are you treating this patient for a known or suspected: Type of Malnutrition Severity [] Mild [] Moderate [] Severe [] Protein calorie [] Mild [] Moderate [] severe [] Other, please indicate: []_ [x] If Unable to Determine, please check the box, sign and date. Present On Admission (POA) Indicator: x[] Present at the time of admission [] Not present at the time of admission [] Clinically Undetermined In responding to this query, please exercise your independent professional judgment. The fact that a question is asked does not imply that any particular answer is desired or expected. Thank you for your clarification on this documentation. If you have any questions please call:[ ][phone] * Thank you, [ ] Re Terry RN CDS program host Malnutrition Malnutrition results from an imbalance between the body's intake of nutrients and the body's use of nutrients to fuel energy expenditure. Malnutrition may be described as mild, moderate or severe. There are variations in clinical indicators, lab values and risk factors with each type and degree. When reviewing the nutritional status of the client, the entire clinical picture should be assessed and taken into consideration rather than a focus on a single laboratory value. Mild Malnutrition: patient's weight is noted at 85-95% of normal body weight; BMI 18-18.9; serum albumin 3.0-3.4; total lymphocyte count [id number]. Moderate Malnutrition: patient's weight is noted at 75-85% of normal body weight ; BMI 16-17.9; serum albumin 2.4-3.0; total lymphocyte count 800-1500. Severe Malnutrition: patient's weight is noted at <75% of normal body weight, BMI <16, serum albumin <2.4, total lymphocyte count <800, abnormally low VLDL/ LDL levels, creatinine <0.6, BUN <8, cholesterol <160. Other clinical indicators include: loss of subq fat, muscle wasting of the extremities, skin lesions, decubitus ulcers, hair loss, lethargy, constipation, decreased pulse/ respiratory rates, relative hypotension, hepatomegaly d/t fat infiltration, poor wound healing.~~~~~~ Risk: poor intake d/t food avoidance or NPO status for >7 days, protracted nutritional losses from malabsorption states, hypermetabolic state such as sepsis, prolonged fever, extensive trauma or montelongo, alcohol/drug abuse, advanced age, CKD, trouble chewing or swallowing, some medications, depression/ social isolation, special diets such as low protein Treatment: dietary consultation, protein-calorie dietary supplementation, daily weights, PEG tube, psychiatric consultation, appetite stimulants (Megace). [employer] Principles of Internal Medicine, 17th edition, chapters 9, 72 and 234. The [employer] Nutritional Support Core Curriculum, 2007 MTDD
--- NOTE | 2018-02-24 14:09 | RAD ---
PROCEDURE: Bilateral Feet Radiographs. HISTORY: gangrenous toes COMPARISON: None. FINDINGS: BONES: Right Foot: Normal. No fracture. Left Foot: No fracture. Small plantar calcaneal spur. JOINTS: Right Foot: Normal. No osteoarthritis. Left Foot: Normal. No osteoarthritis. SOFT TISSUES: Right Foot: Normal. Left Foot: Normal. OTHER FINDINGS: None. IMPRESSION: No plain radiographic evidence of osteomyelitis. Small left plantar calcaneal spur. No fracture/ dislocation.
[2018-02-24] MEDS ORDERED: Potassium Chloride 20 mEq ER Tab PO ONE (14:14)
[2018-02-24] MEDS: Mupirocin 2% Ointment 15 GM TUBE TOP SCH (17:24)
--- NOTE | 2018-02-24 18:19 | PN ---
DATE: 02/24/2018 SUBJECTIVE: The patient is in bed, seen early this morning in room 261, bed 2. No fevers and chills. PHYSICAL EXAMINATION: VITAL SIGNS: Temperature is 97, blood pressure is 140/70, respiratory rate of 18, heart rate of 77. HEENT Unremarkable. NECK: Supple. LUNGS: Have decreased breath sounds. HEART: Normal S1, S2. ABDOMEN: Soft, nontender. LABORATORY EXAMINATION: Reveals the patient's white count of 14,600, hemoglobin of 8, platelets of 316. Chemistries reveals a BUN of 72, creatinine of 4.3 and urinalysis is noted and C. diff antigen is positive. Review of the orders reveals the patient to be on vancomycin p.o. ASSESSMENT AND PLAN: A 77-year-old male who is admitted with loose bowel movements, leukocytosis and stage IV kidney disease and peripheral arterial disease, pulmonary hypertension, diastolic congestive heart failure, now #1 is severe pseudomembranous colitis on p.o. vancomycin. Day #3 of 14 days of p.o. vancomycin. The patient also had an x-ray of the foot, which showed chronic changes in the last admission and on normal x-ray of the foot. Dr. Walters's note is reviewed and Dr. Walters's progress note is also reviewed. We will follow closely with you. Popeye Barber MD
--- NOTE | 2018-02-24 18:46 | PN ---
DATE: 02/24/2018 SUBJECTIVE: The patient is currently seen just having returned from having x-rays of his feet for his gangrenous changes in his feet bilaterally. He remains on IV fluid hydration. He does not have any diarrhea as of today. Stools are positive for C. diff. He continues to have slow and steady improvement in his BUN and creatinine, but he is not down to baseline levels. MEDICATIONS: Medication list reviewed. The patient is on Mupirocin, vitamin D, Lipitor, Lopressor, Norvasc, IV fluid with sodium bicarbonate, potassium, Protonix, Tylenol, oral vancomycin, and Venofer. OBJECTIVE: INTAKE/OUTPUT: Intake is 1080, output is 500. VITAL SIGNS: Blood pressure is 143/77, temperature 97.7, respiratory rate is 18 with a pulse of 56. HEENT: Exam shows him to be normocephalic, atraumatic. Conjunctivae remain pale. Sclerae are nonicteric. NECK: Supple. No neck vein distention. CHEST: Clear to auscultation and percussion. No rales, rhonchi or wheezing. CARDIOVASCULAR: Shows a regular rate and rhythm with MR/TR. No S3. No S4. No rub. ABDOMEN: Soft. Bowel sounds normal. No rebound, guarding or masses. EXTREMITIES: Show gangrenous changes of his toes bilaterally. Significantly diminished lower extremity pulses. No lower extremity edema. LABORATORY DATA AND IMAGING DATA: CBC: White blood cell count from today 14.6, slightly higher; hemoglobin is stable at 8.1, platelet count is 316,000. Chemistry shows sodium of 136, potassium 3.5, CO2 was slightly improved at 18, chloride is 106, BUN continues to improve with 72. Creatinine is down to 4.3. Maximum BUN during hospitalization was 107, baseline BUN is in the 30-40 range. Maximum creatinine was 5.5. Baseline creatinine is in the low 3 range. Calcium 7.5, corrects to normal for an albumin of 2.7. Phosphorus and magnesium levels are normal. Microbiology: Stools are positive for C. diff. Urine showed a low urine sodium at 16 with a urine creatinine of 61% and a negative urine eosinophil stain. ASSESSMENT: 1. Acute renal failure superimposed on chronic kidney disease stage IV. Baseline creatinine in the low 3 range. This is the setting of volume depletion, C. diff colitis. Likely ongoing severe peripheral vascular disease. The patient has a history of significant right renal artery stenosis. He also has a long history of hypertensive nephrosclerosis. Renal ultrasound done on 02/21/2018 shows diffusely echogenic kidneys, right kidney 8.1 cm, left kidney 9 cm. No hydronephrosis. 2. Hypertension. Blood pressure is currently controlled on present medical therapy. The patient is not a candidate to ever receive angiotensin receptor blockers or ELOY inhibitors. We will continue monitoring his blood pressure and will continue beta-gi and calcium channel gi therapy. 3. History of severe peripheral vascular disease, gangrenous changes of his lower extremity bilaterally. The patient has a long history of cigarette smoking. 4. History of secondary hyperparathyroidism with vitamin D deficiency. Vitamin D levels are low and the patient continues on vitamin D therapy. PTH level is pending. The patient's phosphorus level is acceptable at 3.1 and will continue on renal diet. PRN start binders if phosphorus level rises above 5. 5. History of pulmonary hypertension, stable. 6. History of mitral regurgitation and tricuspid regurgitation with ejection fraction of 61%, stable. 7. Status post mild hypokalemia. The patient's current potassium level is borderline low at 3.5. We will continue IV fluid with potassium and I will give him an extra dose of potassium chloride today orally. 8. Clostridium difficile colitis. Continue oral vancomycin therapy. Diarrhea appears to have resolved. 9. Perhaps vascular evaluation post x-ray of his feet for evaluation of gangrenous changes in his toes, but in all likelihood, the patient would not benefit from any aggressive intervention. Mendez Mack MD MTDCecilia
--- NOTE | 2018-02-24 21:17 | CON ---
DATE: HISTORY OF PRESENT ILLNESS: A 77-year-old male well known to the [facility]. Wound Care team seen at bedside for continued evaluation and management of nonhealing gangrenous digital ulcerations on both feet. Patient was being seen by myself weekly at [facility] for local wound care. It should be noted that patient was extremely noncompliant with keeping dressings on, he refused medications by the nursing staff, and would not undergo any physical therapy as directed. PAST MEDICAL HISTORY: Patient's medical history is significant for severe peripheral arterial disease, essential hypertension, pulmonary hypertension, kidney disease, esophageal ulcers, gangrenous digital ulcers, diastolic congestive heart failure, anemia, hyperparathyroidism. ALLERGIES: PATIENT HAS NO KNOWN DRUG ALLERGIES. PAST SURGICAL HISTORY: Includes angioplasty of the lower extremities, hip surgery. SOCIAL HISTORY: Patient is , is a former heavy smoker times 60 years, recently stopped smoking approximately 6 months ago. Denies illicit drug use. Denies alcohol abuse. FAMILY HISTORY: Unremarkable. VITAL SIGNS: Reveal a temperature of 99, pulse rate of 57, blood pressure of 156/83, respiratory rate of 18. LABORATORY FINDINGS: Reveal a white count of 14.6, hemoglobin of 8.1, hematocrit of 24.1, platelet count of 316. Microbiology report of his stool reveals C. diff. antigen and toxin A and B. OBJECTIVE: Nonpalpable pedal pulses noted bilaterally. Absent pedal hair growth noted bilaterally at the lower extremities. Skin presents thin, shiny, and discolored bilaterally. Patient is unable to detect 5.07 g monofilament wire test bilaterally and his both feet are extremely painful when touched. There is noted to be gangrenous digital ulcerations on the right foot on digits 1, 4, and 5 as well as on the left foot on digits 3 and 4. The ulcers are gangrenous and have demarcated. There is no purulence. There is no malodor. There is no drainage. There is no cellulitis or signs of ascending cellulitis. ASSESSMENT: Gangrenous digital ulcerations to the right first, fourth, and fifth digits as well as the left third and fourth digits secondary to severe peripheral arterial disease. PLAN: Patient's feet were cleansed with normal sterile saline and application of Xeroform and a dry sterile dressing was applied. Consult with Dr. Renaldo Rolle is warranted. However, patient had undergone successful angioplasty earlier this year and the last CAMILA's taken at [facility] revealed 0.9 bilaterally. We will order x-rays to rule out osteomyelitis of the affected digits. We will order formal type Podus boots to offload both heels. Patient was encouraged to attend physical therapy, at least walk a little as tolerated; however, he refused. Patient will be seen and followed daily. We will wait x-ray results. Jason Pollard DPM
[2018-02-25] MEDS: Albuterol-Ipratrop 3 mg / 0.5 (3 ml) UD IH SCH ×4 (01:07→19:43)
[2018-02-25] MEDS: Vancomycin 25 MG/ML PO SCH ×5 (01:18→23:00)
--- NOTE | 2018-02-25 04:52 | CON ---
DATE: 02/24/2018 TIME: 7:09 p.m. CHIEF COMPLAINT AND HISTORY OF PRESENT ILLNESS: Mr. Guerra is a 77-year-old noncompliant vasculopath. I know him from an arteriogram in 10/2017. At that time, he had right digital gangrene and an elevated BUN and creatinine. A limited right lower extremity arteriogram was performed with angioplasty of the right SFA and placement of a right external iliac artery stent. He had one vessel tibial runoff and obvious pedal disease. His CAMILA/PVR exam was much improved after the procedure, but his digital gangrene in the right foot did not improve. He has been readmitted with bilateral digital gangrene and pain. He is essentially bedridden and living at [facility]. His baseline creatinine is between 4 and 5. He is being followed by Dr. Mack. He was a long-standing smoker who reportedly quit in 09/2017. He is treated for hypertension and hyperlipidemia. He has no significant cardiac history. On physical exam, he has bilateral digital gangrene, more extensive on the right than the left. His right femoral and popliteal pulses are palpable. His distal right pulses are not palpable. He has a weak left femoral pulse and absent left popliteal and distal pulses. I am not sure that revascularization is a realistic goal in Mr. Guerra. Any intervention would likely result in dialysis. He has significant small vessel disease in his right and did not improve despite two-level revascularization. Most likely, he will eventually require amputations for pain management or infection. I will discuss the situation with Atul Alejandre, and Dr. Mack. Renaldo Rolle MD MTDCecilia
[2018-02-25] MEDS: SODIUM BICARBONATE IV SCH ×2 (05:17→10:44)
[2018-02-25] MEDS: POTASSIUM CHLORIDE IV SCH ×2 (05:17→10:44)
[2018-02-25] MEDS: [UNRECOGNIZED DRUG - OTHER] IV SCH ×2 (05:17→10:44)
[2018-02-25] MEDS: Pantoprazole 40 mg EC Tab PO SCH ×2 (05:19→17:35)
[2018-02-25 06:08] LABS: HEMOGLOBIN 8.7 g/dL (14.0-18.0); MEAN CELL VOLUME 83.5 fl (80.0-105.0); MEAN CORPUSCULAR HEMOGLOBIN 28.2 pg (25.0-35.0); MEAN CORPUSCULAR HGB CONC 33.7 g/dl (31.0-37.0); MEAN PLATELET VOLUME 9.9 fl (7.0-11.0); RBC 3.09 10^6/uL (3.5-6.1); RED CELL DISTRIBUTION WIDTH 15.7 % (11.5-14.5)
[2018-02-25 06:12] LABS: WHITE BLOOD COUNT 20.2 10^3/ul (4.5-11.0)
[2018-02-25 06:21] LABS: ALB/GLOB RATIO 0.9 (1.1-1.8); ALBUMIN 2.7 g/dL (3.0-4.8); CALCIUM 7.6 mg/dL (8.4-10.5)
--- NOTE | 2018-02-25 07:54 | CON ---
DATE: 02/24/2018 PULMONARY CONSULTATION REFERRING PHYSICIAN: Shivani Walters MD. REASON FOR CONSULTATION: Chronic obstructive lung disease, cough, and shortness of breath. HISTORY OF PRESENT ILLNESS: This is a 77-year-old gentleman with a past medical history significant for hypertension, renal failure, anemia, pulmonary hypertension, cardiac diastolic dysfunction, recently discharged with antibiotics, now admitted with abdominal pain, diarrhea, found to have C. diff colitis, seen by Infectious Diseases, on antibiotics. Presently, no chest pain, no nausea, no vomiting, no leg pain, no leg swelling. PAST MEDICAL HISTORY: As per history of present illness. ALLERGIES: NONE KNOWN. SOCIAL HISTORY: No active smoking. No alcohol use. FAMILY HISTORY: No significant cardiopulmonary disease reported. MEDICATIONS: She is on Bactroban ointment to affected area twice a day, vitamin D 50,000 units every 7 days, Lipitor 20 mg daily, metoprolol tartrate 25 mg twice a day, Norvasc 10 mg daily, IV fluid 80 mL per hour, Protonix 40 mg twice a day, Tylenol p.r.n., vancomycin 250 mg every 6 hours, and Venofer 100 mg weekly. REVIEW OF SYSTEMS: No headache or rhinitis. Mild cough, shortness of breath. No chest pain. No nausea. No vomiting. Mild abdominal pain. Still having loose bowel movement. No leg pain or leg swelling. Has multiple pressure ulcers. PHYSICAL EXAMINATION: GENERAL: No acute distress. VITAL SIGNS: Temperature is 98, heart rate 60, respiratory rate is 18, blood pressure 158/80, pulse ox is 99% on nasal cannula. HEENT: Moist mucous membrane. Crowded airway. Mallampati score is 4. NECK: Supple. No JVD. LUNGS: Have a scattered rhonchi. HEART: S1 and S2. ABDOMEN: Soft, nontender. No organomegaly. EXTREMITIES: No edema, has multiple pressure ulcers. NEUROLOGIC: Awake, alert, and follows simple commands. LABORATORY DATA: Shows stool for C. diff sent two days ago has C. diff antigen positive, toxin negative. IMPRESSION AND PLAN: Chronic obstructive lung disease, renal failure, peripheral artery disease, multiple pressure ulcers, pulmonary hypertension, cardiac diastolic dysfunction, presently has Clostridium difficile colitis. Agree with the present management. Continue bronchodilator. Keep head at 45 degrees. Supplement oxygen. We will get chest x-ray to assure the stability of pulmonary infiltrates. Pressure ulcer precaution. Thank you and we will follow with you. Jt Hayden MD
--- NOTE | 2018-02-25 08:12 | PN ---
DATE: 02/24/2018 SUBJECTIVE: The patient was seen and examined at the bedside, looking comfortable. Wants to talk to the family, was trying to call. No fever. No chills. No nausea, vomiting or diarrhea. No hematuria. No hematochezia. No swelling of the legs. No chest pain. No palpitation. No headache, no dizziness. PHYSICAL EXAMINATION: VITAL SIGNS: Temperature is 97, blood pressure 140/70, respiratory rate 18, pulse is 77. HEENT: Head: Normocephalic and atraumatic. Eyes: PERRLA. Extraocular muscles are intact. Conjunctivae are clear. Nose: Patent. Mucous membranes are moist. NECK: Supple. No carotid bruits. No JVD or thyromegaly. CHEST: Bilaterally symmetrical. HEART: S1 and S2 positive. LUNGS: Clear to auscultation. ABDOMEN: Soft. Bowel sounds present. No organomegaly. EXTREMITIES: No edema. No cyanosis. NEUROLOGIC: Patient is awake and alert. Moving all 4 extremities. No focal deficits. MEDICATIONS: Bactroban, vitamin D, Lipitor, Lopressor, Nicoderm, Norvasc, potassium, Protonix, Tylenol, vancomycin, iron infusion with Venofer. LABORATORY DATA: White blood cell is 14.2, hemoglobin 8.1, hematocrit 24.1, platelets 316. Sodium 136, potassium 3.5, BUN 72, creatinine of 4.3, glucose 105. ASSESSMENT AND PLAN: The patient is a 77-year-old male with leukocytosis, anemia, renal insufficiency, hypocalcemia, hypoparathyroidism, vitamin D deficiency, Clostridium difficile toxin colitis, getting p.o. vancomycin, proteinuria, hematuria, stool occult positive for blood. Infectious Disease is on the case, Dr. Barber, and health and physical education professor . Went for foot x-ray. Consult called with Dr. Ivrin of Podiatry. Diarrhea is improving. Pulmonary hypertension, diastolic congestive heart failure, pseudomembranous colitis, on p.o. vancomycin, day [address] Barber's note is reviewed. Gastrointestinal and deep vein thrombosis prophylaxis. Repeat labs. We will follow. Shivani Walters MD MTDD
[2018-02-25] MEDS: Mupirocin 2% Ointment 15 GM TUBE TOP SCH ×2 (10:06→17:37)
--- NOTE | 2018-02-25 12:55 | RAD ---
HISTORY: r/o infiltrate COMPARISON: 01/12/2018 TECHNIQUE: Chest PA and lateral FINDINGS: LUNGS: No active pulmonary disease. PLEURA: No significant pleural effusion identified. No pneumothorax apparent. CARDIOVASCULAR: There is severe vascular congestion and perihilar edema OSSEOUS STRUCTURES: No significant abnormalities. VISUALIZED UPPER ABDOMEN: Normal. OTHER FINDINGS: None. IMPRESSION: There is severe vascular congestion and perihilar edema
--- NOTE | 2018-02-25 14:06 | PN ---
DATE: 02/25/2018 SUBJECTIVE: The patient is seen lying in bed. He is awake. He is alert. He complains of severe pain in his feet. He is tired. He denies any chest pain. Denies any shortness of breath. Denies any nausea, vomiting or diarrhea. PHYSICAL EXAMINATION: GENERAL: Thinly built elderly male lying in bed. VITAL SIGNS: Blood pressure 167/95, heart rate 74, respiratory rate 20, temperature 97.4. HEENT: Normocephalic, atraumatic, positive pallor. NECK: Supple, no JVD. LUNGS: Bilateral equal air entry, equal expansion. CARDIAC: S1 and S2, regular rate and rhythm, no murmur, no rub. ABDOMEN: Soft, nondistended, nontender, bowel sounds present. EXTREMITIES: Dressing of both feet. INTAKE AND OUTPUT: 1080/300 (?). LABORATORY DATA: WBC 20, hemoglobin 8.7, hematocrit 25.8, platelets 383. Sodium 138, potassium 4, chloride 106, CO2 20, BUN 63, creatinine 4.1, glucose 105, calcium 7.6, albumin 2.7, corrected calcium is 8.5. Phosphorus 3, magnesium 1.7, total protein 5.8. Urinalysis, yellow clear, pH 5.5, specific gravity 1.020, protein 100, blood small, urine creatinine 61, urine sodium 16. Stool occult positive on the . Cultures, no growth. Renal ultrasound . CURRENT MEDICATIONS: List reviewed. Mupirocin, vitamin D, Lipitor, Lopressor, Norvasc, IV fluids with sodium bicarbonate, potassium, Protonix, Tylenol, vancomycin and Venofer. ASSESSMENT: 1. Acute kidney injury superimposed on chronic kidney disease stage IV, perhaps baseline is around 4 now. 2. Hypertension. 3. Severe peripheral vascular disease, gangrene in lower extremity. 4. Secondary hyperparathyroidism. 5. Pulmonary hypertension. 6. Mild hypokalemia. PLAN: 1. Continue IV fluids with sodium bicarbonate for the time being. 2. Push p.o. intake. 3. Continue antibiotics as per ID recommendations. 4. Dose all antibiotics for creatinine clearance about 10 to 30 mL/minute. 5. Currently he has compensated secondary hyperparathyroidism. 6. Avoid . Latrice Holder MD [facility] # [id number]
--- NOTE | 2018-02-25 14:16 | US ---
PROCEDURE: Lower extremity CAMILA exam HISTORY: Severe peripheral vascular disease. Bilateral digital gangrene. Recent right lower extremity intervention in October 2017. No improvement. PHYSICIAN(S): Renaldo Rolle MD. FINDINGS: The resting ABIs are inaccurate due to calcification: Right, 0.92 and left, 0.64 The brachial systolic pressures are symmetric. There is a 64 mm difference between high thigh pressures, lower on the left. This is consistent with left iliac occlusive disease. The right calf PVR waveform does not augment. This suggests the recent right SFA intervention has re- occluded. The left calf PVR waveform is severely blunted and nearly flat. This is suggestive of left SFA occlusive disease. The right ankle and metatarsal waveforms are severely blunted the left ankle and metatarsal waveforms are essentially flat IMPRESSION: 1. New left iliac occlusive disease. 2. The right calf PVR waveform does not augment. This suggests the recent right SFA intervention has re- occluded 3. Severe bilateral tibial disease. The right ankle and metatarsal waveforms are severely blunted. The left ankle and metatarsal waveforms are essentially flat.
--- NOTE | 2018-02-25 16:38 | CP.PCM.PN ---
Subjective - Date & Time of Evaluation Date of Evaluation: 02/25/18 Time of Evaluation: 09:45 - Subjective Subjective: No fevers, not in distress, no abdominal pain, no still with pain in his feet and toes. Objective - Vital Signs/Intake and Output Vital Signs (last 24 hours): Temp Pulse Resp BP Pulse Ox 97.4 F L 62 20 156/91 H 94 L 02/25/18 06:00 02/25/18 06:00 02/25/18 06:00 02/25/18 06:00 02/25/18 06:00 Intake and Output: 02/25/18 02/25/18 06:59 18:59 Intake Total 1080 Output Total 300 Balance 780 - Medications Medications: Current Medications Acetaminophen (Tylenol 325mg Tab) 650 mg PO Q6H PRN PRN Reason: Pain, severe (8-10) Acetaminophen (Tylenol 650mg/20.3ml Solution Ud) 650 mg PO Q6H PRN PRN Reason: Pain, moderate (4-7) Last Admin: 02/23/18 23:11 Dose: 650 mg Albuterol/Ipratropium (Duoneb 3 Mg/0.5 Mg (3 Ml) Ud) 3 ml IH [id number] [facility] Last Admin: 02/25/18 07:39 Dose: 3 ml Amlodipine Besylate (Norvasc) 10 mg PO DAILY [facility] Last Admin: 02/24/18 09:06 Dose: 10 mg Atorvastatin Calcium (Lipitor) 20 mg PO DIN [facility] Last Admin: 02/24/18 17:23 Dose: 20 mg Ergocalciferol (Drisdol 50,000 Intl Units Cap) 1 cap PO Q7D [facility] Last Admin: 02/23/18 14:51 Dose: 1 cap Potassium Chloride 20 meq/Sodium Bicarbonate 50 meq/Dextrose/Sodium Chloride 1, 060 mls @ 80 mls/hr IV .[id number] [facility] Last Admin: 02/25/18 05:17 Dose: Not Given Iron Sucrose (Venofer) 100 mg IV QWK [facility] Metoprolol Tartrate (Lopressor) 25 mg PO BID [facility] Last Admin: 02/24/18 17:23 Dose: 25 mg Mupirocin (Bactroban Ointment) 0 gm TOP BID [facility] Last Admin: 02/24/18 17:24 Dose: 1 applic Pantoprazole Sodium (Protonix Ec Tab) 40 mg PO 0600,1600 [facility] Last Admin: 02/25/18 05:19 Dose: 40 mg Vancomycin HCl (Vancocin 25 Mg/Ml (Oral Use)) 250 mg PO Q6 [facility] PRN Reason: Protocol Stop: 03/04/18 18:01 Last Admin: 02/25/18 05:19 Dose: 250 mg - Labs Labs: 02/25/18 05:15 02/25/18 05:10 - Constitutional Appears: Chronically Ill - Head Exam Head Exam: NORMAL INSPECTION - Neck Exam Neck Exam: absent: Meningismus - Respiratory Exam Respiratory Exam: Decreased Breath Sounds - Cardiovascular Exam Cardiovascular Exam: +S1, +S2 - GI/Abdominal Exam GI & Abdominal Exam: Soft. absent: Tenderness Assessment and Plan - Assessment and Plan (Free Text) Plan: Assessment C. diff. associated diarrhea history of right 1st toe gangrene with no evidence of active infection peripheral vascular disease with necrotic toes and ulceration bilaterally, S/P revascularization consider HCAP, bilateral, clinically improving acute encephalopathy, etiology to be determined, now resolved history of Right foot cellulitis with right hallux gangrene Peripheral vascular disease HTN Plan continue PO Vancomycin day 3 to complete 10-14 days Podiatry doing local wound care for the feet
--- NOTE | 2018-02-25 18:37 | PN ---
DATE: 02/25/2018 PULMONARY PROGRESS NOTE REFERRING PHYSICIAN: Shivani Walters MD SUBJECTIVE: He is lying in the bed, sleepy, arousable. Night was unremarkable, had some cough. No nausea. No vomiting. No diarrhea. Lower extremity pain and discomfort. OBJECTIVE: GENERAL: No acute distress. VITAL SIGNS: Temperature is 98, heart rate 62, respiratory rate is 20, blood pressure 167/95, pulse ox 95% on room air. HEENT: Moist mucous membrane. Crowded airway. NECK: Supple. No JVD. LUNGS: Fair airflow with few rhonchi. HEART: S1, S2. ABDOMEN: Soft, nontender. No organomegaly. EXTREMITIES: Pressure ulcers with decreased pulses, tender below both extremities to touch. NEUROLOGIC: Sleepy, arousable. Follows simple commands. MEDICATIONS: He is on Bactroban ointment to affected area twice a day, also vitamin D 50,000 units every 7 days, DuoNeb every 6 hours, also on Lipitor 20 mg daily, metoprolol tartrate 25 mg twice a day, Norvasc 10 mg daily, on IV fluid with potassium 80 mL per hour, Protonix 40 mg twice a day, Tylenol p.r.n. basis, vancomycin 250 mg every 6 hours p.o., and Venofer 100 mg weekly. LABORATORY DATA: Shows hemoglobin 8.7, hematocrit 25.8, WBC 20,000, and platelets 383. Sodium 138, potassium 4, chloride 106, bicarbonate 20. BUN 63, creatinine 4.1. Glucose 105. Calcium is 7.6, phosphorous 3, magnesium 1.7. AST 16, ALT 19, alk phos is 130, albumin is 2.7. Vitamin D less than 12. Chest x-ray done this morning shows severe vascular congestion and perihilar infiltrates. IMPRESSION AND PLAN: Chronic obstructive lung disease, renal failure, peripheral vascular disease, multiple pressure ulcers, pulmonary hypertension, cardiac diastolic dysfunction, has a lot of pain of the lower extremity. Dr. Renaldo Rolle's note reviewed. Though pulmonary point of view has a congestion, but there is no significant shortness of breath, need to monitor and keep euvolemic. Clinically, I feel he may benefit from bilateral below-knee amputation. He is bedridden, not able to stand or walk, so probably to help him with pain management, that is not a bad idea. Follow up CBC and leukocytes are closely being followed by Dr. Barber. Thank you and we will follow with you. Jt Hayden MD
--- NOTE | 2018-02-25 23:59 | CP.PCM.PN ---
Subjective - Date & Time of Evaluation Date of Evaluation: 02/25/18 Time of Evaluation: 17:00 - Subjective Subjective: Podiatry Progress Note- Dr. Irvin 77 M seen and evaluated at bedside with attending Dr. Irvin for nonhealing gangrenous digital ulcerations to bilateral foot. Patient is seen resting comfortably in bed, in NAD, and AA0x3. Patient reports pain to the lower extremity. No new pedal complaints Objective - Vital Signs/Intake and Output Vital Signs (last 24 hours): Temp Pulse Resp BP Pulse Ox 97.1 F L 64 19 145/82 94 L 02/25/18 18:00 02/25/18 18:22 02/25/18 18:00 02/25/18 18:22 02/25/18 06:00 - Medications Medications: Current Medications Acetaminophen (Tylenol 325mg Tab) 650 mg PO Q6H PRN PRN Reason: Pain, severe (8-10) Acetaminophen (Tylenol 650mg/20.3ml Solution Ud) 650 mg PO Q6H PRN PRN Reason: Pain, moderate (4-7) Last Admin: 02/23/18 23:11 Dose: 650 mg Albuterol/Ipratropium (Duoneb 3 Mg/0.5 Mg (3 Ml) Ud) 3 ml IH [id number] [facility] Last Admin: 02/25/18 19:43 Dose: 3 ml Amlodipine Besylate (Norvasc) 10 mg PO DAILY [facility] Last Admin: 02/25/18 10:04 Dose: 10 mg Atorvastatin Calcium (Lipitor) 20 mg PO DIN [facility] Last Admin: 02/25/18 17:35 Dose: 20 mg Ergocalciferol (Drisdol 50,000 Intl Units Cap) 1 cap PO Q7D [facility] Last Admin: 02/23/18 14:51 Dose: 1 cap Potassium Chloride 20 meq/Sodium Bicarbonate 50 meq/Dextrose/Sodium Chloride 1, 060 mls @ 80 mls/hr IV .[id number] [facility] Last Admin: 02/25/18 10:44 Dose: 80 mls/hr Iron Sucrose (Venofer) 100 mg IV QWK [facility] Metoprolol Tartrate (Lopressor) 25 mg PO BID [facility] Last Admin: 02/25/18 18:22 Dose: 25 mg Mupirocin (Bactroban Ointment) 0 gm TOP BID [facility] Last Admin: 02/25/18 17:37 Dose: Not Given Pantoprazole Sodium (Protonix Ec Tab) 40 mg PO 0600,1600 [facility] Last Admin: 02/25/18 17:35 Dose: 40 mg Vancomycin HCl (Vancocin 25 Mg/Ml (Oral Use)) 250 mg PO Q6 [facility] PRN Reason: Protocol Stop: 03/04/18 18:01 Last Admin: 02/25/18 23:00 Dose: 250 mg - Labs Labs: 02/25/18 05:15 02/25/18 05:10 - Constitutional Appears: Non-toxic, No Acute Distress - Extremities Exam Extremities Exam: absent: Calf Tenderness Additional comments: Bilateral LE focused exam Vasc: DP and PT unpalpable, temperature gradient cool to cool, no edema noted to the LE, CFT delayed to the digits Derm: right hallux wound with demarcated dry eschar at distal medial tuft; 4th and 5th toes with dry demarcated eschars at distal rojelio, no fluctanance, no abscess, no clinical signs of infection, left foot digit 3 and 4 appear hyperpigmented and gangrenous with no open lesions, well demarcation noted. No drainage, no erythema, no streaking, no clinical suspicion of active infection Neuro: gross and protective sensation intact Ortho: severe pain noted with light palpation to the right hallux and generalized forefoot, mild pain on the left forefoot, patient unable to MM secondary to guarding. - Neurological Exam Neurological Exam: Alert, Awake Assessment and Plan - Assessment and Plan (Free Text) Assessment: 77 year old male with right foot ischemia and gangrenous changes to 1st, 4th, 5th digits and left 3rd and 4th digits secondary to PVD Plan: Patient examined and evaluated Discussed plan with attending Dr. Irvin Afebrile; WBC 19.5 X-rays on 02/24/18- WNL no bony pathology noted, no OM Duplex RLE arterial US- Impression: 1. New left iliac occlusive disease 2. Right calf PVR waveform does not augment. Suggest recent right SFA intervention re-occluded 3. Severe bilateral tibial disease No podiatric surgical intervention at this time Will continue to provide local wound care - betadine and to air out Multipodus boots must be worn at all times while in bed Patient will benefit to a long-term facility for physical therapy Podiatry will continue to follow
[2018-02-26] MEDS: Albuterol-Ipratrop 3 mg / 0.5 (3 ml) UD IH SCH ×4 (01:42→20:29)
[2018-02-26] MEDS: SODIUM BICARBONATE IV SCH ×3 (02:07→23:46)
[2018-02-26] MEDS: [UNRECOGNIZED DRUG - OTHER] IV SCH ×3 (02:07→23:46)
[2018-02-26] MEDS: POTASSIUM CHLORIDE IV SCH ×3 (02:07→23:46)
--- NOTE | 2018-02-26 04:38 | PN ---
DATE: 02/25/2018 SUBJECTIVE: The patient is 77-year-old male. The patient was seen and examined at the bedside on 02/25/2018. He was seen in his room, lying comfortably. Night was unremarkable, having some cough, having some pain in the feet. No nausea, vomiting. Diarrhea is getting better. No fever. No chills. PHYSICAL EXAMINATION: VITAL SIGNS: Temperature is 98.2, heart rate is 62, respiratory rate 20, blood pressure 167/95, pulse oximetry 95% on room air. HEENT: Head: Normocephalic and atraumatic. Eyes: PERRLA. Extraocular muscles are intact. Conjunctivae are clear. Nose: Patent. NECK: Supple. No carotid bruits. No JVD or thyromegaly. CHEST: Bilaterally symmetrical. LUNGS: Fair air flow with few rhonchi. HEART: S1 and S2 positive. ABDOMEN: Soft, nontender. No organomegaly. EXTREMITIES: Has pressure ulcers with decreased pulses below the extremities. NEUROLOGIC: Patient is awake, follow simple commands. MEDICATIONS: Bactroban ointment, vitamin D, Duoneb, Lipitor, metoprolol, Norvasc, IV fluid, Protonix, Tylenol, vancomycin, Venofer. LABORATORY DATA: Hemoglobin 8.7, hematocrit 25.8, white blood cells 20,000. Platelets 383. Sodium 138, potassium 4, BUN 53, creatinine 4.1, AST 16, ALT 19. ASSESSMENT AND PLAN: Mr. Geovanna Guerra is a 77-year-old male with renal failure, peripheral vascular disease, multiple pressure ulcers, gangrene of the toes, pulmonary hypertension, cardiac diastolic dysfunction, complaining about pain in the lower extremities. Length of time discussion done with Dr. Renaldo Rolle. He will talk to the patient's family and I called Dr. Renaldo Rolle. The patient need amputation of both feet. The patient is bedridden and not walking around, not able to stand or walk. The patient was a heavy smoker whole of the life, may be, the patient has some vascular disease. Doing pain management, getting antibiotics per Dr. Barber. We will follow. Shivani Walters MD
[2018-02-26] MEDS: Vancomycin 25 MG/ML PO SCH ×3 (05:01→17:10)
[2018-02-26] MEDS: Pantoprazole 40 mg EC Tab PO SCH ×2 (05:01→17:11)
[2018-02-26 07:05] LABS: HEMOGLOBIN 8.1 g/dL (14.0-18.0); MEAN CELL VOLUME 84.2 fl (80.0-105.0); MEAN CORPUSCULAR HEMOGLOBIN 27.8 pg (25.0-35.0); MEAN CORPUSCULAR HGB CONC 33.1 g/dl (31.0-37.0); MEAN PLATELET VOLUME 9.7 fl (7.0-11.0); RBC 2.91 10^6/uL (3.5-6.1); RED CELL DISTRIBUTION WIDTH 16.1 % (11.5-14.5); WHITE BLOOD COUNT 19.5 10^3/ul (4.5-11.0)
[2018-02-26 07:10] LABS: ALB/GLOB RATIO 0.9 (1.1-1.8); ALBUMIN 2.6 g/dL (3.0-4.8); CALCIUM 7.3 mg/dL (8.4-10.5)
--- NOTE | 2018-02-26 10:36 | CP.PCM.PN ---
<Kentrell Hadley - Last Filed: 02/26/18 10:31> Subjective - Date & Time of Evaluation Date of Evaluation: 02/25/18 Time of Evaluation: 10:00 - Subjective Subjective: Podiatry Progress Note- Dr. Irvin 77 M seen and evaluated at bedside with attending Dr. Irvin for nonhealing ischemic gangrenous toes of . Patient is seen resting comfortably in bed, in NAD , and AA0x3. Denies acute overnight events. Patient reports pain to the foot. Reports pain worse with pressure. Denies nausea, fever, shortness of breath, chest pains or chills. No new pedal complaints. Patient seen with multipodus boots on. Objective - Vital Signs/Intake and Output Vital Signs (last 24 hours): Temp Pulse Resp BP Pulse Ox 97.5 F L 67 20 161/85 H 95 02/26/18 05:43 02/26/18 05:43 02/26/18 05:43 02/26/18 05:43 02/26/18 05:43 Intake and Output: 02/26/18 02/26/18 06:59 18:59 Intake Total 1100 Output Total 450 Balance 650 - Medications Medications: Current Medications Acetaminophen (Tylenol 325mg Tab) 650 mg PO Q6H PRN PRN Reason: Pain, severe (8-10) Last Admin: 02/26/18 05:01 Dose: 650 mg Acetaminophen (Tylenol 650mg/20.3ml Solution Ud) 650 mg PO Q6H PRN PRN Reason: Pain, moderate (4-7) Last Admin: 02/23/18 23:11 Dose: 650 mg Albuterol/Ipratropium (Duoneb 3 Mg/0.5 Mg (3 Ml) Ud) 3 ml IH [id number] [facility] Last Admin: 02/26/18 07:25 Dose: Not Given Amlodipine Besylate (Norvasc) 10 mg PO DAILY [facility] Last Admin: 02/25/18 10:04 Dose: 10 mg Atorvastatin Calcium (Lipitor) 20 mg PO DIN [facility] Last Admin: 02/25/18 17:35 Dose: 20 mg Ergocalciferol (Drisdol 50,000 Intl Units Cap) 1 cap PO Q7D [facility] Last Admin: 02/23/18 14:51 Dose: 1 cap Potassium Chloride 20 meq/Sodium Bicarbonate 50 meq/Dextrose/Sodium Chloride 1, 060 mls @ 80 mls/hr IV .[id number] [facility] Last Admin: 02/26/18 05:34 Dose: Not Given Iron Sucrose (Venofer) 100 mg IV QWK [facility] Metoprolol Tartrate (Lopressor) 25 mg PO BID [facility] Last Admin: 02/25/18 18:22 Dose: 25 mg Mupirocin (Bactroban Ointment) 0 gm TOP BID [facility] Last Admin: 02/25/18 17:37 Dose: Not Given Pantoprazole Sodium (Protonix Ec Tab) 40 mg PO 0600,1600 [facility] Last Admin: 02/26/18 05:01 Dose: 40 mg Vancomycin HCl (Vancocin 25 Mg/Ml (Oral Use)) 250 mg PO Q6 [facility] PRN Reason: Protocol Stop: 03/04/18 18:01 Last Admin: 02/26/18 05:01 Dose: 250 mg - Labs Labs: 02/26/18 06:00 02/26/18 06:00 - Constitutional Appears: Well, Non-toxic, No Acute Distress - Extremities Exam Extremities Exam: absent: Calf Tenderness - Neurological Exam Neurological Exam: Alert, Awake, Oriented x3 Additional comments: Bilateral LE focused exam Vasc: DP and PT unpalpable, temperature gradient cool to cool, no edema noted to the LE, CFT delayed to the digits Derm: right hallux wound with demarcated dry eschar at distal medial tuft; 4th and 5th toes with dry demarcated eschars at distal rojelio as well, no fluctanance , no abscess, no clinical signs of infection, left foot digit 3 and 4 appear hyperpigmented and gangrenous with no open lesions, well demarcation noted. No drainage, no erythema, no streaking, no clinical suspicion of active infection. Neuro: gross and protective sensation intact Ortho: severe pain noted with light palpation to the right hallux and generalized forefoot, mild pain on the left forefoot, patient unable to MM secondary to guarding. - Psychiatric Exam Psychiatric exam: Normal Affect, Normal Mood Assessment and Plan - Assessment and Plan (Free Text) Assessment: 77 year old male with right foot ischemia and gangrenous changes to 1st, 4th, 5th digits and left 3rd and 4th digits secondary to PVD Plan: Patient examined and evaluated Discussed plan with attending Dr. Irvin Afebrile; WBC 19.5 X-rays on 02/24/18- WNL no bony pathology noted, no OM Duplex RLE arterial US- Impression: 1. New left iliac occlusive disease 2. Right calf PVR waveform does not augment. Suggest recent right SFA intervention re-occluded 3. Severe bilateral tibial disease No podiatric surgical intervention at this time Will continue to provide local wound care - betadine and to air out Multipodus boots must be worn at all times while in bed Patient will benefit to a long-term facility for physical therapy Podiatry will continue to follow <Sylwia Irvin - Last Filed: 03/08/18 20:10> Objective - Vital Signs/Intake and Output Vital Signs (last 24 hours): Temp Pulse Resp BP Pulse Ox 98.6 F 64 20 123/67 95 03/08/18 06:00 03/08/18 11:15 03/08/18 06:00 03/08/18 11:15 03/08/18 06:00 - Labs Labs: 03/08/18 08:00 03/08/18 08:00 PT 12.7 SECONDS (9.4-12.5) H 03/04/18 13:00 INR 1.10 (0.93-1.08) H 03/04/18 13:00 APTT 30.6 Seconds (25.1-36.5) 03/04/18 13:00 Attending/Attestation - Attestation I have personally seen and examined this patient.: Yes I have fully participated in the care of the patient.: Yes I have reviewed all pertinent clinical information, including history, physical exam and plan: Yes
--- NOTE | 2018-02-26 11:17 | CP.PCM.PN ---
Subjective - Date & Time of Evaluation Date of Evaluation: 02/26/18 Time of Evaluation: 09:45 - Subjective Subjective: No diarrhea currently, no fevers, not in distress. Objective - Vital Signs/Intake and Output Vital Signs (last 24 hours): Temp Pulse Resp BP Pulse Ox 97.5 F L 67 20 161/85 H 95 02/26/18 05:43 02/26/18 05:43 02/26/18 05:43 02/26/18 05:43 02/26/18 05:43 Intake and Output: 02/25/18 02/26/18 18:59 06:59 Intake Total 1100 Output Total 450 Balance 650 - Medications Medications: Current Medications Acetaminophen (Tylenol 325mg Tab) 650 mg PO Q6H PRN PRN Reason: Pain, severe (8-10) Last Admin: 02/26/18 05:01 Dose: 650 mg Acetaminophen (Tylenol 650mg/20.3ml Solution Ud) 650 mg PO Q6H PRN PRN Reason: Pain, moderate (4-7) Last Admin: 02/23/18 23:11 Dose: 650 mg Albuterol/Ipratropium (Duoneb 3 Mg/0.5 Mg (3 Ml) Ud) 3 ml IH [id number] [facility] Last Admin: 02/26/18 01:42 Dose: Not Given Amlodipine Besylate (Norvasc) 10 mg PO DAILY [facility] Last Admin: 02/25/18 10:04 Dose: 10 mg Atorvastatin Calcium (Lipitor) 20 mg PO DIN [facility] Last Admin: 02/25/18 17:35 Dose: 20 mg Ergocalciferol (Drisdol 50,000 Intl Units Cap) 1 cap PO Q7D [facility] Last Admin: 02/23/18 14:51 Dose: 1 cap Potassium Chloride 20 meq/Sodium Bicarbonate 50 meq/Dextrose/Sodium Chloride 1, 060 mls @ 80 mls/hr IV .[id number] [facility] Last Admin: 02/26/18 05:34 Dose: Not Given Iron Sucrose (Venofer) 100 mg IV QWK [facility] Metoprolol Tartrate (Lopressor) 25 mg PO BID [facility] Last Admin: 02/25/18 18:22 Dose: 25 mg Mupirocin (Bactroban Ointment) 0 gm TOP BID [facility] Last Admin: 02/25/18 17:37 Dose: Not Given Pantoprazole Sodium (Protonix Ec Tab) 40 mg PO 0600,1600 [facility] Last Admin: 02/26/18 05:01 Dose: 40 mg Vancomycin HCl (Vancocin 25 Mg/Ml (Oral Use)) 250 mg PO Q6 [facility] PRN Reason: Protocol Stop: 03/04/18 18:01 Last Admin: 02/26/18 05:01 Dose: 250 mg - Labs Labs: 02/25/18 05:15 02/25/18 05:10 - Constitutional Appears: Chronically Ill - Head Exam Head Exam: NORMAL INSPECTION - ENT Exam ENT Exam: Mucous Membranes Moist - Neck Exam Neck Exam: absent: Lymphadenopathy, Meningismus - Respiratory Exam Respiratory Exam: Decreased Breath Sounds - Cardiovascular Exam Cardiovascular Exam: +S1, +S2 - GI/Abdominal Exam GI & Abdominal Exam: Soft. absent: Tenderness Assessment and Plan - Assessment and Plan (Free Text) Plan: Assessment C. diff. associated diarrhea history of right 1st toe gangrene with no evidence of active infection, as well gangrene on other toes of both feet peripheral vascular disease with necrotic toes and ulceration bilaterally, S/P revascularization consider HCAP, bilateral, clinically improving acute encephalopathy, etiology to be determined, now resolved history of Right foot cellulitis with right hallux gangrene Peripheral vascular disease HTN Plan continue PO Vancomycin day 4 to complete 10-14 days Podiatry doing local wound care for the feet
[2018-02-26] MEDS: Mupirocin 2% Ointment 15 GM TUBE TOP SCH ×2 (12:16→17:13)
[2018-02-26] MEDS ORDERED: Darbepoetin Alfa 60 mcg/ml Inj SC ONE (12:18)
[2018-02-26] MEDS: Cilostazol 100 mg Tab UD PO SCH (17:11)
--- NOTE | 2018-02-26 17:41 | PN ---
DATE: 02/26/2018 SUBJECTIVE: The patient is seen, lying in bed. He is awake, he is alert. He complains of pain in his feet. He denies any nausea. He denies any abdominal pain. He denies any shortness of breath. PHYSICAL EXAMINATION: GENERAL: Elderly male lying in bed. VITAL SIGNS: Blood pressure 161/85, heart rate 67, respiratory rate 18, temperature 97.5. HEENT: Normocephalic, atraumatic, positive pallor. NECK: Supple, no JVD. LUNGS: Bilateral equal air entry, bilateral equal expansion, no rales. CARDIAC: S1 and S2, regular rate and rhythm, no murmur, no rub. ABDOMEN: Soft, nondistended, nontender, bowel sounds present. EXTREMITIES: Dressing of both feet. INTAKE AND OUTPUT: 1100/450 LABORATORY DATA: WBC 19.5, hemoglobin 8, hematocrit 24.5, and platelets 373. Sodium 139, potassium 4.1, chloride 107, CO2 of 22. BUN 58, creatinine 3.8. Glucose 98. Calcium 7.3, phosphorus 3.1, magnesium 1.5, albumin 2.6, corrected calcium is 8.3. Cultures, no growth. C. diff negative. CURRENT MEDICATIONS: Bactroban ointment, Drisdol, DuoNeb, Lipitor, Lopressor, amlodipine, IV fluids with sodium bicarbonate, Protonix, Tylenol, vancomycin, and Venofer 100 every week. ASSESSMENT: 1. Stable chronic kidney disease stage IV, resolved acute kidney injury. 2. Severe anemia, anemia of chronic disease, chronic infection plus chronic kidney disease. 3. Hypocalcemia secondary to renal insufficiency, secondary hyperparathyroidism. 4. Malnutrition. 5. Hypertension. 6. Peripheral arterial disease. 7. Gangrene of her foot. PLAN: 1. Continue vitamin D. 2. Add Hectorol 0.5 mcg daily. 3. Oral calcium. 4. Aranesp 60 mcg today. 5. Consider blood transfusion. 6. Continue IV fluids since p.o. intake is poor. 7. Continue antibiotics as per ID recommendations, dose for creatinine clearance about 30 mL/min. Latrice Holder MD [facility] # [id number]
--- NOTE | 2018-02-26 18:00 | PN ---
DATE: 02/26/2018 PULMONARY PROGRESS NOTE REFERRING PHYSICIAN: Shivani Walters MD SUBJECTIVE: He is lying in the bed, head at 45 degrees. He does not have a very good appetite. He does not eat much. No headache, no rhinitis. Has occasional cough. No nausea. No vomiting. No diarrhea. Has a bilateral lower extremity ischemia with pain. OBJECTIVE: GENERAL: In no acute distress. VITAL SIGNS: Temperature is 98, heart rate 71, respiratory rate 18, blood pressure 161/85, pulse ox 95% on room air. HEENT: Moist mucous membrane. Crowded airway. Mallampati score is 4. NECK: Supple. No JVD. LUNGS: Have fair airflow with rhonchi. HEART: S1 and S2. ABDOMEN: Soft, nontender. No organomegaly. EXTREMITIES: Has ischemic change in both feet toes. Tender to touch. Nonhealing ulcer. MEDICATIONS: He is on Bactroban ointment to the affected area, calcium carbonate 600 mg daily, vitamin D 50,000 units every 7 days, DuoNeb every 6 hour, Lipitor 20 mg daily, metoprolol tartrate 25 mg twice a day, Norvasc 10 mg daily, IV fluids with bicarbonate, Protonix 40 mg twice a day, Tylenol p.r.n. basis, vancomycin 250 mg every 6 hours, Venofer 100 mg weekly. LABORATORY DATA: Shows hemoglobin 8.1, hematocrit 24.5, WBC 19.5, platelet is 373. Sodium 139, potassium 4.1, chloride 107, bicarbonate 22, BUN 58, creatinine 2.8, calcium 7.3, magnesium 1.5. AST is 14, ALT 19, alkaline phosphatase is 115. Albumin is 2.6. His stool culture had a coag-negative staph. Chest x-ray done yesterday shows there is severe vascular congestion and perihilar infiltrates. IMPRESSION AND PLAN: Chronic obstructive lung disease, renal failure, peripheral vascular disease, multiple pressure ulcers, pulmonary hypertension, cardiac diastolic dysfunction, ischemic toes. Pulmonary point of view, doing okay. Keep head at 45 degrees. Bronchodilator, aspiration precaution. Antibiotics as per Infectious Diseases. The patient on a peripheral vasodilators, gastric prophylaxis already. We will add Pletal. Thank you and we will follow with you. Jt Hayden MD [facility] # [id number]
--- NOTE | 2018-02-26 22:46 | PN ---
DATE: 02/26/2018 SUBJECTIVE: Patient is seen and examined at the bedside on 02/26/2018. Looking comfortable. No nausea, vomiting or diarrhea. No hematuria. No hematochezia. No swelling of the legs. No chest pain. No palpitation. No headache. No dizziness, but still having pain in the feet, and both feet have gangrenous changes. PHYSICAL EXAMINATION: VITAL SIGNS: Temperature of 98, heart rate 71, respiratory rate of 18, blood pressure 150/85, pulse oximetry 95% on room air. HEENT: Head normocephalic, atraumatic. Eyes: PERRLA. Extraocular muscles intact. Conjunctivae clear. Nose: Patent. Mucous membrane moist. NECK: Supple. No carotid bruit. No JVD or thyromegaly. CHEST: Bilaterally symmetrical. HEART: S1 and S2 positive. LUNGS: Have fair airflow with rhonchi. ABDOMEN: Soft, nontender. No organomegaly. EXTREMITIES: Has ischemic change in both toes. Tender to touch, and feet are swollen. Nonhealing ulcers. Toes are blackish. MEDICATIONS: Bactroban ointment to the affected area, calcium carbonate, vitamin D, DuoNeb, Lipitor, metoprolol, Norvasc, Protonix, vancomycin, Venofer. LABORATORY DATA: Hemoglobin 8.1, hematocrit 24.5, white blood cells 19.5, platelets 373. Sodium 139, potassium 4.1, BUN 58, creatinine 2.8. AST is 14, ALT 19. ASSESSMENT AND PLAN: Chronic obstructive lung disease, renal failure, peripheral vascular disease, multiple pressure ulcers, pulmonary hypertension, cardiac diastolic dysfunction, ischemic changes, history of chronic obstructive pulmonary disease. Continue bronchodilators, aspiration precautions, antibiotics as per Infectious Disease. Discussion done with the patient and with Dr. Renaldo Rolle. Gastrointestinal and deep vein thrombosis prophylaxis. We will follow. Shivani Walters MD
[2018-02-27] MEDS: Vancomycin 25 MG/ML PO SCH ×5 (00:17→23:05)
[2018-02-27] MEDS: Albuterol-Ipratrop 3 mg / 0.5 (3 ml) UD IH SCH ×4 (01:19→21:53)
[2018-02-27] MEDS: Pantoprazole 40 mg EC Tab PO SCH ×2 (05:14→17:20)
[2018-02-27 10:25] LABS: HEMOGLOBIN 9.1 g/dL (14.0-18.0); MEAN CELL VOLUME 84.3 fl (80.0-105.0); MEAN CORPUSCULAR HEMOGLOBIN 28.1 pg (25.0-35.0); MEAN CORPUSCULAR HGB CONC 33.3 g/dl (31.0-37.0); MEAN PLATELET VOLUME 9.6 fl (7.0-11.0); RBC 3.24 10^6/uL (3.5-6.1); RED CELL DISTRIBUTION WIDTH 16.2 % (11.5-14.5); WHITE BLOOD COUNT 18.2 10^3/ul (4.5-11.0)
[2018-02-27 10:33] LABS: CALCIUM 7.5 mg/dL (8.4-10.5)
[2018-02-27] MEDS: Cilostazol 100 mg Tab UD PO SCH ×2 (11:31→17:13)
[2018-02-27] MEDS: Mupirocin 2% Ointment 15 GM TUBE TOP SCH ×2 (12:35→17:09)
--- NOTE | 2018-02-27 14:02 | CP.PCM.PN ---
Subjective - Date & Time of Evaluation Date of Evaluation: 02/27/18 Time of Evaluation: 11:30 - Subjective Subjective: No diarrhea, no fevers, not in distress. Objective - Vital Signs/Intake and Output Vital Signs (last 24 hours): Temp Pulse Resp BP Pulse Ox 97.2 F L 63 18 140/80 96 02/27/18 06:00 02/27/18 06:00 02/27/18 06:00 02/27/18 06:00 02/27/18 06:00 Intake and Output: 02/27/18 02/27/18 06:59 18:59 Intake Total 180 Output Total 200 Balance -20 - Medications Medications: Current Medications Acetaminophen (Tylenol 325mg Tab) 650 mg PO Q6H PRN PRN Reason: Pain, severe (8-10) Last Admin: 02/26/18 05:01 Dose: 650 mg Acetaminophen (Tylenol 650mg/20.3ml Solution Ud) 650 mg PO Q6H PRN PRN Reason: Pain, moderate (4-7) Last Admin: 02/23/18 23:11 Dose: 650 mg Albuterol/Ipratropium (Duoneb 3 Mg/0.5 Mg (3 Ml) Ud) 3 ml IH [id number] [facility] Last Admin: 02/27/18 07:29 Dose: Not Given Amlodipine Besylate (Norvasc) 10 mg PO DAILY [facility] Last Admin: 02/26/18 12:10 Dose: 10 mg Atorvastatin Calcium (Lipitor) 20 mg PO DIN [facility] Last Admin: 02/26/18 17:11 Dose: 20 mg Calcium Carbonate (Caltrate) 600 mg PO DAILY [facility] Last Admin: 02/26/18 13:50 Dose: 600 mg Cilostazol (Pletal) 100 mg PO BID [facility] Last Admin: 02/26/18 17:11 Dose: 100 mg Doxercalciferol (Hectorol) 0.5 mcg PO DAILY [facility] Last Admin: 02/26/18 13:50 Dose: 0.5 mcg Ergocalciferol (Drisdol 50,000 Intl Units Cap) 1 cap PO Q7D [facility] Last Admin: 02/23/18 14:51 Dose: 1 cap Potassium Chloride 20 meq/Sodium Bicarbonate 50 meq/Dextrose/Sodium Chloride 1, 060 mls @ 80 mls/hr IV .[id number] [facility] Last Admin: 02/26/18 23:46 Dose: 80 mls/hr Iron Sucrose (Venofer) 100 mg IV QWK [facility] Metoprolol Tartrate (Lopressor) 25 mg PO BID [facility] Last Admin: 02/26/18 17:11 Dose: 25 mg Mupirocin (Bactroban Ointment) 0 gm TOP BID [facility] Last Admin: 02/26/18 17:13 Dose: 1 applic Pantoprazole Sodium (Protonix Ec Tab) 40 mg PO 0600,1600 [facility] Last Admin: 02/27/18 05:14 Dose: 40 mg Pentoxifylline (Pentoxil) 400 mg PO TID [facility] Last Admin: 02/26/18 17:11 Dose: 400 mg Vancomycin HCl (Vancocin 25 Mg/Ml (Oral Use)) 250 mg PO Q6 [facility] PRN Reason: Protocol Stop: 03/04/18 18:01 Last Admin: 02/27/18 05:14 Dose: 250 mg - Labs Labs: 02/26/18 06:00 02/26/18 06:00 - Constitutional Appears: Chronically Ill - Head Exam Head Exam: NORMAL INSPECTION - Respiratory Exam Respiratory Exam: Decreased Breath Sounds - Cardiovascular Exam Cardiovascular Exam: +S1, +S2 - GI/Abdominal Exam GI & Abdominal Exam: Soft. absent: Tenderness - Extremities Exam Additional comments: both feet with dressings in place Assessment and Plan - Assessment and Plan (Free Text) Plan: Assessment C. diff. associated diarrhea, clinically improving history of right 1st toe gangrene with no evidence of active infection, as well gangrene on other toes of both feet peripheral vascular disease with necrotic toes and ulceration bilaterally, S/P revascularization consider HCAP, bilateral, clinically improving acute encephalopathy, etiology to be determined, now resolved history of Right foot cellulitis with right hallux gangrene Peripheral vascular disease HTN Plan continue PO Vancomycin day 5 to complete 10-14 days Podiatry doing local wound care for the feet
--- NOTE | 2018-02-27 17:04 | CP.PCM.PN ---
<Ish Mejia - Last Filed: 02/27/18 16:57> Subjective - Date & Time of Evaluation Date of Evaluation: 02/27/18 Time of Evaluation: 16:57 - Subjective Subjective: Podiatry Progress Note- Dr. Pollard 77 M seen and evaluated at bedside for nonhealing ischemic gangrenous toes of b/ l feet. Patient is seen resting comfortably in bed, in NAD, and AA0x3. Denies acute overnight events. Patient reports pain to b/l feet R > L. Reports pain worse with pressure. Denies N/V/F/C/CP/SOB. No new pedal complaints. Patient seen with multipodus boots on. Objective - Vital Signs/Intake and Output Vital Signs (last 24 hours): Temp Pulse Resp BP Pulse Ox 97.6 F 84 18 150/89 94 L 02/27/18 13:00 02/27/18 13:00 02/27/18 13:00 02/27/18 13:00 02/27/18 13:00 Intake and Output: 02/27/18 02/27/18 06:59 18:59 Intake Total 180 780 Output Total 200 Balance -20 780 - Medications Medications: Current Medications Acetaminophen (Tylenol 325mg Tab) 650 mg PO Q6H PRN PRN Reason: Pain, severe (8-10) Last Admin: 02/26/18 05:01 Dose: 650 mg Acetaminophen (Tylenol 650mg/20.3ml Solution Ud) 650 mg PO Q6H PRN PRN Reason: Pain, moderate (4-7) Last Admin: 02/23/18 23:11 Dose: 650 mg Albuterol/Ipratropium (Duoneb 3 Mg/0.5 Mg (3 Ml) Ud) 3 ml IH [id number] [facility] Last Admin: 02/27/18 13:19 Dose: Not Given Amlodipine Besylate (Norvasc) 10 mg PO DAILY [facility] Last Admin: 02/27/18 11:27 Dose: 10 mg Atorvastatin Calcium (Lipitor) 20 mg PO DIN [facility] Last Admin: 02/26/18 17:11 Dose: 20 mg Calcium Carbonate (Caltrate) 600 mg PO DAILY [facility] Last Admin: 02/27/18 11:30 Dose: 600 mg Cilostazol (Pletal) 100 mg PO BID [facility] Last Admin: 02/27/18 11:31 Dose: 100 mg Doxercalciferol (Hectorol) 0.5 mcg PO DAILY [facility] Last Admin: 02/27/18 11:27 Dose: 0.5 mcg Ergocalciferol (Drisdol 50,000 Intl Units Cap) 1 cap PO Q7D [facility] Last Admin: 02/23/18 14:51 Dose: 1 cap Potassium Chloride 20 meq/Sodium Bicarbonate 50 meq/Dextrose/Sodium Chloride 1, 060 mls @ 80 mls/hr IV .[id number] [facility] Last Admin: 02/26/18 23:46 Dose: 80 mls/hr Iron Sucrose (Venofer) 100 mg IV QWK [facility] Metoprolol Tartrate (Lopressor) 25 mg PO BID [facility] Last Admin: 02/27/18 11:30 Dose: 25 mg Mupirocin (Bactroban Ointment) 0 gm TOP BID [facility] Last Admin: 02/27/18 12:35 Dose: 1 applic Pantoprazole Sodium (Protonix Ec Tab) 40 mg PO 0600,1600 [facility] Last Admin: 02/27/18 05:14 Dose: 40 mg Pentoxifylline (Pentoxil) 400 mg PO TID [facility] Last Admin: 02/27/18 11:30 Dose: 400 mg Vancomycin HCl (Vancocin 25 Mg/Ml (Oral Use)) 250 mg PO Q6 [facility] PRN Reason: Protocol Stop: 03/04/18 18:01 Last Admin: 02/27/18 11:26 Dose: 250 mg - Labs Labs: 02/27/18 10:15 02/27/18 10:15 - Constitutional Appears: Well, Non-toxic, No Acute Distress - Head Exam Head Exam: ATRAUMATIC, NORMOCEPHALIC - Extremities Exam Additional comments: Bilateral LE focused exam Vasc: DP and PT unpalpable, temperature gradient cool to cool, no edema noted to the LE, CFT delayed to the digits Derm: right hallux wound with demarcated dry eschar at distal medial tuft; 4th and 5th toes with dry demarcated eschars at distal rojelio as well, no fluctanance , no abscess, no clinical signs of infection, left foot digit 3 and 4 appear hyperpigmented and gangrenous with no open lesions, well demarcation noted. No drainage, no erythema, no streaking, no clinical suspicion of active infection. Neuro: Epicritic and protective sensation grossly diminished b/l Ortho: severe pain noted with light palpation to the right hallux and generalized forefoot, mild pain on the left forefoot, patient unable to MM secondary to guarding. - Neurological Exam Neurological Exam: Alert, Awake, Oriented x3 - Psychiatric Exam Psychiatric exam: Normal Affect, Normal Mood Assessment and Plan - Assessment and Plan (Free Text) Assessment: 77 M seen and evaluated at bedside for nonhealing ischemic gangrenous toes of b/ l feet Plan: Patient seen and evaluated Plan discussed with attending Dr. Pollard Afebrile, WBC 18.2; feet are unlikely source of infection given lack of clinical signs of infection Wound cx toe: Coag Neg Staph X-rays on 02/24/18- WNL no bony pathology noted, no OM Duplex RLE arterial US- Impression: 1. New left iliac occlusive disease 2. Right calf PVR waveform does not augment. Suggest recent right SFA intervention re-occluded 3. Severe bilateral tibial disease Necrotic changes to patient's toes painted with betadine and left open to air Multipodus boots kept in place No plans for surgical intervention at this time Podiatry will continue to follow while patient in house <Jason Pollard - Last Filed: 02/27/18 18:15> Objective - Vital Signs/Intake and Output Vital Signs (last 24 hours): Temp Pulse Resp BP Pulse Ox 97.6 F 66 18 121/65 94 L 02/27/18 13:00 02/27/18 17:13 02/27/18 13:00 02/27/18 17:13 02/27/18 13:00 Intake and Output: 02/27/18 02/27/18 06:59 18:59 Intake Total 180 780 Output Total 200 Balance -20 780 - Medications Medications: Current Medications Acetaminophen (Tylenol 325mg Tab) 650 mg PO Q6H PRN PRN Reason: Pain, severe (8-10) Last Admin: 02/27/18 17:31 Dose: 650 mg Acetaminophen (Tylenol 650mg/20.3ml Solution Ud) 650 mg PO Q6H PRN PRN Reason: Pain, moderate (4-7) Last Admin: 02/23/18 23:11 Dose: 650 mg Albuterol/Ipratropium (Duoneb 3 Mg/0.5 Mg (3 Ml) Ud) 3 ml IH [id number] [facility] Last Admin: 02/27/18 13:19 Dose: Not Given Amlodipine Besylate (Norvasc) 10 mg PO DAILY [facility] Last Admin: 02/27/18 11:27 Dose: 10 mg Atorvastatin Calcium (Lipitor) 20 mg PO DIN [facility] Last Admin: 02/27/18 17:13 Dose: 20 mg Calcium Carbonate (Caltrate) 600 mg PO DAILY [facility] Last Admin: 02/27/18 11:30 Dose: 600 mg Cilostazol (Pletal) 100 mg PO BID [facility] Last Admin: 02/27/18 17:13 Dose: 100 mg Doxercalciferol (Hectorol) 0.5 mcg PO DAILY [facility] Last Admin: 02/27/18 11:27 Dose: 0.5 mcg Ergocalciferol (Drisdol 50,000 Intl Units Cap) 1 cap PO Q7D [facility] Last Admin: 02/23/18 14:51 Dose: 1 cap Potassium Chloride 20 meq/Sodium Bicarbonate 50 meq/Dextrose/Sodium Chloride 1, 060 mls @ 80 mls/hr IV .[id number] [facility] Last Admin: 02/27/18 17:20 Dose: 80 mls/hr Iron Sucrose (Venofer) 100 mg IV QWK [facility] Metoprolol Tartrate (Lopressor) 25 mg PO BID [facility] Last Admin: 02/27/18 17:13 Dose: 25 mg Pantoprazole Sodium (Protonix Ec Tab) 40 mg PO 0600,1600 [facility] Last Admin: 02/27/18 17:20 Dose: 40 mg Pentoxifylline (Pentoxil) 400 mg PO TID [facility] Last Admin: 02/27/18 14:10 Dose: Not Given Tramadol HCl (Ultram) 50 mg PO TID [facility] Last Admin: 02/27/18 18:14 Dose: 50 mg Vancomycin HCl (Vancocin 25 Mg/Ml (Oral Use)) 250 mg PO Q6 [facility] PRN Reason: Protocol Stop: 03/04/18 18:01 Last Admin: 02/27/18 17:10 Dose: 250 mg - Labs Labs: 02/27/18 10:15 02/27/18 10:15 Attending/Attestation - Attestation I have personally seen and examined this patient.: Yes I have fully participated in the care of the patient.: Yes I have reviewed all pertinent clinical information, including history, physical exam and plan: Yes
[2018-02-27] MEDS: [UNRECOGNIZED DRUG - OTHER] IV SCH (17:20)
[2018-02-27] MEDS: SODIUM BICARBONATE IV SCH (17:20)
[2018-02-27] MEDS: POTASSIUM CHLORIDE IV SCH (17:20)
[2018-02-27] MEDS ORDERED: HYDROmorphone 0.5 mg/0.5 ml ISec IVP PRN (18:15)
--- NOTE | 2018-02-27 21:17 | PN ---
DATE: 02/27/2018 SUBJECTIVE: The patient is seen lying in bed. He is awake. He is alert. He complains of pain in his feet, right more than left. He denies any nausea, vomiting. He denies any shortness of breath. PHYSICAL EXAMINATION: GENERAL: Thinly built elderly male lying in bed. VITAL SIGNS: Blood pressure 121/65, heart rate 66, respiratory rate 18, temperature 97.6. HEENT: Normocephalic, atraumatic, positive pallor. NECK: Supple, no JVD. LUNGS: Bilateral equal air entry, bilateral equal expansion. CARDIAC: S1 and S2, regular rate and rhythm, no murmur, no rub. ABDOMEN: Soft, nondistended, nontender. Bowel sounds present. EXTREMITIES: Gangrene of multiple toes on the right foot, dressing of the right foot, and dressing of the left foot. INTAKE AND OUTPUT: 780/not charted. LABORATORY DATA: WBC 18, hemoglobin 9, hematocrit 27, platelets 387. Sodium 138, potassium 4.2, chloride 106, CO2 21, BUN 50, creatinine 3.8, glucose 108, calcium 7.5, phosphorus 3.1, magnesium 1.5, albumin 2.6. Wound culture, coagulase-negative staph. MEDICATIONS: List reviewed. ASSESSMENT: 1. Severe peripheral vascular disease. 2. Gangrene of multiple toes on the right foot, plan for amputation. 3. Stable chronic kidney disease stage IV. 4. Anemia of chronic kidney disease. 5. Secondary hyperparathyroidism. 6. Controlled phosphorus. 7. Hypocalcemia. 8. Cachexia. PLAN: 1. Agree with plan for amputation. 2. Push p.o. intake. 3. Increase protein intake orally. 4. Continue vitamin D. 5. Continue calcium supplementation. 6. Avoid nephrotoxins. 7. of antibiotics for creatinine clearance about 30 mL/minute. Latrice Holder MD
--- NOTE | 2018-02-27 21:41 | CP.PCM.CON ---
History of Present Illness - History of Present Illness History of Present Illness: Vascular Surgery note for Dr. Hudson Consulted for: chronic wounds of the BL toes and PAD Patient is a 77M with wounds on his BL toes since September (5 months ago). Patient no longer walks and is basically bed bound at [facility]. Has a 60 year history of tobacco smoking which he quit this past September. PMH includes PAD , CAD, diastolic CHF, CKD type IV, GI bleed, and HTN. Patient states he has had the wounds since September, and that they are very pain, but denies any any fevers, chills, foul smelling fluid from the wounds. He underwent an angioplasty of the right SFA and iliac with stent in October [address] Renaldo Rolle, IR. Pt has been being treated with local wound care by podiatry since but wounds have not improved. Patient denies any chest pain, SOB, or any other symptoms, though he is currently being treated for suspected c. diff. BL LE US showed new onset left iliac occlusive disease, right calf PVRs non-augmenting suspicious for re-occlusion of the SFA, severe BL tibial disease with blunted right ankle and metatarsal waveforms, and flat left ankle waveforms. Vascular surgery was consulted for evaluation and possible amputation PMH; PAD , CAD, diastolic CHF, CKD type IV, GI bleed, HTN, esophageal ulcers, secondary hyperparathyroidism PSH: right hip surgery, lower extremity angioplasty All: NKDA Social: smoking for 60 years, quit 5 months ago. Occasional ETOH, denies illicit drugs Review of Systems - Review of Systems All systems: reviewed and no additional remarkable complaints except (as per HPI ) Past Patient History - Infectious Disease Hx of Infectious Diseases: None - Past Medical History & Family History Past Medical History?: Yes Past Family History: Reviewed and not pertinent - Past Social History Smoking Status: Former Smoker Alcohol: Occasional Drugs: Denies Home Situation {Lives}: [facility] - CARDIAC Hx Cardiac Disorders: Yes Hx Congestive Heart Failure: Yes Hx Hypercholesterolemia: No Hx Hypertension: Yes - PULMONARY Hx Chronic Obstructive Pulmonary Disease (COPD): No - NEUROLOGICAL HX Cerebrovascular Accident: No - HEENT Hx HEENT Problems: No Hx Blind: No Hx Cataracts: No Hx Deafness: No Hx Difficulty Chewing: Yes (poor fitting dentures) Hx Epistaxis: No Hx Glaucoma: No Hx Macular Degeneration: No - RENAL Hx Renal Failure: Yes - ENDOCRINE/METABOLIC Hx Diabetes Mellitus Type 1: No Hx Diabetes Mellitus Type 2: No Hx Hypothyroidism: No - HEMATOLOGICAL/ONCOLOGICAL Hx Blood Disorders: Yes Hx AIDS: No Hx Anemia: Yes Hx Cancer: No Hx Chemotherapy: No Hx Cirrhosis: No Hx Hemophilia: No Hx Hepatitis A: No Hx Hepatitis B: No Hx Hepatitis C: No Hx Human Immunodeficiency Virus (HIV): No Hx Metastesis: No Hx Shingles: No Hx Sickle Cell Disease: No Hx Unexplained Bleeding: No - INTEGUMENTARY Hx Dermatological Problems: Yes Hx Basil Cell: No Hx Eczema: No Hx Melanoma: No Hx Psoriasis: No Hx Squamous Cell: No Other/Comment: dry skin - MUSCULOSKELETAL/RHEUMATOLOGICAL Hx Arthritis: No - GASTROINTESTINAL Hx Gastrointestinal Disorders: No Hx Colostomy: No Hx Crohn's Disease: No Hx Diverticulitis: No Hx Gall Bladder Disease: No Hx Gastroesophageal Reflux: No Hx Ileostomy: No Hx Liver Failure: No Hx Pancreatitis: No HX Swallowing Problems: No Hx Ulcer: No - GENITOURINARY/GYNECOLOGICAL Hx Genitourinary Disorders: No Hx Hematuria: No Hx Incontinence: Yes Hx Prostate Problems: No Hx Sexually Transmitted Disorders: No Hx Urinary Tract Infection: No - PSYCHIATRIC Hx Substance Use: No - SURGICAL HISTORY Hx Surgeries: No Hx Amputation: No Hx Appendectomy: No Hx Cardiac Catheterization: No Hx Cholecystectomy: No Hx Coronary Stent: No Hx Gastric Bypass Surgery: No Hx Hysterectomy: No Hx Joint Replacement: No Hx Kidney Transplant: No Hx Liver Transplant: No Hx Mastectomy: No Hx Musculoskeletal Surgery: No Hx Open Heart Surgery: No Hx Orthopedic Surgery: No Hx Splenectomy: No Hx Valve Replacement: No Other/Comment: Right big toe and 3rd toe necrosis - ANESTHESIA Hx Anesthesia Reactions: No Hx Malignant Hyperthermia: No Meds Allergies/Adverse Reactions: Allergies Allergy/AdvReac Type Severity Reaction Status Date / Time No Known Allergies Allergy Verified 12/25/17 21:36 - Medications Medications: Current Medications Acetaminophen (Tylenol 325mg Tab) 650 mg PO Q6H PRN PRN Reason: Pain, severe (8-10) Last Admin: 02/27/18 17:31 Dose: 650 mg Acetaminophen (Tylenol 650mg/20.3ml Solution Ud) 650 mg PO Q6H PRN PRN Reason: Pain, moderate (4-7) Last Admin: 02/23/18 23:11 Dose: 650 mg Albuterol/Ipratropium (Duoneb 3 Mg/0.5 Mg (3 Ml) Ud) 3 ml IH [id number] [facility] Last Admin: 02/27/18 13:19 Dose: Not Given Amlodipine Besylate (Norvasc) 10 mg PO DAILY [facility] Last Admin: 02/27/18 11:27 Dose: 10 mg Atorvastatin Calcium (Lipitor) 20 mg PO DIN [facility] Last Admin: 02/27/18 17:13 Dose: 20 mg Calcium Carbonate (Caltrate) 600 mg PO DAILY [facility] Last Admin: 02/27/18 11:30 Dose: 600 mg Cilostazol (Pletal) 100 mg PO BID [facility] Last Admin: 02/27/18 17:13 Dose: 100 mg Doxercalciferol (Hectorol) 0.5 mcg PO DAILY [facility] Last Admin: 02/27/18 11:27 Dose: 0.5 mcg Ergocalciferol (Drisdol 50,000 Intl Units Cap) 1 cap PO Q7D [facility] Last Admin: 02/23/18 14:51 Dose: 1 cap Hydromorphone HCl (Dilaudid) 0.25 mg IVP Q6 PRN PRN Reason: Pain, severe (8-10) Potassium Chloride 20 meq/Sodium Bicarbonate 50 meq/Dextrose/Sodium Chloride 1, 060 mls @ 80 mls/hr IV .[id number] [facility] Last Admin: 02/27/18 17:20 Dose: 80 mls/hr Iron Sucrose (Venofer) 100 mg IV QWK [facility] Metoprolol Tartrate (Lopressor) 25 mg PO BID [facility] Last Admin: 02/27/18 17:13 Dose: 25 mg Pantoprazole Sodium (Protonix Ec Tab) 40 mg PO 0600,1600 [facility] Last Admin: 02/27/18 17:20 Dose: 40 mg Pentoxifylline (Pentoxil) 400 mg PO TID [facility] Last Admin: 02/27/18 18:36 Dose: 400 mg Tramadol HCl (Ultram) 50 mg PO TID [facility] Last Admin: 02/27/18 18:14 Dose: 50 mg Vancomycin HCl (Vancocin 25 Mg/Ml (Oral Use)) 250 mg PO Q6 [facility] PRN Reason: Protocol Stop: 03/04/18 18:01 Last Admin: 02/27/18 17:10 Dose: 250 mg Physical Exam - Constitutional Appears: Non-toxic, No Acute Distress, Cachectic, Chronically Ill - Head Exam Head Exam: ATRAUMATIC, NORMOCEPHALIC - Eye Exam Eye Exam: Normal appearance. absent: Conjunctival injection, Scleral icterus - ENT Exam ENT Exam: Mucous Membranes Moist, Normal Oropharynx - Respiratory Exam Respiratory Exam: NORMAL BREATHING PATTERN. absent: Accessory Muscle Use, Respiratory Distress - Cardiovascular Exam Cardiovascular Exam: RRR - GI/Abdominal Exam GI & Abdominal Exam: Soft. absent: Distended, Tenderness - Extremities Exam Extremities exam: Negative for: calf tenderness, pedal edema Additional comments: RLE: dopplerable signal popliteal and posterior tibial artery, non-dopplerable DP LLE: 2+ palpable popliteal artery, dopplerable posterior tibialis, non- dopplerable DP BL feet warm, normal color, heels intact BL feet in dressings placed by podiatry, clean, dry, intact, no foul odors - Neurological Exam Neurological exam: Alert, Oriented x3 - Psychiatric Exam Psychiatric exam: Normal Affect, Normal Mood - Skin Skin Exam: Dry, Normal Color, Warm Results - Vital Signs Recent Vital Signs: Last Vital Signs Temp 97.6 F 02/27/18 13:00 Pulse 66 02/27/18 17:13 Resp 18 02/27/18 13:00 BP 121/65 02/27/18 17:13 Pulse Ox 94 L 02/27/18 13:00 - Labs Result Diagrams: 02/27/18 10:15 02/27/18 10:15 Labs: Laboratory Results - last 24 hr 02/27/18 02/27/18 10:15 10:15 WBC 18.2 H RBC 3.24 L Hgb 9.1 L Hct 27.3 L MCV 84.3 MCH 28.1 MCHC 33.3 RDW 16.2 H Plt Count 387 MPV 9.6 Sodium 138 Potassium 4.2 Chloride 106 Carbon Dioxide 21 Anion Gap 15 BUN 50 H Creatinine 3.8 H Est GFR ( Amer) 19 Est GFR (Non-Af Amer) 16 Random Glucose 108 Calcium 7.5 L Assessment & Plan - Assessment and Plan (Free Text) Assessment: 77M with PAD and 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 May warrant an amputation, but will discuss with Dr. Hudson--further recs per her Concepcion Warren, PGY2
--- NOTE | 2018-02-27 21:59 | PN ---
DATE: 02/27/2018 PULMONARY PROGRESS NOTE REFERRING PHYSICIAN: Shivani Walters MD SUBJECTIVE: The patient is lying in the bed, head at 45 degrees. Night was unremarkable. Still have a very poor appetite. Occasional cough. No chest pain. No nausea. No vomiting. Has bilateral lower extremity pain, was told he going under BKA procedure tomorrow. OBJECTIVE: GENERAL: In no acute distress. VITAL SIGNS: Temperature is 98, heart rate is 66, respiratory rate is 18, blood pressure 121/65, pulse ox is 94% on room air. HEENT: Moist mucous membrane. No ulcer or thrush. NECK: Supple. No JVD. LUNGS: Has a fair airflow with few rhonchi. HEART: S1 and S2. ABDOMEN: Soft, nontender. No organomegaly. EXTREMITIES: Has ischemic toes of the both feet. There is no leg swelling. Tender to touch. NEUROLOGICAL: Awake and alert. Follows simple command. MEDICATIONS: He is on calcium carbonate 600 mg daily, vitamin D 50,000 units every 7 days, DuoNeb every 6 hour, receiving Lipitor 20 mg daily, metoprolol tartrate 25 mg twice a day, Norvasc 10 mg daily, pentoxifylline 400 mg three times a day, Pletal 100 mg twice a day, IV fluid with bicarbonate 80 mL per hour, Protonix 40 mg twice a day, Tylenol p.r.n. basis, vancomycin 250 mg every 6 hours, Venofer 100 mg weekly. LABORATORY DATA: Shows hemoglobin 9.1, hematocrit 27.3, WBC 18.2, platelet count is 387. Sodium 138, potassium 4.2, chloride 106, bicarbonate 21, BUN 50, creatinine 3.8, calcium is 7.5. Microbiology: The wound culture has coag-negative staph. IMPRESSION AND PLAN: Chronic obstructive lung disease, renal failure, peripheral vascular disease, multiple pressure ulcers, pulmonary hypertension, cerebrovascular dysfunction, ischemic toe. Pulmonary point of view, he is doing okay. Continue antibiotics, bronchodilator, aspiration precautions. Will need cardiac clearance before surgery. Encourage p.o. intake. Continue vasodilator. Continue Pletal for now. Thank you and we will follow with you. Jt Hayden MD
[2018-02-28] MEDS: SODIUM BICARBONATE IV SCH ×2 (01:39→22:51)
[2018-02-28] MEDS: [UNRECOGNIZED DRUG - OTHER] IV SCH ×2 (01:39→22:51)
[2018-02-28] MEDS: POTASSIUM CHLORIDE IV SCH ×2 (01:39→22:51)
[2018-02-28] MEDS: Albuterol-Ipratrop 3 mg / 0.5 (3 ml) UD IH SCH ×5 (04:10→19:00)
[2018-02-28] MEDS: Pantoprazole 40 mg EC Tab PO SCH ×2 (06:13→17:14)
[2018-02-28] MEDS: Vancomycin 25 MG/ML PO SCH ×4 (06:13→23:14)
--- NOTE | 2018-02-28 08:10 | CP.PCM.PN ---
Subjective - Date & Time of Evaluation Date of Evaluation: 02/28/18 Time of Evaluation: 07:00 - Subjective Subjective: Patient seen and examined this AM. No adverse events overnight. Patient reports persistent pain but denies any fevers or chills Objective - Vital Signs/Intake and Output Vital Signs (last 24 hours): Temp Pulse Resp BP Pulse Ox 98.5 F 75 20 128/76 97 02/28/18 07:33 02/28/18 07:33 02/28/18 07:33 02/28/18 07:33 02/28/18 07:33 Intake and Output: 02/28/18 02/28/18 06:59 18:59 Intake Total 360 Balance 360 - Medications Medications: Current Medications Acetaminophen (Tylenol 325mg Tab) 650 mg PO Q6H PRN PRN Reason: Pain, severe (8-10) Last Admin: 02/27/18 17:31 Dose: 650 mg Acetaminophen (Tylenol 650mg/20.3ml Solution Ud) 650 mg PO Q6H PRN PRN Reason: Pain, moderate (4-7) Last Admin: 02/23/18 23:11 Dose: 650 mg Albuterol/Ipratropium (Duoneb 3 Mg/0.5 Mg (3 Ml) Ud) 3 ml IH [id number] [facility] Last Admin: 02/28/18 04:10 Dose: Not Given Amlodipine Besylate (Norvasc) 10 mg PO DAILY [facility] Last Admin: 02/27/18 11:27 Dose: 10 mg Atorvastatin Calcium (Lipitor) 20 mg PO DIN [facility] Last Admin: 02/27/18 17:13 Dose: 20 mg Calcium Carbonate (Caltrate) 600 mg PO DAILY [facility] Last Admin: 02/27/18 11:30 Dose: 600 mg Cilostazol (Pletal) 100 mg PO BID [facility] Last Admin: 02/27/18 17:13 Dose: 100 mg Doxercalciferol (Hectorol) 0.5 mcg PO DAILY [facility] Last Admin: 02/27/18 11:27 Dose: 0.5 mcg Ergocalciferol (Drisdol 50,000 Intl Units Cap) 1 cap PO Q7D [facility] Last Admin: 02/23/18 14:51 Dose: 1 cap Hydromorphone HCl (Dilaudid) 0.25 mg IVP Q6 PRN PRN Reason: Pain, severe (8-10) Potassium Chloride 20 meq/Sodium Bicarbonate 50 meq/Dextrose/Sodium Chloride 1, 060 mls @ 80 mls/hr IV .[id number] [facility] Last Admin: 02/28/18 01:39 Dose: Not Given Iron Sucrose (Venofer) 100 mg IV QWK [facility] Metoprolol Tartrate (Lopressor) 25 mg PO BID [facility] Last Admin: 02/27/18 17:13 Dose: 25 mg Pantoprazole Sodium (Protonix Ec Tab) 40 mg PO 0600,1600 [facility] Last Admin: 02/28/18 06:13 Dose: 40 mg Pentoxifylline (Pentoxil) 400 mg PO TID [facility] Last Admin: 02/27/18 18:36 Dose: 400 mg Tramadol HCl (Ultram) 50 mg PO TID [facility] Last Admin: 02/27/18 18:14 Dose: 50 mg Vancomycin HCl (Vancocin 25 Mg/Ml (Oral Use)) 250 mg PO Q6 [facility] PRN Reason: Protocol Stop: 03/04/18 18:01 Last Admin: 02/28/18 06:13 Dose: 250 mg - Labs Labs: 02/27/18 10:15 02/27/18 10:15 - Constitutional Appears: Well, Non-toxic, No Acute Distress - Head Exam Head Exam: ATRAUMATIC, NORMOCEPHALIC - Eye Exam Eye Exam: Normal appearance. absent: Conjunctival injection, Scleral icterus - ENT Exam ENT Exam: Mucous Membranes Moist, Normal Oropharynx - Respiratory Exam Respiratory Exam: NORMAL BREATHING PATTERN. absent: Accessory Muscle Use, Respiratory Distress - Cardiovascular Exam Cardiovascular Exam: RRR - GI/Abdominal Exam GI & Abdominal Exam: Soft. absent: Distended, Tenderness - Extremities Exam Additional comments: Dry gangrene of the distal 5 digits on the right foot, dry gangrene of the distal 2nd and 3rd digits of the left foot BL non-dopplerable DP, strong signals BL TP - Neurological Exam Neurological Exam: Alert, Awake, Oriented x3 - Psychiatric Exam Psychiatric exam: Normal Affect, Normal Mood - Skin Skin Exam: Dry, Intact, Normal Color, Warm Additional comments: except as noted above Assessment and Plan - Assessment and Plan (Free Text) Assessment: 77M with PAD and chronic non-healing dry gangrene of the BL toes Plan: Continue to trend CBC Continue local wound care per podiatry Continue antibiotics per ID PRN pain medication PT Surgical intervention planning per Dr. Hudson, discussed patient with her. Patient will need cardiac, pulmonary, and nephrology clearance prior to any surgery Concepcion Warren, PGY2
--- NOTE | 2018-02-28 08:57 | CP.PCM.PN ---
<DanielKareem - Last Filed: 02/28/18 08:52> Subjective - Date & Time of Evaluation Date of Evaluation: 02/28/18 Time of Evaluation: 07:40 - Subjective Subjective: 77 year old male seen and evaluated at bedside for non-healing ischemic changes to toes of bilateral(b/l) feet. Patient seen and examined this AM, resting comfortably upon arrival. Denies acute overnight events. Patient reports pain to b/l feet R > L. Patient reports pain to his bilateral feet upon manipultation by outside sources. and worsens with worse with pressure. Denies N /V/F/C/CP/SOB. No new pedal complaints. Patient seen with multipodus boots on. He denies any fevers or chills Objective - Vital Signs/Intake and Output Vital Signs (last 24 hours): Temp Pulse Resp BP Pulse Ox 98.5 F 75 20 128/76 97 02/28/18 07:33 02/28/18 07:33 02/28/18 07:33 02/28/18 07:33 02/28/18 07:33 Intake and Output: 02/28/18 02/28/18 06:59 18:59 Intake Total 360 Balance 360 - Medications Medications: Current Medications Acetaminophen (Tylenol 325mg Tab) 650 mg PO Q6H PRN PRN Reason: Pain, severe (8-10) Last Admin: 02/27/18 17:31 Dose: 650 mg Acetaminophen (Tylenol 650mg/20.3ml Solution Ud) 650 mg PO Q6H PRN PRN Reason: Pain, moderate (4-7) Last Admin: 02/23/18 23:11 Dose: 650 mg Albuterol/Ipratropium (Duoneb 3 Mg/0.5 Mg (3 Ml) Ud) 3 ml IH [id number] [facility] Last Admin: 02/28/18 04:10 Dose: Not Given Amlodipine Besylate (Norvasc) 10 mg PO DAILY [facility] Last Admin: 02/27/18 11:27 Dose: 10 mg Atorvastatin Calcium (Lipitor) 20 mg PO DIN [facility] Last Admin: 02/27/18 17:13 Dose: 20 mg Calcium Carbonate (Caltrate) 600 mg PO DAILY [facility] Last Admin: 02/27/18 11:30 Dose: 600 mg Cilostazol (Pletal) 100 mg PO BID [facility] Last Admin: 02/27/18 17:13 Dose: 100 mg Doxercalciferol (Hectorol) 0.5 mcg PO DAILY [facility] Last Admin: 02/27/18 11:27 Dose: 0.5 mcg Ergocalciferol (Drisdol 50,000 Intl Units Cap) 1 cap PO Q7D [facility] Last Admin: 02/23/18 14:51 Dose: 1 cap Hydromorphone HCl (Dilaudid) 0.25 mg IVP Q6 PRN PRN Reason: Pain, severe (8-10) Potassium Chloride 20 meq/Sodium Bicarbonate 50 meq/Dextrose/Sodium Chloride 1, 060 mls @ 80 mls/hr IV .[id number] [facility] Last Admin: 02/28/18 01:39 Dose: Not Given Iron Sucrose (Venofer) 100 mg IV QWK [facility] Metoprolol Tartrate (Lopressor) 25 mg PO BID [facility] Last Admin: 02/27/18 17:13 Dose: 25 mg Pantoprazole Sodium (Protonix Ec Tab) 40 mg PO 0600,1600 [facility] Last Admin: 02/28/18 06:13 Dose: 40 mg Pentoxifylline (Pentoxil) 400 mg PO TID [facility] Last Admin: 02/27/18 18:36 Dose: 400 mg Tramadol HCl (Ultram) 50 mg PO TID [facility] Last Admin: 02/27/18 18:14 Dose: 50 mg Vancomycin HCl (Vancocin 25 Mg/Ml (Oral Use)) 250 mg PO Q6 [facility] PRN Reason: Protocol Stop: 03/04/18 18:01 Last Admin: 02/28/18 06:13 Dose: 250 mg - Labs Labs: 02/27/18 10:15 02/27/18 10:15 - Constitutional Appears: Well, Non-toxic, No Acute Distress - Extremities Exam Additional comments: Bilateral LE focused exam Vasc: DP and PT unpalpable, temperature gradient cool to cool, no edema noted to the LE, CFT delayed to the digits Derm: right hallux wound with demarcated dry eschar at distal medial tuft; 4th and 5th toes with dry demarcated eschars at distal rojelio as well, no fluctanance , no abscess, no clinical signs of infection, left foot digit 3 and 4 appear hyperpigmented and gangrenous with no open lesions, well demarcation noted. No drainage, no erythema, no streaking, no clinical suspicion of active infection. Neuro: Epicritic and protective sensation grossly diminished b/l Ortho: severe pain noted with light palpation to the right hallux and generalized forefoot, mild pain on the left forefoot, patient unable to MM secondary to guarding. - Neurological Exam Neurological Exam: Alert, Awake Assessment and Plan - Assessment and Plan (Free Text) Assessment: 77M with PAD and chronic non-healing dry gangrene of bilateral toes Plan: Patient seen and evaluated with attending Dr. Pollard. Afebrile, WBC 18.2, trending down form 19.5 yesterday. Feet are unlikely source of infection given lack of clinical signs of infection Wound cx toe: Coag Neg Staph X-rays on 02/24/18- WNL no bony pathology noted, no OM Duplex RLE arterial US- Impression: 1. New left iliac occlusive disease 2. Right calf PVR waveform does not augment. Suggest recent right SFA intervention re-occluded 3. Severe bilateral tibial disease Necrotic changes to patient's toes painted with betadine and left open to air Multipodus boots kept in place Continue antibiotics per ID No plans for podiatric surgical intervention surgical intervention at this time Noted Vascular recommendations for potential amputation. Podiatry will continue to follow while patient in house <Jason Pollard - Last Filed: 03/03/18 12:35> Objective - Vital Signs/Intake and Output Vital Signs (last 24 hours): Temp Pulse Resp BP Pulse Ox 97.5 F L 85 20 142/81 96 03/03/18 06:00 03/03/18 06:00 03/03/18 06:00 03/03/18 09:14 03/03/18 06:00 Intake and Output: 03/03/18 03/03/18 06:59 18:59 Intake Total 480 Balance 480 - Medications Medications: Current Medications Acetaminophen (Tylenol 325mg Tab) 650 mg PO Q6H PRN PRN Reason: Pain, severe (8-10) Last Admin: 02/27/18 17:31 Dose: 650 mg Acetaminophen (Tylenol 650mg/20.3ml Solution Ud) 650 mg PO Q6H PRN PRN Reason: Pain, moderate (4-7) Last Admin: 02/23/18 23:11 Dose: 650 mg Albuterol/Ipratropium (Duoneb 3 Mg/0.5 Mg (3 Ml) Ud) 3 ml IH [id number] [facility] Last Admin: 03/03/18 07:32 Dose: Not Given Amlodipine Besylate (Norvasc) 10 mg PO DAILY [facility] Last Admin: 03/03/18 09:14 Dose: 10 mg Atorvastatin Calcium (Lipitor) 20 mg PO DIN [facility] Last Admin: 03/02/18 17:31 Dose: 20 mg Calcium Carbonate (Caltrate) 600 mg PO DAILY [facility] Last Admin: 03/03/18 09:16 Dose: 600 mg Cilostazol (Pletal) 100 mg PO BID [facility] Last Admin: 03/03/18 09:16 Dose: 100 mg Doxercalciferol (Hectorol) 0.5 mcg PO DAILY [facility] Last Admin: 03/03/18 09:16 Dose: 0.5 mcg Ergocalciferol (Drisdol 50,000 Intl Units Cap) 1 cap PO Q7D [facility] Last Admin: 03/02/18 14:04 Dose: 1 cap Heparin Sodium (Porcine) (Heparin) 5,000 units SC Q12 [facility] PRN Reason: Protocol Last Admin: 03/03/18 09:16 Dose: 5,000 units Hydralazine HCl (Apresoline) 10 mg PO QID PRN PRN Reason: for sbp>160 Hydromorphone HCl (Dilaudid) 1 mg IVP Q6 PRN PRN Reason: PAIN SEVERE [8-10] Iron Sucrose 100 mg/ Sodium (Chloride) 105 mls @ 210 mls/hr IVPB QWK [facility] Last Admin: 02/28/18 11:27 Dose: 210 mls/hr Iron Sucrose (Venofer) 100 mg IV QWK [facility] Last Admin: 02/28/18 11:21 Dose: Not Given Metoprolol Tartrate (Lopressor) 50 mg PO BID [facility] Pantoprazole Sodium (Protonix Ec Tab) 40 mg PO 0600,1600 [facility] Last Admin: 03/03/18 06:11 Dose: 40 mg Pentoxifylline (Pentoxil) 400 mg PO TID [facility] Last Admin: 03/03/18 09:16 Dose: 400 mg Tramadol HCl (Ultram) 50 mg PO TID [facility] Last Admin: 03/03/18 09:16 Dose: 50 mg Vancomycin HCl (Vancocin 25 Mg/Ml (Oral Use)) 250 mg PO Q6 [facility] PRN Reason: Protocol Stop: 03/04/18 18:01 Last Admin: 03/03/18 06:11 Dose: 250 mg - Labs Labs: 03/02/18 06:20 03/01/18 08:15 Attending/Attestation - Attestation I have personally seen and examined this patient.: Yes I have fully participated in the care of the patient.: Yes I have reviewed all pertinent clinical information, including history, physical exam and plan: Yes
[2018-02-28] MEDS: Cilostazol 100 mg Tab UD PO SCH ×2 (09:16→17:14)
[2018-02-28] MEDS ORDERED: Iron Sucrose 100 mg/5 ml Inj IV SCH (10:00)
--- NOTE | 2018-02-28 10:39 | PN ---
DATE: 02/28/2018 SUBJECTIVE: The patient is in bed, in no acute distress, nontoxic. PHYSICAL EXAMINATION: VITAL SIGNS: Temperature is 97, blood pressure is 120/70, respiratory rate of 18, heart rate of 84. HEENT: Unremarkable. NECK: Supple. LUNGS: Have decreased breath sounds. HEART: Normal S1, S2. ABDOMEN: Soft, nontender. LABORATORY EXAMINATION: Reveals a white count of 18,200, hemoglobin of 9 and platelets of 387. BUN of 50, creatinine of 3.8. Microbiology reveals toe culture is coag-negative staph, the C. diff antigen and toxin to be negative and the patient is on p.o. vancomycin. The initial C. diff was positive. ASSESSMENT AND PLAN: A 77-year-old male seen earlier today in 572 with pseudomembranous colitis, diarrhea is improving, with a history of right toe gangrene. No evidence of active infection in a patient with peripheral vascular disease and status post revascularization; on day #6 of p.o. vancomycin, we will complete 10 to 14 days of p.o. vancomycin. Popeye Barber MD
--- NOTE | 2018-02-28 17:20 | PN ---
DATE: 02/28/2018 SUBJECTIVE: The patient was seen and examined at the bedside on 02/28/2018. I am doing progress note of 02/28/2018. No headache. No dizziness. No chest pain. No palpitations. The patient is a very poor historian. Appetite is very bad. Tried to convince him to eat something. Having pain in both feet, lying down in seated position. No fever. No chills. No hematuria or hematochezia. .No headaches or dizziness. PHYSICAL EXAMINATION: VITAL SIGNS: Temperature is 98.5, pulse 78, blood pressure 128/76, respiratory rate 20. HEENT: Head: Normocephalic and atraumatic. Eyes: PERRLA. Extraocular muscles intact. Conjunctivae clear. Nose patent. Mucous membranes moist. NECK: Supple. No carotid bruits. No JVD or thyromegaly. CHEST: Bilaterally symmetrical. HEART: S1 and S2 positive. LUNGS: Clear to auscultation. ABDOMEN: Soft. Bowel sounds positive. No organomegaly. EXTREMITIES: Trace edema on the ankles and both feet has gangrenous toes. NEUROLOGICAL: The patient is awake and alert. Follows simple command. MEDICATIONS: Carafate, Dilaudid, vitamin D, DuoNeb, Hectorol, iron, Lipitor, Lopressor, Norvasc, pentoxifylline, Pletal, eyedrops, Venofer. LABORATORY DATA: White blood cell 18.3, hemoglobin 9.1, hematocrit 27.3, platelets 387. BUN 50 and creatinine 3.8. Calcium 7.9. ASSESSMENT AND PLAN: Mr. Geovanna Guerra is a 77-year-old male with leukocytosis, anemia, renal insufficiency, hypocalcemia, abnormal liver function test, severe peripheral vascular disease, gangrenous toes. ID is on the case. Podiatry is on the case. As per Dr. Renaldo Rolle, the patient needs amputation. Dr. Yao, Podiatry consult was called. There is nonhealing ischemic changes to the toes bilaterally. We will continue present treatment. Gastrointestinal and deep vein thrombosis prophylaxis. Repeat labs. Shivani Walters MD [facility] # [id number] MTDD
--- NOTE | 2018-02-28 17:59 | PN ---
DATE: 02/28/2018 PULMONARY PROGRESS NOTE REFERRING PHYSICIAN: Shivani Walters MD. SUBJECTIVE: He is lying in the bed, head at 45 degrees. Night was unremarkable. Do not have good appetite. Not much cough. No sputum production. No nausea. No vomiting. Has a bilateral lower extremity pain. OBJECTIVE: GENERAL: In no acute distress. VITAL SIGNS: Temperature is 98, heart rate is 70, respiratory rate is 18, blood pressure 119/65, pulse ox 97% on room air. HEENT: Moist mucous membrane. No ulcer or thrush noted. NECK: Supple. No JVD. LUNGS: Have a fair airflow with rhonchi. HEART: S1 and S2. ABDOMEN: Soft, nontender. No organomegaly. EXTREMITIES: Does have some ischemic toes. Decreased pulses. NEUROLOGICAL: Awake and alert. Follows simple command. LABORATORY DATA: Reviewed. No new lab is available since yesterday. MEDICATIONS: He is on calcium carbonate 600 mg daily, Dilaudid 0.25 mg every 6 hours p.r.n., vitamin D 50,00 units every 7 days, DuoNeb every 6 hours, iron sucrose IV daily, Lipitor 20 mg daily, metoprolol tartrate 25 mg twice a day, Norvasc 10 mg daily, Pentoxil 400 mg three times a day, Pletal 100 mg twice a day, IV fluid with potassium 80 mL per hour, Protonix 40 mg twice a day, Tylenol p.r.n., Ultram is at 50 mg three times a day, vancomycin 250 mg every 6 hours, Venofer 100 mg IV weekly. IMPRESSION AND PLAN: Chronic obstructive lung disease, renal failure, has a perivascular infiltrate, multiple pressure ulcers, pulmonary hypertension, history of cerebrovascular accident, ischemic toes. Pulmonary point of view, doing okay. Keep head at 45 degrees. Bronchodilator. Encourage p.o. intake. Gastric prophylaxis. Continue peripheral vasodilator, p.r.n Tylenol, beta gi, statins. Being followed by Podiatry. Thank you and we will follow with you. Jt Hayden MD
[2018-03-01] MEDS: Albuterol-Ipratrop 3 mg / 0.5 (3 ml) UD IH SCH ×4 (01:14→19:31)
[2018-03-01] MEDS: SODIUM BICARBONATE IV SCH ×2 (05:17→14:13)
[2018-03-01] MEDS: [UNRECOGNIZED DRUG - OTHER] IV SCH ×2 (05:17→14:13)
[2018-03-01] MEDS: POTASSIUM CHLORIDE IV SCH ×2 (05:17→14:13)
[2018-03-01] MEDS: Pantoprazole 40 mg EC Tab PO SCH ×2 (05:18→17:14)
[2018-03-01] MEDS: Vancomycin 25 MG/ML PO SCH ×4 (05:19→23:48)
--- NOTE | 2018-03-01 07:33 | CP.PCM.PN ---
Subjective - Date & Time of Evaluation Date of Evaluation: 03/01/18 Time of Evaluation: 06:45 - Subjective Subjective: Vascular Surgery Note for Dr. Hudson Patient seen and examined at bedside. No acute event overnight. Patient denies pain. Patient is tolerating diet and having BMs. He has no complaints at this time. Objective - Vital Signs/Intake and Output Vital Signs (last 24 hours): Temp Pulse Resp BP Pulse Ox 97.9 F 68 18 117/61 95 02/28/18 23:13 02/28/18 23:13 02/28/18 23:13 02/28/18 23:13 02/28/18 23:13 Intake and Output: 03/01/18 03/01/18 06:59 18:59 Intake Total 660 Output Total 100 Balance 560 - Medications Medications: Current Medications Acetaminophen (Tylenol 325mg Tab) 650 mg PO Q6H PRN PRN Reason: Pain, severe (8-10) Last Admin: 02/27/18 17:31 Dose: 650 mg Acetaminophen (Tylenol 650mg/20.3ml Solution Ud) 650 mg PO Q6H PRN PRN Reason: Pain, moderate (4-7) Last Admin: 02/23/18 23:11 Dose: 650 mg Albuterol/Ipratropium (Duoneb 3 Mg/0.5 Mg (3 Ml) Ud) 3 ml IH [id number] [facility] Last Admin: 03/01/18 07:24 Dose: Not Given Amlodipine Besylate (Norvasc) 10 mg PO DAILY [facility] Last Admin: 02/28/18 09:16 Dose: 10 mg Atorvastatin Calcium (Lipitor) 20 mg PO DIN [facility] Last Admin: 02/28/18 17:14 Dose: 20 mg Calcium Carbonate (Caltrate) 600 mg PO DAILY [facility] Last Admin: 02/28/18 09:14 Dose: 600 mg Cilostazol (Pletal) 100 mg PO BID [facility] Last Admin: 02/28/18 17:14 Dose: 100 mg Doxercalciferol (Hectorol) 0.5 mcg PO DAILY [facility] Last Admin: 02/28/18 09:15 Dose: 0.5 mcg Ergocalciferol (Drisdol 50,000 Intl Units Cap) 1 cap PO Q7D [facility] Last Admin: 02/23/18 14:51 Dose: 1 cap Hydromorphone HCl (Dilaudid) 0.25 mg IVP Q6 PRN PRN Reason: Pain, severe (8-10) Potassium Chloride 20 meq/Sodium Bicarbonate 50 meq/Dextrose/Sodium Chloride 1, 060 mls @ 80 mls/hr IV .[id number] [facility] Last Admin: 03/01/18 05:17 Dose: Not Given Iron Sucrose 100 mg/ Sodium (Chloride) 105 mls @ 210 mls/hr IVPB QWK [facility] Last Admin: 02/28/18 11:27 Dose: 210 mls/hr Iron Sucrose (Venofer) 100 mg IV QWK [facility] Last Admin: 02/28/18 11:21 Dose: Not Given Metoprolol Tartrate (Lopressor) 25 mg PO BID [facility] Last Admin: 02/28/18 17:14 Dose: 25 mg Pantoprazole Sodium (Protonix Ec Tab) 40 mg PO 0600,1600 [facility] Last Admin: 03/01/18 05:18 Dose: Not Given Pentoxifylline (Pentoxil) 400 mg PO TID [facility] Last Admin: 02/28/18 17:14 Dose: 400 mg Tramadol HCl (Ultram) 50 mg PO TID [facility] Last Admin: 02/28/18 17:14 Dose: 50 mg Vancomycin HCl (Vancocin 25 Mg/Ml (Oral Use)) 250 mg PO Q6 [facility] PRN Reason: Protocol Stop: 03/04/18 18:01 Last Admin: 03/01/18 05:19 Dose: Not Given - Labs Labs: 02/27/18 10:15 02/27/18 10:15 - Additional Findings Additional findings: - Constitutional Appears: No Acute Distress, Cachetic - Head Exam Head Exam: ATRAUMATIC, NORMOCEPHALIC - Eye Exam Eye Exam: Normal appearance. - ENT Exam ENT Exam: Mucous Membranes Moist, Normal Oropharynx - Respiratory Exam Respiratory Exam: NORMAL BREATHING PATTERN. absent: Accessory Muscle Use, Respiratory Distress - Cardiovascular Exam Cardiovascular Exam: RRR - GI/Abdominal Exam GI & Abdominal Exam: Soft. absent: Distended, Tenderness - Extremities Exam Additional comments: Dry gangrene of the distal 5 digits on the right foot, dry gangrene of the distal 2nd and 3rd digits of the left foot non-dopplerable DP bilaterally PT present on doppler bilaterally - Neurological Exam Neurological Exam: Alert, Awake, Oriented x3 - Psychiatric Exam Psychiatric exam: Normal Affect, Normal Mood - Skin Skin Exam: Dry, Warm. 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 Tristan Thrasher PGY1
[2018-03-01 08:25] LABS: BASO # 0.02 K/mm3 (0.0-2.0); BASO % 0.1 % (0.0-3.0); EOS # 0.7 (0.0-0.7); EOS % 3.4 % (1.5-5.0); GRAN # 16.41 (1.4-6.5); GRAN % 78.4 % (50.0-68.0); HEMOGLOBIN 7.5 g/dL (14.0-18.0); LYMPH # 1.8 (1.2-3.4); LYMPH % 8.6 % (22.0-35.0); MEAN CELL VOLUME 84.4 fl (80.0-105.0); MEAN CORPUSCULAR HEMOGLOBIN 27.9 pg (25.0-35.0); MEAN PLATELET VOLUME 9.5 fl (7.0-11.0); MONO % 9.5 % (1.0-6.0); RBC 2.69 10^6/uL (3.5-6.1); RED CELL DISTRIBUTION WIDTH 16.2 % (11.5-14.5); WHITE BLOOD COUNT 20.9 10^3/ul (4.5-11.0)
[2018-03-01 08:35] LABS: ALB/GLOB RATIO 0.9 (1.1-1.8); ALBUMIN 2.6 g/dL (3.0-4.8); CALCIUM 7.4 mg/dL (8.4-10.5)
[2018-03-01] MEDS: Cilostazol 100 mg Tab UD PO SCH ×2 (09:18→17:14)
--- NOTE | 2018-03-01 10:48 | CP.PCM.PN ---
Subjective - Date & Time of Evaluation Date of Evaluation: 03/01/18 Time of Evaluation: 09:50 - Subjective Subjective: NAD, denies chest pain, no SOB Objective - Vital Signs/Intake and Output Vital Signs (last 24 hours): Temp Pulse Resp BP Pulse Ox 97.5 F L 70 18 130/70 97 03/01/18 07:40 03/01/18 07:40 03/01/18 07:40 03/01/18 09:18 03/01/18 07:40 Intake and Output: 03/01/18 03/01/18 06:59 18:59 Intake Total 660 Output Total 100 Balance 560 - Medications Medications: Current Medications Acetaminophen (Tylenol 325mg Tab) 650 mg PO Q6H PRN PRN Reason: Pain, severe (8-10) Last Admin: 02/27/18 17:31 Dose: 650 mg Acetaminophen (Tylenol 650mg/20.3ml Solution Ud) 650 mg PO Q6H PRN PRN Reason: Pain, moderate (4-7) Last Admin: 02/23/18 23:11 Dose: 650 mg Albuterol/Ipratropium (Duoneb 3 Mg/0.5 Mg (3 Ml) Ud) 3 ml IH [id number] [facility] Last Admin: 03/01/18 07:24 Dose: Not Given Amlodipine Besylate (Norvasc) 10 mg PO DAILY [facility] Last Admin: 03/01/18 09:18 Dose: 10 mg Atorvastatin Calcium (Lipitor) 20 mg PO DIN [facility] Last Admin: 02/28/18 17:14 Dose: 20 mg Calcium Carbonate (Caltrate) 600 mg PO DAILY [facility] Last Admin: 03/01/18 09:17 Dose: 600 mg Cilostazol (Pletal) 100 mg PO BID [facility] Last Admin: 03/01/18 09:18 Dose: 100 mg Doxercalciferol (Hectorol) 0.5 mcg PO DAILY [facility] Last Admin: 03/01/18 09:18 Dose: 0.5 mcg Ergocalciferol (Drisdol 50,000 Intl Units Cap) 1 cap PO Q7D [facility] Last Admin: 02/23/18 14:51 Dose: 1 cap Hydromorphone HCl (Dilaudid) 0.25 mg IVP Q6 PRN PRN Reason: Pain, severe (8-10) Potassium Chloride 20 meq/Sodium Bicarbonate 50 meq/Dextrose/Sodium Chloride 1, 060 mls @ 80 mls/hr IV .[id number] [facility] Last Admin: 03/01/18 05:17 Dose: Not Given Iron Sucrose 100 mg/ Sodium (Chloride) 105 mls @ 210 mls/hr IVPB QWK [facility] Last Admin: 02/28/18 11:27 Dose: 210 mls/hr Iron Sucrose (Venofer) 100 mg IV QWK [facility] Last Admin: 02/28/18 11:21 Dose: Not Given Metoprolol Tartrate (Lopressor) 25 mg PO BID [facility] Last Admin: 03/01/18 09:18 Dose: 25 mg Pantoprazole Sodium (Protonix Ec Tab) 40 mg PO 0600,1600 [facility] Last Admin: 03/01/18 05:18 Dose: Not Given Pentoxifylline (Pentoxil) 400 mg PO TID [facility] Last Admin: 03/01/18 09:25 Dose: 400 mg Tramadol HCl (Ultram) 50 mg PO TID [facility] Last Admin: 03/01/18 09:16 Dose: 50 mg Vancomycin HCl (Vancocin 25 Mg/Ml (Oral Use)) 250 mg PO Q6 [facility] PRN Reason: Protocol Stop: 03/04/18 18:01 Last Admin: 03/01/18 05:19 Dose: Not Given - Labs Labs: 03/01/18 08:15 03/01/18 08:15 - Respiratory Exam Respiratory Exam: Clear to Ausculation Bilateral, NORMAL BREATHING PATTERN - Cardiovascular Exam Cardiovascular Exam: REGULAR RHYTHM - GI/Abdominal Exam GI & Abdominal Exam: Soft, Normal Bowel Sounds - Extremities Exam Additional comments: dressings of feet clean/intact Assessment and Plan (1) Renal failure Status: Acute (2) Necrotic toes Status: Acute - Assessment and Plan (Free Text) Plan: continue wound care, renal follow-up, IV Abx, Dr. Walters to resume care of patient in am
--- NOTE | 2018-03-01 12:38 | PN ---
DATE: 03/01/2018 SUBJECTIVE: The patient is in bed, seen earlier this morning. PHYSICAL EXAMINATION: VITAL SIGNS: Temperature is 98, blood pressure is 120/70, respiratory rate of 16. HEENT: Examination is unremarkable. NECK: Supple. HEART: Normal S1 and S2. LUNGS: Decreased breath sounds. ABDOMEN: Soft. DATA: Laboratory examination reveals a white count of 20,000, hemoglobin of 7. Chemistry: BUN of 43, creatinine of 3.8. Urinalysis is noted. Throat culture is positive for coag-negative staph. The patient is on p.o. vancomycin. ASSESSMENT AND PLAN: This is a 77-year-old male seen earlier today in 572 with pseudomembranous colitis; diabetes, improving; history of right toe gangrene, no evidence of an active infection in a patient with peripheral vascular disease and status post revascularization, day #7 of p.o. vancomycin, complete 10 to 14 days. Popeye Barber MD
--- NOTE | 2018-03-01 12:56 | PN ---
DATE: 03/01/2018 SUBJECTIVE: The patient is seen lying in bed. He is awake, he is alert. He is somewhat confused. He does not remember if he had any breakfast today. PHYSICAL EXAMINATION: GENERAL: Elderly male, lying in bed. VITAL SIGNS: Blood pressure 130/70, heart rate 70, respiratory rate 18, temperature 97.5. HEENT: Normocephalic, atraumatic, positive pallor. NECK: Supple. No JVD. LUNGS: Bilateral equal air equal entry, bilateral equal expansion. CARDIAC: S1 and S2. Regular rate and rhythm, no murmur, no rub. ABDOMEN: Soft, nondistended, nontender. Bowel sounds present. EXTREMITIES: Both feet are in dressing. INTAKE AND OUTPUT: 2880/700. LABORATORY DATA: WBC 20.9, hemoglobin 7.5, hematocrit 23, platelets 368. Sodium 138, potassium 3.9, chloride 105, CO2 of 23, BUN 43, creatinine 3.8, glucose 110, calcium 7.4, albumin 2.6, corrected calcium 8.4. Stool occults negative from yesterday. CURRENT MEDICATIONS: Caltrate 600, Dilaudid, Drisdol, DuoNeb, Hectorol, iron 100 given yesterday, Lipitor, Lopressor, amlodipine, Pletal 100 b.i.d, IV fluids on hold, Protonix, Tylenol, tramadol, vancomycin. ASSESSMENT: 1. Severe peripheral vascular disease, gangrene of multiple toes on the right foot. 2. Severe anemia of chronic disease plus chronic kidney disease. 3. Stable chronic kidney disease stage 4. 4. Hypocalcemia, mild. Corrected calcium is 8.4. 5. Hypertension. PLAN: 1. Recommend transfusing 1 unit of PRBCs. 2. Agree with plan for amputation of the right foot. 3. Continue antibiotics. 4. Push p.o. protein intake. Latrice Holder MD
--- NOTE | 2018-03-01 13:21 | CP.PCM.PN ---
<Kareem Sanchez - Last Filed: 03/01/18 13:18> Subjective - Date & Time of Evaluation Date of Evaluation: 03/01/18 Time of Evaluation: 12:20 - Subjective Subjective: 77 year old male seen and evaluated at bedside for non-healing ischemic changes to toes of bilateral(b/l) feet. Patient seen and examined, resting comfortably upon arrival. Denies acute overnight events. Patient reports pain to b/l feet R > L, moderatly controlled by pain medication. Patient reports pain to his bilateral feet upon manipulation by outside sources. and worsens with worse with pressure. Denies N/V/F/C/CP/SOB. No new pedal complaints. Patient seen with multipodus boots on. Objective - Vital Signs/Intake and Output Vital Signs (last 24 hours): Temp Pulse Resp BP Pulse Ox 97.5 F L 70 18 130/70 97 03/01/18 07:40 03/01/18 07:40 03/01/18 07:40 03/01/18 09:18 03/01/18 12:29 Intake and Output: 03/01/18 03/01/18 06:59 18:59 Intake Total 660 Output Total 100 Balance 560 - Medications Medications: Current Medications Acetaminophen (Tylenol 325mg Tab) 650 mg PO Q6H PRN PRN Reason: Pain, severe (8-10) Last Admin: 02/27/18 17:31 Dose: 650 mg Acetaminophen (Tylenol 650mg/20.3ml Solution Ud) 650 mg PO Q6H PRN PRN Reason: Pain, moderate (4-7) Last Admin: 02/23/18 23:11 Dose: 650 mg Albuterol/Ipratropium (Duoneb 3 Mg/0.5 Mg (3 Ml) Ud) 3 ml IH [id number] [facility] Last Admin: 03/01/18 07:24 Dose: Not Given Amlodipine Besylate (Norvasc) 10 mg PO DAILY [facility] Last Admin: 03/01/18 09:18 Dose: 10 mg Atorvastatin Calcium (Lipitor) 20 mg PO DIN [facility] Last Admin: 02/28/18 17:14 Dose: 20 mg Calcium Carbonate (Caltrate) 600 mg PO DAILY [facility] Last Admin: 03/01/18 09:17 Dose: 600 mg Cilostazol (Pletal) 100 mg PO BID [facility] Last Admin: 03/01/18 09:18 Dose: 100 mg Doxercalciferol (Hectorol) 0.5 mcg PO DAILY [facility] Last Admin: 03/01/18 09:18 Dose: 0.5 mcg Ergocalciferol (Drisdol 50,000 Intl Units Cap) 1 cap PO Q7D [facility] Last Admin: 02/23/18 14:51 Dose: 1 cap Hydromorphone HCl (Dilaudid) 0.25 mg IVP Q6 PRN PRN Reason: Pain, severe (8-10) Potassium Chloride 20 meq/Sodium Bicarbonate 50 meq/Dextrose/Sodium Chloride 1, 060 mls @ 80 mls/hr IV .[id number] [facility] Last Admin: 03/01/18 05:17 Dose: Not Given Iron Sucrose 100 mg/ Sodium (Chloride) 105 mls @ 210 mls/hr IVPB QWK [facility] Last Admin: 02/28/18 11:27 Dose: 210 mls/hr Iron Sucrose (Venofer) 100 mg IV QWK [facility] Last Admin: 02/28/18 11:21 Dose: Not Given Metoprolol Tartrate (Lopressor) 25 mg PO BID [facility] Last Admin: 03/01/18 09:18 Dose: 25 mg Pantoprazole Sodium (Protonix Ec Tab) 40 mg PO 0600,1600 [facility] Last Admin: 03/01/18 05:18 Dose: Not Given Pentoxifylline (Pentoxil) 400 mg PO TID [facility] Last Admin: 03/01/18 09:25 Dose: 400 mg Tramadol HCl (Ultram) 50 mg PO TID [facility] Last Admin: 03/01/18 09:16 Dose: 50 mg Vancomycin HCl (Vancocin 25 Mg/Ml (Oral Use)) 250 mg PO Q6 [facility] PRN Reason: Protocol Stop: 03/04/18 18:01 Last Admin: 03/01/18 05:19 Dose: Not Given - Labs Labs: 03/01/18 08:15 03/01/18 08:15 - Constitutional Appears: Well, Non-toxic, No Acute Distress - Extremities Exam Additional comments: Bilateral LE focused exam Vasc: DP and PT un-palpable, temperature gradient cool to cool, no edema noted to the LE, CFT delayed to the digits Derm: right hallux wound with demarcated dry eschar at distal tuft and distal medial margin; 4th and 5th toes with dry demarcated eschars at distal rojelio as well, no fluctanance, no abscess, no clinical signs of infection, left foot digit 3 and 4 appear hyperpigmented and gangrenous with no open lesions, well demarcation noted. No drainage, no erythema, no streaking, no clinical suspicion of active infection. Neuro: Epicritic and protective sensation grossly diminished b/l Ortho: severe pain noted with light palpation to the right hallux and generalized forefoot, mild pain on the left forefoot, patient unable to MM secondary to guarding. 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 Discussed with attending Dr. Irvin. Afebrile, WBC 20.9, trended form 18.2 yesterday. Feet are unlikely source of infection given lack of clinical signs of infection Wound cx toe: Coag Neg Staph X-rays on 02/24/18- WNL no bony pathology noted, no OM Duplex RLE arterial US- Impression: 1. New left iliac occlusive disease 2. Right calf PVR waveform does not augment. Suggest recent right SFA intervention re-occluded 3. Severe bilateral tibial disease Necrotic changes to patient's toes painted with betadine and left open to air Multipodus boots kept in place Continue antibiotics per ID No plans for podiatric surgical intervention surgical intervention at this time Noted Vascular recommendations for potential amputation. Podiatry will continue to follow while patient in house <Sylwia Irvin - Last Filed: 03/08/18 20:14> Objective - Vital Signs/Intake and Output Vital Signs (last 24 hours): Temp Pulse Resp BP Pulse Ox 98.6 F 64 20 123/67 95 03/08/18 06:00 03/08/18 11:15 03/08/18 06:00 03/08/18 11:15 03/08/18 06:00 - Labs Labs: 03/08/18 08:00 03/08/18 08:00 PT 12.7 SECONDS (9.4-12.5) H 03/04/18 13:00 INR 1.10 (0.93-1.08) H 03/04/18 13:00 APTT 30.6 Seconds (25.1-36.5) 03/04/18 13:00 Attending/Attestation - Attestation I have personally seen and examined this patient.: Yes I have fully participated in the care of the patient.: Yes I have reviewed all pertinent clinical information, including history, physical exam and plan: Yes
--- NOTE | 2018-03-01 21:57 | PN ---
DATE: 03/01/2018 PULMONARY PROGRESS NOTE REFERRING PHYSICIAN: Shivani Walters MD. SUBJECTIVE: He is lying in the bed, head at 45 degrees. Feels a little better. Family is at the bedside. No headache. No rhinitis. No cough, no sputum production. No nausea, no vomiting. Complaining of lower extremity pain. OBJECTIVE: GENERAL: In no acute distress. VITAL SIGNS: Temperature is 98, heart rate is 70, respiratory rate is 20, blood pressure 113/58, pulse ox 97% on room air. HEENT: Moist mucous membrane. No ulcer or thrush noted. NECK: Supple. No JVD. LUNGS: Have a fair airflow with rhonchi. HEART: S1 and S2. ABDOMEN: Soft, nontender. No organomegaly. EXTREMITIES: Have ischemic changes of both feet and toes. NEUROLOGICAL: Awake and alert. Follows simple commands. MEDICATIONS: He is on calcium carbonate 600 mg daily, Dilaudid 0.25 mg every 6 hours p.r.n., vitamin D 50,000 units every 7 days, DuoNeb every 6 hours, IV iron, also on Lipitor 20 mg daily, metoprolol tartrate 25 mg twice a day, Norvasc 10 mg daily, Pentoxil 400 mg three times a day, Pletal 100 mg twice a day, Protonix 40 mg daily, Tylenol p.r.n. basis, Ultram 50 mg three times a day, vancomycin 250 every 6 hours, Venofer 100 mg IV weekly. LABORATORY DATA: Shows hemoglobin 7.5, hematocrit 22.7, WBC 20,000, platelet is 368. Sodium 138, potassium 3.9, chloride 105, bicarbonate 23, BUN 43, creatinine 3.8, glucose 110, calcium 7.4. AST 15, ALT 17, alkaline phosphatase is 128, albumin is 2.6. IMPRESSION AND PLAN: Chronic obstructive lung disease, renal failure. On x-ray, there is perihilar infiltrates, multiple pressure ulcers, pulmonary hypertension, history of cerebrovascular accident, lower extremity ischemia with almost gangrene formation. I had discussion with the patient and family at bedside. All their questions were answered. Continue Pletal, Pentoxyl, peripheral vasodilators, gastric prophylaxis, deep vein thrombosis prophylaxis. Pulmonary point of view, he is stable, being followed by Vascular Surgery and Podiatry. Thank you and we will follow with you. Jt Hayden MD [facility] # [id number]
[2018-03-02] MEDS: Albuterol-Ipratrop 3 mg / 0.5 (3 ml) UD IH SCH ×4 (01:51→19:50)
[2018-03-02] MEDS: Pantoprazole 40 mg EC Tab PO SCH ×2 (06:04→17:31)
[2018-03-02 06:56] LABS: HEMOGLOBIN 8.4 g/dL (14.0-18.0); MEAN CELL VOLUME 84.7 fl (80.0-105.0); MEAN CORPUSCULAR HGB CONC 33.1 g/dl (31.0-37.0); MEAN PLATELET VOLUME 9.7 fl (7.0-11.0); RED CELL DISTRIBUTION WIDTH 16.1 % (11.5-14.5); WHITE BLOOD COUNT 17.2 10^3/ul (4.5-11.0)
--- NOTE | 2018-03-02 07:07 | CP.PCM.PN ---
Subjective - Date & Time of Evaluation Date of Evaluation: 03/02/18 Time of Evaluation: 07:08 - Subjective Subjective: Vascular Surgery Note for Dr. Hudson Patient seen and examined at bedside. No acute event overnight. Patient admits to pain in feet bilaterally. He is tolerating diet. Denies diarrhea. Patient states that he is urinating without difficulty. Denies fever/chills, chest pain , SOB, abdominal pain, nasuea/vomiting. Objective - Vital Signs/Intake and Output Vital Signs (last 24 hours): Temp Pulse Resp BP Pulse Ox 97.3 F L 68 16 121/73 94 L 03/01/18 22:19 03/01/18 22:19 03/01/18 22:19 03/01/18 22:19 03/01/18 22:19 Intake and Output: 03/02/18 03/02/18 06:59 18:59 Intake Total 355 Balance 355 - Medications Medications: Current Medications Acetaminophen (Tylenol 325mg Tab) 650 mg PO Q6H PRN PRN Reason: Pain, severe (8-10) Last Admin: 02/27/18 17:31 Dose: 650 mg Acetaminophen (Tylenol 650mg/20.3ml Solution Ud) 650 mg PO Q6H PRN PRN Reason: Pain, moderate (4-7) Last Admin: 02/23/18 23:11 Dose: 650 mg Albuterol/Ipratropium (Duoneb 3 Mg/0.5 Mg (3 Ml) Ud) 3 ml IH [id number] [facility] Last Admin: 03/02/18 01:51 Dose: Not Given Amlodipine Besylate (Norvasc) 10 mg PO DAILY [facility] Last Admin: 03/01/18 09:18 Dose: 10 mg Atorvastatin Calcium (Lipitor) 20 mg PO DIN [facility] Last Admin: 03/01/18 17:14 Dose: 20 mg Calcium Carbonate (Caltrate) 600 mg PO DAILY [facility] Last Admin: 03/01/18 09:17 Dose: 600 mg Cilostazol (Pletal) 100 mg PO BID [facility] Last Admin: 03/01/18 17:14 Dose: 100 mg Doxercalciferol (Hectorol) 0.5 mcg PO DAILY [facility] Last Admin: 03/01/18 09:18 Dose: 0.5 mcg Ergocalciferol (Drisdol 50,000 Intl Units Cap) 1 cap PO Q7D [facility] Last Admin: 02/23/18 14:51 Dose: 1 cap Heparin Sodium (Porcine) (Heparin) 5,000 units SC Q12 [facility] PRN Reason: Protocol Last Admin: 03/01/18 21:57 Dose: 5,000 units Hydromorphone HCl (Dilaudid) 0.25 mg IVP Q6 PRN PRN Reason: Pain, severe (8-10) Potassium Chloride 20 meq/Sodium Bicarbonate 50 meq/Dextrose/Sodium Chloride 1, 060 mls @ 80 mls/hr IV .[id number] [facility] Last Admin: 03/01/18 14:13 Dose: 80 mls/hr Iron Sucrose 100 mg/ Sodium (Chloride) 105 mls @ 210 mls/hr IVPB QWK [facility] Last Admin: 02/28/18 11:27 Dose: 210 mls/hr Iron Sucrose (Venofer) 100 mg IV QWK [facility] Last Admin: 02/28/18 11:21 Dose: Not Given Metoprolol Tartrate (Lopressor) 25 mg PO BID [facility] Last Admin: 03/01/18 17:14 Dose: 25 mg Pantoprazole Sodium (Protonix Ec Tab) 40 mg PO 0600,1600 [facility] Last Admin: 03/02/18 06:04 Dose: 40 mg Pentoxifylline (Pentoxil) 400 mg PO TID [facility] Last Admin: 03/01/18 17:14 Dose: 400 mg Tramadol HCl (Ultram) 50 mg PO TID [facility] Last Admin: 03/01/18 17:14 Dose: 50 mg Vancomycin HCl (Vancocin 25 Mg/Ml (Oral Use)) 250 mg PO Q6 [facility] PRN Reason: Protocol Stop: 03/04/18 18:01 Last Admin: 03/01/18 23:48 Dose: Not Given - Labs Labs: 03/01/18 08:15 03/01/18 08:15 - Additional Findings Additional findings: - Additional Findings Additional findings: - Constitutional Appears: No Acute Distress, Cachetic - Head Exam Head Exam: ATRAUMATIC, NORMOCEPHALIC - Eye Exam Eye Exam: Normal appearance. - ENT Exam ENT Exam: Mucous Membranes Moist, Normal Oropharynx - Respiratory Exam Respiratory Exam: NORMAL BREATHING PATTERN. absent: Accessory Muscle Use, Respiratory Distress - Cardiovascular Exam Cardiovascular Exam: RRR - GI/Abdominal Exam GI & Abdominal Exam: Soft. absent: Distended, Tenderness - Extremities Exam Additional comments: Dry gangrene of the distal hallux and 4th/5th digits on the right foot, dry gangrene of the distal 3rd and 4th digits of the left foot feet Tender to palpation bilaterally, decreased sensation, no motor deficit non-dopplerable DP bilaterally PT present on doppler bilaterally - Neurological Exam Neurological Exam: Alert, Awake, Oriented x3 - Psychiatric Exam Psychiatric exam: Normal Affect, Normal Mood - Skin Skin Exam: Dry, Warm. 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 Tristan Thrasher PGY1
--- NOTE | 2018-03-02 08:25 | PN ---
DATE: 02/27/2018 SUBJECTIVE: Patient seen and examined on the bedside, looking comfortable. Still complaining about pain in the both extremities. I ordered tramadol, but as per patient, it is not helping. I ordered some IV Dilaudid. Discussion done with Dr. Renaldo Rolle. Patient needs amputation of the legs. We will call and consult with Dr. Hudson. No fever. No chills. No nausea, vomiting, or diarrhea. Patient's appetite is bad. No hematuria, no hematochezia. Both extremities have gangrenous toes. PHYSICAL EXAMINATION: VITAL SIGNS: Temperature 97.2, pulse is 63, respiratory rate 18, blood pressure 140/80, pulse oximetry 96. HEENT: Head: Normocephalic and atraumatic. Eyes: PERRLA. Extraocular muscles are intact. Conjunctivae are clear. Nose: Patent. Mucous membranes moist. NECK: Supple. No carotid bruit. No JVD or thyromegaly. CHEST: Bilaterally symmetrical. HEART: S1 and S2 positive. LUNGS: Clear to auscultation. ABDOMEN: Soft. Bowel sounds present. No organomegaly. EXTREMITIES: No edema. No cyanosis. NEUROLOGIC: Patient is awake and alert. Moving all 4 extremities. No focal deficits. MEDICATIONS: Tylenol, DuoNeb, Norvasc, Lipitor, vitamin D, Venofer, Lopressor, Protonix, Pentoxil, vancomycin. LABORATORY DATA: White blood cell is 19.5, hemoglobin 8.1, hematocrit 24.5, platelets 273. Sodium 139, potassium 4.1, BUN 58, creatinine 3.8, glucose 98. ASSESSMENT AND PLAN: Mr. Geovanna Guerra is a 77-year-old male with leukocytosis, anemia, renal insufficiency, history of Clostridium difficile toxin colitis associated diarrhea clinically improved, history of right first toe gangrene with no evidence of active infection as well as gangrene of the other toes of both feet, peripheral vascular disease with necrotic toes and ulceration bilaterally, status post revascularization. Consider healthcare-associated pneumonia bilaterally. Clinically improved. Acute encephalopathy, etiology to be determined, now resolved. History of right foot cellulitis with right hallux gangrene, peripheral vascular disease, hypertension. Length of time discussion done. Continue p.o. vancomycin. Podiatry doing a local wound care of the feet. Discussion done with Dr. Renaldo Rolle. He suggested amputation of the leg. I will consult with Dr. Nancy Hudson, vascular surgeon having nonhealing, ischemic gangrenous toes bilaterally actually. Necrotic changes in the patient's toes painted with Betadine and left open into the air . Multi Podus boots will be placed. Dr. Renaldo Rolle had discussion done with the patient's , patient's daughter and patient, and I, myself explained with Dr. Renaldo Rolle and with the patient. Patient agreed, will follow up surgery. Repeat labs. We will follow up. Shivani Walters MD MTDD
--- NOTE | 2018-03-02 09:32 | CP.PCM.PN ---
<sIh Mejia - Last Filed: 03/02/18 09:27> Subjective - Date & Time of Evaluation Date of Evaluation: 03/02/18 Time of Evaluation: 09:27 - Subjective Subjective: Podiatry Progress Note for Dr. Irvin 77M seen and examined at bedside for b/l gangrenous changes to R first, fourth, fifth digits and left third and fourth digits. Patient is AAO x 3 and NAD, resting comfortably in bed. Denies any acute overnight events or new pedal complaints at this time. Denies any recent N/V/F/C/CP/SOB/D/posterior calf pain when squeezed. Objective - Vital Signs/Intake and Output Vital Signs (last 24 hours): Temp Pulse Resp BP Pulse Ox 97.4 F L 73 18 131/68 95 03/02/18 06:00 03/02/18 06:00 03/02/18 06:00 03/02/18 06:00 03/02/18 06:00 Intake and Output: 03/02/18 03/02/18 06:59 18:59 Intake Total 355 Balance 355 - Medications Medications: Current Medications Acetaminophen (Tylenol 325mg Tab) 650 mg PO Q6H PRN PRN Reason: Pain, severe (8-10) Last Admin: 02/27/18 17:31 Dose: 650 mg Acetaminophen (Tylenol 650mg/20.3ml Solution Ud) 650 mg PO Q6H PRN PRN Reason: Pain, moderate (4-7) Last Admin: 02/23/18 23:11 Dose: 650 mg Albuterol/Ipratropium (Duoneb 3 Mg/0.5 Mg (3 Ml) Ud) 3 ml IH [id number] [facility] Last Admin: 03/02/18 07:34 Dose: Not Given Amlodipine Besylate (Norvasc) 10 mg PO DAILY [facility] Last Admin: 03/01/18 09:18 Dose: 10 mg Atorvastatin Calcium (Lipitor) 20 mg PO DIN [facility] Last Admin: 03/01/18 17:14 Dose: 20 mg Calcium Carbonate (Caltrate) 600 mg PO DAILY [facility] Last Admin: 03/01/18 09:17 Dose: 600 mg Cilostazol (Pletal) 100 mg PO BID [facility] Last Admin: 03/01/18 17:14 Dose: 100 mg Doxercalciferol (Hectorol) 0.5 mcg PO DAILY [facility] Last Admin: 03/01/18 09:18 Dose: 0.5 mcg Ergocalciferol (Drisdol 50,000 Intl Units Cap) 1 cap PO Q7D [facility] Last Admin: 02/23/18 14:51 Dose: 1 cap Heparin Sodium (Porcine) (Heparin) 5,000 units SC Q12 MARGOTH PRN Reason: Protocol Last Admin: 03/01/18 21:57 Dose: 5,000 units Hydromorphone HCl (Dilaudid) 0.25 mg IVP Q6 PRN PRN Reason: Pain, severe (8-10) Potassium Chloride 20 meq/Sodium Bicarbonate 50 meq/Dextrose/Sodium Chloride 1, 060 mls @ 80 mls/hr IV .[id number] [facility] Last Admin: 03/01/18 14:13 Dose: 80 mls/hr Iron Sucrose 100 mg/ Sodium (Chloride) 105 mls @ 210 mls/hr IVPB QWK [facility] Last Admin: 02/28/18 11:27 Dose: 210 mls/hr Iron Sucrose (Venofer) 100 mg IV QWK [facility] Last Admin: 02/28/18 11:21 Dose: Not Given Metoprolol Tartrate (Lopressor) 25 mg PO BID [facility] Last Admin: 03/01/18 17:14 Dose: 25 mg Pantoprazole Sodium (Protonix Ec Tab) 40 mg PO 0600,1600 [facility] Last Admin: 03/02/18 06:04 Dose: 40 mg Pentoxifylline (Pentoxil) 400 mg PO TID [facility] Last Admin: 03/01/18 17:14 Dose: 400 mg Tramadol HCl (Ultram) 50 mg PO TID [facility] Last Admin: 03/01/18 17:14 Dose: 50 mg Vancomycin HCl (Vancocin 25 Mg/Ml (Oral Use)) 250 mg PO Q6 [facility] PRN Reason: Protocol Stop: 03/04/18 18:01 Last Admin: 03/01/18 23:48 Dose: Not Given - Labs Labs: 03/02/18 06:20 03/01/18 08:15 - Constitutional Appears: Well, Non-toxic, No Acute Distress - Head Exam Head Exam: ATRAUMATIC, NORMOCEPHALIC - Extremities Exam Additional comments: Bilateral LE focused exam Vasc: DP and PT pulses unpalpable b/l, temperature gradient cool to cool, no edema noted to the LE, CFT delayed to the digits Derm: right hallux wound with demarcated dry eschar at distal tuft and distal medial margin; 4th and 5th toes with dry demarcated eschars at distal rojelio as well, no fluctanance, no abscess, no clinical signs of infection, left foot digit 3 and 4 appear hyperpigmented and gangrenous with no open lesions, distinct demarcation noted. No drainage, no erythema, no streaking, no clinical suspicion of active infection. Neuro: Epicritic and protective sensation grossly diminished b/l Ortho: severe pain noted with light palpation to the right hallux and generalized forefoot most likely secondary to ischemic changes, mild pain on the left forefoot, patient unable to MM secondary to guarding. - Neurological Exam Neurological Exam: Alert, Awake, Oriented x3 - Psychiatric Exam Psychiatric exam: Normal Affect, Normal Mood Assessment and Plan - Assessment and Plan (Free Text) Assessment: 77M seen and examined at bedside for b/l gangrenous changes to R first, fourth, fifth digits and left third and fourth digits. No clinical signs of infection Plan: Patient seen and evaluated Plan discussed with attending Dr. Irvin Afebrile, WBC 17.2 from 20.9. Gangrenous digits are unlikely source of leukocytosis as there are no clinical signs of infection Continue pain meds Wound cx 02/24: Coag Neg Staph Continue abx per ID X-rays on 02/24/18- WNL no bony pathology noted, no OM Duplex RLE arterial US- Impression: 1. New left iliac occlusive disease 2. Right calf PVR waveform does not augment. Suggest recent right SFA intervention re-occluded 3. Severe bilateral tibial disease Continue PT All gangrenous changes painted with betadine and left open to air No plan for surgical intervention at this time Podiatry will continue to follow while patient in house <Sylwia Irvin - Last Filed: 03/08/18 20:16> Objective - Vital Signs/Intake and Output Vital Signs (last 24 hours): Temp Pulse Resp BP Pulse Ox 98.6 F 64 20 123/67 95 03/08/18 06:00 03/08/18 11:15 03/08/18 06:00 03/08/18 11:15 03/08/18 06:00 - Labs Labs: 03/08/18 08:00 03/08/18 08:00 PT 12.7 SECONDS (9.4-12.5) H 03/04/18 13:00 INR 1.10 (0.93-1.08) H 03/04/18 13:00 APTT 30.6 Seconds (25.1-36.5) 03/04/18 13:00 Attending/Attestation - Attestation I have personally seen and examined this patient.: Yes I have fully participated in the care of the patient.: Yes I have reviewed all pertinent clinical information, including history, physical exam and plan: Yes
[2018-03-02] MEDS: SODIUM BICARBONATE IV SCH (09:36)
[2018-03-02] MEDS: POTASSIUM CHLORIDE IV SCH (09:36)
[2018-03-02] MEDS: [UNRECOGNIZED DRUG - OTHER] IV SCH (09:36)
[2018-03-02] MEDS: Cilostazol 100 mg Tab UD PO SCH ×2 (09:38→17:31)
[2018-03-02] MEDS: Vancomycin 25 MG/ML PO SCH ×2 (11:31→17:29)
--- NOTE | 2018-03-02 13:04 | CP.PCM.PN ---
Subjective - Date & Time of Evaluation Date of Evaluation: 03/02/18 Time of Evaluation: 11:50 - Subjective Subjective: No fevers, not in distress, afebrile. No diarrhea. Objective - Vital Signs/Intake and Output Vital Signs (last 24 hours): Temp Pulse Resp BP Pulse Ox 97.4 F L 73 18 134/68 95 03/02/18 06:00 03/02/18 06:00 03/02/18 06:00 03/02/18 09:37 03/02/18 06:00 Intake and Output: 03/02/18 03/02/18 06:59 18:59 Intake Total 355 Balance 355 - Medications Medications: Current Medications Acetaminophen (Tylenol 325mg Tab) 650 mg PO Q6H PRN PRN Reason: Pain, severe (8-10) Last Admin: 02/27/18 17:31 Dose: 650 mg Acetaminophen (Tylenol 650mg/20.3ml Solution Ud) 650 mg PO Q6H PRN PRN Reason: Pain, moderate (4-7) Last Admin: 02/23/18 23:11 Dose: 650 mg Albuterol/Ipratropium (Duoneb 3 Mg/0.5 Mg (3 Ml) Ud) 3 ml IH [id number] [facility] OF [facility] Last Admin: 03/02/18 07:34 Dose: Not Given Amlodipine Besylate (Norvasc) 10 mg PO DAILY [facility] Last Admin: 03/02/18 09:37 Dose: 10 mg Atorvastatin Calcium (Lipitor) 20 mg PO DIN [facility] Last Admin: 03/01/18 17:14 Dose: 20 mg Calcium Carbonate (Caltrate) 600 mg PO DAILY [facility] Last Admin: 03/02/18 09:37 Dose: 600 mg Cilostazol (Pletal) 100 mg PO BID [facility] Last Admin: 03/02/18 09:38 Dose: 100 mg Doxercalciferol (Hectorol) 0.5 mcg PO DAILY [facility] Last Admin: 03/02/18 09:37 Dose: 0.5 mcg Ergocalciferol (Drisdol 50,000 Intl Units Cap) 1 cap PO Q7D [facility] Last Admin: 02/23/18 14:51 Dose: 1 cap Heparin Sodium (Porcine) (Heparin) 5,000 units SC Q12 [facility] PRN Reason: Protocol Last Admin: 03/02/18 09:36 Dose: 5,000 units Hydromorphone HCl (Dilaudid) 0.25 mg IVP Q6 PRN PRN Reason: Pain, severe (8-10) Potassium Chloride 20 meq/Sodium Bicarbonate 50 meq/Dextrose/Sodium Chloride 1, 060 mls @ 80 mls/hr IV .[id number] [facility] Last Admin: 03/02/18 09:36 Dose: 80 mls/hr Iron Sucrose 100 mg/ Sodium (Chloride) 105 mls @ 210 mls/hr IVPB QWK [facility] Last Admin: 02/28/18 11:27 Dose: 210 mls/hr Iron Sucrose (Venofer) 100 mg IV QWK [facility] Last Admin: 02/28/18 11:21 Dose: Not Given Metoprolol Tartrate (Lopressor) 25 mg PO BID [facility] Last Admin: 03/02/18 09:37 Dose: 25 mg Pantoprazole Sodium (Protonix Ec Tab) 40 mg PO 0600,1600 [facility] Last Admin: 03/02/18 06:04 Dose: 40 mg Pentoxifylline (Pentoxil) 400 mg PO TID [facility] Last Admin: 03/02/18 09:37 Dose: 400 mg Tramadol HCl (Ultram) 50 mg PO TID [facility] Last Admin: 03/02/18 09:37 Dose: 50 mg Vancomycin HCl (Vancocin 25 Mg/Ml (Oral Use)) 250 mg PO Q6 [facility] PRN Reason: Protocol Stop: 03/04/18 18:01 Last Admin: 03/01/18 23:48 Dose: Not Given - Labs Labs: 03/02/18 06:20 03/01/18 08:15 - Constitutional Appears: Chronically Ill - Head Exam Head Exam: NORMAL INSPECTION - Respiratory Exam Respiratory Exam: Decreased Breath Sounds - Cardiovascular Exam Cardiovascular Exam: +S1, +S2 - GI/Abdominal Exam GI & Abdominal Exam: Soft. absent: Tenderness Assessment and Plan - Assessment and Plan (Free Text) Plan: Assessment C. diff. associated diarrhea, clinically improving history of right 1st toe gangrene with no evidence of active infection, as well gangrene on other toes of both feet peripheral vascular disease with necrotic toes and ulceration bilaterally, S/P revascularization consider HCAP, bilateral, clinically improving acute encephalopathy, etiology to be determined, now resolved history of Right foot cellulitis with right hallux gangrene Peripheral vascular disease HTN Plan continue PO Vancomycin day 8 to complete 10 days Podiatry doing local wound care for the feet and will need Vascular intervention
--- NOTE | 2018-03-02 14:01 | PN ---
DATE: 03/02/2018 SUBJECTIVE: The patient is seen lying in bed. He is awake, he is alert. His appetite is poor. He does not eat any food. PHYSICAL EXAMINATION: GENERAL: Elderly male lying in bed. VITAL SIGNS: Blood pressure 134/68, heart rate 73, respiratory rate 18, temperature 97.4. HEENT: Normocephalic, atraumatic, positive pallor. NECK: Supple, no JVD. LUNGS; Bilateral equal entry, bilateral equal expansion, no rales. CARDIAC: S1, S2. Regular rate and rhythm. No murmur, no rub. ABDOMEN: Soft, nondistended, nontender. Bowel sounds present. EXTREMITIES: Dressing of both feet. INTAKE AND OUTPUT: 2180/700. LABORATORY DATA: WBC 17, hemoglobin 8.4, hematocrit 25, platelets 342. Sodium 138, potassium 3.9, chloride 105, CO2 23, BUN 43, creatinine 2.8, glucose 110, calcium 7.4, albumin 2.6, corrected calcium 8.4. CURRENT MEDICATIONS: Calcium carbonate Dilaudid, Drisdol, DuoNeb, Hectorol, Lopressor, amlodipine, pentoxifylline, cilostazol, IV fluids with sodium bicarbonate and potassium. ASSESSMENT AND PLAN: 1. Severe peripheral vascular disease. 2. Gangrene of multiple toes on the right foot. 3. Stable chronic kidney disease stage IV. 4. Resolved hypokalemia. 5. Resolved acidosis. 6. Severe anemia, anemia of chronic disease and chronic kidney disease, status post 1 unit of packed red blood cells yesterday. 7. Sur-vehmzra-uoxbtjjri diabetes mellitus. 8. Hypertension. PLAN: 1. Discontinue IV fluids. 2. Push p.o. intake. 3. Continue antibiotics as per ID recommendations. 4. Continue local wound care. 5. Vascular Surgery evaluation for possible amputation. Latrice Holder MD
[2018-03-02] MEDS: Ergocalciferol 50,000 Intl Units Cap PO SCH (14:04)
--- NOTE | 2018-03-02 17:46 | PN ---
DATE: 03/02/2018 SUBJECTIVE: The patient's history is that of a 77-year-old man with chronic renal failure and PAD who had undergone angiogram and angioplasty of the iliac artery and SFA in 11/13/2017 for rest pain of the right foot and gangrenous toes. After that, patient was sent to rehabilitation, but failed to improve. Pain persists and had increase in severity to the point that he request something definitive to be performed. The last time, the patient was walking was around [place] time. Shortly after that he developed rest pain of the foot and he had been bedridden ever since. PAST MEDICAL HISTORY: Per the resident's history and physical. REVIEW OF SYSTEMS: Per the resident's history and physical. SOCIAL HISTORY: The patient is a heavy smoker and stopped in September. PHYSICAL EXAMINATION: GENERAL: Significant for his mental status, which is clear and oriented. HEENT: Within normal limits. Patient is emaciated. CHEST: Clear. HEART: Regular rhythm. ABDOMEN: Soft. EXTREMITIES: Show extreme muscle wasting of both thighs. There is palpable femoral pulse and palpable popliteal pulse. There is no palpable pulse in the pedal area. There is gangrenous toes involving 2-3 toes on both feet. The right foot is swollen and is tender to palpation at the metatarsal area. On the left side, the foot is also warm and there is no pain on palpitation of the metatarsal area. A gangrenous change on the tip of the toes on both feet. LABORATORY DATA: Patient's white count has decreased to 14.6, hemoglobin is 8.1. Chemistry show a sodium of 132, potassium 3.6, chloride 105, carbon dioxide 16, anion gap 14, BUN of 83, creatinine is 4.5. GFR is 13. IMPRESSION AND PLAN: 1. Gangrenous toes with extreme rest pain. In view of the patient's emaciation and the presence of knee contracture, doubt the patient will be a rehabilitable candidate. Also, the gangrenous change on the left foot is worrisome and above-knee amputation of the right leg is recommended and the patient said that he would discuss that with his . 2. Renal failure. Patient has reached to the point of renal dialysis. 3. We decided on the need for angiogram of the left foot pending recommendation from Nephrology. Nancy Hudson MD [facility] # [id number]
[2018-03-02] MEDS ORDERED: HYDROmorphone 0.5 mg/0.5 ml ISec IVP PRN (21:36)
[2018-03-03] MEDS: Albuterol-Ipratrop 3 mg / 0.5 (3 ml) UD IH SCH ×4 (01:43→21:31)
--- NOTE | 2018-03-03 01:48 | PN ---
DATE: 03/02/2018 PULMONARY PROGRESS NOTE REFERRING PHYSICIAN: Shivani Walters MD SUBJECTIVE: The patient is lying in the bed, head at 45 degrees. Night was unremarkable. No headache. No rhinitis. No cough, no sputum production. No nausea, no vomiting. Still has a bilateral lower extremity pain. OBJECTIVE: GENERAL: In no acute distress. VITAL SIGNS: Temperature is 98, heart rate is 62, respiratory rate is 18, blood pressure 136/81, pulse ox 94% on room air. HEENT: Moist mucous membrane. Crowded airway. NECK: Supple. No JVD. LUNGS: Has a fair airflow with rhonchi. HEART: S1 and S2. ABDOMEN: Soft, nontender. No organomegaly. EXTREMITIES: Have ischemic changes of both toes. NEUROLOGICAL: Awake and alert. Follows simple commands. MEDICATIONS: He is on calcium carbonate 600 mg daily, Dilaudid 0.25 mg every 6 hours p.r.n., vitamin D 50,000 units every 7 days, DuoNeb every 6 hours round the clock, heparin 5000 units subcutaneously every 12 hours, supplemental iron, Lipitor 20 mg daily, metoprolol tartrate 25 mg twice a day, Norvasc 10 mg daily, pentoxifylline 400 mg three times a day, Pletal 100 mg daily, Protonix 40 mg twice a day, Tylenol p.r.n. basis, Ultram 50 mg three times a day, vancomycin 250 every 6 hours, Venofer 100 mg weekly. LABORATORY DATA: Shows hemoglobin 8.4, hematocrit 25.4, WBC 17.2, platelet is 342. IMPRESSION AND PLAN: Chronic obstructive lung disease, renal failure, perihilar infiltrate, multiple pressure ulcers, pulmonary hypertension, history of cerebrovascular accident, lower extremity ischemia, gangrene. Patient seen by Vascular and Podiatry. Pulmonary point of view, doing well. Keep head at 45 degrees. Encouraged p.o. intake. Gastric prophylaxis, deep vein thrombosis prophylaxis, peripheral vasodilators. Thank you and we will follow with you. Jt Hayden MD
[2018-03-03] MEDS: Vancomycin 25 MG/ML PO SCH ×4 (02:01→17:46)
--- NOTE | 2018-03-03 02:19 | PN ---
DATE: 03/02/2018 SUBJECTIVE: The patient is a 77-year-old male. The patient is seen and examined on the bedside. who is a homemaker is sitting with the patient. Still having pain in both extremities. Not eating very well. Complaining about pain. Getting vancomycin. Discussion done with nursing staff. According to vascular surgeon, the patient had to complete vancomycin course before she has to plan for surgery. PHYSICAL EXAMINATION: VITAL SIGNS: Temperature 97.4, pulse 62, blood pressure 136/81, respiratory rate 18. HEENT: Head normocephalic, atraumatic. Eyes PERRLA. Extraocular muscles intact. Conjunctivae clear. Nose patent. Mucous membrane moist. NECK: Supple. No carotid bruit. No JVD or thyromegaly. CHEST: Bilaterally symmetrical. HEART: S1 and S2 positive. LUNGS: Clear to auscultation. ABDOMEN: Soft. Bowel sounds positive. No organomegaly. EXTREMITIES: No edema. No cyanosis. NEUROLOGICAL: The patient is awake and alert. Moving all 4 extremities. No focal deficits. LABORATORY DATA: White blood cells 7.2, hemoglobin 8.4, hematocrit 25.4, platelets 342. Sodium 138, potassium 3.9, BUN 43, creatinine 3.8, calcium. MEDICATIONS: Calcium carbonate, hydromorphone, vitamin D, DuoNeb, heparin, iron, Lipitor, Lopressor, amlodipine, Pletal, Protonix, tramadol, Venofer, vancomycin. ASSESSMENT AND PLAN: Mr. Geovanna Guerra is a 77-year-old male with leukocytosis, anemia, renal insufficiency, improving very slowly, hypocalcemia, abnormal liver function tests, had peripheral arterial disease, who had undergone angiogram and angioplasty of iliac artery and superficial femoral artery. At rest, pain of the right foot and the gangrenous toes. Failed to improve. Pain persists and had increased in intensity to the point that he has requested something definitive to be performed. Last time the patient was walking around was on [place]. Shortly after that, he progressed pain of the foot and he had been bedridden ever since. The patient has a history of a heavy smoking. Now he has gangrenous toes with extreme rest pain and presence of knee contractures. Doubt if the patient will be a stable candidate. Right leg above knee amputation is recommended, and the patient said that he would discuss with his , and now finally he said yes. Dr. Nancy Hudson want to do angiogram of the left foot pending recommendations from the first officer and flight instructor, Dr. Holder. The patient has history of chronic obstructive pulmonary disease, peripheral infiltrates, multiple pressure ulcers, pulmonary hypertension, history of cerebrovascular accident. was on the bedside, discussion done. All questions answered. Even came in my office. Length of time discussion done, all questions answered. We will follow up. Shivani Walters MD MTDD
[2018-03-03] MEDS: Pantoprazole 40 mg EC Tab PO SCH ×2 (06:11→17:45)
[2018-03-03] MEDS: Cilostazol 100 mg Tab UD PO SCH ×3 (09:16→18:45)
--- NOTE | 2018-03-03 12:36 | CP.PCM.PN ---
<Ish Mejia - Last Filed: 03/03/18 12:31> Subjective - Date & Time of Evaluation Date of Evaluation: 03/03/18 Time of Evaluation: 12:31 - Subjective Subjective: Podiatry Progress Note for Dr. Atul ThomasonM seen and examined at bedside for b/l gangrenous changes to R first, fourth, fifth digits and left third and fourth digits. Patient is AAO x 3 and NAD, resting comfortably in bed. Denies any acute overnight events. States that pain in his feet is increasing. Multipodus boots not in place to b/l feet. Patient states that they were too uncomfortable. Denies any recent N/V/F/C/CP/SOB/D/ posterior calf pain when squeezed. Objective - Vital Signs/Intake and Output Vital Signs (last 24 hours): Temp Pulse Resp BP Pulse Ox 97.5 F L 85 20 142/81 96 03/03/18 06:00 03/03/18 06:00 03/03/18 06:00 03/03/18 09:14 03/03/18 06:00 Intake and Output: 03/03/18 03/03/18 06:59 18:59 Intake Total 480 Balance 480 - Medications Medications: Current Medications Acetaminophen (Tylenol 325mg Tab) 650 mg PO Q6H PRN PRN Reason: Pain, severe (8-10) Last Admin: 02/27/18 17:31 Dose: 650 mg Acetaminophen (Tylenol 650mg/20.3ml Solution Ud) 650 mg PO Q6H PRN PRN Reason: Pain, moderate (4-7) Last Admin: 02/23/18 23:11 Dose: 650 mg Albuterol/Ipratropium (Duoneb 3 Mg/0.5 Mg (3 Ml) Ud) 3 ml IH [id number] [facility] Last Admin: 03/03/18 07:32 Dose: Not Given Amlodipine Besylate (Norvasc) 10 mg PO DAILY [facility] Last Admin: 03/03/18 09:14 Dose: 10 mg Atorvastatin Calcium (Lipitor) 20 mg PO DIN [facility] Last Admin: 03/02/18 17:31 Dose: 20 mg Calcium Carbonate (Caltrate) 600 mg PO DAILY [facility] Last Admin: 03/03/18 09:16 Dose: 600 mg Cilostazol (Pletal) 100 mg PO BID [facility] Last Admin: 03/03/18 09:16 Dose: 100 mg Doxercalciferol (Hectorol) 0.5 mcg PO DAILY [facility] Last Admin: 03/03/18 09:16 Dose: 0.5 mcg Ergocalciferol (Drisdol 50,000 Intl Units Cap) 1 cap PO Q7D [facility] Last Admin: 03/02/18 14:04 Dose: 1 cap Heparin Sodium (Porcine) (Heparin) 5,000 units SC Q12 MARGOTH PRN Reason: Protocol Last Admin: 03/03/18 09:16 Dose: 5,000 units Hydromorphone HCl (Dilaudid) 1 mg IVP Q6 PRN PRN Reason: PAIN SEVERE [8-10] Iron Sucrose 100 mg/ Sodium (Chloride) 105 mls @ 210 mls/hr IVPB QWK [facility] Last Admin: 02/28/18 11:27 Dose: 210 mls/hr Iron Sucrose (Venofer) 100 mg IV QWK [facility] Last Admin: 02/28/18 11:21 Dose: Not Given Metoprolol Tartrate (Lopressor) 50 mg PO BID [facility] Pantoprazole Sodium (Protonix Ec Tab) 40 mg PO 0600,1600 [facility] Last Admin: 03/03/18 06:11 Dose: 40 mg Pentoxifylline (Pentoxil) 400 mg PO TID [facility] Last Admin: 03/03/18 09:16 Dose: 400 mg Tramadol HCl (Ultram) 50 mg PO TID [facility] Last Admin: 03/03/18 09:16 Dose: 50 mg Vancomycin HCl (Vancocin 25 Mg/Ml (Oral Use)) 250 mg PO Q6 [facility] PRN Reason: Protocol Stop: 03/04/18 18:01 Last Admin: 03/03/18 06:11 Dose: 250 mg - Labs Labs: 03/02/18 06:20 03/01/18 08:15 - Constitutional Appears: Well, Non-toxic, No Acute Distress - Head Exam Head Exam: ATRAUMATIC, NORMOCEPHALIC - Extremities Exam Additional comments: Bilateral LE focused exam Vasc: DP and PT pulses unpalpable b/l, temperature gradient cool to cool, no edema noted to the LE, CFT delayed to the digits Derm: right hallux wound with demarcated dry eschar at distal tuft and distal medial margin; 4th and 5th toes with dry demarcated eschars at distal rojelio as well, no fluctanance, no abscess, no clinical signs of infection, left foot digit 3 and 4 appear hyperpigmented and gangrenous with no open lesions, distinct demarcation noted. No drainage, no erythema, no streaking, no clinical suspicion of active infection. All gangrenous changes noted to be dry and stable. No evidence of new gangrenous changes since yesterday Neuro: Epicritic and protective sensation grossly diminished b/l Ortho: severe pain noted with light palpation to the right hallux and generalized forefoot most likely secondary to ischemic changes, mild pain on the left forefoot, patient unable to MM secondary to guarding. - Neurological Exam Neurological Exam: Alert, Awake, Oriented x3 - Psychiatric Exam Psychiatric exam: Normal Affect, Normal Mood Assessment and Plan - Assessment and Plan (Free Text) Assessment: 78M seen and examined at bedside for b/l gangrenous changes to R first, fourth, fifth digits and left third and fourth digits Plan: Patient seen and evaluated Plan discussed with attending Dr. Pollard WBC 17.2 from 20.9, Afebrile 02/24 Wound cx: Coag Neg Staph X-rays on 02/24/18- WNL no bony pathology noted, no OM Duplex RLE arterial US- Impression: 1. New left iliac occlusive disease 2. Right calf PVR waveform does not augment. Suggest recent right SFA intervention re-occluded 3. Severe bilateral tibial disease All gangrenous changes painted with betadine Patient advised to continue wearing multipodus boots. States that he will wear them when he sleeps at night but doesn't want to wear them now. No plan for surgical intervention at this time Podiatry will continue to follow while patient in house <Jason Pollard - Last Filed: 03/03/18 15:19> Objective - Vital Signs/Intake and Output Vital Signs (last 24 hours): Temp Pulse Resp BP Pulse Ox 97.9 F 69 20 132/80 94 L 03/03/18 14:00 03/03/18 14:00 03/03/18 14:00 03/03/18 14:00 03/03/18 14:00 Intake and Output: 03/03/18 03/03/18 06:59 18:59 Intake Total 480 360 Balance 480 360 - Medications Medications: Current Medications Acetaminophen (Tylenol 325mg Tab) 650 mg PO Q6H PRN PRN Reason: Pain, severe (8-10) Last Admin: 02/27/18 17:31 Dose: 650 mg Albuterol/Ipratropium (Duoneb 3 Mg/0.5 Mg (3 Ml) Ud) 3 ml IH [id number] [facility] Last Admin: 03/03/18 13:37 Dose: Not Given Amlodipine Besylate (Norvasc) 10 mg PO DAILY [facility] Last Admin: 03/03/18 09:14 Dose: 10 mg Atorvastatin Calcium (Lipitor) 20 mg PO DIN [facility] Last Admin: 03/02/18 17:31 Dose: 20 mg Calcium Carbonate (Caltrate) 600 mg PO DAILY [facility] Last Admin: 03/03/18 09:16 Dose: 600 mg Cilostazol (Pletal) 100 mg PO BID [facility] Last Admin: 03/03/18 09:16 Dose: 100 mg Doxercalciferol (Hectorol) 0.5 mcg PO DAILY [facility] Last Admin: 03/03/18 09:16 Dose: 0.5 mcg Ergocalciferol (Drisdol 50,000 Intl Units Cap) 1 cap PO Q7D [facility] Last Admin: 03/02/18 14:04 Dose: 1 cap Heparin Sodium (Porcine) (Heparin) 5,000 units SC Q12 MARGOTH PRN Reason: Protocol Last Admin: 03/03/18 09:16 Dose: 5,000 units Hydralazine HCl (Apresoline) 10 mg PO QID PRN PRN Reason: for sbp>160 Hydromorphone HCl (Dilaudid) 1 mg IVP Q6 PRN PRN Reason: PAIN SEVERE [8-10] Iron Sucrose 100 mg/ Sodium (Chloride) 105 mls @ 210 mls/hr IVPB QWK [facility] Last Admin: 02/28/18 11:27 Dose: 210 mls/hr Iron Sucrose (Venofer) 100 mg IV QWK [facility] Last Admin: 02/28/18 11:21 Dose: Not Given Metoprolol Tartrate (Lopressor) 50 mg PO BID [facility] Pantoprazole Sodium (Protonix Ec Tab) 40 mg PO 0600,1600 [facility] Last Admin: 03/03/18 06:11 Dose: 40 mg Pentoxifylline (Pentoxil) 400 mg PO TID [facility] Last Admin: 03/03/18 09:16 Dose: 400 mg Tramadol HCl (Ultram) 50 mg PO TID [facility] Last Admin: 03/03/18 14:25 Dose: 50 mg Vancomycin HCl (Vancocin 25 Mg/Ml (Oral Use)) 250 mg PO Q6 [facility] PRN Reason: Protocol Stop: 03/04/18 18:01 Last Admin: 03/03/18 12:15 Dose: 250 mg - Labs Labs: 03/02/18 06:20 03/01/18 08:15 Attending/Attestation - Attestation I have personally seen and examined this patient.: Yes I have fully participated in the care of the patient.: Yes I have reviewed all pertinent clinical information, including history, physical exam and plan: Yes
--- NOTE | 2018-03-03 16:24 | CP.PCM.PN ---
Subjective - Date & Time of Evaluation Date of Evaluation: 03/03/18 Time of Evaluation: 12:10 - Subjective Subjective: Comfortable, no fevers, no diarrhea. Objective - Vital Signs/Intake and Output Vital Signs (last 24 hours): Temp Pulse Resp BP Pulse Ox 97.9 F 70 18 125/61 95 03/02/18 21:32 03/02/18 21:32 03/02/18 21:32 03/02/18 21:32 03/02/18 21:32 Intake and Output: 03/03/18 03/03/18 06:59 18:59 Intake Total 480 Balance 480 - Medications Medications: Current Medications Acetaminophen (Tylenol 325mg Tab) 650 mg PO Q6H PRN PRN Reason: Pain, severe (8-10) Last Admin: 02/27/18 17:31 Dose: 650 mg Acetaminophen (Tylenol 650mg/20.3ml Solution Ud) 650 mg PO Q6H PRN PRN Reason: Pain, moderate (4-7) Last Admin: 02/23/18 23:11 Dose: 650 mg Albuterol/Ipratropium (Duoneb 3 Mg/0.5 Mg (3 Ml) Ud) 3 ml IH [id number] [facility] Last Admin: 03/03/18 01:43 Dose: Not Given Amlodipine Besylate (Norvasc) 10 mg PO DAILY [facility] Last Admin: 03/02/18 09:37 Dose: 10 mg Atorvastatin Calcium (Lipitor) 20 mg PO DIN [facility] Last Admin: 03/02/18 17:31 Dose: 20 mg Calcium Carbonate (Caltrate) 600 mg PO DAILY [facility] Last Admin: 03/02/18 09:37 Dose: 600 mg Cilostazol (Pletal) 100 mg PO BID [facility] Last Admin: 03/02/18 17:31 Dose: 100 mg Doxercalciferol (Hectorol) 0.5 mcg PO DAILY [facility] Last Admin: 03/02/18 09:37 Dose: 0.5 mcg Ergocalciferol (Drisdol 50,000 Intl Units Cap) 1 cap PO Q7D [facility] Last Admin: 03/02/18 14:04 Dose: 1 cap Heparin Sodium (Porcine) (Heparin) 5,000 units SC Q12 MARGOTH PRN Reason: Protocol Last Admin: 03/02/18 22:57 Dose: Not Given Hydromorphone HCl (Dilaudid) 1 mg IVP Q6 PRN PRN Reason: PAIN SEVERE [8-10] Iron Sucrose 100 mg/ Sodium (Chloride) 105 mls @ 210 mls/hr IVPB QWK [facility] Last Admin: 02/28/18 11:27 Dose: 210 mls/hr Iron Sucrose (Venofer) 100 mg IV QWK [facility] Last Admin: 02/28/18 11:21 Dose: Not Given Metoprolol Tartrate (Lopressor) 25 mg PO BID [facility] Last Admin: 03/02/18 17:31 Dose: 25 mg Pantoprazole Sodium (Protonix Ec Tab) 40 mg PO 0600,1600 [facility] Last Admin: 03/03/18 06:11 Dose: 40 mg Pentoxifylline (Pentoxil) 400 mg PO TID [facility] Last Admin: 03/02/18 17:31 Dose: 400 mg Tramadol HCl (Ultram) 50 mg PO TID [facility] Last Admin: 03/02/18 17:31 Dose: 50 mg Vancomycin HCl (Vancocin 25 Mg/Ml (Oral Use)) 250 mg PO Q6 [facility] PRN Reason: Protocol Stop: 03/04/18 18:01 Last Admin: 03/03/18 06:11 Dose: 250 mg - Labs Labs: 03/02/18 06:20 03/01/18 08:15 - Constitutional Appears: Chronically Ill - Head Exam Head Exam: NORMAL INSPECTION - Respiratory Exam Respiratory Exam: Decreased Breath Sounds - Cardiovascular Exam Cardiovascular Exam: +S1, +S2 - GI/Abdominal Exam GI & Abdominal Exam: Soft. absent: Tenderness Assessment and Plan - Assessment and Plan (Free Text) Plan: Assessment C. diff. 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
--- NOTE | 2018-03-03 17:16 | PN ---
DATE: 03/03/2018 SUBJECTIVE: The patient is currently seen on 5R. He appears to be somewhat comfortable. He has less pain in his foot. The patient is anticipating having a right above-knee amputation later this week. There was some question about the possibility of doing an angiogram. I did discuss with the patient in detail that if he does have a dye study, there is a very good chance his kidney function will worsen and he could end up on dialysis. The patient is not interested in taking that chance. MEDICATIONS: List reviewed. The patient is on hydralazine, Carafate, vitamin D, Dilaudid, DuoNeb, heparin, IV iron, Lipitor, Lopressor, Norvasc, Pentoxil, Pletal, Protonix, Tylenol p.r.n., Ultram, oral vancomycin, and Venofer. PHYSICAL EXAMINATION: INTAKE/OUTPUT: Intake 480, output not charted. VITAL SIGNS: Blood pressure 132/80, temperature 97.9, respiratory rate is 20 with a pulse of 69. HEENT: Shows him to be normocephalic, atraumatic. Conjunctivae are pale. Sclerae are nonicteric. NECK: Supple. No neck vein distention. CHEST: Clear to auscultation and percussion with no rales, rhonchi, or wheezing. CARDIOVASCULAR: Shows a regular rate and rhythm with MR/TR. No S3. No S4. No rub. ABDOMEN: Soft. Bowel sounds are normal. No rebound, guarding, or masses. EXTREMITIES: Show no edema. Positive cyanotic and gangrenous changes of his toes bilaterally, right greater than left. Severely diminished lower extremity pulses. LABORATORY DATA AND IMAGING STUDIES: CBC: White blood cell count from yesterday 17.2 with a hemoglobin of 8.4, platelet count is 342,000. Chemistries show a stable BUN and creatinine at 43 and 3.8. His baseline creatinine had been in the low three range. BUN is down from a high of 107 with hydration. Calcium is 7.4. Glucose 110. Last phosphorus level was 3.1 with a magnesium level 1.5 going back 1 week. Liver enzymes are normal. Microbiology: Toe cultures are positive for coag-negative staph. C. Diff was positive on 02/22/2018 and negative on 02/26/2018. The patient is completing a course of oral vancomycin therapy. ASSESSMENT: 1. Acute renal failure superimposed on chronic kidney disease stage IV. He is still above his baseline creatinine in the low three range. This is in the setting of volume depletion, severe peripheral vascular disease, history of chronic kidney disease, and Clostridium difficile colitis. Lengthy discussion with the patient about the risks of dye studies. We both agree that there is probably very little benefit in doing an angiogram of the lower extremity. The patient should proceed with amputation as scheduled. In all likelihood, if he would have a dye study, he would likely end up very close to needing dialysis. 2. History of right renal artery stenosis. 3. History of hypertension, currently controlled on present medication. The patient is not a candidate to receive an ELOY inhibitor or an angiotensin receptor gi. We will continue blood pressure control with calcium-channel gi therapy, beta-ig therapy and hydralazine on an as-needed basis. 4. History of severe peripheral vascular disease, history of cigarette smoking. Gangrenous changes bilateral lower extremity, right greater than left. 5. History of secondary hyperparathyroidism with vitamin D deficiency. The patient will continue vitamin D supplements. Last phosphorus level goes back 1 week. It was 3.1. The patient will continue a renal diet and start binder therapy if necessary. 6. History of pulmonary hypertension, stable. 7. History of mitral regurgitation, tricuspid regurgitation, stable. Ejection fraction 61%. 8. History of Clostridium difficile colitis, resolving with oral vancomycin therapy. PLAN: 1. Agree with Dr. Hudson in scheduling the patient for surgery, possible AKA of the right lower extremity. 2. From a renal standpoint, the dye study would place the patient very close to needing dialysis, so I think this should be avoided at all cause. 3. Continue present medical therapy including blood pressure medications and diet therapy. 4. Continue to monitor labs closely. Mendez Mack MD
--- NOTE | 2018-03-03 20:58 | CON ---
DATE: 03/03/2018 CARDIOLOGY CONSULTATION REASON FOR CONSULTATION: Preop evaluation, risk stratification for possible right AKA, peripheral arterial disease. BRIEF CLINICAL HISTORY: This is a 77-year-old male, active tobacco abuse, recently quit before this admission, resident of assisted, he used to smoke 2 packs of cigarettes, history of peripheral arterial disease, history of chronic renal insufficiency, peripheral intervention done and came with gangrenous toes, probably requiring right AKA, so Cardiology consult was called for preop evaluation and risk stratification. Patient denies any chest pain, shortness of breath, any palpitation. PAST MEDICAL HISTORY: Significant for severe PAD, status post revascularization by Interventional Radiology, chronic cellulitis, gangrene of the right toe, history of CKD, status post renal angioplasty in the past. PAST SURGICAL HISTORY: Significant for right hip arthroplasty and peripheral intervention. ALLERGIES: NO KNOWN DRUG ALLERGY. CURRENT MEDICATION: Patient is taking at home, iron, Venofer, acetaminophen, atorvastatin, metoprolol, amlodipine, . PREVIOUS CARDIAC WORKUP: As follows. Patient had echocardiography on 11/10/2017, which shows a normal LV function, mitral regurgitation [id number], mild tricuspid regurgitation, RV systolic pressure of 50, ejection fraction 61%. REVIEW OF SYSTEMS: As per HPI. PHYSICAL EXAMINATION: VITAL SIGNS: Temperature afebrile, heart rate 85, blood pressure 142/81. HEENT: PERRLA. Extraocular muscles intact. NECK: Supple. No carotid bruit. No thyromegaly. CHEST: Clear to auscultation. HEART: S1 and S2, regular. ABDOMEN: Soft. EXTREMITIES: Clubbing and cyanosis negative. LABORATORY DATA: Blood workup as follows: WBC 17.2, hemoglobin 8.4, hematocrit 25.4, platelet count 354. Chemistry shows sodium 130, potassium 3.9, chloride 105, carbon dioxide 23, anion gap of 43, BUN 14, creatinine 3.8. IMPRESSION AND PLAN: Severe peripheral arterial disease, renal insufficiency, gangrene of the toe requiring above-knee amputation, tobacco abuse, recently quit, used to smoke 2 pack a day. Patient had echocardiography on 11/10/2017 that showed normal left ventricular size, normal left ventricular function, [id number] mitral regurgitation, mild tricuspid regurgitation, right ventricular systolic pressure 50, and calculated ejection fraction of 61%. Multiple risk factors for coronary artery disease from patient's preoperative evaluation for above-knee amputation. Since the patient has a gangrene and needs to go for urgent surgical intervention, patient can go with [id number] risk because of underlying comorbidity. No evidence of arrhythmia, chest pain, or congestive heart failure. We will continue perioperative beta-gi, adequate dose, control aggressively blood pressure. We will get also lipid profile, TSH, hemoglobin A1c. Further recommendation depending upon hospital course. We will follow with you. Though overall, as mentioned above, the patient is at high risk because of underlying comorbidity, but chance is very limited because otherwise patient will with sepsis, patient has still elevated WBC at 17,000. We will follow with you. Thank you, Dr. Walters, for providing us the opportunity in taking care of the patient, Geovanna Guerra. Jt Figueroa MD
[2018-03-04] MEDS: Vancomycin 25 MG/ML PO SCH ×2 (00:16→06:43)
[2018-03-04] MEDS: Albuterol-Ipratrop 3 mg / 0.5 (3 ml) UD IH SCH ×4 (02:15→21:16)
--- NOTE | 2018-03-04 04:18 | PN ---
DATE: 03/03/2018 REFERRING PHYSICIAN: Shivani Walters MD SUBJECTIVE: The patient is lying in the bed, head at 45 degrees. No headache. No rhinitis. No nausea. No vomiting. No diarrhea. Does have a leg pain. OBJECTIVE: GENERAL: In no acute distress. VITAL SIGNS: Temperature is 98, heart rate is 60, respiratory rate is 18, blood pressure 114/71, pulse ox is 98% on room air. HEENT: Moist mucous membranes. No ulcer or thrush. NECK: Supple. No JVD. LUNGS: Have a fair airflow with rhonchi. HEART: S1 and S2. ABDOMEN: Soft and nontender. No organomegaly. EXTREMITIES: Has bilateral toe ischemia. NEUROLOGIC: Awake and alert. Follows simple commands. MEDICATIONS: He is on hydralazine 10 mg four times a day p.r.n., calcium carbonate 600 mg daily, Dilaudid 1 mg every 6 hours p.r.n., vitamin D 50,000 units weekly, DuoNeb every 6 hours round the clock, heparin 5000 units subcu every 12 hours, IV iron,also Lipitor 20 mg daily, metoprolol tartrate 50 mg twice a day, Norvasc 10 mg daily, pentoxifylline 400 mg three times a day, Pletal 100 mg twice a day, Protonix 40 mg twice a day, Tylenol p.r.n., Ultram 50 mg three times a day, vancomycin 250 every 6 hours. LABORATORY DATA: Reviewed. No new lab is available since yesterday. IMPRESSION AND PLAN: Chronic obstructive lung disease, renal failure, perihilar infiltrate, multiple pressure ulcers, pulmonary hypertension, history of cerebrovascular accident, lower extremity ischemia, and gangrene. Pulmonary status, he is optimized. Continue bronchodilator. Keep head at 45 degrees. Aspiration precaution. The patient was seen by Cardiology, need Cardiology clearance. Spoke to nursing staff if the patient can be taken out of bed to place in a chair. We will start bedside physical therapy. Thank you very much. We will follow with you. Jt Hayden MD
[2018-03-04] MEDS: Pantoprazole 40 mg EC Tab PO SCH ×2 (06:37→18:28)
[2018-03-04 07:07] LABS: BASO # 0.02 K/mm3 (0.0-2.0); BASO % 0.1 % (0.0-3.0); EOS # 0.5 (0.0-0.7); EOS % 3.1 % (1.5-5.0); GRAN # 12.31 (1.4-6.5); GRAN % 79.9 % (50.0-68.0); HEMOGLOBIN 8.8 g/dL (14.0-18.0); LYMPH # 1.4 (1.2-3.4); MEAN CELL VOLUME 86.1 fl (80.0-105.0); MEAN CORPUSCULAR HEMOGLOBIN 27.8 pg (25.0-35.0); MEAN CORPUSCULAR HGB CONC 32.4 g/dl (31.0-37.0); MEAN PLATELET VOLUME 10.7 fl (7.0-11.0); MONO # 1.2 (0.1-0.6); MONO % 7.9 % (1.0-6.0); RBC 3.16 10^6/uL (3.5-6.1); WHITE BLOOD COUNT 15.4 10^3/ul (4.5-11.0)
[2018-03-04 07:42] LABS: ALB/GLOB RATIO 0.8 (1.1-1.8); ALBUMIN 2.5 g/dL (3.0-4.8); CALCIUM 7.7 mg/dL (8.4-10.5)
--- NOTE | 2018-03-04 07:49 | CP.PCM.PN ---
Subjective - Date & Time of Evaluation Date of Evaluation: 03/04/18 Time of Evaluation: 06:35 - Subjective Subjective: Awake, lying in bed, no distress, complaints of leg pain Reason for consultation and follow up: Cardiac evaluation/clearance for possible amputation of gangrened toes, History of peripheral arterial disease, coronary artery disease,, diastolic CHF, stage 4 chronic kidney disease, GI bleed, and hypertension. Seen and examined by me and Dr. Figueroa Objective - Vital Signs/Intake and Output Vital Signs (last 24 hours): Temp Pulse Resp BP Pulse Ox 97.7 F 60 18 114/71 99 03/03/18 23:11 03/03/18 23:11 03/03/18 23:11 03/03/18 23:11 03/03/18 23:11 Intake and Output: 03/04/18 03/04/18 06:59 18:59 Intake Total 420 Output Total 400 Balance 20 - Medications Medications: Current Medications Acetaminophen (Tylenol 325mg Tab) 650 mg PO Q6H PRN PRN Reason: Pain, severe (8-10) Last Admin: 02/27/18 17:31 Dose: 650 mg Albuterol/Ipratropium (Duoneb 3 Mg/0.5 Mg (3 Ml) Ud) 3 ml IH [id number] [facility] Last Admin: 03/04/18 07:28 Dose: Not Given Amlodipine Besylate (Norvasc) 10 mg PO DAILY [facility] Last Admin: 03/03/18 09:14 Dose: 10 mg Atorvastatin Calcium (Lipitor) 20 mg PO DIN [facility] Last Admin: 03/03/18 17:46 Dose: 20 mg Calcium Carbonate (Caltrate) 600 mg PO DAILY [facility] Last Admin: 03/03/18 15:40 Dose: Not Given Cilostazol (Pletal) 100 mg PO BID [facility] Last Admin: 03/03/18 18:45 Dose: 100 mg Doxercalciferol (Hectorol) 0.5 mcg PO DAILY [facility] Last Admin: 03/03/18 15:40 Dose: Not Given Ergocalciferol (Drisdol 50,000 Intl Units Cap) 1 cap PO Q7D [facility] Last Admin: 03/02/18 14:04 Dose: 1 cap Heparin Sodium (Porcine) (Heparin) 5,000 units SC Q12 [facility] PRN Reason: Protocol Last Admin: 03/03/18 21:48 Dose: Not Given Hydralazine HCl (Apresoline) 10 mg PO QID PRN PRN Reason: for sbp>160 Hydromorphone HCl (Dilaudid) 1 mg IVP Q6 PRN PRN Reason: PAIN SEVERE [8-10] Iron Sucrose 100 mg/ Sodium (Chloride) 105 mls @ 210 mls/hr IVPB QWK [facility] Last Admin: 02/28/18 11:27 Dose: 210 mls/hr Iron Sucrose (Venofer) 100 mg IV QWK [facility] Last Admin: 02/28/18 11:21 Dose: Not Given Metoprolol Tartrate (Lopressor) 50 mg PO BID [facility] Last Admin: 03/03/18 18:45 Dose: 50 mg Pantoprazole Sodium (Protonix Ec Tab) 40 mg PO 0600,1600 [facility] Last Admin: 03/04/18 06:37 Dose: 40 mg Pentoxifylline (Pentoxil) 400 mg PO TID [facility] Last Admin: 03/03/18 18:45 Dose: 400 mg Tramadol HCl (Ultram) 50 mg PO TID [facility] Last Admin: 03/04/18 06:38 Dose: 50 mg Vancomycin HCl (Vancocin 25 Mg/Ml (Oral Use)) 250 mg PO Q6 [facility] PRN Reason: Protocol Stop: 03/04/18 18:01 Last Admin: 03/04/18 06:43 Dose: Not Given - Labs Labs: 03/04/18 06:40 03/04/18 06:40 - Constitutional Appears: No Acute Distress - Head Exam Head Exam: NORMOCEPHALIC - Eye Exam Eye Exam: Normal appearance - ENT Exam ENT Exam: Mucous Membranes Moist - Respiratory Exam Respiratory Exam: Decreased Breath Sounds, NORMAL BREATHING PATTERN - Cardiovascular Exam Cardiovascular Exam: +S1, +S2 - GI/Abdominal Exam GI & Abdominal Exam: Soft, Normal Bowel Sounds - Exam Additional comments: incontinent - Extremities Exam Additional comments: toes black/necrotic - Neurological Exam Neurological Exam: Alert, Awake - Psychiatric Exam Psychiatric exam: Normal Affect, Normal Mood - Skin Skin Exam: Intact, Normal Color, Warm Assessment and Plan - Assessment and Plan (Free Text) Assessment: A 78 year old male who came in to the ER from [facility] due to painful toes. History of peripheral arterial disease,coronary artery disease,, diastolic CHF, stage 4 chronic kidney disease, GI bleed, and hypertension. esophageal ulcers, secondary hyperparathyroidism, right hip surgery, lower extremity angioplasty, smoking for 60 years, quit 5 months ago Plan: Echo was done 10/2017 Mild TR/MR, LVEF 61% High risk for surgery considering co- morbidities Will clear for surgery (cardiac standpoint) and closely follow up postoperatively Continue current treatment Continue current medications Will follow up Plan and treatment discussed with Dr. Figueroa
--- NOTE | 2018-03-04 08:40 | PN ---
DATE: 03/03/2018 SUBJECTIVE: Patient is a 78-year-old male. Patient is seen and examined at the bedside, still having pain in the feet and legs. Not eating very well. No fever, no chills, no diarrhea. No headache, no dizziness. No dysuria, no hematuria. Seen by the assistant clinical nurse manager for surgical clearance. PHYSICAL EXAMINATION: VITAL SIGNS: Temperature 97.9, pulse 70, respiratory rate 18, blood pressure 125/61, pulse oximetry of 95. HEENT: Head: Normocephalic and atraumatic. Eyes: PERRLA. Extraocular muscles are intact. Conjunctivae are clear. Nose: Patent. Mucous membranes are moist. NECK: Supple. No carotid bruit. No JVD or thyromegaly. CHEST: Bilaterally symmetrical. HEART: S1 and S2 positive. LUNGS: Clear to auscultation. ABDOMEN: Soft. Bowel sounds positive. No organomegaly. EXTREMITIES: No edema. No cyanosis. Both legs have swollen feet and toes are gangrenous and getting black. NEUROLOGICAL: aaox3 ,alert. Moving all four extremities. No focal deficit. Follows simple commands. MEDICATIONS: Tylenol, Duoneb, Norvasc, Lipitor, Caltrate, Hectorol, vitamin D, heparin, Dilaudid. LABORATORY DATA: White blood cell 7.3, hemoglobin 8.4, hematocrit 25.4, platelet 342. Sodium 138, potassium 3.9, BUN 43, creatinine 3.8, glucose 110. ASSESSMENT AND PLAN: Mr. Geovanna Guerra is a 78-year-old male with leukocytosis, anemia, renal insufficiency, has Clostridium difficile associated diarrhea, clinically improved, history of right first toe gangrene with no evidence of active infection as well as gangrene of the other toes of both feet, peripheral vascular disease with necrotic toes and ulceration bilaterally, status post revascularization. Consider healthcare-associated pneumonia bilaterally. Clinically improving, acute encephalopathy, etiology to be determined. History of right foot cellulitis with right hallux gangrene, severe peripheral vascular disease, hypertension. Plan is to continue p.o. vancomycin, today is day 9, to be completed 10 days, tomorrow will be the last day of vancomycin. Podiatry doing local wound care for the feet and vascular specialist is on the case. Surgeon is on the case and taximeter repairer is on the case. Patient is seen by the furnace loader. GI and deep vein thrombosis prophylaxis. Repeat labs. We will follow up. Shivani Walters MD MTDD
[2018-03-04] MEDS: Cilostazol 100 mg Tab UD PO SCH ×2 (10:07→18:27)
[2018-03-04] MEDS ORDERED: Magnesium Sulfate 1 gm in D5W 1 GM/100 ML BAG IVPB ONE (10:33)
--- NOTE | 2018-03-04 11:32 | CP.PCM.PN ---
Subjective - Date & Time of Evaluation Date of Evaluation: 03/04/18 Time of Evaluation: 11:28 - Subjective Subjective: Vascular surgery progress note for Dr. Skip Bennett, PGY-1 Pt S & E at bedside 1010 Pt resting comfortably in bed. Asking for something to drink. Denies N & V, F & C, lower extremity pain. Pt states that he knows that he needs surgery tomorrow for his right leg to be amputated. Objective - Vital Signs/Intake and Output Vital Signs (last 24 hours): Temp Pulse Resp BP Pulse Ox 97.4 F L 71 20 128/59 L 95 03/04/18 06:00 03/04/18 10:07 03/04/18 06:00 03/04/18 10:07 03/04/18 06:00 Intake and Output: 03/04/18 03/04/18 06:59 18:59 Intake Total 420 Output Total 400 Balance 20 - Medications Medications: Current Medications Acetaminophen (Tylenol 325mg Tab) 650 mg PO Q6H PRN PRN Reason: Pain, severe (8-10) Last Admin: 03/04/18 10:12 Dose: 650 mg Albuterol/Ipratropium (Duoneb 3 Mg/0.5 Mg (3 Ml) Ud) 3 ml IH [id number] [facility] Last Admin: 03/04/18 07:28 Dose: Not Given Amlodipine Besylate (Norvasc) 10 mg PO DAILY [facility] Last Admin: 03/04/18 10:07 Dose: 10 mg Atorvastatin Calcium (Lipitor) 20 mg PO DIN [facility] Last Admin: 03/03/18 17:46 Dose: 20 mg Calcium Carbonate (Caltrate) 600 mg PO DAILY [facility] Last Admin: 03/04/18 10:08 Dose: 600 mg Cilostazol (Pletal) 100 mg PO BID [facility] Last Admin: 03/04/18 10:07 Dose: 100 mg Doxercalciferol (Hectorol) 0.5 mcg PO DAILY [facility] Last Admin: 03/04/18 10:07 Dose: 0.5 mcg Ergocalciferol (Drisdol 50,000 Intl Units Cap) 1 cap PO Q7D [facility] Last Admin: 03/02/18 14:04 Dose: 1 cap Heparin Sodium (Porcine) (Heparin) 5,000 units SC Q12 [facility] PRN Reason: Protocol Last Admin: 03/04/18 10:06 Dose: 5,000 units Hydralazine HCl (Apresoline) 10 mg PO QID PRN PRN Reason: for sbp>160 Hydromorphone HCl (Dilaudid) 1 mg IVP Q6 PRN PRN Reason: PAIN SEVERE [8-10] Iron Sucrose 100 mg/ Sodium (Chloride) 105 mls @ 210 mls/hr IVPB QWK [facility] Last Admin: 02/28/18 11:27 Dose: 210 mls/hr Magnesium Sulfate/Dextrose (Magnesium Sulfate 1 Gm/100 Ml D5w) 1 gm in 100 mls @ 100 mls/hr IVPB ONCE ONE Stop: 03/04/18 11:32 Iron Sucrose (Venofer) 100 mg IV QWK [facility] Last Admin: 02/28/18 11:21 Dose: Not Given Metoprolol Tartrate (Lopressor) 50 mg PO BID [facility] Last Admin: 03/04/18 10:07 Dose: 50 mg Pantoprazole Sodium (Protonix Ec Tab) 40 mg PO 0600,1600 [facility] Last Admin: 03/04/18 06:37 Dose: 40 mg Pentoxifylline (Pentoxil) 400 mg PO TID [facility] Last Admin: 03/04/18 10:08 Dose: 400 mg Tramadol HCl (Ultram) 50 mg PO TID [facility] Last Admin: 03/04/18 10:26 Dose: Not Given - Labs Labs: 03/04/18 06:40 03/04/18 06:40 - Constitutional Appears: Non-toxic, No Acute Distress, Cachectic - Head Exam Head Exam: ATRAUMATIC, NORMAL INSPECTION, NORMOCEPHALIC - Eye Exam Eye Exam: EOMI, Normal appearance - ENT Exam ENT Exam: Mucous Membranes Moist, Normal Exam - Neck Exam Neck Exam: Full ROM, Normal Inspection - Respiratory Exam Respiratory Exam: NORMAL BREATHING PATTERN - Cardiovascular Exam Cardiovascular Exam: REGULAR RHYTHM, +S1, +S2 - GI/Abdominal Exam GI & Abdominal Exam: Soft. absent: Tenderness - Extremities Exam Additional comments: cachexia - Neurological Exam Neurological Exam: Alert, Awake, CN II-XII Intact, Oriented x3 - Psychiatric Exam Psychiatric exam: Normal Affect, Normal Mood - Skin Skin Exam: Dry, Intact, Normal Color, Warm Assessment and Plan - Assessment and Plan (Free Text) Assessment: 78M w/severe PVD of bilateral lower extremities, plan for Right lower extremity AKA tomorrow Plan: NPO pMN Type & Screen Hold Anticoagulation FU coags Will order 2 units pRBCs to be on hold for surgery tomorrow Consent in chart Cardiology cleared pt for surgery Nephro recs- avoid contrast to avoid need for HD, ok for surgery Will JU attending Sabrina, PGY-1
[2018-03-04 13:21] LABS: INR 1.1 (0.93-1.08); PARTIAL THROMBOPLASTIN TIME 30.6 Seconds (25.1-36.5); PROTHROMBIN TIME 12.7 SECONDS (9.4-12.5)
--- NOTE | 2018-03-04 14:20 | CP.PCM.PN ---
Subjective - Date & Time of Evaluation Date of Evaluation: 03/04/18 Time of Evaluation: 12:35 - Subjective Subjective: No fevers, no diarrhea, not in distress, scheduled for BKA tomorrow. Objective - Vital Signs/Intake and Output Vital Signs (last 24 hours): Temp Pulse Resp BP Pulse Ox 97.4 F L 71 20 128/59 L 95 03/04/18 06:00 03/04/18 10:07 03/04/18 06:00 03/04/18 10:07 03/04/18 06:00 Intake and Output: 03/04/18 03/04/18 06:59 18:59 Intake Total 420 Output Total 400 Balance 20 - Medications Medications: Current Medications Acetaminophen (Tylenol 325mg Tab) 650 mg PO Q6H PRN PRN Reason: Pain, severe (8-10) Last Admin: 03/04/18 10:12 Dose: 650 mg Albuterol/Ipratropium (Duoneb 3 Mg/0.5 Mg (3 Ml) Ud) 3 ml IH [id number] [facility] Last Admin: 03/04/18 07:28 Dose: Not Given Amlodipine Besylate (Norvasc) 10 mg PO DAILY [facility] Last Admin: 03/04/18 10:07 Dose: 10 mg Atorvastatin Calcium (Lipitor) 20 mg PO DIN [facility] Last Admin: 03/03/18 17:46 Dose: 20 mg Calcium Carbonate (Caltrate) 600 mg PO DAILY [facility] Last Admin: 03/04/18 10:08 Dose: 600 mg Cilostazol (Pletal) 100 mg PO BID [facility] Last Admin: 03/04/18 10:07 Dose: 100 mg Doxercalciferol (Hectorol) 0.5 mcg PO DAILY [facility] Last Admin: 03/04/18 10:07 Dose: 0.5 mcg Ergocalciferol (Drisdol 50,000 Intl Units Cap) 1 cap PO Q7D [facility] Last Admin: 03/02/18 14:04 Dose: 1 cap Heparin Sodium (Porcine) (Heparin) 5,000 units SC Q12 [facility] PRN Reason: Protocol Last Admin: 03/04/18 10:06 Dose: 5,000 units Hydralazine HCl (Apresoline) 10 mg PO QID PRN PRN Reason: for sbp>160 Hydromorphone HCl (Dilaudid) 1 mg IVP Q6 PRN PRN Reason: PAIN SEVERE [8-10] Iron Sucrose 100 mg/ Sodium (Chloride) 105 mls @ 210 mls/hr IVPB QWK [facility] Last Admin: 02/28/18 11:27 Dose: 210 mls/hr Iron Sucrose (Venofer) 100 mg IV QWK [facility] Last Admin: 02/28/18 11:21 Dose: Not Given Metoprolol Tartrate (Lopressor) 50 mg PO BID [facility] Last Admin: 03/04/18 10:07 Dose: 50 mg Pantoprazole Sodium (Protonix Ec Tab) 40 mg PO 0600,1600 [facility] Last Admin: 03/04/18 06:37 Dose: 40 mg Pentoxifylline (Pentoxil) 400 mg PO TID [facility] Last Admin: 03/04/18 10:08 Dose: 400 mg Tramadol HCl (Ultram) 50 mg PO TID [facility] Last Admin: 03/04/18 10:26 Dose: Not Given - Labs Labs: 03/04/18 06:40 03/04/18 06:40 - Constitutional Appears: Chronically Ill - Head Exam Head Exam: NORMAL INSPECTION - Respiratory Exam Respiratory Exam: Decreased Breath Sounds - Cardiovascular Exam Cardiovascular Exam: +S1, +S2 - GI/Abdominal Exam GI & Abdominal Exam: Soft. absent: Tenderness Assessment and Plan - Assessment and Plan (Free Text) Plan: Assessment C. diff. associated diarrhea, clinically improved history of right 1st toe gangrene with no evidence of active infection, as well gangrene on other toes of both feet peripheral vascular disease with necrotic toes and ulceration bilaterally, S/P revascularization consider HCAP, bilateral, clinically improving acute encephalopathy, etiology to be determined, now resolved history of Right foot cellulitis with right hallux gangrene Peripheral vascular disease HTN Plan continue PO Vancomycin day 10 to complete 10 days Podiatry doing local wound care for the feet and planned for BKA tomorrow
[2018-03-04] MEDS: Magnesium Oxide 400 mg Tab UD PO SCH ×2 (15:57→18:28)
--- NOTE | 2018-03-04 16:26 | PN ---
DATE: 03/04/2018 PULMONARY PROGRESS NOTE REFERRING PHYSICIAN: Shivani Walters MD SUBJECTIVE: He is lying in the bed, head at 45 degrees. No headache. No rhinitis. No cough. No chest pain. No nausea. No vomiting. Still have lower extremity pain. OBJECTIVE: GENERAL: In no acute distress. VITAL SIGNS: Temperature is 98, heart rate is 71, respiratory rate is 20, blood pressure 128/59, pulse ox is 95% on room air. HEENT: Moist mucous membranes. Crowded airway. NECK: Supple. No JVD. LUNGS: Have a fair airflow with rhonchi. HEART: S1 and S2. ABDOMEN: Soft and nontender. No organomegaly. EXTREMITIES: Has ischemic toes, decreased pulses, tender to touch. NEUROLOGIC: Awake and alert. Follows simple command. MEDICATIONS: He is on hydralazine 10 mg q.i.d. p.r.n., calcium carbonate 600 mg daily, Dilaudid 1 mg every 6 hours p.r.n., vitamin D 50,000 units every 7 days, DuoNeb every 3 hours round the clock, heparin 5000 units subcu every 12 hours, iron supplement, Lipitor 20 mg daily, metoprolol tartrate 50 mg twice a day, Norvasc 10 mg daily, pentoxifylline 400 mg three times a day, Pletal 100 mg twice a day, Protonix 40 mg twice a day, Tylenol p.r.n., Ultram 50 mg three times a day, Venofer 100 mg weekly. LABORATORY DATA: Shows hemoglobin 8.3, hematocrit 27.2, WBC 15,000, platelet count is 336. Sodium 137, potassium 4.2, chloride 104, bicarbonate 21, BUN 40, creatinine 4.3, calcium 7.7, phosphorus 4.8, magnesium is 1.4, AST 16, ALT 21, alkaline phosphatase is 141, albumin is 2.5, TSH 11.8. IMPRESSION AND PLAN: Chronic obstructive lung disease, renal failure, perihilar infiltrate, probably congestion, multiple pressure ulcers, pulmonary hypertension, history of cerebrovascular accident in the past, lower extremity ischemia. Case discussed with Dr. Walters. I spoke to nursing staff being scheduled for above knee amputation tomorrow. Pulmonary status is optimized. Being followed by Cardiology. Probably has diastolic dysfunction. Need close cardiopulmonary monitoring. [place] and post anesthesia because of pulmonary hypertension. I spoke to Dr. Walters, also spoke to surgical nurse practitioner. Replace magnesium. Thank you and we will follow with you. tJ Hayden MD
--- NOTE | 2018-03-04 17:53 | PN ---
DATE: 03/04/2018 SUBJECTIVE: The patient is seen lying in bed. He appears comfortable. He complains of pain in his foot. He denies any chest pain or shortness of breath. PHYSICAL EXAMINATION: GENERAL: Thinly built elderly male lying in bed. VITAL SIGNS: Blood pressure 128/59, heart rate 71, respiratory rate 20, temperature 97.4. HEENT: Normocephalic, atraumatic, positive pallor. NECK: Supple, no JVD. LUNGS: Bilateral equal air entry, bilateral equal expansion. CARDIAC: S1 and S2, regular rate and rhythm, no murmur, no rub. ABDOMEN: Soft, nondistended, nontender, bowel sounds present. EXTREMITIES: Dressing of both feet. INTAKE AND OUTPUT: 780/400. LABORATORY DATA: WBC 15, hemoglobin 8.8, hematocrit 27, platelets 336. Sodium 137, potassium 4.2, chloride 104, CO2 of 21, BUN 40, creatinine 4.3, glucose 73, calcium 7.7, phosphorus 4.8, magnesium 1.4, albumin 2.5, corrected calcium is 8.7. A1c is 5.6. Stool occults negative from . The patient received 2 units of blood total, second unit was on 03/01/2018. CURRENT MEDICATIONS: Apresoline, Caltrate, Dilaudid, Drisdol, DuoNeb, Hectorol 0.5 daily, heparin, Venofer 100 weekly, Lipitor, Lopressor, mag oxide, amlodipine, pentoxifylline, Pletal, Protonix, Tylenol, vancomycin 250 p.o. every 6 hours discontinued. ASSESSMENT: 1. Stable chronic kidney disease stage 4. 2. Anemia of chronic kidney disease, status post 1 unit of packed red blood cells. 3. Severe peripheral vascular disease, gangrene of multiple toes on the right foot. 4. High risk for worsening renal function with contrast exposure. 5. Hypertension. 6. Secondary hyperparathyroidism. 7. Pulmonary hypertension. 8. Clostridium difficile colitis. PLAN: 1. Agree with plan for amputation of the right lower extremity instead of angiogram, which would definitely put this man at risk for ESRD. 2. Continue current antihypertensives. 3. Push p.o. fluids. 4. Continue oral vancomycin for C. Diff colitis. Latrice Holder MD [facility] # [id number]
[2018-03-05] MEDS: Pantoprazole 40 mg EC Tab PO SCH ×2 (05:39→17:05)
--- NOTE | 2018-03-05 07:03 | CP.PCM.PN ---
Subjective - Date & Time of Evaluation Date of Evaluation: 03/05/18 Time of Evaluation: 06:45 - Subjective Subjective: Awake, no distress,lying in bed, less leg pain Reason for consultation and follow up: Cardiac evaluation/clearance for possible amputation of gangrened toes, History of peripheral arterial disease, coronary artery disease,, diastolic CHF, stage 4 chronic kidney disease, GI bleed, and hypertension. Seen and examined by me and Dr. Figueroa Objective - Vital Signs/Intake and Output Vital Signs (last 24 hours): Temp Pulse Resp BP Pulse Ox 97.4 F L 76 20 140/76 95 03/04/18 06:00 03/04/18 18:27 03/04/18 06:00 03/04/18 18:27 03/04/18 06:00 Intake and Output: 03/05/18 03/05/18 06:59 18:59 Intake Total 420 Output Total 400 Balance 20 - Medications Medications: Current Medications Acetaminophen (Tylenol 325mg Tab) 650 mg PO Q6H PRN PRN Reason: Pain, severe (8-10) Last Admin: 03/04/18 10:12 Dose: 650 mg Albuterol/Ipratropium (Duoneb 3 Mg/0.5 Mg (3 Ml) Ud) 3 ml IH [id number] [facility] Last Admin: 03/04/18 21:16 Dose: Not Given Amlodipine Besylate (Norvasc) 10 mg PO DAILY [facility] Last Admin: 03/04/18 10:07 Dose: 10 mg Atorvastatin Calcium (Lipitor) 20 mg PO DIN [facility] Last Admin: 03/04/18 18:28 Dose: 20 mg Calcium Carbonate (Caltrate) 600 mg PO DAILY [facility] Last Admin: 03/04/18 10:08 Dose: 600 mg Cilostazol (Pletal) 100 mg PO BID [facility] Last Admin: 03/04/18 18:27 Dose: 100 mg Doxercalciferol (Hectorol) 0.5 mcg PO DAILY [facility] Last Admin: 03/04/18 10:07 Dose: 0.5 mcg Ergocalciferol (Drisdol 50,000 Intl Units Cap) 1 cap PO Q7D [facility] Last Admin: 03/02/18 14:04 Dose: 1 cap Heparin Sodium (Porcine) (Heparin) 5,000 units SC Q12 [facility] PRN Reason: Protocol Last Admin: 03/04/18 10:06 Dose: 5,000 units Hydralazine HCl (Apresoline) 10 mg PO QID PRN PRN Reason: for sbp>160 Hydromorphone HCl (Dilaudid) 1 mg IVP Q6 PRN PRN Reason: PAIN SEVERE [8-10] Iron Sucrose 100 mg/ Sodium (Chloride) 105 mls @ 210 mls/hr IVPB QWK [facility] Last Admin: 02/28/18 11:27 Dose: 210 mls/hr Iron Sucrose (Venofer) 100 mg IV QWK [facility] Last Admin: 02/28/18 11:21 Dose: Not Given Magnesium Oxide (Mag-Ox) 400 mg PO BID [facility] Stop: 03/05/18 18:01 Last Admin: 03/04/18 18:28 Dose: 400 mg Metoprolol Tartrate (Lopressor) 50 mg PO BID [facility] Last Admin: 03/04/18 18:27 Dose: 50 mg Pantoprazole Sodium (Protonix Ec Tab) 40 mg PO 0600,1600 [facility] Last Admin: 03/05/18 05:39 Dose: Not Given Pentoxifylline (Pentoxil) 400 mg PO TID [facility] Last Admin: 03/04/18 18:28 Dose: 400 mg Tramadol HCl (Ultram) 50 mg PO TID [facility] Last Admin: 03/04/18 18:30 Dose: 50 mg - Labs Labs: 03/04/18 06:40 03/04/18 06:40 PT 12.7 SECONDS (9.4-12.5) H 03/04/18 13:00 INR 1.10 (0.93-1.08) H 03/04/18 13:00 APTT 30.6 Seconds (25.1-36.5) 03/04/18 13:00 - Constitutional Appears: No Acute Distress - Head Exam Head Exam: NORMOCEPHALIC - Eye Exam Eye Exam: Normal appearance - ENT Exam ENT Exam: Mucous Membranes Moist - Respiratory Exam Respiratory Exam: Decreased Breath Sounds, NORMAL BREATHING PATTERN - Cardiovascular Exam Cardiovascular Exam: +S1, +S2 - GI/Abdominal Exam GI & Abdominal Exam: Soft, Normal Bowel Sounds - Extremities Exam Additional comments: left medial toe and right proximal toe necrotic - Neurological Exam Neurological Exam: Alert, Awake - Psychiatric Exam Psychiatric exam: Normal Affect, Normal Mood - Skin Skin Exam: Normal Color, Warm Assessment and Plan - Assessment and Plan (Free Text) Assessment: A 78 year old male who came in to the ER from [facility] due to painful toes. History of peripheral arterial disease,coronary artery disease,, diastolic CHF, stage 4 chronic kidney disease, GI bleed, and hypertension. esophageal ulcers, secondary hyperparathyroidism, right hip surgery, lower extremity angioplasty, smoking for 60 years, quit 5 months ago .Echo was done 2017 Mild TR/MR, LVEF 61%. Plan: For right AKA surgery today Clear for surgery from cardiac standpoint High risk for surgery considering co- morbidities Follow up closely postoperatively Controlled heart rate and blood pressure On Norvasc 10 mg daily, Lipitor 20 mg daily, Lopressor 50 mg BID Continue current treatment Continue current medications Will follow up Plan and treatment discussed with Dr. Figueroa
--- NOTE | 2018-03-05 07:15 | PN ---
DATE: 03/04/2018 SUBJECTIVE: The patient is seen and examined on the bedside on 03/04/2018, looking comfortable. No nausea, vomiting or diarrhea. No hematuria or hematochezia. Still complaining about pain in both legs. No headache. No dizziness. No chest pain. No palpitation. PHYSICAL EXAMINATION: VITAL SIGNS: Temperature 98, heart rate 71, respiratory rate 18, blood pressure 120/59, pulse oximetry 98% on room air. HEENT: Head: Normocephalic, atraumatic. Eyes: PERRLA. Extraocular muscles intact. Conjunctivae clear. Nose: Patent. Mucous membrane moist. NECK: Supple. No carotid bruit. No JVD or thyromegaly. CHEST: Bilaterally symmetrical. HEART: S1 and S2 positive. LUNGS: Clear to auscultation. ABDOMEN: Soft. Bowel sounds present. No organomegaly. EXTREMITIES: Ischemic changes in the toes. Diffuse pulses. Tender to touch. Feet are swollen. NEUROLOGICAL: The patient is awake and alert. Follows simple commands. MEDICATIONS: Hydralazine, calcium carbonate, Dilaudid, vitamin D, DuoNeb, iron supplement, Lipitor, metoprolol, Norvasc, pentoxifylline, Pletal, Protonix, Tylenol, Tramadol, Venofer. LABORATORY DATA: Hemoglobin 8.3; hematocrit 27.2; white blood cells 15,000, platelets 336. Sodium 137, potassium 4.2, BUN 14, creatinine noted , AST 16, ALT 21. ASSESSMENT AND PLAN: Mr. Geovanna Guerra is a 78-year-old male, seen and examined by me on the bedside on 03/04/2018, has chronic obstructive lung disease, renal insufficiency, perihilar infiltrates, may be congestion, multiple pressure ulcers, pulmonary hypertension, history of cerebrovascular accident in the past, lower extremity ischemia, gangrenous toes. Discussion done with Dr. Hayden and with neurosurgical nurse. Maybe patient will be scheduled for surgery tomorrow, right leg amputation above-knee. Cemetery Keeper and training assistant is on the case to give clearance. Needs close cardiopulmonary monitoring steffen- and post-anesthesia, because of pulmonary hypertension. resident care spec called patient's and patient's daughter Jeanne, and patient gave consent for procedure. Gastrointestinal and deep vein thrombosis prophylaxis. Repeat labs. Continue present treatment. We will follow up. Shivani Walters MD [facility]
[2018-03-05] MEDS: Albuterol-Ipratrop 3 mg / 0.5 (3 ml) UD IH SCH ×3 (07:49→21:01)
[2018-03-05] MEDS: Magnesium Oxide 400 mg Tab UD PO SCH ×2 (09:17→17:05)
[2018-03-05] MEDS: Cilostazol 100 mg Tab UD PO SCH ×2 (09:18→17:05)
[2018-03-05] MEDS ORDERED: Bupivacaine 0.5% Inj(30mL) ONE ×2 (09:21→11:13)
[2018-03-05] MEDS ORDERED: Bupivacaine 0.25% Inj(30mL) ONE (09:55)
[2018-03-05] MEDS ORDERED: Midazolam 2 MG/2 ML VIAL ONE (10:05)
[2018-03-05] MEDS ORDERED: Propofol 10 mg/ml Inj (20 ML) ONE (10:05)
[2018-03-05] MEDS ORDERED: Vancomycin 1 g Inj ONE (10:25)
[2018-03-05] MEDS ORDERED: ePHEDrine 50 mg/ml Inj ONE (10:32)
[2018-03-05] MEDS ORDERED: Liquid Adhesive TOP ONE (11:26)
[2018-03-05] MEDS ORDERED: Flumazenil 0.1 mg/ml Inj (5ml) IVP ONE (12:10)
--- NOTE | 2018-03-05 12:21 | PCM.SURG1 ---
Surgeon's Initial Post Op Note - Surgeon's Notes Surgeon: Dr. Hudson Computer Hardware Engineer: Anna Marie PGY1 Type of Anesthesia: General LMA Anesthesia Administered By: Dr. Talavera Pre-Operative Diagnosis: Peripheral artery disease, R foot dry gangrene, ischemia Operative Findings: Peripheral artery disease, R foot dry gangrene, ischemia Post-Operative Diagnosis: Peripheral artery disease, R foot dry gangrene, ischemia Operation Performed: Right above the knee amputation Specimen/Specimens Removed: R lower leg Estimated Blood Loss: EBL {In ML}: 35 Blood Products Given: N/A Drains Used: No Drains Post-Op Condition: Good Date of Surgery/Procedure: 03/05/18 Time of Surgery/Procedure: 12:21
[2018-03-05] MEDS ORDERED: HYDROmorphone 0.5 mg/0.5 ml ISec IVP PRN (12:22)
--- NOTE | 2018-03-05 12:26 | PCM.ANESB3 ---
Femoral Nerve Block - Femoral Nerve Block Date of Procedure: 03/05/18 Anesthesiologist: Estela Talavera Pre-Procedure Diagnosis: right AKA Post-Procedure Diagnosis: same Procedure Performed: Femoral Nerve Block Right - Procedure Femoral Nerve Block: The procedure was explained to the patient that it is for the post-operative pain management. Consent was obtained after a thorough discussion with the patient regarding the benefits and possible complications of local anesthetic block of the femoral nerve at the inguinal crease area. The patient was brought to the operating room and standard monitors were applied. Time-out was held with the circulating nurse to confirm the correct surgery and the appropriate block. After applying oxygen by nasal cannula and administering IV Sedation, patient was placed in supine position with fully extended lower extremities and the _right groin exposed. The femoral artery was then carefully palpated. The ultrasound transducer was then applied to this area in the transverse plane and the femoral nerve was visualized lateral to the femoral artery and underneath the fascia iliaca. After thorough identification, the inguinal crease area was prepped with Betadine solution three times and 1 % Lidocaine was injected subcutaneously for topical anesthesia. At this point, a #22 gauge Stimuplex 2-inch needle was inserted immediately lateral to the femoral artery pulse at the inguinal crease and advanced perpendicularly. The needle was inserted to the ultrasound transducer in-plane towards the femoral nerve in a [id number] direction. Needle advancement was performed carefully under direct ultrasound visualization. Nerve stimulator was used and twitch of the quadriceps muscle was obtained at current of _0.3____ MA. After negative aspiration, __5___cc of _0.5____% __bupiv was injected and this was followed with __20____ cc of __0.5 % ___bupiv___ . Under ultrasound guidance the local anesthetics were observed spreading below fascia iliaca and around the femoral nerve. The needle was removed intact and sterile dressing was applied. The patient had stable vital signs, was conscious and in no apparent distress. The patient tolerated the femoral nerve block well with stable vital signs and was prepared for subsequent surgery.
[2018-03-05] MEDS ORDERED: Lactated Ringer's 1,000 ML IV SCH (12:30)
--- NOTE | 2018-03-05 20:14 | PN ---
DATE: 03/05/2018 PULMONARY PROGRESS NOTE REFERRING PHYSICIAN: Shivani Walters MD SUBJECTIVE: Patient is lying in the bed, sleepy, arousable. Earlier day's event noted. Underwent right AKA. Has a dressing on it. No headache. No rhinitis. No cough. No nausea. No vomiting. No abdominal pain. OBJECTIVE: GENERAL: In no acute distress. VITAL SIGNS: Temperature is 98, heart rate 58, respiratory rate is 18, blood pressure 123/73, pulse ox 97% on 3 L nasal cannula. HEENT: Moist mucous membrane. Crowded airway. NECK: Supple. No JVD. LUNGS: Fair airflow with a few rhonchi. HEART: S1, S2. ABDOMEN: Soft, nontender. No organomegaly. EXTREMITIES: Ischemic changes of the left fourth toe. Right AKA stump is covered with a dressing. NEUROLOGIC: Awake, alert, follows simple commands. MEDICATIONS: He is on hydralazine 10 mg four times daily p.r.n., Dilaudid 1 mg every 6 hours p.r.n., vitamin D 50, 000 units weekly, DuoNeb every 6 hours, heparin 5000 units subcu every 12 hours, IV iron, atorvastatin 20 mg daily, metoprolol tartrate 50 mg twice a day, Norvasc 10 mg daily, pentoxifylline 400 mg three times a day, Pletal 100 mg twice a day, Protonix 40 mg twice a day, Tylenol p.r.n., Ultram 50 mg three times a day, Zofran p.r.n. basis. IMPRESSION AND PLAN: Chronic obstructive lung disease, renal failure, perihilar infiltrate, multiple pressure ulcers, pulmonary hypertension, cerebrovascular accident, lower extremity ischemia status post right above-knee amputation, also has left lower extremity ischemia. Spoke to nursing staff. Pulmonary point of view, doing okay. May continue supplement oxygen. Keep head at 45 degrees. Bronchodilator. Gastric prophylaxis. Followup labs in the morning. Thank you and we will follow with you. Jt Hayden MD
--- NOTE | 2018-03-05 21:10 | OP ---
PROCEDURE DATE: 03/05/2018 PREOPERATIVE DIAGNOSES: 1. Right foot gangrene. 2. Peripheral vascular disease. POSTOPERATIVE DIAGNOSES: 1. Right foot gangrene. 2. Peripheral vascular disease. PROCEDURE: Right above-knee amputation. SURGEON: Nancy Hudson MD. TYPE OF ANESTHESIA: General. DESCRIPTION OF PROCEDURE: The patient was brought to the OR and placed on the OR table. A right femoral block was performed postop pain management. After that, the patient was put under general anesthesia. The entire right leg up to the groin was prepped with ChloraPrep and draped out as a sterile field. Circumferential incision was made just above the patella. The incision was extended down for subcutaneous tissue and muscle. The femur bone was identified. The periosteum was scored and elevated to mid thigh. The neurovascular bundle was identified. The artery and vein were individually ligated and the sciatic nerve was stripped back to mid thigh and transected. The bone was transected in mid thigh and the posterior flap completed. The specimen was handed off. The stump was inspected for bleeding and good hemostasis was assured with electrocoagulation. The stump was closed in 2 layers using 2-0 Monocryl interrupted suture for the fascia and a combination of iftikhar and 2-0 nylon horizontal mattress for skin. A sterile dressing was applied. The patient tolerated the procedure well and was returned to the recovery room in stable condition. Nancy Hudson MD
[2018-03-06] MEDS: HYDROmorphone 1 mg/ml ISec IVP PRN ×3 (00:14→17:43)
[2018-03-06] MEDS: Albuterol-Ipratrop 3 mg / 0.5 (3 ml) UD IH SCH ×4 (01:23→21:37)
--- NOTE | 2018-03-06 02:05 | PN ---
DATE: 03/05/2018 SUBJECTIVE: Patient is seen lying in bed. He is seen status post right AKA. He has been very groggy. PHYSICAL EXAMINATION: GENERAL: Elderly male lying in bed. VITAL SIGNS: Blood pressure 129/73, heart rate 58, respiratory rate 18, temperature 98.4. HEENT: Normocephalic, atraumatic, positive pallor. NECK: Supple, no JVD. LUNGS: Bilateral equal air entry, bilateral equal expansion. CARDIAC: S1, S2. Regular and rhythm, no murmur, no rub. ABDOMEN: Soft, nondistended, nontender, bowel sounds present. EXTREMITIES: Right AKA, left foot dressing. INTAKE AND OUTPUT: 420/400. LABORATORY DATA: Not charted. No new labs. CURRENT MEDICATIONS: Apresoline 10 four times a day, Caltrate 600, Dilaudid, Drisdol, DuoNeb, Hectorol, Venofer, Lipitor, Lopressor, amlodipine 10, Pletal, pentoxifylline, Protonix, Tylenol, tramadol, Zofran. ASSESSMENT: 1. Chronic kidney disease, stage IV/V. 2. Severe anemia. 3. Severe peripheral vascular disease, status post right above-knee amputation, postop day zero. 4. Cachexia. 5. Gangrene toes of left foot. PLAN: 1. Discussed with Dr. Hudson, patient needs angiogram/angioplasty of the left leg. Will likely need dialysis. We will speak to patient and tomorrow about dialysis. 2. If agreeable, then okay to proceed with angiogram/angioplasty, followed by dialysis. 3. Continue Venofer. 4. Continue pain management. 5. Continue antibiotics. Latrice Holder MD
[2018-03-06] MEDS: Pantoprazole 40 mg EC Tab PO SCH ×2 (06:03→17:09)
--- NOTE | 2018-03-06 06:36 | PN ---
DATE: 03/05/2018 SUBJECTIVE: The patient is seen and examined on the bedside. No nausea, vomiting, diarrhea. No hematuria or hematochezia. Came back from surgery, amputation of the right leg above the knee, got nerve block. No fever. No chills. No headache. No dizziness. History of chronic kidney disease. PHYSICAL EXAMINATION: VITAL SIGNS: Temperature 97.4, pulse 76, respiratory rate 20, blood pressure 140/70, pulse oximetry 95. HEENT: Head normocephalic, atraumatic. Eyes, PERRLA. Extraocular muscles intact. Conjunctivae clear. Nose patent. Mucous membrane moist. NECK: Supple. No carotid bruit. No JVD or thyromegaly. CHEST: Bilaterally symmetrical. HEART: S1 and S2 positive. LUNGS: Clear to auscultation. ABDOMEN: Soft. Bowel sounds positive. No organomegaly. EXTREMITIES: No edema. No cyanosis. NEUROLOGICAL: The patient is awake and alert. Moving all 4 extremities. No focal deficits. MEDICATIONS: Acetaminophen, DuoNeb, Lipitor, Caltrate, Pletal, Hectorol, vitamin D, heparin, hydralazine, hydromorphone, Venofer, magnesium oxide, Lopressor, Protonix, Pentoxil, tramadol. LABORATORY DATA: White blood cells 15.4, hemoglobin 8.8, hematocrit 27.2 , platelet 336. Sodium 127, potassium 4.2, BUN 40, creatinine 4.3, glucose 73. ASSESSMENT AND PLAN: Mr. Geovanna Guerra is a 78-year-old male with leukocytosis, anemia, renal insufficiency, history of peripheral arterial disease, coronary artery disease, diastolic congestive heart failure, stage IV chronic kidney disease, gastrointestinal bleeding treated by transfusion, hypertension, secondary to hyperparathyroidism, right hip surgery, lower extremity angioplasty, history of smoking for 50 years, quit 5 months ago. Echo done and reviewed by me. The patient went for right above-knee amputation surgery today, got nerve block. Pain is getting under control. Getting the medications, Norvasc and Lopressor for blood pressure. Continue present treatment and wound care. We will follow up. Shivani Walters MD [facility] # [phone] MTDD
--- NOTE | 2018-03-06 06:44 | CP.PCM.PN ---
Subjective - Date & Time of Evaluation Date of Evaluation: 03/06/18 Time of Evaluation: 06:10 - Subjective Subjective: Awake, no distress,lying in bed, post above knee amputation of right leg Reason for consultation and follow up: Cardiac evaluation/clearance for possible amputation of gangrened toes, History of peripheral arterial disease, coronary artery disease,, diastolic CHF, stage 4 chronic kidney disease, GI bleed, and hypertension. Seen and examined by me and Dr. Figueroa Objective - Vital Signs/Intake and Output Vital Signs (last 24 hours): Temp Pulse Resp BP Pulse Ox 97.8 F 72 20 124/76 94 L 03/05/18 23:30 03/05/18 23:30 03/05/18 23:30 03/05/18 23:30 03/05/18 23:30 Intake and Output: 03/05/18 03/06/18 18:59 06:59 Intake Total 0 Balance 0 - Medications Medications: Current Medications Acetaminophen (Tylenol 325mg Tab) 650 mg PO Q6H PRN PRN Reason: Pain, severe (8-10) Last Admin: 03/04/18 10:12 Dose: 650 mg Albuterol/Ipratropium (Duoneb 3 Mg/0.5 Mg (3 Ml) Ud) 3 ml IH [id number] [facility] Last Admin: 03/06/18 01:23 Dose: Not Given Amlodipine Besylate (Norvasc) 10 mg PO DAILY [facility] Last Admin: 03/05/18 09:18 Dose: Not Given Atorvastatin Calcium (Lipitor) 20 mg PO DIN [facility] Last Admin: 03/05/18 17:05 Dose: 20 mg Calcium Carbonate (Caltrate) 600 mg PO DAILY [facility] Last Admin: 03/05/18 09:17 Dose: Not Given Cilostazol (Pletal) 100 mg PO BID [facility] Last Admin: 03/05/18 17:05 Dose: 100 mg Doxercalciferol (Hectorol) 0.5 mcg PO DAILY [facility] Last Admin: 03/05/18 09:17 Dose: Not Given Ergocalciferol (Drisdol 50,000 Intl Units Cap) 1 cap PO Q7D [facility] Last Admin: 03/02/18 14:04 Dose: 1 cap Heparin Sodium (Porcine) (Heparin) 5,000 units SC Q12 [facility] PRN Reason: Protocol Last Admin: 03/05/18 23:41 Dose: Not Given Hydralazine HCl (Apresoline) 10 mg PO QID PRN PRN Reason: for sbp>160 Hydromorphone HCl (Dilaudid) 1 mg IVP Q6 PRN PRN Reason: PAIN SEVERE [8-10] Last Admin: 03/06/18 00:14 Dose: 1 mg Iron Sucrose 100 mg/ Sodium (Chloride) 105 mls @ 210 mls/hr IVPB QWK [facility] Last Admin: 02/28/18 11:27 Dose: 210 mls/hr Metoprolol Tartrate (Lopressor) 50 mg PO BID [facility] Last Admin: 03/05/18 17:05 Dose: 50 mg Ondansetron HCl (Zofran Inj) 4 mg IVP ONCE PRN PRN Reason: Nausea/Vomiting Pantoprazole Sodium (Protonix Ec Tab) 40 mg PO 0600,1600 [facility] Last Admin: 03/06/18 06:03 Dose: 40 mg Pentoxifylline (Pentoxil) 400 mg PO TID [facility] Last Admin: 03/05/18 17:05 Dose: 400 mg Tramadol HCl (Ultram) 50 mg PO TID [facility] Last Admin: 03/05/18 17:49 Dose: Not Given - Labs Labs: 03/04/18 06:40 03/04/18 06:40 PT 12.7 SECONDS (9.4-12.5) H 03/04/18 13:00 INR 1.10 (0.93-1.08) H 03/04/18 13:00 APTT 30.6 Seconds (25.1-36.5) 03/04/18 13:00 - Constitutional Appears: No Acute Distress - Head Exam Head Exam: NORMOCEPHALIC - Eye Exam Eye Exam: Normal appearance - ENT Exam ENT Exam: Mucous Membranes Moist - Respiratory Exam Respiratory Exam: Decreased Breath Sounds, NORMAL BREATHING PATTERN - Cardiovascular Exam Cardiovascular Exam: +S1, +S2 - GI/Abdominal Exam GI & Abdominal Exam: Soft, Normal Bowel Sounds - Extremities Exam Additional comments: right leg stump with kerlex wrap, no bleeding elevated one pillow, left middle toe necrotic - Neurological Exam Neurological Exam: Alert, Awake - Psychiatric Exam Psychiatric exam: Normal Affect, Normal Mood - Skin Skin Exam: Normal Color, Warm Assessment and Plan - Assessment and Plan (Free Text) Assessment: A 78 year old male who came in to the ER from [facility] due to painful toes. History of peripheral arterial disease,coronary artery disease,, diastolic CHF, stage 4 chronic kidney disease, GI bleed, and hypertension. esophageal ulcers, secondary hyperparathyroidism, right hip surgery, lower extremity angioplasty, smoking for 60 years, quit 5 months ago .Echo was done 2017 Mild TR/MR, LVEF 61%.03/05/18 right AKA Plan: Status post right AKA surgery (POD#1) Controlled heart rate and blood pressure Cardiac status stable PRN pain medication for right stump On Norvasc 10 mg daily, Lipitor 20 mg daily, Lopressor 50 mg BID Continue current treatment Continue current medications Will follow up Plan and treatment discussed with Dr. Figueroa
[2018-03-06 07:29] LABS: HEMOGLOBIN 8.2 g/dL (14.0-18.0); MEAN CELL VOLUME 86.2 fl (80.0-105.0); MEAN CORPUSCULAR HEMOGLOBIN 28.4 pg (25.0-35.0); MEAN CORPUSCULAR HGB CONC 32.9 g/dl (31.0-37.0); RBC 2.89 10^6/uL (3.5-6.1); RED CELL DISTRIBUTION WIDTH 15.9 % (11.5-14.5); WHITE BLOOD COUNT 18.8 10^3/ul (4.5-11.0)
--- NOTE | 2018-03-06 08:08 | CP.PCM.PN ---
Subjective - Date & Time of Evaluation Date of Evaluation: 03/06/18 Time of Evaluation: 06:35 - Subjective Subjective: Vascular Surgery Note for Dr. Hudson Patient seen and examined at bedside. Overnight, patient was unable to void and bladder scan which revealed. Patient had straight cath that removed 600 cc of urine. Patient is complaining of right stump pain. Patient is tolerating diet. Patient says that he voided since straight cath but it is unclear. Patient has no other complaints at this time. Objective - Vital Signs/Intake and Output Vital Signs (last 24 hours): Temp Pulse Resp BP Pulse Ox 97.8 F 72 20 124/76 94 L 03/05/18 23:30 03/05/18 23:30 03/05/18 23:30 03/05/18 23:30 03/05/18 23:30 - Medications Medications: Current Medications Acetaminophen (Tylenol 325mg Tab) 650 mg PO Q6H PRN PRN Reason: Pain, severe (8-10) Last Admin: 03/04/18 10:12 Dose: 650 mg Albuterol/Ipratropium (Duoneb 3 Mg/0.5 Mg (3 Ml) Ud) 3 ml IH [id number] [facility] Last Admin: 03/06/18 07:41 Dose: Not Given Amlodipine Besylate (Norvasc) 10 mg PO DAILY [facility] Last Admin: 03/05/18 09:18 Dose: Not Given Atorvastatin Calcium (Lipitor) 20 mg PO DIN [facility] Last Admin: 03/05/18 17:05 Dose: 20 mg Calcium Carbonate (Caltrate) 600 mg PO DAILY [facility] Last Admin: 03/05/18 09:17 Dose: Not Given Cilostazol (Pletal) 100 mg PO BID [facility] Last Admin: 03/05/18 17:05 Dose: 100 mg Doxercalciferol (Hectorol) 0.5 mcg PO DAILY [facility] Last Admin: 03/05/18 09:17 Dose: Not Given Ergocalciferol (Drisdol 50,000 Intl Units Cap) 1 cap PO Q7D [facility] Last Admin: 03/02/18 14:04 Dose: 1 cap Heparin Sodium (Porcine) (Heparin) 5,000 units SC Q12 [facility] PRN Reason: Protocol Last Admin: 03/05/18 23:41 Dose: Not Given Hydralazine HCl (Apresoline) 10 mg PO QID PRN PRN Reason: for sbp>160 Hydromorphone HCl (Dilaudid) 1 mg IVP Q6 PRN PRN Reason: PAIN SEVERE [8-10] Last Admin: 03/06/18 00:14 Dose: 1 mg Iron Sucrose 100 mg/ Sodium (Chloride) 105 mls @ 210 mls/hr IVPB QWK [facility] Last Admin: 02/28/18 11:27 Dose: 210 mls/hr Metoprolol Tartrate (Lopressor) 50 mg PO BID [facility] Last Admin: 03/05/18 17:05 Dose: 50 mg Ondansetron HCl (Zofran Inj) 4 mg IVP ONCE PRN PRN Reason: Nausea/Vomiting Pantoprazole Sodium (Protonix Ec Tab) 40 mg PO 0600,1600 [facility] Last Admin: 03/06/18 06:03 Dose: 40 mg Pentoxifylline (Pentoxil) 400 mg PO TID [facility] Last Admin: 03/05/18 17:05 Dose: 400 mg Tramadol HCl (Ultram) 50 mg PO TID [facility] Last Admin: 03/05/18 17:49 Dose: Not Given - Labs Labs: 03/06/18 07:00 03/04/18 06:40 PT 12.7 SECONDS (9.4-12.5) H 03/04/18 13:00 INR 1.10 (0.93-1.08) H 03/04/18 13:00 APTT 30.6 Seconds (25.1-36.5) 03/04/18 13:00 - Constitutional Appears: No Acute Distress - Head Exam Head Exam: ATRAUMATIC, NORMOCEPHALIC - Eye Exam Eye Exam: Normal appearance - ENT Exam ENT Exam: Mucous Membranes Moist - Respiratory Exam Respiratory Exam: NORMAL BREATHING PATTERN - Cardiovascular Exam Cardiovascular Exam: REGULAR RHYTHM - GI/Abdominal Exam GI & Abdominal Exam: Soft, Normal Bowel Sounds. absent: Tenderness - Extremities Exam Additional comments: R stump with dressing clean dry intact - Neurological Exam Neurological Exam: Alert, Awake - Psychiatric Exam Psychiatric exam: Normal Affect, Normal Mood - Skin Skin Exam: Dry, Warm Assessment and Plan - Assessment and Plan (Free Text) Assessment: 78 M s/p Right AKA POD#1 Plan: -Do not touch or remove dressing, if issue call Surgery team -Analgesics PRN -Monitor Urine output -Bladder scan PRN -Further recommendations as per Dr. Tristan Thrasher PGY1
[2018-03-06 08:12] LABS: ALB/GLOB RATIO 0.8 (1.1-1.8); ALBUMIN 2.5 g/dL (3.0-4.8); ALT/SGPT 15 U/L (7-56); AST/SGOT 18 U/L (17-59); BLOOD UREA NITROGEN 41 mg/dL (7-21); CALCIUM 7.5 mg/dL (8.4-10.5); GFR AFRICAN-AMERICAN 16; GFR NON-AFRICAN AMERICAN 13
[2018-03-06] MEDS: Cilostazol 100 mg Tab UD PO SCH ×2 (10:15→18:29)
--- NOTE | 2018-03-06 15:16 | PN ---
DATE: 03/06/2018 SUBJECTIVE: The patient is seen lying in bed. Multiple family members are at bedside. He is awake, he is alert. He complains of pain in his foot. He denies any nausea. He denies any vomiting. He denies any urinary complaints. PHYSICAL EXAMINATION: GENERAL: Thinly built elderly male, lying in bed. VITAL SIGNS: Blood pressure 188/78, heart rate 72, respiratory rate 20, temperature 97.5. HEENT: Normocephalic, atraumatic, positive pallor. NECK: Supple, no JVD. LUNGS: Bilateral equal air entry, bilateral equal expansion. CARDIAC: S1 and S2, regular rate and rhythm, no murmur, no rub. ABDOMEN: Soft, nondistended, nontender, bowel sounds present. EXTREMITIES: Right AKA, left foot dressing. INTAKE AND OUTPUT: Not charted. LABORATORY DATA: WBC 18.8, hemoglobin 8.2, hematocrit 25, and platelets 261. Sodium 135, potassium 4.3, chloride 103, CO2 of 22. BUN 41, creatinine 4.3. Glucose 149. Calcium 7.5, phosphorus 4.7, magnesium 1.6, albumin 2.5, corrected calcium is 8.5. CURRENT MEDICATIONS: Apresoline 10 four time daily p.r.n., Caltrate, Colace, Dilaudid, Drisdol, DuoNeb, Hectorol 0.5, heparin, iron 100 every week, Lopressor, Lipitor, amlodipine 10, pentoxifylline, cilostazol, Protonix, Synthroid, Tylenol, Ultram, and Zofran. ASSESSMENT: 1. Chronic kidney disease stage IV/V, with mild acute kidney injury. 2. Severe peripheral vascular disease. 3. Status post right above-knee amputation, postoperative day #2. 4. Nonhealing ulcer/pre-gangrene of left toes. 5. Severe hypertension. 6. Anemia of chronic kidney disease. 7. Secondary hyperparathyroidism. PLAN: 1. Case discussed with Dr. Hudson, case discussed with family members at bedside, the patient needs to consider dialysis, so that he can get optimal treatment for his severe peripheral vascular disease and nonhealing ulcers of the left foot. 2. Last creatinine clearance was about 12 mL/min with serum creatinine of 3. Therefore, the patient has actually chronic kidney disease stage V/ESRD. 3. Severe anemia status post 2 units of blood transfusion, continue IV iron. 4. The patient and family to decide regarding renal replacement therapy. Latrice Holder MD
[2018-03-06] MEDS ORDERED: Magnesium 2 gm/50 ml NS 2 GM/50 ML BAG IVPB ONE (17:07)
[2018-03-06] MEDS: Magnesium Oxide 400 mg Tab UD PO SCH (18:29)
--- NOTE | 2018-03-06 19:26 | PN ---
DATE: 03/06/2018 PULMONARY PROGRESS NOTE REFERRING PHYSICIAN: Shivani Walters MD. SUBJECTIVE: He is lying in the bed, head at 45 degrees. Right stump pain is better, left foot pain is still there. No cough. No sputum production. No nausea, no vomiting. Has a poor appetite. PHYSICAL EXAMINATION: GENERAL: In no acute distress. VITAL SIGNS: Temperature is 98, heart rate 65, respiratory rate is 20, blood pressure 115/67, pulse ox 94% on nasal cannula. HEENT: Moist mucous membrane. Crowded airway. NECK: Supple. No JVD. LUNGS: Have a fair airflow with rhonchi. HEART: S1 and S2. ABDOMEN: Soft, nontender. No organomegaly. Right stump has a dressing. Left foot has ischemic changes. NEUROLOGIC: Awake, alert, and follows simple command. MEDICATIONS: He is on hydralazine 10 mg four times a day p.r.n., calcium carbonate 600 mg daily, Colace 100 mg twice a day, Dilaudid 1 mg every 6 hours . p.r.n., vitamin D 50,000 units weekly, DuoNeb every 6 hours [id number], heparin 5000 units subcu every 12 hours, iron supplement, Lipitor 20 mg daily, metoprolol tartrate 50 mg twice a day, mag oxide 400 mg twice a day, Norvasc 10 mg daily, pentoxifylline 400 mg three times a day, Pletal 100 mg twice a day, Protonix 40 mg twice a day, Synthroid 25 mcg daily, Tylenol p.r.n., Ultram 50 mg three times a day, Zofran p.r.n. basis. LABORATORY DATA: Shows hemoglobin 8.2, hematocrit 24.9, WBC 18.8, platelet is 261. Sodium 135, potassium 4.3, chloride 103, bicarbonate 22, BUN 41, creatinine 4.3, glucose 149, calcium 7.5, phosphorus 4.7, magnesium 1.6. AST 18, ALT 15, alkaline phosphatase 136, albumin is 2.5. IMPRESSION AND PLAN: Chronic obstructive lung disease, renal failure, perihilar infiltrate, multiple ischemic areas of the left lower extremity, pulmonary hypertension, history of cerebrovascular accident in the past, and status post right above-knee amputation, has a dressing on the stump. Spoke to the patient and family, all the questions answered. Continue bronchodilator, keep head at 45 degrees. Gastric prophylaxis, deep venous thrombosis prophylaxis. Pressure ulcer precaution. Cardiology, Renal, and Infectious Diseases followup. Vascular followup. Thank you and we will follow with you. Jt Hayden MD
--- NOTE | 2018-03-06 19:34 | CP.PCM.PN ---
<Ish Mejia - Last Filed: 03/06/18 19:29> Subjective - Date & Time of Evaluation Date of Evaluation: 03/06/18 Time of Evaluation: 19:29 - Subjective Subjective: Podiatry Progress Note for Dr. Pollard 78M seen at bedside for necrotic changes to left digits one day s/p R AKA. Patient is AAO x 3 and NAD, resting in bed. Denies any acute overnight events. States that pain to AKA site is well controlled. States that he still has intermittent bursts of pain to his LLE. Denies any further pedal complaints at this time. Denies any recent N/V/F/C/CP/SOB/D/posterior calf pain when squeezed Objective - Vital Signs/Intake and Output Vital Signs (last 24 hours): Temp Pulse Resp BP Pulse Ox 97.5 F L 65 20 115/67 94 L 03/06/18 14:00 03/06/18 18:29 03/06/18 14:00 03/06/18 18:29 03/06/18 14:00 Intake and Output: 03/06/18 03/07/18 18:59 06:59 Intake Total 360 Balance 360 - Medications Medications: Current Medications Acetaminophen (Tylenol 325mg Tab) 650 mg PO Q6H PRN PRN Reason: Pain, severe (8-10) Last Admin: 03/04/18 10:12 Dose: 650 mg Albuterol/Ipratropium (Duoneb 3 Mg/0.5 Mg (3 Ml) Ud) 3 ml IH [id number] [facility] Last Admin: 03/06/18 13:40 Dose: Not Given Amlodipine Besylate (Norvasc) 10 mg PO DAILY [facility] Last Admin: 03/06/18 10:11 Dose: 10 mg Atorvastatin Calcium (Lipitor) 20 mg PO DIN [facility] Last Admin: 03/06/18 17:09 Dose: 20 mg Calcium Carbonate (Caltrate) 600 mg PO DAILY [facility] Last Admin: 03/06/18 10:10 Dose: 600 mg Cilostazol (Pletal) 100 mg PO BID [facility] Last Admin: 03/06/18 18:29 Dose: Not Given Docusate Sodium (Colace) 100 mg PO BID [facility] Last Admin: 03/06/18 18:27 Dose: Not Given Doxercalciferol (Hectorol) 0.5 mcg PO DAILY [facility] Last Admin: 03/06/18 10:08 Dose: 0.5 mcg Ergocalciferol (Drisdol 50,000 Intl Units Cap) 1 cap PO Q7D [facility] Last Admin: 03/02/18 14:04 Dose: 1 cap Heparin Sodium (Porcine) (Heparin) 5,000 units SC Q12 [facility] PRN Reason: Protocol Last Admin: 03/06/18 10:12 Dose: 5,000 units Hydralazine HCl (Apresoline) 10 mg PO QID PRN PRN Reason: for sbp>160 Last Admin: 03/06/18 10:10 Dose: 10 mg Hydromorphone HCl (Dilaudid) 1 mg IVP Q6 PRN PRN Reason: PAIN SEVERE [8-10] Last Admin: 03/06/18 17:43 Dose: 1 mg Iron Sucrose 100 mg/ Sodium (Chloride) 105 mls @ 210 mls/hr IVPB QWK [facility] Last Admin: 02/28/18 11:27 Dose: 210 mls/hr Levothyroxine Sodium (Synthroid) 25 mcg PO 0600 [facility] Magnesium Oxide (Mag-Ox) 400 mg PO BID [facility] Stop: 03/07/18 23:59 Last Admin: 03/06/18 18:29 Dose: Not Given Metoprolol Tartrate (Lopressor) 50 mg PO BID [facility] Last Admin: 03/06/18 18:29 Dose: Not Given Ondansetron HCl (Zofran Inj) 4 mg IVP ONCE PRN PRN Reason: Nausea/Vomiting Pantoprazole Sodium (Protonix Ec Tab) 40 mg PO 0600,1600 [facility] Last Admin: 03/06/18 17:09 Dose: 40 mg Pentoxifylline (Pentoxil) 400 mg PO TID [facility] Last Admin: 03/06/18 18:29 Dose: Not Given Tramadol HCl (Ultram) 50 mg PO TID [facility] Last Admin: 03/06/18 18:30 Dose: Not Given - Labs Labs: 03/06/18 07:00 03/06/18 07:00 PT 12.7 SECONDS (9.4-12.5) H 03/04/18 13:00 INR 1.10 (0.93-1.08) H 03/04/18 13:00 APTT 30.6 Seconds (25.1-36.5) 03/04/18 13:00 - Constitutional Appears: Well, Non-toxic, No Acute Distress - Head Exam Head Exam: ATRAUMATIC, NORMOCEPHALIC - Extremities Exam Additional comments: LLE focused exam Vasc: DP and PT pulses unpalpable, temperature gradient cool to cool, no edema noted to the LE, CFT > 3 seconds to the digits Derm: Left foot digit 3 and 4 appear hyperpigmented and gangrenous with no open lesions, distinct demarcation noted. No drainage, no erythema, no streaking, no clinical suspicion of active infection. All gangrenous changes noted to be dry and stable. No evidence of new gangrenous changes since last examination Neuro: Epicritic and protective sensation grossly diminished b/l Ortho: Mild pain on the left forefoot, unable to perform MMT secondary to guarding. - Neurological Exam Neurological Exam: Alert, Awake, Oriented x3 - Psychiatric Exam Psychiatric exam: Normal Affect, Normal Mood Assessment and Plan - Assessment and Plan (Free Text) Assessment: 78M seen and examined at bedside for gangrenous changes to left third and fourth digits Plan: Patient seen and evaluated Plan discussed with attending Dr. Pollard Afebrile, WBC 18.8 from 15.4 most likely secondary to AKA Continue pain medication All gangrenous changes painted with betadine No plan for surgical intervention at this time Podiatry will continue to follow while patient in house <Jason Pollard - Last Filed: 03/07/18 07:22> Objective - Vital Signs/Intake and Output Vital Signs (last 24 hours): Temp Pulse Resp BP Pulse Ox 97.5 F L 72 20 119/70 94 L 03/06/18 22:38 03/06/18 22:38 03/06/18 22:38 03/06/18 22:38 03/06/18 22:38 - Medications Medications: Current Medications Acetaminophen (Tylenol 325mg Tab) 650 mg PO Q6H PRN PRN Reason: Pain, severe (8-10) Last Admin: 03/04/18 10:12 Dose: 650 mg Albuterol/Ipratropium (Duoneb 3 Mg/0.5 Mg (3 Ml) Ud) 3 ml IH [id number] [facility] Last Admin: 03/07/18 07:12 Dose: Not Given Amlodipine Besylate (Norvasc) 10 mg PO DAILY [facility] Last Admin: 03/06/18 10:11 Dose: 10 mg Atorvastatin Calcium (Lipitor) 20 mg PO DIN [facility] Last Admin: 03/06/18 17:09 Dose: 20 mg Calcium Carbonate (Caltrate) 600 mg PO DAILY [facility] Last Admin: 03/06/18 10:10 Dose: 600 mg Cilostazol (Pletal) 100 mg PO BID [facility] Last Admin: 03/06/18 18:29 Dose: Not Given Docusate Sodium (Colace) 100 mg PO BID [facility] Last Admin: 03/06/18 18:27 Dose: Not Given Doxercalciferol (Hectorol) 0.5 mcg PO DAILY [facility] Last Admin: 03/06/18 10:08 Dose: 0.5 mcg Ergocalciferol (Drisdol 50,000 Intl Units Cap) 1 cap PO Q7D [facility] Last Admin: 03/02/18 14:04 Dose: 1 cap Heparin Sodium (Porcine) (Heparin) 5,000 units SC Q12 [facility] PRN Reason: Protocol Last Admin: 03/06/18 21:36 Dose: 5,000 units Hydralazine HCl (Apresoline) 10 mg PO QID PRN PRN Reason: for sbp>160 Last Admin: 03/06/18 10:10 Dose: 10 mg Hydromorphone HCl (Dilaudid) 1 mg IVP Q6 PRN PRN Reason: PAIN SEVERE [8-10] Last Admin: 03/06/18 17:43 Dose: 1 mg Iron Sucrose 100 mg/ Sodium (Chloride) 105 mls @ 210 mls/hr IVPB QWK [facility] Last Admin: 02/28/18 11:27 Dose: 210 mls/hr Levothyroxine Sodium (Synthroid) 25 mcg PO 0600 [facility] Magnesium Oxide (Mag-Ox) 400 mg PO BID [facility] Stop: 03/07/18 23:59 Last Admin: 03/06/18 18:29 Dose: Not Given Metoprolol Tartrate (Lopressor) 50 mg PO BID [facility] Last Admin: 03/06/18 18:29 Dose: Not Given Ondansetron HCl (Zofran Inj) 4 mg IVP ONCE PRN PRN Reason: Nausea/Vomiting Pantoprazole Sodium (Protonix Ec Tab) 40 mg PO 0600,1600 [facility] Last Admin: 03/06/18 17:09 Dose: 40 mg Pentoxifylline (Pentoxil) 400 mg PO TID [facility] Last Admin: 03/06/18 18:29 Dose: Not Given Tramadol HCl (Ultram) 50 mg PO TID [facility] Last Admin: 03/07/18 07:09 Dose: 50 mg - Labs Labs: 03/06/18 07:00 03/06/18 07:00 PT 12.7 SECONDS (9.4-12.5) H 03/04/18 13:00 INR 1.10 (0.93-1.08) H 03/04/18 13:00 APTT 30.6 Seconds (25.1-36.5) 03/04/18 13:00 Attending/Attestation - Attestation I have personally seen and examined this patient.: Yes I have fully participated in the care of the patient.: Yes I have reviewed all pertinent clinical information, including history, physical exam and plan: Yes
[2018-03-07] MEDS: Albuterol-Ipratrop 3 mg / 0.5 (3 ml) UD IH SCH ×4 (01:31→20:27)
--- NOTE | 2018-03-07 05:34 | PN ---
DATE: 03/06/2018 SUBJECTIVE: The patient is 77-year-old male. The patient was seen and examined at the bedside on 03/06/2018, looking comfortable. No nausea, vomiting, diarrhea. No hematuria or hemochezia. Appetite is poor. Still complaining about leg pain. No fever. No chills. No headache. No dizziness. No sputum production. Right stump pain is better. Left foot pain is still there. PHYSICAL EXAMINATION: VITAL SIGNS: Temperature 98, heart rate 65, respiratory rate 20, blood pressure 115/67, pulse oximetry 95% on nasal cannula. HEENT: Head normocephalic, atraumatic. Eyes, PERRLA. Extraocular muscles intact. Conjunctivae clear. Nose patent. Mucous membrane moist. NECK: Supple. No carotid bruit. No JVD or thyromegaly. CHEST: Bilaterally symmetrical. HEART: S1 and S2 positive. LUNGS: Clear to auscultation. ABDOMEN: Soft. Bowel sounds positive. No organomegaly. EXTREMITIES: Right stump pain has decreased, left foot has still ischemic changes. NEUROLOGICAL: Awake and alert. Follows simple commands. MEDICATIONS: Hydralazine, Colace, Dilaudid, DuoNeb, Lipitor, metoprolol, Norvasc, pentoxifylline, Pletal, Protonix, Synthroid, tramadol, Zofran. LABORATORY DATA: Hemoglobin 8.2, hematocrit 24.9, white blood cells 18.8, platelets 261. Sodium 135, potassium 4.3, BUN 41, creatinine 4.3, ALT 15. ASSESSMENT AND PLAN: Mr. Geovanna Guerra is a 77-year-old male with history of heavy smoking, anemia, leukocytosis, electrolyte imbalance, has chronic obstructive lung disease, renal failure, perihilar infiltrates, multiple ischemic areas of the left lower extremity, pulmonary hypertension, history of cerebrovascular accident, status post right above knee amputation, has dressing on the stump. I spoke to the patient. All questions answered. Continue bronchodilators. Gastric prophylaxis, deep vein thrombosis prophylaxis. All consultants' notes are appreciated. We will follow up. Shivani Walters MD [facility] # [id number] MTDD
--- NOTE | 2018-03-07 08:03 | CP.PCM.PN ---
Subjective - Date & Time of Evaluation Date of Evaluation: 03/07/18 Time of Evaluation: 06:45 - Subjective Subjective: Vascular Surgery Note for Dr. Hudson Patient seen and examined at bedside. He is s/p R AKA POD#2. This morning, he had straight cath again that removed ~600 cc of urine again. Patient has a GFR of 12 mls/min indicationg Stage 5 chronic kidney disease. He is also still complaining of right stump pain. Patient is tolerating diet. Patient has no other complaints at this time. Objective - Vital Signs/Intake and Output Vital Signs (last 24 hours): Temp Pulse Resp BP Pulse Ox 97.5 F L 72 20 119/70 94 L 03/06/18 22:38 03/06/18 22:38 03/06/18 22:38 03/06/18 22:38 03/06/18 22:38 - Medications Medications: Current Medications Acetaminophen (Tylenol 325mg Tab) 650 mg PO Q6H PRN PRN Reason: Pain, severe (8-10) Last Admin: 03/04/18 10:12 Dose: 650 mg Albuterol/Ipratropium (Duoneb 3 Mg/0.5 Mg (3 Ml) Ud) 3 ml IH [id number] [facility] Last Admin: 03/07/18 07:12 Dose: Not Given Amlodipine Besylate (Norvasc) 10 mg PO DAILY [facility] Last Admin: 03/06/18 10:11 Dose: 10 mg Atorvastatin Calcium (Lipitor) 20 mg PO DIN [facility] Last Admin: 03/06/18 17:09 Dose: 20 mg Calcium Carbonate (Caltrate) 600 mg PO DAILY [facility] Last Admin: 03/06/18 10:10 Dose: 600 mg Cilostazol (Pletal) 100 mg PO BID [facility] Last Admin: 03/06/18 18:29 Dose: Not Given Docusate Sodium (Colace) 100 mg PO BID [facility] Last Admin: 03/06/18 18:27 Dose: Not Given Doxercalciferol (Hectorol) 0.5 mcg PO DAILY [facility] Last Admin: 03/06/18 10:08 Dose: 0.5 mcg Ergocalciferol (Drisdol 50,000 Intl Units Cap) 1 cap PO Q7D [facility] Last Admin: 03/02/18 14:04 Dose: 1 cap Heparin Sodium (Porcine) (Heparin) 5,000 units SC Q12 [facility] PRN Reason: Protocol Last Admin: 03/06/18 21:36 Dose: 5,000 units Hydralazine HCl (Apresoline) 10 mg PO QID PRN PRN Reason: for sbp>160 Last Admin: 03/06/18 10:10 Dose: 10 mg Hydromorphone HCl (Dilaudid) 1 mg IVP Q6 PRN PRN Reason: PAIN SEVERE [8-10] Last Admin: 03/06/18 17:43 Dose: 1 mg Iron Sucrose 100 mg/ Sodium (Chloride) 105 mls @ 210 mls/hr IVPB QWK [facility] Last Admin: 02/28/18 11:27 Dose: 210 mls/hr Levothyroxine Sodium (Synthroid) 25 mcg PO 0600 [facility] Magnesium Oxide (Mag-Ox) 400 mg PO BID [facility] Stop: 03/07/18 23:59 Last Admin: 03/06/18 18:29 Dose: Not Given Metoprolol Tartrate (Lopressor) 50 mg PO BID [facility] Last Admin: 03/06/18 18:29 Dose: Not Given Ondansetron HCl (Zofran Inj) 4 mg IVP ONCE PRN PRN Reason: Nausea/Vomiting Pantoprazole Sodium (Protonix Ec Tab) 40 mg PO 0600,1600 [facility] Last Admin: 03/06/18 17:09 Dose: 40 mg Pentoxifylline (Pentoxil) 400 mg PO TID [facility] Last Admin: 03/06/18 18:29 Dose: Not Given Tramadol HCl (Ultram) 50 mg PO TID [facility] Last Admin: 03/07/18 07:09 Dose: 50 mg - Labs Labs: 03/06/18 07:00 03/06/18 07:00 PT 12.7 SECONDS (9.4-12.5) H 03/04/18 13:00 INR 1.10 (0.93-1.08) H 03/04/18 13:00 APTT 30.6 Seconds (25.1-36.5) 03/04/18 13:00 - Additional Findings Additional findings: - Constitutional Appears: No Acute Distress - Head Exam Head Exam: ATRAUMATIC, NORMOCEPHALIC - Eye Exam Eye Exam: Normal appearance - ENT Exam ENT Exam: Mucous Membranes Moist - Respiratory Exam Respiratory Exam: NORMAL BREATHING PATTERN - Cardiovascular Exam Cardiovascular Exam: REGULAR RHYTHM - GI/Abdominal Exam GI & Abdominal Exam: Soft, Normal Bowel Sounds. absent: Tenderness - Extremities Exam Additional comments: R stump with dressing clean dry intact - Neurological Exam Neurological Exam: Alert, Awake - Psychiatric Exam Psychiatric exam: Normal Affect, Normal Mood - Skin Skin Exam: Dry, Warm Assessment and Plan - Assessment and Plan (Free Text) Assessment: 78 M s/p Right AKA POD#2 Plan: -Do not touch or remove dressing, if issue call Surgery team -Analgesics PRN -Monitor Urine output -Bladder scan PRN -Patient and family will need to consider dialysis moving forward (GFR 12 mls/ min, Stage V CKD) -Further recommendations as per Dr. Tristan Thrasher PGY1
[2018-03-07] MEDS ORDERED: Darbepoetin Alfa 100 mcg/ml Inj SC ONE (08:15)
--- NOTE | 2018-03-07 08:15 | CP.PCM.PN ---
<Rocio Means - Last Filed: 03/07/18 08:12> Subjective - Date & Time of Evaluation Date of Evaluation: 03/07/18 Time of Evaluation: 08:12 - Subjective Subjective: Podiatry Progress Note for Dr. Pollard 78 year old male seen at bedside with attending, Dr. Pollard regarding necrotic changes to left digits and is 2 days s/p R AKA. Patient is AAO x 3 and NAD, resting in bed. Denies any acute overnight events. States that he still has intermittent bursts of pain to his LLE. Denies any further pedal complaints at this time. Currently denies any n/v/f/c/sob/cp. Objective - Vital Signs/Intake and Output Vital Signs (last 24 hours): Temp Pulse Resp BP Pulse Ox 97.5 F L 72 20 119/70 94 L 03/06/18 22:38 03/06/18 22:38 03/06/18 22:38 03/06/18 22:38 03/06/18 22:38 - Medications Medications: Current Medications Acetaminophen (Tylenol 325mg Tab) 650 mg PO Q6H PRN PRN Reason: Pain, severe (8-10) Last Admin: 03/04/18 10:12 Dose: 650 mg Albuterol/Ipratropium (Duoneb 3 Mg/0.5 Mg (3 Ml) Ud) 3 ml IH [id number] [facility] Last Admin: 03/07/18 07:12 Dose: Not Given Amlodipine Besylate (Norvasc) 10 mg PO DAILY [facility] Last Admin: 03/06/18 10:11 Dose: 10 mg Atorvastatin Calcium (Lipitor) 20 mg PO DIN [facility] Last Admin: 03/06/18 17:09 Dose: 20 mg Calcium Acetate (Phoslo) 667 mg PO [facility] Calcium Carbonate (Caltrate) 600 mg PO DAILY [facility] Last Admin: 03/06/18 10:10 Dose: 600 mg Cilostazol (Pletal) 100 mg PO BID [facility] Last Admin: 03/06/18 18:29 Dose: Not Given Darbepoetin Matt (Aranesp) 100 mcg SC ONCE ONE Stop: 03/07/18 08:16 Docusate Sodium (Colace) 100 mg PO BID [facility] Last Admin: 03/06/18 18:27 Dose: Not Given Doxercalciferol (Hectorol) 0.5 mcg PO DAILY [facility] Last Admin: 03/06/18 10:08 Dose: 0.5 mcg Ergocalciferol (Drisdol 50,000 Intl Units Cap) 1 cap PO Q7D [facility] Last Admin: 03/02/18 14:04 Dose: 1 cap Heparin Sodium (Porcine) (Heparin) 5,000 units SC Q12 [facility] PRN Reason: Protocol Last Admin: 03/06/18 21:36 Dose: 5,000 units Hydralazine HCl (Apresoline) 10 mg PO QID PRN PRN Reason: for sbp>160 Last Admin: 03/06/18 10:10 Dose: 10 mg Hydromorphone HCl (Dilaudid) 1 mg IVP Q6 PRN PRN Reason: PAIN SEVERE [8-10] Last Admin: 03/06/18 17:43 Dose: 1 mg Iron Sucrose 100 mg/ Sodium (Chloride) 105 mls @ 210 mls/hr IVPB QWK [facility] Last Admin: 02/28/18 11:27 Dose: 210 mls/hr Levothyroxine Sodium (Synthroid) 25 mcg PO 0600 [facility] Magnesium Oxide (Mag-Ox) 400 mg PO BID [facility] Stop: 03/07/18 23:59 Last Admin: 03/06/18 18:29 Dose: Not Given Metoprolol Tartrate (Lopressor) 50 mg PO BID [facility] Last Admin: 03/06/18 18:29 Dose: Not Given Ondansetron HCl (Zofran Inj) 4 mg IVP ONCE PRN PRN Reason: Nausea/Vomiting Pantoprazole Sodium (Protonix Ec Tab) 40 mg PO 0600,1600 [facility] Last Admin: 03/06/18 17:09 Dose: 40 mg Pentoxifylline (Pentoxil) 400 mg PO TID [facility] Last Admin: 03/06/18 18:29 Dose: Not Given Tramadol HCl (Ultram) 50 mg PO TID [facility] Last Admin: 03/07/18 07:09 Dose: 50 mg - Labs Labs: 03/06/18 07:00 03/06/18 07:00 PT 12.7 SECONDS (9.4-12.5) H 03/04/18 13:00 INR 1.10 (0.93-1.08) H 03/04/18 13:00 APTT 30.6 Seconds (25.1-36.5) 03/04/18 13:00 - Constitutional Appears: Non-toxic, No Acute Distress - Extremities Exam Additional comments: Right lower extremity exam: AKA noted Left lower extremity focused exam: Vasc: DP and PT pulses non-palpable, temperature gradient cool to cool, no edema noted to the LE, CFT > 3 seconds to the digits Derm: Left foot digit 3 and 4 appear hyperpigmented and gangrenous with no open lesions, distinct demarcation noted. No drainage, no erythema, no streaking, no clinical suspicion of active infection. All gangrenous changes noted to be dry and stable. No evidence of new gangrenous changes since last examination Neuro: Epicritic and protective sensation grossly diminished b/l Ortho: Mild pain on the left forefoot, unable to perform MMT secondary to guarding. - Neurological Exam Neurological Exam: Alert, Awake, Oriented x3 - Psychiatric Exam Psychiatric exam: Normal Affect, Normal Mood Assessment and Plan - Assessment and Plan (Free Text) Assessment: 78 year old male with gangrenous changes to left third and fourth digits Plan: Patient seen and evaluated with attending Dr. Pollard Afebrile, WBC 18.8 (03/06/18) from 15.4 most likely secondary to AKA Continue pain medication All gangrenous changes painted with betadine, dressed with adaptic DSD No plan for surgical intervention at this time Podiatry will continue to follow while patient in house <Jason Pollard - Last Filed: 03/10/18 11:25> Objective - Vital Signs/Intake and Output Vital Signs (last 24 hours): Temp Pulse Resp BP Pulse Ox 98.6 F 64 20 123/67 95 03/08/18 06:00 03/08/18 11:15 03/08/18 06:00 03/08/18 11:15 03/08/18 06:00 - Labs Labs: 03/08/18 08:00 03/08/18 08:00 PT 12.7 SECONDS (9.4-12.5) H 03/04/18 13:00 INR 1.10 (0.93-1.08) H 03/04/18 13:00 APTT 30.6 Seconds (25.1-36.5) 03/04/18 13:00 Attending/Attestation - Attestation I have personally seen and examined this patient.: Yes I have fully participated in the care of the patient.: Yes I have reviewed all pertinent clinical information, including history, physical exam and plan: Yes
[2018-03-07] MEDS: Levothyroxine 25 MCG TAB PO SCH (08:17)
[2018-03-07] MEDS: Pantoprazole 40 mg EC Tab PO SCH ×2 (08:17→17:44)
--- NOTE | 2018-03-07 08:20 | CP.PCM.PN ---
Subjective - Date & Time of Evaluation Date of Evaluation: 03/07/18 Time of Evaluation: 06:50 - Subjective Subjective: Awake, no distress,lying in bed, post above knee amputation of right leg Reason for consultation and follow up: Cardiac evaluation/clearance for possible amputation of gangrened toes, History of peripheral arterial disease, coronary artery disease,, diastolic CHF, stage 4 chronic kidney disease, GI bleed, and hypertension. Seen and examined by me and Dr. Figueroa Objective - Vital Signs/Intake and Output Vital Signs (last 24 hours): Temp Pulse Resp BP Pulse Ox 97.5 F L 72 20 119/70 94 L 03/06/18 22:38 03/06/18 22:38 03/06/18 22:38 03/06/18 22:38 03/06/18 22:38 - Medications Medications: Current Medications Acetaminophen (Tylenol 325mg Tab) 650 mg PO Q6H PRN PRN Reason: Pain, severe (8-10) Last Admin: 03/04/18 10:12 Dose: 650 mg Albuterol/Ipratropium (Duoneb 3 Mg/0.5 Mg (3 Ml) Ud) 3 ml IH [id number] [facility] Last Admin: 03/07/18 07:12 Dose: Not Given Amlodipine Besylate (Norvasc) 10 mg PO DAILY [facility] Last Admin: 03/06/18 10:11 Dose: 10 mg Atorvastatin Calcium (Lipitor) 20 mg PO DIN [facility] Last Admin: 03/06/18 17:09 Dose: 20 mg Calcium Acetate (Phoslo) [address] [facility] Calcium Carbonate (Caltrate) 600 mg PO DAILY [facility] Last Admin: 03/06/18 10:10 Dose: 600 mg Cilostazol (Pletal) 100 mg PO BID [facility] Last Admin: 03/06/18 18:29 Dose: Not Given Docusate Sodium (Colace) 100 mg PO BID [facility] Last Admin: 03/06/18 18:27 Dose: Not Given Doxercalciferol (Hectorol) 0.5 mcg PO DAILY [facility] Last Admin: 03/06/18 10:08 Dose: 0.5 mcg Ergocalciferol (Drisdol 50,000 Intl Units Cap) 1 cap PO Q7D [facility] Last Admin: 03/02/18 14:04 Dose: 1 cap Heparin Sodium (Porcine) (Heparin) 5,000 units SC Q12 MARGOTH PRN Reason: Protocol Last Admin: 03/06/18 21:36 Dose: 5,000 units Hydralazine HCl (Apresoline) 10 mg PO QID PRN PRN Reason: for sbp>160 Last Admin: 03/06/18 10:10 Dose: 10 mg Hydromorphone HCl (Dilaudid) 1 mg IVP Q6 PRN PRN Reason: PAIN SEVERE [8-10] Last Admin: 03/06/18 17:43 Dose: 1 mg Iron Sucrose 100 mg/ Sodium (Chloride) 105 mls @ 210 mls/hr IVPB QWK [facility] Last Admin: 02/28/18 11:27 Dose: 210 mls/hr Levothyroxine Sodium (Synthroid) 25 mcg PO 0600 [facility] Last Admin: 03/07/18 08:17 Dose: 25 mcg Magnesium Oxide (Mag-Ox) 400 mg PO BID [facility] Stop: 03/07/18 23:59 Last Admin: 03/06/18 18:29 Dose: Not Given Metoprolol Tartrate (Lopressor) 50 mg PO BID [facility] Last Admin: 03/06/18 18:29 Dose: Not Given Ondansetron HCl (Zofran Inj) 4 mg IVP ONCE PRN PRN Reason: Nausea/Vomiting Pantoprazole Sodium (Protonix Ec Tab) 40 mg PO 0600,1600 [facility] Last Admin: 03/07/18 08:17 Dose: 40 mg Pentoxifylline (Pentoxil) 400 mg PO TID [facility] Last Admin: 03/06/18 18:29 Dose: Not Given Tramadol HCl (Ultram) 50 mg PO TID [facility] Last Admin: 03/07/18 07:09 Dose: 50 mg - Labs Labs: 03/06/18 07:00 03/06/18 07:00 PT 12.7 SECONDS (9.4-12.5) H 03/04/18 13:00 INR 1.10 (0.93-1.08) H 03/04/18 13:00 APTT 30.6 Seconds (25.1-36.5) 03/04/18 13:00 - Constitutional Appears: No Acute Distress - Head Exam Head Exam: NORMOCEPHALIC - Eye Exam Eye Exam: Normal appearance - ENT Exam ENT Exam: Mucous Membranes Moist - Respiratory Exam Respiratory Exam: Decreased Breath Sounds, NORMAL BREATHING PATTERN - Cardiovascular Exam Cardiovascular Exam: +S1, +S2 - GI/Abdominal Exam GI & Abdominal Exam: Soft, Normal Bowel Sounds - Extremities Exam Additional comments: right AKA stump dressing Left medial toe necrosis - Neurological Exam Neurological Exam: Alert, Awake - Psychiatric Exam Psychiatric exam: Normal Affect, Normal Mood - Skin Skin Exam: Normal Color, Warm Assessment and Plan - Assessment and Plan (Free Text) Assessment: A 78 year old male who came in to the ER from [facility] due to painful toes. History of peripheral arterial disease,coronary artery disease,, diastolic CHF, stage 4 chronic kidney disease, GI bleed, and hypertension. 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 Figueroa
[2018-03-07 08:24] LABS: HEMOGLOBIN 7.8 g/dL (14.0-18.0); MEAN CELL VOLUME 85.8 fl (80.0-105.0); MEAN CORPUSCULAR HEMOGLOBIN 28.4 pg (25.0-35.0); MEAN CORPUSCULAR HGB CONC 33.1 g/dl (31.0-37.0); MEAN PLATELET VOLUME 10.3 fl (7.0-11.0); RBC 2.75 10^6/uL (3.5-6.1); RED CELL DISTRIBUTION WIDTH 16.2 % (11.5-14.5); WHITE BLOOD COUNT 16.5 10^3/ul (4.5-11.0)
[2018-03-07 09:01] LABS: ALB/GLOB RATIO 0.8 (1.1-1.8); ALBUMIN 2.5 g/dL (3.0-4.8); CALCIUM 7.7 mg/dL (8.4-10.5)
[2018-03-07] MEDS: Cilostazol 100 mg Tab UD PO SCH ×2 (09:27→17:44)
[2018-03-07] MEDS: Magnesium Oxide 400 mg Tab UD PO SCH ×2 (09:27→17:44)
[2018-03-07] MEDS ORDERED: Calcium-Vit D 250 mg-125 Units Tab UD PO ONE (12:08)
--- NOTE | 2018-03-07 12:09 | PN ---
DATE: 03/07/2018 SUBJECTIVE: The patient is currently seen lying comfortable in bed. He is postop day #2 status post right above-knee amputation. The patient had an uneventful night according to the patient and according to the nursing staff. His creatinine remains above his baseline levels in the low to mid 4 range. MEDICATIONS: Medication list reviewed. The patient is currently on hydralazine p.r.n., calcium, Colace, Dilaudid, vitamin D, DuoNeb, Hectorol, subcu heparin, IV iron, Lipitor, Lopressor, magnesium oxide, Norvasc, Pentoxil, Pletal, Protonix, Synthroid, Tylenol p.r.n., Ultram and Zofran. PHYSICAL EXAMINATION INTAKE/OUTPUT: Intake is 360, output is not charted. VITAL SIGNS: Blood pressure 119/70, temperature 97.5, respiratory rate 20 with a pulse of 72. HEENT: Shows him to be normocephalic, atraumatic. Conjunctivae remain pale. Sclerae are nonicteric. NECK: Supple. No neck vein distention. CHEST: Clear to auscultation and percussion with no rales, rhonchi or wheezing. CARDIOVASCULAR: Shows regular rate and rhythm with MR/TR. No S3. No S4. No rub. ABDOMEN: Soft. Bowel sounds are normal. No rebound, guarding or masses. EXTREMITIES: Show no edema. He has a bandage and dressing over his right above-knee amputation surgical site. The left lower extremity continues to show gangrenous changes with significantly decreased pulses. LABORATORY DATA AND IMAGING: CBC from yesterday, white blood cell count 18.8, hemoglobin 8.2 with a platelet count of 261,000. Chemistries, normal electrolytes. BUN 41 with a creatinine of 4.3 which has been stable. The patient's baseline BUN is in the upper 20s. His baseline creatinine is in the low to mid 3 range. Calcium 7.5, corrects to normal. Phosphorus mildly elevated at 4.7 with a magnesium level of 1.6. Albumin again was 2.5. Microbiology: Toe culture was positive for coag-negative staph. ASSESSMENT: 1. Acute renal failure superimposed on chronic kidney disease stage IV. The patient has had improvement in his creatinine, but not quite back to baseline levels. His maximum creatinine during hospitalization was 5.5, it is presently 4.3. His baseline creatinine is in the low to mid 3 range. 2. History of right renal artery stenosis. 3. History of hypertension. Blood pressure is currently controlled on present medication. The patient is not a candidate to receive either an ELOY inhibitor or angiotensin receptor gi. We will continue blood pressure control with calcium channel gi therapy, hydralazine and beta gi therapy. 4. History of severe peripheral vascular disease secondary to long history of cigarette smoking. Status post right above-knee amputation. 5. History of secondary hyperparathyroidism. The patient will continue on vitamin D supplements. His phosphorus level is mildly elevated at 4.7 and I will start the patient on binder therapy. The patient will continue renal diet. 6. History of pulmonary hypertension, stable. 7. History of MR/TR, stable. With ejection fraction of 61%. Past history of Clostridium difficile colitis. The patient is currently off oral vancomycin therapy. PLAN: 1. Continue surgical followup. He is postop day #2 for his right AKA. 2. I did not have a discussion with the patient about the possible need for dialysis. 3. In regards to his anemia, trying to keep hemoglobin in the 9-10 range. The patient continues on IV iron therapy and his last dose of Aranesp was approximately 1 week ago. It will be re-dosed today. 4. We will start the patient on binder therapy for the mild elevation of his phosphorus level. The patient will continue renal diet. Mendez Mack MD
--- NOTE | 2018-03-07 14:16 | CP.PCM.PN ---
Subjective - Date & Time of Evaluation Date of Evaluation: 03/06/18 Time of Evaluation: 13:50 - Subjective Subjective: No fevers, not in distress. Objective - Vital Signs/Intake and Output Vital Signs (last 24 hours): Temp Pulse Resp BP Pulse Ox 97.5 F L 72 20 188/78 H 95 03/06/18 06:00 03/06/18 10:11 03/06/18 06:00 03/06/18 10:11 03/06/18 06:00 - Medications Medications: Current Medications Acetaminophen (Tylenol 325mg Tab) 650 mg PO Q6H PRN PRN Reason: Pain, severe (8-10) Last Admin: 03/04/18 10:12 Dose: 650 mg Albuterol/Ipratropium (Duoneb 3 Mg/0.5 Mg (3 Ml) Ud) 3 ml IH [id number] [facility] Last Admin: 03/06/18 07:41 Dose: Not Given Amlodipine Besylate (Norvasc) 10 mg PO DAILY [facility] Last Admin: 03/06/18 10:11 Dose: 10 mg Atorvastatin Calcium (Lipitor) 20 mg PO DIN [facility] Last Admin: 03/05/18 17:05 Dose: 20 mg Calcium Carbonate (Caltrate) 600 mg PO DAILY [facility] Last Admin: 03/06/18 10:10 Dose: 600 mg Cilostazol (Pletal) 100 mg PO BID [facility] Last Admin: 03/06/18 10:15 Dose: 100 mg Docusate Sodium (Colace) 100 mg PO BID [facility] Last Admin: 03/06/18 10:10 Dose: 100 mg Doxercalciferol (Hectorol) 0.5 mcg PO DAILY [facility] Last Admin: 03/06/18 10:08 Dose: 0.5 mcg Ergocalciferol (Drisdol 50,000 Intl Units Cap) 1 cap PO Q7D [facility] Last Admin: 03/02/18 14:04 Dose: 1 cap Heparin Sodium (Porcine) (Heparin) 5,000 units SC Q12 MARGOTH PRN Reason: Protocol Last Admin: 03/06/18 10:12 Dose: 5,000 units Hydralazine HCl (Apresoline) 10 mg PO QID PRN PRN Reason: for sbp>160 Last Admin: 03/06/18 10:10 Dose: 10 mg Hydromorphone HCl (Dilaudid) 1 mg IVP Q6 PRN PRN Reason: PAIN SEVERE [8-10] Last Admin: 03/06/18 08:34 Dose: 1 mg Iron Sucrose 100 mg/ Sodium (Chloride) 105 mls @ 210 mls/hr IVPB QWK [facility] Last Admin: 02/28/18 11:27 Dose: 210 mls/hr Levothyroxine Sodium (Synthroid) 25 mcg PO 0600 [facility] Metoprolol Tartrate (Lopressor) 50 mg PO BID [facility] Last Admin: 03/06/18 10:11 Dose: 50 mg Ondansetron HCl (Zofran Inj) 4 mg IVP ONCE PRN PRN Reason: Nausea/Vomiting Pantoprazole Sodium (Protonix Ec Tab) 40 mg PO 0600,1600 [facility] Last Admin: 03/06/18 06:03 Dose: 40 mg Pentoxifylline (Pentoxil) 400 mg PO TID [facility] Last Admin: 03/06/18 10:10 Dose: 400 mg Tramadol HCl (Ultram) 50 mg PO TID [facility] Last Admin: 03/06/18 10:08 Dose: 50 mg - Labs Labs: 03/06/18 07:00 03/06/18 07:00 PT 12.7 SECONDS (9.4-12.5) H 03/04/18 13:00 INR 1.10 (0.93-1.08) H 03/04/18 13:00 APTT 30.6 Seconds (25.1-36.5) 03/04/18 13:00 - Constitutional Appears: Chronically Ill - Head Exam Head Exam: NORMAL INSPECTION - Neck Exam Neck Exam: absent: Meningismus - Respiratory Exam Respiratory Exam: Decreased Breath Sounds - Cardiovascular Exam Cardiovascular Exam: +S1, +S2 - GI/Abdominal Exam GI & Abdominal Exam: Soft. absent: Tenderness Assessment and Plan - Assessment and Plan (Free Text) Plan: Assessment C. diff. associated diarrhea, clinically improved and S/P treatment history of right 1st toe gangrene with no evidence of active infection, as well gangrene on other toes of both feet - S/P Right AKA POD #2 peripheral vascular disease with necrotic toes and ulceration bilaterally, S/P revascularization consider HCAP, bilateral, clinically improving acute encephalopathy, etiology to be determined, now resolved history of Right foot cellulitis with right hallux gangrene Peripheral vascular disease HTN Plan continue to monitor off antibiotics since he is at risk for nosocomial infections
--- NOTE | 2018-03-07 21:30 | PN ---
DATE: 03/07/2018 REFERRING PHYSICIAN: Shivani Walters MD SUBJECTIVE: He is lying in bed, head at 45 degrees. Night was unremarkable. Feels better. Still has poor appetite. No headache. No rhinitis. Short of breath with exertion. No chest pain. No abdominal pain. Right leg stumps looks okay as it was seen in left leg, foot and toes area. OBJECTIVE: GENERAL: In no acute distress. VITAL SIGNS: Temperature is 98, heart rate 68, respiratory rate is 20, blood pressure 113/63, pulse ox 98% on room air. HEENT: Moist mucous membranes. Crowded airway. NECK: Supple. No JVD. LUNGS: Fair airflow with rhonchi. HEART: S1, S2. ABDOMEN: Soft, nontender. No organomegaly. EXTREMITIES: Right stump has dressing. Left extremity has some ischemic changes. NEUROLOGIC: Awake, alert, follows simple commands. MEDICATIONS: He is on hydralazine 10 mg four times daily p.r.n., calcium carbonate 600 mg daily, Colace 100 mg twice a day, Dilaudid 1 mg every 6 hours p.r.n., vitamin D 50,000 units every 7 days, DuoNeb every 6 hours, heparin 5000 units subcu every 12 hours, iron supplement, Lipitor 20 mg daily, metoprolol tartrate 50 mg twice a day, mag oxide 400 mg twice a day, Norvasc 10 mg daily, Pentoxyl 400 mg three times a day, Pletal 100 mg twice a day, Protonix 40 mg twice a day, Synthroid 25 mcg daily, Tylenol p.r.n. basis, Ultram 50 mg three times a day, Zofran p.r.n. basis. LABORATORY DATA: Shows hemoglobin 7.8, hematocrit 23.6, WBC is 16.5, platelet is 231. Sodium 136, potassium 4, chloride 103, bicarbonate 24, BUN 40, creatinine 4.2, calcium is 7.7, AST 22, ALT 18, alk phos is 127, albumin is 2.5. IMPRESSION AND PLAN: Chronic obstructive lung disease, renal failure, perihilar infiltrate, multiple toes with ischemic changes of the left lower extremity, pulmonary hypertension, history of cerebrovascular accident, status post right above-knee amputation secondary to ischemia. Pulmonary point of view, doing okay, keep head at 45 hours, bronchodilators, encourage p.o. intake, out of bed to chair, possible physical therapy, gastric prophylaxis. Continue peripheral vasodilators. Jt Hayden MD
[2018-03-07 23:00] VITALS: O2SAT 95
--- NOTE | 2018-03-08 00:13 | PN ---
DATE: 03/07/2018 SUBJECTIVE: Patient is seen and examined on the bedside, looking comfortable. No hematuria. No hematochezia. No headache. No dizziness. No chest pain. No palpitation. No fever. No chills. Does not look like in distress. PHYSICAL EXAMINATION: VITAL SIGNS: Temperature 97.5, pulse 72, respiratory rate 20, blood pressure 118/78, pulse oximetry 95. HEENT: Head normocephalic, atraumatic. Eyes, PERRLA. Extraocular muscles intact. Conjunctivae clear. Nose patent. Mucous membrane moist. NECK: Supple. No carotid bruit, JVD, or thyromegaly. CHEST: Bilaterally symmetrical. HEART: S1 and S2 positive. LUNGS: Clear to auscultation. ABDOMEN: Soft. Bowel sounds present. No organomegaly. EXTREMITIES: Upper extremities, no edema, no cyanosis. Lower extremities, has right leg amputation [id number] and left toes are gangrenous. NEUROLOGIC: Awake and alert. Follows simple commands. MEDICATIONS: Tylenol, DuoNeb, Norvasc, Lipitor, Caltrate, Colace, Hectorol, vitamin D, heparin, hydralazine, hydromorphone, Lopressor, Zofran, Protonix, Pentoxil, tramadol. LABORATORY DATA: White blood cells 18.8, hemoglobin 8.3, hematocrit 24.9, platelets 261. Sodium 135, potassium 4.3, BUN 41, creatinine 4.3, glucose 149. ASSESSMENT AND PLAN: Mr. Geovanna Guerra is a 78-year-old male with leukocytosis; anemia, hemoglobin dropped to 7.9, typed and cross-matched 2 units of packed red blood cell and will transfuse; renal insufficiency; hypocalcemia, calcium with vitamin D given; proteinuria; hematuria. Seen by Dr. Fritz Perkins, Infectious Disease. History of Clostridium difficile associated diarrhea, clinically improved status post treatment; history of right first toe gangrene also with no evidence of active infection as well as gangrene of the other toes of both feet, status post right [id number] amputation, postoperative day 2; peripheral vascular disease with necrotic toes and ulceration bilaterally, status post revascularization; healthcare-associated pneumonia bilateral, clinically improving; acute encephalopathy; history of hypertension. Patient is bedridden. Seen by Cardiology and Infectious Disease. Gastrointestinal and deep vein thrombosis prophylaxis. Repeat labs. We will follow. Shivani Walters MD
[2018-03-08] MEDS: Albuterol-Ipratrop 3 mg / 0.5 (3 ml) UD IH SCH ×3 (03:44→13:09)
[2018-03-08] MEDS: Pantoprazole 40 mg EC Tab PO SCH (05:08)
[2018-03-08] MEDS: Levothyroxine 25 MCG TAB PO SCH (05:08)
--- NOTE | 2018-03-08 07:06 | CP.PCM.PN ---
Subjective - Date & Time of Evaluation Date of Evaluation: 03/08/18 Time of Evaluation: 06:20 - Subjective Subjective: Awake, no distress,lying in bed, feels better Reason for consultation and follow up: Cardiac evaluation/clearance for possible amputation of gangrened toes, History of peripheral arterial disease, coronary artery disease,, diastolic CHF, stage 4 chronic kidney disease, GI bleed, and hypertension. Seen and examined by me and Dr. Figueroa Objective - Vital Signs/Intake and Output Vital Signs (last 24 hours): Temp Pulse Resp BP Pulse Ox 97.6 F 63 18 122/73 95 03/08/18 01:58 03/08/18 01:58 03/08/18 01:58 03/08/18 01:58 03/07/18 22:00 Intake and Output: 03/08/18 03/08/18 06:59 18:59 Intake Total 365 Balance 365 - Medications Medications: Current Medications Acetaminophen (Tylenol 325mg Tab) 650 mg PO Q6H PRN PRN Reason: Pain, severe (8-10) Last Admin: 03/08/18 02:11 Dose: 650 mg Albuterol/Ipratropium (Duoneb 3 Mg/0.5 Mg (3 Ml) Ud) 3 ml IH [id number] [facility] Last Admin: 03/08/18 03:44 Dose: Not Given Amlodipine Besylate (Norvasc) 10 mg PO DAILY [facility] Last Admin: 03/07/18 09:27 Dose: 10 mg Atorvastatin Calcium (Lipitor) 20 mg PO DIN [facility] Last Admin: 03/07/18 17:44 Dose: 20 mg Calcium Acetate (Phoslo) 667 mg PO WM [facility] Last Admin: 03/07/18 17:44 Dose: 667 mg Calcium Carbonate (Caltrate) 600 mg PO DAILY [facility] Last Admin: 03/07/18 09:26 Dose: 600 mg Cilostazol (Pletal) 100 mg PO BID [facility] Last Admin: 03/07/18 17:44 Dose: 100 mg Docusate Sodium (Colace) 100 mg PO BID [facility] Last Admin: 03/07/18 17:44 Dose: 100 mg Doxercalciferol (Hectorol) 0.5 mcg PO DAILY [facility] Last Admin: 03/07/18 09:27 Dose: 0.5 mcg Dronabinol (Marinol) 2.5 mg PO BID [facility] Ergocalciferol (Drisdol 50,000 Intl Units Cap) 1 cap PO Q7D [facility] Last Admin: 03/02/18 14:04 Dose: 1 cap Heparin Sodium (Porcine) (Heparin) 5,000 units SC Q12 MARGOTH PRN Reason: Protocol Last Admin: 03/07/18 21:31 Dose: 5,000 units Hydralazine HCl (Apresoline) 10 mg PO QID PRN PRN Reason: for sbp>160 Last Admin: 03/06/18 10:10 Dose: 10 mg Hydromorphone HCl (Dilaudid) 1 mg IVP Q6 PRN PRN Reason: PAIN SEVERE [8-10] Last Admin: 03/06/18 17:43 Dose: 1 mg Iron Sucrose 100 mg/ Sodium (Chloride) 105 mls @ 210 mls/hr IVPB QWK [facility] Last Admin: 03/07/18 09:28 Dose: 210 mls/hr Levothyroxine Sodium (Synthroid) 25 mcg PO 0600 [facility] Last Admin: 03/08/18 05:08 Dose: 25 mcg Metoprolol Tartrate (Lopressor) 50 mg PO BID [facility] Last Admin: 03/07/18 17:44 Dose: 50 mg Ondansetron HCl (Zofran Inj) 4 mg IVP ONCE PRN PRN Reason: Nausea/Vomiting Pantoprazole Sodium (Protonix Ec Tab) 40 mg PO 0600,1600 [facility] Last Admin: 03/08/18 05:08 Dose: 40 mg Pentoxifylline (Pentoxil) 400 mg PO TID [facility] Last Admin: 03/07/18 17:44 Dose: 400 mg Tramadol HCl (Ultram) 50 mg PO TID [facility] Last Admin: 03/07/18 17:45 Dose: 50 mg - Labs Labs: 03/07/18 07:35 03/07/18 07:35 PT 12.7 SECONDS (9.4-12.5) H 03/04/18 13:00 INR 1.10 (0.93-1.08) H 03/04/18 13:00 APTT 30.6 Seconds (25.1-36.5) 03/04/18 13:00 - Constitutional Appears: No Acute Distress - Head Exam Head Exam: NORMOCEPHALIC - Eye Exam Eye Exam: Normal appearance - ENT Exam ENT Exam: Mucous Membranes Moist - Respiratory Exam Respiratory Exam: Clear to Ausculation Bilateral, NORMAL BREATHING PATTERN - Cardiovascular Exam Cardiovascular Exam: +S1, +S2 - GI/Abdominal Exam GI & Abdominal Exam: Soft, Normal Bowel Sounds - Extremities Exam Additional comments: right above knee amputation left middle toe necrotic - Neurological Exam Neurological Exam: Alert, Awake, Oriented x3 - Psychiatric Exam Psychiatric exam: Normal Affect, Normal Mood - Skin Skin Exam: Intact, Normal Color, Warm Assessment and Plan - Assessment and Plan (Free Text) Assessment: A 78 year old male who came in to the ER from [facility] due to painful toes. History of peripheral arterial disease,coronary artery disease,, diastolic CHF, stage 4 chronic kidney disease, GI bleed, and hypertension. 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 (7.8/23.6). [facility] Plan: Claimed to be less pain on right stump PRN pain medication Status post right AKA surgery (POD#3) Controlled heart rate and blood pressure Cardiac status stable Blood transfusion of 1 unit PRBC given for low H/H On Norvasc 10 mg daily, Lipitor 20 mg daily, Lopressor 50 mg BID,Synthroid 25 mg daily Continue current treatment Continue current medications Physical therapy [facility] Will follow up Plan and treatment discussed with Dr. Figueroa
[2018-03-08 08:30] LABS: HEMOGLOBIN 10.8 g/dL (14.0-18.0); MEAN CELL VOLUME 85.8 fl (80.0-105.0); MEAN CORPUSCULAR HEMOGLOBIN 28.3 pg (25.0-35.0); MEAN PLATELET VOLUME 10.1 fl (7.0-11.0); RBC 3.81 10^6/uL (3.5-6.1); RED CELL DISTRIBUTION WIDTH 15.1 % (11.5-14.5); WHITE BLOOD COUNT 12.3 10^3/ul (4.5-11.0)
[2018-03-08 08:42] LABS: ALB/GLOB RATIO 0.9 (1.1-1.8); ALBUMIN 2.6 g/dL (3.0-4.8); CALCIUM 7.7 mg/dL (8.4-10.5)
[2018-03-08 09:43] VITALS: BP 123/67; PULSE 64; RESP 20; TEMP 98.6
--- NOTE | 2018-03-08 09:49 | PN ---
DATE: 03/08/2018 SUBJECTIVE: The patient is currently seen sitting up in bed. He appears to be comfortable. He is postop day #3 status post right [id number] amputation. His renal parameters appear to be stable. He is having no pain or discomfort at the surgical site. MEDICATIONS: Medication list reviewed. The patient is on hydralazine, Caltrate, Colace, Dilaudid p.r.n., vitamin D, DuoNeb, heparin, IV iron, Lipitor, Lopressor, Marinol, Norvasc, Pentoxil, PhosLo, Pletal, Protonix, Synthroid, Tylenol, Ultram and Zofran. OBJECTIVE: INTAKE/OUTPUT: Intake is 694, output is not charted. VITAL SIGNS: Blood pressure is 122/73, temperature 97.6, pulse of 63 with a RR of 18. Pulse ox is 95%. HEENT: Exam shows him to be normocephalic, atraumatic. Conjunctivae are pale. Sclerae are nonicteric. NECK: Supple. No neck vein distention. CHEST: Clear to auscultation and percussion with no rales, rhonchi or wheezing. CARDIOVASCULAR: Shows a regular rate and rhythm with MR/TR. No S3, no S4. No rub. ABDOMEN: Soft. Bowel sounds normal. No rebound, guarding or masses. EXTREMITIES: Show a dressing over his right [id number] amputation surgical site. This was not examined. His lower extremity on the left side has gangrenous changes, but it is in his boot and was not examined. Diminished lower extremity pulses on the left side as per previous examinations. LABORATORY DATA AND IMAGING DATA: CBC: White blood cell count today is 12.3, improved. Hemoglobin is 10.8, improved. The patient has received a total of four units of packed red blood cells. Platelet count is 179,000. Chemistries show normal electrolytes. BUN 40 with a creatinine of 4.1, which is entirely stable. The patient's baseline BUN is in the upper 20 range; prior to the hospitalization, his baseline creatinine was in the mid three range. Calcium is 7.7, corrects to normal for an albumin of 2.6. Last phosphorus was 4.7. The patient is on binder therapy. last magnesium was 1.6. Microbiology: Toe culture was positive for coag-negative staph. ASSESSMENT: 1. Acute renal failure superimposed on chronic kidney disease stage IV. The patient has had continued improvement in his renal parameters. He is still above baseline levels. I will obtain a 24-hour urine for creatinine clearance and protein to establish a residual for his renal function. 2. History of right renal artery stenosis. 3. History of hypertension. Blood pressure controlled on present medical therapy. The patient will continue present medical therapy with no plans to use an ELOY inhibitor or an angiotensin receptor gi in light of his advanced chronic kidney disease and renal artery stenosis. We will continue on calcium channel gi, hydralazine and beta gi therapy. 4. History of severe peripheral vascular disease, likely secondary to long history of cigarette smoking, status post right [id number] amputation. 5. History of secondary hyperparathyroidism. The patient had been started on binder therapy. 6. History of pulmonary hypertension, stable. 7. History of mitral regurgitation/tricuspid regurgitation, stable with ejection fraction of 61%. 8. Past history of clostridium difficile colitis. The patient has completed a course of oral vancomycin therapy. PLAN: 1. Continue local wound care and surgical followup. He is day #3 status post right AKA. 2. Explained to the patient that we will establish a residual for his renal function. We did not discuss the need for dialysis as his creatinine appears to have stabilized. 3. In regards to his anemia, the patient will continue to receive Aranesp pending hemoglobin levels. He will receive periodic transfusions as necessary. 4. Continue renal diet and binder therapy. Mendez Mack MD [facility]
--- NOTE | 2018-03-08 10:14 | CP.PCM.PN ---
Subjective - Date & Time of Evaluation Date of Evaluation: 03/08/18 Time of Evaluation: 09:30 - Subjective Subjective: Patient seen and examined at bedside. Patient reports pain is well controlled on current regimen. Denies any other symptoms. Patient received 2 units of PRBC yesterday d/t decreased hemoglobin and responded appropriately according to this AM hgb Objective - Vital Signs/Intake and Output Vital Signs (last 24 hours): Temp Pulse Resp BP Pulse Ox 98.6 F 64 20 123/67 95 03/08/18 06:00 03/08/18 06:00 03/08/18 06:00 03/08/18 06:00 03/08/18 06:00 Intake and Output: 03/08/18 03/08/18 06:59 18:59 Intake Total 365 Balance 365 - Medications Medications: Current Medications Acetaminophen (Tylenol 325mg Tab) 650 mg PO Q6H PRN PRN Reason: Pain, severe (8-10) Last Admin: 03/08/18 02:11 Dose: 650 mg Albuterol/Ipratropium (Duoneb 3 Mg/0.5 Mg (3 Ml) Ud) 3 ml IH [id number] [facility] Last Admin: 03/08/18 07:31 Dose: Not Given Amlodipine Besylate (Norvasc) 10 mg PO DAILY [facility] Last Admin: 03/07/18 09:27 Dose: 10 mg Atorvastatin Calcium (Lipitor) 20 mg PO DIN [facility] Last Admin: 03/07/18 17:44 Dose: 20 mg Calcium Acetate (Phoslo) 667 mg PO WM [facility] Last Admin: 03/07/18 17:44 Dose: 667 mg Calcium Carbonate (Caltrate) 600 mg PO DAILY [facility] Last Admin: 03/07/18 09:26 Dose: 600 mg Cilostazol (Pletal) 100 mg PO BID [facility] Last Admin: 03/07/18 17:44 Dose: 100 mg Docusate Sodium (Colace) 100 mg PO BID [facility] Last Admin: 03/07/18 17:44 Dose: 100 mg Doxercalciferol (Hectorol) 0.5 mcg PO DAILY [facility] Last Admin: 03/07/18 09:27 Dose: 0.5 mcg Dronabinol (Marinol) 2.5 mg PO BID [facility] Ergocalciferol (Drisdol 50,000 Intl Units Cap) 1 cap PO Q7D [facility] Last Admin: 03/02/18 14:04 Dose: 1 cap Heparin Sodium (Porcine) (Heparin) 5,000 units SC Q12 MARGOTH PRN Reason: Protocol Last Admin: 03/07/18 21:31 Dose: 5,000 units Hydralazine HCl (Apresoline) 10 mg PO QID PRN PRN Reason: for sbp>160 Last Admin: 03/06/18 10:10 Dose: 10 mg Hydromorphone HCl (Dilaudid) 1 mg IVP Q6 PRN PRN Reason: PAIN SEVERE [8-10] Last Admin: 03/06/18 17:43 Dose: 1 mg Iron Sucrose 100 mg/ Sodium (Chloride) 105 mls @ 210 mls/hr IVPB QWK [facility] Last Admin: 03/07/18 09:28 Dose: 210 mls/hr Levothyroxine Sodium (Synthroid) 25 mcg PO 0600 [facility] Last Admin: 03/08/18 05:08 Dose: 25 mcg Metoprolol Tartrate (Lopressor) 50 mg PO BID [facility] Last Admin: 03/07/18 17:44 Dose: 50 mg Ondansetron HCl (Zofran Inj) 4 mg IVP ONCE PRN PRN Reason: Nausea/Vomiting Pantoprazole Sodium (Protonix Ec Tab) 40 mg PO 0600,1600 [facility] Last Admin: 03/08/18 05:08 Dose: 40 mg Pentoxifylline (Pentoxil) 400 mg PO TID [facility] Last Admin: 03/07/18 17:44 Dose: 400 mg Tramadol HCl (Ultram) 50 mg PO TID [facility] Last Admin: 03/07/18 17:45 Dose: 50 mg - Labs Labs: 03/08/18 08:00 03/08/18 08:00 PT 12.7 SECONDS (9.4-12.5) H 03/04/18 13:00 INR 1.10 (0.93-1.08) H 03/04/18 13:00 APTT 30.6 Seconds (25.1-36.5) 03/04/18 13:00 - Constitutional Appears: Well, Non-toxic, No Acute Distress - Head Exam Head Exam: ATRAUMATIC, NORMOCEPHALIC - Eye Exam Eye Exam: Normal appearance. absent: Conjunctival injection, Scleral icterus - ENT Exam ENT Exam: Mucous Membranes Moist, Normal Oropharynx - Respiratory Exam Respiratory Exam: NORMAL BREATHING PATTERN. absent: Accessory Muscle Use, Respiratory Distress - GI/Abdominal Exam GI & Abdominal Exam: Soft. absent: Distended, Tenderness - Extremities Exam Additional comments: right AKA site with dressing Dry and intact, no surrounding swelling or erythema in the exposed leg - Neurological Exam Neurological Exam: Alert, Awake, Oriented x3 - Psychiatric Exam Psychiatric exam: Normal Affect, Normal Mood - Skin Skin Exam: Dry, Intact, Normal Color, Warm Assessment and Plan - Assessment and Plan (Free Text) Assessment: 78M POD #3 s/p right AKA Plan: Continue to trend H/H and transfuse as needed for anemia or hemodynamic instability Continue PO pain medication Occupational/physical therapy Continue left foot local wound care per podiatry--no surgical intervention planned at this time Medical management per primary Close urine output measurement Discussed with Dr. Tristan Warren PGY2
[2018-03-08] MEDS: Cilostazol 100 mg Tab UD PO SCH (11:11)
--- NOTE | 2018-03-08 12:17 | CP.PCM.PN ---
<Rocio Means - Last Filed: 03/08/18 12:15> Subjective - Date & Time of Evaluation Date of Evaluation: 03/08/18 Time of Evaluation: 12:16 - Subjective Subjective: Podiatry Progress Note for Dr. Irvin: 78 year old male seen at bedside regarding necrotic changes to left digits and is 3 days s/p R AKA. Patient is AAO x 3 and NAD, resting in bed. States that he still has intermittent bursts of pain to his LLE, espeically when he digits are touched. Denies any further pedal complaints at this time. Currently denies any n/v/f/c/sob/cp. Objective - Vital Signs/Intake and Output Vital Signs (last 24 hours): Temp Pulse Resp BP Pulse Ox 98.6 F 64 20 123/67 95 03/08/18 06:00 03/08/18 11:15 03/08/18 06:00 03/08/18 11:15 03/08/18 06:00 Intake and Output: 03/08/18 03/08/18 06:59 18:59 Intake Total 365 Balance 365 - Medications Medications: Current Medications Acetaminophen (Tylenol 325mg Tab) 650 mg PO Q6H PRN PRN Reason: Pain, severe (8-10) Last Admin: 03/08/18 02:11 Dose: 650 mg Albuterol/Ipratropium (Duoneb 3 Mg/0.5 Mg (3 Ml) Ud) 3 ml IH [id number] [facility] Last Admin: 03/08/18 07:31 Dose: Not Given Amlodipine Besylate (Norvasc) 10 mg PO DAILY [facility] Last Admin: 03/08/18 11:13 Dose: 10 mg Atorvastatin Calcium (Lipitor) 20 mg PO DIN [facility] Last Admin: 03/07/18 17:44 Dose: 20 mg Calcium Acetate (Phoslo) 667 mg PO WM [facility] Last Admin: 03/08/18 11:11 Dose: 667 mg Calcium Carbonate (Caltrate) 600 mg PO DAILY [facility] Last Admin: 03/08/18 11:13 Dose: 600 mg Cilostazol (Pletal) 100 mg PO BID [facility] Last Admin: 03/08/18 11:11 Dose: 100 mg Docusate Sodium (Colace) 100 mg PO BID [facility] Last Admin: 06/10/18 11:11 Dose: 100 mg Doxercalciferol (Hectorol) 0.5 mcg PO DAILY [facility] Last Admin: 03/08/18 11:14 Dose: 0.5 mcg Dronabinol (Marinol) 2.5 mg PO BID [facility] Last Admin: 03/08/18 11:12 Dose: 2.5 mg Ergocalciferol (Drisdol 50,000 Intl Units Cap) 1 cap PO Q7D [facility] Last Admin: 03/02/18 14:04 Dose: 1 cap Heparin Sodium (Porcine) (Heparin) 5,000 units SC Q12 MARGOTH PRN Reason: Protocol Last Admin: 03/08/18 11:14 Dose: 5,000 units Hydralazine HCl (Apresoline) 10 mg PO QID PRN PRN Reason: for sbp>160 Last Admin: 03/06/18 10:10 Dose: 10 mg Hydromorphone HCl (Dilaudid) 1 mg IVP Q6 PRN PRN Reason: PAIN SEVERE [8-10] Last Admin: 03/06/18 17:43 Dose: 1 mg Iron Sucrose 100 mg/ Sodium (Chloride) 105 mls @ 210 mls/hr IVPB QWK [facility] Last Admin: 03/07/18 09:28 Dose: 210 mls/hr Levothyroxine Sodium (Synthroid) 25 mcg PO 0600 [facility] Last Admin: 03/08/18 05:08 Dose: 25 mcg Metoprolol Tartrate (Lopressor) 50 mg PO BID [facility] Last Admin: 03/08/18 11:15 Dose: 50 mg Ondansetron HCl (Zofran Inj) 4 mg IVP ONCE PRN PRN Reason: Nausea/Vomiting Pantoprazole Sodium (Protonix Ec Tab) 40 mg PO 0600,1600 [facility] Last Admin: 03/08/18 05:08 Dose: 40 mg Pentoxifylline (Pentoxil) 400 mg PO TID [facility] Last Admin: 03/08/18 11:13 Dose: 400 mg Tramadol HCl (Ultram) 50 mg PO TID [facility] Last Admin: 03/08/18 11:16 Dose: 50 mg - Labs Labs: 03/08/18 08:00 03/08/18 08:00 PT 12.7 SECONDS (9.4-12.5) H 03/04/18 13:00 INR 1.10 (0.93-1.08) H 03/04/18 13:00 APTT 30.6 Seconds (25.1-36.5) 03/04/18 13:00 - Constitutional Appears: Non-toxic, No Acute Distress - Extremities Exam Additional comments: Right lower extremity exam: AKA noted Left lower extremity focused exam: Vasc: DP and PT pulses non-palpable, temperature gradient cool to cool, no edema noted to the LE, CFT > 3 seconds to the digits Derm: Left foot digit 3 and 4 appear hyperpigmented and gangrenous with no open lesions, distinct demarcation noted. No drainage, no erythema, no streaking, no clinical suspicion of active infection. All gangrenous changes noted to be dry and stable. No evidence of new gangrenous changes since last examination Neuro: Epicritic and protective sensation grossly diminished b/l Ortho: Mild pain on the left forefoot, unable to perform MMT secondary to guarding. - Neurological Exam Neurological Exam: Alert, Awake, Oriented x3 - Psychiatric Exam Psychiatric exam: Normal Affect, Normal Mood Assessment and Plan - Assessment and Plan (Free Text) Assessment: 78 year old male with gangrenous changes to left third and fourth digits Plan: Patient seen and evaluated Discussed with attending Dr. Irvin Afebrile, WBC 12.3 Continue pain medication All gangrenous changes painted with betadine, no dressing per patient request No plan for surgical intervention at this time Podiatry will continue to follow while patient in house <Sylwia Irvin - Last Filed: 03/08/18 20:23> Objective - Vital Signs/Intake and Output Vital Signs (last 24 hours): Temp Pulse Resp BP Pulse Ox 98.6 F 64 20 123/67 95 03/08/18 06:00 03/08/18 11:15 03/08/18 06:00 03/08/18 11:15 03/08/18 06:00 - Labs Labs: 03/08/18 08:00 03/08/18 08:00 PT 12.7 SECONDS (9.4-12.5) H 03/04/18 13:00 INR 1.10 (0.93-1.08) H 03/04/18 13:00 APTT 30.6 Seconds (25.1-36.5) 03/04/18 13:00 Attending/Attestation - Attestation I have personally seen and examined this patient.: Yes I have fully participated in the care of the patient.: Yes I have reviewed all pertinent clinical information, including history, physical exam and plan: Yes
--- NOTE | 2018-03-08 13:49 | CP.PCM.PN ---
Subjective - Date & Time of Evaluation Date of Evaluation: 03/08/18 Time of Evaluation: 12:15 - Subjective Subjective: No fevers, not in distress. Objective - Vital Signs/Intake and Output Vital Signs (last 24 hours): Temp Pulse Resp BP Pulse Ox 97.6 F 63 18 122/73 95 03/08/18 01:58 03/08/18 01:58 03/08/18 01:58 03/08/18 01:58 03/07/18 22:00 Intake and Output: 03/08/18 03/08/18 06:59 18:59 Intake Total 365 Balance 365 - Medications Medications: Current Medications Acetaminophen (Tylenol 325mg Tab) 650 mg PO Q6H PRN PRN Reason: Pain, severe (8-10) Last Admin: 03/08/18 02:11 Dose: 650 mg Albuterol/Ipratropium (Duoneb 3 Mg/0.5 Mg (3 Ml) Ud) 3 ml IH [id number] [facility] Last Admin: 03/08/18 07:31 Dose: Not Given Amlodipine Besylate (Norvasc) 10 mg PO DAILY [facility] Last Admin: 03/07/18 09:27 Dose: 10 mg Atorvastatin Calcium (Lipitor) 20 mg PO DIN [facility] Last Admin: 03/07/18 17:44 Dose: 20 mg Calcium Acetate (Phoslo) 667 mg PO WM [facility] Last Admin: 03/07/18 17:44 Dose: 667 mg Calcium Carbonate (Caltrate) 600 mg PO DAILY [facility] Last Admin: 03/07/18 09:26 Dose: 600 mg Cilostazol (Pletal) 100 mg PO BID [facility] Last Admin: 03/07/18 17:44 Dose: 100 mg Docusate Sodium (Colace) 100 mg PO BID [facility] Last Admin: 03/07/18 17:44 Dose: 100 mg Doxercalciferol (Hectorol) 0.5 mcg PO DAILY [facility] Last Admin: 03/07/18 09:27 Dose: 0.5 mcg Dronabinol (Marinol) 2.5 mg PO BID [facility] Ergocalciferol (Drisdol 50,000 Intl Units Cap) 1 cap PO Q7D [facility] Last Admin: 03/02/18 14:04 Dose: 1 cap Heparin Sodium (Porcine) (Heparin) 5,000 units SC Q12 MARGOTH PRN Reason: Protocol Last Admin: 03/07/18 21:31 Dose: 5,000 units Hydralazine HCl (Apresoline) 10 mg PO QID PRN PRN Reason: for sbp>160 Last Admin: 03/06/18 10:10 Dose: 10 mg Hydromorphone HCl (Dilaudid) 1 mg IVP Q6 PRN PRN Reason: PAIN SEVERE [8-10] Last Admin: 03/06/18 17:43 Dose: 1 mg Iron Sucrose 100 mg/ Sodium (Chloride) 105 mls @ 210 mls/hr IVPB QWK [facility] Last Admin: 03/07/18 09:28 Dose: 210 mls/hr Levothyroxine Sodium (Synthroid) 25 mcg PO 0600 [facility] Last Admin: 03/08/18 05:08 Dose: 25 mcg Metoprolol Tartrate (Lopressor) 50 mg PO BID [facility] Last Admin: 03/07/18 17:44 Dose: 50 mg Ondansetron HCl (Zofran Inj) 4 mg IVP ONCE PRN PRN Reason: Nausea/Vomiting Pantoprazole Sodium (Protonix Ec Tab) 40 mg PO 0600,1600 [facility] Last Admin: 03/08/18 05:08 Dose: 40 mg Pentoxifylline (Pentoxil) 400 mg PO TID [facility] Last Admin: 03/07/18 17:44 Dose: 400 mg Tramadol HCl (Ultram) 50 mg PO TID [facility] Last Admin: 03/07/18 17:45 Dose: 50 mg - Labs Labs: 03/08/18 08:00 03/07/18 07:35 PT 12.7 SECONDS (9.4-12.5) H 03/04/18 13:00 INR 1.10 (0.93-1.08) H 03/04/18 13:00 APTT 30.6 Seconds (25.1-36.5) 03/04/18 13:00 - Constitutional Appears: Chronically Ill - Head Exam Head Exam: NORMAL INSPECTION - ENT Exam ENT Exam: Mucous Membranes Moist - Neck Exam Neck Exam: absent: Lymphadenopathy, Meningismus - Respiratory Exam Respiratory Exam: Decreased Breath Sounds - Cardiovascular Exam Cardiovascular Exam: +S1, +S2 - GI/Abdominal Exam GI & Abdominal Exam: Soft. absent: Tenderness Assessment and Plan - Assessment and Plan (Free Text) Plan: Assessment C. diff. 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
--- NOTE | 2018-03-08 21:08 | PN ---
DATE: 03/08/2018 PULMONARY PROGRESS NOTE REFERRING PHYSICIAN: Shivani Walters MD. SUBJECTIVE: He is lying in the bed, head at 45 degrees. Night was unremarkable. Yesterday's, events noted. Anemia requiring transfusion. No chest pain. No shortness of breath. No nausea, no vomiting. Mild stump area discomfort. Also, ischemia of the left foot. PHYSICAL EXAMINATION: GENERAL: In no acute distress. VITAL SIGNS: Temperature is 98, heart rate is 64, respiratory rate is 20, blood pressure 123/67, pulse ox 95% room air. HEENT: Moist mucous membranes. No ulcer or thrush noted. NECK: Supple. No JVD. LUNGS: Have a fair airflow with rhonchi. HEART: S2, S2. ABDOMEN: Soft, nontender. No organomegaly. EXTREMITIES: Right AKA site covered with dressing. Left foot has some ischemic changes. NEUROLOGIC: Awake, alert, and follows simple command. MEDICATIONS: He is on hydralazine 10 mg four times a day p.r.n., also calcium carbonate 600 mg daily, Colace 100 mg twice a day, vitamin D 50,000 units weekly, DuoNeb every 6 hours, heparin 5000 units subcu every 12 hours, IV iron, Lipitor 20 mg daily, metoprolol tartrate 50 mg twice a day, Marinol 2.5 mg twice a day, Norvasc 10 mg daily, pentoxifylline 400 mg three times a day, PhosLo with meals, Pletal 100 mg twice a day, Protonix 40 mg twice a day, Synthroid 25 mcg daily, Tylenol p.r.n., Ultram 50 mg three times a day, and Zofran p.r.n. basis. LABORATORY DATA: Shows hemoglobin 10.8, hematocrit 32.7, WBC 12.3, platelet is 179. Sodium 137, potassium 3.6, chloride 102, bicarbonate 24, BUN 40, creatinine 4.1, calcium 7.7. AST 23, ALT 23, alkaline phosphatase is 132. Albumin 2.6. IMPRESSION AND PLAN: Chronic obstructive lung disease, renal failure, perihilar infiltrate, lower extremity ischemia status post right above-knee amputation, pulmonary hypertension, history of cerebrovascular accident in the past, renal failure, anemia status post transfusion. Hemodynamically, stable. Could be discharged to acute inpatient rehab. According to nursing staff, the patient is scheduled to go to [facility]. Keep head elevated at 45 degrees. Further pressure ulcer precaution. Need close monitoring of the left lower extremity ischemia. Jt Hayden MD
== END 2018-03-08 17:48 | DRG 239 ==
LOC: ED 03:08 → ERH 05:32 → 2RNO 06:39 → 5RSO 02-26 18:57
PROVIDERS: ADMIT Internal Medicine; ATTEND Internal Medicine
PROC: 30233N1 Transfusion of Nonautologous Red Blood Cells into Peripheral Vein, Percutaneous Approach (ICD-10-PCS; 2018-02-21)
PROC: 0Y6C0Z3 Detachment at Right Upper Leg, Low, Open Approach (ICD-10-PCS; principal; 2018-03-05 10:00)
DX: E11.52 Type 2 diabetes mellitus with diabetic peripheral angiopathy with gangrene (principal); G93.40 Encephalopathy, unspecified; N17.9 Acute kidney failure, unspecified; N18.5 Chronic kidney disease, stage 5; A04.72 Enterocolitis due to Clostridium difficile, not specified as recurrent; R64 Cachexia; Z68.1 Body mass index [BMI] 19.9 or less, adult; I13.2 Hypertensive heart and chronic kidney disease with heart failure and with stage 5 chronic kidney disease, or end stage renal disease; I50.30 Unspecified diastolic (congestive) heart failure; N25.81 Secondary hyperparathyroidism of renal origin; E87.2 Acidosis; E46 Unspecified protein-calorie malnutrition; L03.115 Cellulitis of right lower limb; J44.9 Chronic obstructive pulmonary disease, unspecified; D63.1 Anemia in chronic kidney disease; E11.22 Type 2 diabetes mellitus with diabetic chronic kidney disease; E55.9 Vitamin D deficiency, unspecified; I27.20 Pulmonary hypertension, unspecified; I70.1 Atherosclerosis of renal artery; I08.1 Rheumatic disorders of both mitral and tricuspid valves; E87.6 Hypokalemia; E86.9 Volume depletion, unspecified; I25.10 Atherosclerotic heart disease of native coronary artery without angina pectoris; E83.51 Hypocalcemia; N28.1 Cyst of kidney, acquired; E11.621 Type 2 diabetes mellitus with foot ulcer; L97.529 Non-pressure chronic ulcer of other part of left foot with unspecified severity; L97.519 Non-pressure chronic ulcer of other part of right foot with unspecified severity; E78.5 Hyperlipidemia, unspecified; M24.569 Contracture, unspecified knee; L89.90 Pressure ulcer of unspecified site, unspecified stage; Z86.73 Personal history of transient ischemic attack (TIA), and cerebral infarction without residual deficits; Z74.01 Bed confinement status; Z79.84 Long term (current) use of oral hypoglycemic drugs; Z87.891 Personal history of nicotine dependence